=== PATIENT | male | born 1955 | race Caucasian/White ===

== ENCOUNTER 2017-04-26 16:59 | Inpatient (IN) | payer OTHER ==
--- NOTE | 2017-04-26 17:11 | PD ---
HPI Chief Complaint: BA Time Seen by Provider: 17:39 Travel History International Travel<30 days: No Contact w/Intl Traveler<30days: No Traveled to known affect area: No History of Present Illness HPI 61-year-old male presents under Dwyer act initially by the Police Department. 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 He told the [facility] hotel that he wants to and therefore police were called and he was brought here. The patient reports that he wants to . He otherwise refuses to answer any questions. 1943: The police have now reported that the patient will not be Dwyer acted and instead he is being placed under arrest because he has a warrant out for his arrest. [facility] Past Medical History Anxiety: Yes Depression: Yes Chest Pain: Yes COPD: Yes Cerebrovascular Accident: Yes (2007) Diminished Hearing: No Gastrointestinal Disorders: Yes Headaches: Yes Musculoskeletal: Yes (STATES HX BROKEN BACK AND NECK AND RIGHT HIP) Neurologic: Yes Immunizations Current: Yes Migraines: Yes Myocardial Infarction: Yes Pneumonia: Yes Seizures: Yes (HAS NOT TAKEN MEDS FOR > 1 YEAR) Past Surgical History Neurologic Surgery: No Other Surgery: No Social History Alcohol Use: Yes Tobacco Use: Yes Substance Use: No Allergies-Medications (Allergen,Severity, Reaction): Coded Allergies: codeine (Unverified Allergy, Severe, N/V, 04/26/17) propoxyphene (Unverified Allergy, Severe, HIVES, 04/26/17) Reported Meds & Prescriptions Reported Meds & Active Scripts Active Review of Systems ROS Limitations: Refused Except as stated in HPI: all other systems reviewed are Neg Physical Exam Exam Limitations: Refused Narrative GENERAL: This is a disheveled male who appears older than his stated age. He is verbally aggressive. SKIN: Warm and dry. Poor skin turgor, jaundiced. HEAD: Atraumatic. Normocephalic. EYES: Pupils equal and round. Mild scleral icterus. No injection or drainage. ENT: No nasal bleeding or discharge. Mucous membranes pink and moist. NECK: Trachea midline. No JVD. CARDIOVASCULAR: Regular rate and rhythm. No murmur appreciated. RESPIRATORY: No accessory muscle use. Some expiratory wheezing noted bilaterally. GASTROINTESTINAL: Abdomen soft, distended, ascites noted, generalized tenderness to palpation. MUSCULOSKELETAL: No obvious deformities. No clubbing. No cyanosis. No edema. NEUROLOGICAL: Awake and alert. No obvious cranial nerve deficits. Motor grossly within normal limits. Normal speech. Data Data Last Documented VS Vital Signs Date Time Temp Pulse Resp B/P (MAP) Pulse Ox O2 Delivery O2 Flow Rate FiO2 04/26/17 21:27 57 18 115/78 (90) 95 Room Air 04/26/17 17:28 98.1 Orders Orders Complete Blood Count With Diff (04/26/17 17:24) Comprehensive Metabolic Panel (04/26/17:24) Lipase (04/26/17:24) Urinalysis - C+S If Indicated (04/26/17 17:24) Iv Access Insert/Monitor (04/26/17:24) Ecg Monitoring (04/26/17:24) Oximetry (04/26/17:24) Sodium Chlor 0.9% 1000 Ml Inj (Ns 1000 M (04/26/17 17:24) Sodium Chloride 0.9% Flush (Ns Flush) (04/26/17 17:30) Electrocardiogram (04/26/17:24) Ammonia (04/26/17 17:24) Lactic Acid Sepsis Protocol (04/26/17 17:24) Blood Culture (04/26/17 17:24) Chest, Single Ap (04/26/17 17:24) Lorazepam Inj (Ativan Inj) (04/26/17 18:00) Vascular Access Team Consult/P PRN (04/26/17 17:50) Vascular Poc Ultrasound (04/26/17 ) Alcohol (Ethanol) (04/26/17 19:59) Ceftriaxone Inj (Rocephin Inj) (04/26/17 20:45) Azithromycin Inj (Zithromax Inj) (04/26/17 20:45) Urine Culture (04/26/17 20:10) Sodium Chlor 0.9% 1000 Ml Inj (Ns 1000 M (04/26/17 20:44) Ct Abd/Pel W/O Iv Contrast (04/26/17 17:24) Act Partial Throm Time (Ptt) (04/26/17 22:14) Prothrombin Time / Inr (Pt) (04/26/17 22:14) Admit Order (Ed Use Only) (04/26/17 22:15) Labs Laboratory Tests Test 04/26/17 19:50 04/26/17 20:10 White Blood Count 21.6 TH/MM3 Red Blood Count 3.58 MIL/MM3 Hemoglobin 10.1 GM/DL Hematocrit 32.0 % Mean Corpuscular Volume 89.4 FL Mean Corpuscular Hemoglobin 28.2 PG Mean Corpuscular Hemoglobin Concent 31.6 % Red Cell Distribution Width 13.5 % Platelet Count 208 TH/MM3 Mean Platelet Volume 9.5 FL Neutrophils (%) (Auto) 80.3 % Lymphocytes (%) (Auto) 11.0 % Monocytes (%) (Auto) 7.0 % Eosinophils (%) (Auto) 1.0 % Basophils (%) (Auto) 0.7 % Neutrophils # (Auto) 17.4 TH/MM3 Lymphocytes # (Auto) 2.4 TH/MM3 Monocytes # (Auto) 1.5 TH/MM3 Eosinophils # (Auto) 0.2 TH/MM3 Basophils # (Auto) 0.2 TH/MM3 CBC Comment DIFF FINAL Differential Comment Blood Urea Nitrogen 38 MG/DL Creatinine 2.51 MG/DL Random Glucose 106 MG/DL Total Protein 7.2 GM/DL Albumin 0.9 GM/DL Calcium Level 7.0 MG/DL Alkaline Phosphatase 188 U/L Aspartate Amino Transf (AST/SGOT) 121 U/L Alanine Aminotransferase (ALT/SGPT) 31 U/L Total Bilirubin 2.9 MG/DL Sodium Level 135 MEQ/L Potassium Level 3.6 MEQ/L Chloride Level 102 MEQ/L Carbon Dioxide Level 19.2 MEQ/L Anion Gap 14 MEQ/L Estimat Glomerular Filtration Rate 26 ML/MIN Lactic Acid Level 2.4 mmol/L Protein Corrected Calcium 7.0 MG/DL Ammonia 54 MCMOL/L Lipase 22 U/L Urine Color DARK-BROWN Urine Turbidity CLOUDY Urine pH 5.0 Urine Specific [place] 1.019 Urine Protein 30 mg/dL Urine Glucose (UA) NEG mg/dL Urine Ketones NEG mg/dL Urine Occult Blood SMALL Urine Nitrite NEG Urine Bilirubin MOD Urine Urobilinogen GREATER THAN 12.0 MG/DL Urine Leukocyte Esterase LARGE Urine RBC 2 /hpf Urine WBC 18 /hpf Urine Squamous Epithelial Cells 6 /hpf Urine Amorphous Sediment RARE Urine Bacteria MANY /hpf Urine Hyaline Casts 54 /lpf Microscopic Urinalysis Comment CULTURE INDICATED MDM Medical Decision Making Medical Screen Exam Complete: Yes Emergency Medical Condition: Yes Medical Record Reviewed: Yes Differential Diagnosis Failure to thrive, alcohol intoxication, alcoholic cirrhosis, SBP, pneumonia, COPD, colitis, dehydration, urinary tract infection Narrative Course 61-year-old male is brought in by EMS with the initial report that the patient was under Dwyer act for suicidal statements made at his hotel. The police arrived and reported that in fact he will not be placed under Dwyer act and instead he will be placed under arrest because he is under a warrant. On initial examination the patient appears chronically ill, jaundiced, ascites noted on examination, concerning for alcoholic cirrhosis. He has generalized mild tenderness to palpation of the abdomen without guarding. He has wheezing on auscultation of the lungs. He appears dehydrated. He is verbally aggressive. Plan is for lab work, chest x-ray, CT abdomen and pelvis. Blood cultures obtained. The patient was given IV fluids. CONCLUSION: Mild interstitial opacities in the upper left lung. No evidence of pneumothorax. Multiple left rib fractures stable from prior. Broad spectrum antibiotics initiated. CBC WBC 21.6, his calcium is 7.0, his lactic acid is 2.4 , ammonia is 54, total bilirubin is 2.9, GFR is 26, urinalysis reveals large leukocytes. CT of the abdomen and pelvis reveals severe abdominal pelvic ascites with steatosis of the liver. Discussed with the admitting hospitalist Dr. Norman who is agreeable with admission. Sepsis Criteria SIRS Criteria (2 or more): Heart rate over 90, WBC > 84931, < 4000 or > 10% bands Sepsis Criteria (SIRS+source): Infect source susp/known Severe Sepsis (+one): Lactate >2 Criteria Outcome: Meets severe sepsis criteria Diagnosis Primary Impression: Pneumonia Qualified Codes: J18.1 - Lobar pneumonia, unspecified organism Additional Impressions: Severe sepsis Acute kidney injury Hepatic encephalopathy Admitting Information Admitting Physician Requests: Admit Jace Vivas Apr 26, 2017 17:11
[2017-04-26 17:15] VITALS: BP 160/79; PULSE 102; RESP 18; TEMP 98.1; O2SAT 98
[2017-04-26 17:24] VITALS: BP 160/79; PULSE 102; RESP 18; TEMP 98.1; O2SAT 95
[2017-04-26] MEDS ORDERED: SODIUM CHLOR 0.9% 1000 ML INJ 1,000 ML IV SCH ×3 (17:24→22:17)
[2017-04-26 17:28] VITALS: BP 160/79; PULSE 102; RESP 20; TEMP 98.1; O2SAT 96
[2017-04-26] MEDS ORDERED: SODIUM CHLORIDE 0.9% FLUSH 10 ML FLUSH IV FLUSH PRN (17:30)
[2017-04-26] MEDS ORDERED: LORazepam 2 MG/ML VIAL IV PUSH ONE (18:00)
--- NOTE | 2017-04-26 18:56 | RADRPT ---
EXAM DATE/TIME: 04/26/2017 18:03 [facility] COMPARISON: CHEST SINGLE AP, April 05, 2015, 19:35. INDICATIONS : Short of breath. MEDICAL HISTORY : Chronic obstructive pulmonary disease. SURGICAL HISTORY : None. ENCOUNTER: Initial ACUITY: 1 day PAIN SCORE: Non-responsive. LOCATION: Bilateral chest FINDINGS: There is asymmetric interstitial opacity in the left upper lung. No focal areas of consolidation. T he right lung is clear. The heart is normal size. No evidence of pneumothorax. Both hemidiaphragms well delineated. Fractures of the left ribs and left clavicle. CONCLUSION: Mild interstitial opacities in the upper left lung. No evidence of pneumothorax. Multiple left rib fractures stable from prior. Cliff Lugo MD on April 26, 2017 at 18:53 Board Certified Radiologist. This report was verified electronically.
[2017-04-26 20:25] LABS: AUTOMATED NEUTROPHIL # 17.4 TH/MM3 (1.8-7.7); BASOPHIL # 0.2 TH/MM3 (0-0.2); BASOPHIL % 0.7 % (0.0-2.0); EOSINOPHIL # 0.2 TH/MM3 (0-0.4); HEMO FLAGS DIFF FINAL; LYMPHOCYTE # 2.4 TH/MM3 (1.0-4.8); MEAN CELL VOLUME 89.4 FL (80.0-100.0); MEAN CORPUSCULAR HEMOGLOBIN 28.2 PG (27.0-34.0); MEAN CORPUSCULAR HGB CONC 31.6 % (32.0-36.0); NEUT % 80.3 % (16.0-70.0); PLATELET COUNT 208 TH/MM3 (150-450); RED BLOOD COUNT 3.58 MIL/MM3 (4.50-5.90); RED CELL DISTRIBUTION WIDTH 13.5 % (11.6-17.2); WHITE BLOOD COUNT 21.6 TH/MM3 (4.0-11.0)
[2017-04-26 20:32] VITALS: BP 115/78; PULSE 75; RESP 18; O2SAT 95
[2017-04-26 20:32] LABS: BACTERIA, URINE MANY /hpf; BLOOD, URINE SMALL (NEG); COMMENT (UR) CULTURE INDICATED; CULTURE IF INDICATED CULTURE INDICATED; GLUCOSE,URINE NEG (NEG); HYALINE CAST, URINE 54 /lpf (RARE); KETONE, URINE NEG (NEG); NITRITE,URINE NEG (NEG); SQUAMOUS EPITHELIAL CELL URINE 6 /hpf (0-5); URINE COLOR DARK-BROWN (YELLW/STRAW)
[2017-04-26 20:37] LABS: BICARBONATE 19.2 MEQ/L (21.0-32.0); TOTAL BILIRUBIN ADULT 2.9 MG/DL (0.2-1.0)
[2017-04-26 20:39] LABS: POTASSIUM 3.6 MEQ/L (3.5-5.1)
[2017-04-26] MEDS ORDERED: AZITHROMYCIN INJ 500 MG in SODIUM CHLOR 0.9% 250 ML INJ 250 ML IV ONE (20:45)
[2017-04-26] MEDS ORDERED: cefTRIAXone INJ 1,000 MG in SODIUM CHLORIDE 0.9% INJ 100 ML IV ONE (20:45)
[2017-04-26 21:27] VITALS: BP 115/78; PULSE 57; RESP 18; O2SAT 95
--- NOTE | 2017-04-26 21:56 | RADRPT ---
EXAM DATE/TIME: 04/26/2017 21:23 [facility] COMPARISON: No previous studies available for comparison. INDICATIONS : Abdominal pain, failure to thrive. ORAL CONTRAST: No oral contrast ingested. RADIATION DOSE: 14.60 CTDIvol (mGy) MEDICAL HISTORY : Cardiovascular disease. Seizures. Cerebrovascular disease.renal disease SURGICAL HISTORY : ENCOUNTER: Initial ACUITY: 1 day PAIN SCALE: 5/10 LOCATION: abdomen TECHNIQUE: Volumetric scanning of the abdomen and pelvis was performed. Using automated exposure control and ad justment of the mA and/or kV according to patient size, radiation dose was kept as low as reasonably achievable to obtain optimal diagnostic quality images. DICOM format image data is available electro nically for review and comparison. FINDINGS: LOWER LUNGS: The visualized lower lungs are clear. LIVER: Severe and diffuse fatty change. No focal lesions for noncontrast technique. No calcified gallstone s. SPLEEN: Normal size without lesion. PANCREAS: Within normal limits. KIDNEYS: Normal in size and shape. There is no mass, stone, or hydronephrosis. ADRENAL GLANDS: Within normal limits. VASCULAR: There is no aortic aneurysm. BOWEL/MESENTERY: No dilated loops of small or large bowel. There is a severe amount of ascites throughout the abdomen and pelvis. ABDOMINAL WALL: Within normal limits. RETROPERITONEUM: There is no lymphadenopathy. BLADDER: No wall thickening or mass. REPRODUCTIVE: Within normal limits. INGUINAL: Fat-containing right inguinal hernia with oval opacity seen within the inguinal canal, probably repre senting testicle. MUSCULOSKELETAL: Diffuse osteopenia. CONCLUSION: 1. Severe abdomino-pelvic ascites. 2. Steatosis of the liver. 3. Right inguinal hernia. Cliff Lugo MD on April 26, 2017 at 21:52 Board Certified Radiologist. This report was verified electronically.
--- NOTE | 2017-04-26 22:04 | PD ---
Data Data Last Documented VS Vital Signs Date Time Temp Pulse Resp B/P (MAP) Pulse Ox O2 Delivery O2 Flow Rate FiO2 04/26/17 21:27 57 18 115/78 (90) 95 Room Air 04/26/17 17:28 98.1 Orders Orders Complete Blood Count With Diff (04/26/17 17:24) Comprehensive Metabolic Panel (04/26/17 17:24) Lipase (04/26/17:24) Urinalysis - C+S If Indicated (04/26/17 17:24) Iv Access Insert/Monitor (04/26/17 17:24) Ecg Monitoring (04/26/17:24) Oximetry (04/26/17:24) Sodium Chlor 0.9% 1000 Ml Inj (Ns 1000 M (04/26/17 17:24) Sodium Chloride 0.9% Flush (Ns Flush) (04/26/17 17:30) Electrocardiogram (04/26/17:24) Ammonia (04/26/17:24) Lactic Acid Sepsis Protocol (04/26/17 17:24) Blood Culture (04/26/17 17:24) Chest, Single Ap (04/26/17 17:24) Lorazepam Inj (Ativan Inj) (04/26/17 18:00) Vascular Access Team Consult/P PRN (04/26/17 17:50) Vascular Poc Ultrasound (04/26/17 ) Alcohol (Ethanol) (04/26/17 19:59) Ceftriaxone Inj (Rocephin Inj) (04/26/17 20:45) Azithromycin Inj (Zithromax Inj) (04/26/17 20:45) Urine Culture (04/26/17 20:10) Sodium Chlor 0.9% 1000 Ml Inj (Ns 1000 M (04/26/17 20:44) Ct Abd/Pel W/O Iv Contrast (04/26/17 17:24) Act Partial Throm Time (Ptt) (04/26/17 22:14) Prothrombin Time / Inr (Pt) (04/26/17 22:14) Admit Order (Ed Use Only) (04/26/17 22:15) Labs Laboratory Tests Test 04/26/17 19:50 04/26/17 20:10 White Blood Count 21.6 TH/MM3 Red Blood Count 3.58 MIL/MM3 Hemoglobin 10.1 GM/DL Hematocrit 32.0 % Mean Corpuscular Volume 89.4 FL Mean Corpuscular Hemoglobin 28.2 PG Mean Corpuscular Hemoglobin Concent 31.6 % Red Cell Distribution Width 13.5 % Platelet Count 208 TH/MM3 Mean Platelet Volume 9.5 FL Neutrophils (%) (Auto) 80.3 % Lymphocytes (%) (Auto) 11.0 % Monocytes (%) (Auto) 7.0 % Eosinophils (%) (Auto) 1.0 % Basophils (%) (Auto) 0.7 % Neutrophils # (Auto) 17.4 TH/MM3 Lymphocytes # (Auto) 2.4 TH/MM3 Monocytes # (Auto) 1.5 TH/MM3 Eosinophils # (Auto) 0.2 TH/MM3 Basophils # (Auto) 0.2 TH/MM3 CBC Comment DIFF FINAL Differential Comment Blood Urea Nitrogen 38 MG/DL Creatinine 2.51 MG/DL Random Glucose 106 MG/DL Total Protein 7.2 GM/DL Albumin 0.9 GM/DL Calcium Level 7.0 MG/DL Alkaline Phosphatase 188 U/L Aspartate Amino Transf (AST/SGOT) 121 U/L Alanine Aminotransferase (ALT/SGPT) 31 U/L Total Bilirubin 2.9 MG/DL Sodium Level 135 MEQ/L Potassium Level 3.6 MEQ/L Chloride Level 102 MEQ/L Carbon Dioxide Level 19.2 MEQ/L Anion Gap 14 MEQ/L Estimat Glomerular Filtration Rate 26 ML/MIN Lactic Acid Level 2.4 mmol/L Protein Corrected Calcium 7.0 MG/DL Ammonia 54 MCMOL/L Lipase 22 U/L Urine Color DARK-BROWN Urine Turbidity CLOUDY Urine pH 5.0 Urine Specific [place] 1.019 Urine Protein 30 mg/dL Urine Glucose (UA) NEG mg/dL Urine Ketones NEG mg/dL Urine Occult Blood SMALL Urine Nitrite NEG Urine Bilirubin MOD Urine Urobilinogen GREATER THAN 12.0 MG/DL Urine Leukocyte Esterase LARGE Urine RBC 2 /hpf Urine WBC 18 /hpf Urine Squamous Epithelial Cells 6 /hpf Urine Amorphous Sediment RARE Urine Bacteria MANY /hpf Urine Hyaline Casts 54 /lpf Microscopic Urinalysis Comment CULTURE INDICATED MDM Medical Record Reviewed: Yes Supervised Visit with OLLIE: Yes Narrative Course Please refer the mid-level note. The patient has sepsis UTI and pneumonia. Altered mental status is also noted of indeterminate chronicity. The patient does not have decisional capacity to leave AGAINST MEDICAL ADVICE or refuse care. Rocephin and azithromycin started. Prerenal azotemia with renal insufficiency of indeterminate chronicity noted. 2 L IV saline started. Diagnosis Primary Impression: Pneumonia Qualified Codes: J18.1 - Lobar pneumonia, unspecified organism Additional Impressions: Acute kidney injury Severe sepsis Hepatic encephalopathy Admitting Information Admitting Physician Requests: Admit Andrzej Hill MD Apr 26, 2017 22:04
[2017-04-26 22:13] LABS: LACTIC ACID GHOST NOT REPORTABLE
[2017-04-26] MEDS ORDERED: NALOXONE HCL 0.4 MG/ML AMP IV PUSH PRN (22:30)
[2017-04-26] MEDS ORDERED: LORazepam 2 MG TAB PO PRN (22:30)
[2017-04-26] MEDS ORDERED: SENNOSIDES 8.6 MG TAB PO PRN (22:30)
[2017-04-26] MEDS ORDERED: MAGNESIUM HYDROXIDE SUSP 30 ML CUP PO PRN (22:30)
[2017-04-26] MEDS ORDERED: LACTULOSE SYRUP 20 GM/30 ML CUP PO PRN (22:30)
[2017-04-26] MEDS ORDERED: BISACODYL 10 MG SUPP RECTAL PRN (22:30)
[2017-04-26] MEDS ORDERED: ONDANSETRON HCL 4 MG/2 ML VIAL IVP PRN (22:30)
[2017-04-26] MEDS ORDERED: LORazepam 2 MG/ML VIAL IV PUSH PRN ×4 (22:30)
[2017-04-26] MEDS ORDERED: FLUMAZENIL 0.5 MG/5 ML VIAL IV PUSH PRN (22:30)
[2017-04-26 22:53] LABS: APTT (PATIENT) 41.4 SEC (24.3-30.1); INTERNATIONAL NORMALIZED RATIO 1.5 RATIO; PROTHROMBIN TIME - PATIENT 16.4 SEC (9.8-11.6)
[2017-04-26 23:19] VITALS: BP 107/61; PULSE 94; RESP 18; TEMP 97.6; O2SAT 95
[2017-04-27] VITALS (40 sets, daily range): BP systolic 74–147; BP diastolic 50–72; PULSE 87–241; RESP 14–36; TEMP 97.6; O2SAT 95–100
[2017-04-27] MEDS ORDERED: PERMETHRIN 1% LOTION 60 ML BTL TOPICAL ONE (00:30)
[2017-04-27] MEDS: RESP: ALBUTEROL 2.5 MG/IPRATROPIUM 0.5 MG NEB (SCH) NEB ×6 (01:09→19:25)
--- NOTE | 2017-04-27 01:29 | HHI.HP ---
HPI Service [facility] ([place], [place])ists Primary Care Physician Unknown Admission Diagnosis severe sepsis, pneumonia, hepatic encephalopathy, acute kidney injur Diagnoses: Travel History International Travel<30 Days: No Contact w/Intl Traveler <30 Da: No Traveled to Known Affected Are: No History of Present Illness 61-year-old male with a past medical history significant for COPD, tobacco and alcohol abuse, seizure disorder and CVA was brought to the emergency department via EMS under supposedly Dwyer act. The patient allegedly told the route salesperson of the hotel where he is staying that he wants to . The police were called and the patient was brought to [facility]. Police reported that the patient will not be Dwyer acted but is being placed under arrest because he has an outstanding warrant. The patient was found to be wheezing severely in the emergency department, has a leukocytosis to 21.6 with a left shift and a left upper lobe pneumonia. He also has abdominal pain and severe ascites. CT of the abdomen and pelvis significant for severe abdominopelvic ascites and steatosis of the liver. Patient's lactic acid is elevated to 2.4. Ammonia 54. UA consistent with urinary tract infection. The patient refused to answer most of my questions during our interview. Review of Systems Unable to obtain as patient refused to answer Past Family Social History Past Medical History (Obtained from medical records) COPD Tobacco and alcohol abuse Cervical fracture Seizure disorder Noncompliance CVA Anxiety and depression History of subdural hematoma Past Surgical History None Reported Medications Reported Meds & Active Scripts Active Allergies: Coded Allergies: codeine (Unverified Allergy, Severe, N/V, 04/26/17) propoxyphene (Unverified Allergy, Severe, HIVES, 04/26/17) Family History Patient refuses to answer Social History Patient refuses to answer. From previous medical records smokes about 6 cigarettes per day since he was 3 years old, drinks about 2-3 beers daily. Physical Exam Vital Signs Vital Signs Date Time Temp Pulse Resp B/P (MAP) Pulse Ox O2 Delivery O2 Flow Rate FiO2 04/27/17 00:00 95 Nasal Cannula 2.00 04/26/17 23:19 97.6 94 18 107/61 (76) 95 04/26/17 23:16 04/26/17 21:27 57 18 115/78 (90) 95 Room Air 04/26/17 20:32 75 18 115/78 (90) 95 Room Air 04/26/17 17:28 98.1 102 20 160/79 (106) 96 Room Air 04/26/17 17:24 102 22 04/26/17 17:24 98.1 102 18 160/79 (106) 95 Room Air 04/26/17 17:15 98.1 102 18 160/79 (106) 98 Physical Exam GENERAL: Chronically ill appearing, disheveled male lying in bed SKIN: No rashes, ecchymoses or lesions. Cool and dry. HEAD: Atraumatic. Normocephalic. No temporal or scalp tenderness. Head lice noted. EYES: Pupils equal round and reactive. Extraocular motions intact. No scleral icterus. No injection or drainage. ENT: Nose without bleeding, purulent drainage or septal hematoma. Airway patent. NECK: Trachea midline. No JVD or lymphadenopathy. Supple, nontender, no meningeal signs. CARDIOVASCULAR: Regular rate and rhythm without murmurs, gallops, or rubs. RESPIRATORY: Bilateral expiratory wheezes. No rales or rhonchi. GASTROINTESTINAL: Abdomen protuberant, diffusely tender to palpation, tense. MUSCULOSKELETAL: Extremities without clubbing, cyanosis, or edema. No joint tenderness, effusion, or edema noted. No calf tenderness. Negative Homans sign bilaterally. NEUROLOGICAL: Awake and alert. Cranial nerves II through XII intact. Motor and sensory grossly within normal limits. Garbled speech that is difficult to understand. Laboratory Laboratory Tests Test 04/26/17 19:50 04/26/17 20:10 04/26/17 22:25 04/26/17 22:52 White Blood Count 21.6 Red Blood Count 3.58 Hemoglobin 10.1 Hematocrit 32.0 Mean Corpuscular Volume 89.4 Mean Corpuscular Hemoglobin 28.2 Mean Corpuscular Hemoglobin Concent 31.6 Red Cell Distribution Width 13.5 Platelet Count 208 Mean Platelet Volume 9.5 Neutrophils (%) (Auto) 80.3 Lymphocytes (%) (Auto) 11.0 Monocytes (%) (Auto) 7.0 Eosinophils (%) (Auto) 1.0 Basophils (%) (Auto) 0.7 Neutrophils # (Auto) 17.4 Lymphocytes # (Auto) 2.4 Monocytes # (Auto) 1.5 Eosinophils # (Auto) 0.2 Basophils # (Auto) 0.2 CBC Comment DIFF FINAL Differential Comment Blood Urea Nitrogen 38 Creatinine 2.51 Random Glucose 106 Total Protein 7.2 Albumin 0.9 Calcium Level 7.0 Alkaline Phosphatase 188 Aspartate Amino Transf (AST/SGOT) 121 Alanine Aminotransferase (ALT/SGPT) 31 Total Bilirubin 2.9 Sodium Level 135 Potassium Level 3.6 Chloride Level 102 Carbon Dioxide Level 19.2 Anion Gap 14 Estimat Glomerular Filtration Rate 26 Lactic Acid Level 2.4 2.5 Protein Corrected Calcium 7.0 Ammonia 54 Lipase 22 Ethyl Alcohol Level LESS THAN 3 Urine Color DARK-BROWN Urine Turbidity CLOUDY Urine pH 5.0 Urine Specific [place] 1.019 Urine Protein 30 Urine Glucose (UA) NEG Urine Ketones NEG Urine Occult Blood SMALL Urine Nitrite NEG Urine Bilirubin MOD Urine Urobilinogen GREATER THAN 12.0 Urine Leukocyte Esterase LARGE Urine RBC 2 Urine WBC 18 Urine Squamous Epithelial Cells 6 Urine Amorphous Sediment RARE Urine Bacteria MANY Urine Hyaline Casts 54 Microscopic Urinalysis Comment CULTURE INDICATED Prothrombin Time 16.4 Prothromb Time International Ratio 1.5 Activated Partial Thromboplast Time 41.4 Date/Time Source Procedure Growth Status 04/26/17 19:50 Blood Peripheral Aerobic Blood Culture Pending Received 04/26/17 19:50 Blood Peripheral Anaerobic Blood Culture Pending Received 04/26/17 20:10 Urine Random Urine Urine Culture Pending Received Result Diagram: 04/26/17194904/26/171949 Caprini VTE Risk Assessment Caprini VTE Risk Assessment: Mod/High Risk (score >= 2) Caprini Risk Assessment Model Point Value = 1 Point Value = 2 Point Value = 3 Point Value = 5 Age 41-60 Minor surgery BMI > 25 kg/m2 Swollen legs Varicose veins or History of unexplained or recurrent spontaneous Oral contraceptives or hormone replacement Sepsis (< 1 month) Serious lung disease, including pneumonia (< 1 month) Abnormal pulmonary function Acute myocardial infarction Congestive heart failure (< 1 month) History of inflammatory bowel disease Medical patient at bed rest Age 61-74 Arthroscopic surgery Major open surgery (> 45 min) Laparoscopic surgery (> 45 min) Malignancy Confined to bed (> 72 hours) Immobilizing plaster cast Central venous access Age >= 75 History of VTE Family history of VTE Factor V Leiden Prothrombin [id number] Lupus anticoagulant Anticardiolipin antibodies Elevated serum homocysteine Heparin-induced thrombocytopenia Other congenital or acquired thrombophilia Stroke (< 1 month) Elective arthroplasty Hip, pelvis, or leg fracture Acute spinal cord injury (< 1 month) Prophylaxis Regimen Total Risk Factor Score Risk Level Prophylaxis Regimen 0-1 Low Early ambulation 2 Moderate Order ONE of the following: *Sequential Compression Device (SCD) *Heparin 5000 units SQ BID 3-4 Higher Order ONE of the following medications: *Heparin 5000 units SQ TID *Enoxaparin/Lovenox 40 mg SQ daily (WT < 150 kg, CrCl > 30 mL/min) *Enoxaparin/Lovenox 30 mg SQ daily (WT < 150 kg, CrCl > 10-29 mL/min) *Enoxaparin/Lovenox 30 mg SQ BID (WT < 150 kg, CrCl > 30 mL/min) AND/OR *Sequential Compression Device (SCD) 5 or more Highest Order ONE of the following medications: *Heparin 5000 units SQ TID (Preferred with Epidurals) *Enoxaparin/Lovenox 40 mg SQ daily (WT < 150 kg, CrCl > 30 mL/min) *Enoxaparin/Lovenox 30 mg SQ daily (WT < 150 kg, CrCl > 10-29 mL/min) *Enoxaparin/Lovenox 30 mg SQ BID (WT < 150 kg, CrCl > 30 mL/min) AND *Sequential Compression Device (SCD) Assessment and Plan Assessment and Plan 61-year-old male with a past medical history significant for COPD, alcohol abuse , noncompliance, CVA and seizure disorder presents to the emergency department under arrest warrant. He is found to have a left upper lobe pneumonia and severe abdominopelvic ascites with accompanying abdominal pain. Urine also significant for UTI. 1. Sepsis With pneumonia and UTI Concern for SBP given abdominal pain and severe ascites Azithromycin/Rocephin IV Fluids Blood cultures pending 2. Pneumonia CXR significant for left upper lobe pneumonia, images reviewed by me Treatment as above 3. UTI Treatment as above Urine culture pending 4. Severe ascites/abdominal pain IR consulted for paracentesis Fluid studies ordered 5. Seizure disorder Patient reports he does not take any medications Unclear if previous seizures were alcohol withdrawal related Seizure precautions [place] protocol 6. COPD Duo nebs 7. Hypocalcemia Calcium carbonate 8. Rib fractures Patient with fractures of the left ribs and clavicle which are stable from previous imaging done on 04/05/15 History of falls Patient denies any rib pain 9. Alcohol abuse CIWA protocol FEN NPO NS at 70 cc/hr Electrolytes: Monitor and replete Holding pharmacologic anticoagulation in anticipation of paracentesis Physician Certification 2 Midnight Certification Type: Admission for Inpatient Services Order for Inpatient Services The services are ordered in accordance with Medicare regulations or non- Medicare payer requirements, as applicable. In the case of services not specified as inpatient-only, they are appropriately provided as inpatient services in accordance with the 2-midnight benchmark. Estimated LOS (days): 2 2 days is the estimated time the patient will need to remain in the hospital, assuming treatment plan goals are met and no additional complications. Post-Hospital Plan: Not yet determined Larisa Norman MD Apr 27, 2017 01:29
[2017-04-27] MEDS ORDERED: MULTIVITAMIN INJ 10 ML, FOLIC ACID INJ 1 MG in SODIUM CHLORID 0.9% 500 ML INJ 500 ML IV SCH (02:00)
[2017-04-27] MEDS ORDERED: THIAMINE INJ 100 MG in SODIUM CHLORIDE 0.9% INJ 100 ML IV SCH (02:00)
[2017-04-27 05:55] LABS: APTT (PATIENT) 38.9 SEC (24.3-30.1); INTERNATIONAL NORMALIZED RATIO 1.4 RATIO; PROTHROMBIN TIME - PATIENT 16.2 SEC (9.8-11.6)
[2017-04-27 06:05] LABS: AUTOMATED NEUTROPHIL # 21.3 TH/MM3 (1.8-7.7); BASOPHIL # 0.2 TH/MM3 (0-0.2); BASOPHIL % 0.6 % (0.0-2.0); EOSINOPHIL # 0.1 TH/MM3 (0-0.4); EOSINOPHIL % 0.5 % (0.0-4.0); HEMATOCRIT 35.7 % (39.0-51.0); HEMO FLAGS DIFF FINAL; LYMPH % 8.4 % (9.0-44.0); LYMPHOCYTE # 2.1 TH/MM3 (1.0-4.8); MEAN CELL VOLUME 91.5 FL (80.0-100.0); MEAN CORPUSCULAR HEMOGLOBIN 29.8 PG (27.0-34.0); MEAN CORPUSCULAR HGB CONC 32.6 % (32.0-36.0); MONO % 6.6 % (0.0-8.0); NEUT % 83.9 % (16.0-70.0); PLATELET COUNT 184 TH/MM3 (150-450); RED CELL DISTRIBUTION WIDTH 13.8 % (11.6-17.2); WHITE BLOOD COUNT 25.4 TH/MM3 (4.0-11.0)
[2017-04-27 06:19] LABS: BICARBONATE 17.5 MEQ/L (21.0-32.0); TOTAL BILIRUBIN ADULT 2.8 MG/DL (0.2-1.0)
[2017-04-27 06:26] LABS: CALCIUM-PROTEIN CORRECTED 6.8 MG/DL (8.5-10.1); POTASSIUM 2.9 MEQ/L (3.5-5.1)
[2017-04-27 07:29] LABS: BLOOD GAS BASE EXCESS -8.1 mmol/L (-2-2); BLOOD GAS CARBOXYHEMOGLOBIN 1.2 % (0-4); BLOOD GAS HCO3 16 mmol/L (22-26); BLOOD GAS METHEMOGLOBIN 0.8 % (0-2); BLOOD GAS O2 HGB SATURATION 96 % (90-100); BLOOD GAS OXYGEN CONTENT 14.2 Vol % (12.0-20.0); BLOOD GAS PCO2 29 mmHg (38-42); BLOOD GAS PO2 126 mmHg (61-120); BLOOD GAS TOTAL HGB 10.3 G/DL (12.0-16.0); CRITICAL VALUE YES; DRAW SITE RT RADIAL; LITER FLOW 4 L/M; NUMBER OF ARTERIAL PUNCTURES 1; OXYGEN DEVICE NASAL CANNULA; STAT YES; TEMP CORR TO 98.6; ULNAR PULSE PRESENT
[2017-04-27 07:32] LABS: LACTIC ACID GHOST NOT REPORTABLE
[2017-04-27] MEDS ORDERED: SODIUM CHLORID 0.9% 500 ML INJ 500 ML IV ONE (08:15)
[2017-04-27] MEDS: CALCIUM CARBONATE 1.25 GM (CA 500 MG) TAB PO SCH ×2 (09:00→22:15)
[2017-04-27] MEDS: DOCUSATE SODIUM 50 MG/SENNA 8.6 MG TAB PO SCH ×2 (09:00→22:15)
[2017-04-27] MEDS: AZITHROMYCIN 250 MG TAB PO SCH (09:00)
[2017-04-27] MEDS: SODIUM CHLORIDE 0.9% FLUSH 10 ML FLUSH IV FLUSH SCH ×2 (09:29→22:16)
[2017-04-27] MEDS: POTASSIUM CHLOR 20 MEQ PREMIX 100 ML IV SCH ×2 (09:29→11:31)
[2017-04-27 09:31] LABS: BLOOD GAS BASE EXCESS -9.8 mmol/L (-2-2); BLOOD GAS CARBOXYHEMOGLOBIN 0.8 % (0-4); BLOOD GAS HCO3 15 mmol/L (22-26); BLOOD GAS METHEMOGLOBIN 1.1 % (0-2); BLOOD GAS O2 HGB SATURATION 96 % (90-100); BLOOD GAS OXYGEN CONTENT 14.2 Vol % (12.0-20.0); BLOOD GAS PCO2 28 mmHg (38-42); BLOOD GAS PO2 135 mmHg (61-120); BLOOD GAS TOTAL HGB 10.3 G/DL (12.0-16.0); TEMP CORR TO 98.6
[2017-04-27 09:32] LABS: CRITICAL VALUE YES; DRAW SITE RT RADIAL; LITER FLOW 4 L/M; NUMBER OF ARTERIAL PUNCTURES 1; OXYGEN DEVICE NASAL CANNULA; STAT YES; ULNAR PULSE PRESENT
[2017-04-27] MEDS ORDERED: ETOMIDATE 40 MG/20 ML VIAL ONE (09:51)
[2017-04-27] MEDS ORDERED: CALCIUM CHLORIDE INJ 1 GM in SODIUM CHLORIDE 0.9% INJ 100 ML IV ONE (10:00)
[2017-04-27] MEDS ORDERED: PROPOFOL 1000 MG/100 ML INJ 100 ML IV PRN (10:00)
[2017-04-27] MEDS ORDERED: VANCOMYCIN INJ 1,000 MG in SODIUM CHLOR 0.9% 250 ML INJ 250 ML IV ONE (10:00)
[2017-04-27] MEDS ORDERED: SODIUM CHLOR 0.9% 1000 ML INJ 1,000 ML IV ONE ×2 (10:00→12:30)
[2017-04-27] MEDS ORDERED: SODIUM BICARBONATE 8.4% INJ 50 MEQ/50 ML SYR IV PUSH ONE (10:00)
[2017-04-27] MEDS ORDERED: TERBUTALINE INJ 1 MG/ML AMP SQ PRN (10:00)
[2017-04-27] MEDS ORDERED: ETOMIDATE 20 MG/10 ML VIAL IV PUSH ONE (10:02)
[2017-04-27] MEDS: fentaNYL DRIP 250 ML IV PRN (10:30)
--- NOTE | 2017-04-27 11:12 | RADRPT ---
EXAM DATE/TIME: 04/27/2017 10:38 [facility] COMPARISON: CHEST SINGLE AP, April 26, 2017, 18:03. INDICATIONS : Post central line placement and ET tube. MEDICAL HISTORY : Cardiovascular disease. Seizures. Cerebrovascular disease.renal disease SURGICAL HISTORY : None. ENCOUNTER: Initial ACUITY: 1 day PAIN SCORE: Non-responsive. LOCATION: Bilateral chest FINDINGS: ET tube at the level of the clavicles. Right IJ central line with tip in the central SVC. Mild diffus e interstitial prominence with mild airspace disease at the left lung base. Cardio mediastinal contou rs are within normal limits. Bilateral rib fractures similar to prior. Remainder of the exam is uncha nged. CONCLUSION: 1. ETT and right IJ central line in good position. No pneumothorax. 2. Mild left lung base airspace disease, likely atelectasis. 3. Remainder the exam is unchanged. Wallace Cordoba MD on April 27, 2017 at 11:08 Board Certified Radiologist. This report was verified electronically.
[2017-04-27] MEDS: DEXT 5%-NACL 0.9% 1000 ML INJ 1,000 ML IV SCH (11:30)
[2017-04-27] MEDS: PIPERACIL-TAZO 3.375 GM PREMIX 50 ML IV SCH ×2 (11:30→17:19)
--- NOTE | 2017-04-27 11:50 | PD.PSY.CON ---
Provisional Diagnosis Admission Date Apr 26, 2017 at 22:16 History of Present Illness Service Psychiatry Consult Requested By Critical care team Reason for Consult Suicidal ideation Primary Care Physician Unknown Past Family Social History Coded Allergies: codeine (Unverified Allergy, Severe, N/V, 04/26/17) propoxyphene (Unverified Allergy, Severe, HIVES, 04/26/17) Current Medications Medications (Trade) Dose Ordered Sig/Shanelle Route Start Time Stop Time Status Last Admin (NS Flush) 2 ml UNSCH PRN IV FLUSH 04/26/17 22:30 (NS Flush) 2 ml BID IV FLUSH 04/27/17 09:00 04/27/17 09:29 (Zofran Inj) 4 mg Q6H PRN IVP 04/26/17 22:30 (Narcan Inj) 0.4 mg UNSCH PRN IV PUSH 04/26/17 22:30 (Yue-Colace) 1 tab BID PO 04/27/17 09:00 (Milk Of Magnesia Liq) 30 ml Q12H PRN PO 04/26/17 22:30 (Senokot) 17.2 mg Q12H PRN PO 04/26/17 22:30 (Dulcolax Supp) 10 mg DAILY PRN RECTAL 04/26/17 22:30 (Lactulose Liq) 30 ml DAILY PRN PO 04/26/17 22:30 (Romazicon Inj) 0.2 mg Q1M PRN IV PUSH 04/26/17 22:30 (Ativan) 1 mg Q4H PRN PO 04/26/17 22:30 (Ativan Inj) 1 mg Q4H PRN IV PUSH 04/26/17 22:30 04/27/17 01:08 (Ativan) 2 mg Q2H PRN PO 04/26/17 22:30 (Ativan Inj) 2 mg Q2H PRN IV PUSH 04/26/17 22:30 (Ativan Inj) 2 mg Q1H PRN IV PUSH 04/26/17 22:30 (Ativan Inj) 2 mg Q15M PRN IV PUSH 04/26/17 22:30 (Zithromax) 250 mg DAILY PO 04/27/17 09:00 (Duoneb Neb) 1 ampule Q4HR NEB NEB 04/27/17 00:45 04/27/17 07:35 Multivitamins 10 ml/Folic Acid 1 mg/Sodium Chloride 510.2 ml @ 125 mls/hr Q24H IV 04/27/17 02:00 05/02/17 01:59 04/27/17 02:16 Thiamine HCl 100 mg/Sodium Chloride 101 ml @ 100 mls/hr Q24H IV 04/27/17 02:00 04/30/17 01:59 04/27/17 02:16 (Vitamin B1) 100 mg DAILY PO 04/30/17 09:00 (Oscal) 500 mg Q12HR PO 04/27/17 09:00 Potassium Chloride 100 ml @ 50 mls/hr Q2H IV 04/27/17 09:00 04/27/17 12:59 04/27/17 11:31 Fentanyl Citrate 250 ml @ 5 mls/hr TITRATE PRN IV 04/27/17 10:00 Propofol 100 ml @ 2.106 mls/ hr TITRATE PRN IV 04/27/17 10:00 (Brethine Inj) 1 mg UNSCH PRN SQ 04/27/17 10:00 Piperacillin Sod/ Tazobactam Sod 50 ml @ 100 mls/hr Q8H IV 04/27/17 10:00 04/27/17 11:30 Dextrose/Sodium Chloride 1,000 ml @ 84 mls/hr [id number] IV 04/27/17 10:00 04/27/17 11:30 Physical Exam Vital Signs Vital Signs Date Time Temp Pulse Resp B/P (MAP) Pulse Ox O2 Delivery O2 Flow Rate FiO2 04/27/17 10:17 100 100 04/27/17 07:36 Nasal Cannula 4.00 04/27/17 04:00 97.6 101 20 101/67 (78) I/O 04/27/17 04/27/17 04/28/17 08:00 16:00 00:00 Intake Total 100 ml 500 ml Balance 100 ml 500 ml Lab Results Test 04/26/17 19:50 04/26/17 20:10 04/26/17 22:25 04/26/17 22:52 White Blood Count 21.6 TH/MM3 Red Blood Count 3.58 MIL/MM3 Hemoglobin 10.1 GM/DL Hematocrit 32.0 % Mean Corpuscular Volume 89.4 FL Mean Corpuscular Hemoglobin 28.2 PG Mean Corpuscular Hemoglobin Concent 31.6 % Red Cell Distribution Width 13.5 % Platelet Count 208 TH/MM3 Mean Platelet Volume 9.5 FL Neutrophils (%) (Auto) 80.3 % Lymphocytes (%) (Auto) 11.0 % Monocytes (%) (Auto) 7.0 % Eosinophils (%) (Auto) 1.0 % Basophils (%) (Auto) 0.7 % Neutrophils # (Auto) 17.4 TH/MM3 Lymphocytes # (Auto) 2.4 TH/MM3 Monocytes # (Auto) 1.5 TH/MM3 Eosinophils # (Auto) 0.2 TH/MM3 Basophils # (Auto) 0.2 TH/MM3 CBC Comment DIFF FINAL Differential Comment Blood Urea Nitrogen 38 MG/DL Creatinine 2.51 MG/DL Random Glucose 106 MG/DL Total Protein 7.2 GM/DL Albumin 0.9 GM/DL Calcium Level 7.0 MG/DL Alkaline Phosphatase 188 U/L Aspartate Amino Transf (AST/SGOT) 121 U/L Alanine Aminotransferase (ALT/SGPT) 31 U/L Total Bilirubin 2.9 MG/DL Sodium Level 135 MEQ/L Potassium Level 3.6 MEQ/L Chloride Level 102 MEQ/L Carbon Dioxide Level 19.2 MEQ/L Anion Gap 14 MEQ/L Estimat Glomerular Filtration Rate 26 ML/MIN Lactic Acid Level 2.4 mmol/L 2.5 mmol/L Protein Corrected Calcium 7.0 MG/DL Ammonia 54 MCMOL/L Lipase 22 U/L Ethyl Alcohol Level LESS THAN 3 MG/DL Urine Color DARK-BROWN Urine Turbidity CLOUDY Urine pH 5.0 Urine Specific [place] 1.019 Urine Protein 30 mg/dL Urine Glucose (UA) NEG mg/dL Urine Ketones NEG mg/dL Urine Occult Blood SMALL Urine Nitrite NEG Urine Bilirubin MOD Urine Urobilinogen GREATER THAN 12.0 MG/DL Urine Leukocyte Esterase LARGE Urine RBC 2 /hpf Urine WBC 18 /hpf Urine Squamous Epithelial Cells 6 /hpf Urine Amorphous Sediment RARE Urine Bacteria MANY /hpf Urine Hyaline Casts 54 /lpf Microscopic Urinalysis Comment CULTURE INDICATED Prothrombin Time 16.4 SEC Prothromb Time International Ratio 1.5 RATIO Activated Partial Thromboplast Time 41.4 SEC Test 04/27/17 05:20 04/27/17 07:21 04/27/17 08:37 04/27/17 09:22 White Blood Count 25.4 TH/MM3 Red Blood Count 3.90 MIL/MM3 Hemoglobin 11.6 GM/DL Hematocrit 35.7 % Mean Corpuscular Volume 91.5 FL Mean Corpuscular Hemoglobin 29.8 PG Mean Corpuscular Hemoglobin Concent 32.6 % Red Cell Distribution Width 13.8 % Platelet Count 184 TH/MM3 Mean Platelet Volume 9.7 FL Neutrophils (%) (Auto) 83.9 % Lymphocytes (%) (Auto) 8.4 % Monocytes (%) (Auto) 6.6 % Eosinophils (%) (Auto) 0.5 % Basophils (%) (Auto) 0.6 % Neutrophils # (Auto) 21.3 TH/MM3 Lymphocytes # (Auto) 2.1 TH/MM3 Monocytes # (Auto) 1.7 TH/MM3 Eosinophils # (Auto) 0.1 TH/MM3 Basophils # (Auto) 0.2 TH/MM3 CBC Comment DIFF FINAL Differential Comment Prothrombin Time 16.2 SEC Prothromb Time International Ratio 1.4 RATIO Activated Partial Thromboplast Time 38.9 SEC Blood Urea Nitrogen 36 MG/DL Creatinine 2.32 MG/DL Random Glucose 98 MG/DL Total Protein 7.1 GM/DL Albumin 1.0 GM/DL Calcium Level 6.8 MG/DL Alkaline Phosphatase 196 U/L Aspartate Amino Transf (AST/SGOT) 127 U/L Alanine Aminotransferase (ALT/SGPT) 38 U/L Total Bilirubin 2.8 MG/DL Sodium Level 138 MEQ/L Potassium Level 2.9 MEQ/L Chloride Level 107 MEQ/L Carbon Dioxide Level 17.5 MEQ/L Anion Gap 14 MEQ/L Estimat Glomerular Filtration Rate 29 ML/MIN Lactic Acid Level 3.0 mmol/L 3.6 mmol/L Protein Corrected Calcium 6.8 MG/DL Blood Gas Puncture Site RT RADIAL RT RADIAL Blood Gas Patient Temperature 98.6 98.6 Blood Gas HCO3 16 mmol/L 15 mmol/L Blood Gas Base Excess -8.1 mmol/L -9.8 mmol/L Blood Gas Oxygen Saturation 96 % 96 % Arterial Blood pH 7.37 7.34 Arterial Blood Partial Pressure CO2 29 mmHg 28 mmHg Arterial Blood Partial Pressure O2 126 mmHg 135 mmHg Arterial Blood Oxygen Content 14.2 Vol % 14.2 Vol % Arterial Blood Carboxyhemoglobin 1.2 % 0.8 % Arterial Blood Methemoglobin 0.8 % 1.1 % Blood Gas Hemoglobin 10.3 G/DL 10.3 G/DL Oxygen Delivery Device NASAL CANNULA NASAL CANNULA Blood Gas Liter Flow 4 L/M 4 L/M Test 04/27/17 10:55 Ammonia 57 MCMOL/L Date/Time Source Procedure Growth Status 04/26/17 19:50 Blood Peripheral Aerobic Blood Culture - Preliminary NO GROWTH IN 1 DAY Resulted 04/26/17 19:50 Blood Peripheral Anaerobic Blood Culture - Preliminary NO GROWTH IN 1 DAY Resulted 04/26/17 20:10 Urine Random Urine Urine Culture Pending Received Assessment & Plan Problem List: (1) Acute kidney injury ICD Codes: N17.9 - Acute kidney failure, unspecified Status: Acute (2) Severe sepsis ICD Codes: A41.9 - Sepsis, unspecified organism; R65.20 - Severe sepsis without septic shock Status: Acute Assessment & Plan: The patient is intubated, sedated, unable to participate in a psychiatric evaluation at this moment. Please contact me once the patient is awake and able to participate. Assessment & Plan Estimated LOS: Ramón Hanna MD Apr 27, 2017 11:50
[2017-04-27] MEDS: NOREPINEPHRINE 4 MG/D5W 250 ML IV PRN (12:00)
[2017-04-27 14:37] LABS: AUTOMATED NEUTROPHIL # 19.8 TH/MM3 (1.8-7.7); BASOPHIL # 0.1 TH/MM3 (0-0.2); BASOPHIL % 0.3 % (0.0-2.0); EOSINOPHIL # 0.1 TH/MM3 (0-0.4); EOSINOPHIL % 0.4 % (0.0-4.0); HEMATOCRIT 28.8 % (39.0-51.0); HEMO FLAGS DIFF FINAL; LYMPH % 8.3 % (9.0-44.0); LYMPHOCYTE # 1.9 TH/MM3 (1.0-4.8); MEAN CELL VOLUME 90.3 FL (80.0-100.0); MEAN CORPUSCULAR HEMOGLOBIN 29.3 PG (27.0-34.0); MEAN CORPUSCULAR HGB CONC 32.5 % (32.0-36.0); MONO % 6.2 % (0.0-8.0); NEUT % 84.8 % (16.0-70.0); PLATELET COUNT 166 TH/MM3 (150-450); RED BLOOD COUNT 3.19 MIL/MM3 (4.50-5.90); RED CELL DISTRIBUTION WIDTH 13.6 % (11.6-17.2); WHITE BLOOD COUNT 23.4 TH/MM3 (4.0-11.0)
--- NOTE | 2017-04-27 14:46 | PD.PROCEDR ---
Central Line Procedure REASON FOR PROCEDURE Central venous access PROCEDURE PERFORMED Central line placement: Right IJ CVP CONSENT Procedure was done emergently for hemodynamic monitoring ANESTHESIA Local injection of 1% Lidocaine DESCRIPTION OF THE PROCEDURE The patient was placed in supine, mild Trendelenburg position. The area was exposed and cleansed with ChloraPrep, times two. Large sterile drape was used to cover the patient, with the site exposed, under sterile conditions including cap, face mask, sterile gown, and sterile gloves. On single attempt, the introducer needle was inserted with negative pressure in syringe and venous flash was obtained. The guide wire was then advanced without any restriction and the needle was removed. The dilator was used without any complications. Using Seldinger technique the catheter was advanced over the guide wire to a depth of 20centimeters. The guide wire was removed. All ports were aspirated with dark venous blood return and flushed easily with sterile saline. All ports were capped. Antibiotic disc was placed around central line at puncture site. The central line was secured to the skin with two interrupted 2.0 silk sutures. The area was bandaged with sterile see-through central line bandage. RADIOLOGICAL DATA Ultrasound guidance was used to locate right IJ vein. CXR ordered to verify line placement. COMPLICATIONS: No apparent complications ESTIMATED BLOOD LOSS: Less than 1 cc. Sonny Khan MD Apr 27, 2017 14:46
[2017-04-27 14:59] LABS: BLOOD GAS BASE EXCESS -8.1 mmol/L (-2-2); BLOOD GAS CARBOXYHEMOGLOBIN 0.8 % (0-4); BLOOD GAS HCO3 16 mmol/L (22-26); BLOOD GAS METHEMOGLOBIN 0.9 % (0-2); BLOOD GAS O2 HGB SATURATION 97 % (90-100); BLOOD GAS OXYGEN CONTENT 15.4 Vol % (12.0-20.0); BLOOD GAS PCO2 30 mmHg (38-42); BLOOD GAS PO2 144 mmHg (61-120); BLOOD GAS TOTAL HGB 11.1 G/DL (12.0-16.0); CRITICAL VALUE YES; TEMP CORR TO 98.6
[2017-04-27 15:00] LABS: DRAW SITE RT RADIAL; FIO2 40 %; NUMBER OF ARTERIAL PUNCTURES 1; OXYGEN DEVICE VENTILATOR; STAT NO; ULNAR PULSE PRESENT; VENT SETTINGS AC 14/500/PEEP5
[2017-04-27 15:14] LABS: POTASSIUM 3.1 MEQ/L (3.5-5.1)
--- NOTE | 2017-04-27 15:24 | MB ---
cc: ASHLEY CASILLAS M.D. DATE OF CONSULTATION: 04/27/2017 DATE OF : 1955 REASON FOR CONSULTATION: The patient is a 61-year-old male with past medical history of EtOH abuse, chronic obstructive pulmonary disease, seizure disorder, cerebrovascular accident, who presented to [facility] emergency department earlier this morning via EMS, under supposedly a [place] acted. The patient told the owner/operator of the Hotel where he is staying that he wants to commit suicide. The police were called and the patient was brought in to the hospital. On arrival to the emergency department he was found to have leukocytosis with a WBC of 21.6 and was in renal failure with creatinine of 2.51. The patient also had mild lactic acidemia with elevated lactic acid level 2.4 and elevated AST 121 with total bilirubin 2.9. He had an ABG done this morning on 4 liters oxygen was which showed a pH of 7.34, CO2 28 and pAO2 135, bicarb 15, saturation 90, 6%. Chest x-ray In the ER showed mild interstitial past is in the upper left lung. He also had CT abdomen and pelvis done which showed severe ascites along with steatosis of the liver and right inguinal hernia. HELICAT was called and the patient was transferred to ICU. Critical care medicine was consulted for critical care management. When seen in ICU the patient was lethargic, unresponsive. He was subsequently intubated and placed on mechanical ventilation for airway protection. In the ICU the patient was hypotensive with systolic blood pressure in the 90s, A right IJ emergent central line was placed. He was scheduled to undergo ultrasound-guided paracentesis by the primary team. PAST MEDICAL HISTORY: 1. The past medical history significant for Chronic obstructive pulmonary disease. 2. Seizure disorder. 3. Cerebrovascular accident. 4. Anxiet/depression. 5. History of subdural hematoma. PAST SURGICAL HISTORY None ALLERGIES CODEINE and palpable toxic seen he is reported also a MEDICATIONS current medications include 1. Thiamine 2. lactulose. 3. Zosyn 4. and nine on the ED. FAMILY HISTORY Unknown SOCIAL HISTORY Previous records showed tobacco and EtOH abuse. REVIEW OF SYSTEMS As per HPI. Rest of the system unobtainable. PHYSICAL EXAMINATION IN GENERAL: A 61-year-old male intubated for airway protection and sedated with fentanyl. VITAL SIGNS: A front afebrile. Pulse of 94-101, respiratory rate of 80-20 a blood pressure 101/67, saturation 100% vent setting assist control rate of 14, tidal volume 400, PEEP of five and 50% FIO2. HEAD, EYES, EARS, NOSE, AND THROAT: Atraumatic, normocephalic pupil equal and reactive to accommodation X on muscles intact. Conjunctivae pink. Nonicteric sclerae. Oral mucosa dry mucous membranes. NECK: Supple. No JVD, adenopathy or thyromegaly. Trachea midline. Orally intubated. CARDIOVASCULAR SYSTEM: Tachycardiac normal S1-S2. No murmurs, rubs or gallops noted. PULMONARY: Pulmonary exam bilateral equal entry. No rales or wheezing. ABDOMEN: Soft, distended, ascites noted. Positive bowel sounds. EXTREMITIES: No cyanosis, clubbing, edema. NEUROLOGIC: Intubated and sedated. LABORATORY DATA Sodium of 38,002.9, chloride 107, CO2 17, BUN 36, creatinine 2.32, glucose of 98, lactic acid 3.6, corrected calcium 6.8, total bilirubin 2.8, AST 127, ALT 38 on phos 196, ammonia 57, albumin 1.0, WBC 25.4, hemoglobin 11.6, hematocrit 35, platelet count of 184, INR 1.4, PT 16 point, PEEP 60.2, PTT 38.9. RADIOGRAPHY Chest x-ray Showed mild left lung base airspace disease likely atelectasis. CT abdomen, pelvis showed ascites, steatosis of liver. IMPRESSION 1. Vent dependent respiratory failure. 2. Encephalopathy. 3. Leukocytosis 4. Ascites rule out SBP 5. Acute kidney injury. 6. Urinary tract infection. 7. Hypokalemia. 8. Lactic acidemia 9. Elevated AST. 10. ETOH abuse. 11. History of cerebrovascular accident and seizure disorder. 12. History of chronic obstructive pulmonary disease. RECOMMENDATIONS 1. Will place on fentanyl infusion for sedation and daily sedation vacation when appropriate. 2. Monitor neuro status closely. Will proceed with a CT scan of the brain to rule out acute intracranial process. 3. Placed on lactulose at 40 ml t.i.d. for elevated ammonia level measured at 57 this morning. 4. We will also check EEG given underlying history of seizure disorder. 5. Continue with vent support and maintain sats above 92%. 6. Bronchodilators in form of DuoNeb q. six and will initiate ICU vent bundle. 7. Check ABG post intubation. 8. Monitor heart rate and blood pressure closely and maintain MAP greater 65 mmHg. Serial lactic acid monitoring. 9. 10. 11. The patient received 1 liter of normal saline earlier we will give an additional 1 liter of crystalloids and placed on maintenance fluids D5 NS at 84 an hour. 12. Knee and monitor renal function Is and Os and avoid nephrotoxins. IV FLUIDS 1. As stated above. A CT scan of the abdomen and pelvis showed no evidence of hydronephrosis, masses or stones. Keep n.p.o. for now and will place on Pepcid 20 mg IV q. 12 for GI prophylaxis and pain. 2. Next monitor liver function tests and we will proceed with CT-guided paracentesis process. 3. Place on thiamine, multivitamins and folic acid. 4. To start broad-spectrum antibiotics in the form of Zosyn and monitor for signs of infections which include fever and WBC. Will consult infectious disease service. 5. Follow up on blood culture and urine culture. 6. In addition will check a sputum culture with gram stain. 7. On a monitor CBC next GI prophylaxis with Pepcid 20 mg IV q. 12 and DVT prophylaxis with SCDs. 8. Will hold off on chemical anticoagulation prophylaxis for now as The patient will need paracentesis. 9. Lines: Right IJ central line was placed today. Patient is critically ill with respiratory failure, encephalopathy, ascites and possible SBP, Sepsis and renal failure. Critical care time 40 minutes excluding procedures. MD SHERRI Jefferson/violet /1:14 PM /2:22 PM KATIUSKA
[2017-04-27 15:54] LABS: CALCIUM-PROTEIN CORRECTED 6.3 MG/DL (8.5-10.1)
--- NOTE | 2017-04-27 15:59 | RADRPT ---
EXAM DATE/TIME: 04/27/2017 15:44 [facility] COMPARISON: CT BRAIN W/O CONTRAST, April 05, 2015, 20:13. INDICATIONS : Altered mental status. RADIATION DOSE: 48.22 CTDIvol (mGy) MEDICAL HISTORY : Stroke. Seizures. Chronic obstructive pulmonary disease. SURGICAL HISTORY : None. ENCOUNTER: Initial ACUITY: 1 day PAIN SCALE: Non-responsive LOCATION: cranial TECHNIQUE: Multiple contiguous axial images were obtained of the head. Using automated exposure control and adj ustment of the mA and/or kV according to patient size, radiation dose was kept as low as reasonably a chievable to obtain optimal diagnostic quality images. DICOM format image data is available electro nically for review and comparison. FINDINGS: CEREBRUM: There some areas of encephalomalacia in the right temporal tip, unchanged . There is diffuse atrophy present, unchanged . Questionable encephalomalacia in the left orbital frontal cortices. The ventri cles are normal for age. No evidence of midline shift, mass lesion, hemorrhage or acute infarction. No extra-axial fluid collections are seen. POSTERIOR FOSSA: The cerebellum and brainstem are intact. The 4th ventricle is midline. The cerebellopontine angle i s unremarkable. EXTRACRANIAL: The visualized portion of the orbits is intact. SKULL: The calvaria is intact. No evidence of skull fracture. CONCLUSION: Diffuse atrophy is present. Areas of encephalomalacia involving the right temporal tip and the left o rbitofrontal cortices. No evidence of acute hemorrhage or edema Jesus Duncan MD on April 27, 2017 at 15:56 Board Certified Radiologist. This report was verified electronically.
[2017-04-27] MEDS: FAMOTIDINE 20 MG/2 ML VIAL IV PUSH SCH (17:19)
[2017-04-27] MEDS: ALBUMIN 5% INJ 250 ML IV SCH (17:19)
[2017-04-27] MEDS: FOLIC ACID 1 MG TAB PO SCH (17:19)
[2017-04-27] MEDS: LACTULOSE SYRUP 20 GM/30 ML CUP PO SCH (17:20)
[2017-04-27] MEDS: MULTIVITAMIN TAB PO SCH (17:20)
[2017-04-27] MEDS ORDERED: POTASSIUM CHLOR 20 MEQ PREMIX 100 ML IV ONE (17:30)
[2017-04-27] MEDS ORDERED: CALCIUM GLUCONATE INJ 1 GM in SODIUM CHLORIDE 0.9% INJ 100 ML IV ONE (17:30)
--- NOTE | 2017-04-27 17:55 | PD.ID.CON ---
History of Present Illness Service ID Consult Requested By Dr Villegas Reason for Consult sepsis, UTI Primary Care Physician Unknown Diagnoses: History of Present Illness 61 yo male with h/o ETOHism presented under Dwyer act initially by the [employer]. He is unable to provide history Apparently initially was admitted to the floor, but deteriorated and this morning developped MS change and resp distress, was resusitated, intubated and placed on mech ventilation He presented with leukocytosis > 20K and worsening lactic acisosis His urinalysis was abnormal, urine clx growing GNB He is currently critically ill, unstable in renal failure and acute vent dependent resp failure He makes no urine He is on low dose pressors W/u showed CT head without evidence of acute hemorrhage or edema Chest X-Ray with mild left lung base airspace disease, likely atelectasis His Abdomen/Pelvis CT showed severe abdomino-pelvic ascites and steatosis of the liver RN reports no respiratory secretions Review of Systems ROS Limitations: Clinical Condition, Intubated, Altered Mental Status, Unresponsive Past Family Social History Allergies: Coded Allergies: codeine (Unverified Allergy, Severe, N/V, 04/26/17) propoxyphene (Unverified Allergy, Severe, HIVES, 04/26/17) Past Medical History 1. Chronic obstructive pulmonary disease. 2. Seizure disorder. 3. Cerebrovascular accident. 4. Anxiet/depression. 5. History of subdural hematoma. Past Surgical History None per records Active Ordered Medications Medications where reviewed in EMR Antibiotics Include: vanco radha elizabeth Family History Unknown Social History records showed tobacco and EtOH abuse. Physical Exam Vital Signs Vital Signs Date Time Temp Pulse Resp B/P (MAP) Pulse Ox O2 Delivery O2 Flow Rate FiO2 04/27/17 16:00 50 04/27/17 14:44 100 40 04/27/17 12:37 100 40 04/27/17 12:00 50 04/27/17 10:45 50 04/27/17 10:17 100 100 04/27/17 10:00 100 04/27/17 07:36 100 Nasal Cannula 4.00 04/27/17 04:00 97.6 101 20 101/67 (78) 95 04/27/17 00:00 95 Nasal Cannula 2.00 04/26/17 23:19 97.6 94 18 107/61 (76) 95 04/26/17 23:16 04/26/17 21:27 57 18 115/78 (90) 95 Room Air 04/26/17 20:32 75 18 115/78 (90) 95 Room Air 04/26/17 17:28 98.1 102 20 160/79 (106) 96 Room Air 04/26/17 17:24 102 22 04/26/17 17:24 98.1 102 18 160/79 (106) 95 Room Air Physical Exam CONSTITUTIONAL/GENERAL: This is an adequately nourished patient, in no apparent distress. TUBES/LINES/DRAINS: SKIN: No jaundice, rashes, or lesions. Skin temperature appropriate. Not diaphoretic. HEAD: Atraumatic. Normocephalic. EYES: Pupils equal and round and reactive. Extraocular motions intact. No scleral icterus. No injection or drainage. Fundi not examined. ENT: Hearing grossly normal. Nose without bleeding or purulent drainage. Oral mucosae dry without visible erythema, exudates, masses, or lesions. Edentulous Orallly intubated NECK: Trachea midline. Supple, nontender. CARDIOVASCULAR: Regular rate and rhythm without murmurs, gallops, or rubs. No JVD. Peripheral pulses symmetric. RESPIRATORY/CHEST: Symmetric, unlabored respirations. Clear to auscultation. Breath sounds equal bilaterally. No wheezes, rales, or rhonchi. GASTROINTESTINAL: Abdomen soft, no reaction to palpation, distended. No hepato- splenomegaly, or palpable masses. No guarding. Bowel sounds present. GENITOURINARY: Without palpable bladder distension. Castellano catheter in place with scant amount of tea coloured urine MUSCULOSKELETAL: Extremities without clubbing, cyanosis, or edema. No joint tenderness or effusion noted. No calf tenderness. No mottling or clubbing. LYMPHATICS: No palpable cervical or supraclavicular adenopathy. NEUROLOGICAL: Unresponsive PSYCHIATRIC: unable to assess Laboratory Laboratory Tests Test 04/26/17 19:50 04/26/17 20:10 04/26/17 22:25 04/26/17 22:52 White Blood Count 21.6 Red Blood Count 3.58 Hemoglobin 10.1 Hematocrit 32.0 Mean Corpuscular Volume 89.4 Mean Corpuscular Hemoglobin 28.2 Mean Corpuscular Hemoglobin Concent 31.6 Red Cell Distribution Width 13.5 Platelet Count 208 Mean Platelet Volume 9.5 Neutrophils (%) (Auto) 80.3 Lymphocytes (%) (Auto) 11.0 Monocytes (%) (Auto) 7.0 Eosinophils (%) (Auto) 1.0 Basophils (%) (Auto) 0.7 Neutrophils # (Auto) 17.4 Lymphocytes # (Auto) 2.4 Monocytes # (Auto) 1.5 Eosinophils # (Auto) 0.2 Basophils # (Auto) 0.2 CBC Comment DIFF FINAL Differential Comment Blood Urea Nitrogen 38 Creatinine 2.51 Random Glucose 106 Total Protein 7.2 Albumin 0.9 Calcium Level 7.0 Alkaline Phosphatase 188 Aspartate Amino Transf (AST/SGOT) 121 Alanine Aminotransferase (ALT/SGPT) 31 Total Bilirubin 2.9 Sodium Level 135 Potassium Level 3.6 Chloride Level 102 Carbon Dioxide Level 19.2 Anion Gap 14 Estimat Glomerular Filtration Rate 26 Lactic Acid Level 2.4 2.5 Protein Corrected Calcium 7.0 Ammonia 54 Lipase 22 Ethyl Alcohol Level LESS THAN 3 Urine Color DARK-BROWN Urine Turbidity CLOUDY Urine pH 5.0 Urine Specific [place] 1.019 Urine Protein 30 Urine Glucose (UA) NEG Urine Ketones NEG Urine Occult Blood SMALL Urine Nitrite NEG Urine Bilirubin MOD Urine Urobilinogen GREATER THAN 12.0 Urine Leukocyte Esterase LARGE Urine RBC 2 Urine WBC 18 Urine Squamous Epithelial Cells 6 Urine Amorphous Sediment RARE Urine Bacteria MANY Urine Hyaline Casts 54 Microscopic Urinalysis Comment CULTURE INDICATED Prothrombin Time 16.4 Prothromb Time International Ratio 1.5 Activated Partial Thromboplast Time 41.4 Test 04/27/17 05:20 04/27/17 07:21 04/27/17 08:37 04/27/17 09:22 White Blood Count 25.4 Red Blood Count 3.90 Hemoglobin 11.6 Hematocrit 35.7 Mean Corpuscular Volume 91.5 Mean Corpuscular Hemoglobin 29.8 Mean Corpuscular Hemoglobin Concent 32.6 Red Cell Distribution Width 13.8 Platelet Count 184 Mean Platelet Volume 9.7 Neutrophils (%) (Auto) 83.9 Lymphocytes (%) (Auto) 8.4 Monocytes (%) (Auto) 6.6 Eosinophils (%) (Auto) 0.5 Basophils (%) (Auto) 0.6 Neutrophils # (Auto) 21.3 Lymphocytes # (Auto) 2.1 Monocytes # (Auto) 1.7 Eosinophils # (Auto) 0.1 Basophils # (Auto) 0.2 CBC Comment DIFF FINAL Differential Comment Prothrombin Time 16.2 Prothromb Time International Ratio 1.4 Activated Partial Thromboplast Time 38.9 Blood Urea Nitrogen 36 Creatinine 2.32 Random Glucose 98 Total Protein 7.1 Albumin 1.0 Calcium Level 6.8 Alkaline Phosphatase 196 Aspartate Amino Transf (AST/SGOT) 127 Alanine Aminotransferase (ALT/SGPT) 38 Total Bilirubin 2.8 Sodium Level 138 Potassium Level 2.9 Chloride Level 107 Carbon Dioxide Level 17.5 Anion Gap 14 Estimat Glomerular Filtration Rate 29 Lactic Acid Level 3.0 3.6 Protein Corrected Calcium 6.8 Blood Gas Puncture Site RT RADIAL RT RADIAL Blood Gas Patient Temperature 98.6 98.6 Blood Gas HCO3 16 15 Blood Gas Base Excess -8.1 -9.8 Blood Gas Oxygen Saturation 96 96 Arterial Blood pH 7.37 7.34 Arterial Blood Partial Pressure CO2 29 28 Arterial Blood Partial Pressure O2 126 135 Arterial Blood Oxygen Content 14.2 14.2 Arterial Blood Carboxyhemoglobin 1.2 0.8 Arterial Blood Methemoglobin 0.8 1.1 Blood Gas Hemoglobin 10.3 10.3 Oxygen Delivery Device NASAL CANNULA NASAL CANNULA Blood Gas Liter Flow 4 4 Test 04/27/17 10:55 04/27/17 13:00 04/27/17 14:25 04/27/17 14:50 Ammonia 57 Urine Opiates Screen NEG Urine Barbiturates Screen NEG Urine Amphetamines Screen NEG Urine Benzodiazepines Screen NEG Urine Cocaine Screen NEG Urine Cannabinoids Screen NEG White Blood Count 23.4 Red Blood Count 3.19 Hemoglobin 9.4 Hematocrit 28.8 Mean Corpuscular Volume 90.3 Mean Corpuscular Hemoglobin 29.3 Mean Corpuscular Hemoglobin Concent 32.5 Red Cell Distribution Width 13.6 Platelet Count 166 Mean Platelet Volume 9.3 Neutrophils (%) (Auto) 84.8 Lymphocytes (%) (Auto) 8.3 Monocytes (%) (Auto) 6.2 Eosinophils (%) (Auto) 0.4 Basophils (%) (Auto) 0.3 Neutrophils # (Auto) 19.8 Lymphocytes # (Auto) 1.9 Monocytes # (Auto) 1.5 Eosinophils # (Auto) 0.1 Basophils # (Auto) 0.1 CBC Comment DIFF FINAL Differential Comment Blood Urea Nitrogen 35 Creatinine 2.32 Random Glucose 154 Total Protein 6.1 Calcium Level 5.9 Sodium Level 144 Potassium Level 3.1 Chloride Level 113 Carbon Dioxide Level 19.0 Anion Gap 12 Estimat Glomerular Filtration Rate 29 Lactic Acid Level 3.6 Protein Corrected Calcium 6.3 Blood Gas Puncture Site RT RADIAL Blood Gas Patient Temperature 98.6 Blood Gas HCO3 16 Blood Gas Base Excess -8.1 Blood Gas Oxygen Saturation 97 Arterial Blood pH 7.36 Arterial Blood Partial Pressure CO2 30 Arterial Blood Partial Pressure O2 144 Arterial Blood Oxygen Content 15.4 Arterial Blood Carboxyhemoglobin 0.8 Arterial Blood Methemoglobin 0.9 Blood Gas Hemoglobin 11.1 Oxygen Delivery Device VENTILATOR Blood Gas Ventilator Setting AC 14/500/PEEP5 Blood Gas Inspired Oxygen 40 Test 04/27/17 16:00 Date/Time Source Procedure Growth Status 04/26/17 19:50 Blood Peripheral Aerobic Blood Culture - Preliminary NO GROWTH IN 1 DAY Resulted 04/26/17 19:50 Blood Peripheral Anaerobic Blood Culture - Preliminary NO GROWTH IN 1 DAY Resulted 04/27/17 16:00 Fluid Peritoneal Fluid Gram Stain Pending Received 04/27/17 16:00 Fluid Peritoneal Fluid Body Fluid Culture Pending Received 04/26/17 20:10 Urine Random Urine Urine Culture - Preliminary Gram Negative Anuj Resulted Result Diagram: 04/27/17 1425 04/27/17 1425 Imaging Last Impressions Head CT 04/27/17 0000 Signed Impressions: Service Date/Time: Thursday, April 27, 2017 15:44 - CONCLUSION: Diffuse atrophy is present. Areas of encephalomalacia involving the right temporal tip and the left orbitofrontal cortices. No evidence of acute hemorrhage or edema Jesus Duncan MD Chest X-Ray 04/27/17 0000 Signed Impressions: Service Date/Time: Thursday, April 27, 2017 10:38 - CONCLUSION: 1. ETT and right IJ central line in good position. No pneumothorax. 2. Mild left lung base airspace disease, likely atelectasis. 3. Remainder the exam is unchanged. Wallace Cordoba MD Abdomen/Pelvis CT 04/26/17 0834 Signed Impressions: Service Date/Time: Wednesday, April 26, 2017 21:23 - CONCLUSION: 1. Severe abdomino-pelvic ascites. 2. Steatosis of the liver. 3. Right inguinal hernia. Cliff Lugo MD Assessment and Plan Assessment and Plan Sepsis, shock critically ill, hemodynamically better On pressors, dosing going down ARF UTI, E.coli ziegler S Ascitis, r/o SBP Acute VDRF, PNA vs ARDS (more likely) - unstable, on 100% - cont broad spectrum abx - fu P urine and peritoneal fluid culture fu blood clx and cell count of peritonial fluid vanco level random dw Dr Villegas Discussed Condition With Eda Phillips MD Apr 27, 2017 17:55
--- NOTE | 2017-04-27 18:11 | EKG ---
Date Performed: 04/26/2017 Time Performed: 17:17:44 PTAGE: 61 years EKG: SINUS TACHYCARDIA LOW QRS VOLTAGE IN PRECORDIAL LEADS NONSPECIFIC T-WAVE ABNORMALITY ABNORM AL RHYTHM ECG PREVIOUS TRACING 04/05/[address] abnormality new from the old tracing. DOCTOR: Donald Cortez Interpretating Date/Time 04/27/2017 18:10:44
[2017-04-27 18:54] LABS: PERITONEAL LYMPHS 1 %; PERITONEAL MONOS 1 %; PERITONEAL POLYS(SEGS) 98 %; PERITONEAL WBC 2200 /MM3 (0-10)
--- NOTE | 2017-04-27 19:12 | MG ---
cc: WILBER BOLAND MD Lab No: Date: 04/27/17 Age: 61 Sex: M Race: REFERRING PHYSICIAN Dr. Khan An EEG was obtained on this 61-year-old patient intubated on fentanyl which is off for the EEG. This EEG is showing beta activity diffusely and there are some theta and even delta rhythms. There is also some intermixed alpha activity. There is a lot of artifact intermittently. Photic stimulation disclosed no significant change. INTERPRETATION Abnormal EEG because of [id number] slowing suggesting a [id number] diffuse disturbance of cerebral function. No epileptiform features present. MD SAMMIE Erickson/ /6:52 PM /7:13 PM
[2017-04-27] MEDS ORDERED: cefTRIAXone INJ 1,000 MG in SODIUM CHLORIDE 0.9% INJ 100 ML IV SCH (20:00)
[2017-04-27] MEDS: MICAFUNGIN INJ 150 MG in SODIUM CHLORIDE 0.9% INJ 100 ML IV SCH (22:15)
[2017-04-28] VITALS (18 sets, daily range): BP systolic 82–113; BP diastolic 53–65; PULSE 84–94; RESP 14–20; TEMP 98.1; O2SAT 96–100
[2017-04-28] MEDS: NOREPINEPHRINE 4 MG/D5W 250 ML IV PRN ×4 (00:09→16:00)
[2017-04-28] MEDS: RESP: ALBUTEROL 2.5 MG/IPRATROPIUM 0.5 MG NEB (SCH) NEB ×7 (00:10→23:39)
[2017-04-28] MEDS ORDERED: CHLORHEXIDINE GLUCONATE 2 % 1 PACK (2 CLOTHS)(extra cloths) TOPICAL PRN (00:30)
[2017-04-28] MEDS: PIPERACIL-TAZO 3.375 GM PREMIX 50 ML IV SCH ×3 (01:14→17:43)
[2017-04-28] MEDS: DEXT 5%-NACL 0.9% 1000 ML INJ 1,000 ML IV SCH ×2 (01:15→11:12)
[2017-04-28] MEDS: FAMOTIDINE 20 MG/2 ML VIAL IV PUSH SCH ×2 (01:15→13:21)
[2017-04-28] MEDS: CHLORHEXIDINE GLUCONATE 2 % 1 PACK (2 CLOTHS)(taper/protocol) TOPICAL SCH (04:00)
[2017-04-28] MEDS: ALBUMIN 5% INJ 250 ML IV SCH ×2 (04:16→16:00)
[2017-04-28 05:52] LABS: AUTOMATED NEUTROPHIL # 16.8 TH/MM3 (1.8-7.7); BASOPHIL # 0.2 TH/MM3 (0-0.2); EOSINOPHIL # 0.4 TH/MM3 (0-0.4); EOSINOPHIL % 1.9 % (0.0-4.0); HEMATOCRIT 30.6 % (39.0-51.0); HEMO FLAGS DIFF FINAL; LYMPH % 11.1 % (9.0-44.0); LYMPHOCYTE # 2.3 TH/MM3 (1.0-4.8); MEAN CELL VOLUME 90.2 FL (80.0-100.0); MEAN CORPUSCULAR HEMOGLOBIN 28.6 PG (27.0-34.0); MEAN CORPUSCULAR HGB CONC 31.7 % (32.0-36.0); MONO % 6.2 % (0.0-8.0); NEUT % 79.8 % (16.0-70.0); PLATELET COUNT 146 TH/MM3 (150-450); RED BLOOD COUNT 3.39 MIL/MM3 (4.50-5.90); RED CELL DISTRIBUTION WIDTH 13.8 % (11.6-17.2); WHITE BLOOD COUNT 21.1 TH/MM3 (4.0-11.0)
[2017-04-28 06:17] LABS: TOTAL BILIRUBIN ADULT 2.4 MG/DL (0.2-1.0)
[2017-04-28 06:23] LABS: CALCIUM-PROTEIN CORRECTED 7.3 MG/DL (8.5-10.1); POTASSIUM 2.2 MEQ/L (3.5-5.1)
[2017-04-28] MEDS ORDERED: DEXTROSE 50% IN WATER 50 ML VIAL(D50) IV PUSH PRN (07:00)
[2017-04-28] MEDS ORDERED: GLUCAGON 1 MG/ML VIAL OTHER PRN (07:00)
[2017-04-28] MEDS ORDERED: SODIUM CHLOR 0.9% 1000 ML INJ 1,000 ML IV ONE (07:00)
[2017-04-28] MEDS ORDERED: POTASSIUM CHLOR 20 MEQ PREMIX 100 ML IV SCH (07:00)
--- NOTE | 2017-04-28 07:01 | HHI.CCPN ---
Subjective Remarks/Hospital Course Patient is a 61-year-old male with past medical history of EtOH abuse, chronic obstructive pulmonary disease, seizure disorder, cerebrovascular accident, who presented to [facility] emergency department earlier this morning via EMS, under supposedly a Dwyer acted. The patient told the edge drummer of the [facility] where he is staying that he wants to commit suicide. The police were called and the patient was brought in to the hospital. On arrival to the emergency department he was found to have leukocytosis with a WBC of 21.6 and was in renal failure with creatinine of 2.51. The patient also had mild lactic acidemia with elevated lactic acid level 2.4 and elevated AST: 121 with total bilirubin 2.9. He had an ABG done this morning on 4 liters oxygen was which showed a pH of 7.34, CO2 28 and pAO2 135, bicarb 15, saturation 96%. Chest x-ray In the ER showed mild interstitial past is in the upper left lung. He also had CT abdomen and pelvis done which showed severe ascites along with steatosis of the liver and right inguinal hernia. [facility] Critical care medicine was consulted for critical care management. When seen in ICU the patient was lethargic, unresponsive. He was subsequently intubated and placed on mechanical ventilation for airway protection. In the ICU the patient was hypotensive with systolic blood pressure in the 90s, A right IJ emergent central line was placed. 04/28 Patient is intubated off sedation started on Levophed yesterday 12 mics. s /p CT guided paracentesis with removal 4L. Objective Vital Signs Date Time Temp Pulse Resp B/P (MAP) Pulse Ox O2 Delivery O2 Flow Rate FiO2 04/28/17 06:12 92 82/51 04/28/17 04:13 100 40 04/28/17 04:00 98.1 14 04/27/17 07:36 Nasal Cannula 4.00 Intake and Output 04/28/17 04/28/17 04/29/17 08:00 16:00 00:00 Intake Total 1832 ml Output Total 100 ml Balance 1732 ml Result Diagram: 04/28/17 0414 04/28/17 0414 Other Results Laboratory Tests Test 04/27/17 07:21 04/27/17 07:50 04/27/17 08:37 04/27/17 09:22 Blood Gas Puncture Site RT RADIAL RT RADIAL Blood Gas Patient Temperature 98.6 98.6 Blood Gas HCO3 16 mmol/L 15 mmol/L Blood Gas Base Excess -8.1 mmol/L -9.8 mmol/L Blood Gas Oxygen Saturation 96 % 96 % Arterial Blood pH 7.37 7.34 Arterial Blood Partial Pressure CO2 29 mmHg 28 mmHg Arterial Blood Partial Pressure O2 126 mmHg 135 mmHg Arterial Blood Oxygen Content 14.2 Vol % 14.2 Vol % Arterial Blood Carboxyhemoglobin 1.2 % 0.8 % Arterial Blood Methemoglobin 0.8 % 1.1 % Blood Gas Hemoglobin 10.3 G/DL 10.3 G/DL Oxygen Delivery Device NASAL CANNULA NASAL CANNULA Blood Gas Liter Flow 4 L/M 4 L/M Nasal Screen MRSA (PCR) MRSA NOT DETECTED Lactic Acid Level 3.6 mmol/L Test 04/27/17 10:55 04/27/17 13:00 04/27/17 14:25 04/27/17 14:50 Ammonia 57 MCMOL/L Urine Opiates Screen NEG Urine Barbiturates Screen NEG Urine Amphetamines Screen NEG Urine Benzodiazepines Screen NEG Urine Cocaine Screen NEG Urine Cannabinoids Screen NEG White Blood Count 23.4 TH/MM3 Red Blood Count 3.19 MIL/MM3 Hemoglobin 9.4 GM/DL Hematocrit 28.8 % Mean Corpuscular Volume 90.3 FL Mean Corpuscular Hemoglobin 29.3 PG Mean Corpuscular Hemoglobin Concent 32.5 % Red Cell Distribution Width 13.6 % Platelet Count 166 TH/MM3 Mean Platelet Volume 9.3 FL Neutrophils (%) (Auto) 84.8 % Lymphocytes (%) (Auto) 8.3 % Monocytes (%) (Auto) 6.2 % Eosinophils (%) (Auto) 0.4 % Basophils (%) (Auto) 0.3 % Neutrophils # (Auto) 19.8 TH/MM3 Lymphocytes # (Auto) 1.9 TH/MM3 Monocytes # (Auto) 1.5 TH/MM3 Eosinophils # (Auto) 0.1 TH/MM3 Basophils # (Auto) 0.1 TH/MM3 CBC Comment DIFF FINAL Differential Comment Blood Urea Nitrogen 35 MG/DL Creatinine 2.32 MG/DL Random Glucose 154 MG/DL Total Protein 6.1 GM/DL Calcium Level 5.9 MG/DL Sodium Level 144 MEQ/L Potassium Level 3.1 MEQ/L Chloride Level 113 MEQ/L Carbon Dioxide Level 19.0 MEQ/L Anion Gap 12 MEQ/L Estimat Glomerular Filtration Rate 29 ML/MIN Lactic Acid Level 3.6 mmol/L Protein Corrected Calcium 6.3 MG/DL Blood Gas Puncture Site RT RADIAL Blood Gas Patient Temperature 98.6 Blood Gas HCO3 16 mmol/L Blood Gas Base Excess -8.1 mmol/L Blood Gas Oxygen Saturation 97 % Arterial Blood pH 7.36 Arterial Blood Partial Pressure CO2 30 mmHg Arterial Blood Partial Pressure O2 144 mmHg Arterial Blood Oxygen Content 15.4 Vol % Arterial Blood Carboxyhemoglobin 0.8 % Arterial Blood Methemoglobin 0.9 % Blood Gas Hemoglobin 11.1 G/DL Oxygen Delivery Device VENTILATOR Blood Gas Ventilator Setting AC 14/500/PEEP5 Blood Gas Inspired Oxygen 40 % Test 04/27/17 16:00 04/28/17 04:14 Peritoneal Fluid WBC 2200 /MM3 Peritoneal Fluid RBC 211 /MM3 Peritoneal Fluid Neutrophils 98 % Peritoneal Fluid Lymphocytes 1 % Peritoneal Fluid Monocytes 1 % Peritoneal Fluid Total Protein 0.9 GM/DL Peritoneal Fluid Albumin 0.1 G/DL Peritoneal Fluid LDH 82 U/L Peritoneal Fluid Glucose 140 MG/DL White Blood Count 21.1 TH/MM3 Red Blood Count 3.39 MIL/MM3 Hemoglobin 9.7 GM/DL Hematocrit 30.6 % Mean Corpuscular Volume 90.2 FL Mean Corpuscular Hemoglobin 28.6 PG Mean Corpuscular Hemoglobin Concent 31.7 % Red Cell Distribution Width 13.8 % Platelet Count 146 TH/MM3 Mean Platelet Volume 9.4 FL Neutrophils (%) (Auto) 79.8 % Lymphocytes (%) (Auto) 11.1 % Monocytes (%) (Auto) 6.2 % Eosinophils (%) (Auto) 1.9 % Basophils (%) (Auto) 1.0 % Neutrophils # (Auto) 16.8 TH/MM3 Lymphocytes # (Auto) 2.3 TH/MM3 Monocytes # (Auto) 1.3 TH/MM3 Eosinophils # (Auto) 0.4 TH/MM3 Basophils # (Auto) 0.2 TH/MM3 CBC Comment DIFF FINAL Differential Comment Blood Urea Nitrogen 36 MG/DL Creatinine 2.34 MG/DL Random Glucose 152 MG/DL Total Protein 6.4 GM/DL Albumin 1.1 GM/DL Calcium Level 6.9 MG/DL Alkaline Phosphatase 158 U/L Aspartate Amino Transf (AST/SGOT) 126 U/L Alanine Aminotransferase (ALT/SGPT) 33 U/L Total Bilirubin 2.4 MG/DL Sodium Level 143 MEQ/L Potassium Level 2.2 MEQ/L Chloride Level 113 MEQ/L Carbon Dioxide Level 17.0 MEQ/L Anion Gap 13 MEQ/L Estimat Glomerular Filtration Rate 28 ML/MIN Protein Corrected Calcium 7.3 MG/DL Random Vancomycin Level 10.9 COMMENT Imaging Last Impressions Head CT 04/27/17 0000 Signed Impressions: Service Date/Time: Thursday, April 27, 2017 15:44 - CONCLUSION: Diffuse atrophy is present. Areas of encephalomalacia involving the right temporal tip and the left orbitofrontal cortices. No evidence of acute hemorrhage or edema Jesus Duncan MD Chest X-Ray 04/27/17 0000 Signed Impressions: Service Date/Time: Thursday, April 27, 2017 10:38 - CONCLUSION: 1. ETT and right IJ central line in good position. No pneumothorax. 2. Mild left lung base airspace disease, likely atelectasis. 3. Remainder the exam is unchanged. Wallace Cordoba MD Abdomen/Pelvis CT 04/26/17 1724 Signed Impressions: Service Date/Time: Wednesday, April 26, 2017 21:23 - CONCLUSION: 1. Severe abdomino-pelvic ascites. 2. Steatosis of the liver. 3. Right inguinal hernia. Cliff Lugo MD Objective Remarks GENERAL: Patient is 61 yo critically ill intubated and on Levophed SKIN: Warm and dry. HEAD: Normocephalic. EYES: No scleral icterus. No injection or drainage. NECK: Supple, trachea midline. No JVD or lymphadenopathy. CARDIOVASCULAR: Regular rate and rhythm without murmurs, gallops, or rubs. RESPIRATORY: Breath sounds equal bilaterally. No accessory muscle use. GASTROINTESTINAL: non-tender, distended. MUSCULOSKELETAL: No cyanosis, or edema. Neuro: Intubated A/P Assessment and Plan 1. VDRF 2. Encephalopathy. 3. Leukocytosis 4. Ascites rule out SBP 5. Acute kidney injury. 6. Urinary tract infection. 7. Hypokalemia. 8. Lactic acidemia 9. Elevated AST. 10. ETOH abuse. 11. History of cerebrovascular accident and seizure disorder. 12. History of chronic obstructive pulmonary disease. Plan Neuro: fentanyl infusion for sedation if needed. Monitor neuro status. 04/27: Mild- mod slowing. No epileptiform features. 04/27: CT brain: No acute findings Increase Lactulose 30ml QID, add Rifaximin 550mg BID, monitor Ammonia level. On Thiamine, MVI, folic acid Pulm: Continue with vent support and maintain sats above 92%. Bronchodilators, ICU vent bundle. CV: Continue with Levophed Monitor HR and BP and maintain MAP > 65 mmHg. Serial lactic acid monitoring. Check Lactic acid level and 2D echo On D5 NS at 84 an hour. Will give 1L bolus NS Start stress dose steroids- HC 50mg IV Q6 : Monitor renal function Is and Os and avoid nephrotoxins. Cr: 2.34, renal eval. Continue IVF CT scan of the abdomen and pelvis showed no evidence of hydronephrosis, masses or stones. GI: Start tube feeds- Nepro with goal rate 40 ml/hr, on Pepcid 10 mg IV q. 12 for GI prophylaxis Monitor LFT's, s/p CT guided paracentesis with removal 4L. On Albumin Follow up on fluid cx ID: Continue with abx per ID ( On Zosyn, Micafungin, Vanco) monitor for signs of infections Follow up on blood cultures Urine culture: GNR Heme: Monitor CBC GI prophylaxis with Pepcid 10 mg IV q. 12 and DVT prophylaxis with SCDs. Endo: SSI for glucemic control Lines: Right IJ central line placed 04/27 Patient is critically ill with sepsis, resp failure , renal failure, encephalopathy and UTI. CCT 30 mins Sonny Khan MD Apr 28, 2017 07:01
[2017-04-28] MEDS ORDERED: POTASSIUM CHLOR 40 MEQ PREMIX 100 ML IV ONE ×2 (07:15→15:15)
--- NOTE | 2017-04-28 07:51 | RADRPT ---
EXAM DATE/TIME: 04/27/2017 15:51 [place] COMPARISON: No previous studies available for comparison. INDICATIONS : Ascites DEVICE(S): 1.) 6 Fr [id number] Total volume of 4000 cc of cloudy, green fluid was removed. Fluid was sent for laboratory ordered studies. MEDICAL HISTORY : Cerebrovascular disease. Cardiovascular disease. Seizures. Renal dis SURGICAL HISTORY : None. ENCOUNTER: Initial ACUITY: 1 day PAIN SCORE: Non-responsive LOCATION: Right Abdomen PROCEDURE : 1. CT-guidance for abdominal paracentesis. 2. Paracentesis. The risks, benefits and alternatives to CT-guided paracentesis were explained to the patient in detai l, lay terms including the risk of bleeding and infection. Oral and written informed consent was obt ained. Using automated exposure control and adjustment of the mA and/or kV according to patient size, radiation dose was kept as low as reasonably achievable to obtain optimal diagnostic quality images. DICOM format image data is available electronically for review and comparison. The patient was scanned to select approach for paracentesis. The skin was prepped in sterile fashion . The skin and subcutaneous tissues were infiltrated with Lidocaine solution. A 6 Portuguese catheter w as introduced to the peritoneal cavity and ascites was collected. Post procedure scanning reveals no evidence of hematoma or other complication. The patient tolerated the procedure well and left the CT suite in good condition. CONCLUSION: 1. One complicated CT-guided paracentesis. 2. Profound hepatic steatosis. Wallace Cordoba MD on April 28, 2017 at 7:49 Board Certified Radiologist. This report was verified electronically.
[2017-04-28] MEDS: CALCIUM CARBONATE 1.25 GM (CA 500 MG) TAB PO SCH ×2 (08:00→21:45)
[2017-04-28] MEDS: FOLIC ACID 1 MG TAB PO SCH (08:00)
[2017-04-28] MEDS: INSULIN NovoLIN REGULAR SUPPLEMENTAL SCALE SQ SCH ×4 (08:00→20:00)
[2017-04-28] MEDS: MULTIVITAMIN TAB PO SCH (08:00)
[2017-04-28] MEDS: AZITHROMYCIN 250 MG TAB PO SCH (08:00)
[2017-04-28] MEDS: LACTULOSE SYRUP 20 GM/30 ML CUP PO SCH ×4 (08:00→21:45)
[2017-04-28] MEDS: DOCUSATE SODIUM 50 MG/SENNA 8.6 MG TAB PO SCH ×2 (08:00→21:45)
[2017-04-28] MEDS: SODIUM CHLORIDE 0.9% FLUSH 10 ML FLUSH IV FLUSH SCH ×2 (08:01→21:45)
[2017-04-28 08:08] LABS: MAGNESIUM 1.5 MG/DL (1.5-2.5)
[2017-04-28] MEDS ORDERED: VASOPRESSIN 20 UNITS/ML VIAL (IVTITR) ONE (09:25)
[2017-04-28] MEDS ORDERED: VASOPRESSIN INJ 40 UNITS in DEXTROSE 5% IN WATER 100ML INJ 98 ML IV SCH ×2 (09:27)
[2017-04-28] MEDS: HYDROCORTISONE SOD SUCCINATE 100 MG VIAL IV PUSH SCH ×3 (09:39→17:43)
--- NOTE | 2017-04-28 14:18 | PD.CONS ---
HPI Service Nephrology Consult Requested By Reason for Consult Acute Renal Failure Primary Care Physician Unknown History of Present Illness This is a 61 y/o brought in under [employer] [employer] for reported suicidal ideation. On arrival, he was found to be wheezing severely in the emergency department, had a leukocytosis to 21.6 with a left shift and a left upper lobe pneumonia. He also has abdominal pain and severe ascites. CT of the abdomen and pelvis significant for severe abdominopelvic ascites and steatosis of the liver. Patient's lactic acid is elevated to 2.4. Ammonia 54. UA consistent with urinary tract infection. His renal function was normal in November. On admission his creatinine was 2.5 that has improved and stabilized at 2.3. He is not making much urine. He is intubated, on pressors and IVF, has prominent ascites s /p 4 liters removed in paracentesis yesterday. We were consulted to assist with management. (Jayla Robins) Review of Systems ROS Limitations: Intubated, Unresponsive (Jayla Robins) Past Family Social History Allergies: Coded Allergies: codeine (Unverified Allergy, Severe, N/V, 04/26/17) propoxyphene (Unverified Allergy, Severe, HIVES, 04/26/17) Past Medical History From records: COPD Tobacco and alcohol abuse Cervical fracture Seizure disorder Noncompliance CVA Anxiety and depression History of subdural hematoma Past Surgical History Unable to obtain none per medical record Reported Medications None Active Ordered Medications Current Medications Medications (Trade) Dose Ordered Sig/Shanelle Route Start Time Stop Time Status Last Admin (NS Flush) 2 ml UNSCH PRN IV FLUSH 04/26/17 22:30 (NS Flush) 2 ml BID IV FLUSH 04/27/17 09:00 04/28/17 08:01 (Zofran Inj) 4 mg Q6H PRN IVP 04/26/17 22:30 (Narcan Inj) 0.4 mg UNSCH PRN IV PUSH 04/26/17 22:30 (Yue-Colace) 1 tab BID PO 04/27/17 09:00 04/28/17 08:00 (Milk Of Magnesia Liq) 30 ml Q12H PRN PO 04/26/17 22:30 (Senokot) 17.2 mg Q12H PRN PO 04/26/17 22:30 (Dulcolax Supp) 10 mg DAILY PRN RECTAL 04/26/17 22:30 (Lactulose Liq) 30 ml DAILY PRN PO 04/26/17 22:30 (Romazicon Inj) 0.2 mg Q1M PRN IV PUSH 04/26/17 22:30 (Ativan) 1 mg Q4H PRN PO 04/26/17 22:30 (Ativan Inj) 1 mg Q4H PRN IV PUSH 04/26/17 22:30 04/27/17 01:08 (Ativan) 2 mg Q2H PRN PO 04/26/17 22:30 (Ativan Inj) 2 mg Q2H PRN IV PUSH 04/26/17 22:30 (Ativan Inj) 2 mg Q1H PRN IV PUSH 04/26/17 22:30 (Ativan Inj) 2 mg Q15M PRN IV PUSH 04/26/17 22:30 (Zithromax) 250 mg DAILY PO 04/27/17 09:00 04/28/17 08:00 (Duoneb Neb) 1 ampule Q4HR NEB NEB 04/27/17 00:45 04/28/17 11:18 (Vitamin B1) 100 mg DAILY PO 04/30/17 09:00 (Oscal) 500 mg Q12HR PO 04/27/17 09:00 04/28/17 08:00 Fentanyl Citrate 250 ml @ 5 mls/hr TITRATE PRN IV 04/27/17 10:00 04/27/17 10:30 Propofol 100 ml @ 2.106 mls/ hr TITRATE PRN IV 04/27/17 10:00 (Brethine Inj) 1 mg UNSCH PRN SQ 04/27/17 10:00 Piperacillin Sod/ Tazobactam Sod 50 ml @ 100 mls/hr Q8H IV 04/27/17 10:00 04/28/17 09:39 Dextrose/Sodium Chloride 1,000 ml @ 84 mls/hr [id number] IV 04/27/17 10:00 04/28/17 11:12 (Lactulose Liq) 30 ml TID PO 04/27/17 13:00 04/28/17 11:58 (Pepcid Inj) 10 mg Q12H IV PUSH 04/27/17 14:00 04/28/17 13:21 (Folate) 1 mg DAILY PO 04/27/17 13:30 04/28/17 08:00 (Theragran) 1 tab DAILY PO 04/27/17 13:30 04/28/17 08:00 Norepinephrine Bitartrate 250 ml @ 7.5 mls/hr TITRATE PRN IV 04/27/17 15:15 04/28/17 11:12 Albumin Human 250 ml @ 250 mls/hr Q12H IV 04/27/17 17:00 04/28/17 04:16 Micafungin Sodium 150 mg/Sodium Chloride 100 ml @ 100 mls/hr Q24H IV 04/27/17 22:00 04/27/17 22:15 Miscellaneous Information Patient in critical care unit? Ass... [id number] .XX 04/28/17 00:30 (Chlorhexidine 2% Cloth) 3 pack DAILY@04 TOPICAL 04/28/17 04:00 05/02/17 04:01 04/28/17 04:00 (Chlorhexidine 2% Cloth) 3 pack UNSCH PRN TOPICAL 04/28/17 00:30 05/03/17 00:19 (D50w (Vial) Inj) 50 ml UNSCH PRN IV PUSH 04/28/17 07:00 (Glucagon Inj) 1 mg UNSCH PRN OTHER 04/28/17 07:00 (NovoLIN R SUPPLEMENTAL SCALE) 1 Q4HR SQ 04/28/17 08:00 (SoluCORTEF INJ) 50 mg Q6HR IV PUSH 04/28/17 07:00 04/28/17 11:59 Vasopressin 40 units/Dextrose 100 ml @ 6 mls/hr [id number] IV 04/28/17 09:45 Family History Unable to obtain Social History Reportedly smokes daily and uses ETOH regularly Employment unknown (Jayla Robins) Physical Exam Vital Signs Vital Signs Date Time Temp Pulse Resp B/P (MAP) Pulse Ox O2 Delivery O2 Flow Rate FiO2 04/28/17 14:00 87 04/28/17 12:00 98.2 92 15 95/65 (75) 99 04/28/17 12:00 35 04/28/17 12:00 93 04/28/17 11:12 91 103/55 04/28/17 10:00 92 04/28/17 09:22 100 35 04/28/17 08:00 97.7 90 15 82/53 (63) 100 04/28/17 08:00 40 04/28/17 08:00 90 04/28/17 07:49 100 40 04/28/17 06:12 92 82/51 04/28/17 06:00 91 04/28/17 04:13 100 40 04/28/17 04:00 91 04/28/17 04:00 98.1 91 14 90/57 (68) 100 04/28/17 04:00 40 04/28/17 03:00 90 89/58 04/28/17 02:00 91 04/28/17 02:00 90 87/50 04/28/17 01:21 91 83/55 04/28/17 01:05 100 40 04/28/17 00:09 90 87/55 04/28/17 00:00 97.0 90 16 87/55 (66) 100 04/28/17 00:00 90 04/28/17 00:00 40 04/27/17 23:00 90 89/59 04/27/17 22:10 89 93/54 04/27/17 22:00 87 04/27/17 22:00 87 77/51 04/27/17 20:00 94.5 89 15 90/63 (72) 100 04/27/17 20:00 40 04/27/17 20:00 89 04/27/17 19:25 100 40 04/27/17 19:10 89 94/58 04/27/17 19:00 232 89/54 04/27/17 18:00 87 04/27/17 18:00 94 94/58 04/27/17 17:50 93.4 241 15 84/51 (62) 100 04/27/17 17:40 93.4 229 17 86/50 (62) 100 04/27/17 17:30 93.6 90 18 96/57 (70) 100 04/27/17 17:30 93.6 90 18 96/57 (70) 100 04/27/17 17:30 90 96/57 04/27/17 17:20 93.6 124 15 87/52 (64) 100 04/27/17 17:19 93.6 219 16 84/53 (63) 100 04/27/17 17:01 93.4 99 21 147/72 (97) 100 04/27/17 17:01 93.4 163 21 147/72 (97) 100 04/27/17 17:00 93.4 115 33 100 04/27/17 17:00 93.4 89 33 100 04/27/17 17:00 115 147/72 04/27/17 16:50 90 79/51 04/27/17 16:40 90 81/51 04/27/17 16:37 95 16 108/58 (75) 100 04/27/17 16:32 89 19 95/59 (71) 100 04/27/17 16:00 50 04/27/17 16:00 91 14 100 04/27/17 16:00 91 04/27/17 15:00 97 17 91/61 (71) 100 04/27/17 14:44 100 40 04/27/17 14:30 93 17 94/60 (71) 100 Physical Exam GENERAL: Chronically ill appearing, disheveled male, intubated, unresponsive SKIN: No rashes, ecchymoses or lesions. Cool and dry. HEAD: Atraumatic. Normocephalic. No temporal or scalp tenderness. Head lice noted. EYES: Pupils equal round and reactive. Extraocular motions intact. No scleral icterus. No injection or drainage. ENT: Nose without bleeding, purulent drainage or septal hematoma. Airway patent. NECK: Trachea midline. No JVD or lymphadenopathy. Supple, nontender, no meningeal signs. CARDIOVASCULAR: Regular rate and rhythm without murmurs, gallops, or rubs. RESPIRATORY: Bilateral expiratory wheezes. No rales or rhonchi. Vented. GASTROINTESTINAL: Abdomen protuberant, firm. MUSCULOSKELETAL: Extremities without clubbing, cyanosis, or edema. No joint tenderness, effusion, or edema noted. No calf tenderness. NEUROLOGICAL: Sedated, unresponsive on vent. Laboratory Laboratory Tests Test 04/27/17 14:25 04/27/17 14:50 04/27/17 16:00 04/28/17 04:14 White Blood Count 23.4 21.1 Red Blood Count 3.19 3.39 Hemoglobin 9.4 9.7 Hematocrit 28.8 30.6 Mean Corpuscular Volume 90.3 90.2 Mean Corpuscular Hemoglobin 29.3 28.6 Mean Corpuscular Hemoglobin Concent 32.5 31.7 Red Cell Distribution Width 13.6 13.8 Platelet Count 166 146 Mean Platelet Volume 9.3 9.4 Neutrophils (%) (Auto) 84.8 79.8 Lymphocytes (%) (Auto) 8.3 11.1 Monocytes (%) (Auto) 6.2 6.2 Eosinophils (%) (Auto) 0.4 1.9 Basophils (%) (Auto) 0.3 1.0 Neutrophils # (Auto) 19.8 16.8 Lymphocytes # (Auto) 1.9 2.3 Monocytes # (Auto) 1.5 1.3 Eosinophils # (Auto) 0.1 0.4 Basophils # (Auto) 0.1 0.2 CBC Comment DIFF FINAL DIFF FINAL Differential Comment Blood Urea Nitrogen 35 36 Creatinine 2.32 2.34 Random Glucose 154 152 Total Protein 6.1 6.4 Calcium Level 5.9 6.9 Sodium Level 144 143 Potassium Level 3.1 2.2 Chloride Level 113 113 Carbon Dioxide Level 19.0 17.0 Anion Gap 12 13 Estimat Glomerular Filtration Rate 29 28 Lactic Acid Level 3.6 Protein Corrected Calcium 6.3 7.3 Blood Gas Puncture Site RT RADIAL Blood Gas Patient Temperature 98.6 Blood Gas HCO3 16 Blood Gas Base Excess -8.1 Blood Gas Oxygen Saturation 97 Arterial Blood pH 7.36 Arterial Blood Partial Pressure CO2 30 Arterial Blood Partial Pressure O2 144 Arterial Blood Oxygen Content 15.4 Arterial Blood Carboxyhemoglobin 0.8 Arterial Blood Methemoglobin 0.9 Blood Gas Hemoglobin 11.1 Oxygen Delivery Device VENTILATOR Blood Gas Ventilator Setting AC 14/500/PEEP5 Blood Gas Inspired Oxygen 40 Peritoneal Fluid WBC 2200 Peritoneal Fluid RBC 211 Peritoneal Fluid Neutrophils 98 Peritoneal Fluid Lymphocytes 1 Peritoneal Fluid Monocytes 1 Peritoneal Fluid Total Protein 0.9 Peritoneal Fluid Albumin 0.1 Peritoneal Fluid LDH 82 Peritoneal Fluid Glucose 140 Albumin 1.1 Alkaline Phosphatase 158 Aspartate Amino Transf (AST/SGOT) 126 Alanine Aminotransferase (ALT/SGPT) 33 Total Bilirubin 2.4 Random Vancomycin Level 10.9 Test 04/28/17 07:30 04/28/17 13:45 Lactic Acid Level 2.8 Phosphorus Level 3.0 Magnesium Level 1.5 Ammonia 77 Date/Time Source Procedure Growth Status 04/26/17 19:50 Blood Peripheral Aerobic Blood Culture - Preliminary NO GROWTH IN 2 DAYS Resulted 04/26/17 19:50 Blood Peripheral Anaerobic Blood Culture - Preliminary NO GROWTH IN 2 DAYS Resulted 04/27/17 16:00 Fluid Peritoneal Fluid Gram Stain - Final Resulted 04/27/17 16:00 Fluid Peritoneal Fluid Body Fluid Culture - Preliminary NO GROWTH IN 24 HOURS. Resulted 04/26/17 20:10 Urine Random Urine Urine Culture - Final Escherichia Coli Complete (Jayla Robins) Result Diagram: 04/28/17 0414 04/28/17 0414 Imaging Last Impressions Paracentesis 04/27/17 1452 Signed Impressions: Service Date/Time: Thursday, April 27, 2017 15:51 - CONCLUSION: 1. One complicated CT-guided paracentesis. 2. Profound hepatic steatosis. Wallace Cordoba MD Head CT 04/27/17 0000 Signed Impressions: Service Date/Time: Thursday, April 27, 2017 15:44 - CONCLUSION: Diffuse atrophy is present. Areas of encephalomalacia involving the right temporal tip and the left orbitofrontal cortices. No evidence of acute hemorrhage or edema Jesus Duncan MD Chest X-Ray 04/27/17 0000 Signed Impressions: Service Date/Time: Thursday, April 27, 2017 10:38 - CONCLUSION: 1. ETT and right IJ central line in good position. No pneumothorax. 2. Mild left lung base airspace disease, likely atelectasis. 3. Remainder the exam is unchanged. Wallace Cordoba MD Abdomen/Pelvis CT 04/26/17 1724 Signed Impressions: Service Date/Time: Wednesday, April 26, 2017 21:23 - CONCLUSION: 1. Severe abdomino-pelvic ascites. 2. Steatosis of the liver. 3. Right inguinal hernia. Cliff Lugo MD (Jayla Robins) Assessment and Plan Problem List: (1) Acute kidney injury ICD Codes: N17.9 - Acute kidney failure, unspecified Status: Acute Plan: He has normal renal function at baseline BOBBI likely due to sepsis syndrome and decreased renal perfusion with hypotension His renal function has stabilized, although he is not making much urine Change IVF to contain bicarbonate Replace potassium and other electrolytes as needed Imaging negative for obstruction He has firm abdomen, s/p 4 liter removal during paracentesis, may have suffered renal injury due to increased pressure Repeat labs in AM. May need dialysis if urine output does not improve He may also have hepatorenal syndrome, although that is a diagnosis of exclusion Avoid nephrotoxic agents prognosis is guarded. (2) Severe sepsis ICD Codes: A41.9 - Sepsis, unspecified organism; R65.20 - Severe sepsis without septic shock Status: Acute Plan: Blood culutres negative Being treated for pneumonia and UTI Currently on Zosyn, micafungin, Zithromax; he was given Rocephin. Monitor clinically, continue supportive care, vent management per protocol. (3) Alcohol abuse ICD Codes: F10.10 - Alcohol abuse Status: Chronic Plan: Withdrawal protocol as ordered (4) Hypokalemia ICD Codes: E87.6 - Hypokalemia Plan: Continue to replace Follow labs (5) Metabolic acidosis ICD Codes: E87.2 - Acidosis Plan: Due to reduction in GFR He reportedly does not have diarrhea Continue bicarb gtt (Jayla Robins) Assessment and Plan patient was seen and examined. BOBBI could be due to sepsis, ATN. Also possible is increased renal vein pressure due to tense ascites. He was subjected to paracentesis, but ascites may have reaccumulated. Recommend albumin infusion and paracentesis if he has significant ascites. On Vancomycin, Zosyn, micafungin and Zosyn. ID following. Carefully monitor Vancomycin dosing. Prognosis is guarded. (Robert Lane MD) Jayla Robins Apr 28, 2017 14:[address] MD Apr 29, 2017 07:42
[2017-04-28] MEDS: VASOPRESSIN INJ 40 UNITS in DEXTROSE 5% IN WATER 100ML INJ 98 ML IV SCH ×2 (14:57)
[2017-04-28] MEDS ORDERED: SODIUM CHLORIDE IV SCH (16:00)
[2017-04-28] MEDS ORDERED: [UNRECOGNIZED DRUG - OTHER] IV SCH (16:00)
[2017-04-28] MEDS ORDERED: SODIUM BICARB IV SCH (16:00)
[2017-04-28] MEDS: SODIUM CHLORIDE 23.4% INJ 38.5 MEQ, SODIUM BICARBONATE 8.4% INJ 100 MEQ in WATER STERIL... IV SCH (17:03)
--- NOTE | 2017-04-28 17:28 | HHI.IDPN ---
Subjective Subjective Remarks pt is on more pressors, now up11 mcgs of levaphed and vasopressine added remains on vent hypothermic on warming blanket T min 93 Antibiotics zosyn azithro Allergies: Coded Allergies: codeine (Unverified Allergy, Severe, N/V, 04/26/17) propoxyphene (Unverified Allergy, Severe, HIVES, 04/26/17) Objective . Vital Signs Date Time Temp Pulse Resp B/P (MAP) Pulse Ox O2 Delivery O2 Flow Rate FiO2 04/28/17 16:17 100 35 04/28/17 16:00 35 04/28/17 16:00 98.6 84 16 92/58 (69) 99 04/28/17 16:00 84 04/28/17 16:00 84 92/58 04/28/17 15:26 85 109/66 04/28/17 14:57 86 111/64 04/28/17 14:00 87 04/28/17 12:00 98.2 92 15 95/65 (75) 99 04/28/17 12:00 35 04/28/17 12:00 93 04/28/17 11:12 91 103/55 04/28/17 10:00 92 04/28/17 09:27 93 78/55 04/28/17 09:22 100 35 04/28/17 08:00 97.7 90 15 82/53 (63) 100 04/28/17 08:00 40 04/28/17 08:00 90 04/28/17 07:49 100 40 04/28/17 06:12 92 82/51 04/28/17 06:00 91 04/28/17 04:13 100 40 04/28/17 04:00 91 04/28/17 04:00 98.1 91 14 90/57 (68) 100 04/28/17 04:00 40 04/28/17 03:00 90 89/58 04/28/17 02:00 91 04/28/17 02:00 90 87/50 04/28/17 01:21 91 83/55 04/28/17 01:05 100 40 04/28/17 00:09 90 87/55 04/28/17 00:00 97.0 90 16 87/55 (66) 100 04/28/17 00:00 90 04/28/17 00:00 40 04/27/17 23:00 90 89/59 04/27/17 22:10 89 93/54 04/27/17 22:00 87 04/27/17 22:00 87 77/51 04/27/17 20:00 94.5 89 15 90/63 (72) 100 04/27/17 20:00 40 04/27/17 20:00 89 04/27/17 19:25 100 40 04/27/17 19:10 89 94/58 04/27/17 19:00 232 89/54 04/27/17 18:00 87 04/27/17 18:00 94 94/58 04/27/17 17:50 93.4 241 15 84/51 (62) 100 04/27/17 17:40 93.4 229 17 86/50 (62) 100 04/27/17 17:30 93.6 90 18 96/57 (70) 100 04/27/17 17:30 93.6 90 18 96/57 (70) 100 04/27/17 17:30 90 96/57 04/27/17 17:20 93.6 124 15 87/52 (64) 100 04/27/17 17:19 93.6 219 16 84/53 (63) 100 04/28/17 04/28/17 04/29/17 15:00 23:00 07:00 Intake Total 1700 ml 495 ml Balance 1700 ml 495 ml Intake IV Total 1700 ml 495 ml . Laboratory Tests Test 04/26/17 19:50 04/27/17 05:20 04/27/17 14:25 04/28/17 04:14 White Blood Count 21.6 TH/MM3 25.4 TH/MM3 23.4 TH/MM3 21.1 TH/MM3 Red Blood Count 3.58 MIL/MM3 3.90 MIL/MM3 3.19 MIL/MM3 3.39 MIL/MM3 Hemoglobin 10.1 GM/DL 11.6 GM/DL 9.4 GM/DL 9.7 GM/DL Hematocrit 32.0 % 35.7 % 28.8 % 30.6 % Mean Corpuscular Volume 89.4 FL 91.5 FL 90.3 FL 90.2 FL Mean Corpuscular Hemoglobin 28.2 PG 29.8 PG 29.3 PG 28.6 PG Mean Corpuscular Hemoglobin Concent 31.6 % 32.6 % 32.5 % 31.7 % Red Cell Distribution Width 13.5 % 13.8 % 13.6 % 13.8 % Platelet Count 208 TH/MM3 184 TH/MM3 166 TH/MM3 146 TH/MM3 Mean Platelet Volume 9.5 FL 9.7 FL 9.3 FL 9.4 FL Neutrophils (%) (Auto) 80.3 % 83.9 % 84.8 % 79.8 % Lymphocytes (%) (Auto) 11.0 % 8.4 % 8.3 % 11.1 % Monocytes (%) (Auto) 7.0 % 6.6 % 6.2 % 6.2 % Eosinophils (%) (Auto) 1.0 % 0.5 % 0.4 % 1.9 % Basophils (%) (Auto) 0.7 % 0.6 % 0.3 % 1.0 % Neutrophils # (Auto) 17.4 TH/MM3 21.3 TH/MM3 19.8 TH/MM3 16.8 TH/MM3 Lymphocytes # (Auto) 2.4 TH/MM3 2.1 TH/MM3 1.9 TH/MM3 2.3 TH/MM3 Monocytes # (Auto) 1.5 TH/MM3 1.7 TH/MM3 1.5 TH/MM3 1.3 TH/MM3 Eosinophils # (Auto) 0.2 TH/MM3 0.1 TH/MM3 0.1 TH/MM3 0.4 TH/MM3 Basophils # (Auto) 0.2 TH/MM3 0.2 TH/MM3 0.1 TH/MM3 0.2 TH/MM3 CBC Comment DIFF FINAL DIFF FINAL DIFF FINAL DIFF FINAL Differential Comment Laboratory Tests Test 04/26/17 19:50 04/26/17 22:52 04/27/17 05:20 04/27/17 08:37 Blood Urea Nitrogen 38 MG/DL 36 MG/DL Creatinine 2.51 MG/DL 2.32 MG/DL Random Glucose 106 MG/DL 98 MG/DL Total Protein 7.2 GM/DL 7.1 GM/DL Albumin 0.9 GM/DL 1.0 GM/DL Calcium Level 7.0 MG/DL 6.8 MG/DL Alkaline Phosphatase 188 U/L 196 U/L Aspartate Amino Transf (AST/SGOT) 121 U/L 127 U/L Alanine Aminotransferase (ALT/SGPT) 31 U/L 38 U/L Total Bilirubin 2.9 MG/DL 2.8 MG/DL Sodium Level 135 MEQ/L 138 MEQ/L Potassium Level 3.6 MEQ/L 2.9 MEQ/L Chloride Level 102 MEQ/L 107 MEQ/L Carbon Dioxide Level 19.2 MEQ/L 17.5 MEQ/L Anion Gap 14 MEQ/L 14 MEQ/L Estimat Glomerular Filtration Rate 26 ML/MIN 29 ML/MIN Lactic Acid Level 2.4 mmol/L 2.5 mmol/L 3.0 mmol/L 3.6 mmol/L Protein Corrected Calcium 7.0 MG/DL 6.8 MG/DL Ammonia 54 MCMOL/L Lipase 22 U/L Test 04/27/17 10:55 04/27/17 14:25 04/28/17 04:14 04/28/17 07:30 Ammonia 57 MCMOL/L 77 MCMOL/L Blood Urea Nitrogen 35 MG/DL 36 MG/DL Creatinine 2.32 MG/DL 2.34 MG/DL Random Glucose 154 MG/DL 152 MG/DL Total Protein 6.1 GM/DL 6.4 GM/DL Calcium Level 5.9 MG/DL 6.9 MG/DL Sodium Level 144 MEQ/L 143 MEQ/L Potassium Level 3.1 MEQ/L 2.2 MEQ/L Chloride Level 113 MEQ/L 113 MEQ/L Carbon Dioxide Level 19.0 MEQ/L 17.0 MEQ/L Anion Gap 12 MEQ/L 13 MEQ/L Estimat Glomerular Filtration Rate 29 ML/MIN 28 ML/MIN Lactic Acid Level 3.6 mmol/L 2.8 mmol/L Protein Corrected Calcium 6.3 MG/DL 7.3 MG/DL Albumin 1.1 GM/DL Alkaline Phosphatase 158 U/L Aspartate Amino Transf (AST/SGOT) 126 U/L Alanine Aminotransferase (ALT/SGPT) 33 U/L Total Bilirubin 2.4 MG/DL Phosphorus Level 3.0 MG/DL Magnesium Level 1.5 MG/DL Test 04/28/17 13:45 Potassium Level 3.0 MEQ/L Microbiology Date/Time Source Procedure Growth Status 04/26/17 19:50 Blood Peripheral Aerobic Blood Culture - Preliminary NO GROWTH IN 2 DAYS Resulted 04/26/17 19:50 Blood Peripheral Anaerobic Blood Culture - Preliminary NO GROWTH IN 2 DAYS Resulted 04/26/17 19:45 Blood Peripheral Aerobic Blood Culture - Preliminary NO GROWTH IN 2 DAYS Resulted 04/26/17 19:45 Blood Peripheral Anaerobic Blood Culture - Preliminary NO GROWTH IN 2 DAYS Resulted 04/27/17 16:00 Fluid Peritoneal Fluid Gram Stain - Final Resulted 04/27/17 16:00 Fluid Peritoneal Fluid Body Fluid Culture - Preliminary NO GROWTH IN 24 HOURS. Resulted 04/26/17 20:10 Urine Random Urine Urine Culture - Final Escherichia Coli Complete Imaging Last Impressions Paracentesis 04/27/17 1452 Signed Impressions: Service Date/Time: Thursday, April 27, 2017 15:51 - CONCLUSION: 1. One complicated CT-guided paracentesis. 2. Profound hepatic steatosis. Wallace Cordoba MD Head CT 04/27/17 0000 Signed Impressions: Service Date/Time: Thursday, April 27, 2017 15:44 - CONCLUSION: Diffuse atrophy is present. Areas of encephalomalacia involving the right temporal tip and the left orbitofrontal cortices. No evidence of acute hemorrhage or edema Jesus Duncan MD Chest X-Ray 04/27/17 0000 Signed Impressions: Service Date/Time: Thursday, April 27, 2017 10:38 - CONCLUSION: 1. ETT and right IJ central line in good position. No pneumothorax. 2. Mild left lung base airspace disease, likely atelectasis. 3. Remainder the exam is unchanged. Wallace Cordoba MD Abdomen/Pelvis CT 04/26/17 1724 Signed Impressions: Service Date/Time: Wednesday, April 26, 2017 21:23 - CONCLUSION: 1. Severe abdomino-pelvic ascites. 2. Steatosis of the liver. 3. Right inguinal hernia. Cliff Lugo MD Physical Exam CONSTITUTIONAL/GENERAL: This is an adequately nourished patient, in no apparent distress. TUBES/LINES/DRAINS: SKIN: No jaundice, rashes, or lesions. Skin temperature appropriate. Not diaphoretic. EYES: Pupils equal and round and reactive. Extraocular motions intact. No scleral icterus. No injection or drainage. Fundi not examined. CARDIOVASCULAR: Regular rate and rhythm without murmurs, gallops, or rubs. No JVD. Peripheral pulses symmetric. RESPIRATORY/CHEST: Symmetric, unlabored respirations. Clear to auscultation. Breath sounds equal bilaterally. GASTROINTESTINAL: Abdomen soft, no reaction to palpation, distended. No hepato- splenomegaly, or palpable masses. No guarding. Bowel sounds present. GENITOURINARY: Without palpable bladder distension. Castellano catheter in place with small amount of tea coloured urine MUSCULOSKELETAL: Extremities without clubbing, cyanosis, or edema. NEUROLOGICAL: Unresponsive PSYCHIATRIC: unable to assess Assessment & Plan Remarks Sepsis, shock critically ill, still unstable On pressors ARF UTI, Gram negative umu Ascitis, r/o SBP Acute VDRF, PNA vs ARDS (more likely) - cont zosyn cont muicafungin - cont azithro for now - fu P urine and peritoneal fluid culture fu blood clx and cell count of peritoenel fluid will redose vanco vanco level random with am labs Eda Hodge MD Apr 28, 2017 17:28
[2017-04-28] MEDS ORDERED: VANCOMYCIN INJ 1,000 MG in SODIUM CHLOR 0.9% 250 ML INJ 250 ML IV ONE (18:00)
[2017-04-28] MEDS: fentaNYL DRIP 250 ML IV PRN (18:40)
[2017-04-28] MEDS: MICAFUNGIN INJ 150 MG in SODIUM CHLORIDE 0.9% INJ 100 ML IV SCH (21:45)
[2017-04-28] MEDS: RIFAXIMIN 550 MG TAB PO SCH (21:45)
[2017-04-29] VITALS (19 sets, daily range): BP systolic 80–126; BP diastolic 53–79; PULSE 79–96; RESP 14–20; TEMP 97.5–98.8; O2SAT 90–100
[2017-04-29] MEDS: FAMOTIDINE 20 MG/2 ML VIAL IV PUSH SCH ×2 (00:28→13:15)
[2017-04-29] MEDS: PIPERACIL-TAZO 3.375 GM PREMIX 50 ML IV SCH ×3 (00:29→17:06)
[2017-04-29] MEDS: HYDROCORTISONE SOD SUCCINATE 100 MG VIAL IV PUSH SCH ×3 (00:29→20:26)
[2017-04-29] MEDS: NOREPINEPHRINE 4 MG/D5W 250 ML IV PRN ×2 (03:14→17:24)
[2017-04-29] MEDS: RESP: ALBUTEROL 2.5 MG/IPRATROPIUM 0.5 MG NEB (SCH) NEB ×5 (03:58→19:51)
[2017-04-29] MEDS: INSULIN NovoLIN REGULAR SUPPLEMENTAL SCALE SQ SCH ×6 (04:00→20:00)
[2017-04-29] MEDS: CHLORHEXIDINE GLUCONATE 2 % 1 PACK (2 CLOTHS)(taper/protocol) TOPICAL SCH (04:00)
[2017-04-29 04:39] LABS: AUTOMATED NEUTROPHIL # 21.9 TH/MM3 (1.8-7.7); BASOPHIL # 0.1 TH/MM3 (0-0.2); BASOPHIL % 0.3 % (0.0-2.0); HEMATOCRIT 29.2 % (39.0-51.0); HEMO FLAGS DIFF FINAL; LYMPH % 6.6 % (9.0-44.0); LYMPHOCYTE # 1.6 TH/MM3 (1.0-4.8); MEAN CELL VOLUME 89.9 FL (80.0-100.0); MEAN CORPUSCULAR HGB CONC 32.2 % (32.0-36.0); NEUT % 89.1 % (16.0-70.0); PLATELET COUNT 107 TH/MM3 (150-450); RED BLOOD COUNT 3.25 MIL/MM3 (4.50-5.90); RED CELL DISTRIBUTION WIDTH 13.8 % (11.6-17.2); WHITE BLOOD COUNT 24.6 TH/MM3 (4.0-11.0)
[2017-04-29] MEDS: ALBUMIN 5% INJ 250 ML IV SCH (04:46)
[2017-04-29 05:07] LABS: BICARBONATE 18.9 MEQ/L (21.0-32.0); POTASSIUM 3.3 MEQ/L (3.5-5.1); TOTAL BILIRUBIN ADULT 3.1 MG/DL (0.2-1.0)
[2017-04-29 05:10] LABS: CALCIUM-PROTEIN CORRECTED 7.1 MG/DL (8.5-10.1)
[2017-04-29] MEDS: POTASSIUM CHLOR 40 MEQ PREMIX 100 ML IV SCH ×2 (05:55→10:00)
[2017-04-29] MEDS: SODIUM CHLORIDE 23.4% INJ 38.5 MEQ, SODIUM BICARBONATE 8.4% INJ 100 MEQ in WATER STERIL... IV SCH (05:56)
[2017-04-29] MEDS ORDERED: CALCIUM GLUCONATE INJ 2 GM in SODIUM CHLORIDE 0.9% INJ 100 ML IV SCH (06:00)
[2017-04-29] MEDS: VASOPRESSIN INJ 40 UNITS in DEXTROSE 5% IN WATER 100ML INJ 98 ML IV SCH ×4 (06:06→19:05)
--- NOTE | 2017-04-29 07:06 | HHI.CCPN ---
Subjective Remarks/Hospital Course Patient is a 61-year-old male with past medical history of EtOH abuse, chronic obstructive pulmonary disease, seizure disorder, cerebrovascular accident, who presented to [facility] emergency department earlier this morning via EMS, under supposedly a Dwyer acted. The patient told the staffing associate of the Hotel where he is staying that he wants to commit suicide. The police were called and the patient was brought in to the hospital. On arrival to the emergency department he was found to have leukocytosis with a WBC of 21.6 and was in renal failure with creatinine of 2.51. The patient also had mild lactic acidemia with elevated lactic acid level 2.4 and elevated AST: 121 with total bilirubin 2.9. He had an ABG done this morning on 4 liters oxygen was which showed a pH of 7.34, CO2 28 and pAO2 135, bicarb 15, saturation 96%. Chest x-ray In the ER showed mild interstitial past is in the upper left lung. He also had CT abdomen and pelvis done which showed severe ascites along with steatosis of the liver and right inguinal hernia. [facility] was [facility]. Critical care medicine was consulted for critical care management. When seen in ICU the patient was lethargic, unresponsive. He was subsequently intubated and placed on mechanical ventilation for airway protection. In the ICU the patient was hypotensive with systolic blood pressure in the 90s, A right IJ emergent central line was placed. 04/28 Patient is intubated off sedation started on Levophed yesterday 12 mics. s /p CT guided paracentesis with removal 4L. 04/29 Patient emains intubated and sedated with Fentanyl drip. Levophed down 7 mics, vasopressin added yesterday. Afebrile. On Bicarb drip. Objective Vital Signs Date Time Temp Pulse Resp B/P (MAP) Pulse Ox O2 Delivery O2 Flow Rate FiO2 04/29/17 06:30 87 98/61 04/29/17 04:00 35 04/29/17 04:00 98.3 14 96 04/27/17 07:36 Nasal Cannula 4.00 Intake and Output 04/29/17 04/29/17 04/30/17 08:00 16:00 00:00 Intake Total 2088 ml Output Total 600 ml Balance 1488 ml Result Diagram: 04/29/17 0415 04/29/17 0415 Other Results Laboratory Tests Test 04/28/17 07:30 04/28/17 13:45 04/28/17 21:20 04/29/17 04:15 Lactic Acid Level 2.8 mmol/L Phosphorus Level 3.0 MG/DL Magnesium Level 1.5 MG/DL Ammonia 77 MCMOL/L 38 MCMOL/L Potassium Level 3.0 MEQ/L 3.5 MEQ/L 3.3 MEQ/L White Blood Count 24.6 TH/MM3 Red Blood Count 3.25 MIL/MM3 Hemoglobin 9.4 GM/DL Hematocrit 29.2 % Mean Corpuscular Volume 89.9 FL Mean Corpuscular Hemoglobin 29.0 PG Mean Corpuscular Hemoglobin Concent 32.2 % Red Cell Distribution Width 13.8 % Platelet Count 107 TH/MM3 Mean Platelet Volume 9.4 FL Neutrophils (%) (Auto) 89.1 % Lymphocytes (%) (Auto) 6.6 % Monocytes (%) (Auto) 4.0 % Eosinophils (%) (Auto) 0.0 % Basophils (%) (Auto) 0.3 % Neutrophils # (Auto) 21.9 TH/MM3 Lymphocytes # (Auto) 1.6 TH/MM3 Monocytes # (Auto) 1.0 TH/MM3 Eosinophils # (Auto) 0.0 TH/MM3 Basophils # (Auto) 0.1 TH/MM3 CBC Comment DIFF FINAL Differential Comment Blood Urea Nitrogen 31 MG/DL Creatinine 1.74 MG/DL Random Glucose 207 MG/DL Total Protein 6.1 GM/DL Albumin 1.4 GM/DL Calcium Level 6.6 MG/DL Alkaline Phosphatase 148 U/L Aspartate Amino Transf (AST/SGOT) 119 U/L Alanine Aminotransferase (ALT/SGPT) 38 U/L Total Bilirubin 3.1 MG/DL Sodium Level 144 MEQ/L Chloride Level 115 MEQ/L Carbon Dioxide Level 18.9 MEQ/L Anion Gap 10 MEQ/L Estimat Glomerular Filtration Rate 40 ML/MIN Protein Corrected Calcium 7.1 MG/DL Imaging Last Impressions Paracentesis 04/27/17 1452 Signed Impressions: Service Date/Time: Thursday, April 27, 2017 15:51 - CONCLUSION: 1. One complicated CT-guided paracentesis. 2. Profound hepatic steatosis. Wallace Cordoba MD Head CT 04/27/17 0000 Signed Impressions: Service Date/Time: Thursday, April 27, 2017 15:44 - CONCLUSION: Diffuse atrophy is present. Areas of encephalomalacia involving the right temporal tip and the left orbitofrontal cortices. No evidence of acute hemorrhage or edema Jesus Duncan MD Chest X-Ray 04/27/17 0000 Signed Impressions: Service Date/Time: Thursday, April 27, 2017 10:38 - CONCLUSION: 1. ETT and right IJ central line in good position. No pneumothorax. 2. Mild left lung base airspace disease, likely atelectasis. 3. Remainder the exam is unchanged. Wallace Cordoba MD Abdomen/Pelvis CT 04/26/17 1724 Signed Impressions: Service Date/Time: Wednesday, April 26, 2017 21:23 - CONCLUSION: 1. Severe abdomino-pelvic ascites. 2. Steatosis of the liver. 3. Right inguinal hernia. Cliff Lugo MD Objective Remarks GENERAL: Patient is 61 yo critically ill intubated and on Levophed SKIN: Warm and dry. HEAD: Normocephalic. EYES: No scleral icterus. No injection or drainage. NECK: Supple, trachea midline. No JVD or lymphadenopathy. CARDIOVASCULAR: Regular rate and rhythm without murmurs, gallops, or rubs. RESPIRATORY: Breath sounds equal bilaterally. No accessory muscle use. GASTROINTESTINAL: non-tender, distended. MUSCULOSKELETAL: No cyanosis, or edema. Neuro: Intubated A/P Assessment and Plan 1. VDRF 2. Encephalopathy. 3. Leukocytosis 4. Ascites rule out SBP 5. Acute kidney injury. 6. Urinary tract infection. 7. Hypokalemia. 8. Lactic acidemia 9. Elevated AST. 10. ETOH abuse. 11. History of cerebrovascular accident and seizure disorder. 12. History of chronic obstructive pulmonary disease. Plan Neuro: fentanyl infusion for sedation. Monitor neuro status. Daily sedation vacation. 04/27: Mild- mod slowing. No epileptiform features. 04/27: CT brain: No acute findings On Lactulose 30ml QID, Rifaximin 550mg BID, monitor Ammonia level ( trending down) On Thiamine, MVI, folic acid Pulm: Continue with vent support and maintain sats above 92%. Bronchodilators, ICU vent bundle. CV: On Levophed /Vasopressin to maintain MAP > 65 mmHg. Serial lactic acid monitoring. Lactic acid 2.8. For 2D echo Decrease Hydrocortisone- HC 50mg IV Q12 : Monitor renal function Is and Os and avoid nephrotoxins. Cr: 1.74 today from: 2.34. d/c bicarb drip. Diurese with Bumex 1mg x1 and place on Bumex drip 0.5mg/hr ( fluid overload) discussed with Dr. Lane. CT scan of the abdomen and pelvis showed no evidence of hydronephrosis, masses or stones. GI: On tube feeds- Nepro advance to goal rate 40 ml/hr, on Pepcid 10 mg IV q. 12 for GI prophylaxis Monitor LFT's, s/p CT guided paracentesis with removal 4L. Follow up on fluid cx- NGTD ID: Continue with abx per ID ( On Zosyn, Micafungin, Vanco, Azithromycin) monitor for signs of infections Follow up on blood cultures Urine culture: E.coli Heme: Monitor CBC GI prophylaxis with Pepcid 10 mg IV q. 12 and DVT prophylaxis with SCDs. Endo: SSI for glucemic control Lines: Right IJ central line placed 04/27 Patient is critically ill with sepsis, resp failure , renal failure, encephalopathy and UTI. Palliative care consult to asses with goals of care. CCT 30 mins Sonny Khan MD Apr 29, 2017 07:06
[2017-04-29] MEDS: SODIUM CHLORIDE 0.9% FLUSH 10 ML FLUSH IV FLUSH SCH ×2 (09:59→20:27)
[2017-04-29] MEDS: RIFAXIMIN 550 MG TAB PO SCH ×2 (10:00→20:27)
[2017-04-29] MEDS: MULTIVITAMIN TAB PO SCH (10:00)
[2017-04-29] MEDS: AZITHROMYCIN 250 MG TAB PO SCH (10:00)
[2017-04-29] MEDS: FOLIC ACID 1 MG TAB PO SCH (10:00)
[2017-04-29] MEDS: DOCUSATE SODIUM 50 MG/SENNA 8.6 MG TAB PO SCH ×2 (10:00→20:27)
[2017-04-29] MEDS: LACTULOSE SYRUP 20 GM/30 ML CUP PO SCH ×4 (10:01→20:27)
[2017-04-29] MEDS: CALCIUM CARBONATE 1.25 GM (CA 500 MG) TAB PO SCH ×2 (10:01→20:27)
--- NOTE | 2017-04-29 12:45 | RADRPT ---
EXAM DATE/TIME: 04/29/2017 12:26 [facility] COMPARISON: CHEST SINGLE AP, April 27, 2017, 10:38. INDICATIONS : Ventilator dependent respiratory failure. MEDICAL HISTORY : Cardiovascular disease. Cerebrovascular disease. renal disease. Seizures. SURGICAL HISTORY : None. ENCOUNTER: Subsequent ACUITY: 3 days PAIN SCORE: Non-responsive. LOCATION: Bilateral chest FINDINGS: Mild image degradation due to patient motion. Endotracheal tube tip 2 cm above the michael. Right in ternal jugular catheter projects over the proximal superior vena cava. There is a changed appearance the lungs with diffuse acinar densities in the mid and upper lungs bilaterally. The heart is normal size. Both hemidiaphragms are well delineated. There is questionable angulation of the cortex of t he lateral left 5th and 6th ribs. Stable deformity of both clavicles. CONCLUSION: Interval development of bilateral mid and upper lung acinar infiltrates, moderate in severity. Possi ble acute fractures of the lateral left 5th and 6th ribs. Cliff Lugo MD on April 29, 2017 at 12:41 Board Certified Radiologist. This report was verified electronically.
[2017-04-29] MEDS ORDERED: BUMETANIDE INJ 1 MG/4 ML VIAL IV PUSH ONE ×2 (13:00→20:00)
--- NOTE | 2017-04-29 13:02 | HHI.IDPN ---
Subjective Subjective Remarks pressors off remains on vent normothermic no ETT secretions on 100% FiO2 Antibiotics zosyn azithro Allergies: Coded Allergies: codeine (Unverified Allergy, Severe, N/V, 04/26/17) propoxyphene (Unverified Allergy, Severe, HIVES, 04/26/17) Objective . Vital Signs Date Time Temp Pulse Resp B/P (MAP) Pulse Ox O2 Delivery O2 Flow Rate FiO2 04/29/17 12:01 97 70 04/29/17 10:15 91 129/75 04/29/17 10:00 87 04/29/17 08:01 94 70 04/29/17 08:01 90 Ventilator 70 04/29/17 08:00 84 04/29/17 08:00 70 04/29/17 08:00 98.8 80 116/72 (87) 93 04/29/17 06:30 87 98/61 04/29/17 06:06 92 103/69 04/29/17 06:00 88 04/29/17 05:40 102 127/73 04/29/17 05:30 97 127/73 04/29/17 04:00 35 04/29/17 04:00 88 04/29/17 04:00 98.3 88 14 124/79 (94) 96 04/29/17 03:59 96 35 04/29/17 03:14 80 125/75 04/29/17 02:00 79 04/29/17 01:04 97 35 04/29/17 00:00 35 04/29/17 00:00 82 04/29/17 00:00 98.8 82 20 126/76 (93) 100 04/28/17 23:15 82 81/51 04/28/17 23:00 82 66/49 04/28/17 22:00 87 04/28/17 22:00 87 90/53 04/28/17 20:00 98.1 94 20 113/59 (77) 96 04/28/17 20:00 35 04/28/17 20:00 94 04/28/17 19:36 96 35 04/28/17 19:00 86 113/59 04/28/17 19:00 94 113/59 04/28/17 18:52 90 119/64 04/28/17 18:25 90 103/56 04/28/17 18:00 86 04/28/17 17:42 93 111/62 04/28/17 16:17 100 35 04/28/17 16:00 35 04/28/17 16:00 98.6 84 16 92/58 (69) 99 04/28/17 16:00 84 04/28/17 16:00 84 92/58 04/28/17 15:26 85 109/66 04/28/17 14:57 86 111/64 04/28/17 14:00 87 04/29/17 04/29/17 04/30/17 15:00 23:00 07:00 Intake Total 220 ml Balance 220 ml Intake IV Total 220 ml . Laboratory Tests Test 04/27/17 14:25 04/28/17 04:14 04/29/17 04:15 White Blood Count 23.4 TH/MM3 21.1 TH/MM3 24.6 TH/MM3 Red Blood Count 3.19 MIL/MM3 3.39 MIL/MM3 3.25 MIL/MM3 Hemoglobin 9.4 GM/DL 9.7 GM/DL 9.4 GM/DL Hematocrit 28.8 % 30.6 % 29.2 % Mean Corpuscular Volume 90.3 FL 90.2 FL 89.9 FL Mean Corpuscular Hemoglobin 29.3 PG 28.6 PG 29.0 PG Mean Corpuscular Hemoglobin Concent 32.5 % 31.7 % 32.2 % Red Cell Distribution Width 13.6 % 13.8 % 13.8 % Platelet Count 166 TH/MM3 146 TH/MM3 107 TH/MM3 Mean Platelet Volume 9.3 FL 9.4 FL 9.4 FL Neutrophils (%) (Auto) 84.8 % 79.8 % 89.1 % Lymphocytes (%) (Auto) 8.3 % 11.1 % 6.6 % Monocytes (%) (Auto) 6.2 % 6.2 % 4.0 % Eosinophils (%) (Auto) 0.4 % 1.9 % 0.0 % Basophils (%) (Auto) 0.3 % 1.0 % 0.3 % Neutrophils # (Auto) 19.8 TH/MM3 16.8 TH/MM3 21.9 TH/MM3 Lymphocytes # (Auto) 1.9 TH/MM3 2.3 TH/MM3 1.6 TH/MM3 Monocytes # (Auto) 1.5 TH/MM3 1.3 TH/MM3 1.0 TH/MM3 Eosinophils # (Auto) 0.1 TH/MM3 0.4 TH/MM3 0.0 TH/MM3 Basophils # (Auto) 0.1 TH/MM3 0.2 TH/MM3 0.1 TH/MM3 CBC Comment DIFF FINAL DIFF FINAL DIFF FINAL Differential Comment Laboratory Tests Test 04/27/17 14:25 04/28/17 04:14 04/28/17 07:30 04/28/17 13:45 Blood Urea Nitrogen 35 MG/DL 36 MG/DL Creatinine 2.32 MG/DL 2.34 MG/DL Random Glucose 154 MG/DL 152 MG/DL Total Protein 6.1 GM/DL 6.4 GM/DL Calcium Level 5.9 MG/DL 6.9 MG/DL Sodium Level 144 MEQ/L 143 MEQ/L Potassium Level 3.1 MEQ/L 2.2 MEQ/L 3.0 MEQ/L Chloride Level 113 MEQ/L 113 MEQ/L Carbon Dioxide Level 19.0 MEQ/L 17.0 MEQ/L Anion Gap 12 MEQ/L 13 MEQ/L Estimat Glomerular Filtration Rate 29 ML/MIN 28 ML/MIN Lactic Acid Level 3.6 mmol/L 2.8 mmol/L Protein Corrected Calcium 6.3 MG/DL 7.3 MG/DL Albumin 1.1 GM/DL Alkaline Phosphatase 158 U/L Aspartate Amino Transf (AST/SGOT) 126 U/L Alanine Aminotransferase (ALT/SGPT) 33 U/L Total Bilirubin 2.4 MG/DL Phosphorus Level 3.0 MG/DL Magnesium Level 1.5 MG/DL Ammonia 77 MCMOL/L Test 04/28/17 21:20 04/29/17 04:15 Potassium Level 3.5 MEQ/L 3.3 MEQ/L Blood Urea Nitrogen 31 MG/DL Creatinine 1.74 MG/DL Random Glucose 207 MG/DL Total Protein 6.1 GM/DL Albumin 1.4 GM/DL Calcium Level 6.6 MG/DL Alkaline Phosphatase 148 U/L Aspartate Amino Transf (AST/SGOT) 119 U/L Alanine Aminotransferase (ALT/SGPT) 38 U/L Total Bilirubin 3.1 MG/DL Sodium Level 144 MEQ/L Chloride Level 115 MEQ/L Carbon Dioxide Level 18.9 MEQ/L Anion Gap 10 MEQ/L Estimat Glomerular Filtration Rate 40 ML/MIN Protein Corrected Calcium 7.1 MG/DL Ammonia 38 MCMOL/L Microbiology Date/Time Source Procedure Growth Status 04/26/17 19:50 Blood Peripheral Aerobic Blood Culture - Preliminary NO GROWTH IN 3 DAYS Resulted 04/26/17 19:50 Blood Peripheral Anaerobic Blood Culture - Preliminary NO GROWTH IN 3 DAYS Resulted 04/26/17 19:45 Blood Peripheral Aerobic Blood Culture - Preliminary NO GROWTH IN 3 DAYS Resulted 04/26/17 19:45 Blood Peripheral Anaerobic Blood Culture - Preliminary NO GROWTH IN 3 DAYS Resulted 04/27/17 16:00 Fluid Peritoneal Fluid Gram Stain - Final Resulted 04/27/17 16:00 Fluid Peritoneal Fluid Body Fluid Culture - Preliminary NO GROWTH IN 48 HOURS. Resulted 04/26/17 20:10 Urine Random Urine Urine Culture - Final Escherichia Coli Complete Imaging Last Impressions Paracentesis 04/27/17 1452 Signed Impressions: Service Date/Time: Thursday, April 27, 2017 15:51 - CONCLUSION: 1. One complicated CT-guided paracentesis. 2. Profound hepatic steatosis. Wallace Cordoba MD Head CT 04/27/17 0000 Signed Impressions: Service Date/Time: Thursday, April 27, 2017 15:44 - CONCLUSION: Diffuse atrophy is present. Areas of encephalomalacia involving the right temporal tip and the left orbitofrontal cortices. No evidence of acute hemorrhage or edema Jesus Duncan MD Chest X-Ray 04/27/17 0000 Signed Impressions: Service Date/Time: Thursday, April 27, 2017 10:38 - CONCLUSION: 1. ETT and right IJ central line in good position. No pneumothorax. 2. Mild left lung base airspace disease, likely atelectasis. 3. Remainder the exam is unchanged. Wallace Cordoba MD Abdomen/Pelvis CT 04/26/17 1724 Signed Impressions: Service Date/Time: Wednesday, April 26, 2017 21:23 - CONCLUSION: 1. Severe abdomino-pelvic ascites. 2. Steatosis of the liver. 3. Right inguinal hernia. Cliff Lugo MD Physical Exam CONSTITUTIONAL/GENERAL: This is an adequately nourished patient, in no apparent distress. TUBES/LINES/DRAINS: SKIN: No jaundice, rashes, or lesions. Skin temperature appropriate. Not diaphoretic. EYES: Pupils equal and round and reactive. Extraocular motions intact. No scleral icterus. No injection or drainage. Fundi not examined. CARDIOVASCULAR: Regular rate and rhythm without murmurs, gallops, or rubs. No JVD. Peripheral pulses symmetric. RESPIRATORY/CHEST: Symmetric, unlabored respirations. Clear to auscultation. Breath sounds equal bilaterally. GASTROINTESTINAL: Abdomen soft, no reaction to palpation, distended. No hepato- splenomegaly, or palpable masses. No guarding. Bowel sounds present. GENITOURINARY: Without palpable bladder distension. Castellano catheter in place with small amount of tea coloured urine MUSCULOSKELETAL: Extremities without clubbing, cyanosis, or edema. NEUROLOGICAL: Unresponsive PSYCHIATRIC: unable to assess Assessment & Plan Remarks Sepsis, shock critically ill, still unstable On pressors ARF UTI, Gram negative umu Ascitis, r/o SBP Acute VDRF, PNA vs ARDS (more likely) SBP clx negative so far, but cell count cw SBP - cont zosyn cont muicafungin - cont azithro for now - fu P urine and peritoneal fluid culture fu blood clx and cell count of peritonial fluid will redose vanco k vanco level random Eda Hodge MD Apr 29, 2017 13:02
--- NOTE | 2017-04-29 13:33 | HHI.NPPN ---
Subjective Interval History remains intubated. Unresponsive. Urine output is marginal, some improvement in creatinine. Requiring 100 % oxygen. Objective Data Data 04/29/17 04/30/17 19:00 07:00 Intake Total 968 ml Balance 968 ml Intake IV Total 968 ml Vital Signs Date Time Temp Pulse Resp B/P (MAP) Pulse Ox O2 Delivery O2 Flow Rate FiO2 04/29/17 13:00 89 125/71 04/29/17 12:01 97 70 04/29/17 10:15 91 129/75 04/29/17 10:00 87 04/29/17 08:01 94 70 04/29/17 08:01 90 Ventilator 70 04/29/17 08:00 84 04/29/17 08:00 70 04/29/17 08:00 98.8 80 116/72 (87) 93 04/29/17 06:30 87 98/61 04/29/17 06:06 92 103/69 04/29/17 06:00 88 04/29/17 05:40 102 127/73 04/29/17 05:30 97 127/73 04/29/17 04:00 35 04/29/17 04:00 88 04/29/17 04:00 98.3 88 14 124/79 (94) 96 04/29/17 03:59 96 35 04/29/17 03:14 80 125/75 04/29/17 02:00 79 04/29/17 01:04 97 35 04/29/17 00:00 35 04/29/17 00:00 82 04/29/17 00:00 98.8 82 20 126/76 (93) 100 04/28/17 23:15 82 81/51 04/28/17 23:00 82 66/49 04/28/17 22:00 87 04/28/17 22:00 87 90/53 04/28/17 20:00 98.1 94 20 113/59 (77) 96 04/28/17 20:00 35 04/28/17 20:00 94 04/28/17 19:36 96 35 04/28/17 19:00 86 113/59 04/28/17 19:00 94 113/59 04/28/17 18:52 90 119/64 04/28/17 18:25 90 103/56 04/28/17 18:00 86 04/28/17 17:42 93 111/62 04/28/17 16:17 100 35 04/28/17 16:00 35 04/28/17 16:00 98.6 84 16 92/58 (69) 99 04/28/17 16:00 84 04/28/17 16:00 84 92/58 04/28/17 15:26 85 109/66 04/28/17 14:57 86 111/64 04/28/17 14:00 87 -: 04/29/17 0415 04/29/17 0415 Physical Exam General Appearance: Malnourished Appearance Remarks unresponsive, on the ventilator. Neck Neck Exam: Neck Supple Pulmonary Resp Exam: Rhonchi Resp Remarks bilateral wheezing and rhonchi Cardiology CV Exam: Regular Gastrointestinal/Abdomen GI Remarks abdomen is distended, appears to have tense ascites. Extremeties Extremities Exam: Dependent Edema Assessment/Plan Problem List: (1) Acute kidney injury ICD Codes: N17.9 - Acute kidney failure, unspecified Status: Acute Plan: BOBBI could be due to sepsis, and ATN. HRS is less likely as he is non oliguric. Increased renal vein pressure due to tense ascites also will have to be considered. Agree with Bumex drip. Prognosis is guarded at this time. Discontinue IVF. Avoid nephrotoxins. (2) Severe sepsis ICD Codes: A41.9 - Sepsis, unspecified organism; R65.20 - Severe sepsis without septic shock Status: Acute Plan: Blood culutres negative Being treated for pneumonia and UTI Currently on Zosyn, micafungin, Zithromax; he was given Rocephin. Monitor clinically, continue supportive care, vent management per protocol. ID following. (3) Alcohol abuse ICD Codes: F10.10 - Alcohol abuse Status: Chronic Plan: Withdrawal protocol as ordered (4) Hypokalemia ICD Codes: E87.6 - Hypokalemia Plan: Continue to replace Follow labs (5) Metabolic acidosis ICD Codes: E87.2 - Acidosis Plan: monitor. He is being given lactulose, resulting in bicarbonate loss. Renal failure also contributing. Robert Lane MD Apr 29, 2017 13:33
[2017-04-29] MEDS ORDERED: BUMETANIDE INJ 100 ML IV SCH (15:00)
[2017-04-29 16:14] LABS: POTASSIUM 4.4 MEQ/L (3.5-5.1)
[2017-04-29] MEDS ORDERED: VANCOMYCIN INJ 1,000 MG in SODIUM CHLOR 0.9% 250 ML INJ 250 ML IV ONE (17:45)
[2017-04-29 19:14] LABS: BLOOD GAS BASE EXCESS -7.3 mmol/L (-2-2); BLOOD GAS CARBOXYHEMOGLOBIN 0.8 % (0-4); BLOOD GAS HCO3 19 mmol/L (22-26); BLOOD GAS METHEMOGLOBIN 1.1 % (0-2); BLOOD GAS O2 HGB SATURATION 84 % (90-100); BLOOD GAS OXYGEN CONTENT 11.8 Vol % (12.0-20.0); BLOOD GAS PCO2 50 mmHg (38-42); BLOOD GAS PO2 67 mmHg (61-120); BLOOD GAS TOTAL HGB 9.9 G/DL (12.0-16.0); CRITICAL VALUE YES; OXYGEN DEVICE VENTILATOR; TEMP CORR TO 98.6
[2017-04-29 19:15] LABS: DRAW SITE RT RADIAL; FIO2 100 %; NUMBER OF ARTERIAL PUNCTURES 2; STAT YES; ULNAR PULSE PRESENT; VENT SETTINGS 400/14/+10
[2017-04-29] MEDS: BUMETANIDE INJ 1 MG/4 ML VIAL IV PUSH SCH (20:26)
[2017-04-29] MEDS: MICAFUNGIN INJ 150 MG in SODIUM CHLORIDE 0.9% INJ 100 ML IV SCH (20:27)
--- NOTE | 2017-04-29 21:13 | RADRPT ---
EXAM DATE/TIME: 04/29/2017 20:30 [facility] COMPARISON: CHEST SINGLE AP, April 29, 2017, 12:26. INDICATIONS : Respiratory Distress MEDICAL HISTORY : Chronic obstructive pulmonary disease. Myocardial infarction. seizures, liver SURGICAL HISTORY : Right ORIF hip ENCOUNTER: Subsequent ACUITY: 3 days PAIN SCORE: Non-responsive. LOCATION: Bilateral chest FINDINGS: A single view of the chest demonstrates endotracheal tube in satisfactory position. Right IJ line in superior vena cava. NG enters stomach. Diffuse bilateral airspace disease similar to April 29 exam from earlier today. Small effusions. No pneumothorax. CONCLUSION: 1. Support apparatus in satisfactory position. Diffuse bilateral airspace disease similar to exam fro m earlier today. Galileo Mead MD on April 29, 2017 at 21:09 Board Certified Radiologist. This report was verified electronically.
[2017-04-30] VITALS (18 sets, daily range): BP systolic 82–94; BP diastolic 52–63; PULSE 92–106; RESP 14; TEMP 96.6–98.4; O2SAT 95–100
[2017-04-30] MEDS: RESP: ALBUTEROL 2.5 MG/IPRATROPIUM 0.5 MG NEB (SCH) NEB ×7 (00:17→23:12)
[2017-04-30] MEDS: FAMOTIDINE 20 MG/2 ML VIAL IV PUSH SCH ×2 (01:12→13:52)
[2017-04-30] MEDS: PIPERACIL-TAZO 3.375 GM PREMIX 50 ML IV SCH ×3 (01:12→17:54)
[2017-04-30] MEDS: INSULIN NovoLIN REGULAR SUPPLEMENTAL SCALE SQ SCH ×6 (04:00→20:00)
[2017-04-30] MEDS: CHLORHEXIDINE GLUCONATE 2 % 1 PACK (2 CLOTHS)(taper/protocol) TOPICAL SCH (04:00)
[2017-04-30] MEDS: BUMETANIDE INJ 1 MG/4 ML VIAL IV PUSH SCH ×3 (04:00→20:58)
[2017-04-30 05:25] LABS: AUTOMATED NEUTROPHIL # 22.3 TH/MM3 (1.8-7.7); BASOPHIL # 0.1 TH/MM3 (0-0.2); BASOPHIL % 0.2 % (0.0-2.0); EOSINOPHIL % 0.1 % (0.0-4.0); HEMATOCRIT 33.6 % (39.0-51.0); LYMPH % 6.6 % (9.0-44.0); LYMPHOCYTE # 1.7 TH/MM3 (1.0-4.8); MEAN CELL VOLUME 91.6 FL (80.0-100.0); MEAN CORPUSCULAR HEMOGLOBIN 28.7 PG (27.0-34.0); MEAN CORPUSCULAR HGB CONC 31.4 % (32.0-36.0); MONO % 4.5 % (0.0-8.0); NEUT % 88.6 % (16.0-70.0); PLATELET COUNT 79 TH/MM3 (150-450); RED BLOOD COUNT 3.67 MIL/MM3 (4.50-5.90); RED CELL DISTRIBUTION WIDTH 14.2 % (11.6-17.2); WHITE BLOOD COUNT 25.1 TH/MM3 (4.0-11.0)
[2017-04-30 05:29] LABS: HEMO FLAGS AUTO DIFF
[2017-04-30 06:00] LABS: BICARBONATE 19.5 MEQ/L (21.0-32.0); CALCIUM-PROTEIN CORRECTED 7.8 MG/DL (8.5-10.1); MAGNESIUM 1.3 MG/DL (1.5-2.5); POTASSIUM 4.1 MEQ/L (3.5-5.1)
[2017-04-30 06:33] LABS: BANDS 5 % (0-6); CORRECTED NUCLEATED RBC 1 /100 WBC (0-0); METAMYELOCYTES 1 % (0-1); NEUTROPHIL # MANUAL DIFF 24.3 TH/MM3 (1.8-7.7); POLYS (SEG NEUTROPHILS) 91 % (16-70); SCAN/DIFF FINAL DIFF MANUAL; WBC DIFF SAMPLE 100
[2017-04-30 06:34] LABS: PLATELET ESTIMATE SMEAR LOW (NORMAL)
[2017-04-30 06:37] LABS: PLATELET MORPHOLOGY NORMAL (NORMAL); POLYCHROMASIA 2.3 % (0.0-1.9)
--- NOTE | 2017-04-30 06:49 | HHI.CCPN ---
Subjective Remarks/Hospital Course Patient is a 61-year-old male with past medical history of EtOH abuse, chronic obstructive pulmonary disease, seizure disorder, cerebrovascular accident, who presented to [facility] emergency department earlier this morning via EMS, under supposedly a [place] acted. The patient told the collar starcher of the [facility] where he is staying that he wants to commit suicide. The police were called and the patient was brought in to the hospital. On arrival to the emergency department he was found to have leukocytosis with a WBC of 21.6 and was in renal failure with creatinine of 2.51. The patient also had mild lactic acidemia with elevated lactic acid level 2.4 and elevated AST: 121 with total bilirubin 2.9. He had an ABG done this morning on 4 liters oxygen was which showed a pH of 7.34, CO2 28 and pAO2 135, bicarb 15, saturation 96%. Chest x-ray In the ER showed mild interstitial past is in the upper left lung. He also had CT abdomen and pelvis done which showed severe ascites along with steatosis of the liver and right inguinal hernia. [facility] and [facility] was transferred to ICU. Critical care medicine was consulted for critical care management. When seen in ICU the patient was lethargic, unresponsive. He was subsequently intubated and placed on mechanical ventilation for airway protection. In the ICU the patient was hypotensive with systolic blood pressure in the 90s, A right IJ emergent central line was placed. 04/28 Patient is intubated off sedation started on Levophed yesterday 12 mics. s /p CT guided paracentesis with removal 4L. 04/29 Patient remains intubated and sedated with Fentanyl drip. Levophed down 7 mics, vasopressin added yesterday. Afebrile. On Bicarb drip. 04/30 Patient remains sedated with Fentanyl and intubated. Required increase FIO2/PEEP overnight given additional Bumex 2mg IV x1. CXR yesterday showed diffuse b/l pulm infiltrates. Levophed down to 5 mics, off Vasopressin. Objective Vital Signs Date Time Temp Pulse Resp B/P (MAP) Pulse Ox O2 Delivery O2 Flow Rate FiO2 04/30/17 06:29 70 04/30/17 06:02 90/61 04/30/17 06:00 95 04/30/17 04:00 100 04/30/17 04:00 97.6 14 04/29/17 08:01 Ventilator 04/27/17 07:36 4.00 Intake and Output 04/30/17 04/30/17 04/30/17 07:59 15:59 23:59 Intake Total 540 ml Output Total 150 ml Balance 390 ml Result Diagram: 04/30/17 0415 04/30/17 0415 Other Results Laboratory Tests Test 04/29/17 15:15 04/29/17 18:53 04/30/17 01:20 04/30/17 04:15 Potassium Level 4.4 MEQ/L 4.3 MEQ/L 4.1 MEQ/L Random Vancomycin Level 10.3 COMMENT Blood Gas Puncture Site RT RADIAL Blood Gas Patient Temperature 98.6 Blood Gas HCO3 19 mmol/L Blood Gas Base Excess -7.3 mmol/L Blood Gas Oxygen Saturation 84 % Arterial Blood pH 7.21 Arterial Blood Partial Pressure CO2 50 mmHg Arterial Blood Partial Pressure O2 67 mmHg Arterial Blood Oxygen Content 11.8 Vol % Arterial Blood Carboxyhemoglobin 0.8 % Arterial Blood Methemoglobin 1.1 % Blood Gas Hemoglobin 9.9 G/DL Oxygen Delivery Device VENTILATOR Blood Gas Ventilator Setting 400/14/+10 Blood Gas Inspired Oxygen 100 % White Blood Count 25.1 TH/MM3 Red Blood Count 3.67 MIL/MM3 Hemoglobin 10.5 GM/DL Hematocrit 33.6 % Mean Corpuscular Volume 91.6 FL Mean Corpuscular Hemoglobin 28.7 PG Mean Corpuscular Hemoglobin Concent 31.4 % Red Cell Distribution Width 14.2 % Platelet Count 79 TH/MM3 Mean Platelet Volume 9.5 FL Neutrophils (%) (Auto) 88.6 % Lymphocytes (%) (Auto) 6.6 % Monocytes (%) (Auto) 4.5 % Eosinophils (%) (Auto) 0.1 % Basophils (%) (Auto) 0.2 % Neutrophils # (Auto) 22.3 TH/MM3 Lymphocytes # (Auto) 1.7 TH/MM3 Monocytes # (Auto) 1.1 TH/MM3 Eosinophils # (Auto) 0.0 TH/MM3 Basophils # (Auto) 0.1 TH/MM3 CBC Comment AUTO DIFF Differential Total Cells Counted 100 Neutrophils % (Manual) 91 % Band Neutrophils % 5 % Lymphocytes % 2 % Monocytes % 1 % Neutrophils # (Manual) 24.3 TH/MM3 Metamyelocytes 1 % Nucleated Red Blood Cells 1 /100 WBC Differential Comment FINAL DIFF MANUAL Platelet Estimate LOW Platelet Morphology Comment NORMAL Polychromasia 2.3 % Basophilic Stippling FAINT Blood Urea Nitrogen 33 MG/DL Creatinine 1.72 MG/DL Random Glucose 133 MG/DL Total Protein 6.0 GM/DL Albumin 1.5 GM/DL Calcium Level 7.2 MG/DL Magnesium Level 1.3 MG/DL Alkaline Phosphatase 137 U/L Aspartate Amino Transf (AST/SGOT) 104 U/L Alanine Aminotransferase (ALT/SGPT) 35 U/L Total Bilirubin 3.0 MG/DL Sodium Level 143 MEQ/L Chloride Level 115 MEQ/L Carbon Dioxide Level 19.5 MEQ/L Anion Gap 9 MEQ/L Estimat Glomerular Filtration Rate 40 ML/MIN Protein Corrected Calcium 7.8 MG/DL Imaging Last Impressions Chest X-Ray 04/29/17 0000 Signed Impressions: Service Date/Time: April 20:30 - CONCLUSION: 1. Support apparatus in satisfactory position. Diffuse bilateral airspace disease similar to exam from earlier today. Galileo Mead MD Paracentesis 04/27/17 1452 Signed Impressions: Service Date/Time: Thursday, April 27, 2017 15:51 - CONCLUSION: 1. One complicated CT-guided paracentesis. 2. Profound hepatic steatosis. Wallace Cordoba MD Head CT 04/27/17 0000 Signed Impressions: Service Date/Time: Thursday, April 27, 2017 15:44 - CONCLUSION: Diffuse atrophy is present. Areas of encephalomalacia involving the right temporal tip and the left orbitofrontal cortices. No evidence of acute hemorrhage or edema Jesus Duncan MD Abdomen/Pelvis CT 04/26/17 1724 Signed Impressions: Service Date/Time: Wednesday, April 26, 2017 21:23 - CONCLUSION: 1. Severe abdomino-pelvic ascites. 2. Steatosis of the liver. 3. Right inguinal hernia. Cliff Lugo MD Objective Remarks GENERAL: Patient is 61 yo critically ill intubated and on Levophed SKIN: Warm and dry. HEAD: Normocephalic. EYES: No scleral icterus. No injection or drainage. NECK: Supple, trachea midline. No JVD or lymphadenopathy. CARDIOVASCULAR: Regular rate and rhythm without murmurs, gallops, or rubs. RESPIRATORY: Breath sounds equal bilaterally. No accessory muscle use. GASTROINTESTINAL: non-tender, distended. MUSCULOSKELETAL: No cyanosis, or edema. Neuro: Intubated A/P Assessment and Plan 1. VDRF 2. Encephalopathy. 3. Leukocytosis 4. Ascites rule out SBP 5. Acute kidney injury. 6. Urinary tract infection. 7. Hypokalemia. 8. Lactic acidemia 9. Elevated AST. 10. ETOH abuse. 11. History of cerebrovascular accident and seizure disorder. 12. History of chronic obstructive pulmonary disease. Plan Neuro: fentanyl infusion for sedation. Monitor neuro status. Daily sedation vacation. 04/27: Mild- mod slowing. No epileptiform features. 04/27: CT brain: No acute findings On Lactulose 30ml QID, Rifaximin 550mg BID, monitor Ammonia level ( trending down) On Thiamine, MVI, folic acid Pulm: On ACV RR 14, TV 400, PEEP:14, FIO2 100%. Decrease FIO2 as cheryl. Continue with vent support and maintain sats above 92%. Bronchodilators, ICU vent bundle. Check CXR CV: Wean off Levophed maintain MAP > 65 mmHg. Serial lactic acid monitoring. Lactic acid 2.8. For 2D echo Hydrocortisone- HC 50mg IV Q12 : Monitor renal function Is and Os and avoid nephrotoxins. Cr: 1.72 today , on Bumex 1mg IV Q8 Renal- Dr. Lane. CT scan of the abdomen and pelvis showed no evidence of hydronephrosis, masses or stones. GI: On tube feeds- Nepro advance to goal rate 40 ml/hr, on Pepcid 10 mg IV q. 12 for GI prophylaxis Monitor LFT's, s/p CT guided paracentesis with removal 4L. Follow up on fluid cx- NGTD ID: Continue with abx per ID ( On Zosyn, Micafungin, Vanco, Azithromycin) monitor for signs of infections Follow up on blood cultures Urine culture: E.coli Heme: Monitor CBC GI prophylaxis with Pepcid 10 mg IV q. 12 and DVT prophylaxis with SCDs. Endo: SSI for glucemic control Lines: Right IJ central line placed 04/27 Patient is critically ill with sepsis, resp failure , renal failure, encephalopathy and UTI. Palliative care consult to asses with goals of care. CCT 30 mins Sonny Khan MD Apr 30, 2017 06:49
--- NOTE | 2017-04-30 07:43 | RADRPT ---
EXAM DATE/TIME: 04/30/2017 07:04 [place] COMPARISON: CHEST SINGLE AP, April 29, 2017, 20:30. INDICATIONS : Ventilator dependent respiratory failure. MEDICAL HISTORY : Chronic obstructive pulmonary disease. Myocardial infarction. Seizures. SURGICAL HISTORY : Right ORIF hip ENCOUNTER: Subsequent ACUITY: 4 - 6 days PAIN SCORE: Non-responsive. LOCATION: Bilateral chest FINDINGS: There is a stable ETT, right IJ central line and NGT coursing of the GE junction with delay from the image. Continued diffuse interstitial and alveolar opacities bilaterally with slight increased consol idation in the right lower lung zone. Cardiomediastinal contours are stable. No significant pneumotho rax. Remainder of exam is unchanged. CONCLUSION: 1. Stable tubes and lines, as above. 2. Continued diffuse bilateral interstitial and alveolar opacities with slight increase consolidation in the right lower lung zone. Wallace Cordoba MD on April 30, 2017 at 7:39 Board Certified Radiologist. This report was verified electronically.
[2017-04-30] MEDS: FOLIC ACID 1 MG TAB PO SCH (08:55)
[2017-04-30] MEDS: THIAMINE HCL 100 MG TAB PO SCH (08:55)
[2017-04-30] MEDS: AZITHROMYCIN 250 MG TAB PO SCH (08:55)
[2017-04-30] MEDS: CALCIUM CARBONATE 1.25 GM (CA 500 MG) TAB PO SCH ×2 (08:55→20:57)
[2017-04-30] MEDS: RIFAXIMIN 550 MG TAB PO SCH ×2 (08:55→20:57)
[2017-04-30] MEDS: MULTIVITAMIN TAB PO SCH (08:55)
[2017-04-30] MEDS: HYDROCORTISONE SOD SUCCINATE 100 MG VIAL IV PUSH SCH ×2 (08:55→20:57)
[2017-04-30] MEDS: SODIUM CHLORIDE 0.9% FLUSH 10 ML FLUSH IV FLUSH SCH ×2 (08:56→20:58)
[2017-04-30] MEDS: DOCUSATE SODIUM 50 MG/SENNA 8.6 MG TAB PO SCH ×2 (09:00→20:59)
[2017-04-30] MEDS: LACTULOSE SYRUP 20 GM/30 ML CUP PO SCH ×4 (09:00→20:57)
[2017-04-30] MEDS: VASOPRESSIN INJ 40 UNITS in DEXTROSE 5% IN WATER 100ML INJ 98 ML IV SCH ×2 (11:01)
[2017-04-30] MEDS: NOREPINEPHRINE 4 MG/D5W 250 ML IV PRN (11:14)
--- NOTE | 2017-04-30 11:20 | PD.CONS ---
Consult Service Palliative Care Consult Requested By Dr Khan . Primary Care Physician Unknown Reason for Consultation a. To assist with evaluation and management of symptoms including: encephalopathy, dyspnea b. To assist medical decision maker(s) with: better understanding of current medical conditions; weighing benefits/burdens of medical treatment options; making medical treatment decisions. HPI History of Present Illness This 61-year-old male presented to the ED on 04/26/17 as a Dwyer act with the police department, and EMS. Per EMS patient is currently residing at a hotel he told someone there that he wanted to therefore police was called in he was brought to the ED. ED presentation patient reporting he wants to but otherwise refusing to answer questions. Police later informed ED staff that patient will not be Dwyer acted however he will be under arrest because he is under a warrant. * ED course: Patient appears chronically ill, jaundiced. Significant ascites. Abdominal tenderness. Blood cultures obtained. CXR notes mild interstitial opacities left upper no pneumothorax, multiple stable left rib fractures. Go cytosis 21.6, calcium 7.0 lactic acid 2.4, ammonia 54, total bilirubin 2.9. GFR 26. UA positive, culture sent. CT abdomen pelvis= of your abdominal pelvic ascites with steatosis of liver. Patient was admitted for further evaluation and management of UTI, pneumonia. ED physician notes patient does not have decisional capacity to make decisions including leaving AGAINST MEDICAL ADVICE or refusing care. * Patient started on azithromycin, Rocephin, IR consulted for paracentesis * 04/27 [facility] called for change in condition patient noted to be unresponsive. He was intubated, transferred to ICU. Some hypotension, central line placed by critical care. Requiring pressors. * Psychiatry consulted: At time of psychiatry consultation patient was intubated and unable to participate in psychiatric evaluation. * ID consulted: Urine positive GNB, recommends continue broad-spectrum antibiotics for pneumonia versus ARDS (more likely) ; following cultures [Vanco , Zosyn, micafungin] * EEG: Abnormal mild to moderate slowing suggesting mild/moderate diffuse disturbance of cerebral function. No epileptiform features * Nephrology consulted 04/28 for worsening renal function, decreased urine output. Acute kidney injury likely secondary to sepsis, decreased renal perfusion and hypotension. Renal function stable though low urine output. Follow renal function may require dialysis if urine output does not improve. Also consider hepatorenal syndrome, avoid nephrotoxic agents. CT-guided Paracentesis , 4 L removed. Urine positive Escherichia coli. * 04/29 intubated, sedated on fentanyl. Still on pressors. Requiring bicarbonate drip. On 100% FiO2 on vent. Palliative care consulted to assist with clarification of goals of treatment. Bumex drip added, renal continues to follow. * 04/30 remains on fentanyl, on mechanical vent. Increased PEEP overnight. Required additional Bumex. CXR= diffuse bilateral pulmonary infiltrates. Requiring Levophed, vasopressin off. Patient seen in room as bench lay out technician completing exam. He is sedated on fentanyl, minimally responsive on mechanical vent. Does withdraw feet slightly to pain does not withdraw hands. No eye opening to stimuli. Renal function stable though still minimal urine output, RN has attempted to place Castellano catheter however unable to advance. Discuss with primary nurse, critical care. Later pt Friend/landlord arrived, Opal. Met w her briefly at bedside. She has known pt around 18 years. She informs that pt goes in and out of her hotel in [place]. She tells me he is ambulatory short distances with a walker though may actually need a wheelchair. She tells me he generally is reluctant to seek any care and she in the past felt she should call 911 for him bc he seemed ill/ weak but he has refused. She tells me that he avoids doctors and the hospital. She also reports that he has told her he was a having served in the in [place]. He is originally from [place] and has lived in [place] for many years. No other family that she is aware of though he may have an adult daughter she does not know her name or location, she may be in [place]. She states the patient is very stubborn and at times can be "cranky and ornery " She has been assisting the patient for several years now on and off--she indicates the patient gets a check which he "gives to her "and she then applies it towards his rent, also buys him whatever groceries he needs, (1) 4 pack of beer per day, and assists to care for him as needed with this payment. Per review of available records in EMR: Patient with history of numerous ED and hospital visit secondary to injuries, EtOH intoxication, needing refill of seizure medications etc, over the past many years. He is noted on several occasions to be homeless since at least 2007 and is noted to have had several attempts by case management setting up with outpatient clinic etc. He has not been amenable to discharged to [facility] or other assistance. During one prior admission he did list a brother (Edin Goode )is a contact however case management notes during that visit note that the patient reported his brother is . Function/Cognitive Trajectory hx injuries/falls, hx homelessness/ ?AMS at admission, most recent baseline not known. [facility] short distances with a walker though might be better served by a wheelchair. . Review of Systems ROS Limitations: Clinical Condition, Intubated, Altered Mental Status Past Family Social History Coded Allergies: codeine (Unverified Allergy, Severe, N/V, 04/26/17) propoxyphene (Unverified Allergy, Severe, HIVES, 04/26/17) Past Medical History COPD Tobacco and alcohol abuse Cervical fracture Seizure disorder hx Noncompliance CVA Anxiety and depression History of subdural hematoma . Past Surgical History None Reported Medications ? None though appears patient is supposed to be on seizure medication . Current Medications Medications (Trade) Dose Ordered Sig/Shanelle Route Start Time Stop Time Status Last Admin (NS Flush) 2 ml UNSCH PRN IV FLUSH 04/26/17 22:30 (NS Flush) 2 ml BID IV FLUSH 04/27/17 09:00 04/30/17 08:56 (Zofran Inj) 4 mg Q6H PRN IVP 04/26/17 22:30 (Narcan Inj) 0.4 mg UNSCH PRN IV PUSH 04/26/17 22:30 (Yue-Colace) 1 tab BID PO 04/27/17 09:00 04/29/17 10:00 (Milk Of Magnesia Liq) 30 ml Q12H PRN PO 04/26/17 22:30 (Senokot) 17.2 mg Q12H PRN PO 04/26/17 22:30 (Dulcolax Supp) 10 mg DAILY PRN RECTAL 04/26/17 22:30 (Lactulose Liq) 30 ml DAILY PRN PO 04/26/17 22:30 (Romazicon Inj) 0.2 mg Q1M PRN IV PUSH 04/26/17 22:30 (Ativan) 1 mg Q4H PRN PO 04/26/17 22:30 (Ativan Inj) 1 mg Q4H PRN IV PUSH 04/26/17 22:30 04/27/17 01:08 (Ativan) 2 mg Q2H PRN PO 04/26/17 22:30 (Ativan Inj) 2 mg Q2H PRN IV PUSH 04/26/17 22:30 (Ativan Inj) 2 mg Q1H PRN IV PUSH 04/26/17 22:30 (Ativan Inj) 2 mg Q15M PRN IV PUSH 04/26/17 22:30 (Zithromax) 250 mg DAILY PO 04/27/17 09:00 04/30/17 08:55 (Duoneb Neb) 1 ampule Q4HR NEB NEB 04/27/17 00:45 04/30/17 08:17 (Vitamin B1) 100 mg DAILY PO 04/30/17 09:00 04/30/17 08:55 (Oscal) 500 mg Q12HR PO 04/27/17 09:00 04/30/17 08:55 Fentanyl Citrate 250 ml @ 5 mls/hr TITRATE PRN IV 04/27/17 10:00 04/28/17 18:40 Propofol 100 ml @ 2.106 mls/ hr TITRATE PRN IV 04/27/17 10:00 (Brethine Inj) 1 mg UNSCH PRN SQ 04/27/17 10:00 Piperacillin Sod/ Tazobactam Sod 50 ml @ 100 mls/hr Q8H IV 04/27/17 10:00 04/30/17 08:55 (Pepcid Inj) 10 mg Q12H IV PUSH 04/27/17 14:00 04/30/17 01:12 (Folate) 1 mg DAILY PO 04/27/17 13:30 04/30/17 08:55 (Theragran) 1 tab DAILY PO 04/27/17 13:30 04/30/17 08:55 Norepinephrine Bitartrate 250 ml @ 7.5 mls/hr TITRATE PRN IV 04/27/17 15:15 04/29/17 17:24 Micafungin Sodium 150 mg/Sodium Chloride 100 ml @ 100 mls/hr Q24H IV 04/27/17 22:00 04/29/17 20:27 Miscellaneous Information Patient in critical care unit? Ass... [id number] .XX 04/28/17 00:30 (Chlorhexidine 2% Cloth) 3 pack DAILY@04 TOPICAL 04/28/17 04:00 05/02/17 04:01 04/30/17 04:00 (Chlorhexidine 2% Cloth) 3 pack UNSCH PRN TOPICAL 04/28/17 00:30 05/03/17 00:19 (D50w (Vial) Inj) 50 ml UNSCH PRN IV PUSH 04/28/17 07:00 (Glucagon Inj) 1 mg UNSCH PRN OTHER 04/28/17 07:00 (NovoLIN R SUPPLEMENTAL SCALE) 1 Q4HR SQ 04/28/17 08:00 04/29/17 09:59 Vasopressin 40 units/Dextrose 100 ml @ 6 mls/hr [id number] IV 04/28/17 09:45 04/29/17 06:06 (Lactulose Liq) 30 ml QID PO 04/28/17 18:00 04/29/17 10:01 (Xifaxan) 550 mg BID PO 04/28/17 21:00 04/30/17 08:55 (SoluCORTEF INJ) 50 mg Q12HR IV PUSH 04/29/17 21:00 04/30/17 08:55 (Bumex Inj) 1 mg Q8H IV PUSH 04/29/17 20:00 04/30/17 04:00 Family History Patient refused to answer this admission, no available family history per review of EMR, patient now ventilated, sedated and unable to provide Substance Use Tobacco: Per EMR smokes about 6 cigarettes per day since very young Alcohol: Per EMR drinks 2-3 beers daily; per landlord 4 beers a day, per EMR at one point patient had reported 24 beers a day in the past Prescription med abuse: None reported Illicits: None reported . Psychosocial History Per EMR patient reported to be homeless though at times resides in a hotel room. (Intermittently rinse room per friend/landlord) Per case management record- patient reports no Social Security number or contact persons. Per prior visit ID in EMR, note a scanned ID card documenting SSN #[id number]. During a prior visit in EMR 2014, contacts documented a brother Edin Goode @ [address] [place] [address] --> case management notes that the patient reports brother however he was living in that mobile home with his sister in law. . Spiritual/Cultural Factors Not known Living Will: Never completed Health Care Surrogate: Never completed Durable Power of Mangle Catcher: Never completed Ethical and Legal Issues Patient currently intubated and sedated and unable to participate in decision- making. Prior to intubation and sedation ED physician notes that patient did not have the capacity to make his own decisions. Patient previously listed a brother as a contact during past hospitalizations, however per later records/ admissions he later indicated this brother . No other family contact has been listed. need to obtain ACCURINT report to locate next of kin; if no next of kin can be identified may need appointed /temporary legal decision- maker such as social work advantage. SSN# per prior ID card scanned in EMR: [id number]. Physical Exam Vital Signs Date Time Temp Pulse Resp B/P (MAP) Pulse Ox O2 Delivery O2 Flow Rate FiO2 04/30/17 08:18 95 60 04/30/17 08:00 70 04/30/17 08:00 98.4 93 14 94/59 (71) 98 04/30/17 06:29 70 04/30/17 06:02 90/61 04/30/17 06:00 95 04/30/17 04:00 100 04/30/17 04:00 99 04/30/17 04:00 100 100 04/30/17 04:00 97.6 99 14 84/59 (67) 100 04/30/17 02:00 92 04/30/17 01:15 85/58 04/30/17 01:00 100 100 04/30/17 00:00 93 04/30/17 00:00 93 04/30/17 00:00 100 04/30/17 00:00 97.7 93 14 91/59 (70) 100 04/29/17 23:07 93 95/62 04/29/17 22:00 94 04/29/17 21:42 97 100 04/29/17 20:02 87/54 04/29/17 20:00 96 04/29/17 20:00 97.5 96 14 87/53 (64) 94 04/29/17 20:00 100 04/29/17 19:50 91 100 04/29/17 18:00 96 04/29/17 17:24 100 77/47 04/29/17 16:25 97 100 04/29/17 16:00 98.6 96 80/53 (62) 94 04/29/17 16:00 100 04/29/17 16:00 96 04/29/17 14:00 93 04/29/17 13:00 89 125/71 04/29/17 12:01 97 70 04/29/17 12:00 87 04/29/17 12:00 80 04/29/17 12:00 98.1 87 108/66 (80) 97 Exam CONSTITUTIONAL/GENERAL: Chronically ill-appearing patient, minimally responsive on mechanical vent TUBES/LINES/DRAINS: Right IJ central line, ET tube, OG tube SKIN: No wounds seen anteriorly. Skin temperature appropriate warm. Chronic scaling, thickening noted to skin bilateral lower extremities especially to feet. HEAD: Atraumatic. Normocephalic. EYES: Pupils 2 mm, questionable reaction to light. No scleral icterus. No injection or drainage. Fundi not examined. ENT: Nose without bleeding or purulent drainage. Unable to examine oropharynx secondary to ET tube, OG tube. NECK: Trachea midline. Supple, nontender. No palpable thyroid enlargement or nodularity. CARDIOVASCULAR: Regular rate and rhythm without murmur. No JVD. Unable to palpate pedal pulses. Radial pulses palpable.+ Edema bilateral upper extremities RESPIRATORY/CHEST: Symmetric respirations via ETT to mech vent, some abdominal muscle use. decreased breath sounds, course air movement. GASTROINTESTINAL: Abdomen slightly firm, +distended. limited palpation secondary to distention, no readily palpable masses. OG clamped. BS intermittent GENITOURINARY: Without palpable bladder distension. MUSCULOSKELETAL: Extremities without clubbing, cyanosis. Edema BUE. No joint effusion noted. No mottling or clubbing. LYMPHATICS: No palpable cervical or supraclavicular adenopathy. NEUROLOGICAL: Sedated on mechanical vent. Minimally responsive to exam. Withdraws lower extremity slightly to pain stimuli does not withdrawal upper extremities. PSYCHIATRIC: Limited assessment due to clinical conditionNo obvious anxiety/ depression. Diagnostic Tests Laboratory Laboratory Tests Test 04/27/17 10:55 04/27/17 13:00 04/27/17 14:25 04/27/17 14:50 Ammonia 57 MCMOL/L (11-32) Urine Opiates Screen NEG (NEG) Urine Barbiturates Screen NEG (NEG) Urine Amphetamines Screen NEG (NEG) Urine Benzodiazepines Screen NEG (NEG) Urine Cocaine Screen NEG (NEG) Urine Cannabinoids Screen NEG (NEG) White Blood Count 23.4 TH/MM3 (4.0-11.0) Red Blood Count 3.19 MIL/MM3 (4.50-5.90) Hemoglobin 9.4 GM/DL (13.0-17.0) Hematocrit 28.8 % (39.0-51.0) Mean Corpuscular Volume 90.3 FL (80.0-100.0) Mean Corpuscular Hemoglobin 29.3 PG (27.0-34.0) Mean Corpuscular Hemoglobin Concent 32.5 % (32.0-36.0) Red Cell Distribution Width 13.6 % (11.6-17.2) Platelet Count 166 TH/MM3 (150-450) Mean Platelet Volume 9.3 FL (7.0-11.0) Neutrophils (%) (Auto) 84.8 % (16.0-70.0) Lymphocytes (%) (Auto) 8.3 % (9.0-44.0) Monocytes (%) (Auto) 6.2 % (0.0-8.0) Eosinophils (%) (Auto) 0.4 % (0.0-4.0) Basophils (%) (Auto) 0.3 % (0.0-2.0) Neutrophils # (Auto) 19.8 TH/MM3 (1.8-7.7) Lymphocytes # (Auto) 1.9 TH/MM3 (1.0-4.8) Monocytes # (Auto) 1.5 TH/MM3 (0-0.9) Eosinophils # (Auto) 0.1 TH/MM3 (0-0.4) Basophils # (Auto) 0.1 TH/MM3 (0-0.2) CBC Comment DIFF FINAL Differential Comment Blood Urea Nitrogen 35 MG/DL (7-18) Creatinine 2.32 MG/DL (0.60-1.30) Random Glucose 154 MG/DL (74-106) Total Protein 6.1 GM/DL (6.4-8.2) Calcium Level 5.9 MG/DL (8.5-10.1) Sodium Level 144 MEQ/L (136-145) Potassium Level 3.1 MEQ/L (3.5-5.1) Chloride Level 113 MEQ/L (98-107) Carbon Dioxide Level 19.0 MEQ/L (21.0-32.0) Anion Gap 12 MEQ/L (5-15) Estimat Glomerular Filtration Rate 29 ML/MIN (>89) Lactic Acid Level 3.6 mmol/L (0.4-2.0) Protein Corrected Calcium 6.3 MG/DL (8.5-10.1) Blood Gas Puncture Site RT RADIAL Blood Gas Patient Temperature 98.6 Blood Gas HCO3 16 mmol/L (22-26) Blood Gas Base Excess -8.1 mmol/L (-2-2) Blood Gas Oxygen Saturation 97 % (90-100) Arterial Blood pH 7.36 (7.380-7.420) Arterial Blood Partial Pressure CO2 30 mmHg (38-42) Arterial Blood Partial Pressure O2 144 mmHg (61-120) Arterial Blood Oxygen Content 15.4 Vol % (12.0-20.0) Arterial Blood Carboxyhemoglobin 0.8 % (0-4) Arterial Blood Methemoglobin 0.9 % (0-2) Blood Gas Hemoglobin 11.1 G/DL (12.0-16.0) Oxygen Delivery Device VENTILATOR Blood Gas Ventilator Setting AC 14/500/PEEP5 Blood Gas Inspired Oxygen 40 % Test 04/27/17 16:00 04/28/17 04:14 04/28/17 07:30 04/28/17 13:45 Peritoneal Fluid WBC 2200 /MM3 (0-10) Peritoneal Fluid RBC 211 /MM3 (0-0) Peritoneal Fluid Neutrophils 98 % Peritoneal Fluid Lymphocytes 1 % Peritoneal Fluid Monocytes 1 % Peritoneal Fluid Total Protein 0.9 GM/DL Peritoneal Fluid Albumin 0.1 G/DL Peritoneal Fluid LDH 82 U/L Peritoneal Fluid Glucose 140 MG/DL White Blood Count 21.1 TH/MM3 (4.0-11.0) Red Blood Count 3.39 MIL/MM3 (4.50-5.90) Hemoglobin 9.7 GM/DL (13.0-17.0) Hematocrit 30.6 % (39.0-51.0) Mean Corpuscular Volume 90.2 FL (80.0-100.0) Mean Corpuscular Hemoglobin 28.6 PG (27.0-34.0) Mean Corpuscular Hemoglobin Concent 31.7 % (32.0-36.0) Red Cell Distribution Width 13.8 % (11.6-17.2) Platelet Count 146 TH/MM3 (150-450) Mean Platelet Volume 9.4 FL (7.0-11.0) Neutrophils (%) (Auto) 79.8 % (16.0-70.0) Lymphocytes (%) (Auto) 11.1 % (9.0-44.0) Monocytes (%) (Auto) 6.2 % (0.0-8.0) Eosinophils (%) (Auto) 1.9 % (0.0-4.0) Basophils (%) (Auto) 1.0 % (0.0-2.0) Neutrophils # (Auto) 16.8 TH/MM3 (1.8-7.7) Lymphocytes # (Auto) 2.3 TH/MM3 (1.0-4.8) Monocytes # (Auto) 1.3 TH/MM3 (0-0.9) Eosinophils # (Auto) 0.4 TH/MM3 (0-0.4) Basophils # (Auto) 0.2 TH/MM3 (0-0.2) CBC Comment DIFF FINAL Differential Comment Blood Urea Nitrogen 36 MG/DL (7-18) Creatinine 2.34 MG/DL (0.60-1.30) Random Glucose 152 MG/DL (74-106) Total Protein 6.4 GM/DL (6.4-8.2) Albumin 1.1 GM/DL (3.4-5.0) Calcium Level 6.9 MG/DL (8.5-10.1) Alkaline Phosphatase 158 U/L (45-117) Aspartate Amino Transf (AST/SGOT) 126 U/L (15-37) Alanine Aminotransferase (ALT/SGPT) 33 U/L (12-78) Total Bilirubin 2.4 MG/DL (0.2-1.0) Sodium Level 143 MEQ/L (136-145) Potassium Level 2.2 MEQ/L (3.5-5.1) 3.0 MEQ/L (3.5-5.1) Chloride Level 113 MEQ/L (98-107) Carbon Dioxide Level 17.0 MEQ/L (21.0-32.0) Anion Gap 13 MEQ/L (5-15) Estimat Glomerular Filtration Rate 28 ML/MIN (>89) Protein Corrected Calcium 7.3 MG/DL (8.5-10.1) Random Vancomycin Level 10.9 COMMENT Lactic Acid Level 2.8 mmol/L (0.4-2.0) Phosphorus Level 3.0 MG/DL (2.5-4.9) Magnesium Level 1.5 MG/DL (1.5-2.5) Ammonia 77 MCMOL/L (11-32) Test 04/28/17 21:20 04/29/17 04:15 04/29/17 15:15 04/29/17 18:53 Potassium Level 3.5 MEQ/L (3.5-5.1) 3.3 MEQ/L (3.5-5.1) 4.4 MEQ/L (3.5-5.1) White Blood Count 24.6 TH/MM3 (4.0-11.0) Red Blood Count 3.25 MIL/MM3 (4.50-5.90) Hemoglobin 9.4 GM/DL (13.0-17.0) Hematocrit 29.2 % (39.0-51.0) Mean Corpuscular Volume 89.9 FL (80.0-100.0) Mean Corpuscular Hemoglobin 29.0 PG (27.0-34.0) Mean Corpuscular Hemoglobin Concent 32.2 % (32.0-36.0) Red Cell Distribution Width 13.8 % (11.6-17.2) Platelet Count 107 TH/MM3 (150-450) Mean Platelet Volume 9.4 FL (7.0-11.0) Neutrophils (%) (Auto) 89.1 % (16.0-70.0) Lymphocytes (%) (Auto) 6.6 % (9.0-44.0) Monocytes (%) (Auto) 4.0 % (0.0-8.0) Eosinophils (%) (Auto) 0.0 % (0.0-4.0) Basophils (%) (Auto) 0.3 % (0.0-2.0) Neutrophils # (Auto) 21.9 TH/MM3 (1.8-7.7) Lymphocytes # (Auto) 1.6 TH/MM3 (1.0-4.8) Monocytes # (Auto) 1.0 TH/MM3 (0-0.9) Eosinophils # (Auto) 0.0 TH/MM3 (0-0.4) Basophils # (Auto) 0.1 TH/MM3 (0-0.2) CBC Comment DIFF FINAL Differential Comment Blood Urea Nitrogen 31 MG/DL (7-18) Creatinine 1.74 MG/DL (0.60-1.30) Random Glucose 207 MG/DL (74-106) Total Protein 6.1 GM/DL (6.4-8.2) Albumin 1.4 GM/DL (3.4-5.0) Calcium Level 6.6 MG/DL (8.5-10.1) Alkaline Phosphatase 148 U/L (45-117) Aspartate Amino Transf (AST/SGOT) 119 U/L (15-37) Alanine Aminotransferase (ALT/SGPT) 38 U/L (12-78) Total Bilirubin 3.1 MG/DL (0.2-1.0) Sodium Level 144 MEQ/L (136-145) Chloride Level 115 MEQ/L (98-107) Carbon Dioxide Level 18.9 MEQ/L (21.0-32.0) Anion Gap 10 MEQ/L (5-15) Estimat Glomerular Filtration Rate 40 ML/MIN (>89) Protein Corrected Calcium 7.1 MG/DL (8.5-10.1) Ammonia 38 MCMOL/L (11-32) Random Vancomycin Level 10.3 COMMENT Blood Gas Puncture Site RT RADIAL Blood Gas Patient Temperature 98.6 Blood Gas HCO3 19 mmol/L (22-26) Blood Gas Base Excess -7.3 mmol/L (-2-2) Blood Gas Oxygen Saturation 84 % (90-100) Arterial Blood pH 7.21 (7.380-7.420) Arterial Blood Partial Pressure CO2 50 mmHg (38-42) Arterial Blood Partial Pressure O2 67 mmHg (61-120) Arterial Blood Oxygen Content 11.8 Vol % (12.0-20.0) Arterial Blood Carboxyhemoglobin 0.8 % (0-4) Arterial Blood Methemoglobin 1.1 % (0-2) Blood Gas Hemoglobin 9.9 G/DL (12.0-16.0) Oxygen Delivery Device VENTILATOR Blood Gas Ventilator Setting 400/14/+10 Blood Gas Inspired Oxygen 100 % Test 04/30/17 01:20 04/30/17 04:15 Potassium Level 4.3 MEQ/L (3.5-5.1) 4.1 MEQ/L (3.5-5.1) White Blood Count 25.1 TH/MM3 (4.0-11.0) Red Blood Count 3.67 MIL/MM3 (4.50-5.90) Hemoglobin 10.5 GM/DL (13.0-17.0) Hematocrit 33.6 % (39.0-51.0) Mean Corpuscular Volume 91.6 FL (80.0-100.0) Mean Corpuscular Hemoglobin 28.7 PG (27.0-34.0) Mean Corpuscular Hemoglobin Concent 31.4 % (32.0-36.0) Red Cell Distribution Width 14.2 % (11.6-17.2) Platelet Count 79 TH/MM3 (150-450) Mean Platelet Volume 9.5 FL (7.0-11.0) Neutrophils (%) (Auto) 88.6 % (16.0-70.0) Lymphocytes (%) (Auto) 6.6 % (9.0-44.0) Monocytes (%) (Auto) 4.5 % (0.0-8.0) Eosinophils (%) (Auto) 0.1 % (0.0-4.0) Basophils (%) (Auto) 0.2 % (0.0-2.0) Neutrophils # (Auto) 22.3 TH/MM3 (1.8-7.7) Lymphocytes # (Auto) 1.7 TH/MM3 (1.0-4.8) Monocytes # (Auto) 1.1 TH/MM3 (0-0.9) Eosinophils # (Auto) 0.0 TH/MM3 (0-0.4) Basophils # (Auto) 0.1 TH/MM3 (0-0.2) CBC Comment AUTO DIFF Differential Total Cells Counted 100 Neutrophils % (Manual) 91 % (16-70) Band Neutrophils % 5 % (0-6) Lymphocytes % 2 % (9-44) Monocytes % 1 % (0-8) Neutrophils # (Manual) 24.3 TH/MM3 (1.8-7.7) Metamyelocytes 1 % (0-1) Nucleated Red Blood Cells 1 /100 WBC (0-0) Differential Comment FINAL DIFF MANUAL Platelet Estimate LOW (NORMAL) Platelet Morphology Comment NORMAL (NORMAL) Polychromasia 2.3 % (0.0-1.9) Basophilic Stippling FAINT (NORMAL) Blood Urea Nitrogen 33 MG/DL (7-18) Creatinine 1.72 MG/DL (0.60-1.30) Random Glucose 133 MG/DL (74-106) Total Protein 6.0 GM/DL (6.4-8.2) Albumin 1.5 GM/DL (3.4-5.0) Calcium Level 7.2 MG/DL (8.5-10.1) Magnesium Level 1.3 MG/DL (1.5-2.5) Alkaline Phosphatase 137 U/L (45-117) Aspartate Amino Transf (AST/SGOT) 104 U/L (15-37) Alanine Aminotransferase (ALT/SGPT) 35 U/L (12-78) Total Bilirubin 3.0 MG/DL (0.2-1.0) Sodium Level 143 MEQ/L (136-145) Chloride Level 115 MEQ/L (98-107) Carbon Dioxide Level 19.5 MEQ/L (21.0-32.0) Anion Gap 9 MEQ/L (5-15) Estimat Glomerular Filtration Rate 40 ML/MIN (>89) Protein Corrected Calcium 7.8 MG/DL (8.5-10.1) Result Diagram: 04/30/17 0415 04/30/17 0415 Microbiology Microbiology Date/Time Source Procedure Growth Status 04/27/17 16:00 Fluid Peritoneal Fluid Gram Stain - Final Complete 04/27/17 16:00 Fluid Peritoneal Fluid Body Fluid Culture - Final NO GROWTH IN 72 HRS.--AEROBICALLY OR ... Complete Imaging Last Impressions Chest X-Ray 04/30/17 0000 Signed Impressions: Service Date/Time: Sunday, April 30, 2017 07:04 - CONCLUSION: 1. Stable tubes and lines, as above. 2. Continued diffuse bilateral interstitial and alveolar opacities with slight increase consolidation in the right lower lung zone. Wallace Cordoba MD Paracentesis 04/27/17 1452 Signed Impressions: Service Date/Time: Thursday, April 27, 2017 15:51 - CONCLUSION: 1. One complicated CT-guided paracentesis. 2. Profound hepatic steatosis. Wallace Cordoba MD Head CT 04/27/17 0000 Signed Impressions: Service Date/Time: Thursday, April 27, 2017 15:44 - CONCLUSION: Diffuse atrophy is present. Areas of encephalomalacia involving the right temporal tip and the left orbitofrontal cortices. No evidence of acute hemorrhage or edema Jesus Duncan MD Abdomen/Pelvis CT 04/26/17 0980 Signed Impressions: Service Date/Time: Wednesday, April 26, 2017 21:23 - CONCLUSION: 1. Severe abdomino-pelvic ascites. 2. Steatosis of the liver. 3. Right inguinal hernia. Cliff Lugo MD Procedures 04/27 intubation, right IJ central line 04/28 CT-guided Paracentesis, 4 L . Patient/Family Conference Issues Discussed: Goals TBD, palliative will plan to discuss conditions, goals etc. once appropriate legal decision maker has been identified. . Assessment and Plan Disease Oriented Problem List: (1) Respiratory failure, acute (2) COPD (chronic obstructive pulmonary disease) (3) Tobacco abuse (4) Hepatic encephalopathy (5) Pneumonia (6) Severe sepsis (7) Acute kidney injury (8) Hypokalemia (9) Alcohol abuse (10) Metabolic acidosis Symptom Scale: (1) Dyspnea (2) Encephalopathy Pertinent Non-Medical Issues Psychosocial:Per EMR patient reported to be homeless though at times resides in a hotel room. Per case management record- patient reports no Social Security number or contact persons. Per prior visit ID in EMR, note a scanned ID card documenting SSN #[id number]. During a prior visit in EMR 2014, contacts documented a brother Edin Goode @ [address] [place] [address] --> case management notes that the patient reports brother however he was living in that mobile home with his sister in law. Multiple hospitalizations note patient homeless and no other family reported. Spiritual: Not known Legal:Patient currently intubated and sedated and unable to participate in decision-making. Prior to intubation and sedation ED physician notes that patient did not have the capacity to make his own decisions. Patient previously listed a brother [Edin Goode] as a contact during past hospitalizations, however per later records/admissions he later indicated this brother . No other family contact has been listed. need to obtain ACCURINT report to locate next of kin; if no next of kin can be identified may need appointed /temporary legal decision-maker such as social work advantage. SSN# per prior ID card scanned in EMR: [id number]. Ethical issues impacting care:no ethical issues identified at this time Important Contacts None listed; Patient previously reported a brother Edin Goode in [place] as a contact however this person during later visits was reported to be . No other family is known at this time. Landlord/friend Opal Leonardo; [facility]. [phone] ritesh // [phone] office . Prognosis Condition is critical, Prognosis at this time guarded in terms of survival and recovery. Patient with long history of EtOH and various complications secondary to. Now with multiorgan failure requiring mechanical vent. He remains at risk for ongoing, medications and setbacks. If he does survive current acute hospitalization, he will likely have ongoing risk for further decline in complications. . Code Status: Full Code Plan * Legal decision maker:Patient currently intubated and sedated and unable to participate in decision-making. Prior to intubation and sedation ED physician notes that patient did not have the capacity to make his own decisions. Patient previously listed a brother as a contact during past hospitalizations, however per later records/admissions he later indicated this brother . No other family contact has been listed. need to obtain ACCURINT report to locate next of kin; if no next of kin can be identified may need appointed / temporary legal decision-maker such as social work advantage. SSN# per prior ID card scanned in EMR: [id number]. Jackie informs patient may have a daughter though did not know her name or location. She is going to continue to look through patient's paperwork in his rented room to see if she can find more contact information. * Goals: TBD, pending identification of appropriate legal decision maker. Palliative will discuss conditions, goals once appropriate legal decision maker is identified. * CODE STATUS: Full code by default * SYMPTOMS: --Encephalopathy/AMS-now intubated and sedated. Long history of EtOH abuse, seizures and secondary injuries. Likely multifactorial: Hepatic, renal dysfunction, sepsis, respiratory failure. EEG indicative mild to moderate slowing. --Dyspnea-admitted with pneumonia, worsening respiratory status now intubated ,? ARDS, requiring high levels of ventilator support. * Palliative care will continue to follow during hospital course as condition evolves, to assist patient/decision-maker with understanding of medical conditions, weighing benefits/burdens of treatment options, for clarification of goals of treatment. Additionally will assist with any symptoms of palliative concern Time Spent Total Floor Time (mins): 50 (Chart review, PE, discussion with nursing critical care, discussion with remaining) Thank you for the opportunity to participate in the care of Mr. Goode. Attestation To help prompt me to consider important information that might be impacting today's encounter and assessment, information from prior notes written by myself or my colleagues may have been "brought forward" into today's note. My signature on this note, however, is an attestation that I personally performed the exam, history, and/or decision-making noted today, and, unless otherwise indicated, the interactions with patient, family, and staff as well as the review of records all occurred today. I also attest that the listed assessment and stated plan reflect my best clinical judgment today based on the combination of historical information, prior notes, and today's exam/ interactions. When time spent is documented, it refers only to time spent today by the signer, or if indicated, combined time spent today by collaborating physician/nurse practitioner. Liliam Shell Apr 30, 2017 11:20
--- NOTE | 2017-04-30 12:01 | RADRPT ---
EXAM DATE/TIME: 04/30/2017 11:40 [facility] COMPARISON: No previous studies available for comparison. INDICATIONS : Ascites. MEDICAL HISTORY : Chronic obstructive pulmonary disease. Myocardial infarction. Cerebrovascular accident. Seizures. M igraines. Renal disease. Liver disease. Pneumonia. ETOH abuse. Depression. Anxiety. SURGICAL HISTORY : Right hip surgery. ENCOUNTER: Initial ACUITY: 4-6 days PAIN SCORE: Nonresponsive. LOCATION: Abdomen. AREA EVALUATED: Abdominal quadrants. FINDINGS: Imaging of the abdomen and pelvis was performed to evaluate for ascites for possible paracentesis. Mo derate ascites is present CONCLUSION: Moderate ascites is still present. Jesus Duncan MD on April 30, 2017 at 11:59 Board Certified Radiologist. This report was verified electronically.
--- NOTE | 2017-04-30 13:19 | HHI.NPPN ---
Subjective Interval History patient was seen and examined. He is doing poorly. On 80 % FiO2. Oliguric. Abdomen is distended, and tense. Objective Data Data Vital Signs Date Time Temp Pulse Resp B/P (MAP) Pulse Ox O2 Delivery O2 Flow Rate FiO2 04/30/17 12:00 96.7 99 14 84/63 (70) 96 04/30/17 12:00 99 04/30/17 11:56 96 80 04/30/17 11:14 100 81/53 04/30/17 10:00 106 04/30/17 08:18 95 60 04/30/17 08:00 70 04/30/17 08:00 98.4 93 14 94/59 (71) 98 04/30/17 06:29 70 04/30/17 06:02 90/61 04/30/17 06:00 95 04/30/17 04:00 100 04/30/17 04:00 99 04/30/17 04:00 100 100 04/30/17 04:00 97.6 99 14 84/59 (67) 100 04/30/17 02:00 92 04/30/17 01:15 85/58 04/30/17 01:00 100 100 04/30/17 00:00 93 04/30/17 00:00 93 04/30/17 00:00 100 04/30/17 00:00 97.7 93 14 91/59 (70) 100 04/29/17 23:07 93 95/62 04/29/17 22:00 94 04/29/17 21:42 97 100 04/29/17 20:02 87/54 04/29/17 20:00 96 04/29/17 20:00 97.5 96 14 87/53 (64) 94 04/29/17 20:00 100 04/29/17 19:50 91 100 04/29/17 18:00 96 04/29/17 17:24 100 77/47 04/29/17 16:25 97 100 04/29/17 16:00 98.6 96 80/53 (62) 94 04/29/17 16:00 100 04/29/17 16:00 96 04/29/17 14:00 93 -: 04/30/17 0415 04/30/17 0415 Physical Exam General Appearance: Malnourished Appearance Remarks unresponsive, on the ventilator. Neck Neck Exam: Neck Supple Pulmonary Resp Exam: Rhonchi Resp Remarks bilateral wheezing and rhonchi Cardiology CV Exam: Regular Gastrointestinal/Abdomen GI Remarks abdomen is distended, appears to have tense ascites. Extremeties Extremities Exam: Dependent Edema Assessment/Plan Problem List: (1) Acute kidney injury ICD Codes: N17.9 - Acute kidney failure, unspecified Status: Acute Plan: BOBBI could be due to sepsis, and ATN. Increased renal vein pressure due to tense ascites also will have to be considered. Has not responded to Bumex drip. Prognosis is poor at this time. Avoid nephrotoxins. Unstable for renal replacement therapy. Dialysis will not change outcome. Recommend palliative care and hospice. (2) Severe sepsis ICD Codes: A41.9 - Sepsis, unspecified organism; R65.20 - Severe sepsis without septic shock Status: Acute Plan: Blood culutres negative Being treated for pneumonia and UTI, also may have SBP. Currently on Zosyn, micafungin, Zithromax; he was given Rocephin. Monitor clinically, continue supportive care, vent management per protocol. ID following. (3) Alcohol abuse ICD Codes: F10.10 - Alcohol abuse Status: Chronic Plan: Withdrawal protocol as ordered (4) Hypokalemia ICD Codes: E87.6 - Hypokalemia Plan: Continue to replace Follow labs (5) Metabolic acidosis ICD Codes: E87.2 - Acidosis Plan: monitor. He is being given lactulose, resulting in bicarbonate loss. Renal failure also contributing. Robert Lane MD Apr 30, 2017 13:18
[2017-04-30] MEDS ORDERED: MIDAZOLAM HCL 2 MG/2 ML VIAL IV PUSH ONE (13:30)
[2017-04-30] MEDS ORDERED: MIDAZOLAM 100 MG/100 ML INJ 100 ML IV PRN (13:30)
[2017-04-30 15:35] LABS: POTASSIUM 4.6 MEQ/L (3.5-5.1)
[2017-04-30] MEDS: ALBUMIN 25% INJ 50 ML IV SCH (17:54)
[2017-04-30] MEDS: fentaNYL DRIP 250 ML IV PRN (17:55)
[2017-04-30 20:42] LABS: PERITONEAL HISTIOCYTES 14 %; PERITONEAL LYMPHS 50 %; PERITONEAL MONOS 3 %; PERITONEAL POLYS(SEGS) 33 %; PERITONEAL WBC 168 /MM3 (0-10)
[2017-04-30] MEDS: MICAFUNGIN INJ 150 MG in SODIUM CHLORIDE 0.9% INJ 100 ML IV SCH (22:00)
[2017-05-01] VITALS (28 sets, daily range): BP systolic 80–126; BP diastolic 50–70; PULSE 83–97; RESP 8–23; TEMP 97.3–98.6; O2SAT 93–100
[2017-05-01] MEDS: PIPERACIL-TAZO 3.375 GM PREMIX 50 ML IV SCH ×3 (02:19→18:35)
[2017-05-01] MEDS: FAMOTIDINE 20 MG/2 ML VIAL IV PUSH SCH ×2 (02:20→14:32)
[2017-05-01] MEDS: INSULIN NovoLIN REGULAR SUPPLEMENTAL SCALE SQ SCH ×6 (04:00→19:59)
[2017-05-01] MEDS: CHLORHEXIDINE GLUCONATE 2 % 1 PACK (2 CLOTHS)(taper/protocol) TOPICAL SCH (04:00)
[2017-05-01] MEDS: BUMETANIDE INJ 1 MG/4 ML VIAL IV PUSH SCH ×3 (04:18→19:58)
[2017-05-01] MEDS: VASOPRESSIN INJ 40 UNITS in DEXTROSE 5% IN WATER 100ML INJ 98 ML IV SCH ×4 (04:25→20:00)
[2017-05-01 04:51] LABS: AUTOMATED NEUTROPHIL # 20.4 TH/MM3 (1.8-7.7); BASOPHIL # 0.1 TH/MM3 (0-0.2); BASOPHIL % 0.2 % (0.0-2.0); HEMATOCRIT 33.2 % (39.0-51.0); LYMPH % 6.7 % (9.0-44.0); LYMPHOCYTE # 1.6 TH/MM3 (1.0-4.8); MEAN CELL VOLUME 91.4 FL (80.0-100.0); MEAN CORPUSCULAR HEMOGLOBIN 28.1 PG (27.0-34.0); MEAN CORPUSCULAR HGB CONC 30.7 % (32.0-36.0); MONO % 5.5 % (0.0-8.0); NEUT % 87.6 % (16.0-70.0); PLATELET COUNT 73 TH/MM3 (150-450); RED BLOOD COUNT 3.63 MIL/MM3 (4.50-5.90); RED CELL DISTRIBUTION WIDTH 14.2 % (11.6-17.2); WHITE BLOOD COUNT 23.3 TH/MM3 (4.0-11.0)
[2017-05-01 05:21] LABS: BICARBONATE 20.4 MEQ/L (21.0-32.0); CALCIUM-PROTEIN CORRECTED 7.5 MG/DL (8.5-10.1); POTASSIUM 4.6 MEQ/L (3.5-5.1); TOTAL BILIRUBIN ADULT 4.1 MG/DL (0.2-1.0)
[2017-05-01 06:07] LABS: BANDS 7 % (0-6); POLYS (SEG NEUTROPHILS) 86 % (16-70); WBC DIFF SAMPLE 100
[2017-05-01 06:08] LABS: PLATELET ESTIMATE SMEAR LOW (NORMAL); PLATELET MORPHOLOGY ENLARGED (NORMAL); SCAN/DIFF FINAL DIFF MANUAL
[2017-05-01 06:15] LABS: HEMO FLAGS AUTO DIFF; NEUTROPHIL # MANUAL DIFF 21.7 TH/MM3 (1.8-7.7)
[2017-05-01] MEDS: ALBUMIN 25% INJ 50 ML IV SCH ×2 (06:43→18:35)
[2017-05-01] MEDS: CALCIUM CARBONATE 1.25 GM (CA 500 MG) TAB PO SCH ×2 (09:11→19:58)
[2017-05-01] MEDS: SODIUM CHLORIDE 0.9% FLUSH 10 ML FLUSH IV FLUSH SCH ×2 (09:11→19:59)
[2017-05-01] MEDS: FOLIC ACID 1 MG TAB PO SCH (09:11)
[2017-05-01] MEDS: THIAMINE HCL 100 MG TAB PO SCH (09:11)
[2017-05-01] MEDS: DOCUSATE SODIUM 50 MG/SENNA 8.6 MG TAB PO SCH ×2 (09:11→19:58)
[2017-05-01] MEDS: AZITHROMYCIN 250 MG TAB PO SCH (09:11)
[2017-05-01] MEDS: LACTULOSE SYRUP 20 GM/30 ML CUP PO SCH ×4 (09:11→19:58)
[2017-05-01] MEDS: RIFAXIMIN 550 MG TAB PO SCH ×2 (09:11→19:58)
[2017-05-01] MEDS: MULTIVITAMIN TAB PO SCH (09:12)
[2017-05-01] MEDS: HYDROCORTISONE SOD SUCCINATE 100 MG VIAL IV PUSH SCH ×2 (09:12→19:58)
[2017-05-01] MEDS: NOREPINEPHRINE 4 MG/D5W 250 ML IV PRN (09:13)
--- NOTE | 2017-05-01 11:17 | HHI.NPPN ---
Subjective History of Present Illness Cnlbbyt-imof-ygs male acute renal failure, cirrhosis of the liver, alcohol abuse with hypotension on vasopressin had paracenteses 4 L removed on 04/27 Objective Data Data 05/01/17 05/02/17 19:00 07:00 Intake Total 395 ml Balance 395 ml Intake IV Total 395 ml Vital Signs Date Time Temp Pulse Resp B/P (MAP) Pulse Ox O2 Delivery O2 Flow Rate FiO2 05/01/17 10:00 90 05/01/17 09:17 40 05/01/17 09:13 92 103/64 05/01/17 08:27 100 40 05/01/17 08:00 98.6 92 8 96/63 (74) 100 05/01/17 08:00 40 05/01/17 08:00 92 05/01/17 06:00 94 05/01/17 04:00 91 05/01/17 04:00 40 05/01/17 04:00 97.3 91 103/57 (72) 100 05/01/17 03:51 99 40 05/01/17 02:00 95 05/01/17 01:51 100 50 05/01/17 00:00 97 05/01/17 00:00 97.3 97 86/53 (64) 100 05/01/17 00:00 50 04/30/17 23:12 100 60 04/30/17 22:00 100 04/30/17 20:00 105 04/30/17 20:00 97.5 105 82/54 (63) 100 04/30/17 20:00 70 04/30/17 19:55 100 70 04/30/17 18:00 99 04/30/17 16:00 100 04/30/17 16:00 96.6 100 14 91/52 (65) 95 04/30/17 16:00 100 04/30/17 15:54 96 100 04/30/17 14:00 101 78/53 04/30/17 14:00 101 04/30/17 12:00 96.7 99 14 84/63 (70) 96 04/30/17 12:00 99 04/30/17 12:00 80 04/30/17 11:56 96 80 04/30/17 11:14 100 81/53 -: 05/01/17 0415 05/01/17 0415 Microbiology 04/30/17 Gram Stain - Final, Resulted 04/30/17 Body Fluid Culture - Preliminary, Resulted NO GROWTH IN 24 HOURS. Physical Exam General Appearance: Malnourished Neck Neck Exam: Neck Supple Pulmonary Resp Exam: Rhonchi Cardiology CV Exam: Regular Extremeties Extremities Exam: Dependent Edema Assessment/Plan Problem List: (1) Acute kidney injury ICD Codes: N17.9 - Acute kidney failure, unspecified Status: Acute Plan: BOBBI could be due to sepsis, and ATN. Patient is an hepatorenal syndrome for urine output start Sandostatin 50 mcg every 8 hours Has not responded to Bumex drip. Prognosis is poor at this time. Avoid nephrotoxins. Unstable for renal replacement therapy. Dialysis will not change outcome. Recommend palliative care and hospice. Dr. Lane to follow (2) Severe sepsis ICD Codes: A41.9 - Sepsis, unspecified organism; R65.20 - Severe sepsis without septic shock Status: Acute Plan: Blood culutres negative Being treated for pneumonia and UTI, also may have SBP. Currently on Zosyn, micafungin, Zithromax; he was given Rocephin. Monitor clinically, continue supportive care, vent management per protocol. ID following. (3) Alcohol abuse ICD Codes: F10.10 - Alcohol abuse Status: Chronic Plan: Withdrawal protocol as ordered (4) Hypokalemia ICD Codes: E87.6 - Hypokalemia Plan: Continue to replace Follow labs (5) Metabolic acidosis ICD Codes: E87.2 - Acidosis Plan: monitor. He is being given lactulose, resulting in bicarbonate loss. Renal failure also contributing. Clifton Rodgers MD May 01, 2017 11:16
[2017-05-01] MEDS: SODIUM CHLORIDE 0.9% FLUSH 10 ML FLUSH IV FLUSH PRN (11:45)
--- NOTE | 2017-05-01 13:29 | HHI.CCPN ---
Subjective Remarks/Hospital Course Patient is a 61-year-old male with past medical history of EtOH abuse, chronic obstructive pulmonary disease, seizure disorder, cerebrovascular accident, who presented to [facility] emergency department earlier this morning via EMS, under supposedly a [place] acted. The patient told the academic records specialist of the [facility] where he is staying that he wants to commit suicide. The police were called and the patient was brought in to the hospital. On arrival to the emergency department he was found to have leukocytosis with a WBC of 21.6 and was in renal failure with creatinine of 2.51. The patient also had mild lactic acidemia with elevated lactic acid level 2.4 and elevated AST: 121 with total bilirubin 2.9. He had an ABG done this morning on 4 liters oxygen was which showed a pH of 7.34, CO2 28 and pAO2 135, bicarb 15, saturation 96%. Chest x-ray In the ER showed mild interstitial past is in the upper left lung. He also had CT abdomen and pelvis done which showed severe ascites along with steatosis of the liver and right inguinal hernia. [facility]. Critical care medicine was consulted for critical care management. When seen in ICU the patient was lethargic, unresponsive. He was subsequently intubated and placed on mechanical ventilation for airway protection. In the ICU the patient was hypotensive with systolic blood pressure in the 90s, A right IJ emergent central line was placed. 04/28 Patient is intubated off sedation started on Levophed yesterday 12 mics. s /p CT guided paracentesis with removal 4L. 04/29 Patient remains intubated and sedated with Fentanyl drip. Levophed down 7 mics, vasopressin added yesterday. Afebrile. On Bicarb drip. 04/30 Patient remains sedated with Fentanyl and intubated. Required increase FIO2/PEEP overnight given additional Bumex 2mg IV x1. CXR yesterday showed diffuse b/l pulm infiltrates. Levophed down to 5 mics, off Vasopressin. 05/01 Patient remains intubated off sedation Levophed down 3 mics. s/p paracentesis at bedside yesterday with removal 4L. Afebrile. Renal function worse today with Cr: 2.40 from 2.09. Objective Vital Signs Date Time Temp Pulse Resp B/P (MAP) Pulse Ox O2 Delivery O2 Flow Rate FiO2 05/01/17 12:57 99 40 05/01/17 11:45 90 107/65 05/01/17 08:00 98.6 8 04/29/17 08:01 Ventilator 04/27/17 07:36 4.00 Intake and Output 05/01/17 05/01/17 05/02/17 08:00 16:00 00:00 Intake Total 50 ml 395 ml Output Total 180 ml Balance -130 ml 395 ml Result Diagram: 05/01/17 0415 05/01/17 0415 Other Results Laboratory Tests Test 04/30/17 13:50 04/30/17 17:25 05/01/17 04:15 Blood Urea Nitrogen 35 MG/DL 38 MG/DL Creatinine 2.09 MG/DL 2.40 MG/DL Random Glucose 128 MG/DL 157 MG/DL Calcium Level 7.6 MG/DL 6.9 MG/DL Sodium Level 143 MEQ/L 143 MEQ/L Potassium Level 4.6 MEQ/L 4.6 MEQ/L Chloride Level 114 MEQ/L 112 MEQ/L Carbon Dioxide Level 17.0 MEQ/L 20.4 MEQ/L Anion Gap 12 MEQ/L 11 MEQ/L Estimat Glomerular Filtration Rate 32 ML/MIN 27 ML/MIN Peritoneal Fluid WBC 168 /MM3 Peritoneal Fluid RBC 128 /MM3 Peritoneal Fluid Neutrophils 33 % Peritoneal Fluid Lymphocytes 50 % Peritoneal Fluid Monocytes 3 % Peritoneal Fluid Histiocytes 14 % Peritoneal Fluid Total Protein 0.6 GM/DL Peritoneal Fluid LDH 61 U/L Peritoneal Fluid Glucose 142 MG/DL White Blood Count 23.3 TH/MM3 Red Blood Count 3.63 MIL/MM3 Hemoglobin 10.2 GM/DL Hematocrit 33.2 % Mean Corpuscular Volume 91.4 FL Mean Corpuscular Hemoglobin 28.1 PG Mean Corpuscular Hemoglobin Concent 30.7 % Red Cell Distribution Width 14.2 % Platelet Count 73 TH/MM3 Mean Platelet Volume 10.3 FL Neutrophils (%) (Auto) 87.6 % Lymphocytes (%) (Auto) 6.7 % Monocytes (%) (Auto) 5.5 % Eosinophils (%) (Auto) 0.0 % Basophils (%) (Auto) 0.2 % Neutrophils # (Auto) 20.4 TH/MM3 Lymphocytes # (Auto) 1.6 TH/MM3 Monocytes # (Auto) 1.3 TH/MM3 Eosinophils # (Auto) 0.0 TH/MM3 Basophils # (Auto) 0.1 TH/MM3 CBC Comment AUTO DIFF Differential Total Cells Counted 100 Neutrophils % (Manual) 86 % Band Neutrophils % 7 % Lymphocytes % 3 % Monocytes % 4 % Neutrophils # (Manual) 21.7 TH/MM3 Differential Comment FINAL DIFF MANUAL Platelet Estimate LOW Platelet Morphology Comment ENLARGED Polychromasia 2.0 % Basophilic Stippling FAINT Total Protein 5.9 GM/DL Albumin 1.5 GM/DL Alkaline Phosphatase 112 U/L Aspartate Amino Transf (AST/SGOT) 167 U/L Alanine Aminotransferase (ALT/SGPT) 45 U/L Total Bilirubin 4.1 MG/DL Protein Corrected Calcium 7.5 MG/DL Imaging Last Impressions Chest X-Ray 04/30/17 0000 Signed Impressions: Service Date/Time: Sunday, April 30, 2017 07:04 - CONCLUSION: 1. Stable tubes and lines, as above. 2. Continued diffuse bilateral interstitial and alveolar opacities with slight increase consolidation in the right lower lung zone. Wallace Cordoba MD Abdomen Ultrasound 04/30/17 0000 Signed Impressions: Service Date/Time: Sunday, April 30, 2017 11:40 - CONCLUSION: Moderate ascites is still present. Jesus Duncan MD Paracentesis 04/27/17 1452 Signed Impressions: Service Date/Time: Thursday, April 27, 2017 15:51 - CONCLUSION: 1. One complicated CT-guided paracentesis. 2. Profound hepatic steatosis. Wallace Cordoba MD Head CT 04/27/17 0000 Signed Impressions: Service Date/Time: Thursday, April 27, 2017 15:44 - CONCLUSION: Diffuse atrophy is present. Areas of encephalomalacia involving the right temporal tip and the left orbitofrontal cortices. No evidence of acute hemorrhage or edema Jesus Duncan MD Abdomen/Pelvis CT 04/26/17 7524 Signed Impressions: Service Date/Time: Wednesday, April 26, 2017 21:23 - CONCLUSION: 1. Severe abdomino-pelvic ascites. 2. Steatosis of the liver. 3. Right inguinal hernia. Cliff Lugo MD Objective Remarks GENERAL: Patient is 61 yo critically ill intubated and on Levophed SKIN: Warm and dry. HEAD: Normocephalic. EYES: No scleral icterus. No injection or drainage. NECK: Supple, trachea midline. No JVD or lymphadenopathy. CARDIOVASCULAR: Regular rate and rhythm without murmurs, gallops, or rubs. RESPIRATORY: Breath sounds equal bilaterally. No accessory muscle use. GASTROINTESTINAL: non-tender, distended. MUSCULOSKELETAL: No cyanosis, or edema. Neuro: Intubated A/P Assessment and Plan 1. VDRF 2. Encephalopathy. 3. Leukocytosis 4. Ascites rule out SBP 5. Acute kidney injury. 6. Urinary tract infection. 7. Hypokalemia. 8. Lactic acidemia 9. Elevated AST. 10. ETOH abuse. 11. History of cerebrovascular accident and seizure disorder. 12. History of chronic obstructive pulmonary disease. Plan Neuro: fentanyl infusion if needed for sedation. Monitor neuro status. Daily sedation vacation. 04/27: EEG Mild- mod slowing. No epileptiform features. 04/27: CT brain: No acute findings On Lactulose 30ml QID, Rifaximin 550mg BID, check Ammonia level ( trending down) On Thiamine, MVI, folic acid Pulm: On ACV RR 14, TV 400, PEEP:14, FIO2 100%. Decrease FIO2 as cheryl. Continue with vent support and maintain sats above 92%. Bronchodilators, ICU vent bundle. SBT trials as cheryl check CXR Improvements in his O2 requirements post paracentesis yesterday. CV: Continue to wean off Levophed maintain MAP > 65 mmHg. Serial lactic acid monitoring. Lactic acid 2.8. For 2D echo Hydrocortisone- HC 50mg IV Q12 : Monitor renal function Is and Os and avoid nephrotoxins. Renal function worse today with Cr: 2.40 from 2.03, UOP: 550ml in 24 hrs Renal- Dr. Lane. Decrease Bumex 1mg Q12 CT scan of the abdomen and pelvis showed no evidence of hydronephrosis, masses or stones. GI: On tube feeds- Nepro advance to goal rate 40 ml/hr, on Pepcid 10 mg IV q. 12 for GI prophylaxis Monitor LFT's, s/p CT guided paracentesis with removal 4 on 04/27 and repeat Paracentesis at bedside on 04/30 with 4L removal. Continue with albumin.. Follow up on fluid cx- NGTD ID: Continue with abx per ID ( On Zosyn, Micafungin, Vanco, Azithromycin) monitor for signs of infections Follow up on blood cultures Urine culture: E.coli Heme: Monitor CBC GI prophylaxis with Pepcid 10 mg IV q. 12 and DVT prophylaxis with SCDs. Endo: SSI for glucemic control Lines: Right IJ central line placed 04/27 Patient is critically ill with sepsis, resp failure , renal failure, encephalopathy and UTI. Palliative care consult to asses with goals of care. Level 3 Sonny Khan MD May 01, 2017 13:29
[2017-05-01] MEDS: OCTREOTIDE INJ 50 MCG/ML AMP IV PUSH SCH ×2 (14:00→22:00)
--- NOTE | 2017-05-01 14:22 | RADRPT ---
EXAM DATE/TIME: 05/01/2017 13:45 [facility] COMPARISON: CHEST SINGLE AP, April 30, 2017, 7:04. INDICATIONS : Ventilator dependent respiratory failure. MEDICAL HISTORY : Chronic obstructive pulmonary disease. Myocardial infarction. Seizures. SURGICAL HISTORY : right ORIF hip. ENCOUNTER: Subsequent ACUITY: 1 week PAIN SCORE: Non-responsive. LOCATION: Bilateral chest FINDINGS: Endotracheal tube in good position. Nasogastric tube enters stomach. Right central line in superior v mel cava. Bilateral airspace disease in the lungs. No significant effusion. No pneumothorax. CONCLUSION: 1. Support apparatus unchanged. Bilateral airspace disease in the lungs not significantly changed. Galileo Mead MD on May 01, 2017 at 14:18 Board Certified Radiologist. This report was verified electronically.
[2017-05-01 15:08] LABS: C. DIFF EPI 027 PRESUMPTIVE NEGATIVE (NEGATIVE)
[2017-05-01] MEDS: MICAFUNGIN INJ 150 MG in SODIUM CHLORIDE 0.9% INJ 100 ML IV SCH (20:00)
[2017-05-02] VITALS (18 sets, daily range): BP systolic 107–121; BP diastolic 65–73; PULSE 82–96; RESP 8–12; TEMP 97.6–98.9; O2SAT 94–100
[2017-05-02] MEDS: PIPERACIL-TAZO 3.375 GM PREMIX 50 ML IV SCH ×3 (00:37→17:30)
[2017-05-02] MEDS: FAMOTIDINE 20 MG/2 ML VIAL IV PUSH SCH ×2 (00:37→13:57)
[2017-05-02] MEDS: CHLORHEXIDINE GLUCONATE 2 % 1 PACK (2 CLOTHS)(taper/protocol) TOPICAL SCH (04:00)
[2017-05-02] MEDS: INSULIN NovoLIN REGULAR SUPPLEMENTAL SCALE SQ SCH ×6 (04:00→20:00)
[2017-05-02] MEDS: BUMETANIDE INJ 1 MG/4 ML VIAL IV PUSH SCH (04:54)
[2017-05-02] MEDS: OCTREOTIDE INJ 50 MCG/ML AMP IV PUSH SCH ×3 (04:55→20:36)
[2017-05-02] MEDS: ALBUMIN 25% INJ 50 ML IV SCH ×2 (04:55→17:30)
[2017-05-02] MEDS: NOREPINEPHRINE 4 MG/D5W 250 ML IV PRN (05:03)
[2017-05-02 05:57] LABS: AUTOMATED NEUTROPHIL # 21.9 TH/MM3 (1.8-7.7); BASOPHIL # 0.1 TH/MM3 (0-0.2); BASOPHIL % 0.2 % (0.0-2.0); HEMATOCRIT 30.1 % (39.0-51.0); LYMPH % 4.9 % (9.0-44.0); LYMPHOCYTE # 1.2 TH/MM3 (1.0-4.8); MEAN CELL VOLUME 91.1 FL (80.0-100.0); MEAN CORPUSCULAR HEMOGLOBIN 29.1 PG (27.0-34.0); MEAN CORPUSCULAR HGB CONC 31.9 % (32.0-36.0); MONO % 5.5 % (0.0-8.0); NEUT % 89.4 % (16.0-70.0); PLATELET COUNT 60 TH/MM3 (150-450); RED CELL DISTRIBUTION WIDTH 13.7 % (11.6-17.2); WHITE BLOOD COUNT 24.6 TH/MM3 (4.0-11.0)
[2017-05-02 06:00] LABS: HEMO FLAGS DIFF FINAL
[2017-05-02 06:28] LABS: BICARBONATE 22.1 MEQ/L (21.0-32.0); CALCIUM-PROTEIN CORRECTED 8.1 MG/DL (8.5-10.1); POTASSIUM 3.6 MEQ/L (3.5-5.1); TOTAL BILIRUBIN ADULT 4.3 MG/DL (0.2-1.0)
[2017-05-02] MEDS ORDERED: BUMETANIDE INJ 100 ML IV SCH (07:52)
[2017-05-02] MEDS ORDERED: BUMETANIDE INJ 1 MG/4 ML VIAL IV PUSH ONE (08:00)
[2017-05-02] MEDS: FREE WATER G-TUBE SCH ×3 (08:00→20:36)
--- NOTE | 2017-05-02 08:08 | HHI.CCPN ---
Subjective Remarks/Hospital Course Patient is a 61-year-old male with past medical history of EtOH abuse, chronic obstructive pulmonary disease, seizure disorder, cerebrovascular accident, who presented to [facility] emergency department earlier this morning via EMS, under supposedly a Dwyer acted. The patient told the owner e commerce company of the Hotel where he is staying that he wants to commit suicide. The police were called and the patient was brought in to the hospital. On arrival to the emergency department he was found to have leukocytosis with a WBC of 21.6 and was in renal failure with creatinine of 2.51. The patient also had mild lactic acidemia with elevated lactic acid level 2.4 and elevated AST: 121 with total bilirubin 2.9. He had an ABG done this morning on 4 liters oxygen was which showed a pH of 7.34, CO2 28 and pAO2 135, bicarb 15, saturation 96%. Chest x-ray In the ER showed mild interstitial past is in the upper left lung. He also had CT abdomen and pelvis done which showed severe ascites along with steatosis of the liver and right inguinal hernia. [facility] was transferred to ICU. Critical care medicine was consulted for critical care management. When seen in ICU the patient was lethargic, unresponsive. He was subsequently intubated and placed on mechanical ventilation for airway protection. In the ICU the patient was hypotensive with systolic blood pressure in the 90s, A right IJ emergent central line was placed. 04/28 Patient is intubated off sedation started on Levophed yesterday 12 mics. s /p CT guided paracentesis with removal 4L. 04/29 Patient remains intubated and sedated with Fentanyl drip. Levophed down 7 mics, vasopressin added yesterday. Afebrile. On Bicarb drip. 04/30 Patient remains sedated with Fentanyl and intubated. Required increase FIO2/PEEP overnight given additional Bumex 2mg IV x1. CXR yesterday showed diffuse b/l pulm infiltrates. Levophed down to 5 mics, off Vasopressin. 05/01 Patient remains intubated off sedation Levophed down 3 mics. s/p paracentesis at bedside yesterday with removal 4L. Afebrile. Renal function worse today with Cr: 2.40 from 2.09. 05/02 No events overnight. Sedated with fentanyl and intubated, On Levophed 2mics. Tolerated CPAP for several hrs.. Cr: 2.28 from 2.4 Objective Vital Signs Date Time Temp Pulse Resp B/P (MAP) Pulse Ox O2 Delivery O2 Flow Rate FiO2 05/02/17 06:00 86 05/02/17 05:03 108/66 05/02/17 04:15 97 40 05/02/17 04:00 98.2 05/01/17 20:00 14 04/29/17 08:01 Ventilator Intake and Output 05/02/17 05/02/17 05/03/17 08:00 16:00 00:00 Intake Total 1210 ml Output Total 1520 ml Balance -310 ml Result Diagram: 05/02/1730 05/02/17529 Other Results Laboratory Tests Test 05/01/17 14:25 05/02/17 05:30 Ammonia 29 MCMOL/L White Blood Count 24.6 TH/MM3 Red Blood Count 3.30 MIL/MM3 Hemoglobin 9.6 GM/DL Hematocrit 30.1 % Mean Corpuscular Volume 91.1 FL Mean Corpuscular Hemoglobin 29.1 PG Mean Corpuscular Hemoglobin Concent 31.9 % Red Cell Distribution Width 13.7 % Platelet Count 60 TH/MM3 Mean Platelet Volume 11.6 FL Neutrophils (%) (Auto) 89.4 % Lymphocytes (%) (Auto) 4.9 % Monocytes (%) (Auto) 5.5 % Eosinophils (%) (Auto) 0.0 % Basophils (%) (Auto) 0.2 % Neutrophils # (Auto) 21.9 TH/MM3 Lymphocytes # (Auto) 1.2 TH/MM3 Monocytes # (Auto) 1.4 TH/MM3 Eosinophils # (Auto) 0.0 TH/MM3 Basophils # (Auto) 0.1 TH/MM3 CBC Comment DIFF FINAL Differential Comment Blood Urea Nitrogen 45 MG/DL Creatinine 2.28 MG/DL Random Glucose 131 MG/DL Total Protein 5.9 GM/DL Albumin 1.7 GM/DL Calcium Level 7.4 MG/DL Alkaline Phosphatase 101 U/L Aspartate Amino Transf (AST/SGOT) 129 U/L Alanine Aminotransferase (ALT/SGPT) 47 U/L Total Bilirubin 4.3 MG/DL Sodium Level 146 MEQ/L Potassium Level 3.6 MEQ/L Chloride Level 114 MEQ/L Carbon Dioxide Level 22.1 MEQ/L Anion Gap 10 MEQ/L Estimat Glomerular Filtration Rate 29 ML/MIN Protein Corrected Calcium 8.1 MG/DL Imaging Last Impressions Chest X-Ray 05/01/17 0000 Signed Impressions: Service Date/Time: Monday, May 01, 2017 13:45 - CONCLUSION: 1. Support apparatus unchanged. Bilateral airspace disease in the lungs not significantly changed. Galileo Mead MD Abdomen Ultrasound 04/30/17 0000 Signed Impressions: Service Date/Time: Sunday, April 30, 2017 11:40 - CONCLUSION: Moderate ascites is still present. Jesus Duncan MD Paracentesis 04/27/17 1452 Signed Impressions: Service Date/Time: Thursday, April 27, 2017 15:51 - CONCLUSION: 1. One complicated CT-guided paracentesis. 2. Profound hepatic steatosis. Wallace Cordoba MD Head CT 04/27/17 0000 Signed Impressions: Service Date/Time: Thursday, April 27, 2017 15:44 - CONCLUSION: Diffuse atrophy is present. Areas of encephalomalacia involving the right temporal tip and the left orbitofrontal cortices. No evidence of acute hemorrhage or edema Jesus Duncan MD Abdomen/Pelvis CT 04/26/17 1724 Signed Impressions: Service Date/Time: Wednesday, April 26, 2017 21:23 - CONCLUSION: 1. Severe abdomino-pelvic ascites. 2. Steatosis of the liver. 3. Right inguinal hernia. Cliff Lugo MD Objective Remarks GENERAL: Patient is 61 yo critically ill intubated and on Levophed SKIN: Warm and dry. HEAD: Normocephalic. EYES: No scleral icterus. No injection or drainage. NECK: Supple, trachea midline. No JVD or lymphadenopathy. CARDIOVASCULAR: Regular rate and rhythm without murmurs, gallops, or rubs. RESPIRATORY: Breath sounds equal bilaterally. No accessory muscle use. GASTROINTESTINAL: non-tender, distended. MUSCULOSKELETAL: No cyanosis, or edema. Neuro: Intubated A/P Assessment and Plan 1. VDRF 2. Encephalopathy. 3. Leukocytosis 4. Ascites rule out SBP 5. Acute kidney injury. 6. Urinary tract infection. 7. Hypokalemia. 8. Lactic acidemia 9. Elevated AST. 10. ETOH abuse. 11. History of cerebrovascular accident and seizure disorder. 12. History of chronic obstructive pulmonary disease. Plan Neuro: fentanyl infusion if needed for sedation. Monitor neuro status. Daily sedation vacation. 04/27: EEG Mild- mod slowing. No epileptiform features. 04/27: CT brain: No acute findings On Lactulose 30ml QID, Rifaximin 550mg BID, Ammonia level trending down On Thiamine, MVI, folic acid Check MRI brain, Neuro eval. Pulm: On ACV RR 14, TV 400, PEEP:14, FIO2 100%. Decrease FIO2 as cheryl. Continue with vent support and maintain sats above 92%. Bronchodilators, ICU vent bundle. SBT trials as cheryl Check ABG Improvements in his O2 requirements post paracentesis 04/30 CV: Continue to wean off Levophed maintain MAP > 65 mmHg. Serial lactic acid monitoring. Lactic acid 2.8. For 2D echo Hydrocortisone- HC 50mg IV Q12 : Monitor renal function Is and Os and avoid nephrotoxins. Renal function worse today with Cr: 2.40 from 2.03, UOP: 550ml in 24 hrs Renal- Dr. Lane.On Bumex 1mg Q12. Place on Free water 250ml Q12 CT scan of the abdomen and pelvis showed no evidence of hydronephrosis, masses or stones. GI: On tube feeds- Nepro @40 ml/hr, on Pepcid 10 mg IV q. 12 for GI prophylaxis Monitor LFT's, s/p CT guided paracentesis with removal 4 on 04/27 and repeat Paracentesis at bedside on 04/30 with 4L removal. Continue with albumin.. Follow up on fluid cx- NGTD. Check sputum cx ID: Continue with abx per ID ( On Zosyn, Micafungin, Vanco, Azithromycin) monitor for signs of infections Follow up on blood cultures Urine culture: E.coli Heme: Monitor CBC GI prophylaxis with Pepcid 10 mg IV q. 12 and DVT prophylaxis with SCDs. Endo: SSI for glucemic control Lines: Right IJ central line placed 04/27 Patient is critically ill with sepsis, resp failure , renal failure, encephalopathy and UTI. Palliative care consult to asses with goals of care. Level 3 Sonny Khan MD May 02, 2017 08:08
[2017-05-02 08:28] LABS: BLOOD GAS BASE EXCESS -4.4 mmol/L (-2-2); BLOOD GAS CARBOXYHEMOGLOBIN 1.2 % (0-4); BLOOD GAS HCO3 20 mmol/L (22-26); BLOOD GAS METHEMOGLOBIN 1.2 % (0-2); BLOOD GAS O2 HGB SATURATION 92 % (90-100); BLOOD GAS OXYGEN CONTENT 12.8 Vol % (12.0-20.0); BLOOD GAS PCO2 34 mmHg (38-42); BLOOD GAS PO2 79 mmHg (61-120); BLOOD GAS TOTAL HGB 9.8 G/DL (12.0-16.0); TEMP CORR TO 98.6
[2017-05-02 08:29] LABS: CRITICAL VALUE NO; DRAW SITE LT RADIAL; FIO2 40 %; NUMBER OF ARTERIAL PUNCTURES 1; OXYGEN DEVICE VENTILATOR; STAT NO; ULNAR PULSE PRESENT; VENT SETTINGS CPAP 5/10PS
[2017-05-02] MEDS: FOLIC ACID 1 MG TAB PO SCH (08:32)
[2017-05-02] MEDS: RIFAXIMIN 550 MG TAB PO SCH ×2 (08:32→20:35)
[2017-05-02] MEDS: SODIUM CHLORIDE 0.9% FLUSH 10 ML FLUSH IV FLUSH SCH ×2 (08:32→20:35)
[2017-05-02] MEDS: DOCUSATE SODIUM 50 MG/SENNA 8.6 MG TAB PO SCH ×2 (08:32→20:35)
[2017-05-02] MEDS: AZITHROMYCIN 250 MG TAB PO SCH (08:32)
[2017-05-02] MEDS: LACTULOSE SYRUP 20 GM/30 ML CUP PO SCH ×4 (08:32→20:35)
[2017-05-02] MEDS: CALCIUM CARBONATE 1.25 GM (CA 500 MG) TAB PO SCH ×2 (08:33→20:35)
[2017-05-02] MEDS: THIAMINE HCL 100 MG TAB PO SCH (08:33)
[2017-05-02] MEDS: MULTIVITAMIN TAB PO SCH (08:33)
[2017-05-02] MEDS: HYDROCORTISONE SOD SUCCINATE 100 MG VIAL IV PUSH SCH ×2 (08:33→20:35)
[2017-05-02] MEDS: SODIUM CHLORIDE 0.9% FLUSH 10 ML FLUSH IV FLUSH PRN (08:34)
--- NOTE | 2017-05-02 11:59 | MB ---
cc: ZANDER WARE M.D. DATE OF CONSULTATION: 05/02/2017. REASON FOR CONSULTATION: Mental status change. HISTORY OF PRESENT ILLNESS: Mr. Goode is a 61-year-old man who was admitted by Reymundo Barrientos to the emergency room with symptoms of alcohol withdrawal who suddenly became unresponsive. He has been intubated since. It is thought that he has been septic with acute renal failure. He did have a CT of the brain done on 04/27, which revealed no acute change. There is encephalomalacia identified in the right temporal tip and left orbital frontal region. His EEG has revealed mild slowing. In spite of holding sedation however he has not been waking up. He has not been responsive. He is not having any tonic clonic activity. No focal deficits. CURRENT MEDICATIONS: His current medications are: 1. Bumex 1 milligram twice a day. 2. Octreotide 15 micrograms IV q. 8 hours. 3. Thiamine 100 milligrams daily. 4. Hydrocortisone 50 milligrams IV q. 12 hours. 5. Rifaximine ____ milligrams twice a day. 6. Lactulose 30 cc four times a day. 7. Insulin sliding scale as needed. 8. Pepcid 10 milligrams IV twice a day. 9. Folate 1 milligram daily. 10. Piperacillin. 11. Zithromax. 12. Narcan PRN. NEUROLOGICAL EXAMINATION: VITAL SIGNS: Temperature is 97.7 degrees, blood pressure 116/68, pulse is 87, respiratory rate 10. HIGHER CORTICAL FUNCTIONS: The patient is off sedation but not responsive. He does not respond to sternal rub or to voice. CRANIAL NERVES: The pupils are 2 mm symmetric and reactive. Extraocular movements intact to doll's eyes. NECK: His neck is supple. There is no meningismus. MOTOR EXAM: He has no spontaneous limb movement, although he does withdraw both legs to tactile stimulation. REFLEXES: 1+ symmetric. He does have bilateral Babinski present. IMAGING STUDIES: CT of the brain is as noted above with encephalomalacia in the right temporal tip and left orbital frontal cortex but no acute change. LABS: The urinalysis pH is 5, specific gravity 1.019, protein is 30, small amount of occult blood present. There are 18 WBCs, 2 RBCs. CBC: White count is 25,600, hemoglobin is 9.6, hematocrit 30%, platelet count is 60,000. PT is 16.2, INR 1.4, APTT 38.9. Sodium is 146, potassium 3.6, chloride 114, carbon dioxide 22, BUN is 45, creatinine 2.28, GFR 29, calcium is 7.4. AST 129, ALT 47. Ammonia 29. Blood culture has no growth so far in five days. Urine culture is growing E coli. IMPRESSION: Probable metabolic encephalopathy from renal failure sepsis. At this time, he is not running any fevers. He has no sign of nuchal rigidity to suggest YARDER infection. He does have a coagulopathy, probably from his renal failure, which would pose a risk for a lumbar puncture. Therefore, would not recommend lumbar puncture presently. I agree with obtaining MRI of the brain to rule out any other etiology such as stroke. Will also repeat the EEG to be sure he is not having any ictal activity. MD SIMRAN Wilson/RAFAEL /11:19 AM /11:50 AM
--- NOTE | 2017-05-02 12:05 | HHI.NPPN ---
Subjective History of Present Illness [id number] male acute renal failure, cirrhosis of the liver, alcohol abuse with hypotension on vasopressin had paracenteses 4 L removed on 04/27 Objective Data Data Vital Signs Date Time Temp Pulse Resp B/P (MAP) Pulse Ox O2 Delivery O2 Flow Rate FiO2 05/02/17 10:00 82 05/02/17 08:00 97.7 87 10 121/66 (84) 98 05/02/17 08:00 40 05/02/17 08:00 87 05/02/17 08:00 90 115/68 05/02/17 07:56 40 05/02/17 07:56 94 40 05/02/17 06:00 86 05/02/17 05:03 88 108/66 05/02/17 04:15 97 40 05/02/17 04:00 40 05/02/17 04:00 86 05/02/17 04:00 98.2 83 113/67 (82) 97 05/02/17 02:00 82 05/02/17 00:00 83 05/02/17 00:00 98.9 83 115/69 (84) 97 05/02/17 00:00 40 05/01/17 23:05 99 40 05/01/17 22:00 84 05/01/17 20:38 99 40 05/01/17 20:00 97.8 86 14 108/70 (83) 98 05/01/17 20:00 83 05/01/17 20:00 40 05/01/17 19:00 94 113/71 05/01/17 18:00 86 05/01/17 16:00 40 05/01/17 16:00 86 05/01/17 16:00 97.7 86 23 103/60 (74) 98 05/01/17 15:53 98 40 05/01/17 14:31 94 119/68 (85) 93 05/01/17 14:15 90 82/51 (61) 97 05/01/17 14:00 91 86/52 (63) 96 05/01/17 14:00 91 05/01/17 13:45 88 80/51 (61) 97 05/01/17 13:30 91 81/50 (60) 97 05/01/17 13:24 90 126/66 (86) 96 05/01/17 13:00 90 102/62 (75) 96 05/01/17 12:57 99 40 05/01/17 12:45 86 90/55 (67) 98 05/01/17 12:30 88 98/59 (72) 96 05/01/17 12:15 88 95/58 (70) 96 -: 05/02/17 0530 05/02/17 0530 Microbiology 05/02/17 Gram Stain, Received Pending 05/02/17 Sputum Culture, Received Pending Physical Exam General Appearance: Malnourished Neck Neck Exam: Neck Supple Pulmonary Resp Exam: Rhonchi Cardiology CV Exam: Regular Extremeties Extremities Exam: Dependent Edema Assessment/Plan Problem List: (1) Acute kidney injury ICD Codes: N17.9 - Acute kidney failure, unspecified Status: Acute Plan: BOBBI could be due to sepsis, and ATN. Patient is an hepatorenal syndrome for urine output started Sandostatin 50 mcg every 8 hours UOP improved with diuresis Cr declined 2.28. Dr. Lane to follow (2) Severe sepsis ICD Codes: A41.9 - Sepsis, unspecified organism; R65.20 - Severe sepsis without septic shock Status: Acute Plan: Blood culutres negative Being treated for pneumonia and UTI, also may have SBP. Currently on Zosyn, micafungin, Zithromax; he was given Rocephin. Monitor clinically, continue supportive care, vent management per protocol. ID following. (3) Alcohol abuse ICD Codes: F10.10 - Alcohol abuse Status: Chronic Plan: Withdrawal protocol as ordered (4) Hypokalemia ICD Codes: E87.6 - Hypokalemia Plan: Continue to replace Follow labs (5) Metabolic acidosis ICD Codes: E87.2 - Acidosis Plan: monitor. He is being given lactulose, resulting in bicarbonate loss. Renal failure also contributing. Clifton Rodgers MD May 02, 2017 12:05
--- NOTE | 2017-05-02 14:28 | RADRPT ---
EXAM DATE/TIME: 05/02/2017 13:22 [place] COMPARISON: CT BRAIN W/O CONTRAST, April 05, 2015, 20:13. CT BRAIN W/O CONTRAST, April 27, 2017, 15:44. INDICATIONS : Encephalopathy. MEDICAL HISTORY : Seizures. Chronic obstructive pulmonary disease. Renal failure, acute. CVA. SURGICAL HISTORY : Right hip ORIF. ENCOUNTER: Initial ACUITY: 1 day PAIN SCORE: 0/10 LOCATION: cranial TECHNIQUE: Multiplanar, multisequence MRI of the brain was performed without contrast. FINDINGS: CEREBRUM: Moderate atrophy with prominence of sulci and basal cisterns. The ventricles are dilated with asymme tric appearance to the frontal horns, small on the right than on the left; asymmetry of frontal ventr icles is unchanged from prior CT scans dating back to 2013. Encephalomalacia involving the right tem poral tip is also stable.. No evidence of midline shift, mass lesion, hemorrhage or acute infarction . No extraaxial fluid collections are seen. The pituitary gland and suprasellar cistern are normal in configuration. WHITE MATTER: There are diffuse and confluent areas of T2 prolongation throughout the supratentorial white matter w ithout significant asymmetry between left and right sides. The appearance is non-specific with regar d to diffuse ischemic change versus other disseminated white matter abnormalities. POSTERIOR FOSSA: The cerebellum and brainstem are intact. The 4th ventricle is midline. The cerebellopontine angle is unremarkable. The cerebellar tonsils are normal in position. DIFFUSION IMAGING: No focal areas of restricted diffusion are seen. No evidence of acute infarction. EXTRACRANIAL: The visualized portions of the orbits and paranasal sinuses are unremarkable. CONCLUSION: 1. No evidence of acute infarction or acute hemorrhage. 2. Diffuse confluent disseminated white matter signal abnormalities in the supratentorial brain is no nspecific in appearance and could be due to diffuse white matter disease or ischemic process. Cliff Lugo MD on May 02, 2017 at 14:22 Board Certified Radiologist. This report was verified electronically.
--- NOTE | 2017-05-02 15:13 | MG ---
cc: ZANDER WARE M.D. Lab No: [id number] Date: 05/02/2017 Age: Sex: M Race: TECHNIQUE 17-channel EEG. DESCRIPTION: Background rhythm reveals slowing in the delta frequency at 3-4 Hz. Amplitude is about 5-10 microvolts. There is some muscle artifact present. No lateralizing features identified. There are no epileptiform features seen. Photic results in a poor driving response. INTERPRETATION Abnormal study consistent with a significant encephalopathy which does appear to be severe on today's tracing. MD SIMRAN Wilson/RAYSHAWN /2:51 PM /3:15 PM
[2017-05-02] MEDS ORDERED: BUMETANIDE INJ 1 MG/4 ML VIAL IV PUSH SCH (18:00)
[2017-05-02] MEDS: MICAFUNGIN INJ 150 MG in SODIUM CHLORIDE 0.9% INJ 100 ML IV SCH (20:36)
[2017-05-03] VITALS (27 sets, daily range): BP systolic 118–147; BP diastolic 72–92; PULSE 86–101; RESP 19; TEMP 97.9–100; O2SAT 97–100
[2017-05-03] MEDS: PIPERACIL-TAZO 3.375 GM PREMIX 50 ML IV SCH ×3 (00:30→17:57)
[2017-05-03] MEDS: FAMOTIDINE 20 MG/2 ML VIAL IV PUSH SCH ×2 (00:30→14:45)
[2017-05-03] MEDS: INSULIN NovoLIN REGULAR SUPPLEMENTAL SCALE SQ SCH ×6 (04:00→20:40)
[2017-05-03] MEDS: ALBUMIN 25% INJ 50 ML IV SCH ×2 (05:14→17:57)
[2017-05-03] MEDS: FREE WATER G-TUBE SCH ×4 (05:14→20:40)
[2017-05-03] MEDS: OCTREOTIDE INJ 50 MCG/ML AMP IV PUSH SCH ×3 (05:15→20:48)
[2017-05-03 07:15] LABS: AUTOMATED NEUTROPHIL # 29.2 TH/MM3 (1.8-7.7); BASOPHIL # 0.1 TH/MM3 (0-0.2); BASOPHIL % 0.2 % (0.0-2.0); HEMATOCRIT 30.2 % (39.0-51.0); LYMPH % 4.3 % (9.0-44.0); LYMPHOCYTE # 1.4 TH/MM3 (1.0-4.8); MEAN CELL VOLUME 90.2 FL (80.0-100.0); MEAN CORPUSCULAR HEMOGLOBIN 29.2 PG (27.0-34.0); MEAN CORPUSCULAR HGB CONC 32.4 % (32.0-36.0); MONO % 5.5 % (0.0-8.0); PLATELET COUNT 54 TH/MM3 (150-450); RED BLOOD COUNT 3.35 MIL/MM3 (4.50-5.90); RED CELL DISTRIBUTION WIDTH 14.1 % (11.6-17.2); WHITE BLOOD COUNT 32.4 TH/MM3 (4.0-11.0)
[2017-05-03 07:26] LABS: HEMO FLAGS AUTO DIFF
[2017-05-03 07:30] LABS: ANION GAP 10 MEQ/L (5-15); BICARBONATE 25.8 MEQ/L (21.0-32.0); BLOOD UREA NITROGEN 46 MG/DL (7-18); CHLORIDE 111 MEQ/L (98-107); GLOMERULAR FILTRATION RATE 35 ML/MIN (>89); SODIUM (NA) 147 MEQ/L (136-145)
[2017-05-03 07:31] LABS: AST (GOT) 184 U/L (15-37)
[2017-05-03 07:37] LABS: ALKALINE PHOSPHATASE 271 U/L (45-117); ALT (GPT) 66 U/L (12-78); TOTAL BILIRUBIN ADULT 6.3 MG/DL (0.2-1.0)
[2017-05-03 07:47] LABS: POTASSIUM 2.3 MEQ/L (3.5-5.1)
--- NOTE | 2017-05-03 07:50 | HHI.CCPN ---
Subjective Remarks/Hospital Course Patient is a 61-year-old male with past medical history of EtOH abuse, chronic obstructive pulmonary disease, seizure disorder, cerebrovascular accident, who presented to [facility] emergency department earlier this morning via EMS, under supposedly a Dwyer acted. The patient told the regional owner operator truck driver of the Hotel where he is staying that he wants to commit suicide. The police were called and the patient was brought in to the hospital. On arrival to the emergency department he was found to have leukocytosis with a WBC of 21.6 and was in renal failure with creatinine of 2.51. The patient also had mild lactic acidemia with elevated lactic acid level 2.4 and elevated AST: 121 with total bilirubin 2.9. He had an ABG done this morning on 4 liters oxygen was which showed a pH of 7.34, CO2 28 and pAO2 135, bicarb 15, saturation 96%. Chest x-ray In the ER showed mild interstitial past is in the upper left lung. He also had CT abdomen and pelvis done which showed severe ascites along with steatosis of the liver and right inguinal hernia. [facility] and the patient was transferred to ICU. Critical care medicine was consulted for critical care management. When seen in ICU the patient was lethargic, unresponsive. He was subsequently intubated and placed on mechanical ventilation for airway protection. In the ICU the patient was hypotensive with systolic blood pressure in the 90s, A right IJ emergent central line was placed. 04/28 Patient is intubated off sedation started on Levophed yesterday 12 mics. s /p CT guided paracentesis with removal 4L. 04/29 Patient remains intubated and sedated with Fentanyl drip. Levophed down 7 mics, vasopressin added yesterday. Afebrile. On Bicarb drip. 04/30 Patient remains sedated with Fentanyl and intubated. Required increase FIO2/PEEP overnight given additional Bumex 2mg IV x1. CXR yesterday showed diffuse b/l pulm infiltrates. Levophed down to 5 mics, off Vasopressin. 05/01 Patient remains intubated off sedation Levophed down 3 mics. s/p paracentesis at bedside yesterday with removal 4L. Afebrile. Renal function worse today with Cr: 2.40 from 2.09. 05/02 No events overnight. Sedated with fentanyl and intubated, On Levophed 2mics. Tolerated CPAP for several hrs.. Cr: 2.28 from 2.4 05/03 Patient remains intubated, on no sedation unresponsive. MRI brain yesterday showed no evidence of hemorrhage/infarction. Objective Vital Signs Date Time Temp Pulse Resp B/P (MAP) Pulse Ox O2 Delivery O2 Flow Rate FiO2 05/03/17 06:00 101 05/03/17 04:38 98 40 05/03/17 04:00 97.9 133/78 (96) 05/02/17 16:00 12 04/29/17 08:01 Ventilator Intake and Output 05/03/17 05/03/17 05/04/17 08:00 16:00 00:00 Intake Total 1033 ml Output Total 2025 ml Balance -992 ml Result Diagram: 05/03/17 0620 05/02/17 0530 Other Results Laboratory Tests Test 05/02/17 08:20 05/03/17 06:20 Blood Gas Puncture Site LT RADIAL Blood Gas Patient Temperature 98.6 Blood Gas HCO3 20 mmol/L Blood Gas Base Excess -4.4 mmol/L Blood Gas Oxygen Saturation 92 % Arterial Blood pH 7.38 Arterial Blood Partial Pressure CO2 34 mmHg Arterial Blood Partial Pressure O2 79 mmHg Arterial Blood Oxygen Content 12.8 Vol % Arterial Blood Carboxyhemoglobin 1.2 % Arterial Blood Methemoglobin 1.2 % Blood Gas Hemoglobin 9.8 G/DL Oxygen Delivery Device VENTILATOR Blood Gas Ventilator Setting CPAP 5/10PS Blood Gas Inspired Oxygen 40 % White Blood Count 32.4 TH/MM3 Red Blood Count 3.35 MIL/MM3 Hemoglobin 9.8 GM/DL Hematocrit 30.2 % Mean Corpuscular Volume 90.2 FL Mean Corpuscular Hemoglobin 29.2 PG Mean Corpuscular Hemoglobin Concent 32.4 % Red Cell Distribution Width 14.1 % Platelet Count 54 TH/MM3 Mean Platelet Volume 12.0 FL Neutrophils (%) (Auto) 90.0 % Lymphocytes (%) (Auto) 4.3 % Monocytes (%) (Auto) 5.5 % Eosinophils (%) (Auto) 0.0 % Basophils (%) (Auto) 0.2 % Neutrophils # (Auto) 29.2 TH/MM3 Lymphocytes # (Auto) 1.4 TH/MM3 Monocytes # (Auto) 1.8 TH/MM3 Eosinophils # (Auto) 0.0 TH/MM3 Basophils # (Auto) 0.1 TH/MM3 CBC Comment AUTO DIFF Imaging Last Impressions Chest X-Ray 05/01/17 0000 Signed Impressions: Service Date/Time: Monday, May 01, 2017 13:45 - CONCLUSION: 1. Support apparatus unchanged. Bilateral airspace disease in the lungs not significantly changed. Galileo Mead MD Abdomen Ultrasound 04/30/17 0000 Signed Impressions: Service Date/Time: Sunday, April 30, 2017 11:40 - CONCLUSION: Moderate ascites is still present. Jesus Duncan MD Paracentesis 04/27/17 1452 Signed Impressions: Service Date/Time: Thursday, April 27, 2017 15:51 - CONCLUSION: 1. One complicated CT-guided paracentesis. 2. Profound hepatic steatosis. Wallace Cordoba MD Head CT 04/27/17 0000 Signed Impressions: Service Date/Time: Thursday, April 27, 2017 15:44 - CONCLUSION: Diffuse atrophy is present. Areas of encephalomalacia involving the right temporal tip and the left orbitofrontal cortices. No evidence of acute hemorrhage or edema Jesus Duncan MD Abdomen/Pelvis CT 04/26/17 1724 Signed Impressions: Service Date/Time: Wednesday, April 26, 2017 21:23 - CONCLUSION: 1. Severe abdomino-pelvic ascites. 2. Steatosis of the liver. 3. Right inguinal hernia. Cliff Lugo MD Objective Remarks GENERAL: Patient is 61 yo critically ill intubated and on Levophed SKIN: Warm and dry. HEAD: Normocephalic. EYES: No scleral icterus. No injection or drainage. NECK: Supple, trachea midline. No JVD or lymphadenopathy. CARDIOVASCULAR: Regular rate and rhythm without murmurs, gallops, or rubs. RESPIRATORY: Breath sounds equal bilaterally. No accessory muscle use. GASTROINTESTINAL: non-tender, distended. MUSCULOSKELETAL: No cyanosis, or edema. Neuro: Intubated A/P Assessment and Plan 1. VDRF 2. Encephalopathy. 3. Leukocytosis 4. Ascites rule out SBP 5. Acute kidney injury. 6. Urinary tract infection. 7. Hypokalemia. 8. Lactic acidemia 9. Elevated AST. 10. ETOH abuse. 11. History of cerebrovascular accident and seizure disorder. 12. History of chronic obstructive pulmonary disease. Plan Neuro: Off sedation. Monitor neuro status. Neuro is following- Dr. Decker MRI brain 05/02: No evidence of infarction or hemorrhage Repeat EEG 05/02: Severe encephalopathy 04/27: EEG Mild- mod slowing. No epileptiform features. 04/27: CT brain: No acute findings On Lactulose 30ml QID, Rifaximin 550mg BID, Ammonia level: 29 On Thiamine, MVI, folic acid Pulm: On ACV RR 14, TV 400, PEEP5, FIO2 40%. Continue with vent support and maintain sats above 92%. Bronchodilators, ICU vent bundle. SBT trials as cheryl Check CXR CV: Off Levophed maintain MAP > 65 mmHg. Serial lactic acid monitoring. Lactic acid 2.8. For 2D echo Hydrocortisone- HC 50mg IV Q12 : Monitor renal function Is and Os and avoid nephrotoxins. Follow up on BMP, UOP: 3250 ml in 24 hrs Renal- Dr. Lane. Free water 250ml Q12, d/c Bumex CT scan of the abdomen and pelvis showed no evidence of hydronephrosis, masses or stones. GI: On tube feeds- Nepro @40 ml/hr, on Pepcid 10 mg IV q. 12 for GI prophylaxis Monitor LFT's, s/p CT guided paracentesis with removal 4 on 04/27 and repeat Paracentesis at bedside on 04/30 with 4L removal. Continue with albumin.. Follow up on fluid cx- NGTD. ID: Continue with abx per ID ( On Zosyn, Micafungin, Azithromycin) monitor for signs of infections Follow up on sputum cx, check BC x 2 sets Urine culture: E.coli. C-diff 05/01 negative Heme: Monitor CBC GI prophylaxis with Pepcid 10 mg IV q. 12 and DVT prophylaxis with SCDs. Endo: SSI for glucemic control Lines: Right IJ central line placed 04/27 Patient is critically ill with sepsis, resp failure , renal failure, encephalopathy and UTI. Palliative care consult to asses with goals of care. Level 3 Sonny Khan MD May 03, 2017 07:50
[2017-05-03] MEDS ORDERED: SODIUM PHOSPHATE INJ 30 MMOL in SODIUM CHLOR 0.9% 250 ML INJ 240 ML IV PRN (08:00)
[2017-05-03] MEDS ORDERED: POTASSIUM PHOSPHATE INJ 30 MMOL in SODIUM CHLOR 0.9% 250 ML INJ 250 ML IV PRN (08:00)
[2017-05-03] MEDS ORDERED: MAGNESIUM SULFATE INJ 4 GM in SODIUM CHLORIDE 0.9% INJ 92 ML IV PRN (08:00)
[2017-05-03] MEDS ORDERED: POTASSIUM CHLOR 40 MEQ PREMIX 100 ML IV PRN (08:00)
[2017-05-03] MEDS ORDERED: MAGNESIUM OXIDE 400 MG TAB PO PRN (08:00)
[2017-05-03] MEDS ORDERED: MAGNESIUM SULFATE INJ 2 GM in SODIUM CHLORIDE 0.9% INJ 96 ML IV PRN (08:00)
[2017-05-03] MEDS ORDERED: POTASSIUM PHOSPHATE MONOBASIC 500 MG TAB PO/TUBE PRN (08:00)
[2017-05-03] MEDS ORDERED: POTASSIUM CHLORIDE 25 MEQ EFFERVESCENT TAB PO PRN (08:00)
[2017-05-03] MEDS ORDERED: POTASSIUM CHLOR 20 MEQ PREMIX 100 ML IV PRN ×2 (08:00)
[2017-05-03 08:27] LABS: METAMYELOCYTES 1 % (0-1); NEUTROPHIL # MANUAL DIFF 29.8 TH/MM3 (1.8-7.7); PLATELET ESTIMATE SMEAR LOW (NORMAL); POLYS (SEG NEUTROPHILS) 91 % (16-70); WBC DIFF SAMPLE 100
[2017-05-03 08:28] LABS: PLATELET MORPHOLOGY ENLARGED (NORMAL); SCAN/DIFF FINAL DIFF MANUAL
--- NOTE | 2017-05-03 08:35 | RADRPT ---
EXAM DATE/TIME: 05/03/2017 07:53 [place] COMPARISON: CHEST SINGLE AP, May 01, 2017, 13:45. INDICATIONS : Ventilator-dependant respiratory failure. MEDICAL HISTORY : Chronic obstructive pulmonary disease. Renal failure, acute. Seizures. CVA. SURGICAL HISTORY : Right hip ORIF. ENCOUNTER: Subsequent ACUITY: 1 week PAIN SCORE: Non-responsive. LOCATION: Bilateral chest FINDINGS: A single portable frontal view of the chest shows the tip of the endotracheal tube 4 cm cephalad of t he michael. Right-sided central line in good position. Nasogastric tube courses off the inferior lizz n of the film. Bilateral pulmonary infiltrates have shown significant improvement from the prior stud y. Infiltrates do remain involving both lungs anomaly upper lobes. No effusions. Heart is normal in s ize. The degenerative spine. Suspected old clavicular fractures. CONCLUSION: Improving bilateral pulmonary infiltrates. Cliff Mcnair Jr., MD on May 03, 2017 at 8:32 Board Certified Radiologist. This report was verified electronically.
[2017-05-03] MEDS: HYDROCORTISONE SOD SUCCINATE 100 MG VIAL IV PUSH SCH ×2 (08:43→20:39)
[2017-05-03] MEDS: SODIUM CHLORIDE 0.9% FLUSH 10 ML FLUSH IV FLUSH SCH ×2 (08:43→20:40)
[2017-05-03] MEDS: MULTIVITAMIN TAB PO SCH (08:44)
[2017-05-03] MEDS: CALCIUM CARBONATE 1.25 GM (CA 500 MG) TAB PO SCH ×2 (08:44→20:39)
[2017-05-03] MEDS: LACTULOSE SYRUP 20 GM/30 ML CUP PO SCH ×3 (08:44→17:57)
[2017-05-03] MEDS: THIAMINE HCL 100 MG TAB PO SCH (08:44)
[2017-05-03] MEDS: DOCUSATE SODIUM 50 MG/SENNA 8.6 MG TAB PO SCH ×2 (08:44→20:39)
[2017-05-03] MEDS: AZITHROMYCIN 250 MG TAB PO SCH (08:44)
[2017-05-03] MEDS: RIFAXIMIN 550 MG TAB PO SCH (08:44)
[2017-05-03] MEDS: FOLIC ACID 1 MG TAB PO SCH (08:44)
[2017-05-03] MEDS: POTASSIUM CHLOR 40 MEQ PREMIX 100 ML IV PRN ×4 (10:08→23:01)
--- NOTE | 2017-05-03 10:11 | HHI.NPPN ---
Subjective Renal Failure: Acute Interval History He is off sedation but not waking up. On CPAP trial. Excellent urine output, renal function improving. (Jayla Robins) Review of Systems General General Remarks unable to obtain (Jayla Robins) Objective Data Data Vital Signs Date Time Temp Pulse Resp B/P (MAP) Pulse Ox O2 Delivery O2 Flow Rate FiO2 05/03/17 07:47 40 05/03/17 07:46 100 40 05/03/17 07:43 99 40 05/03/17 06:00 101 05/03/17 04:38 98 40 05/03/17 04:00 40 05/03/17 04:00 97 05/03/17 04:00 97.9 93 133/78 (96) 98 05/03/17 02:00 86 05/03/17 00:13 98 40 05/03/17 00:00 40 05/03/17 00:00 86 05/03/17 00:00 98.8 89 118/72 (87) 98 05/02/17 22:00 40 05/02/17 22:00 96 05/02/17 20:26 98 40 05/02/17 20:00 86 05/02/17 20:00 97.9 91 107/65 (79) 98 05/02/17 18:00 86 05/02/17 16:00 89 05/02/17 16:00 98.1 91 12 116/73 (87) 97 05/02/17 16:00 40 05/02/17 15:40 98 40 05/02/17 14:00 91 05/02/17 13:00 100 60 05/02/17 12:48 95 40 05/02/17 12:00 86 05/02/17 12:00 40 05/02/17 12:00 97.6 86 8 107/65 (79) 96 (Jayla Robins) -: 05/03/17 0620 05/03/17 0620 Microbiology 05/03/17 Aerobic Blood Culture, Received Pending 05/03/17 Anaerobic Blood Culture, Received Pending Imaging Last Impressions Brain MRI 05/02/17 0000 Signed Impressions: Service Date/Time: Tuesday, May 02, 2017 13:22 - CONCLUSION: 1. No evidence of acute infarction or acute hemorrhage. 2. Diffuse confluent disseminated white matter signal abnormalities in the supratentorial brain is nonspecific in appearance and could be due to diffuse white matter disease or ischemic process. Cliff Lugo MD Chest X-Ray 05/01/17 0000 Signed Impressions: Service Date/Time: Monday, May 01, 2017 13:45 - CONCLUSION: 1. Support apparatus unchanged. Bilateral airspace disease in the lungs not significantly changed. Galileo Mead MD Abdomen Ultrasound 04/30/17 0000 Signed Impressions: Service Date/Time: Sunday, April 30, 2017 11:40 - CONCLUSION: Moderate ascites is still present. Jesus Duncan MD Paracentesis 04/27/17 1452 Signed Impressions: Service Date/Time: Thursday, April 27, 2017 15:51 - CONCLUSION: 1. One complicated CT-guided paracentesis. 2. Profound hepatic steatosis. Wallace Cordoba MD Head CT 04/27/17 0000 Signed Impressions: Service Date/Time: Thursday, April 27, 2017 15:44 - CONCLUSION: Diffuse atrophy is present. Areas of encephalomalacia involving the right temporal tip and the left orbitofrontal cortices. No evidence of acute hemorrhage or edema Jesus Duncan MD Abdomen/Pelvis CT 04/26/17 1724 Signed Impressions: Service Date/Time: Wednesday, April 26, 2017 21:23 - CONCLUSION: 1. Severe abdomino-pelvic ascites. 2. Steatosis of the liver. 3. Right inguinal hernia. Cliff Lugo MD Tubes & Lines: [place] Tubes & Lines Comment TLC right IJ (Jayla Robins B. AERONAUTICAL DESIGN ENGINEER) Physical Exam General Appearance: No Acute Distress, Comfortable, Malnourished Appearance Remarks unresponsive on vent, moves to noxious stimuli (Jayla Robins B. AERONAUTICAL DESIGN ENGINEER) Throat Throat Exam: Oral Mucosa [place] & Moist (John Robinson B. AERONAUTICAL DESIGN ENGINEER) Neck Neck Exam: Neck Supple (ShimonJayla B. AERONAUTICAL DESIGN ENGINEER) Pulmonary Resp Exam: Breath Sounds Equal, Crackles Resp Remarks vented lung sounds (Jayla Robins B. AERONAUTICAL DESIGN ENGINEER) Cardiology CV Exam: Regular (Jayla Robins B. AERONAUTICAL DESIGN ENGINEER) Gastrointestinal/Abdomen GI Exam: Soft, Non-Tender, Positive Bowel Movement GI Remarks ascites (Jayla Robins) Musculoskeletal MS Exam: Joints Intact, Normal Tone, Unable to Ambulate (Jayla Robins) Integumentary Skin Exam: Warm, Dry (Jayla Robins) Extremeties Extremities Exam: Pedal Pulses Palpable, Moderate Edema Extremeties Remarks moderate upper extremity edema (Jayla Robins) Neurologic Neuro Exam: Moving All Extremities, Obtunded, Unresponsive (Jayla Robins) VTE Prophylaxis Device: SCDs (Jayla Robins) Assessment/Plan Assessment Summary: Hypertension Electrolyte Assessment: Hypernatremia, Hypokalemia Problem List: (1) Acute kidney injury ICD Codes: N17.9 - Acute kidney failure, unspecified Status: Acute Plan: BOBBI could be due to sepsis, and ATN. Renal function is slightly better, excellent urine output Bumex has been stopped. He is not on IVF Free water through OG tube increased. Continue to monitor electrolytes, replace as needed. Prognosis is poor at this time Recommend palliative care and hospice. (2) Severe sepsis ICD Codes: A41.9 - Sepsis, unspecified organism; R65.20 - Severe sepsis without septic shock Status: Acute Plan: Blood culutres negative Urine culture positive; on Zosyn and micafungin, Monitor clinically, continue supportive care, vent management per protocol. ID following. (3) Hypokalemia ICD Codes: E87.6 - Hypokalemia Plan: Replacement ordered, repeat labs tomorrow (4) Alcohol abuse ICD Codes: F10.10 - Alcohol abuse Status: Chronic Plan: Withdrawal protocol as ordered (5) Metabolic acidosis ICD Codes: E87.2 - Acidosis Plan: Continue to monitor. Lactulose causes bicarbonate loss though GI. Renal failure was also contributing. (Jayla Robins) Plan patient was seen and examined. Renal function is stable. Agree with above assessment and plan. (Robert Lane MD) Jayla Robins May 03, 2017 10:[address] MD May 04, 2017 10:37
[2017-05-03 10:12] LABS: MAGNESIUM 1.3 MG/DL (1.5-2.5)
[2017-05-03] MEDS: POTASSIUM PHOSPHATE MONOBASIC 500 MG TAB PO PRN ×2 (11:05→20:39)
--- NOTE | 2017-05-03 13:52 | HHI.HCPN ---
Reason for visit a. To assist with evaluation and management of symptoms including: encephalopathy, dyspnea b. To assist medical decision maker(s) with: better understanding of current medical conditions; weighing benefits/burdens of medical treatment options; making medical treatment decisions. Subjective/Interval History Pt seen to follow up on identification of possible decision maker/ conditions/ goals. Stable over weekend, renal functions improving, and output adequate. Nephrology continues to follow overall prognosis poor recommends palliative care and hospice. Patient remains on mechanical ventilatory tolerating a few hours of CPAP at a time over the weekend. Patient with no improvement in neurological status. Status post MRI brain which showed no evidence of hemorrhage or infarction--does note diffuse confluent disseminated white matter signal abnormalities in the supratentorial brain nonspecific in appearance could be due to diffuse white matter disease or ischemic process. Repeat EEG per neuro 05/02: + severe encephalopathy. Fentanyl has been off since yesterday. Still with leukocytosis 32.4. Sputum 05/02 pending, blood culture pending. Fluid from paracentesis 04/27, 04/30 with no growth. Pt seen in room no visitors present. Tolerating TF. Minimally responsive at time of my exam. + breathing comfortably on CPAP vent. + withdraw of BLE to pain. D/w primary RN, RANDELL. CM has d/w financial svcs, ACCURINT report pending, she will advise me later once any results obtained. If no family identified may d/w friend/landlord if she would be willing/able to serve as proxy as has known pt many years. Call to [place] [employer] dept to discuss decision maker, AJ left. . Advance Directives Living Will: Never completed Health Care Surrogate: Never completed Durable Power of Computer Systems Consultant: Never completed Objective Vital Signs Date Time Temp Pulse Resp B/P (MAP) Pulse Ox O2 Delivery O2 Flow Rate FiO2 05/03/17 12:00 100 05/03/17 12:00 99.0 100 122/76 (91) 99 05/03/17 12:00 40 05/03/17 11:22 99 40 05/03/17 10:00 97 147/83 (104) 99 05/03/17 10:00 97 05/03/17 09:00 93 137/84 (101) 99 05/03/17 08:00 98 05/03/17 08:00 40 05/03/17 08:00 98.2 98 142/82 (102) 99 05/03/17 07:47 40 05/03/17 07:46 100 40 05/03/17 07:43 99 40 05/03/17 07:00 94 136/82 (100) 99 05/03/17 06:00 93 141/83 (102) 98 05/03/17 06:00 101 05/03/17 05:00 95 132/72 (92) 97 05/03/17 04:38 98 40 05/03/17 04:00 40 05/03/17 04:00 97 05/03/17 04:00 97.9 93 133/78 (96) 98 05/03/17 02:00 86 05/03/17 00:13 98 40 05/03/17 00:00 40 05/03/17 00:00 86 05/03/17 00:00 98.8 89 118/72 (87) 98 05/02/17 22:00 40 05/02/17 22:00 96 05/02/17 20:26 98 40 05/02/17 20:00 86 05/02/17 20:00 97.9 91 107/65 (79) 98 05/02/17 18:00 86 05/02/17 16:00 89 05/02/17 16:00 98.1 91 12 116/73 (87) 97 05/02/17 16:00 40 05/02/17 15:40 98 40 05/02/17 14:00 91 Intake & Output 05/03/17 05/03/17 07:00 19:00 Intake Total 1133 ml Output Total 2025 ml Balance -892 ml Intake IV Total 150 ml Tube Feeding 483 ml Other 500 ml Output Urine Total 2000 ml Drainage Total 25 ml # Bowel Movements 2 Physical Exam CONSTITUTIONAL/GENERAL: Chronically ill-appearing patient, minimally responsive on mechanical vent TUBES/LINES/DRAINS: Right IJ central line, ET tube, OG tube, augustin catheter, wound drainage bag LLQ SKIN: Skin temperature appropriate warm. wound drainage bag LLQ- reported paracentesis site. Chronic scaling, thickening noted to skin bilateral lower extremities especially to feet. HEAD: Atraumatic. Normocephalic. EYES: Pupils 2 mm, questionable reaction to light. No scleral icterus. No injection or drainage. Fundi not examined. CARDIOVASCULAR: Regular rate and rhythm without murmur. No JVD. Unable to palpate pedal pulses. Radial pulses palpable.+ Edema bilateral upper extremities RESPIRATORY/CHEST: Symmetric unlabored respirations via ETT to mech vent on CPAP , clear, equal bilaterally GASTROINTESTINAL: Abdomen soft, nondistended. no readily palpable masses. OG w TF infusing. BS normoactive GENITOURINARY: Without palpable bladder distension. dark yellow urine present in catheter NEUROLOGICAL: no sedation, mechanical vent. Minimally responsive to exam. Withdraws bilateral lower extremities slightly to pain stimuli does not withdrawal upper extremities. PSYCHIATRIC: Limited assessment due to clinical condition. Diagnostic Tests Laboratory Laboratory Tests Test 04/30/17 13:50 04/30/17 17:25 05/01/17 04:15 05/01/17 06:45 Blood Urea Nitrogen 35 MG/DL (7-18) 38 MG/DL (7-18) Creatinine 2.09 MG/DL (0.60-1.30) 2.40 MG/DL (0.60-1.30) Random Glucose 128 MG/DL (74-106) 157 MG/DL (74-106) Calcium Level 7.6 MG/DL (8.5-10.1) 6.9 MG/DL (8.5-10.1) Sodium Level 143 MEQ/L (136-145) 143 MEQ/L (136-145) Potassium Level 4.6 MEQ/L (3.5-5.1) 4.6 MEQ/L (3.5-5.1) Chloride Level 114 MEQ/L (98-107) 112 MEQ/L (98-107) Carbon Dioxide Level 17.0 MEQ/L (21.0-32.0) 20.4 MEQ/L (21.0-32.0) Anion Gap 12 MEQ/L (5-15) 11 MEQ/L (5-15) Estimat Glomerular Filtration Rate 32 ML/MIN (>89) 27 ML/MIN (>89) Peritoneal Fluid WBC 168 /MM3 (0-10) Peritoneal Fluid RBC 128 /MM3 (0-0) Peritoneal Fluid Neutrophils 33 % Peritoneal Fluid Lymphocytes 50 % Peritoneal Fluid Monocytes 3 % Peritoneal Fluid Histiocytes 14 % Peritoneal Fluid Total Protein 0.6 GM/DL Peritoneal Fluid LDH 61 U/L Peritoneal Fluid Glucose 142 MG/DL White Blood Count 23.3 TH/MM3 (4.0-11.0) Red Blood Count 3.63 MIL/MM3 (4.50-5.90) Hemoglobin 10.2 GM/DL (13.0-17.0) Hematocrit 33.2 % (39.0-51.0) Mean Corpuscular Volume 91.4 FL (80.0-100.0) Mean Corpuscular Hemoglobin 28.1 PG (27.0-34.0) Mean Corpuscular Hemoglobin Concent 30.7 % (32.0-36.0) Red Cell Distribution Width 14.2 % (11.6-17.2) Platelet Count 73 TH/MM3 (150-450) Mean Platelet Volume 10.3 FL (7.0-11.0) Neutrophils (%) (Auto) 87.6 % (16.0-70.0) Lymphocytes (%) (Auto) 6.7 % (9.0-44.0) Monocytes (%) (Auto) 5.5 % (0.0-8.0) Eosinophils (%) (Auto) 0.0 % (0.0-4.0) Basophils (%) (Auto) 0.2 % (0.0-2.0) Neutrophils # (Auto) 20.4 TH/MM3 (1.8-7.7) Lymphocytes # (Auto) 1.6 TH/MM3 (1.0-4.8) Monocytes # (Auto) 1.3 TH/MM3 (0-0.9) Eosinophils # (Auto) 0.0 TH/MM3 (0-0.4) Basophils # (Auto) 0.1 TH/MM3 (0-0.2) CBC Comment AUTO DIFF Differential Total Cells Counted 100 Neutrophils % (Manual) 86 % (16-70) Band Neutrophils % 7 % (0-6) Lymphocytes % 3 % (9-44) Monocytes % 4 % (0-8) Neutrophils # (Manual) 21.7 TH/MM3 (1.8-7.7) Differential Comment FINAL DIFF MANUAL Platelet Estimate LOW (NORMAL) Platelet Morphology Comment ENLARGED (NORMAL) Polychromasia 2.0 % (0.0-1.9) Basophilic Stippling FAINT (NORMAL) Total Protein 5.9 GM/DL (6.4-8.2) Albumin 1.5 GM/DL (3.4-5.0) Alkaline Phosphatase 112 U/L (45-117) Aspartate Amino Transf (AST/SGOT) 167 U/L (15-37) Alanine Aminotransferase (ALT/SGPT) 45 U/L (12-78) Total Bilirubin 4.1 MG/DL (0.2-1.0) Protein Corrected Calcium 7.5 MG/DL (8.5-10.1) Stool C. difficile Toxin (PCR) NEGATIVE (NEGATIVE) Stl C. difficile Toxin Epiderm 027 PRESUMPTIVE NEGATIVE Test 05/01/17 14:25 05/02/17 05:30 05/02/17 08:20 05/03/17 06:20 Ammonia 29 MCMOL/L (11-32) White Blood Count 24.6 TH/MM3 (4.0-11.0) 32.4 TH/MM3 (4.0-11.0) Red Blood Count 3.30 MIL/MM3 (4.50-5.90) 3.35 MIL/MM3 (4.50-5.90) Hemoglobin 9.6 GM/DL (13.0-17.0) 9.8 GM/DL (13.0-17.0) Hematocrit 30.1 % (39.0-51.0) 30.2 % (39.0-51.0) Mean Corpuscular Volume 91.1 FL (80.0-100.0) 90.2 FL (80.0-100.0) Mean Corpuscular Hemoglobin 29.1 PG (27.0-34.0) 29.2 PG (27.0-34.0) Mean Corpuscular Hemoglobin Concent 31.9 % (32.0-36.0) 32.4 % (32.0-36.0) Red Cell Distribution Width 13.7 % (11.6-17.2) 14.1 % (11.6-17.2) Platelet Count 60 TH/MM3 (150-450) 54 TH/MM3 (150-450) Mean Platelet Volume 11.6 FL (7.0-11.0) 12.0 FL (7.0-11.0) Neutrophils (%) (Auto) 89.4 % (16.0-70.0) 90.0 % (16.0-70.0) Lymphocytes (%) (Auto) 4.9 % (9.0-44.0) 4.3 % (9.0-44.0) Monocytes (%) (Auto) 5.5 % (0.0-8.0) 5.5 % (0.0-8.0) Eosinophils (%) (Auto) 0.0 % (0.0-4.0) 0.0 % (0.0-4.0) Basophils (%) (Auto) 0.2 % (0.0-2.0) 0.2 % (0.0-2.0) Neutrophils # (Auto) 21.9 TH/MM3 (1.8-7.7) 29.2 TH/MM3 (1.8-7.7) Lymphocytes # (Auto) 1.2 TH/MM3 (1.0-4.8) 1.4 TH/MM3 (1.0-4.8) Monocytes # (Auto) 1.4 TH/MM3 (0-0.9) 1.8 TH/MM3 (0-0.9) Eosinophils # (Auto) 0.0 TH/MM3 (0-0.4) 0.0 TH/MM3 (0-0.4) Basophils # (Auto) 0.1 TH/MM3 (0-0.2) 0.1 TH/MM3 (0-0.2) CBC Comment DIFF FINAL AUTO DIFF Differential Comment FINAL DIFF MANUAL Blood Urea Nitrogen 45 MG/DL (7-18) 46 MG/DL (7-18) Creatinine 2.28 MG/DL (0.60-1.30) 1.94 MG/DL (0.60-1.30) Random Glucose 131 MG/DL (74-106) 155 MG/DL (74-106) Total Protein 5.9 GM/DL (6.4-8.2) 6.6 GM/DL (6.4-8.2) Albumin 1.7 GM/DL (3.4-5.0) 2.2 GM/DL (3.4-5.0) Calcium Level 7.4 MG/DL (8.5-10.1) 7.6 MG/DL (8.5-10.1) Alkaline Phosphatase 101 U/L (45-117) 271 U/L (45-117) Aspartate Amino Transf (AST/SGOT) 129 U/L (15-37) 184 U/L (15-37) Alanine Aminotransferase (ALT/SGPT) 47 U/L (12-78) 66 U/L (12-78) Total Bilirubin 4.3 MG/DL (0.2-1.0) 6.3 MG/DL (0.2-1.0) Sodium Level 146 MEQ/L (136-145) 147 MEQ/L (136-145) Potassium Level 3.6 MEQ/L (3.5-5.1) 2.3 MEQ/L (3.5-5.1) Chloride Level 114 MEQ/L (98-107) 111 MEQ/L (98-107) Carbon Dioxide Level 22.1 MEQ/L (21.0-32.0) 25.8 MEQ/L (21.0-32.0) Anion Gap 10 MEQ/L (5-15) 10 MEQ/L (5-15) Estimat Glomerular Filtration Rate 29 ML/MIN (>89) 35 ML/MIN (>89) Protein Corrected Calcium 8.1 MG/DL (8.5-10.1) Blood Gas Puncture Site LT RADIAL Blood Gas Patient Temperature 98.6 Blood Gas HCO3 20 mmol/L (22-26) Blood Gas Base Excess -4.4 mmol/L (-2-2) Blood Gas Oxygen Saturation 92 % (90-100) Arterial Blood pH 7.38 (7.380-7.420) Arterial Blood Partial Pressure CO2 34 mmHg (38-42) Arterial Blood Partial Pressure O2 79 mmHg (61-120) Arterial Blood Oxygen Content 12.8 Vol % (12.0-20.0) Arterial Blood Carboxyhemoglobin 1.2 % (0-4) Arterial Blood Methemoglobin 1.2 % (0-2) Blood Gas Hemoglobin 9.8 G/DL (12.0-16.0) Oxygen Delivery Device VENTILATOR Blood Gas Ventilator Setting CPAP 5/10PS Blood Gas Inspired Oxygen 40 % Differential Total Cells Counted 100 Neutrophils % (Manual) 91 % (16-70) Lymphocytes % 3 % (9-44) Monocytes % 5 % (0-8) Neutrophils # (Manual) 29.8 TH/MM3 (1.8-7.7) Metamyelocytes 1 % (0-1) Platelet Estimate LOW (NORMAL) Platelet Morphology Comment ENLARGED (NORMAL) Phosphorus Level 2.0 MG/DL (2.5-4.9) Magnesium Level 1.3 MG/DL (1.5-2.5) Result Diagram: 05/03/17 0620 05/03/17 0620 Microbiology Microbiology Date/Time Source Procedure Growth Status 05/03/17 10:10 Blood Peripheral Aerobic Blood Culture Pending Received 05/03/17 10:10 Blood Peripheral Anaerobic Blood Culture Pending Received 05/03/17 08:35 Blood Peripheral Aerobic Blood Culture Pending Received 05/03/17 08:35 Blood Peripheral Anaerobic Blood Culture Pending Received 04/30/17 17:25 Fluid Peritoneal Fluid Gram Stain - Final Complete 04/30/17 17:25 Fluid Peritoneal Fluid Body Fluid Culture - Final NO GROWTH IN 72 HRS.--AEROBICALLY OR ... Complete 05/02/17 08:10 Sputum Endotracheal Gram Stain - Final Resulted 05/02/17 08:10 Sputum Endotracheal Sputum Culture Pending Resulted Imaging Last Impressions Brain MRI 05/02/17 0000 Signed Impressions: Service Date/Time: Tuesday, May 02, 2017 13:22 - CONCLUSION: 1. No evidence of acute infarction or acute hemorrhage. 2. Diffuse confluent disseminated white matter signal abnormalities in the supratentorial brain is nonspecific in appearance and could be due to diffuse white matter disease or ischemic process. Cliff Lugo MD Chest X-Ray 05/01/17 0000 Signed Impressions: Service Date/Time: Monday, May 01, 2017 13:45 - CONCLUSION: 1. Support apparatus unchanged. Bilateral airspace disease in the lungs not significantly changed. Galileo Mead MD Abdomen Ultrasound 04/30/17 0000 Signed Impressions: Service Date/Time: Sunday, April 30, 2017 11:40 - CONCLUSION: Moderate ascites is still present. Jesus Duncan MD Paracentesis 04/27/17 1452 Signed Impressions: Service Date/Time: Thursday, April 27, 2017 15:51 - CONCLUSION: 1. One complicated CT-guided paracentesis. 2. Profound hepatic steatosis. Wallace Cordoba MD Head CT 04/27/17 0000 Signed Impressions: Service Date/Time: Thursday, April 27, 2017 15:44 - CONCLUSION: Diffuse atrophy is present. Areas of encephalomalacia involving the right temporal tip and the left orbitofrontal cortices. No evidence of acute hemorrhage or edema Jesus Duncan MD Abdomen/Pelvis CT 04/26/17 1724 Signed Impressions: Service Date/Time: Wednesday, April 26, 2017 21:23 - CONCLUSION: 1. Severe abdomino-pelvic ascites. 2. Steatosis of the liver. 3. Right inguinal hernia. Cliff Lugo MD Procedures 04/27 intubation, right IJ central line 04/28 CT-guided Paracentesis, 4 L . Assessment and Plan Disease Oriented Problem List: (1) Respiratory failure, acute (2) COPD (chronic obstructive pulmonary disease) (3) Tobacco abuse (4) Hepatic encephalopathy (5) Pneumonia (6) Severe sepsis (7) Acute kidney injury (8) Hypokalemia (9) Alcohol abuse (10) Metabolic acidosis Symptom Scale: (1) Dyspnea (2) Encephalopathy Pertinent Non-Medical Issues Psychosocial:Per EMR patient reported to be homeless though at times resides in a hotel room. Per case management record- patient reports no Social Security number or contact persons. Per prior visit ID in EMR, note a scanned ID card documenting SSN #[id number]. During a prior visit in EMR 2014, contacts documented a brother Edin Goode @ [address] [place] [address] [phone]--> case management notes that the patient reports brother however he was living in that mobile home with his sister in law. Multiple hospitalizations note patient homeless and no other family reported. Spiritual: Not known Legal:Patient currently intubated and sedated and unable to participate in decision-making. Prior to intubation and sedation ED physician notes that patient did not have the capacity to make his own decisions. Patient previously listed a brother [Edin Goode] as a contact during past hospitalizations, however per later records/admissions he later indicated this brother . No other family contact has been listed. need to obtain ACCURINT report to locate next of kin; if no next of kin can be identified may need appointed /temporary legal decision-maker such as social work advantage. SSN# per prior ID card scanned in EMR: [id number]. Ethical issues impacting care:no ethical issues identified at this time Important Contacts None listed; Patient previously reported a brother Edni Goode in [place] as a contact however this person during later visits was reported to be . No other family is known at this time. Landlord/friend Opal Leonardo; [facility]. [phone] ritesh // office . Prognosis Condition is critical, Prognosis at this time guarded in terms of survival and recovery. Patient with long history of EtOH and various complications secondary to. Now with multiorgan failure requiring mechanical vent. He remains at risk for ongoing, medications and setbacks. If he does survive current acute hospitalization, he will likely have ongoing risk for further decline in complications. . Code Status: Full Code Plan * Legal decision maker:Patient currently intubated and sedated and unable to participate in decision-making. Prior to intubation and sedation ED physician notes that patient did not have the capacity to make his own decisions. Patient previously listed a brother as a contact during past hospitalizations, however per later records/admissions he later indicated this brother . No other family contact has been listed. need to obtain ACCURINT report to locate next of kin; if no next of kin can be identified may need appointed / temporary legal decision-maker such as social work advantage. SSN# per prior ID card scanned in EMR: [id number]. Jackie informs patient may have a daughter though did not know her name or location. She is going to continue to look through patient's paperwork in his rented room to see if she can find more contact information. 05/03/17 Accurints pending. CM has d/w financial svcs, ACCURINT report pending, she will advise me later once any results obtained. If no family identified may d/w friend/landlord if she would be willing/able to serve as proxy as has known pt many years. * Goals: TBD, pending identification of appropriate legal decision maker. Palliative will discuss conditions, goals once appropriate legal decision maker is identified. * CODE STATUS: Full code by default * SYMPTOMS: --Encephalopathy/AMS-now intubated and sedated. Long history of EtOH abuse, seizures and secondary injuries. Likely multifactorial: Hepatic, renal dysfunction, sepsis, respiratory failure. repeat EEG severe encephalopathy. No sedation since yesterday. still minimally responsive. MRI neg for acute process. --Dyspnea-admitted with pneumonia, worsening respiratory status now intubated , tolerating CPAP a few hrs at a time. Still encephalopathic which may limit ventilator weaning/ability to maintain airway. * Palliative care will continue to follow during hospital course as condition evolves, to assist patient/decision-maker with understanding of medical conditions, weighing benefits/burdens of treatment options, for clarification of goals of treatment. Additionally will assist with any symptoms of palliative concern Time Spent Total Floor Time (mins): 25 (chart review, PE, d/w nursing, d/w CM) Attestation To help prompt me to consider important information that might be impacting today's encounter and assessment, information from prior notes written by myself or my colleagues may have been "brought forward" into today's note. My signature on this note, however, is an attestation that I personally performed the exam, history, and/or decision-making noted today, and, unless otherwise indicated, the interactions with patient, family, and staff as well as the review of records all occurred today. I also attest that the listed assessment and stated plan reflect my best clinical judgment today based on the combination of historical information, prior notes, and today's exam/ interactions. When time spent is documented, it refers only to time spent today by the signer, or if indicated, combined time spent today by collaborating physician/nurse practitioner. Liliam Shell May 03, 2017 13:52
--- NOTE | 2017-05-03 14:58 | HHI.HCPN ---
Accurints results received, SCUBA INSTRUCTOR reports no SS# for patient: JHOAN GOODE~ (AGE 58) ,[place] [phone] ~AND MONAE GOODE (AGE 57) [phone] Spoke with Monae Goode. Reports Mr. Jhoan Goode has been for 2 years. She reports no relation to this patient. Provided SCUBA INSTRUCTOR with SS# listed in previous EMR record. Requested another accurints with SS#. Awaiting results. Elizabeth Mcnair SALES LEAD, GOLF [employer]ADDY May 03, 2017 14:58
--- NOTE | 2017-05-03 15:39 | HHI.PR ---
Eda Hodge MD May 03, 2017 15:39
--- NOTE | 2017-05-03 16:21 | HHI.PR ---
Review/Management Diagnosis metabolic encephalopathy Diagnosis/Plan: Subjective Subjective Comments No acute events reported Active Medications Current Medications Medications (Trade) Dose Ordered Sig/Shanelle Route Start Time Stop Time Status Last Admin (NS Flush) 2 ml UNSCH PRN IV FLUSH 04/26/17 22:30 05/02/17 08:34 (NS Flush) 2 ml BID IV FLUSH 04/27/17 09:00 05/03/17 08:43 (Zofran Inj) 4 mg Q6H PRN IVP 04/26/17 22:30 (Narcan Inj) 0.4 mg UNSCH PRN IV PUSH 04/26/17 22:30 (Yue-Colace) 1 tab BID PO 04/27/17 09:00 05/02/17 20:35 (Milk Of Magnesia Liq) 30 ml Q12H PRN PO 04/26/17 22:30 (Senokot) 17.2 mg Q12H PRN PO 04/26/17 22:30 (Dulcolax Supp) 10 mg DAILY PRN RECTAL 04/26/17 22:30 (Lactulose Liq) 30 ml DAILY PRN PO 04/26/17 22:30 (Romazicon Inj) 0.2 mg Q1M PRN IV PUSH 04/26/17 22:30 (Ativan) 1 mg Q4H PRN PO 04/26/17 22:30 (Ativan Inj) 1 mg Q4H PRN IV PUSH 04/26/17 22:30 04/27/17 01:08 (Ativan) 2 mg Q2H PRN PO 04/26/17 22:30 (Ativan Inj) 2 mg Q2H PRN IV PUSH 04/26/17 22:30 (Ativan Inj) 2 mg Q1H PRN IV PUSH 04/26/17 22:30 (Ativan Inj) 2 mg Q15M PRN IV PUSH 04/26/17 22:30 (Zithromax) 250 mg DAILY PO 04/27/17 09:00 05/03/17 08:44 (Vitamin B1) 100 mg DAILY PO 04/30/17 09:00 05/03/17 08:44 (Oscal) 500 mg Q12HR PO 04/27/17 09:00 05/03/17 08:44 (Brethine Inj) 1 mg UNSCH PRN SQ 04/27/17 10:00 Piperacillin Sod/ Tazobactam Sod 50 ml @ 100 mls/hr Q8H IV 04/27/17 10:00 05/03/17 08:44 (Pepcid Inj) 10 mg Q12H IV PUSH 04/27/17 14:00 05/03/17 14:45 (Folate) 1 mg DAILY PO 04/27/17 13:30 05/03/17 08:44 (Theragran) 1 tab DAILY PO 04/27/17 13:30 05/03/17 08:44 Norepinephrine Bitartrate 250 ml @ 7.5 mls/hr TITRATE PRN IV 04/27/17 15:15 05/02/17 05:03 Micafungin Sodium 150 mg/Sodium Chloride 100 ml @ 100 mls/hr Q24H IV 04/27/17 22:00 05/02/17 20:36 Miscellaneous Information Patient in critical care unit? Ass... Q361D .XX 04/28/17 00:30 (D50w (Vial) Inj) 50 ml UNSCH PRN IV PUSH 04/28/17 07:00 (Glucagon Inj) 1 mg UNSCH PRN OTHER 04/28/17 07:00 (NovoLIN R SUPPLEMENTAL SCALE) 1 Q4HR SQ 04/28/17 08:00 05/03/17 16:06 (Lactulose Liq) 30 ml QID PO 04/28/17 18:00 05/02/17 20:35 (Xifaxan) 550 mg BID PO 04/28/17 21:00 05/03/17 08:44 (SoluCORTEF INJ) 50 mg Q12HR IV PUSH 04/29/17 21:00 05/03/17 08:43 Albumin Human 50 ml @ 60 mls/hr Q12H IV 04/30/17 18:00 05/03/17 05:14 (SandoSTATIN INJ) 50 mcg Q8HR IV PUSH 05/01/17 14:00 05/03/17 14:46 Potassium Chloride 100 ml @ 50 mls/hr Q2H PRN IV 05/03/17 08:00 05/03/17 12:08 Potassium Chloride 100 ml @ 50 mls/hr Q2H PRN IV 05/03/17 08:00 (K-Lyte Cl Eff) 50 meq UNSCH PRN PO 05/03/17 08:00 Potassium Chloride 100 ml @ 25 mls/hr UNSCH PRN IV 05/03/17 08:00 Potassium Chloride 100 ml @ 50 mls/hr Q2H PRN IV 05/03/17 08:00 Magnesium Sulfate 4 gm/Sodium Chloride 100 ml @ 50 mls/hr UNSCH PRN IV 05/03/17 08:00 (Mag-Ox) 800 mg UNSCH PRN PO 05/03/17 08:00 05/03/17 11:05 Magnesium Sulfate 2 gm/Sodium Chloride 100 ml @ 50 mls/hr UNSCH PRN IV 05/03/17 08:00 (K-Phos) 2,000 mg Q4H PRN PO 05/03/17 08:00 05/03/17 11:05 Sodium Phosphate 30 mmol/Sodium Chloride 250 ml @ 42 mls/hr UNSCH PRN IV 05/03/17 08:00 (K-Phos) 2,000 mg UNSCH PRN PO/TUBE 05/03/17 08:00 Potassium Phosphate 30 mmol/ Sodium Chloride 260 ml @ 42 mls/hr UNSCH PRN IV 05/03/17 08:00 (Free Water) 300 ml Q6HR G-TUBE 05/03/17 12:00 05/03/17 11:58 Allergies Allergies Coded Allergies codeine (Unverified Allergy, Severe, N/V, 04/26/17) propoxyphene (Unverified Allergy, Severe, HIVES, 04/26/17) Exam I&O / VS Vital Signs Date Time Temp Pulse Resp B/P (MAP) Pulse Ox O2 Delivery O2 Flow Rate FiO2 05/03/17 14:00 98 05/03/17 12:00 100 05/03/17 12:00 99.0 100 122/76 (91) 99 05/03/17 12:00 40 05/03/17 11:22 99 40 05/03/17 10:00 97 147/83 (104) 99 05/03/17 10:00 97 05/03/17 09:00 93 137/84 (101) 99 05/03/17 08:00 98 05/03/17 08:00 40 05/03/17 08:00 98.2 98 142/82 (102) 99 05/03/17 07:47 40 05/03/17 07:46 100 40 05/03/17 07:43 99 40 05/03/17 07:00 94 136/82 (100) 99 05/03/17 06:00 93 141/83 (102) 98 05/03/17 06:00 101 05/03/17 05:00 95 132/72 (92) 97 05/03/17 04:38 98 40 05/03/17 04:00 40 05/03/17 04:00 97 05/03/17 04:00 97.9 93 133/78 (96) 98 05/03/17 02:00 86 05/03/17 00:13 98 40 05/03/17 00:00 40 05/03/17 00:00 86 05/03/17 00:00 98.8 89 118/72 (87) 98 05/02/17 22:00 40 05/02/17 22:00 96 05/02/17 20:26 98 40 05/02/17 20:00 86 05/02/17 20:00 97.9 91 107/65 (79) 98 05/02/17 18:00 86 Exam Comments very lethargic CN intact MOTOR--minimal movement Objective Radiology Results MRI brain--chronic ischemic changes with no acute CVA Micro and Labs Laboratory Tests Test 05/03/17 06:20 White Blood Count 32.4 Red Blood Count 3.35 Hemoglobin 9.8 Hematocrit 30.2 Mean Corpuscular Volume 90.2 Mean Corpuscular Hemoglobin 29.2 Mean Corpuscular Hemoglobin Concent 32.4 Red Cell Distribution Width 14.1 Platelet Count 54 Mean Platelet Volume 12.0 Neutrophils (%) (Auto) 90.0 Lymphocytes (%) (Auto) 4.3 Monocytes (%) (Auto) 5.5 Eosinophils (%) (Auto) 0.0 Basophils (%) (Auto) 0.2 Neutrophils # (Auto) 29.2 Lymphocytes # (Auto) 1.4 Monocytes # (Auto) 1.8 Eosinophils # (Auto) 0.0 Basophils # (Auto) 0.1 CBC Comment AUTO DIFF Differential Total Cells Counted 100 Neutrophils % (Manual) 91 Lymphocytes % 3 Monocytes % 5 Neutrophils # (Manual) 29.8 Metamyelocytes 1 Differential Comment FINAL DIFF MANUAL Platelet Estimate LOW Platelet Morphology Comment ENLARGED Blood Urea Nitrogen 46 Creatinine 1.94 Random Glucose 155 Total Protein 6.6 Albumin 2.2 Calcium Level 7.6 Phosphorus Level 2.0 Magnesium Level 1.3 Alkaline Phosphatase 271 Aspartate Amino Transf (AST/SGOT) 184 Alanine Aminotransferase (ALT/SGPT) 66 Total Bilirubin 6.3 Sodium Level 147 Potassium Level 2.3 Chloride Level 111 Carbon Dioxide Level 25.8 Anion Gap 10 Estimat Glomerular Filtration Rate 35 Date/Time Source Procedure Growth Status 05/03/17 10:10 Blood Peripheral Aerobic Blood Culture Pending Received 05/03/17 10:10 Blood Peripheral Anaerobic Blood Culture Pending Received 04/30/17 17:25 Fluid Peritoneal Fluid Gram Stain - Final Complete 04/30/17 17:25 Fluid Peritoneal Fluid Body Fluid Culture - Final NO GROWTH IN 72 HRS.--AEROBICALLY OR ... Complete 05/02/17 08:10 Sputum Endotracheal Gram Stain - Final Resulted 05/02/17 08:10 Sputum Endotracheal Sputum Culture - Preliminary HEAVY GROWTH NORMAL RESPIRATORY SHERYL... Resulted 04/26/17 20:10 Urine Random Urine Urine Culture - Final Escherichia Coli Complete Tunde Decker PhD May 03, 2017 16:21
[2017-05-03] MEDS: MICAFUNGIN INJ 150 MG in SODIUM CHLORIDE 0.9% INJ 100 ML IV SCH (20:38)
--- NOTE | 2017-05-03 22:51 | HHI.IDPN ---
Subjective Subjective Remarks delayed entry - pt was seen earlier today pressors off remains on vent normothermic no ETT secretions down to 40 % repeat ascitic fluid with total WBC 168 worseinng leukocytosis - now 32 K Antibiotics zosyn azithro Allergies: Coded Allergies: codeine (Unverified Allergy, Severe, N/V, 04/26/17) propoxyphene (Unverified Allergy, Severe, HIVES, 04/26/17) Objective . Vital Signs Date Time Temp Pulse Resp B/P (MAP) Pulse Ox O2 Delivery O2 Flow Rate FiO2 05/03/17 20:00 40 05/03/17 20:00 95 05/03/17 20:00 98.7 96 19 139/79 (99) 99 05/03/17 19:34 100 40 05/03/17 18:00 97 05/03/17 18:00 97 135/89 (104) 100 05/03/17 17:00 97 146/92 (110) 99 05/03/17 16:40 99 40 05/03/17 16:38 99 40 05/03/17 16:00 96 05/03/17 16:00 40 05/03/17 16:00 100.0 96 123/81 (95) 99 05/03/17 15:00 95 125/76 (92) 99 05/03/17 14:00 98 05/03/17 14:00 98 123/75 (91) 99 05/03/17 13:00 101 137/78 (97) 99 05/03/17 12:00 100 05/03/17 12:00 99.0 100 122/76 (91) 99 05/03/17 12:00 40 05/03/17 11:22 99 40 05/03/17 10:00 97 147/83 (104) 99 05/03/17 10:00 97 05/03/17 09:00 93 137/84 (101) 99 05/03/17 08:00 98 05/03/17 08:00 40 05/03/17 08:00 98.2 98 142/82 (102) 99 05/03/17 07:47 40 05/03/17 07:46 100 40 05/03/17 07:43 99 40 05/03/17 07:00 94 136/82 (100) 99 05/03/17 06:00 93 141/83 (102) 98 05/03/17 06:00 101 05/03/17 05:00 95 132/72 (92) 97 05/03/17 04:38 98 40 05/03/17 04:00 40 05/03/17 04:00 97 05/03/17 04:00 97.9 93 133/78 (96) 98 05/03/17 02:00 86 05/03/17 00:13 98 40 05/03/17 00:00 40 05/03/17 00:00 86 05/03/17 00:00 98.8 89 118/72 (87) 98 05/03/17 05/03/17 05/04/17 15:00 23:00 07:00 Intake Total 968 ml Output Total 1475 ml Balance -507 ml Intake Oral 0 ml Tube Feeding 368 ml Other 600 ml Output Urine Total 1450 ml Drainage Total 25 ml # Bowel Movements 2 . Laboratory Tests Test 05/02/17 05:30 05/03/17 06:20 White Blood Count 24.6 TH/MM3 32.4 TH/MM3 Red Blood Count 3.30 MIL/MM3 3.35 MIL/MM3 Hemoglobin 9.6 GM/DL 9.8 GM/DL Hematocrit 30.1 % 30.2 % Mean Corpuscular Volume 91.1 FL 90.2 FL Mean Corpuscular Hemoglobin 29.1 PG 29.2 PG Mean Corpuscular Hemoglobin Concent 31.9 % 32.4 % Red Cell Distribution Width 13.7 % 14.1 % Platelet Count 60 TH/MM3 54 TH/MM3 Mean Platelet Volume 11.6 FL 12.0 FL Neutrophils (%) (Auto) 89.4 % 90.0 % Lymphocytes (%) (Auto) 4.9 % 4.3 % Monocytes (%) (Auto) 5.5 % 5.5 % Eosinophils (%) (Auto) 0.0 % 0.0 % Basophils (%) (Auto) 0.2 % 0.2 % Neutrophils # (Auto) 21.9 TH/MM3 29.2 TH/MM3 Lymphocytes # (Auto) 1.2 TH/MM3 1.4 TH/MM3 Monocytes # (Auto) 1.4 TH/MM3 1.8 TH/MM3 Eosinophils # (Auto) 0.0 TH/MM3 0.0 TH/MM3 Basophils # (Auto) 0.1 TH/MM3 0.1 TH/MM3 CBC Comment DIFF FINAL AUTO DIFF Differential Comment FINAL DIFF MANUAL Differential Total Cells Counted 100 Neutrophils % (Manual) 91 % Lymphocytes % 3 % Monocytes % 5 % Neutrophils # (Manual) 29.8 TH/MM3 Metamyelocytes 1 % Platelet Estimate LOW Platelet Morphology Comment ENLARGED Laboratory Tests Test 05/02/17 05:30 05/03/17 06:20 05/03/17 18:00 Blood Urea Nitrogen 45 MG/DL 46 MG/DL Creatinine 2.28 MG/DL 1.94 MG/DL Random Glucose 131 MG/DL 155 MG/DL Total Protein 5.9 GM/DL 6.6 GM/DL Albumin 1.7 GM/DL 2.2 GM/DL Calcium Level 7.4 MG/DL 7.6 MG/DL Alkaline Phosphatase 101 U/L 271 U/L Aspartate Amino Transf (AST/SGOT) 129 U/L 184 U/L Alanine Aminotransferase (ALT/SGPT) 47 U/L 66 U/L Total Bilirubin 4.3 MG/DL 6.3 MG/DL Sodium Level 146 MEQ/L 147 MEQ/L Potassium Level 3.6 MEQ/L 2.3 MEQ/L 2.3 MEQ/L Chloride Level 114 MEQ/L 111 MEQ/L Carbon Dioxide Level 22.1 MEQ/L 25.8 MEQ/L Anion Gap 10 MEQ/L 10 MEQ/L Estimat Glomerular Filtration Rate 29 ML/MIN 35 ML/MIN Protein Corrected Calcium 8.1 MG/DL Phosphorus Level 2.0 MG/DL Magnesium Level 1.3 MG/DL Microbiology Date/Time Source Procedure Growth Status 05/03/17 10:10 Blood Peripheral Aerobic Blood Culture Pending Received 05/03/17 10:10 Blood Peripheral Anaerobic Blood Culture Pending Received 05/03/17 08:35 Blood Peripheral Aerobic Blood Culture Pending Received 05/03/17 08:35 Blood Peripheral Anaerobic Blood Culture Pending Received 05/02/17 08:10 Sputum Endotracheal Gram Stain - Final Resulted 05/02/17 08:10 Sputum Endotracheal Sputum Culture - Preliminary HEAVY GROWTH NORMAL RESPIRATORY SHERYL... Resulted Imaging Last Impressions Chest X-Ray 05/03/17 0000 Signed Impressions: Service Date/Time: Wednesday, May 03, 2017 07:53 - CONCLUSION: Improving bilateral pulmonary infiltrates. Cliff Mcnair Jr., MD Brain MRI 05/02/17 0000 Signed Impressions: Service Date/Time: Tuesday, May 02, 2017 13:22 - CONCLUSION: 1. No evidence of acute infarction or acute hemorrhage. 2. Diffuse confluent disseminated white matter signal abnormalities in the supratentorial brain is nonspecific in appearance and could be due to diffuse white matter disease or ischemic process. Cliff Lugo MD Abdomen Ultrasound 04/30/17 0000 Signed Impressions: Service Date/Time: Sunday, April 30, 2017 11:40 - CONCLUSION: Moderate ascites is still present. Jesus Duncan MD Paracentesis 04/27/17 1452 Signed Impressions: Service Date/Time: Thursday, April 27, 2017 15:51 - CONCLUSION: 1. One complicated CT-guided paracentesis. 2. Profound hepatic steatosis. Wallace Cordoba MD Head CT 04/27/17 0000 Signed Impressions: Service Date/Time: Thursday, April 27, 2017 15:44 - CONCLUSION: Diffuse atrophy is present. Areas of encephalomalacia involving the right temporal tip and the left orbitofrontal cortices. No evidence of acute hemorrhage or edema Jesus Duncan MD Abdomen/Pelvis CT 04/26/17 1724 Signed Impressions: Service Date/Time: Wednesday, April 26, 2017 21:23 - CONCLUSION: 1. Severe abdomino-pelvic ascites. 2. Steatosis of the liver. 3. Right inguinal hernia. Cliff Lugo MD Physical Exam CONSTITUTIONAL/GENERAL: This is an adequately nourished patient, in no apparent distress. TUBES/LINES/DRAINS: SKIN: No jaundice, rashes, or lesions. Skin temperature appropriate. Not diaphoretic. EYES: Pupils equal and round and reactive. Extraocular motions intact. No scleral icterus. No injection or drainage. Fundi not examined. CARDIOVASCULAR: Regular rate and rhythm without murmurs, gallops, or rubs. No JVD. Peripheral pulses symmetric. RESPIRATORY/CHEST: Symmetric, unlabored respirations. Clear to auscultation. Breath sounds equal bilaterally. GASTROINTESTINAL: Abdomen soft, no reaction to palpation, distended. No hepato- splenomegaly, or palpable masses. No guarding. Bowel sounds present. GENITOURINARY: Without palpable bladder distension. Castellano catheter in place with small amount of tea coloured urine MUSCULOSKELETAL: Extremities without clubbing, cyanosis, or edema. NEUROLOGICAL: minimally responsive PSYCHIATRIC: unable to assess Assessment & Plan Remarks Sepsis, shock critically ill, stable ARF: resolving UTI, E.coli - ziegler S Ascitis, r/o SBP ? clx negative SBP - improving WBC counts Acute VDRF, PNA vs ARDS (more likely) - improving infiltrates SBP clx negative so far, but cell count cw SBP Leukocytosis , leukemoid reaction Diarrhea, c.diff negative - cont zosyn - cont micafungin - cont azithro for now dc Eda López MD May 03, 2017 22:51
[2017-05-04] VITALS (19 sets, daily range): BP systolic 125–161; BP diastolic 65–85; PULSE 85–99; RESP 17–18; TEMP 97.4–98.5; O2SAT 100
[2017-05-04] MEDS: FAMOTIDINE 20 MG/2 ML VIAL IV PUSH SCH ×2 (01:13→13:53)
[2017-05-04] MEDS: PIPERACIL-TAZO 3.375 GM PREMIX 50 ML IV SCH ×2 (01:14→09:50)
[2017-05-04] MEDS: INSULIN NovoLIN REGULAR SUPPLEMENTAL SCALE SQ SCH ×7 (01:14→23:25)
[2017-05-04 02:03] LABS: POTASSIUM 3.1 MEQ/L (3.5-5.1)
[2017-05-04] MEDS: FREE WATER G-TUBE SCH ×4 (05:12→23:19)
[2017-05-04] MEDS: OCTREOTIDE INJ 50 MCG/ML AMP IV PUSH SCH ×3 (05:12→23:17)
[2017-05-04] MEDS: ALBUMIN 25% INJ 50 ML IV SCH ×2 (05:12→17:15)
[2017-05-04 05:19] LABS: AUTOMATED NEUTROPHIL # 34.1 TH/MM3 (1.8-7.7); BASOPHIL # 0.1 TH/MM3 (0-0.2); BASOPHIL % 0.3 % (0.0-2.0); HEMATOCRIT 30.8 % (39.0-51.0); LYMPH % 3.1 % (9.0-44.0); LYMPHOCYTE # 1.2 TH/MM3 (1.0-4.8); MEAN CELL VOLUME 90.2 FL (80.0-100.0); MEAN CORPUSCULAR HEMOGLOBIN 28.6 PG (27.0-34.0); MEAN CORPUSCULAR HGB CONC 31.7 % (32.0-36.0); MONO % 6.8 % (0.0-8.0); NEUT % 89.8 % (16.0-70.0); PLATELET COUNT 54 TH/MM3 (150-450); RED BLOOD COUNT 3.42 MIL/MM3 (4.50-5.90); WHITE BLOOD COUNT 37.9 TH/MM3 (4.0-11.0)
[2017-05-04 05:21] LABS: HEMO FLAGS AUTO DIFF
[2017-05-04 05:50] LABS: BICARBONATE 29.2 MEQ/L (21.0-32.0); CALCIUM-PROTEIN CORRECTED 7.8 MG/DL (8.5-10.1)
[2017-05-04 06:04] LABS: POTASSIUM 2.6 MEQ/L (3.5-5.1)
[2017-05-04 06:53] LABS: BANDS 1 % (0-6); NEUTROPHIL # MANUAL DIFF 35.6 TH/MM3 (1.8-7.7); POLYS (SEG NEUTROPHILS) 93 % (16-70); WBC DIFF SAMPLE 100
[2017-05-04 06:54] LABS: PLATELET ESTIMATE SMEAR LOW (NORMAL)
[2017-05-04 06:55] LABS: PLATELET MORPHOLOGY ENLARGED (NORMAL); SCAN/DIFF FINAL DIFF MANUAL
--- NOTE | 2017-05-04 07:40 | HHI.CCPN ---
Subjective Remarks/Hospital Course Patient is a 61-year-old male with past medical history of EtOH abuse, chronic obstructive pulmonary disease, seizure disorder, cerebrovascular accident, who presented to [facility] emergency department earlier this morning via EMS, under supposedly a Dw[place] acted. The patient told the mini lab operator of the Hotel where he is staying that he wants to commit suicide. The police were called and the patient was brought in to the hospital. On arrival to the emergency department he was found to have leukocytosis with a WBC of 21.6 and was in renal failure with creatinine of 2.51. The patient also had mild lactic acidemia with elevated lactic acid level 2.4 and elevated AST: 121 with total bilirubin 2.9. He had an ABG done this morning on 4 liters oxygen was which showed a pH of 7.34, CO2 28 and pAO2 135, bicarb 15, saturation 96%. Chest x-ray In the ER showed mild interstitial past is in the upper left lung. He also had CT abdomen and pelvis done which showed severe ascites along with steatosis of the liver and right inguinal hernia. [facility]. Critical care medicine was consulted for critical care management. When seen in ICU the patient was lethargic, unresponsive. He was subsequently intubated and placed on mechanical ventilation for airway protection. In the ICU the patient was hypotensive with systolic blood pressure in the 90s, A right IJ emergent central line was placed. 04/28 Patient is intubated off sedation started on Levophed yesterday 12 mics. s /p CT guided paracentesis with removal 4L. 04/29 Patient remains intubated and sedated with Fentanyl drip. Levophed down 7 mics, vasopressin added yesterday. Afebrile. On Bicarb drip. 04/30 Patient remains sedated with Fentanyl and intubated. Required increase FIO2/PEEP overnight given additional Bumex 2mg IV x1. CXR yesterday showed diffuse b/l pulm infiltrates. Levophed down to 5 mics, off Vasopressin. 05/01 Patient remains intubated off sedation Levophed down 3 mics. s/p paracentesis at bedside yesterday with removal 4L. Afebrile. Renal function worse today with Cr: 2.40 from 2.09. 05/02 No events overnight. Sedated with fentanyl and intubated, On Levophed 2mics. Tolerated CPAP for several hrs.. Cr: 2.28 from 2.4 05/03 Patient remains intubated, on no sedation unresponsive. MRI brain yesterday showed no evidence of hemorrhage/infarction. 05/04 No events overnight. Remains obtunded/unresponsive. Tmax 100.0 Objective Vital Signs Date Time Temp Pulse Resp B/P (MAP) Pulse Ox O2 Delivery O2 Flow Rate FiO2 05/04/17 06:00 92 05/04/17 04:09 100 40 05/04/17 04:00 98.2 146/85 (105) 05/03/17 20:00 19 Intake and Output 05/04/17 05/04/17 05/05/17 08:00 16:00 00:00 Intake Total 1237 ml Output Total 1505 ml Balance -268 ml Result Diagram: 05/04/17 0500 05/04/17 0500 Other Results Laboratory Tests Test 05/03/17 18:00 05/04/17 01:10 05/04/17 05:00 Potassium Level 2.3 MEQ/L 3.1 MEQ/L 2.6 MEQ/L Phosphorus Level 1.4 MG/DL Magnesium Level 1.0 MG/DL White Blood Count 37.9 TH/MM3 Red Blood Count 3.42 MIL/MM3 Hemoglobin 9.8 GM/DL Hematocrit 30.8 % Mean Corpuscular Volume 90.2 FL Mean Corpuscular Hemoglobin 28.6 PG Mean Corpuscular Hemoglobin Concent 31.7 % Red Cell Distribution Width 14.0 % Platelet Count 54 TH/MM3 Mean Platelet Volume 11.2 FL Neutrophils (%) (Auto) 89.8 % Lymphocytes (%) (Auto) 3.1 % Monocytes (%) (Auto) 6.8 % Eosinophils (%) (Auto) 0.0 % Basophils (%) (Auto) 0.3 % Neutrophils # (Auto) 34.1 TH/MM3 Lymphocytes # (Auto) 1.2 TH/MM3 Monocytes # (Auto) 2.6 TH/MM3 Eosinophils # (Auto) 0.0 TH/MM3 Basophils # (Auto) 0.1 TH/MM3 CBC Comment AUTO DIFF Differential Total Cells Counted 100 Neutrophils % (Manual) 93 % Band Neutrophils % 1 % Lymphocytes % 1 % Monocytes % 5 % Neutrophils # (Manual) 35.6 TH/MM3 Differential Comment FINAL DIFF MANUAL Platelet Estimate LOW Platelet Morphology Comment ENLARGED Polychromasia % Blood Urea Nitrogen 45 MG/DL Creatinine 1.58 MG/DL Random Glucose 177 MG/DL Total Protein 6.1 GM/DL Albumin 2.1 GM/DL Calcium Level 7.3 MG/DL Alkaline Phosphatase 260 U/L Aspartate Amino Transf (AST/SGOT) 135 U/L Alanine Aminotransferase (ALT/SGPT) 67 U/L Total Bilirubin 7.0 MG/DL Sodium Level 152 MEQ/L Chloride Level 114 MEQ/L Carbon Dioxide Level 29.2 MEQ/L Anion Gap 9 MEQ/L Estimat Glomerular Filtration Rate 45 ML/MIN Protein Corrected Calcium 7.8 MG/DL Imaging Last Impressions Chest X-Ray 05/03/17 0000 Signed Impressions: Service Date/Time: Wednesday, May 03, 2017 07:53 - CONCLUSION: Improving bilateral pulmonary infiltrates. Cliff Mcnair Jr., MD Brain MRI 05/02/17 0000 Signed Impressions: Service Date/Time: Tuesday, May 02, 2017 13:22 - CONCLUSION: 1. No evidence of acute infarction or acute hemorrhage. 2. Diffuse confluent disseminated white matter signal abnormalities in the supratentorial brain is nonspecific in appearance and could be due to diffuse white matter disease or ischemic process. Cliff Lugo MD Abdomen Ultrasound 04/30/17 0000 Signed Impressions: Service Date/Time: Sunday, April 30, 2017 11:40 - CONCLUSION: Moderate ascites is still present. Jesus Duncan MD Paracentesis 04/27/17 1452 Signed Impressions: Service Date/Time: Thursday, April 27, 2017 15:51 - CONCLUSION: 1. One complicated CT-guided paracentesis. 2. Profound hepatic steatosis. Wallace Cordoba MD Head CT 04/27/17 0000 Signed Impressions: Service Date/Time: Thursday, April 27, 2017 15:44 - CONCLUSION: Diffuse atrophy is present. Areas of encephalomalacia involving the right temporal tip and the left orbitofrontal cortices. No evidence of acute hemorrhage or edema Jesus Duncan MD Abdomen/Pelvis CT 04/26/17 3924 Signed Impressions: Service Date/Time: Wednesday, April 26, 2017 21:23 - CONCLUSION: 1. Severe abdomino-pelvic ascites. 2. Steatosis of the liver. 3. Right inguinal hernia. Cliff Lugo MD Objective Remarks GENERAL: Patient is 61 yo critically ill intubated and on Levophed SKIN: Warm and dry. HEAD: Normocephalic. EYES: No scleral icterus. No injection or drainage. NECK: Supple, trachea midline. No JVD or lymphadenopathy. Orally intubated CARDIOVASCULAR: Regular rate and rhythm without murmurs, gallops, or rubs. RESPIRATORY: Breath sounds equal bilaterally. No accessory muscle use. GASTROINTESTINAL: non-tender, distended. MUSCULOSKELETAL: No cyanosis, or edema. Neuro: Unresponsive/obtunded A/P Assessment and Plan 1. VDRF 2. Encephalopathy. 3. Leukocytosis 4. Ascites rule out SBP 5. Acute kidney injury...improving 6. Urinary tract infection. 7. Hypokalemia. 8. Lactic acidemia.. resolved 9. Elevated AST. 10. ETOH abuse. 11. History of cerebrovascular accident and seizure disorder. 12. History of chronic obstructive pulmonary disease. 13. Electrolytes abnormalities Plan Neuro: Off sedation. Monitor neuro status. Neuro is following- Dr. Decker MRI brain 05/02: No evidence of infarction or hemorrhage Repeat EEG 05/02: Severe encephalopathy 04/27: EEG Mild- mod slowing. No epileptiform features. 04/27: CT brain: No acute findings On Lactulose 30ml QID, Rifaximin 550mg BID, Ammonia level: 29 On Thiamine, MVI, folic acid Pulm: On PRVC RR 14, TV 400, PEEP5, FIO2 40%. Continue with vent support and maintain sats above 92%. Bronchodilators, ICU vent bundle. SBT trials as cheryl CXR yesterday improvements in b/l pulm infiltrates CV: Off Levophed maintain MAP > 65 mmHg. Serial lactic acid monitoring. Lactic acid 2.8. Decrease Hydrocortisone- HC 25mg IV Q12 : Monitor renal function Is and Os, electrolytes replacement per protocol. Renal function is improving with Cr: 1.58 from 1.94 UOP: 2950 ml in 24 hrs Renal- Dr. Lane. Place on D5W@75ml/hr x 1liter, change Free water 300ml Q6. Monitor sodium level. CT scan of the abdomen and pelvis showed no evidence of hydronephrosis, masses or stones. GI: On tube feeds- Nepro @40 ml/hr, on Pepcid 10 mg IV q. 12 for GI prophylaxis Monitor LFT's, s/p CT guided paracentesis with removal 4 on 04/27 and repeat Paracentesis at bedside on 04/30 with 4L removal. Continue with albumin.. Follow up on fluid cx- NGTD. ID: Leukocytosis? Leukemoid reaction Continue with abx per ID ( On Zosyn, Micafungin, Azithromycin) monitor for signs of infections BC 05/03: NGTD, 05/02 sputum: normal resp james Urine culture: E.coli. C-diff 05/[address] abd/pelvis 04/26: Ascites , steatosis of live. Heme: Monitor CBC GI prophylaxis with Pepcid 10 mg IV q. 12 and DVT prophylaxis with SCDs. Endo: SSI for glucemic control Lines: Right IJ central line placed 04/27 Patient is critically ill with sepsis, resp failure , renal failure, encephalopathy and UTI. Palliative care is following Level 3 Sonny Khan MD May 04, 2017 07:40
[2017-05-04] MEDS ORDERED: DEXTROSE 5% IN WATE 1000ML INJ 1,000 ML IV SCH (07:45)
[2017-05-04] MEDS: THIAMINE HCL 100 MG TAB PO SCH (08:06)
[2017-05-04] MEDS: CALCIUM CARBONATE 1.25 GM (CA 500 MG) TAB PO SCH ×2 (08:06→21:00)
[2017-05-04] MEDS: MULTIVITAMIN TAB PO SCH (08:06)
[2017-05-04] MEDS: DOCUSATE SODIUM 50 MG/SENNA 8.6 MG TAB PO SCH ×2 (08:06→21:00)
[2017-05-04] MEDS: HYDROCORTISONE SOD SUCCINATE 100 MG VIAL IV PUSH SCH ×2 (08:06→21:00)
[2017-05-04] MEDS: FOLIC ACID 1 MG TAB PO SCH (08:06)
[2017-05-04] MEDS: AZITHROMYCIN 250 MG TAB PO SCH (08:06)
[2017-05-04] MEDS: SODIUM CHLORIDE 0.9% FLUSH 10 ML FLUSH IV FLUSH SCH ×2 (08:07→23:18)
--- NOTE | 2017-05-04 09:56 | HHI.NPPN ---
Subjective Renal Failure: Acute Interval History Off sedation, moving head but not waking up or following commands. Renal function improving. (Jayla Robins) Review of Systems General General Remarks unable to obtain (Jayla Robins) Objective Data Data 05/04/17 05/05/17 19:00 07:00 Intake Total 100 ml Balance 100 ml IV Total 100 ml Vital Signs Date Time Temp Pulse Resp B/P (MAP) Pulse Ox O2 Delivery O2 Flow Rate FiO2 05/04/17 09:41 100 40 05/04/17 09:41 40 05/04/17 08:00 91 05/04/17 08:00 97.4 91 17 137/82 (100) 100 05/04/17 06:00 92 05/04/17 04:09 100 40 05/04/17 04:00 40 05/04/17 04:00 94 05/04/17 04:00 98.2 94 146/85 (105) 100 05/04/17 02:00 97 05/04/17 00:00 98.5 99 141/82 (101) 100 05/04/17 00:00 99 05/04/17 00:00 40 05/03/17 23:16 100 40 05/03/17 22:00 97 05/03/17 20:00 40 05/03/17 20:00 95 05/03/17 20:00 98.7 96 19 139/79 (99) 99 05/03/17 19:34 100 40 05/03/17 18:00 97 05/03/17 18:00 97 135/89 (104) 100 05/03/17 17:00 97 146/92 (110) 99 05/03/17 16:40 99 40 05/03/17 16:38 99 40 05/03/17 16:00 96 05/03/17 16:00 40 05/03/17 16:00 100.0 96 123/81 (95) 99 05/03/17 15:00 95 125/76 (92) 99 05/03/17 14:00 98 05/03/17 14:00 98 123/75 (91) 99 05/03/17 13:00 101 137/78 (97) 99 05/03/17 12:00 100 05/03/17 12:00 99.0 100 122/76 (91) 99 05/03/17 12:00 40 05/03/17 11:22 99 40 05/03/17 10:00 97 147/83 (104) 99 05/03/17 10:00 97 (Jayla Robins) -: 05/04/17 0500 05/04/17 0500 Microbiology 05/03/17 Aerobic Blood Culture, Received Pending 05/03/17 Anaerobic Blood Culture, Received Pending Imaging Last 72 hours Impressions Chest X-Ray 05/03/17 0000 Signed Impressions: Service Date/Time: Wednesday, May 03, 2017 07:53 - CONCLUSION: Improving bilateral pulmonary infiltrates. Cliff Mcnair Jr., MD Brain MRI 05/02/17 0000 Signed Impressions: Service Date/Time: Tuesday, May 02, 2017 13:22 - CONCLUSION: 1. No evidence of acute infarction or acute hemorrhage. 2. Diffuse confluent disseminated white matter signal abnormalities in the supratentorial brain is nonspecific in appearance and could be due to diffuse white matter disease or ischemic process. Cliff Lugo MD Tubes & Lines: Castellano Tubes & Lines Comment TLC right IJ (Jayla Robins) Physical Exam General Appearance: No Acute Distress, Comfortable, Malnourished Appearance Remarks unresponsive on vent, moves to noxious stimuli (Jayla Robins) Throat Throat Exam: Oral Mucosa [place] & Moist (Jayla Robins) Neck Neck Exam: Neck Supple (Jayla Robins) Pulmonary Resp Exam: Breath Sounds Equal, Crackles Resp Remarks vented lung sounds (Jayla Robins) Cardiology CV Exam: Regular (Jayla Robins) Gastrointestinal/Abdomen GI Exam: Soft, Non-Tender, Bowel Sounds Present, Positive Bowel Movement GI Remarks LLQ leaking at site of paracentesis ascites (Jayla Robins) Genitourinary Exam: Clear Urine (Jayla Robins) Musculoskeletal MS Exam: Joints Intact, Normal Tone, Unable to Ambulate (Jayla Robins) Integumentary Skin Exam: Warm, Dry (Jayla Robins) Extremeties Extremities Exam: Pedal Pulses Palpable, Moderate Edema Extremeties Remarks moderate upper extremity edema (Jayla Robins) Neurologic Neuro Exam: Moving All Extremities, Obtunded, Unresponsive (Jayla Robins) VTE Prophylaxis Device: SCDs (Jayla Robins) Assessment/Plan Assessment Summary: Hypertension Electrolyte Assessment: Hypernatremia, Hypokalemia, Hypomagnesemia Problem List: (1) Acute kidney injury ICD Codes: N17.9 - Acute kidney failure, unspecified Status: Acute Plan: BOBBI could be due to sepsis, and ATN. Renal function is improving He is non oliguric Off diuretics, has some upper extremity edema On D5W Free water through OG tube increased. Obtain daily labs, replace electrolytes as needed Prognosis is poor at this time Palliative care and/or hospice. Attempting to locate POA. (2) Electrolyte abnormality ICD Codes: E87.8 - Other disorders of electrolyte and fluid balance, not elsewhere classified Plan: Hypokalemia, Hypophosphatemia, and Hypomagnesemia Replacement protocol is ongoing. (3) Hypernatremia ICD Codes: E87.0 - Hyperosmolality and hypernatremia Plan: D5W started at 75 cc/hr Free water through OG tube (4) Severe sepsis ICD Codes: A41.9 - Sepsis, unspecified organism; R65.20 - Severe sepsis without septic shock Status: Acute Plan: Significant leukocytosis, leukemoid reaction Blood cultures negative Urine culture positive; on Zosyn, micafungin and Zithromax Monitor clinically, continue supportive care, vent management per protocol. ID following. (5) Alcohol abuse ICD Codes: F10.10 - Alcohol abuse Status: Chronic Plan: Withdrawal protocol as ordered (6) Metabolic acidosis ICD Codes: E87.2 - Acidosis Plan: Continue to monitor. Lactulose causes bicarbonate loss though GI. Renal failure was also contributing. (Jayla Robins) Plan patient was seen and examined. Renal function has improved. Continue free water administration through feeding tube, and D5W. Continue to replace potassium. (Robert Lane MD) Jayla Robins May 04, 2017 09:[address] MD May 04, 2017 10:53
--- NOTE | 2017-05-04 13:06 | HHI.IDPN ---
Subjective Subjective Remarks doing poorly WBC up to 37 K low grade fever high volume mucosy stools Antibiotics zosyn azithro Allergies: Coded Allergies: codeine (Unverified Allergy, Severe, N/V, 04/26/17) propoxyphene (Unverified Allergy, Severe, HIVES, 04/26/17) Objective . Vital Signs Date Time Temp Pulse Resp B/P (MAP) Pulse Ox O2 Delivery O2 Flow Rate FiO2 05/04/17 10:00 93 05/04/17 09:41 100 40 05/04/17 09:41 40 05/04/17 08:00 40 05/04/17 08:00 91 05/04/17 08:00 97.4 91 17 137/82 (100) 100 05/04/17 06:00 92 05/04/17 04:09 100 40 05/04/17 04:00 40 05/04/17 04:00 94 05/04/17 04:00 98.2 94 146/85 (105) 100 05/04/17 02:00 97 05/04/17 00:00 98.5 99 141/82 (101) 100 05/04/17 00:00 99 05/04/17 00:00 40 05/03/17 23:16 100 40 05/03/17 22:00 97 05/03/17 20:00 40 05/03/17 20:00 95 05/03/17 20:00 98.7 96 19 139/79 (99) 99 05/03/17 19:34 100 40 05/03/17 18:00 97 05/03/17 18:00 97 135/89 (104) 100 05/03/17 17:00 97 146/92 (110) 99 05/03/17 16:40 99 40 05/03/17 16:38 99 40 05/03/17 16:00 96 05/03/17 16:00 40 05/03/17 16:00 100.0 96 123/81 (95) 99 05/03/17 15:00 95 125/76 (92) 99 05/03/17 14:00 98 05/03/17 14:00 98 123/75 (91) 99 05/04/17 05/04/17 05/05/17 15:00 23:00 07:00 Intake Total 150 ml Balance 150 ml IV Total 150 ml . Laboratory Tests Test 05/03/17 06:20 05/04/17 05:00 White Blood Count 32.4 TH/MM3 37.9 TH/MM3 Red Blood Count 3.35 MIL/MM3 3.42 MIL/MM3 Hemoglobin 9.8 GM/DL 9.8 GM/DL Hematocrit 30.2 % 30.8 % Mean Corpuscular Volume 90.2 FL 90.2 FL Mean Corpuscular Hemoglobin 29.2 PG 28.6 PG Mean Corpuscular Hemoglobin Concent 32.4 % 31.7 % Red Cell Distribution Width 14.1 % 14.0 % Platelet Count 54 TH/MM3 54 TH/MM3 Mean Platelet Volume 12.0 FL 11.2 FL Neutrophils (%) (Auto) 90.0 % 89.8 % Lymphocytes (%) (Auto) 4.3 % 3.1 % Monocytes (%) (Auto) 5.5 % 6.8 % Eosinophils (%) (Auto) 0.0 % 0.0 % Basophils (%) (Auto) 0.2 % 0.3 % Neutrophils # (Auto) 29.2 TH/MM3 34.1 TH/MM3 Lymphocytes # (Auto) 1.4 TH/MM3 1.2 TH/MM3 Monocytes # (Auto) 1.8 TH/MM3 2.6 TH/MM3 Eosinophils # (Auto) 0.0 TH/MM3 0.0 TH/MM3 Basophils # (Auto) 0.1 TH/MM3 0.1 TH/MM3 CBC Comment AUTO DIFF AUTO DIFF Differential Total Cells Counted 100 100 Neutrophils % (Manual) 91 % 93 % Lymphocytes % 3 % 1 % Monocytes % 5 % 5 % Neutrophils # (Manual) 29.8 TH/MM3 35.6 TH/MM3 Metamyelocytes 1 % Differential Comment FINAL DIFF MANUAL FINAL DIFF MANUAL Platelet Estimate LOW LOW Platelet Morphology Comment ENLARGED ENLARGED Band Neutrophils % 1 % Polychromasia % Laboratory Tests Test 05/03/17 06:20 05/03/17 18:00 05/04/17 01:10 05/04/17 05:00 Blood Urea Nitrogen 46 MG/DL 45 MG/DL Creatinine 1.94 MG/DL 1.58 MG/DL Random Glucose 155 MG/DL 177 MG/DL Total Protein 6.6 GM/DL 6.1 GM/DL Albumin 2.2 GM/DL 2.1 GM/DL Calcium Level 7.6 MG/DL 7.3 MG/DL Phosphorus Level 2.0 MG/DL 1.4 MG/DL Magnesium Level 1.3 MG/DL 1.0 MG/DL Alkaline Phosphatase 271 U/L 260 U/L Aspartate Amino Transf (AST/SGOT) 184 U/L 135 U/L Alanine Aminotransferase (ALT/SGPT) 66 U/L 67 U/L Total Bilirubin 6.3 MG/DL 7.0 MG/DL Sodium Level 147 MEQ/L 152 MEQ/L Potassium Level 2.3 MEQ/L 2.3 MEQ/L 3.1 MEQ/L 2.6 MEQ/L Chloride Level 111 MEQ/L 114 MEQ/L Carbon Dioxide Level 25.8 MEQ/L 29.2 MEQ/L Anion Gap 10 MEQ/L 9 MEQ/L Estimat Glomerular Filtration Rate 35 ML/MIN 45 ML/MIN Protein Corrected Calcium 7.8 MG/DL Microbiology Date/Time Source Procedure Growth Status 05/03/17 10:10 Blood Peripheral Aerobic Blood Culture - Preliminary NO GROWTH IN 1 DAY Resulted 05/03/17 10:10 Blood Peripheral Anaerobic Blood Culture - Preliminary NO GROWTH IN 1 DAY Resulted 05/03/17 08:35 Blood Peripheral Aerobic Blood Culture - Preliminary NO GROWTH IN 1 DAY Resulted 05/03/17 08:35 Blood Peripheral Anaerobic Blood Culture - Preliminary NO GROWTH IN 1 DAY Resulted 05/02/17 08:10 Sputum Endotracheal Gram Stain - Final Complete 05/02/17 08:10 Sputum Endotracheal Sputum Culture - Final HEAVY GROWTH NORMAL RESPIRATORY SHERYL Complete Imaging Last Impressions Chest X-Ray 05/03/17 0000 Signed Impressions: Service Date/Time: Wednesday, May 03, 2017 07:53 - CONCLUSION: Improving bilateral pulmonary infiltrates. Cliff Mcnair Jr., MD Brain MRI 05/02/17 0000 Signed Impressions: Service Date/Time: Tuesday, May 02, 2017 13:22 - CONCLUSION: 1. No evidence of acute infarction or acute hemorrhage. 2. Diffuse confluent disseminated white matter signal abnormalities in the supratentorial brain is nonspecific in appearance and could be due to diffuse white matter disease or ischemic process. Cliff Lugo MD Abdomen Ultrasound 04/30/17 0000 Signed Impressions: Service Date/Time: Sunday, April 30, 2017 11:40 - CONCLUSION: Moderate ascites is still present. Jesus Duncan MD Paracentesis 04/27/17 1452 Signed Impressions: Service Date/Time: Thursday, April 27, 2017 15:51 - CONCLUSION: 1. One complicated CT-guided paracentesis. 2. Profound hepatic steatosis. Wallace Cordoba MD Head CT 04/27/17 0000 Signed Impressions: Service Date/Time: Thursday, April 27, 2017 15:44 - CONCLUSION: Diffuse atrophy is present. Areas of encephalomalacia involving the right temporal tip and the left orbitofrontal cortices. No evidence of acute hemorrhage or edema Jesus Duncan MD Abdomen/Pelvis CT 04/26/17 1724 Signed Impressions: Service Date/Time: Wednesday, April 26, 2017 21:23 - CONCLUSION: 1. Severe abdomino-pelvic ascites. 2. Steatosis of the liver. 3. Right inguinal hernia. Cliff Lugo MD Physical Exam CONSTITUTIONAL/GENERAL: This is an adequately nourished patient, in no apparent distress. TUBES/LINES/DRAINS: SKIN: No jaundice, rashes, or lesions. Skin temperature appropriate. Not diaphoretic. EYES: Pupils equal and round and reactive. Extraocular motions intact. No scleral icterus. No injection or drainage. Fundi not examined. CARDIOVASCULAR: Regular rate and rhythm without murmurs, gallops, or rubs. No JVD. Peripheral pulses symmetric. RESPIRATORY/CHEST: Symmetric, unlabored respirations. Clear to auscultation. Breath sounds equal bilaterally. GASTROINTESTINAL: Abdomen soft, grimacing to palpation, quite distended. No hepato-splenomegaly, or palpable masses. No guarding. Bowel sounds present. GENITOURINARY: Without palpable bladder distension. Castellano catheter in place with small amount of tea coloured urine MUSCULOSKELETAL: Extremities without clubbing, cyanosis, or edema. NEUROLOGICAL: minimally responsive PSYCHIATRIC: unable to assess Assessment & Plan Remarks Sepsis, shock critically ill, stable ARF: resolving UTI, E.coli - ziegler S Ascitis, r/o SBP ? clx negative SBP - improving WBC counts Acute VDRF, PNA vs ARDS (more likely) - improving infiltrates SBP clx negative so far, but cell count cw SBP Leukocytosis , leukemoid reaction Diarrhea, c.diff negative, bu clinically very suspicious for C.diff - dc zosyn -start cefepime - cont micafungin - cont azithro for now oral vanco, IV flagyl repeat C.diff repeat CT Eda Hodge MD May 04, 2017 13:06
[2017-05-04 13:42] LABS: MAGNESIUM 1.8 MG/DL (1.5-2.5)
[2017-05-04] MEDS ORDERED: DIATRIZOATE MEGLUM/DIATRIZOATE SOD 9 ML CUP PO ONE (14:00)
--- NOTE | 2017-05-04 14:44 | HHI.HCPN ---
Reason for visit a. To assist with evaluation and management of symptoms including: encephalopathy, dyspnea b. To assist medical decision maker(s) with: better understanding of current medical conditions; weighing benefits/burdens of medical treatment options; making medical treatment decisions. Subjective/Interval History Pt seen to follow up on identification of possible decision maker/ conditions/ goals. D/w CM yesterday afternoon, palliative SW also d/w financial who ran [employer]- - numbers returned were not persons who have any knowledge or relation to pt. D /w legal dept. Sharon Mohan yesterday afternoon-- review of attempts made thus far based on available information, appropriate to proceed w friend/landlord as proxy if she wishes to serve as such. Will need to d/w friend Opal to determine if she wishes to serve as proxy. Stable, tolerating CPAP for a few hrs. Pt not able to medically extubate at this time given mental status not expected to protect airway. Renal functions improved. ID continues to follow- WBC still elevated 37, though cultures negative. + cont to have diarrhea, neg for cdiff. ID d/c zosyn, started cefepime cont micafungin, cont azithromycin, oral vanco, IV flagyl. ID ordered repeat CT abdomen/pelvis. To my exam: lethargic/minimally responsive. Moves head side to side at times. withdraws feet to pain stimuli, does not withdraw hands. No eye opening. breathing comfortably on CPAP. Does not follow any commands. . Family/friend interactions Following exam, call to friend/landlord Opal- both phone # ring until voicemail, but VM box is full. Notified nursing to provide her palliative contact information if she calls/visits. . Advance Directives Living Will: Never completed Health Care Surrogate: Never completed Durable Power of Naphthalene Still Operator: Never completed Objective Vital Signs Date Time Temp Pulse Resp B/P (MAP) Pulse Ox O2 Delivery O2 Flow Rate FiO2 05/04/17 12:00 90 05/04/17 12:00 40 05/04/17 10:00 93 05/04/17 09:41 100 40 05/04/17 09:41 40 05/04/17 08:00 40 05/04/17 08:00 91 05/04/17 08:00 97.4 91 17 137/82 (100) 100 05/04/17 06:00 92 05/04/17 04:09 100 40 05/04/17 04:00 40 05/04/17 04:00 94 05/04/17 04:00 98.2 94 146/85 (105) 100 05/04/17 02:00 97 05/04/17 00:00 98.5 99 141/82 (101) 100 05/04/17 00:00 99 05/04/17 00:00 40 05/03/17 23:16 100 40 05/03/17 22:00 97 05/03/17 20:00 40 05/03/17 20:00 95 05/03/17 20:00 98.7 96 19 139/79 (99) 99 05/03/17 19:34 100 40 05/03/17 18:00 97 05/03/17 18:00 97 135/89 (104) 100 05/03/17 17:00 97 146/92 (110) 99 05/03/17 16:40 99 40 05/03/17 16:38 99 40 05/03/17 16:00 96 05/03/17 16:00 40 05/03/17 16:00 100.0 96 123/81 (95) 99 05/03/17 15:00 95 125/76 (92) 99 Intake & Output 05/04/17 05/04/17 06:59 18:59 Intake Total 1787 ml 150 ml Output Total 1505 ml Balance 282 ml 150 ml IV Total 750 ml 150 ml Tube Feeding 437 ml Other 600 ml Output Urine Total 1500 ml Drainage Total 5 ml # Bowel Movements 4 Physical Exam CONSTITUTIONAL/GENERAL: Chronically ill-appearing patient, minimally responsive on mechanical vent TUBES/LINES/DRAINS: Right IJ central line, ET tube, OG tube, augustin catheter, wound drainage bag LLQ SKIN: Skin temperature appropriate warm. wound drainage bag LLQ- reported paracentesis site. Chronic scaling, thickening noted to skin bilateral lower extremities especially to feet. HEAD: Atraumatic. Normocephalic. EYES: Pupils 2 mm, questionable reaction to light. No scleral icterus. No injection or drainage. Fundi not examined. CARDIOVASCULAR: Regular rate and rhythm without murmur. No JVD. Unable to palpate pedal pulses. Radial pulses palpable.+ Edema bilateral upper extremities RESPIRATORY/CHEST: Symmetric unlabored respirations via ETT to mech vent on CPAP , clear, equal bilaterally GASTROINTESTINAL: Abdomen soft, nondistended. no readily palpable masses. OG w TF infusing. BS normoactive GENITOURINARY: Without palpable bladder distension. dark yellow urine present in catheter NEUROLOGICAL: no sedation, mechanical vent. Minimally responsive to exam. Withdraws bilateral lower extremities slightly to pain stimuli does not withdrawal upper extremities. PSYCHIATRIC: Limited assessment due to clinical condition. Diagnostic Tests Laboratory Laboratory Tests Test 05/02/17 05:30 05/02/17 08:20 05/03/17 06:20 05/03/17 18:00 White Blood Count 24.6 TH/MM3 (4.0-11.0) 32.4 TH/MM3 (4.0-11.0) Red Blood Count 3.30 MIL/MM3 (4.50-5.90) 3.35 MIL/MM3 (4.50-5.90) Hemoglobin 9.6 GM/DL (13.0-17.0) 9.8 GM/DL (13.0-17.0) Hematocrit 30.1 % (39.0-51.0) 30.2 % (39.0-51.0) Mean Corpuscular Volume 91.1 FL (80.0-100.0) 90.2 FL (80.0-100.0) Mean Corpuscular Hemoglobin 29.1 PG (27.0-34.0) 29.2 PG (27.0-34.0) Mean Corpuscular Hemoglobin Concent 31.9 % (32.0-36.0) 32.4 % (32.0-36.0) Red Cell Distribution Width 13.7 % (11.6-17.2) 14.1 % (11.6-17.2) Platelet Count 60 TH/MM3 (150-450) 54 TH/MM3 (150-450) Mean Platelet Volume 11.6 FL (7.0-11.0) 12.0 FL (7.0-11.0) Neutrophils (%) (Auto) 89.4 % (16.0-70.0) 90.0 % (16.0-70.0) Lymphocytes (%) (Auto) 4.9 % (9.0-44.0) 4.3 % (9.0-44.0) Monocytes (%) (Auto) 5.5 % (0.0-8.0) 5.5 % (0.0-8.0) Eosinophils (%) (Auto) 0.0 % (0.0-4.0) 0.0 % (0.0-4.0) Basophils (%) (Auto) 0.2 % (0.0-2.0) 0.2 % (0.0-2.0) Neutrophils # (Auto) 21.9 TH/MM3 (1.8-7.7) 29.2 TH/MM3 (1.8-7.7) Lymphocytes # (Auto) 1.2 TH/MM3 (1.0-4.8) 1.4 TH/MM3 (1.0-4.8) Monocytes # (Auto) 1.4 TH/MM3 (0-0.9) 1.8 TH/MM3 (0-0.9) Eosinophils # (Auto) 0.0 TH/MM3 (0-0.4) 0.0 TH/MM3 (0-0.4) Basophils # (Auto) 0.1 TH/MM3 (0-0.2) 0.1 TH/MM3 (0-0.2) CBC Comment DIFF FINAL AUTO DIFF Differential Comment FINAL DIFF MANUAL Blood Urea Nitrogen 45 MG/DL (7-18) 46 MG/DL (7-18) Creatinine 2.28 MG/DL (0.60-1.30) 1.94 MG/DL (0.60-1.30) Random Glucose 131 MG/DL (74-106) 155 MG/DL (74-106) Total Protein 5.9 GM/DL (6.4-8.2) 6.6 GM/DL (6.4-8.2) Albumin 1.7 GM/DL (3.4-5.0) 2.2 GM/DL (3.4-5.0) Calcium Level 7.4 MG/DL (8.5-10.1) 7.6 MG/DL (8.5-10.1) Alkaline Phosphatase 101 U/L (45-117) 271 U/L (45-117) Aspartate Amino Transf (AST/SGOT) 129 U/L (15-37) 184 U/L (15-37) Alanine Aminotransferase (ALT/SGPT) 47 U/L (12-78) 66 U/L (12-78) Total Bilirubin 4.3 MG/DL (0.2-1.0) 6.3 MG/DL (0.2-1.0) Sodium Level 146 MEQ/L (136-145) 147 MEQ/L (136-145) Potassium Level 3.6 MEQ/L (3.5-5.1) 2.3 MEQ/L (3.5-5.1) 2.3 MEQ/L (3.5-5.1) Chloride Level 114 MEQ/L (98-107) 111 MEQ/L (98-107) Carbon Dioxide Level 22.1 MEQ/L (21.0-32.0) 25.8 MEQ/L (21.0-32.0) Anion Gap 10 MEQ/L (5-15) 10 MEQ/L (5-15) Estimat Glomerular Filtration Rate 29 ML/MIN (>89) 35 ML/MIN (>89) Protein Corrected Calcium 8.1 MG/DL (8.5-10.1) Blood Gas Puncture Site LT RADIAL Blood Gas Patient Temperature 98.6 Blood Gas HCO3 20 mmol/L (22-26) Blood Gas Base Excess -4.4 mmol/L (-2-2) Blood Gas Oxygen Saturation 92 % (90-100) Arterial Blood pH 7.38 (7.380-7.420) Arterial Blood Partial Pressure CO2 34 mmHg (38-42) Arterial Blood Partial Pressure O2 79 mmHg (61-120) Arterial Blood Oxygen Content 12.8 Vol % (12.0-20.0) Arterial Blood Carboxyhemoglobin 1.2 % (0-4) Arterial Blood Methemoglobin 1.2 % (0-2) Blood Gas Hemoglobin 9.8 G/DL (12.0-16.0) Oxygen Delivery Device VENTILATOR Blood Gas Ventilator Setting CPAP 5/10PS Blood Gas Inspired Oxygen 40 % Differential Total Cells Counted 100 Neutrophils % (Manual) 91 % (16-70) Lymphocytes % 3 % (9-44) Monocytes % 5 % (0-8) Neutrophils # (Manual) 29.8 TH/MM3 (1.8-7.7) Metamyelocytes 1 % (0-1) Platelet Estimate LOW (NORMAL) Platelet Morphology Comment ENLARGED (NORMAL) Phosphorus Level 2.0 MG/DL (2.5-4.9) Magnesium Level 1.3 MG/DL (1.5-2.5) Test 11/28/17 01:10 05/04/17 05:00 05/04/17 12:50 Potassium Level 3.1 MEQ/L (3.5-5.1) 2.6 MEQ/L (3.5-5.1) Phosphorus Level 1.4 MG/DL (2.5-4.9) 3.2 MG/DL (2.5-4.9) Magnesium Level 1.0 MG/DL (1.5-2.5) 1.8 MG/DL (1.5-2.5) White Blood Count 37.9 TH/MM3 (4.0-11.0) Red Blood Count 3.42 MIL/MM3 (4.50-5.90) Hemoglobin 9.8 GM/DL (13.0-17.0) Hematocrit 30.8 % (39.0-51.0) Mean Corpuscular Volume 90.2 FL (80.0-100.0) Mean Corpuscular Hemoglobin 28.6 PG (27.0-34.0) Mean Corpuscular Hemoglobin Concent 31.7 % (32.0-36.0) Red Cell Distribution Width 14.0 % (11.6-17.2) Platelet Count 54 TH/MM3 (150-450) Mean Platelet Volume 11.2 FL (7.0-11.0) Neutrophils (%) (Auto) 89.8 % (16.0-70.0) Lymphocytes (%) (Auto) 3.1 % (9.0-44.0) Monocytes (%) (Auto) 6.8 % (0.0-8.0) Eosinophils (%) (Auto) 0.0 % (0.0-4.0) Basophils (%) (Auto) 0.3 % (0.0-2.0) Neutrophils # (Auto) 34.1 TH/MM3 (1.8-7.7) Lymphocytes # (Auto) 1.2 TH/MM3 (1.0-4.8) Monocytes # (Auto) 2.6 TH/MM3 (0-0.9) Eosinophils # (Auto) 0.0 TH/MM3 (0-0.4) Basophils # (Auto) 0.1 TH/MM3 (0-0.2) CBC Comment AUTO DIFF Differential Total Cells Counted 100 Neutrophils % (Manual) 93 % (16-70) Band Neutrophils % 1 % (0-6) Lymphocytes % 1 % (9-44) Monocytes % 5 % (0-8) Neutrophils # (Manual) 35.6 TH/MM3 (1.8-7.7) Differential Comment FINAL DIFF MANUAL Platelet Estimate LOW (NORMAL) Platelet Morphology Comment ENLARGED (NORMAL) Polychromasia % (0.0-1.9) Blood Urea Nitrogen 45 MG/DL (7-18) Creatinine 1.58 MG/DL (0.60-1.30) Random Glucose 177 MG/DL (74-106) Total Protein 6.1 GM/DL (6.4-8.2) Albumin 2.1 GM/DL (3.4-5.0) Calcium Level 7.3 MG/DL (8.5-10.1) Alkaline Phosphatase 260 U/L (45-117) Aspartate Amino Transf (AST/SGOT) 135 U/L (15-37) Alanine Aminotransferase (ALT/SGPT) 67 U/L (12-78) Total Bilirubin 7.0 MG/DL (0.2-1.0) Sodium Level 152 MEQ/L (136-145) Chloride Level 114 MEQ/L (98-107) Carbon Dioxide Level 29.2 MEQ/L (21.0-32.0) Anion Gap 9 MEQ/L (5-15) Estimat Glomerular Filtration Rate 45 ML/MIN (>89) Protein Corrected Calcium 7.8 MG/DL (8.5-10.1) Result Diagram: 05/04/17 0500 05/04/17 0500 Microbiology Microbiology Date/Time Source Procedure Growth Status 05/03/17 10:10 Blood Peripheral Aerobic Blood Culture - Preliminary NO GROWTH IN 1 DAY Resulted 05/03/17 10:10 Blood Peripheral Anaerobic Blood Culture - Preliminary NO GROWTH IN 1 DAY Resulted 05/03/17 08:35 Blood Peripheral Aerobic Blood Culture - Preliminary NO GROWTH IN 1 DAY Resulted 05/03/17 08:35 Blood Peripheral Anaerobic Blood Culture - Preliminary NO GROWTH IN 1 DAY Resulted 05/02/17 08:10 Sputum Endotracheal Gram Stain - Final Complete 05/02/17 08:10 Sputum Endotracheal Sputum Culture - Final HEAVY GROWTH NORMAL RESPIRATORY SHERYL Complete Procedures 04/27 intubation, right IJ central line 04/28 CT-guided Paracentesis, 4 L . Assessment and Plan Disease Oriented Problem List: (1) Respiratory failure, acute (2) COPD (chronic obstructive pulmonary disease) (3) Tobacco abuse (4) Hepatic encephalopathy (5) Pneumonia (6) Severe sepsis (7) Acute kidney injury (8) Hypokalemia (9) Alcohol abuse (10) Metabolic acidosis Symptom Scale: (1) Dyspnea (2) Encephalopathy Pertinent Non-Medical Issues Psychosocial:Per EMR patient reported to be homeless though at times resides in a hotel room. Per case management record- patient reports no Social Security number or contact persons. Per prior visit ID in EMR, note a scanned ID card documenting SSN #[id number]. During a prior visit in EMR 2014, contacts documented a brother Edin Goode @ [address] [place] [address] [phone]--> case management notes that the patient reports brother however he was living in that mobile home with his sister in law. Multiple hospitalizations note patient homeless and no other family reported. Spiritual: Not known Legal:Patient currently intubated and sedated and unable to participate in decision-making. Prior to intubation and sedation ED physician notes that patient did not have the capacity to make his own decisions. Patient previously listed a brother [Edin Goode] as a contact during past hospitalizations, however per later records/admissions he later indicated this brother . No other family contact has been listed. need to obtain [employer] report to locate next of kin; if no next of kin can be identified may need appointed /temporary legal decision-maker such as social work advantage. SSN# per prior ID card scanned in EMR: [id number]. Ethical issues impacting care:no ethical issues identified at this time Important Contacts None listed; Patient previously reported a brother Edin Goode in [employer] as a contact however this person during later visits was reported to be . No other family is known at this time. Landlord/friend Opal Leon[facility]; [facility]. [phone] ritesh // office . Prognosis Condition is critical, Prognosis at this time guarded in terms of survival and recovery. Patient with long history of EtOH and various complications secondary to. Now with multiorgan failure requiring mechanical vent. He remains at risk for ongoing, medications and setbacks. If he does survive current acute hospitalization, he will likely have ongoing risk for further decline in complications. . Code Status: Full Code Plan * Legal decision maker:Patient currently intubated and sedated and unable to participate in decision-making. Prior to intubation and sedation ED physician notes that patient did not have the capacity to make his own decisions. Patient previously listed a brother as a contact during past hospitalizations, however per later records/admissions he later indicated this brother . No other family contact has been listed. need to obtain [employer] report to locate next of kin; if no next of kin can be identified may need appointed / temporary legal decision-maker such as social work advantage. SSN# per prior ID card scanned in EMR: [id number]. Jackie informs patient may have a daughter though did not know her name or location. She is going to continue to look through patient's paperwork in his rented room to see if she can find more contact information. 05/03/17 [employer] pending. CM has d/w financial svcs, [employer] report pending, she will advise me later once any results obtained. If no family identified may d/w friend/landlord if she would be willing/able to serve as proxy as has known pt many years. 05/04/17 d/w legal dept, no return of family from [employer], may proceed w friend serving as proxy if she is willing/able * Goals: TBD, pending d/w possibly proxy (friend/landlord). Palliative will discuss conditions, goals once able to meet w friend Opal, if she wishes to serve as proxy. * CODE STATUS: Full code by default * SYMPTOMS: --Encephalopathy/AMS-now intubated and sedated. Long history of EtOH abuse, seizures and secondary injuries. Likely multifactorial: Hepatic, renal dysfunction, sepsis, respiratory failure. repeat EEG severe encephalopathy. No sedation since yesterday. still minimally responsive. MRI neg for acute process. --Dyspnea-admitted with pneumonia, worsening respiratory status now intubated , tolerating CPAP a few hrs at a time. Still encephalopathic which may limit ventilator weaning/ability to maintain airway. * Palliative care will continue to follow during hospital course as condition evolves, to assist patient/decision-maker with understanding of medical conditions, weighing benefits/burdens of treatment options, for clarification of goals of treatment. Additionally will assist with any symptoms of palliative concern Time Spent Total Floor Time (mins): 30 (chart review, PE, d/w nursing, attempts to reach friend for proxy) Attestation To help prompt me to consider important information that might be impacting today's encounter and assessment, information from prior notes written by myself or my colleagues may have been "brought forward" into today's note. My signature on this note, however, is an attestation that I personally performed the exam, history, and/or decision-making noted today, and, unless otherwise indicated, the interactions with patient, family, and staff as well as the review of records all occurred today. I also attest that the listed assessment and stated plan reflect my best clinical judgment today based on the combination of historical information, prior notes, and today's exam/ interactions. When time spent is documented, it refers only to time spent today by the signer, or if indicated, combined time spent today by collaborating physician/nurse practitioner. Liliam Shell May 04, 2017 14:44
--- NOTE | 2017-05-04 16:35 | RADRPT ---
EXAM DATE/TIME: 05/04/2017 16:12 [facility] COMPARISON: CT GUIDED ABD PARACENTESIS, April 27, 2017, 15:51. INDICATIONS : Abdominal distention. ORAL CONTRAST: Prescribed oral contrast ingested. RADIATION DOSE: 16.49 CTDIvol (mGy) MEDICAL HISTORY : Cerebrovascular disease. Cardiovascular disease Chronic obstructive pulmonary disease. SURGICAL HISTORY : None. ENCOUNTER: Initial ACUITY: 1 day PAIN SCALE: Non-responsive LOCATION: abdomen TECHNIQUE: Volumetric scanning of the abdomen and pelvis was performed. Using automated exposure control and ad justment of the mA and/or kV according to patient size, radiation dose was kept as low as reasonably achievable to obtain optimal diagnostic quality images. DICOM format image data is available electro nically for review and comparison. FINDINGS: The lung bases demonstrate moderate COPD changes with small bibasilar effusions. Imaging through the abdomen demonstrates fairly diffuse, moderately high density abdominal ascites. T his is similar in appearance to the previous study dated 04/27/17. The liver appears small with diffu se fatty infiltration. The spleen, pancreas, adrenal glands and kidneys are intact. There is no retroperitoneal adenopathy. No free air is seen. The abdominal aorta is normal in caliber . The visualized loops of small and large bowel demonstrate some fairly diffuse thickening of the jej unum which is likely secondary to the ascites. There is ascites within the pelvis. No iliac or inguinal adenopathy is seen. There degenerative changes throughout the spine. CONCLUSION: 1. COPD changes with minimal bilateral effusions. 2. Small cirrhotic appearing liver with diffuse fatty infiltration. 3. Diffuse high density ascites throughout the abdomen similar in appearance to previous of 04/27/17. 4. Mild diffuse small bowel thickening with no evidence of obstruction. Andrzej Loaiza MD on May 04, 2017 at 16:30 Board Certified Radiologist. This report was verified electronically.
[2017-05-04] MEDS: VANCOMYCIN 500 MG VIAL (FOR ORAL USE ONLY) PO SCH ×2 (17:14→23:24)
[2017-05-04] MEDS: metroNIDAZOLE 500 MG INJ 100 ML IV SCH ×2 (17:15→23:25)
[2017-05-04] MEDS: CEFEPIME INJ 2,000 MG in SODIUM CHLORIDE 0.9% INJ 100 ML IV SCH (17:15)
[2017-05-04 20:09] LABS: C. DIFF EPI 027 PRESUMPTIVE NEGATIVE (NEGATIVE)
[2017-05-04] MEDS: MICAFUNGIN INJ 150 MG in SODIUM CHLORIDE 0.9% INJ 100 ML IV SCH (23:19)
[2017-05-05] VITALS (17 sets, daily range): BP systolic 123–151; BP diastolic 69–86; PULSE 79–89; RESP 14–17; TEMP 97.4–98; O2SAT 95–100
[2017-05-05] MEDS: CEFEPIME INJ 2,000 MG in SODIUM CHLORIDE 0.9% INJ 100 ML IV SCH ×2 (03:54→16:15)
[2017-05-05] MEDS: FAMOTIDINE 20 MG/2 ML VIAL IV PUSH SCH ×2 (03:54→14:36)
[2017-05-05] MEDS: INSULIN NovoLIN REGULAR SUPPLEMENTAL SCALE SQ SCH ×5 (04:00→22:35)
[2017-05-05 04:47] LABS: AUTOMATED NEUTROPHIL # 31.7 TH/MM3 (1.8-7.7); BASOPHIL # 0.2 TH/MM3 (0-0.2); BASOPHIL % 0.6 % (0.0-2.0); EOSINOPHIL # 0.1 TH/MM3 (0-0.4); EOSINOPHIL % 0.1 % (0.0-4.0); HEMATOCRIT 28.5 % (39.0-51.0); LYMPH % 3.4 % (9.0-44.0); LYMPHOCYTE # 1.2 TH/MM3 (1.0-4.8); MEAN CELL VOLUME 93.1 FL (80.0-100.0); MEAN CORPUSCULAR HEMOGLOBIN 28.7 PG (27.0-34.0); MEAN CORPUSCULAR HGB CONC 30.8 % (32.0-36.0); MONO % 8.1 % (0.0-8.0); NEUT % 87.8 % (16.0-70.0); PLATELET COUNT 61 TH/MM3 (150-450); RED BLOOD COUNT 3.06 MIL/MM3 (4.50-5.90); RED CELL DISTRIBUTION WIDTH 14.5 % (11.6-17.2); WHITE BLOOD COUNT 36.1 TH/MM3 (4.0-11.0)
[2017-05-05 04:54] LABS: HEMO FLAGS AUTO DIFF
[2017-05-05 05:17] LABS: BICARBONATE 28.6 MEQ/L (21.0-32.0); MAGNESIUM 1.5 MG/DL (1.5-2.5)
[2017-05-05 05:22] LABS: CALCIUM-PROTEIN CORRECTED 7.4 MG/DL (8.5-10.1); POTASSIUM 2.2 MEQ/L (3.5-5.1); TOTAL BILIRUBIN ADULT 6.1 MG/DL (0.2-1.0)
[2017-05-05] MEDS: FREE WATER G-TUBE SCH ×4 (06:00→23:54)
[2017-05-05] MEDS: ALBUMIN 25% INJ 50 ML IV SCH ×2 (06:11→18:05)
[2017-05-05] MEDS: VANCOMYCIN 500 MG VIAL (FOR ORAL USE ONLY) PO SCH ×4 (06:14→22:34)
[2017-05-05] MEDS: OCTREOTIDE INJ 50 MCG/ML AMP IV PUSH SCH ×3 (06:14→22:00)
[2017-05-05 06:38] LABS: BANDS 3 % (0-6); METAMYELOCYTES 3 % (0-1); NEUTROPHIL # MANUAL DIFF 33.2 TH/MM3 (1.8-7.7); PLATELET ESTIMATE SMEAR LOW (NORMAL); POLYS (SEG NEUTROPHILS) 86 % (16-70); SCAN/DIFF FINAL DIFF MANUAL; WBC DIFF SAMPLE 100
[2017-05-05 06:39] LABS: TOXIC VACUOLATION PRESENT (NONE SEEN)
[2017-05-05 06:40] LABS: PLATELET MORPHOLOGY ENLARGED (NORMAL); POLYCHROMASIA 2.4 % (0.0-1.9)
--- NOTE | 2017-05-05 08:19 | HHI.CCPN ---
Subjective Remarks/Hospital Course Patient is a 61-year-old male with past medical history of EtOH abuse, chronic obstructive pulmonary disease, seizure disorder, cerebrovascular accident, who presented to [facility] emergency department earlier this morning via EMS, under supposedly a Dwyer acted. The patient told the academic vice president of the [facility] where he is staying that he wants to commit suicide. The police were called and the patient was brought in to the hospital. On arrival to the emergency department he was found to have leukocytosis with a WBC of 21.6 and was in renal failure with creatinine of 2.51. The patient also had mild lactic acidemia with elevated lactic acid level 2.4 and elevated AST: 121 with total bilirubin 2.9. He had an ABG done this morning on 4 liters oxygen was which showed a pH of 7.34, CO2 28 and pAO2 135, bicarb 15, saturation 96%. Chest x-ray In the ER showed mild interstitial past is in the upper left lung. He also had CT abdomen and pelvis done which showed severe ascites along with steatosis of the liver and right inguinal hernia. [facility]. Critical care medicine was consulted for critical care management. When seen in ICU the patient was lethargic, unresponsive. He was subsequently intubated and placed on mechanical ventilation for airway protection. In the ICU the patient was hypotensive with systolic blood pressure in the 90s, A right IJ emergent central line was placed. 04/28 Patient is intubated off sedation started on Levophed yesterday 12 mics. s /p CT guided paracentesis with removal 4L. 04/29 Patient remains intubated and sedated with Fentanyl drip. Levophed down 7 mics, vasopressin added yesterday. Afebrile. On Bicarb drip. 04/30 Patient remains sedated with Fentanyl and intubated. Required increase FIO2/PEEP overnight given additional Bumex 2mg IV x1. CXR yesterday showed diffuse b/l pulm infiltrates. Levophed down to 5 mics, off Vasopressin. 05/01 Patient remains intubated off sedation Levophed down 3 mics. s/p paracentesis at bedside yesterday with removal 4L. Afebrile. Renal function worse today with Cr: 2.40 from 2.09. 05/02 No events overnight. Sedated with fentanyl and intubated, On Levophed 2mics. Tolerated CPAP for several hrs.. Cr: 2.28 from 2.4 05/03 Patient remains intubated, on no sedation unresponsive. MRI brain yesterday showed no evidence of hemorrhage/infarction. 05/04 No events overnight. Remains obtunded/unresponsive. Tmax 100.0 05/05: No acute events overnight, remains critically ill. WBC count 36.1. Ct abd shows ascites, C diff negative x2. Opens eyes, not following Objective Vital Signs Date Time Temp Pulse Resp B/P (MAP) Pulse Ox O2 Delivery O2 Flow Rate FiO2 05/05/17 07:58 100 40 05/05/17 06:00 85 05/05/17 04:00 97.8 127/74 (91) 05/04/17 16:32 18 Intake and Output 05/05/17 05/05/17 05/05/17 07:59 15:59 23:59 Intake Total 757 ml Output Total 550 ml Balance 207 ml Result Diagram: 05/05/17 0350 05/05/17 0350 Imaging Last Impressions Chest X-Ray 05/03/17 0000 Signed Impressions: Service Date/Time: Wednesday, May 03, 2017 07:53 - CONCLUSION: Improving bilateral pulmonary infiltrates. Cliff Mcanir Jr., MD Brain MRI 05/02/17 0000 Signed Impressions: Service Date/Time: Tuesday, May 02, 2017 13:22 - CONCLUSION: 1. No evidence of acute infarction or acute hemorrhage. 2. Diffuse confluent disseminated white matter signal abnormalities in the supratentorial brain is nonspecific in appearance and could be due to diffuse white matter disease or ischemic process. Cliff Lugo MD Abdomen Ultrasound 04/30/17 0000 Signed Impressions: Service Date/Time: Sunday, April 30, 2017 11:40 - CONCLUSION: Moderate ascites is still present. Jesus Duncan MD Paracentesis 04/27/17 [id number] Signed Impressions: Service Date/Time: Thursday, April 27, 2017 15:51 - CONCLUSION: 1. One complicated CT-guided paracentesis. 2. Profound hepatic steatosis. Wallace Cordoba MD Head CT 04/27/17 0000 Signed Impressions: Service Date/Time: Thursday, April 27, 2017 15:44 - CONCLUSION: Diffuse atrophy is present. Areas of encephalomalacia involving the right temporal tip and the left orbitofrontal cortices. No evidence of acute hemorrhage or edema Jesus Duncan MD Abdomen/Pelvis CT 04/26/17 1724 Signed Impressions: Service Date/Time: Wednesday, April 26, 2017 21:23 - CONCLUSION: 1. Severe abdomino-pelvic ascites. 2. Steatosis of the liver. 3. Right inguinal hernia. Cliff Lugo MD Objective Remarks GENERAL: Patient is 61 yo critically ill intubated SKIN: Warm and dry. HEAD: Normocephalic. EYES: No scleral icterus. No injection or drainage. NECK: Supple, trachea midline. No JVD or lymphadenopathy. Orally intubated CARDIOVASCULAR: Regular rate and rhythm without murmurs, gallops, or rubs. RESPIRATORY: Breath sounds equal bilaterally. No accessory muscle use. GASTROINTESTINAL: non-tender, distended. Positive fluid thrill MUSCULOSKELETAL: No cyanosis, or edema. Neuro: Intubated, off sedation opens eyes. Do not follow commands A/P Assessment and Plan 1. Acute respiratory failure 2. Encephalopathy. 3. Leukocytosis 4. Ascites 5. Acute kidney injury...improving 6. Urinary tract infection. 7. Hypokalemia. 8. Lactic acidemia.. resolved 9. Elevated AST. 10. ETOH abuse. 11. History of cerebrovascular accident and seizure disorder. 12. History of chronic obstructive pulmonary disease. 13. Electrolytes abnormalities (hypokalemia, Hypo Mag) Plan Neuro: Off sedation. Monitor neuro status. Neuro is following- Dr. Decker MRI brain 05/02: No evidence of infarction or hemorrhage Repeat EEG 05/02: Severe encephalopathy 04/27: EEG Mild- mod slowing. No epileptiform features. 04/27: CT brain: No acute findings On Lactulose 30ml QID, Rifaximin 550mg BID, Ammonia level: 29 On Thiamine, MVI, folic acid Pulm: On PRVC RR 14, TV 400, PEEP5, FIO2 40%. Continue with vent support and maintain sats above 92%. Bronchodilators, ICU vent bundle. SBT trials as cheryl, but mental status will not permit extubation CXR improvements in b/l pulm infiltrates CV: Off Levophed Hydrocortisone- HC 25mg IV Q12 : Monitor renal function Is and Os, electrolytes replacement per protocol. Renal function is improving with Cr: 1.38 from 1.58 UOP: 1150 ml in 24 hrs Renal- Dr. Lane. Aggressive K and Mag replacement Free water 300ml Q6. Monitor sodium level. CT scan of the abdomen and pelvis showed no evidence of hydronephrosis, masses or stones. GI: On tube feeds- Nepro @40 ml/hr, on Pepcid 10 mg IV q. 12 for GI prophylaxis Monitor LFT's, s/p CT guided paracentesis with removal 4 on 04/27 and repeat Paracentesis at bedside on 04/30 with 4L removal. Continue with albumin.. Follow up on fluid cx- NGTD. ID: Leukocytosis Continue with abx per ID ( Cefepime, micafungin, azithro, also oral vanco, IV flagyl) BC 05/03: NGTD, 05/02 sputum: normal resp james Urine culture: E.coli. C-diff 05/01, 05/[address] abd/pelvis 04/26: Ascites , steatosis of live. Heme: Monitor CBC GI prophylaxis with Pepcid 10 mg IV q. 12 and DVT prophylaxis with SCDs. Endo: SSI for glucemic control Lines: Right IJ central line placed 04/27 Patient is critically ill with sepsis, resp failure , renal failure, encephalopathy and UTI. No signs of significant clinical improvement Palliative care is following Level 3 Lynda Lou MD May 05, 2017 08:19
[2017-05-05] MEDS ORDERED: POTASSIUM CHLOR 20 MEQ PREMIX 100 ML IV SCH (09:00)
[2017-05-05] MEDS: HYDROCORTISONE SOD SUCCINATE 100 MG VIAL IV PUSH SCH ×2 (09:04→22:35)
[2017-05-05] MEDS: AZITHROMYCIN 250 MG TAB PO SCH (09:04)
[2017-05-05] MEDS: THIAMINE HCL 100 MG TAB PO SCH (09:04)
[2017-05-05] MEDS: MULTIVITAMIN TAB PO SCH (09:05)
[2017-05-05] MEDS: FOLIC ACID 1 MG TAB PO SCH (09:05)
[2017-05-05] MEDS: DOCUSATE SODIUM 50 MG/SENNA 8.6 MG TAB PO SCH ×2 (09:05→21:00)
[2017-05-05] MEDS: SODIUM CHLORIDE 0.9% FLUSH 10 ML FLUSH IV FLUSH SCH ×2 (09:05→21:00)
[2017-05-05] MEDS: CALCIUM CARBONATE 1.25 GM (CA 500 MG) TAB PO SCH ×2 (09:05→22:35)
[2017-05-05] MEDS: metroNIDAZOLE 500 MG INJ 100 ML IV SCH ×2 (09:28→16:16)
[2017-05-05] MEDS ORDERED: MAGNESIUM SULFATE 1 GM PREMIX 100 ML IV ONE (09:30)
--- NOTE | 2017-05-05 10:16 | HHI.NPPN ---
Subjective Renal Failure: Acute Interval History Remains unresponsive, on CPAP trial. Hypokalemic, although renal function is better. (Jayla Robins) Review of Systems General General Remarks unable to obtain (Jayla Robins) Objective Data Data Vital Signs Date Time Temp Pulse Resp B/P (MAP) Pulse Ox O2 Delivery O2 Flow Rate FiO2 05/05/17 07:58 100 40 05/05/17 07:58 40 05/05/17 06:00 85 05/05/17 04:00 40 05/05/17 04:00 97.8 84 127/74 (91) 100 05/05/17 04:00 84 05/05/17 03:49 100 40 05/05/17 02:00 86 05/05/17 00:00 98.0 83 123/69 (87) 100 05/05/17 00:00 83 05/05/17 00:00 40 05/04/17 23:28 100 40 05/04/17 22:00 87 05/04/17 20:05 100 40 05/04/17 20:00 40 05/04/17 20:00 85 05/04/17 20:00 98.5 85 125/65 (85) 100 05/04/17 18:00 87 05/04/17 16:52 100 05/04/17 16:32 97.7 90 18 161/83 (109) 100 05/04/17 16:27 100 100 05/04/17 16:00 86 05/04/17 15:08 100 40 05/04/17 14:00 87 05/04/17 12:00 90 05/04/17 12:00 40 (Jayla Robins) -: 05/05/17 0350 05/05/17 0350 Imaging Last 72 hours Impressions Abdomen/Pelvis CT 05/04/17 0000 Signed Impressions: Service Date/Time: Thursday, May 04, 2017 16:12 - CONCLUSION: 1. COPD changes with minimal bilateral effusions. 2. Small cirrhotic appearing liver with diffuse fatty infiltration. 3. Diffuse high density ascites throughout the abdomen similar in appearance to previous of 04/27/17. 4. Mild diffuse small bowel thickening with no evidence of obstruction. Andrzej Loaiza MD Chest X-Ray 05/03/17 0000 Signed Impressions: Service Date/Time: Wednesday, May 03, 2017 07:53 - CONCLUSION: Improving bilateral pulmonary infiltrates. Cliff Mcnair Jr., MD Tubes & Lines: Castellano Tubes & Lines Comment TLC right IJ (Jayla Robins) Physical Exam General Appearance: No Acute Distress, Comfortable, Malnourished Appearance Remarks unresponsive on vent, moves to noxious stimuli (Jayla Robins [employer]) Throat Throat Exam: Oral Mucosa [place] & Moist (Jayla Robins [employer]) Neck Neck Exam: Neck Supple (Jayla Robins [employer]) Pulmonary Resp Exam: Breath Sounds Equal, Crackles Resp Remarks vented lung sounds (Jayla Robins [employer]) Cardiology CV Exam: Regular (Jayla Robins) Gastrointestinal/Abdomen GI Exam: Soft, Non-Tender, Bowel Sounds Present, Positive Bowel Movement GI Remarks LLQ leaking at site of paracentesis ascites (Jayla RobinsP) Genitourinary Exam: Clear Urine (Jayla Robins [employer]) Musculoskeletal MS Exam: Joints Intact, Normal Tone, Unable to Ambulate (Jayla Robins [employer]) Integumentary Skin Exam: Warm, Dry (Jayla RobinsP) Extremeties Extremities Exam: Pedal Pulses Palpable, Moderate Edema Extremeties Remarks moderate upper extremity edema (Jayla Robins [employer]) Neurologic Neuro Exam: Moving All Extremities, Obtunded, Unresponsive (Jayla Robins [employer]) VTE Prophylaxis Device: SCDs (Jayla Robins) Assessment/Plan Discussed Condition Comment Nurse Assessment Summary: Hypertension Electrolyte Assessment: Hypernatremia, Hypokalemia, Hypomagnesemia Problem List: (1) Acute kidney injury ICD Codes: N17.9 - Acute kidney failure, unspecified Status: Acute Plan: BOBBI could be due to sepsis, and ATN. Renal function improving, he remains non oliguric Off IVF Continue Free water through OG tube Obtain daily labs, replace electrolytes as needed Prognosis is poor at this time Palliative care and/or hospice. Attempting to locate POA. (2) Electrolyte abnormality ICD Codes: E87.8 - Other disorders of electrolyte and fluid balance, not elsewhere classified Plan: Hypokalemia, replacement in process Hypophosphatemia, corrected Hypomagnesemia, corrected Replacement protocol is ongoing. (3) Hypernatremia ICD Codes: E87.0 - Hyperosmolality and hypernatremia Plan: Off D5W Free water through OG tube continues (4) Severe sepsis ICD Codes: A41.9 - Sepsis, unspecified organism; R65.20 - Severe sepsis without septic shock Status: Acute Plan: Significant leukocytosis, leukemoid reaction Blood cultures negative, ID following Urine culture positive; on Zosyn, micafungin and Zithromax; cefepime added. Monitor clinically, continue supportive care, vent management per protocol. C diff negative but clinically appears to be active. On PO vancomycin. Contact precautions. (5) Alcohol abuse ICD Codes: F10.10 - Alcohol abuse Status: Chronic Plan: Withdrawal protocol as ordered (6) Metabolic acidosis ICD Codes: E87.2 - Acidosis Plan: Continue to monitor. Lactulose causes bicarbonate loss though GI. Renal failure was also contributing. Plan We will sign off at this time. Please call us if needed. (Jayla Robins) Plan patient was seen and examined. Agree with above assessment and plan. We will sign off. (Robert Lane MD) Jayla Robins May 05, 2017 10:[address] MD May 05, 2017 10:57
[2017-05-05] MEDS ORDERED: POTASSIUM CHLORIDE INJ 40 MEQ in SODIUM CHLORID 0.9% 500 ML INJ 500 ML IV-CENTRAL ONE (10:30)
--- NOTE | 2017-05-05 11:03 | HHI.IDPN ---
Subjective Subjective Remarks CT with new bowel thickening WBC up to 37 K no fever high volume mucosy stools repeat C.diff negative Antibiotics zosyn azithro Allergies: Coded Allergies: codeine (Unverified Allergy, Severe, N/V, 04/26/17) propoxyphene (Unverified Allergy, Severe, HIVES, 04/26/17) Objective . Vital Signs Date Time Temp Pulse Resp B/P (MAP) Pulse Ox O2 Delivery O2 Flow Rate FiO2 05/05/17 07:58 100 40 05/05/17 07:58 40 05/05/17 06:00 85 05/05/17 04:00 40 05/05/17 04:00 97.8 84 127/74 (91) 100 05/05/17 04:00 84 05/05/17 03:49 100 40 05/05/17 02:00 86 05/05/17 00:00 98.0 83 123/69 (87) 100 05/05/17 00:00 83 05/05/17 00:00 40 05/04/17 23:28 100 40 05/04/17 22:00 87 05/04/17 20:05 100 40 05/04/17 20:00 40 05/04/17 20:00 85 05/04/17 20:00 98.5 85 125/65 (85) 100 05/04/17 18:00 87 05/04/17 16:52 100 05/04/17 16:32 97.7 90 18 161/83 (109) 100 05/04/17 16:27 100 100 05/04/17 16:00 86 05/04/17 15:08 100 40 05/04/17 14:00 87 05/04/17 12:00 90 05/04/17 12:00 40 . Laboratory Tests Test 05/04/17 05:00 05/05/17 03:50 White Blood Count 37.9 TH/MM3 36.1 TH/MM3 Red Blood Count 3.42 MIL/MM3 3.06 MIL/MM3 Hemoglobin 9.8 GM/DL 8.8 GM/DL Hematocrit 30.8 % 28.5 % Mean Corpuscular Volume 90.2 FL 93.1 FL Mean Corpuscular Hemoglobin 28.6 PG 28.7 PG Mean Corpuscular Hemoglobin Concent 31.7 % 30.8 % Red Cell Distribution Width 14.0 % 14.5 % Platelet Count 54 TH/MM3 61 TH/MM3 Mean Platelet Volume 11.2 FL 11.7 FL Neutrophils (%) (Auto) 89.8 % 87.8 % Lymphocytes (%) (Auto) 3.1 % 3.4 % Monocytes (%) (Auto) 6.8 % 8.1 % Eosinophils (%) (Auto) 0.0 % 0.1 % Basophils (%) (Auto) 0.3 % 0.6 % Neutrophils # (Auto) 34.1 TH/MM3 31.7 TH/MM3 Lymphocytes # (Auto) 1.2 TH/MM3 1.2 TH/MM3 Monocytes # (Auto) 2.6 TH/MM3 2.9 TH/MM3 Eosinophils # (Auto) 0.0 TH/MM3 0.1 TH/MM3 Basophils # (Auto) 0.1 TH/MM3 0.2 TH/MM3 CBC Comment AUTO DIFF AUTO DIFF Differential Total Cells Counted 100 100 Neutrophils % (Manual) 93 % 86 % Band Neutrophils % 1 % 3 % Lymphocytes % 1 % 2 % Monocytes % 5 % 6 % Neutrophils # (Manual) 35.6 TH/MM3 33.2 TH/MM3 Differential Comment FINAL DIFF MANUAL FINAL DIFF MANUAL Platelet Estimate LOW LOW Platelet Morphology Comment ENLARGED ENLARGED Polychromasia % 2.4 % Metamyelocytes 3 % Toxic Vacuolation PRESENT Laboratory Tests Test 05/03/17 18:00 05/04/17 01:10 05/04/17 05:00 05/04/17 12:50 Potassium Level 2.3 MEQ/L 3.1 MEQ/L 2.6 MEQ/L Phosphorus Level 1.4 MG/DL 3.2 MG/DL Magnesium Level 1.0 MG/DL 1.8 MG/DL Blood Urea Nitrogen 45 MG/DL Creatinine 1.58 MG/DL Random Glucose 177 MG/DL Total Protein 6.1 GM/DL Albumin 2.1 GM/DL Calcium Level 7.3 MG/DL Alkaline Phosphatase 260 U/L Aspartate Amino Transf (AST/SGOT) 135 U/L Alanine Aminotransferase (ALT/SGPT) 67 U/L Total Bilirubin 7.0 MG/DL Sodium Level 152 MEQ/L Chloride Level 114 MEQ/L Carbon Dioxide Level 29.2 MEQ/L Anion Gap 9 MEQ/L Estimat Glomerular Filtration Rate 45 ML/MIN Protein Corrected Calcium 7.8 MG/DL Test 05/05/17 03:50 Blood Urea Nitrogen 45 MG/DL Creatinine 1.38 MG/DL Random Glucose 145 MG/DL Total Protein 6.2 GM/DL Albumin 2.0 GM/DL Calcium Level 6.9 MG/DL Phosphorus Level 2.8 MG/DL Magnesium Level 1.5 MG/DL Alkaline Phosphatase 239 U/L Aspartate Amino Transf (AST/SGOT) 137 U/L Alanine Aminotransferase (ALT/SGPT) 70 U/L Total Bilirubin 6.1 MG/DL Sodium Level 146 MEQ/L Potassium Level 2.2 MEQ/L Chloride Level 109 MEQ/L Carbon Dioxide Level 28.6 MEQ/L Anion Gap 8 MEQ/L Estimat Glomerular Filtration Rate 52 ML/MIN Protein Corrected Calcium 7.4 MG/DL Microbiology Date/Time Source Procedure Growth Status 05/03/17 10:10 Blood Peripheral Aerobic Blood Culture - Preliminary NO GROWTH IN 1 DAY Resulted 05/03/17 10:10 Blood Peripheral Anaerobic Blood Culture - Preliminary NO GROWTH IN 1 DAY Resulted 05/03/17 08:35 Blood Peripheral Aerobic Blood Culture - Preliminary NO GROWTH IN 1 DAY Resulted 05/03/17 08:35 Blood Peripheral Anaerobic Blood Culture - Preliminary NO GROWTH IN 1 DAY Resulted Imaging Last Impressions Abdomen/Pelvis CT 05/04/17 0000 Signed Impressions: Service Date/Time: Thursday, May 04, 2017 16:12 - CONCLUSION: 1. COPD changes with minimal bilateral effusions. 2. Small cirrhotic appearing liver with diffuse fatty infiltration. 3. Diffuse high density ascites throughout the abdomen similar in appearance to previous of 04/27/17. 4. Mild diffuse small bowel thickening with no evidence of obstruction. Andrzej Loaiza MD Chest X-Ray 05/03/17 0000 Signed Impressions: Service Date/Time: Wednesday, May 03, 2017 07:53 - CONCLUSION: Improving bilateral pulmonary infiltrates. Cliff Mcnair Jr., MD Brain MRI 05/02/17 0000 Signed Impressions: Service Date/Time: Tuesday, May 02, 2017 13:22 - CONCLUSION: 1. No evidence of acute infarction or acute hemorrhage. 2. Diffuse confluent disseminated white matter signal abnormalities in the supratentorial brain is nonspecific in appearance and could be due to diffuse white matter disease or ischemic process. Cliff Lugo MD Abdomen Ultrasound 04/30/17 0000 Signed Impressions: Service Date/Time: Sunday, April 30, 2017 11:40 - CONCLUSION: Moderate ascites is still present. Jesus Duncan MD Paracentesis 04/27/17 1452 Signed Impressions: Service Date/Time: Thursday, April 27, 2017 15:51 - CONCLUSION: 1. One complicated CT-guided paracentesis. 2. Profound hepatic steatosis. Wallace Cordoba MD Head CT 04/27/17 0000 Signed Impressions: Service Date/Time: Thursday, April 27, 2017 15:44 - CONCLUSION: Diffuse atrophy is present. Areas of encephalomalacia involving the right temporal tip and the left orbitofrontal cortices. No evidence of acute hemorrhage or edema Jesus Duncan MD Physical Exam CONSTITUTIONAL/GENERAL: This is an adequately nourished patient, in no apparent distress. TUBES/LINES/DRAINS: SKIN: No jaundice, rashes, or lesions. Skin temperature appropriate. Not diaphoretic. EYES: Pupils equal and round and reactive. Extraocular motions intact. No scleral icterus. No injection or drainage. Fundi not examined. CARDIOVASCULAR: Regular rate and rhythm without murmurs, gallops, or rubs. No JVD. Peripheral pulses symmetric. RESPIRATORY/CHEST: Symmetric, unlabored respirations. Clear to auscultation. Breath sounds equal bilaterally. GASTROINTESTINAL: Abdomen soft, grimacing to palpation, markedly distended. No hepato-splenomegaly, or palpable masses. No guarding. Bowel sounds present. GENITOURINARY: Without palpable bladder distension. Castellano catheter in place with small amount of tea coloured urine MUSCULOSKELETAL: Extremities without clubbing, cyanosis, or edema. NEUROLOGICAL: letahrgic, arousable responsive PSYCHIATRIC: unable to assess Assessment & Plan Remarks Sepsis, shock critically ill, stable ARF: resolving UTI, E.coli - ziegler S Ascitis, r/o SBP ? clx negative SBP - improving WBC counts Acute VDRF, PNA vs ARDS (more likely) - improving infiltrates SBP clx negative so far, but cell count cw SBP Leukocytosis , leukemoid reaction Diarrhea, c.diff negative, bu clinically very suspicious for C.diff - now with documented bowel thickening on CT - cont cefepime - dc micafungin - dc azithro for now cont oral vanco, IV Eda Anton MD May 05, 2017 11:03
--- NOTE | 2017-05-05 13:11 | HHI.HCPN ---
Reason for visit a. To assist with evaluation and management of symptoms including: encephalopathy, dyspnea b. To assist medical decision maker(s) with: better understanding of current medical conditions; weighing benefits/burdens of medical treatment options; making medical treatment decisions. Subjective/Interval History Late entry- seen earlier today 1100 Palliative notified by nursing this am that friend/landlord Opal present at beside. Pt seen to follow up on identification of possible decision maker/ conditions/goals. Stable, continues to tolerate CPAP for a few hrs. though concerns regarding airway protection limit potential for medical extubation at this time. Continues to have loose stool, repeat sample for C. difficile negative for antigen. ID continues to follow and treat as if active C. difficile infection.CT abdomen pelvis yesterday = Mild diffuse small bowel thickening. On cefepime, micafungin, azithromycin, oral vanco, IV flagyl. Patient on no sedation. No improvement in neurological status. Dual visit, seen in room with Dr. Melodie Bruno. Patient minimally responsive to exam. Does not follow any commands. Does not open eyes for me. Friend Opal indicates that when she greeted him today and said his name, (they call him "Melissa") that he opened his eyes and appeared to look at and recognize her. Met with Opal at length, upon review of search/ hierarchy for decision-maker, she agrees to serve as healthcare proxy. . Family/friend interactions Met with Opal at length at bedside,discussion included: * Review of medical/social history; some of which was discussed on initial conversation with pOal. She endorses the patient is a though [facility] and he apparently did not have his local card or whatever was required for him to seek services there. She endorses that he was stubborn, she has known him for 18 years. She is assisted him with his housing and some basic care needs. He generally does not like going to the doctor or seeking medical attention. * Patient cognitive and functional status in the months to weeks prior to this admission-he was living in one of her rented rooms generally stayed in his room. * Proxy understanding of current medical conditions, prognosis, treatment options , likely trajectory. This included discussions regarding possibility of patient needing tracheostomy, feeding tube, long-term care placement etc. * Overall condition, prognosis * CODE STATUS[] patient is full code by default, she will think about CODE STATUS and advise if any changes or DNR desired. * Palliative care contact information provided Met with Opal at length at bedside. She has known the patient for many years. She tells me they refer to him as "Melissa ". She is just learning about the extent of his medical conditions. She appears to have a very simple understanding of things. No decisions are made today regarding CODE STATUS or any other interventions and treatments. She wishes to take more time to think about conditions and options before any further decisions are made. I have provided her with palliative contact information, will continue to follow-up with her in the coming days. . Advance Directives Living Will: Never completed Health Care Surrogate: Never completed Durable Power of Combination Machine Tender: Never completed Objective Vital Signs Date Time Temp Pulse Resp B/P (MAP) Pulse Ox O2 Delivery O2 Flow Rate FiO2 05/05/17 11:19 100 40 05/05/17 08:00 40 05/05/17 07:58 100 40 05/05/17 07:58 40 05/05/17 06:00 85 05/05/17 04:00 40 05/05/17 04:00 97.8 84 127/74 (91) 100 05/05/17 04:00 84 05/05/17 03:49 100 40 05/05/17 02:00 86 05/05/17 00:00 98.0 83 123/69 (87) 100 05/05/17 00:00 83 05/05/17 00:00 40 05/04/17 23:28 100 40 05/04/17 22:00 87 05/04/17 20:05 100 40 05/04/17 20:00 40 05/04/17 20:00 85 05/04/17 20:00 98.5 85 125/65 (85) 100 05/04/17 18:00 87 05/04/17 16:52 100 05/04/17 16:32 97.7 90 18 161/83 (109) 100 05/04/17 16:27 100 100 05/04/17 16:00 86 05/04/17 15:08 100 40 05/04/17 14:00 87 Intake & Output 05/05/17 05/05/17 07:00 19:00 Intake Total 757 ml Output Total 550 ml Balance 207 ml Tube Feeding 457 ml Other 300 ml Output Urine Total 550 ml # Bowel Movements 5 Physical Exam CONSTITUTIONAL/GENERAL: Chronically ill-appearing patient, minimally responsive on mechanical vent TUBES/LINES/DRAINS: Right IJ central line, ET tube, OG tube, external catheter, wound drainage bag LLQ SKIN: Skin temperature appropriate warm. wound drainage bag LLQ- reported paracentesis site. Chronic scaling, thickening noted to skin bilateral lower extremities especially to feet. HEAD: Atraumatic. Normocephalic. EYES: Pupils 3 mm, brisk reaction to light. No injection or drainage. Fundi not examined. CARDIOVASCULAR: Regular rate and rhythm without murmur. No JVD. faint pedal pulses. Radial pulses palpable.+ Edema bilateral upper extremities RESPIRATORY/CHEST: Symmetric unlabored respirations via ETT to mech vent on CPAP , clear, equal bilaterally GASTROINTESTINAL: Abdomen soft, nondistended. no readily palpable masses. OG w TF infusing. BS normoactive GENITOURINARY: Without palpable bladder distension. dark yellow urine present in catheter NEUROLOGICAL: no sedation, mechanical vent. Minimally responsive to exam. Withdraws bilateral lower extremities slightly to pain stimuli does not withdrawal upper extremities. PSYCHIATRIC: Limited assessment due to clinical condition. Diagnostic Tests Laboratory Laboratory Tests Test 05/03/17 06:20 05/03/17 18:00 05/04/17 01:10 05/04/17 05:00 White Blood Count 32.4 TH/MM3 (4.0-11.0) 37.9 TH/MM3 (4.0-11.0) Red Blood Count 3.35 MIL/MM3 (4.50-5.90) 3.42 MIL/MM3 (4.50-5.90) Hemoglobin 9.8 GM/DL (13.0-17.0) 9.8 GM/DL (13.0-17.0) Hematocrit 30.2 % (39.0-51.0) 30.8 % (39.0-51.0) Mean Corpuscular Volume 90.2 FL (80.0-100.0) 90.2 FL (80.0-100.0) Mean Corpuscular Hemoglobin 29.2 PG (27.0-34.0) 28.6 PG (27.0-34.0) Mean Corpuscular Hemoglobin Concent 32.4 % (32.0-36.0) 31.7 % (32.0-36.0) Red Cell Distribution Width 14.1 % (11.6-17.2) 14.0 % (11.6-17.2) Platelet Count 54 TH/MM3 (150-450) 54 TH/MM3 (150-450) Mean Platelet Volume 12.0 FL (7.0-11.0) 11.2 FL (7.0-11.0) Neutrophils (%) (Auto) 90.0 % (16.0-70.0) 89.8 % (16.0-70.0) Lymphocytes (%) (Auto) 4.3 % (9.0-44.0) 3.1 % (9.0-44.0) Monocytes (%) (Auto) 5.5 % (0.0-8.0) 6.8 % (0.0-8.0) Eosinophils (%) (Auto) 0.0 % (0.0-4.0) 0.0 % (0.0-4.0) Basophils (%) (Auto) 0.2 % (0.0-2.0) 0.3 % (0.0-2.0) Neutrophils # (Auto) 29.2 TH/MM3 (1.8-7.7) 34.1 TH/MM3 (1.8-7.7) Lymphocytes # (Auto) 1.4 TH/MM3 (1.0-4.8) 1.2 TH/MM3 (1.0-4.8) Monocytes # (Auto) 1.8 TH/MM3 (0-0.9) 2.6 TH/MM3 (0-0.9) Eosinophils # (Auto) 0.0 TH/MM3 (0-0.4) 0.0 TH/MM3 (0-0.4) Basophils # (Auto) 0.1 TH/MM3 (0-0.2) 0.1 TH/MM3 (0-0.2) CBC Comment AUTO DIFF AUTO DIFF Differential Total Cells Counted 100 100 Neutrophils % (Manual) 91 % (16-70) 93 % (16-70) Lymphocytes % 3 % (9-44) 1 % (9-44) Monocytes % 5 % (0-8) 5 % (0-8) Neutrophils # (Manual) 29.8 TH/MM3 (1.8-7.7) 35.6 TH/MM3 (1.8-7.7) Metamyelocytes 1 % (0-1) Differential Comment FINAL DIFF MANUAL FINAL DIFF MANUAL Platelet Estimate LOW (NORMAL) LOW (NORMAL) Platelet Morphology Comment ENLARGED (NORMAL) ENLARGED (NORMAL) Blood Urea Nitrogen 46 MG/DL (7-18) 45 MG/DL (7-18) Creatinine 1.94 MG/DL (0.60-1.30) 1.58 MG/DL (0.60-1.30) Random Glucose 155 MG/DL (74-106) 177 MG/DL (74-106) Total Protein 6.6 GM/DL (6.4-8.2) 6.1 GM/DL (6.4-8.2) Albumin 2.2 GM/DL (3.4-5.0) 2.1 GM/DL (3.4-5.0) Calcium Level 7.6 MG/DL (8.5-10.1) 7.3 MG/DL (8.5-10.1) Phosphorus Level 2.0 MG/DL (2.5-4.9) 1.4 MG/DL (2.5-4.9) Magnesium Level 1.3 MG/DL (1.5-2.5) 1.0 MG/DL (1.5-2.5) Alkaline Phosphatase 271 U/L (45-117) 260 U/L (45-117) Aspartate Amino Transf (AST/SGOT) 184 U/L (15-37) 135 U/L (15-37) Alanine Aminotransferase (ALT/SGPT) 66 U/L (12-78) 67 U/L (12-78) Total Bilirubin 6.3 MG/DL (0.2-1.0) 7.0 MG/DL (0.2-1.0) Sodium Level 147 MEQ/L (136-145) 152 MEQ/L (136-145) Potassium Level 2.3 MEQ/L (3.5-5.1) 2.3 MEQ/L (3.5-5.1) 3.1 MEQ/L (3.5-5.1) 2.6 MEQ/L (3.5-5.1) Chloride Level 111 MEQ/L (98-107) 114 MEQ/L (98-107) Carbon Dioxide Level 25.8 MEQ/L (21.0-32.0) 29.2 MEQ/L (21.0-32.0) Anion Gap 10 MEQ/L (5-15) 9 MEQ/L (5-15) Estimat Glomerular Filtration Rate 35 ML/MIN (>89) 45 ML/MIN (>89) Band Neutrophils % 1 % (0-6) Polychromasia % (0.0-1.9) Protein Corrected Calcium 7.8 MG/DL (8.5-10.1) Test 05/04/17 12:50 05/04/17 13:45 05/05/17 03:50 Phosphorus Level 3.2 MG/DL (2.5-4.9) 2.8 MG/DL (2.5-4.9) Magnesium Level 1.8 MG/DL (1.5-2.5) 1.5 MG/DL (1.5-2.5) Stool C. difficile Toxin (PCR) NEGATIVE (NEGATIVE) Stl C. difficile Toxin Epiderm 027 PRESUMPTIVE NEGATIVE White Blood Count 36.1 TH/MM3 (4.0-11.0) Red Blood Count 3.06 MIL/MM3 (4.50-5.90) Hemoglobin 8.8 GM/DL (13.0-17.0) Hematocrit 28.5 % (39.0-51.0) Mean Corpuscular Volume 93.1 FL (80.0-100.0) Mean Corpuscular Hemoglobin 28.7 PG (27.0-34.0) Mean Corpuscular Hemoglobin Concent 30.8 % (32.0-36.0) Red Cell Distribution Width 14.5 % (11.6-17.2) Platelet Count 61 TH/MM3 (150-450) Mean Platelet Volume 11.7 FL (7.0-11.0) Neutrophils (%) (Auto) 87.8 % (16.0-70.0) Lymphocytes (%) (Auto) 3.4 % (9.0-44.0) Monocytes (%) (Auto) 8.1 % (0.0-8.0) Eosinophils (%) (Auto) 0.1 % (0.0-4.0) Basophils (%) (Auto) 0.6 % (0.0-2.0) Neutrophils # (Auto) 31.7 TH/MM3 (1.8-7.7) Lymphocytes # (Auto) 1.2 TH/MM3 (1.0-4.8) Monocytes # (Auto) 2.9 TH/MM3 (0-0.9) Eosinophils # (Auto) 0.1 TH/MM3 (0-0.4) Basophils # (Auto) 0.2 TH/MM3 (0-0.2) CBC Comment AUTO DIFF Differential Total Cells Counted 100 Neutrophils % (Manual) 86 % (16-70) Band Neutrophils % 3 % (0-6) Lymphocytes % 2 % (9-44) Monocytes % 6 % (0-8) Neutrophils # (Manual) 33.2 TH/MM3 (1.8-7.7) Metamyelocytes 3 % (0-1) Differential Comment FINAL DIFF MANUAL Toxic Vacuolation PRESENT (NONE SEEN) Platelet Estimate LOW (NORMAL) Platelet Morphology Comment ENLARGED (NORMAL) Polychromasia 2.4 % (0.0-1.9) Blood Urea Nitrogen 45 MG/DL (7-18) Creatinine 1.38 MG/DL (0.60-1.30) Random Glucose 145 MG/DL (74-106) Total Protein 6.2 GM/DL (6.4-8.2) Albumin 2.0 GM/DL (3.4-5.0) Calcium Level 6.9 MG/DL (8.5-10.1) Alkaline Phosphatase 239 U/L (45-117) Aspartate Amino Transf (AST/SGOT) 137 U/L (15-37) Alanine Aminotransferase (ALT/SGPT) 70 U/L (12-78) Total Bilirubin 6.1 MG/DL (0.2-1.0) Sodium Level 146 MEQ/L (136-145) Potassium Level 2.2 MEQ/L (3.5-5.1) Chloride Level 109 MEQ/L (98-107) Carbon Dioxide Level 28.6 MEQ/L (21.0-32.0) Anion Gap 8 MEQ/L (5-15) Estimat Glomerular Filtration Rate 52 ML/MIN (>89) Protein Corrected Calcium 7.4 MG/DL (8.5-10.1) Result Diagram: 05/05/17 0350 05/05/17 0350 Microbiology Microbiology Date/Time Source Procedure Growth Status 05/03/17 10:10 Blood Peripheral Aerobic Blood Culture - Preliminary NO GROWTH IN 2 DAYS Resulted 05/03/17 10:10 Blood Peripheral Anaerobic Blood Culture - Preliminary NO GROWTH IN 2 DAYS Resulted 05/03/17 08:35 Blood Peripheral Aerobic Blood Culture - Preliminary NO GROWTH IN 2 DAYS Resulted 05/03/17 08:35 Blood Peripheral Anaerobic Blood Culture - Preliminary NO GROWTH IN 2 DAYS Resulted Imaging Last Impressions Abdomen/Pelvis CT 05/04/17 0000 Signed Impressions: Service Date/Time: Thursday, May 04, 2017 16:12 - CONCLUSION: 1. COPD changes with minimal bilateral effusions. 2. Small cirrhotic appearing liver with diffuse fatty infiltration. 3. Diffuse high density ascites throughout the abdomen similar in appearance to previous of 04/27/17. 4. Mild diffuse small bowel thickening with no evidence of obstruction. Andrzej Loaiza MD Chest X-Ray 05/03/17 0000 Signed Impressions: Service Date/Time: Wednesday, May 03, 2017 07:53 - CONCLUSION: Improving bilateral pulmonary infiltrates. Cliff Mcnair Jr., MD Brain MRI 05/02/17 0000 Signed Impressions: Service Date/Time: Tuesday, May 02, 2017 13:22 - CONCLUSION: 1. No evidence of acute infarction or acute hemorrhage. 2. Diffuse confluent disseminated white matter signal abnormalities in the supratentorial brain is nonspecific in appearance and could be due to diffuse white matter disease or ischemic process. Cliff Lugo MD Abdomen Ultrasound 04/30/17 0000 Signed Impressions: Service Date/Time: Sunday, April 30, 2017 11:40 - CONCLUSION: Moderate ascites is still present. Jesus Duncan MD Paracentesis 04/27/17 1452 Signed Impressions: Service Date/Time: Thursday, April 27, 2017 15:51 - CONCLUSION: 1. One complicated CT-guided paracentesis. 2. Profound hepatic steatosis. Wallace Cordoba MD Head CT 04/27/17 0000 Signed Impressions: Service Date/Time: Thursday, April 27, 2017 15:44 - CONCLUSION: Diffuse atrophy is present. Areas of encephalomalacia involving the right temporal tip and the left orbitofrontal cortices. No evidence of acute hemorrhage or edema Jesus Duncan MD Procedures 04/27 intubation, right IJ central line 04/28 CT-guided Paracentesis, 4 L . Assessment and Plan Disease Oriented Problem List: (1) Respiratory failure, acute (2) COPD (chronic obstructive pulmonary disease) (3) Tobacco abuse (4) Hepatic encephalopathy (5) Pneumonia (6) Severe sepsis (7) Acute kidney injury (8) Hypokalemia (9) Alcohol abuse (10) Metabolic acidosis Symptom Scale: (1) Dyspnea (2) Encephalopathy Pertinent Non-Medical Issues Psychosocial:Per EMR patient reported to be homeless though at times resides in a hotel room. Per case management record- patient reports no Social Security number or contact persons. Per prior visit ID in EMR, note a scanned ID card documenting SSN #[id number]. During a prior visit in EMR 2014, contacts documented a brother Edin Goode @ [address] [place] [address] --> case management notes that the patient reports brother however he was living in that mobile home with his sister in law. Multiple hospitalizations note patient homeless and no other family reported. Searches through available resources via case management this admission with no additional family to contact. Discussed with legal 05/03/17 a proceed with friend as proxy. Spiritual: Not known Legal:Patient currently intubated and sedated and unable to participate in decision-making. Not clear at this time if he will recover enough to participate in decision-making. Prior to intubation and sedation ED physician notes that patient did not have the capacity to make his own decisions. Patient previously listed a brother [Edin Goode] as a contact during past hospitalizations, however per later records/admissions he later indicated this brother . No other family contact has been listed. need to obtain [employer] report to locate next of kin; if no next of kin can be identified may need appointed /temporary legal decision-maker such as social work advantage. SSN# per prior ID card scanned in EMR: [id number].Searches through available resources via case management/financial [employer] this admission with no additional family to contact. Discussed with legal 05/03/17 , may proceed with friend as proxy. 05/05/17 friend and rom Joseph agrees to serve as healthcare proxy for this patient. Ethical issues impacting care:no ethical issues identified at this time Important Contacts None listed; Patient previously reported a brother Edin Goode in [place] as a contact however this person during later visits was reported to be . No other family is known at this time. Landlord/friend Opal Leonardo; [facility]. [phone] ritesh // [phone] office . Prognosis Condition is critical, Prognosis at this time guarded in terms of survival and recovery. Patient with long history of EtOH and various complications secondary to. Now with multiorgan failure requiring mechanical vent. He remains at risk for ongoing, medications and setbacks. If he does survive current acute hospitalization, he will likely have ongoing risk for further decline in complications. . Code Status: Full Code Plan * Legal decision maker:Patient currently intubated and sedated and unable to participate in decision-making. Prior to intubation and sedation ED physician notes that patient did not have the capacity to make his own decisions. Patient previously listed a brother as a contact during past hospitalizations, however per later records/admissions he later indicated this brother . No other family contact has been listed. need to obtain ACC[employer]INT report to locate next of kin; if no next of kin can be identified may need appointed / temporary legal decision-maker such as social work advantage. Rom informs patient may have a daughter though did not know her name or location. She is going to continue to look through patient's paperwork in his rented room to see if she can find more contact information. 05/03/17 [employer] pending. CM has d/ w financial svcs, ACCURINT report pending, she will advise me later once any results obtained. If no family identified may d/w friend/jourdand if she would be willing/able to serve as proxy as has known pt many years. 05/04/17 d/w legal dept, no return of family from [employer], may proceed w friend serving as proxy if she is willing/able . 05/05/17 -- able to meet with jonnathan Joseph at bedside, she is willing to serve as healthcare proxy for this patient. * Goals: Met with Opal at length at bedside. She has known the patient for many years. She tells me they refer to him as "Melissa ". She is just learning about the extent of his medical conditions. She appears to have a very simple understanding of things. No decisions are made today regarding CODE STATUS or any other interventions and treatments. She wishes to take more time to think about conditions and options before any further decisions are made. I have provided her with palliative contact information, will continue to follow-up with her in the coming days. * CODE STATUS: Full code by default * SYMPTOMS: --Encephalopathy/AMS-now intubated and sedated. Long history of EtOH abuse, seizures and secondary injuries. Likely multifactorial: Hepatic, renal dysfunction, sepsis, respiratory failure. repeat EEG severe encephalopathy. No sedation for several days. still minimally responsive. MRI neg for acute process. --Dyspnea-admitted with pneumonia, worsening respiratory status now intubated , tolerating CPAP a few hrs at a time. Still encephalopathic which may limit ventilator weaning/ability to maintain airway. * Palliative care will continue to follow during hospital course as condition evolves, to assist patient/decision-maker with understanding of medical conditions, weighing benefits/burdens of treatment options, for clarification of goals of treatment. Additionally will assist with any symptoms of palliative concern Time Spent Total Floor Time (mins): 40 (Chart review, discussion with nursing, PE, discussion with proxy at bedside) Attestation To help prompt me to consider important information that might be impacting today's encounter and assessment, information from prior notes written by myself or my colleagues may have been "brought forward" into today's note. My signature on this note, however, is an attestation that I personally performed the exam, history, and/or decision-making noted today, and, unless otherwise indicated, the interactions with patient, family, and staff as well as the review of records all occurred today. I also attest that the listed assessment and stated plan reflect my best clinical judgment today based on the combination of historical information, prior notes, and today's exam/ interactions. When time spent is documented, it refers only to time spent today by the signer, or if indicated, combined time spent today by collaborating physician/nurse practitioner. Liliam Shell May 05, 2017 13:11
[2017-05-05 17:55] LABS: MAGNESIUM 1.8 MG/DL (1.5-2.5)
[2017-05-05] MEDS: MICAFUNGIN INJ 150 MG in SODIUM CHLORIDE 0.9% INJ 100 ML IV SCH (22:00)
[2017-05-06] VITALS (23 sets, daily range): BP systolic 106–138; BP diastolic 55–83; PULSE 80–93; TEMP 97.6–98.3; O2SAT 93–100
[2017-05-06] MEDS: FAMOTIDINE 20 MG/2 ML VIAL IV PUSH SCH ×2 (01:49→13:38)
[2017-05-06] MEDS: metroNIDAZOLE 500 MG INJ 100 ML IV SCH ×3 (01:52→16:24)
--- NOTE | 2017-05-06 05:25 | RADRPT ---
EXAM DATE/TIME: 05/06/2017 03:33 [facility] COMPARISON: CHEST SINGLE AP, May 03, 2017, 7:53. INDICATIONS : Shortness of breath, possible pulmonary disease. MEDICAL HISTORY : Chronic obstructive pulmonary disease. Renal failure, acute. Seizures CVA SURGICAL HISTORY : ORIF Rt Hip ENCOUNTER: Subsequent ACUITY: 1 week PAIN SCORE: Non-responsive. LOCATION: Bilateral chest FINDINGS: ET tube, NG tube, and right internal jugular central line are all well placed. The heart size is norm al. There is increased interstitial markings seen throughout the left lung and in the right upper melisa g. These appear to be improved from the prior exam. No effusion is seen. CONCLUSION: Persistent but improving increased interstitial markings likely related to improving edema. Carmine Saucedo MD on May 06, 2017 at 5:22 Board Certified Radiologist. This report was verified electronically.
[2017-05-06] MEDS: INSULIN NovoLIN REGULAR SUPPLEMENTAL SCALE SQ SCH ×6 (05:27→20:00)
[2017-05-06] MEDS: OCTREOTIDE INJ 50 MCG/ML AMP IV PUSH SCH ×3 (05:28→22:00)
[2017-05-06] MEDS: ALBUMIN 25% INJ 50 ML IV SCH ×2 (05:28→17:51)
[2017-05-06] MEDS: CEFEPIME INJ 2,000 MG in SODIUM CHLORIDE 0.9% INJ 100 ML IV SCH ×2 (05:28→16:23)
[2017-05-06] MEDS: VANCOMYCIN 500 MG VIAL (FOR ORAL USE ONLY) PO SCH ×4 (05:28→22:13)
[2017-05-06] MEDS: FREE WATER G-TUBE SCH ×4 (05:28→22:14)
[2017-05-06 06:54] LABS: AUTOMATED NEUTROPHIL # 32.8 TH/MM3 (1.8-7.7); BASOPHIL # 0.1 TH/MM3 (0-0.2); BASOPHIL % 0.2 % (0.0-2.0); EOSINOPHIL # 0.1 TH/MM3 (0-0.4); EOSINOPHIL % 0.2 % (0.0-4.0); HEMATOCRIT 29.3 % (39.0-51.0); LYMPH % 3.3 % (9.0-44.0); LYMPHOCYTE # 1.3 TH/MM3 (1.0-4.8); MEAN CELL VOLUME 90.7 FL (80.0-100.0); MEAN CORPUSCULAR HEMOGLOBIN 28.6 PG (27.0-34.0); MEAN CORPUSCULAR HGB CONC 31.5 % (32.0-36.0); MONO % 9.4 % (0.0-8.0); NEUT % 86.9 % (16.0-70.0); PLATELET COUNT 88 TH/MM3 (150-450); RED BLOOD COUNT 3.23 MIL/MM3 (4.50-5.90); RED CELL DISTRIBUTION WIDTH 14.9 % (11.6-17.2); WHITE BLOOD COUNT 37.8 TH/MM3 (4.0-11.0)
[2017-05-06 07:15] LABS: HEMO FLAGS AUTO DIFF
[2017-05-06 07:16] LABS: BICARBONATE 26.3 MEQ/L (21.0-32.0); CALCIUM-PROTEIN CORRECTED 8.1 MG/DL (8.5-10.1); MAGNESIUM 1.8 MG/DL (1.5-2.5); TOTAL BILIRUBIN ADULT 5.3 MG/DL (0.2-1.0)
[2017-05-06 07:31] LABS: POTASSIUM 2.5 MEQ/L (3.5-5.1)
[2017-05-06] MEDS: SODIUM CHLORIDE 0.9% FLUSH 10 ML FLUSH IV FLUSH SCH ×2 (07:48→21:00)
[2017-05-06] MEDS: CALCIUM CARBONATE 1.25 GM (CA 500 MG) TAB PO SCH ×2 (07:49→21:00)
[2017-05-06] MEDS: MULTIVITAMIN TAB PO SCH (07:49)
[2017-05-06] MEDS: HYDROCORTISONE SOD SUCCINATE 100 MG VIAL IV PUSH SCH ×2 (07:49→22:12)
[2017-05-06] MEDS: AZITHROMYCIN 250 MG TAB PO SCH (07:49)
[2017-05-06] MEDS: THIAMINE HCL 100 MG TAB PO SCH (07:49)
[2017-05-06] MEDS: FOLIC ACID 1 MG TAB PO SCH (07:49)
[2017-05-06] MEDS: POTASSIUM CHLOR 40 MEQ PREMIX 100 ML IV PRN ×2 (07:50→10:24)
[2017-05-06 08:39] LABS: BANDS 3 % (0-6); CORRECTED NUCLEATED RBC 2 /100 WBC (0-0); WBC DIFF SAMPLE 100
[2017-05-06 08:40] LABS: HYPERSEGMENTED POLYS 1+ (NORMAL); POLYS (SEG NEUTROPHILS) 87 % (16-70)
[2017-05-06 08:41] LABS: PLATELET ESTIMATE SMEAR LOW (NORMAL); PLATELET MORPHOLOGY ENLARGED (NORMAL); SCAN/DIFF FINAL DIFF MANUAL
[2017-05-06] MEDS: DOCUSATE SODIUM 50 MG/SENNA 8.6 MG TAB PO SCH ×2 (09:00→21:00)
--- NOTE | 2017-05-06 11:35 | HHI.HCPN ---
Reason for visit a. To assist with evaluation and management of symptoms including: encephalopathy, dyspnea b. To assist medical decision maker(s) with: better understanding of current medical conditions; weighing benefits/burdens of medical treatment options; making medical treatment decisions. Subjective/Interval History Pt seen to follow up on neurological status, goals with newly established HC proxy. (friend Opal yesterday agreed to serve as HC proxy) Stable in ICU. On CPAP a few hrs per day. + loose stool, treating as Cdiff per ID due to +bowel thickening on CT abdomen. On cefepime, micafungin, azithromycin, oral vanco, IV flagyl. Has not received sedation for days- nsg reports this morning patient more alert and following some commands. Patient seen in room nurse at bedside. He is on CPAP. He is awake eyes open tracking examiner. He intermittently inconsistently nods to some questions when I mention Opal has a friend he seems to nod yes. He is restless with his hands appears to be trying to get out of the restraints. Explain hospitalization and acute illness to him. He does follow simple commands when repeated to do so, enrollment nurse weakly bilaterally, moves both feet to command. Difficult to fully assess his orientation however he is much more alert than during prior interactions. He is currently breathing comfortably on CPAP now with mental status has improved it may be possible to work towards medical extubation. If he is able to medically extubate possible he may be able to participate in goals and decision making. Opal has not been in yet today, I will plan to update her further pending patient neurological and extubation status. . Advance Directives Living Will: Never completed Health Care Surrogate: Never completed Durable Power of Planning Rn: Never completed Objective Vital Signs Date Time Temp Pulse Resp B/P (MAP) Pulse Ox O2 Delivery O2 Flow Rate FiO2 05/06/17 11:00 83 121/72 (88) 100 05/06/17 10:00 84 118/66 (83) 100 05/06/17 10:00 82 05/06/17 09:00 87 136/83 (100) 100 05/06/17 08:00 80 05/06/17 08:00 40 05/06/17 08:00 35 05/06/17 08:00 97.6 87 127/73 (91) 100 05/06/17 07:56 35 05/06/17 07:56 100 35 05/06/17 07:00 93 127/80 (96) 100 05/06/17 06:00 82 05/06/17 04:00 40 05/06/17 04:00 93 05/06/17 04:00 97.8 93 138/77 (97) 100 05/06/17 03:56 100 40 05/06/17 02:00 85 05/06/17 00:00 97.6 85 129/73 (91) 97 05/06/17 00:00 85 05/06/17 00:00 40 05/05/17 23:48 95 40 05/05/17 22:00 84 05/05/17 22:00 99 40 05/05/17 20:00 100 40 05/05/17 20:00 40 05/05/17 20:00 97.7 87 130/86 (101) 100 05/05/17 20:00 87 05/05/17 18:00 88 05/05/17 16:44 100 40 05/05/17 16:00 40 05/05/17 16:00 79 05/05/17 16:00 97.5 79 14 124/70 (88) 100 05/05/17 14:00 89 05/05/17 12:00 79 05/05/17 12:00 97.8 79 14 130/77 (94) 100 05/05/17 12:00 40 Intake & Output 05/06/17 05/06/17 07:00 19:00 Intake Total 1462 ml Output Total 550 ml 0 ml Balance 912 ml 0 ml IV Total 350 ml Tube Feeding 412 ml Other 700 ml Output Urine Total 400 ml Tube Feeding Residual Discard 0 ml 0 ml Drainage Total 150 ml # Bowel Movements 2 Physical Exam CONSTITUTIONAL/GENERAL: Chronically ill-appearing patient, awake on mechanical vent TUBES/LINES/DRAINS: Right IJ central line, ET tube, OG tube, external catheter, wound drainage bag LLQ SKIN: Skin temperature appropriate warm. wound drainage bag LLQ- reported paracentesis site. Chronic scaling, thickening noted to skin bilateral lower extremities especially to feet. HEAD: Atraumatic. Normocephalic. EYES: Pupils 3 mm, brisk reaction to light. No injection or drainage. Fundi not examined. CARDIOVASCULAR: Regular rate and rhythm without murmur. No JVD. faint pedal pulses. Radial pulses palpable.+ Edema bilateral upper extremities RESPIRATORY/CHEST: Symmetric unlabored respirations via ETT to mech vent on CPAP , coarse scattered rhonchi. Breath sounds equal bilaterally. GASTROINTESTINAL: Abdomen soft, slightly distended. no readily palpable masses. OG w TF infusing. BS normoactive GENITOURINARY: Without palpable bladder distension. dark yellow urine present in catheter NEUROLOGICAL: no sedation, mechanical vent. Awake, eyes open. Tracks examiner. Nods inconsistently to yes and no questions. Unable to assess orientation. Does follow simple commands to move hands, station tender, and move feet though does require repetition. PSYCHIATRIC: Limited assessment due to clinical condition-no apparent anxiety. Diagnostic Tests Laboratory Laboratory Tests Test 05/03/17 18:00 05/04/17 01:10 05/04/17 05:00 05/04/17 12:50 Potassium Level 2.3 MEQ/L (3.5-5.1) 3.1 MEQ/L (3.5-5.1) 2.6 MEQ/L (3.5-5.1) Phosphorus Level 1.4 MG/DL (2.5-4.9) 3.2 MG/DL (2.5-4.9) Magnesium Level 1.0 MG/DL (1.5-2.5) 1.8 MG/DL (1.5-2.5) White Blood Count 37.9 TH/MM3 (4.0-11.0) Red Blood Count 3.42 MIL/MM3 (4.50-5.90) Hemoglobin 9.8 GM/DL (13.0-17.0) Hematocrit 30.8 % (39.0-51.0) Mean Corpuscular Volume 90.2 FL (80.0-100.0) Mean Corpuscular Hemoglobin 28.6 PG (27.0-34.0) Mean Corpuscular Hemoglobin Concent 31.7 % (32.0-36.0) Red Cell Distribution Width 14.0 % (11.6-17.2) Platelet Count 54 TH/MM3 (150-450) Mean Platelet Volume 11.2 FL (7.0-11.0) Neutrophils (%) (Auto) 89.8 % (16.0-70.0) Lymphocytes (%) (Auto) 3.1 % (9.0-44.0) Monocytes (%) (Auto) 6.8 % (0.0-8.0) Eosinophils (%) (Auto) 0.0 % (0.0-4.0) Basophils (%) (Auto) 0.3 % (0.0-2.0) Neutrophils # (Auto) 34.1 TH/MM3 (1.8-7.7) Lymphocytes # (Auto) 1.2 TH/MM3 (1.0-4.8) Monocytes # (Auto) 2.6 TH/MM3 (0-0.9) Eosinophils # (Auto) 0.0 TH/MM3 (0-0.4) Basophils # (Auto) 0.1 TH/MM3 (0-0.2) CBC Comment AUTO DIFF Differential Total Cells Counted 100 Neutrophils % (Manual) 93 % (16-70) Band Neutrophils % 1 % (0-6) Lymphocytes % 1 % (9-44) Monocytes % 5 % (0-8) Neutrophils # (Manual) 35.6 TH/MM3 (1.8-7.7) Differential Comment FINAL DIFF MANUAL Platelet Estimate LOW (NORMAL) Platelet Morphology Comment ENLARGED (NORMAL) Polychromasia % (0.0-1.9) Blood Urea Nitrogen 45 MG/DL (7-18) Creatinine 1.58 MG/DL (0.60-1.30) Random Glucose 177 MG/DL (74-106) Total Protein 6.1 GM/DL (6.4-8.2) Albumin 2.1 GM/DL (3.4-5.0) Calcium Level 7.3 MG/DL (8.5-10.1) Alkaline Phosphatase 260 U/L (45-117) Aspartate Amino Transf (AST/SGOT) 135 U/L (15-37) Alanine Aminotransferase (ALT/SGPT) 67 U/L (12-78) Total Bilirubin 7.0 MG/DL (0.2-1.0) Sodium Level 152 MEQ/L (136-145) Chloride Level 114 MEQ/L (98-107) Carbon Dioxide Level 29.2 MEQ/L (21.0-32.0) Anion Gap 9 MEQ/L (5-15) Estimat Glomerular Filtration Rate 45 ML/MIN (>89) Protein Corrected Calcium 7.8 MG/DL (8.5-10.1) Test 05/04/17 13:45 05/05/17 03:50 05/05/17 16:00 05/06/17 06:05 Stool C. difficile Toxin (PCR) NEGATIVE (NEGATIVE) Stl C. difficile Toxin Epiderm 027 PRESUMPTIVE NEGATIVE White Blood Count 36.1 TH/MM3 (4.0-11.0) 37.8 TH/MM3 (4.0-11.0) Red Blood Count 3.06 MIL/MM3 (4.50-5.90) 3.23 MIL/MM3 (4.50-5.90) Hemoglobin 8.8 GM/DL (13.0-17.0) 9.2 GM/DL (13.0-17.0) Hematocrit 28.5 % (39.0-51.0) 29.3 % (39.0-51.0) Mean Corpuscular Volume 93.1 FL (80.0-100.0) 90.7 FL (80.0-100.0) Mean Corpuscular Hemoglobin 28.7 PG (27.0-34.0) 28.6 PG (27.0-34.0) Mean Corpuscular Hemoglobin Concent 30.8 % (32.0-36.0) 31.5 % (32.0-36.0) Red Cell Distribution Width 14.5 % (11.6-17.2) 14.9 % (11.6-17.2) Platelet Count 61 TH/MM3 (150-450) 88 TH/MM3 (150-450) Mean Platelet Volume 11.7 FL (7.0-11.0) 11.1 FL (7.0-11.0) Neutrophils (%) (Auto) 87.8 % (16.0-70.0) 86.9 % (16.0-70.0) Lymphocytes (%) (Auto) 3.4 % (9.0-44.0) 3.3 % (9.0-44.0) Monocytes (%) (Auto) 8.1 % (0.0-8.0) 9.4 % (0.0-8.0) Eosinophils (%) (Auto) 0.1 % (0.0-4.0) 0.2 % (0.0-4.0) Basophils (%) (Auto) 0.6 % (0.0-2.0) 0.2 % (0.0-2.0) Neutrophils # (Auto) 31.7 TH/MM3 (1.8-7.7) 32.8 TH/MM3 (1.8-7.7) Lymphocytes # (Auto) 1.2 TH/MM3 (1.0-4.8) 1.3 TH/MM3 (1.0-4.8) Monocytes # (Auto) 2.9 TH/MM3 (0-0.9) 3.6 TH/MM3 (0-0.9) Eosinophils # (Auto) 0.1 TH/MM3 (0-0.4) 0.1 TH/MM3 (0-0.4) Basophils # (Auto) 0.2 TH/MM3 (0-0.2) 0.1 TH/MM3 (0-0.2) CBC Comment AUTO DIFF AUTO DIFF Differential Total Cells Counted 100 100 Neutrophils % (Manual) 86 % (16-70) 87 % (16-70) Band Neutrophils % 3 % (0-6) 3 % (0-6) Lymphocytes % 2 % (9-44) 1 % (9-44) Monocytes % 6 % (0-8) 9 % (0-8) Neutrophils # (Manual) 33.2 TH/MM3 (1.8-7.7) 34.0 TH/MM3 (1.8-7.7) Metamyelocytes 3 % (0-1) Differential Comment FINAL DIFF MANUAL FINAL DIFF MANUAL Toxic Vacuolation PRESENT (NONE SEEN) Platelet Estimate LOW (NORMAL) LOW (NORMAL) Platelet Morphology Comment ENLARGED (NORMAL) ENLARGED (NORMAL) Polychromasia 2.4 % (0.0-1.9) Blood Urea Nitrogen 45 MG/DL (7-18) 47 MG/DL (7-18) Creatinine 1.38 MG/DL (0.60-1.30) 1.18 MG/DL (0.60-1.30) Random Glucose 145 MG/DL (74-106) 146 MG/DL (74-106) Total Protein 6.2 GM/DL (6.4-8.2) 5.9 GM/DL (6.4-8.2) Albumin 2.0 GM/DL (3.4-5.0) 2.1 GM/DL (3.4-5.0) Calcium Level 6.9 MG/DL (8.5-10.1) 7.4 MG/DL (8.5-10.1) Phosphorus Level 2.8 MG/DL (2.5-4.9) Magnesium Level 1.5 MG/DL (1.5-2.5) 1.8 MG/DL (1.5-2.5) 1.8 MG/DL (1.5-2.5) Alkaline Phosphatase 239 U/L (45-117) 220 U/L (45-117) Aspartate Amino Transf (AST/SGOT) 137 U/L (15-37) 118 U/L (15-37) Alanine Aminotransferase (ALT/SGPT) 70 U/L (12-78) 82 U/L (12-78) Total Bilirubin 6.1 MG/DL (0.2-1.0) 5.3 MG/DL (0.2-1.0) Sodium Level 146 MEQ/L (136-145) 146 MEQ/L (136-145) Potassium Level 2.2 MEQ/L (3.5-5.1) 3.0 MEQ/L (3.5-5.1) 2.5 MEQ/L (3.5-5.1) Chloride Level 109 MEQ/L (98-107) 110 MEQ/L (98-107) Carbon Dioxide Level 28.6 MEQ/L (21.0-32.0) 26.3 MEQ/L (21.0-32.0) Anion Gap 8 MEQ/L (5-15) 10 MEQ/L (5-15) Estimat Glomerular Filtration Rate 52 ML/MIN (>89) 62 ML/MIN (>89) Protein Corrected Calcium 7.4 MG/DL (8.5-10.1) 8.1 MG/DL (8.5-10.1) Nucleated Red Blood Cells 2 /100 WBC (0-0) Hypersegmented Polys 1+ (NORMAL) Result Diagram: 05/06/1760405/06/1705 Microbiology Microbiology Date/Time Source Procedure Growth Status 05/03/17 10:10 Blood Peripheral Aerobic Blood Culture - Preliminary NO GROWTH IN 3 DAYS Resulted 05/03/17 10:10 Blood Peripheral Anaerobic Blood Culture - Preliminary NO GROWTH IN 3 DAYS Resulted 04/30/17 17:25 Fluid Peritoneal Fluid Gram Stain - Final Complete 04/30/17 17:25 Fluid Peritoneal Fluid Body Fluid Culture - Final NO GROWTH IN 72 HRS.--AEROBICALLY OR ... Complete 05/02/17 08:10 Sputum Endotracheal Gram Stain - Final Complete 05/02/17 08:10 Sputum Endotracheal Sputum Culture - Final HEAVY GROWTH NORMAL RESPIRATORY SHERYL Complete 04/26/17 20:10 Urine Random Urine Urine Culture - Final Escherichia Coli Complete Imaging Last Impressions Chest X-Ray 05/06/17 0600 Signed Impressions: Service Date/Time: April 03:33 - CONCLUSION: Persistent but improving increased interstitial markings likely related to improving edema. Carmine Saucedo MD Abdomen/Pelvis CT 05/04/17 0000 Signed Impressions: Service Date/Time: Thursday, May 04, 2017 16:12 - CONCLUSION: 1. COPD changes with minimal bilateral effusions. 2. Small cirrhotic appearing liver with diffuse fatty infiltration. 3. Diffuse high density ascites throughout the abdomen similar in appearance to previous of 04/27/17. 4. Mild diffuse small bowel thickening with no evidence of obstruction. Andrzej Loaiza MD Brain MRI 05/02/17 0000 Signed Impressions: Service Date/Time: Tuesday, May 02, 2017 13:22 - CONCLUSION: 1. No evidence of acute infarction or acute hemorrhage. 2. Diffuse confluent disseminated white matter signal abnormalities in the supratentorial brain is nonspecific in appearance and could be due to diffuse white matter disease or ischemic process. Cliff Lugo MD Abdomen Ultrasound 04/30/17 0000 Signed Impressions: Service Date/Time: Sunday, April 30, 2017 11:40 - CONCLUSION: Moderate ascites is still present. Jesus Duncan MD Paracentesis 04/27/17 1452 Signed Impressions: Service Date/Time: Thursday, April 27, 2017 15:51 - CONCLUSION: 1. One complicated CT-guided paracentesis. 2. Profound hepatic steatosis. Wallace Cordoba MD Head CT 04/27/17 0000 Signed Impressions: Service Date/Time: Thursday, April 27, 2017 15:44 - CONCLUSION: Diffuse atrophy is present. Areas of encephalomalacia involving the right temporal tip and the left orbitofrontal cortices. No evidence of acute hemorrhage or edema Jesus Duncan MD Procedures 04/27 intubation, right IJ central line 04/28 CT-guided Paracentesis, 4 L . Assessment and Plan Disease Oriented Problem List: (1) Respiratory failure, acute (2) COPD (chronic obstructive pulmonary disease) (3) Tobacco abuse (4) Hepatic encephalopathy (5) Pneumonia (6) Severe sepsis (7) Acute kidney injury (8) Hypokalemia (9) Alcohol abuse (10) Metabolic acidosis Symptom Scale: (1) Dyspnea (2) Encephalopathy Pertinent Non-Medical Issues Psychosocial:Per EMR patient reported to be homeless though at times resides in a hotel room. Per case management record- patient reports no Social Security number or contact persons. Per prior visit ID in EMR, note a scanned ID card documenting SSN #[id number]. During a prior visit in EMR 2014, contacts documented a brother Edin Goode @ [address] [place] [address] --> case management notes that the patient reports brother however he was living in that mobile home with his sister in law. Multiple hospitalizations note patient homeless and no other family reported. Searches through available resources via case management this admission with no additional family to contact. Discussed with legal 05/03/17 a proceed with friend as proxy. Spiritual: Not known Legal:Patient currently intubated and sedated and unable to participate in decision-making. Not clear at this time if he will recover enough to participate in decision-making. Prior to intubation and sedation ED physician notes that patient did not have the capacity to make his own decisions. Patient previously listed a brother [Edin Goode] as a contact during past hospitalizations, however per later records/admissions he later indicated this brother . No other family contact has been listed. need to obtain [employer] report to locate next of kin; if no next of kin can be identified may need appointed /temporary legal decision-maker such as social work advantage. SSN# per prior ID card scanned in EMR: [id number].Searches through available resources via case management/financial svs this admission with no additional family to contact. Discussed with legal 05/03/17 , may proceed with friend as proxy. 05/05/17 friend and rom Joseph agrees to serve as healthcare proxy for this patient. Ethical issues impacting care:no ethical issues identified at this time Important Contacts None listed; Patient previously reported a brother Edin Goode in [place] as a contact however this person during later visits was reported to be . No other family is known at this time. Landlord/friend Opal Leonardo; [facility]. [phone] ritesh // [phone] office . Prognosis Condition is critical, Prognosis at this time guarded in terms of survival and recovery. Patient with long history of EtOH and various complications secondary to. Now with multiorgan failure requiring mechanical vent. He remains at risk for ongoing, medications and setbacks. If he does survive current acute hospitalization, he will likely have ongoing risk for further decline in complications. . Code Status: Full Code Plan * Legal decision maker:Patient currently intubated and sedated and unable to participate in decision-making. Prior to intubation and sedation ED physician notes that patient did not have the capacity to make his own decisions. Patient previously listed a brother as a contact during past hospitalizations, however per later records/admissions he later indicated this brother . 05/04/17 d/w legal dept, no return of family from [employer], may proceed w friend serving as proxy if she is willing/able . 05/05/17 -- met with friend and rom Joseph at bedside, she is willing to serve as healthcare proxy for this patient. 05/06/17-patient more alert and interactive possible he may be able to participate in decision-making in the coming days. * Goals: Met with Opal, patient friend and now healthcare proxy at length yesterday. She wishes to take more time to think about conditions and options before any further decisions are made. I have provided her with palliative contact information, will continue to follow-up with her in the coming days. Patient today (05/06/17) more awake and interactive, possible he may be able to participate in goals /decision-making in the coming days. * CODE STATUS: Full code by default * SYMPTOMS: --Encephalopathy/AMS-now intubated and sedated. Long history of EtOH abuse, seizures and secondary injuries. Likely multifactorial: Hepatic, renal dysfunction, sepsis, respiratory failure. repeat EEG severe encephalopathy. No sedation for several days--been minimally responsive. MRI neg for acute process. Today patient more wakeful and interactive following commands. --Dyspnea-admitted with pneumonia, worsening respiratory status now intubated , tolerating CPAP a few hrs at a time. Still encephalopathic which may limit ventilator weaning/ability to maintain airway. Today patient more wakeful and tolerating CPAP and maintaining alertness possible he may be able to progress towards medical extubation * Palliative care will continue to follow during hospital course as condition evolves, to assist patient/decision-maker with understanding of medical conditions, weighing benefits/burdens of treatment options, for clarification of goals of treatment. Additionally will assist with any symptoms of palliative concern Time Spent Total Floor Time (mins): 20 Attestation To help prompt me to consider important information that might be impacting today's encounter and assessment, information from prior notes written by myself or my colleagues may have been "brought forward" into today's note. My signature on this note, however, is an attestation that I personally performed the exam, history, and/or decision-making noted today, and, unless otherwise indicated, the interactions with patient, family, and staff as well as the review of records all occurred today. I also attest that the listed assessment and stated plan reflect my best clinical judgment today based on the combination of historical information, prior notes, and today's exam/ interactions. When time spent is documented, it refers only to time spent today by the signer, or if indicated, combined time spent today by collaborating physician/nurse practitioner. Liliam Shell May 06, 2017 11:35
[2017-05-06] MEDS ORDERED: MAGNESIUM SULFATE 1 GM PREMIX 100 ML IV ONE (13:15)
--- NOTE | 2017-05-06 14:10 | HHI.CCPN ---
Subjective Remarks/Hospital Course Patient is a 61-year-old male with past medical history of EtOH abuse, chronic obstructive pulmonary disease, seizure disorder, cerebrovascular accident, who presented to [facility] emergency department earlier this morning via EMS, under supposedly a Dwyer acted. The patient told the artist's representative of the Hotel where he is staying that he wants to commit suicide. The police were called and the patient was brought in to the hospital. On arrival to the emergency department he was found to have leukocytosis with a WBC of 21.6 and was in renal failure with creatinine of 2.51. The patient also had mild lactic acidemia with elevated lactic acid level 2.4 and elevated AST: 121 with total bilirubin 2.9. He had an ABG done this morning on 4 liters oxygen was which showed a pH of 7.34, CO2 28 and pAO2 135, bicarb 15, saturation 96%. Chest x-ray In the ER showed mild interstitial past is in the upper left lung. He also had CT abdomen and pelvis done which showed severe ascites along with steatosis of the liver and right inguinal hernia. [facility]. Critical care medicine was consulted for critical care management. When seen in ICU the patient was lethargic, unresponsive. He was subsequently intubated and placed on mechanical ventilation for airway protection. In the ICU the patient was hypotensive with systolic blood pressure in the 90s, A right IJ emergent central line was placed. 04/28 Patient is intubated off sedation started on Levophed yesterday 12 mics. s /p CT guided paracentesis with removal 4L. 04/29 Patient remains intubated and sedated with Fentanyl drip. Levophed down 7 mics, vasopressin added yesterday. Afebrile. On Bicarb drip. 04/30 Patient remains sedated with Fentanyl and intubated. Required increase FIO2/PEEP overnight given additional Bumex 2mg IV x1. CXR yesterday showed diffuse b/l pulm infiltrates. Levophed down to 5 mics, off Vasopressin. 05/01 Patient remains intubated off sedation Levophed down 3 mics. s/p paracentesis at bedside yesterday with removal 4L. Afebrile. Renal function worse today with Cr: 2.40 from 2.09. 05/02 No events overnight. Sedated with fentanyl and intubated, On Levophed 2mics. Tolerated CPAP for several hrs.. Cr: 2.28 from 2.4 05/03 Patient remains intubated, on no sedation unresponsive. MRI brain yesterday showed no evidence of hemorrhage/infarction. 05/04 No events overnight. Remains obtunded/unresponsive. Tmax 100.0 05/05: No acute events overnight, remains critically ill. WBC count 36.1. Ct abd shows ascites, C diff negative x2. Opens eyes, not following 05/06: Significant improvement in mentation today, WBC is elevated at 37.8 but patient is following commands. Drained tense ascites -appears cloud indicating bacterial peritonitis. K remains low at 2.5, getting IV and PO replacement Objective Vital Signs Date Time Temp Pulse Resp B/P (MAP) Pulse Ox O2 Delivery O2 Flow Rate FiO2 05/06/17 13:00 35 05/06/17 12:00 91 05/06/17 12:00 97.8 133/76 (95) 100 05/05/17 16:00 14 Intake and Output 05/06/17 05/06/17 05/07/17 08:00 16:00 00:00 Intake Total 1462 ml 200 ml Output Total 550.0 ml Balance 912.0 ml 200 ml Result Diagram: 05/06/17 0605 05/06/17 0605 Imaging Last Impressions Chest X-Ray 05/03/17 0000 Signed Impressions: Service Date/Time: Wednesday, May 03, 2017 07:53 - CONCLUSION: Improving bilateral pulmonary infiltrates. Cliff Mcnair Jr., MD Brain MRI 05/02/17 0000 Signed Impressions: Service Date/Time: Tuesday, May 02, 2017 13:22 - CONCLUSION: 1. No evidence of acute infarction or acute hemorrhage. 2. Diffuse confluent disseminated white matter signal abnormalities in the supratentorial brain is nonspecific in appearance and could be due to diffuse white matter disease or ischemic process. Cliff Lugo MD Abdomen Ultrasound 04/30/17 0000 Signed Impressions: Service Date/Time: Sunday, April 30, 2017 11:40 - CONCLUSION: Moderate ascites is still present. Jesus Duncan MD Paracentesis 04/27/17 1452 Signed Impressions: Service Date/Time: Thursday, April 27, 2017 15:51 - CONCLUSION: 1. One complicated CT-guided paracentesis. 2. Profound hepatic steatosis. Wallace Cordoba MD Head CT 04/27/17 0000 Signed Impressions: Service Date/Time: Thursday, April 27, 2017 15:44 - CONCLUSION: Diffuse atrophy is present. Areas of encephalomalacia involving the right temporal tip and the left orbitofrontal cortices. No evidence of acute hemorrhage or edema Jesus Duncan MD Abdomen/Pelvis CT 04/26/17 1724 Signed Impressions: Service Date/Time: Wednesday, April 26, 2017 21:23 - CONCLUSION: 1. Severe abdomino-pelvic ascites. 2. Steatosis of the liver. 3. Right inguinal hernia. Cliff Lugo MD Objective Remarks GENERAL: Patient is 61 yo critically ill intubated, but awake alert SKIN: Warm and dry. HEAD: Normocephalic. EYES: No scleral icterus. No injection or drainage. NECK: Supple, trachea midline. No JVD or lymphadenopathy. Orally intubated CARDIOVASCULAR: Regular rate and rhythm without murmurs, gallops, or rubs. RESPIRATORY: Breath sounds equal bilaterally. No accessory muscle use. GASTROINTESTINAL: non-tender, distended. Positive fluid thrill. US shows large volume ascites, paracentesis cloudy fluid MUSCULOSKELETAL: No cyanosis, or edema. Neuro: Intubated, off sedation opens eyes. following commands today A/P Assessment and Plan ASSESMENT Acute respiratory failure Encephalopathy. Severe sepsis, Leukocytosis SBP (spontaneous bacterial peritonitis) Ascites, Recurrent Acute kidney injury...improving Urinary tract infection. Hypokalemia. Lactic acidemia.. resolved Elevated AST. ETOH abuse. History of cerebrovascular accident and seizure disorder. History of chronic obstructive pulmonary disease. Electrolytes abnormalities (hypokalemia, Hypo Mag) Plan Neuro: Off sedation. Monitor neuro status. Neuro is following- Dr. Decker MRI brain 05/02: No evidence of infarction or hemorrhage Repeat EEG 05/02: Severe encephalopathy 04/27: EEG Mild- mod slowing. No epileptiform features. 04/27: CT brain: No acute findings On Lactulose 30ml QID, Rifaximin 550mg BID, Ammonia level: 29 On Thiamine, MVI, folic acid Pulm: On PRVC RR 14, TV 400, PEEP5, FIO2 40%. Tolerating CPAP today, possible extubation Bronchodilators, ICU vent bundle CXR improvements in b/l pulm infiltrates CV: Off Levophed Hydrocortisone- HC 25mg IV Q12 : Monitor renal function Is and Os, electrolytes replacement per protocol. Renal function is improving with Cr: normalizing UOP adequate Renal- Dr. Lane. Aggressive K replacement Free water 300ml Q6. Monitor sodium level. CT scan of the abdomen and pelvis showed no evidence of hydronephrosis, masses or stones. GI: On tube feeds- Nepro @40 ml/hr, on Pepcid 10 mg IV q. 12 for GI prophylaxis Monitor LFT's, s/p CT guided paracentesis with removal 4 on 04/27 and repeat Paracentesis at bedside on 04/30 with 4L removal. Repeat large vol paracentesis 05/05 shows cloudy ascites fluid indicating SBP Continue with albumin. Follow up on fluid cx- NGTD. ID: Leukocytosis, severe sepsis, SBP Continue with abx per ID ( Cefepime, micafungin, azithro, also oral vanco, IV flagyl) Added Vancomyin for possible SBP and enterococcus coverage BC 05/03: NGTD, 05/02 sputum: normal resp james Urine culture: E.coli. C-diff 05/01, 05/[address] abd/pelvis 04/26: Ascites , steatosis of live. Heme: Monitor CBC GI prophylaxis with Pepcid 10 mg IV q. 12 and DVT prophylaxis with SCDs. Endo: SSI for glucemic control Lines: Right IJ central line placed 04/27 Patient is critically ill with sepsis, resp failure , renal failure, encephalopathy and UTI. No signs of significant clinical improvement. Now with probable SBP. Vancomycin added Palliative care is following Level 3 Lynda Lou MD May 06, 2017 14:10
--- NOTE | 2017-05-06 14:31 | HHI.IDPN ---
Subjective Subjective Remarks cont to have heavy diarrhea Antibiotics deyanirasyn glenn Allergies: Coded Allergies: codeine (Unverified Allergy, Severe, N/V, 04/26/17) propoxyphene (Unverified Allergy, Severe, HIVES, 04/26/17) Objective . Vital Signs Date Time Temp Pulse Resp B/P (MAP) Pulse Ox O2 Delivery O2 Flow Rate FiO2 05/06/17 14:00 87 05/06/17 13:00 35 05/06/17 12:00 91 05/06/17 12:00 97.8 91 133/76 (95) 100 05/06/17 12:00 35 05/06/17 11:38 100 35 05/06/17 11:00 83 05/06/17 11:00 83 121/72 (88) 100 05/06/17 10:00 84 118/66 (83) 100 05/06/17 10:00 82 05/06/17 09:00 87 136/83 (100) 100 05/06/17 08:00 80 05/06/17 08:00 40 05/06/17 08:00 35 05/06/17 08:00 97.6 87 127/73 (91) 100 05/06/17 07:56 35 05/06/17 07:56 100 35 05/06/17 07:00 93 127/80 (96) 100 05/06/17 06:00 82 05/06/17 04:00 40 05/06/17 04:00 93 05/06/17 04:00 97.8 93 138/77 (97) 100 05/06/17 03:56 100 40 05/06/17 02:00 85 05/06/17 00:00 97.6 85 129/73 (91) 97 05/06/17 00:00 85 05/06/17 00:00 40 05/05/17 23:48 95 40 05/05/17 22:00 84 05/05/17 22:00 99 40 05/05/17 20:00 100 40 05/05/17 20:00 40 05/05/17 20:00 97.7 87 130/86 (101) 100 05/05/17 20:00 87 05/05/17 18:00 88 05/05/17 16:44 100 40 05/05/17 16:00 40 05/05/17 16:00 79 05/05/17 16:00 97.5 79 14 124/70 (88) 100 05/06/17 05/06/17 05/07/17 15:00 23:00 07:00 Intake Total 300 ml Output Total 0 ml Balance 300 ml IV Total 300 ml Tube Feeding Residual Discard 0 ml . Laboratory Tests Test 05/05/17 03:50 05/06/17 06:05 White Blood Count 36.1 TH/MM3 37.8 TH/MM3 Red Blood Count 3.06 MIL/MM3 3.23 MIL/MM3 Hemoglobin 8.8 GM/DL 9.2 GM/DL Hematocrit 28.5 % 29.3 % Mean Corpuscular Volume 93.1 FL 90.7 FL Mean Corpuscular Hemoglobin 28.7 PG 28.6 PG Mean Corpuscular Hemoglobin Concent 30.8 % 31.5 % Red Cell Distribution Width 14.5 % 14.9 % Platelet Count 61 TH/MM3 88 TH/MM3 Mean Platelet Volume 11.7 FL 11.1 FL Neutrophils (%) (Auto) 87.8 % 86.9 % Lymphocytes (%) (Auto) 3.4 % 3.3 % Monocytes (%) (Auto) 8.1 % 9.4 % Eosinophils (%) (Auto) 0.1 % 0.2 % Basophils (%) (Auto) 0.6 % 0.2 % Neutrophils # (Auto) 31.7 TH/MM3 32.8 TH/MM3 Lymphocytes # (Auto) 1.2 TH/MM3 1.3 TH/MM3 Monocytes # (Auto) 2.9 TH/MM3 3.6 TH/MM3 Eosinophils # (Auto) 0.1 TH/MM3 0.1 TH/MM3 Basophils # (Auto) 0.2 TH/MM3 0.1 TH/MM3 CBC Comment AUTO DIFF AUTO DIFF Differential Total Cells Counted 100 100 Neutrophils % (Manual) 86 % 87 % Band Neutrophils % 3 % 3 % Lymphocytes % 2 % 1 % Monocytes % 6 % 9 % Neutrophils # (Manual) 33.2 TH/MM3 34.0 TH/MM3 Metamyelocytes 3 % Differential Comment FINAL DIFF MANUAL FINAL DIFF MANUAL Toxic Vacuolation PRESENT Platelet Estimate LOW LOW Platelet Morphology Comment ENLARGED ENLARGED Polychromasia 2.4 % Nucleated Red Blood Cells 2 /100 WBC Hypersegmented Polys 1+ Laboratory Tests Test 05/05/17 03:50 05/05/17 16:00 05/06/17 06:05 Blood Urea Nitrogen 45 MG/DL 47 MG/DL Creatinine 1.38 MG/DL 1.18 MG/DL Random Glucose 145 MG/DL 146 MG/DL Total Protein 6.2 GM/DL 5.9 GM/DL Albumin 2.0 GM/DL 2.1 GM/DL Calcium Level 6.9 MG/DL 7.4 MG/DL Phosphorus Level 2.8 MG/DL Magnesium Level 1.5 MG/DL 1.8 MG/DL 1.8 MG/DL Alkaline Phosphatase 239 U/L 220 U/L Aspartate Amino Transf (AST/SGOT) 137 U/L 118 U/L Alanine Aminotransferase (ALT/SGPT) 70 U/L 82 U/L Total Bilirubin 6.1 MG/DL 5.3 MG/DL Sodium Level 146 MEQ/L 146 MEQ/L Potassium Level 2.2 MEQ/L 3.0 MEQ/L 2.5 MEQ/L Chloride Level 109 MEQ/L 110 MEQ/L Carbon Dioxide Level 28.6 MEQ/L 26.3 MEQ/L Anion Gap 8 MEQ/L 10 MEQ/L Estimat Glomerular Filtration Rate 52 ML/MIN 62 ML/MIN Protein Corrected Calcium 7.4 MG/DL 8.1 MG/DL Imaging Last Impressions Chest X-Ray 05/06/17 0600 Signed Impressions: Service Date/Time: April 03:33 - CONCLUSION: Persistent but improving increased interstitial markings likely related to improving edema. Carmine Saucedo MD Abdomen/Pelvis CT 05/04/17 0000 Signed Impressions: Service Date/Time: Thursday, May 04, 2017 16:12 - CONCLUSION: 1. COPD changes with minimal bilateral effusions. 2. Small cirrhotic appearing liver with diffuse fatty infiltration. 3. Diffuse high density ascites throughout the abdomen similar in appearance to previous of 04/27/17. 4. Mild diffuse small bowel thickening with no evidence of obstruction. Andrzej Loaiza MD Brain MRI 05/02/17 0000 Signed Impressions: Service Date/Time: Tuesday, May 02, 2017 13:22 - CONCLUSION: 1. No evidence of acute infarction or acute hemorrhage. 2. Diffuse confluent disseminated white matter signal abnormalities in the supratentorial brain is nonspecific in appearance and could be due to diffuse white matter disease or ischemic process. Cliff Lugo MD Abdomen Ultrasound 04/30/17 0000 Signed Impressions: Service Date/Time: Sunday, April 30, 2017 11:40 - CONCLUSION: Moderate ascites is still present. Jesus Duncna MD Paracentesis 04/27/17 1452 Signed Impressions: Service Date/Time: Thursday, April 27, 2017 15:51 - CONCLUSION: 1. One complicated CT-guided paracentesis. 2. Profound hepatic steatosis. Wallace Cordoba MD Head CT 04/27/17 0000 Signed Impressions: Service Date/Time: Thursday, April 27, 2017 15:44 - CONCLUSION: Diffuse atrophy is present. Areas of encephalomalacia involving the right temporal tip and the left orbitofrontal cortices. No evidence of acute hemorrhage or edema Jesus Duncan MD Physical Exam CONSTITUTIONAL/GENERAL: This is an adequately nourished patient, in no apparent distress. TUBES/LINES/DRAINS: SKIN: No jaundice, rashes, or lesions. Skin temperature appropriate. Not diaphoretic. EYES: Pupils equal and round and reactive. Extraocular motions intact. No scleral icterus. No injection or drainage. Fundi not examined. CARDIOVASCULAR: Regular rate and rhythm without murmurs, gallops, or rubs. No JVD. Peripheral pulses symmetric. RESPIRATORY/CHEST: Symmetric, unlabored respirations. Clear to auscultation. Breath sounds equal bilaterally. GASTROINTESTINAL: Abdomen soft, grimacing to palpation, markedly distended. No hepato-splenomegaly, or palpable masses. No guarding. Bowel sounds present. draining light yellow fluid from previous paracenthesis site GENITOURINARY: Without palpable bladder distension. Castellano catheter in place with allison urine MUSCULOSKELETAL: Extremities without clubbing, cyanosis, or edema. NEUROLOGICAL: more awake, responsive PSYCHIATRIC: unable to assess Assessment & Plan Remarks Sepsis, shock critically ill, stable ARF: resolving UTI, E.coli - ziegler S Ascitis, r/o SBP ? clx negative SBP - improving WBC counts Acute VDRF, PNA vs ARDS (more likely) - improving infiltrates SBP clx negative so far, but cell count cw SBP Leukocytosis , leukemoid reaction: Diarrhea, c.diff negative, bu clinically very suspicious for C.diff - now with documented bowel thickening on CT Pt clinically an d radiologically has c.diff colitis: new bowel wall thickening after abx exposure and sever diarrhea with leukemoid reaction - cont cefepime - dc micafungin - dc azithro cont oral vanco, IV flagyl Eda Hodge MD May 06, 2017 14:30
[2017-05-06] MEDS ORDERED: Vancomycin Consult Pharmacy 1 EA OTHER SCH (15:15)
[2017-05-06] MEDS ORDERED: VANCOMYCIN INJ 1,000 MG in SODIUM CHLOR 0.9% 250 ML INJ 250 ML IV ONE (15:15)
--- NOTE | 2017-05-06 15:33 | PD.PROCEDR ---
Procedure Note Procedure US guided right paracentesis Date: 05/06/17 Indication: Large ascites, sepsis, rule out SBP Informed consent was obtained, a time-out was completed verifying correct patient, procedure, site, positioning, and equipment. The patients RLQ was prepped and draped in a sterile manner after the appropriate infiltration level was confirmed by ultrasound. 1% lidocaine was used anesthetize the surrounding skin. A 10-blade scalpel used to make small incision. The paracentesis Angiocath was then threaded without difficulty. Cloudy yellow ascitic fluid was aspirated and needle was removed. Total 4.5 L cloudy yellow ascitic fluid was removed. The fluid will be sent for several studies. Estimated Blood Loss: negligible The patient tolerated the procedure well and there were no complications. Lynda Lou MD May 06, 2017 15:33
[2017-05-06] MEDS ORDERED: MICAFUNGIN INJ 100 MG in SODIUM CHLORIDE 0.9% INJ 100 ML IV SCH (16:00)
[2017-05-06 17:12] LABS: PERITONEAL HISTIOCYTES 7 %; PERITONEAL LYMPHS 29 %; PERITONEAL MONOS 29 %; PERITONEAL POLYS(SEGS) 36 %
[2017-05-06 17:13] LABS: PERITONEAL WBC 10 /MM3 (0-10)
[2017-05-06] MEDS: VANCOMYCIN INJ 1,250 MG in SODIUM CHLOR 0.9% 250 ML INJ 250 ML IV SCH (18:12)
[2017-05-06 18:13] LABS: HEMATOCRIT 29.4 % (39.0-51.0); MEAN CELL VOLUME 92.6 FL (80.0-100.0); MEAN CORPUSCULAR HGB CONC 31.3 % (32.0-36.0); PLATELET COUNT 102 TH/MM3 (150-450); RED BLOOD COUNT 3.18 MIL/MM3 (4.50-5.90); RED CELL DISTRIBUTION WIDTH 15.1 % (11.6-17.2); WHITE BLOOD COUNT 38.6 TH/MM3 (4.0-11.0)
[2017-05-06 18:19] LABS: REVIEW FLAG FINAL
[2017-05-06 18:26] LABS: INTERNATIONAL NORMALIZED RATIO 1.4 RATIO; PROTHROMBIN TIME - PATIENT 14.1 SEC (9.8-11.6)
[2017-05-07] VITALS (18 sets, daily range): BP systolic 93–120; BP diastolic 53–64; PULSE 86–94; RESP 18; TEMP 97.9–98.6; O2SAT 92–99
[2017-05-07] MEDS: FAMOTIDINE 20 MG/2 ML VIAL IV PUSH SCH ×2 (02:21→13:31)
[2017-05-07] MEDS: metroNIDAZOLE 500 MG INJ 100 ML IV SCH ×3 (02:22→16:18)
[2017-05-07] MEDS: CEFEPIME INJ 2,000 MG in SODIUM CHLORIDE 0.9% INJ 100 ML IV SCH ×2 (02:23→15:23)
[2017-05-07] MEDS: FREE WATER G-TUBE SCH ×3 (02:23→15:17)
[2017-05-07] MEDS: INSULIN NovoLIN REGULAR SUPPLEMENTAL SCALE SQ SCH ×6 (04:00→22:00)
[2017-05-07] MEDS: OCTREOTIDE INJ 50 MCG/ML AMP IV PUSH SCH ×3 (06:00→22:00)
[2017-05-07] MEDS: VANCOMYCIN 500 MG VIAL (FOR ORAL USE ONLY) PO SCH ×4 (06:00→18:13)
[2017-05-07 06:06] LABS: HEMATOCRIT 32.9 % (39.0-51.0); MEAN CELL VOLUME 93.5 FL (80.0-100.0); MEAN CORPUSCULAR HEMOGLOBIN 28.8 PG (27.0-34.0); MEAN CORPUSCULAR HGB CONC 30.9 % (32.0-36.0); PLATELET COUNT 121 TH/MM3 (150-450); RED BLOOD COUNT 3.51 MIL/MM3 (4.50-5.90); WHITE BLOOD COUNT 39.2 TH/MM3 (4.0-11.0)
[2017-05-07 06:08] LABS: HEMO FLAGS AUTO DIFF
[2017-05-07] MEDS: ALBUMIN 25% INJ 50 ML IV SCH ×2 (06:20→18:14)
[2017-05-07 06:22] LABS: ALKALINE PHOSPHATASE 197 U/L (45-117); ALT (GPT) 75 U/L (12-78); ANION GAP 9 MEQ/L (5-15); AST (GOT) 117 U/L (15-37); BICARBONATE 23.2 MEQ/L (21.0-32.0); BLOOD UREA NITROGEN 46 MG/DL (7-18); CHLORIDE 115 MEQ/L (98-107); GLOMERULAR FILTRATION RATE 65 ML/MIN (>89); MAGNESIUM 1.9 MG/DL (1.5-2.5); POTASSIUM 4.1 MEQ/L (3.5-5.1); SODIUM (NA) 147 MEQ/L (136-145); TOTAL BILIRUBIN ADULT 5.4 MG/DL (0.2-1.0)
[2017-05-07 08:00] LABS: NEUTROPHIL # MANUAL DIFF 36.1 TH/MM3 (1.8-7.7); POLYS (SEG NEUTROPHILS) 92 % (16-70); WBC DIFF SAMPLE 100
[2017-05-07 08:01] LABS: PLATELET ESTIMATE SMEAR LOW (NORMAL); PLATELET MORPHOLOGY ENLARGED (NORMAL)
[2017-05-07 08:02] LABS: HOWELL-JOLLY BODIES PRESENT (NONE SEEN); POLYCHROMASIA 2.6 % (0.0-1.9)
[2017-05-07 08:03] LABS: SCAN/DIFF FINAL DIFF MANUAL
[2017-05-07] MEDS: HYDROCORTISONE SOD SUCCINATE 100 MG VIAL IV PUSH SCH ×2 (08:18→20:30)
[2017-05-07] MEDS: SODIUM CHLORIDE 0.9% FLUSH 10 ML FLUSH IV FLUSH SCH ×2 (08:19→20:29)
[2017-05-07] MEDS: FOLIC ACID 1 MG TAB PO SCH (08:19)
[2017-05-07] MEDS: CALCIUM CARBONATE 1.25 GM (CA 500 MG) TAB PO SCH ×2 (08:20→20:30)
[2017-05-07] MEDS: MULTIVITAMIN TAB PO SCH (08:20)
[2017-05-07] MEDS: DOCUSATE SODIUM 50 MG/SENNA 8.6 MG TAB PO SCH ×2 (08:20→20:30)
[2017-05-07] MEDS: THIAMINE HCL 100 MG TAB PO SCH (08:21)
[2017-05-07] MEDS: VANCOMYCIN INJ 1,250 MG in SODIUM CHLOR 0.9% 250 ML INJ 250 ML IV SCH (11:59)
[2017-05-07] MEDS ORDERED: FAMOTIDINE 20 MG/2 ML VIAL IV PUSH SCH (14:00)
--- NOTE | 2017-05-07 14:27 | HHI.IDPN ---
Subjective Subjective Remarks BMx 2 m very mucosy Pt was started on broad spectrum abx, antifungals over concerns for SBP - he had quite cloudy fluid yday Though fluid cell count and diff were unremarkable for ifx, Gstain neg and clx is NG @ 1 day Pt is extubated and overall doing OK, but his WBC went up to 39K Antibiotics cefepime vancomycin Allergies: Coded Allergies: codeine (Unverified Allergy, Severe, N/V, 04/26/17) propoxyphene (Unverified Allergy, Severe, HIVES, 04/26/17) Objective . Vital Signs Date Time Temp Pulse Resp B/P (MAP) Pulse Ox O2 Delivery O2 Flow Rate FiO2 05/07/17 14:00 92 05/07/17 12:00 91 05/07/17 12:00 98.6 91 106/59 (75) 99 05/07/17 11:00 86 100/56 (71) 97 05/07/17 10:00 88 96/53 (67) 95 05/07/17 10:00 88 05/07/17 09:00 89 98/54 (69) 96 05/07/17 08:00 89 05/07/17 08:00 97.9 89 93/55 (68) 92 05/07/17 07:00 93 Nasal Cannula 3.00 05/07/17 06:00 91 05/07/17 04:00 98.0 92 104/55 (71) 94 05/07/17 04:00 92 05/07/17 02:00 89 05/07/17 00:00 98.1 90 102/64 (77) 94 05/07/17 00:00 90 05/06/17 22:00 89 05/06/17 20:00 97.7 90 111/55 (73) 93 05/06/17 20:00 90 05/06/17 19:56 93 21 05/06/17 19:00 94 Nasal Cannula 3.00 05/06/17 18:00 90 05/06/17 17:00 87 106/69 (81) 99 05/06/17 16:00 86 05/06/17 16:00 98 Nasal Cannula 3.00 05/06/17 16:00 98.3 86 109/62 (78) 98 05/06/17 15:35 100 Nasal Cannula 3 05/06/17 15:35 100 Nasal Cannula 3.00 05/06/17 15:00 87 115/66 (82) 100 05/07/17 05/07/17 05/08/17 15:00 23:00 07:00 Intake Total 100 ml Balance 100 ml IV Total 100 ml . Laboratory Tests Test 05/06/17 06:05 05/06/17 16:00 05/07/17 05:14 White Blood Count 37.8 TH/MM3 38.6 TH/MM3 39.2 TH/MM3 Red Blood Count 3.23 MIL/MM3 3.18 MIL/MM3 3.51 MIL/MM3 Hemoglobin 9.2 GM/DL 9.2 GM/DL 10.1 GM/DL Hematocrit 29.3 % 29.4 % 32.9 % Mean Corpuscular Volume 90.7 FL 92.6 FL 93.5 FL Mean Corpuscular Hemoglobin 28.6 PG 29.0 PG 28.8 PG Mean Corpuscular Hemoglobin Concent 31.5 % 31.3 % 30.9 % Red Cell Distribution Width 14.9 % 15.1 % 16.0 % Platelet Count 88 TH/MM3 102 TH/MM3 121 TH/MM3 Mean Platelet Volume 11.1 FL 11.1 FL 10.1 FL Neutrophils (%) (Auto) 86.9 % Lymphocytes (%) (Auto) 3.3 % Monocytes (%) (Auto) 9.4 % Eosinophils (%) (Auto) 0.2 % Basophils (%) (Auto) 0.2 % Neutrophils # (Auto) 32.8 TH/MM3 Lymphocytes # (Auto) 1.3 TH/MM3 Monocytes # (Auto) 3.6 TH/MM3 Eosinophils # (Auto) 0.1 TH/MM3 Basophils # (Auto) 0.1 TH/MM3 CBC Comment AUTO DIFF AUTO DIFF Differential Total Cells Counted 100 100 Neutrophils % (Manual) 87 % 92 % Band Neutrophils % 3 % Lymphocytes % 1 % 2 % Monocytes % 9 % 6 % Neutrophils # (Manual) 34.0 TH/MM3 36.1 TH/MM3 Nucleated Red Blood Cells 2 /100 WBC Differential Comment FINAL DIFF MANUAL FINAL DIFF MANUAL Hypersegmented Polys 1+ Platelet Estimate LOW LOW Platelet Morphology Comment ENLARGED ENLARGED Polychromasia 2.6 % Thomson-Brushton Bodies PRESENT Laboratory Tests Test 05/05/17 16:00 05/06/17 06:05 05/06/17 13:50 05/06/17 19:15 Potassium Level 3.0 MEQ/L 2.5 MEQ/L 4.8 MEQ/L Magnesium Level 1.8 MG/DL 1.8 MG/DL Blood Urea Nitrogen 47 MG/DL Creatinine 1.18 MG/DL Random Glucose 146 MG/DL Total Protein 5.9 GM/DL 5.8 GM/DL Albumin 2.1 GM/DL Calcium Level 7.4 MG/DL Alkaline Phosphatase 220 U/L Aspartate Amino Transf (AST/SGOT) 118 U/L Alanine Aminotransferase (ALT/SGPT) 82 U/L Total Bilirubin 5.3 MG/DL Sodium Level 146 MEQ/L Chloride Level 110 MEQ/L Carbon Dioxide Level 26.3 MEQ/L Anion Gap 10 MEQ/L Estimat Glomerular Filtration Rate 62 ML/MIN Protein Corrected Calcium 8.1 MG/DL Lactate Dehydrogenase 275 U/L Test 05/07/17 05:14 Blood Urea Nitrogen 46 MG/DL Creatinine 1.14 MG/DL Random Glucose 116 MG/DL Total Protein 6.1 GM/DL Albumin 2.0 GM/DL Calcium Level 7.8 MG/DL Magnesium Level 1.9 MG/DL Alkaline Phosphatase 197 U/L Aspartate Amino Transf (AST/SGOT) 117 U/L Alanine Aminotransferase (ALT/SGPT) 75 U/L Total Bilirubin 5.4 MG/DL Sodium Level 147 MEQ/L Potassium Level 4.1 MEQ/L Chloride Level 115 MEQ/L Carbon Dioxide Level 23.2 MEQ/L Anion Gap 9 MEQ/L Estimat Glomerular Filtration Rate 65 ML/MIN Microbiology Date/Time Source Procedure Growth Status 05/06/17 14:55 Fluid Peritoneal Fluid Gram Stain - Final Resulted 05/06/17 14:55 Fluid Peritoneal Fluid Body Fluid Culture - Preliminary NO GROWTH IN 24 HOURS. Resulted Imaging Last Impressions Chest X-Ray 05/06/17 0600 Signed Impressions: Service Date/Time: April 03:33 - CONCLUSION: Persistent but improving increased interstitial markings likely related to improving edema. Carmine Saucedo MD Abdomen/Pelvis CT 05/04/17 0000 Signed Impressions: Service Date/Time: Thursday, May 04, 2017 16:12 - CONCLUSION: 1. COPD changes with minimal bilateral effusions. 2. Small cirrhotic appearing liver with diffuse fatty infiltration. 3. Diffuse high density ascites throughout the abdomen similar in appearance to previous of 04/27/17. 4. Mild diffuse small bowel thickening with no evidence of obstruction. Andrzej Loaiza MD Brain MRI 05/02/17 0000 Signed Impressions: Service Date/Time: Tuesday, May 02, 2017 13:22 - CONCLUSION: 1. No evidence of acute infarction or acute hemorrhage. 2. Diffuse confluent disseminated white matter signal abnormalities in the supratentorial brain is nonspecific in appearance and could be due to diffuse white matter disease or ischemic process. Cliff Lugo MD Abdomen Ultrasound 04/30/17 0000 Signed Impressions: Service Date/Time: Sunday, April 30, 2017 11:40 - CONCLUSION: Moderate ascites is still present. Jesus Duncan MD Paracentesis 04/27/17 1452 Signed Impressions: Service Date/Time: Thursday, April 27, 2017 15:51 - CONCLUSION: 1. One complicated CT-guided paracentesis. 2. Profound hepatic steatosis. Wallace Cordoba MD Head CT 04/27/17 0000 Signed Impressions: Service Date/Time: Thursday, April 27, 2017 15:44 - CONCLUSION: Diffuse atrophy is present. Areas of encephalomalacia involving the right temporal tip and the left orbitofrontal cortices. No evidence of acute hemorrhage or edema Jesus Duncan MD Physical Exam CONSTITUTIONAL/GENERAL: This is an adequately nourished patient, in no apparent distress. TUBES/LINES/DRAINS: SKIN: No jaundice, rashes, or lesions. Skin temperature appropriate. Not diaphoretic. EYES: Pupils equal and round and reactive. Extraocular motions intact. No scleral icterus. No injection or drainage. Fundi not examined. CARDIOVASCULAR: Regular rate and rhythm without murmurs, gallops, or rubs. No JVD. Peripheral pulses symmetric. RESPIRATORY/CHEST: Symmetric, unlabored respirations. Clear to auscultation. Breath sounds equal bilaterally. GASTROINTESTINAL: Abdomen soft, grimacing to palpation, markedly distended. No hepato-splenomegaly, or palpable masses. No guarding. Bowel sounds present. draining fairly clear light yellow fluid from previous paracenthesis site now GENITOURINARY: Without palpable bladder distension. Castellano catheter in place with allison urine MUSCULOSKELETAL: Extremities without clubbing, cyanosis, or edema. NEUROLOGICAL: more awake, responsive PSYCHIATRIC: unable to assess Assessment & Plan Remarks Sepsis, shock: clinically resolved critically ill, stable ARF: resolving UTI, E.coli - ziegler S Ascitis, r/o SBP ? clx negative SBP - improving WBC counts Acute VDRF, PNA vs ARDS (more likely) - improving infiltrates SBP clx negative so far, but cell count cw SBP Leukocytosis , leukemoid reaction: Diarrhea, c.diff negative, bu clinically very suspicious for C.diff - now with documented bowel thickening on CT Pt clinically an d radiologically has c.diff colitis: new bowel wall thickening after abx exposure and sever diarrhea with leukemoid reaction - cont cefepime - dc micafungin - dc iv vancomycin cont oral vanco, IV flagyl Eda Hodge MD May 07, 2017 14:27
--- NOTE | 2017-05-07 18:53 | HHI.CCPN ---
Subjective Remarks/Hospital Course Patient is a 61-year-old male with past medical history of EtOH abuse, chronic obstructive pulmonary disease, seizure disorder, cerebrovascular accident, who presented to [facility] emergency department earlier this morning via EMS, under supposedly a Dwyer acted. The patient told the power sweeper operator of the Hotel where he is staying that he wants to commit suicide. The police were called and the patient was brought in to the hospital. On arrival to the emergency department he was found to have leukocytosis with a WBC of 21.6 and was in renal failure with creatinine of 2.51. The patient also had mild lactic acidemia with elevated lactic acid level 2.4 and elevated AST: 121 with total bilirubin 2.9. He had an ABG done this morning on 4 liters oxygen was which showed a pH of 7.34, CO2 28 and pAO2 135, bicarb 15, saturation 96%. Chest x-ray In the ER showed mild interstitial past is in the upper left lung. He also had CT abdomen and pelvis done which showed severe ascites along with steatosis of the liver and right inguinal hernia. [facility] was [facility] to [facility]. Critical care medicine was consulted for critical care management. When seen in ICU the patient was lethargic, unresponsive. He was subsequently intubated and placed on mechanical ventilation for airway protection. In the ICU the patient was hypotensive with systolic blood pressure in the 90s, A right IJ emergent central line was placed. 04/28 Patient is intubated off sedation started on Levophed yesterday 12 mics. s /p CT guided paracentesis with removal 4L. 04/29 Patient remains intubated and sedated with Fentanyl drip. Levophed down 7 mics, vasopressin added yesterday. Afebrile. On Bicarb drip. 04/30 Patient remains sedated with Fentanyl and intubated. Required increase FIO2/PEEP overnight given additional Bumex 2mg IV x1. CXR yesterday showed diffuse b/l pulm infiltrates. Levophed down to 5 mics, off Vasopressin. 05/01 Patient remains intubated off sedation Levophed down 3 mics. s/p paracentesis at bedside yesterday with removal 4L. Afebrile. Renal function worse today with Cr: 2.40 from 2.09. 05/02 No events overnight. Sedated with fentanyl and intubated, On Levophed 2mics. Tolerated CPAP for several hrs.. Cr: 2.28 from 2.4 05/03 Patient remains intubated, on no sedation unresponsive. MRI brain yesterday showed no evidence of hemorrhage/infarction. 05/04 No events overnight. Remains obtunded/unresponsive. Tmax 100.0 05/05: No acute events overnight, remains critically ill. WBC count 36.1. Ct abd shows ascites, C diff negative x2. Opens eyes, not following 05/06: Significant improvement in mentation today, WBC is elevated at 37.8 but patient is following commands. Drained tense ascites -appears cloud indicating bacterial peritonitis. K remains low at 2.5, getting IV and PO replacement Subjective 05/07: Seen and examined. Some draining from prior paracentesis site noted in collection bag. Resting comfortably in bed on nasal cannula. Tolerating pur ed honey thickened liquid diet. Positive BM. Objective Vital Signs Date Time Temp Pulse Resp B/P (MAP) Pulse Ox O2 Delivery O2 Flow Rate FiO2 05/07/17 18:00 92 05/07/17 17:00 108/63 (78) 94 05/07/17 16:00 98.4 05/07/17 07:00 Nasal Cannula 3.00 05/06/17 19:56 21 05/05/17 16:00 14 Intake and Output 05/07/17 05/07/17 05/08/17 08:00 16:00 00:00 Intake Total 250 ml 360 ml 290 ml Output Total 805 ml 475 ml Balance -555 ml 360 ml -185 ml Result Diagram: 05/07/17 0514 05/07/17 0514 Other Results Microbiology Date/Time Source Procedure Growth Status 05/03/17 10:10 Blood Peripheral Aerobic Blood Culture - Preliminary NO GROWTH IN 4 DAYS Resulted 05/03/17 10:10 Blood Peripheral Anaerobic Blood Culture - Preliminary NO GROWTH IN 4 DAYS Resulted 05/06/17 14:55 Fluid Peritoneal Fluid Gram Stain - Final Resulted 05/06/17 14:55 Fluid Peritoneal Fluid Body Fluid Culture - Preliminary NO GROWTH IN 24 HOURS. Resulted 05/02/17 08:10 Sputum Endotracheal Gram Stain - Final Complete 05/02/17 08:10 Sputum Endotracheal Sputum Culture - Final HEAVY GROWTH NORMAL RESPIRATORY JAMES Complete 04/26/17 20:10 Urine Random Urine Urine Culture - Final Escherichia Coli Complete Imaging Last Impressions Chest X-Ray 05/06/17 0600 Signed Impressions: Service Date/Time: April 03:33 - CONCLUSION: Persistent but improving increased interstitial markings likely related to improving edema. Carmine Saucedo MD Abdomen/Pelvis CT 05/04/17 0000 Signed Impressions: Service Date/Time: Thursday, May 04, 2017 16:12 - CONCLUSION: 1. COPD changes with minimal bilateral effusions. 2. Small cirrhotic appearing liver with diffuse fatty infiltration. 3. Diffuse high density ascites throughout the abdomen similar in appearance to previous of 04/27/17. 4. Mild diffuse small bowel thickening with no evidence of obstruction. Andrzej Loaiza MD Brain MRI 05/02/17 0000 Signed Impressions: Service Date/Time: Tuesday, May 02, 2017 13:22 - CONCLUSION: 1. No evidence of acute infarction or acute hemorrhage. 2. Diffuse confluent disseminated white matter signal abnormalities in the supratentorial brain is nonspecific in appearance and could be due to diffuse white matter disease or ischemic process. Cliff Lugo MD Abdomen Ultrasound 04/30/17 0000 Signed Impressions: Service Date/Time: Sunday, April 30, 2017 11:40 - CONCLUSION: Moderate ascites is still present. Jesus Duncan MD Paracentesis 04/27/17 1452 Signed Impressions: Service Date/Time: Thursday, April 27, 2017 15:51 - CONCLUSION: 1. One complicated CT-guided paracentesis. 2. Profound hepatic steatosis. Wallace Cordoba MD Head CT 04/27/17 0000 Signed Impressions: Service Date/Time: Thursday, April 27, 2017 15:44 - CONCLUSION: Diffuse atrophy is present. Areas of encephalomalacia involving the right temporal tip and the left orbitofrontal cortices. No evidence of acute hemorrhage or edema Jesus Duncan MD Objective Remarks GENERAL: 61-year-old male, resting in bed in no acute distress SKIN: Warm and dry. Tattoos left upper extremity HEAD: Normocephalic. EYES: No scleral icterus. No injection or drainage. NECK: Supple, trachea midline. No JVD or lymphadenopathy. Very poor dentition CARDIOVASCULAR: Regular rate and rhythm S1, S2. No S4 without murmur. RESPIRATORY: Breath sounds equal bilaterally. No accessory muscle use. GASTROINTESTINAL: Slightly distended. Reducible. Hypoactive bowel sounds are appreciated. MUSCULOSKELETAL: No significant peripheral edema. Neuro: Cranial nerves II through XII grossly intact. Strength is equal symmetric. Normal sensation. 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 Decker MRI brain 05/02: No evidence of infarction or hemorrhage Repeat EEG 05/02: Severe encephalopathy 04/27: EEG Mild- mod slowing. No epileptiform features. 04/27: CT brain: No acute findings Currently on lactulose and Xifaxan On Thiamine, MVI, folic acid Pulm: COPD Nasal cannula to maintain saturations greater than equal to 92% Incentive spirometry while awake As needed bronchodilator therapy CV: Will receive one quarter normal saline bolus overnight. Not requiring vasopressors and/or anti-hypertensives Weaning stress dose steroids Hydrocortisone- HC 25mg IV Q12 /renal/FEN: Hypernatremia Monitor renal function Is and Os, electrolytes replacement per protocol Renal function is improving with Cr: normalizing UOP adequate Renal- Dr. Lane. Aggressive K replacement CT scan of the abdomen and pelvis 05/04 showed no evidence of hydronephrosis, masses or stones. GI: History of hepatitis C Hepatic steatosis Currently on regular diet./Honey thickened liquids Pantoprazole for GI prophylaxis Currently on Sandostatin 50 mcg every 8 hours Monitor LFT's, s/p CT guided paracentesis with removal 4 on 04/27 and repeat Paracentesis at bedside on 04/30 with 4L removal. Repeat large vol paracentesis 05/05 shows cloudy ascites fluid indicating SBP CT abd/pelvis 05/04: Ascites , steatosis of liver. ID: SBP (spontaneous bacterial peritonitis) Escherichia coli UTI Severe sepsis Continue with abx per ID ( Cefepime, oral vanco, IV flagyl) BC 05/03: NGTD, 05/02 sputum: normal resp james Urine culture: E.coli. C-diff 05/01, 05/04 negative Heme: Leukocytosis Normocytic anemia Monitor CBC Endo: SSI if needed for glucemic control Lines: Right IJ central line placed 04/27. Discontinue 05/06. PIV GI prophylaxis with Protonix and DVT prophylaxis with SCDs. Level 2 Patient is stable from a critical care medicine standpoint. Assign care to hospitalist in a.m. 05/08. Okay to transfer from ICU Steven Coello MD May 07, 2017 18:53
[2017-05-07] MEDS ORDERED: SODIUM CHLORIDE 23.4% INJ 38.5 MEQ in WATER STERILE FOR INJ 1,000 ML IV SCH (19:00)
[2017-05-08] VITALS (7 sets, daily range): BP systolic 112–147; BP diastolic 65–70; PULSE 89–97; RESP 17–20; TEMP 95.6–98.1; O2SAT 79–96
[2017-05-08] MEDS: VANCOMYCIN 500 MG VIAL (FOR ORAL USE ONLY) PO SCH ×4 (00:42→16:21)
[2017-05-08] MEDS: metroNIDAZOLE 500 MG INJ 100 ML IV SCH ×4 (00:43→22:56)
[2017-05-08 04:25] LABS: AUTOMATED NEUTROPHIL # 33.7 TH/MM3 (1.8-7.7); BASOPHIL # 0.1 TH/MM3 (0-0.2); BASOPHIL % 0.4 % (0.0-2.0); EOSINOPHIL # 0.2 TH/MM3 (0-0.4); EOSINOPHIL % 0.5 % (0.0-4.0); HEMATOCRIT 31.8 % (39.0-51.0); LYMPH % 4.2 % (9.0-44.0); LYMPHOCYTE # 1.6 TH/MM3 (1.0-4.8); MEAN CELL VOLUME 93.5 FL (80.0-100.0); MEAN CORPUSCULAR HEMOGLOBIN 28.9 PG (27.0-34.0); MONO % 6.9 % (0.0-8.0); PLATELET COUNT 119 TH/MM3 (150-450); WHITE BLOOD COUNT 38.3 TH/MM3 (4.0-11.0)
[2017-05-08 04:30] LABS: HEMO FLAGS AUTO DIFF
[2017-05-08 04:54] LABS: ALT (GPT) 74 U/L (12-78)
[2017-05-08 04:56] LABS: ALKALINE PHOSPHATASE 200 U/L (45-117); TOTAL BILIRUBIN ADULT 6.4 MG/DL (0.2-1.0)
[2017-05-08] MEDS: OCTREOTIDE INJ 50 MCG/ML AMP IV PUSH SCH ×2 (04:56→14:22)
[2017-05-08] MEDS: CEFEPIME INJ 2,000 MG in SODIUM CHLORIDE 0.9% INJ 100 ML IV SCH ×2 (04:57→17:27)
[2017-05-08 04:59] LABS: ANION GAP 8 MEQ/L (5-15); AST (GOT) 107 U/L (15-37); BICARBONATE 24.1 MEQ/L (21.0-32.0); BLOOD UREA NITROGEN 42 MG/DL (7-18); CHLORIDE 116 MEQ/L (98-107); GLOMERULAR FILTRATION RATE 53 ML/MIN (>89); MAGNESIUM 1.7 MG/DL (1.5-2.5); POTASSIUM 3.9 MEQ/L (3.5-5.1); SODIUM (NA) 148 MEQ/L (136-145)
[2017-05-08 06:36] LABS: MYELOCYTES 1 % (0-0); NEUTROPHIL # MANUAL DIFF 35.6 TH/MM3 (1.8-7.7); POLYS (SEG NEUTROPHILS) 92 % (16-70); WBC DIFF SAMPLE 100
[2017-05-08 06:37] LABS: PLATELET ESTIMATE SMEAR LOW (NORMAL); PLATELET MORPHOLOGY NORMAL (NORMAL); SCAN/DIFF FINAL DIFF MANUAL
[2017-05-08] MEDS: INSULIN NovoLIN REGULAR SUPPLEMENTAL SCALE SQ SCH ×4 (08:00→21:00)
[2017-05-08] MEDS: THIAMINE HCL 100 MG TAB PO SCH (09:03)
[2017-05-08] MEDS: MULTIVITAMIN TAB PO SCH (09:03)
[2017-05-08] MEDS: PANTOPRAZOLE SOD 40 MG DELAYED RELEASE TAB PO SCH (09:03)
[2017-05-08] MEDS: CALCIUM CARBONATE 1.25 GM (CA 500 MG) TAB PO SCH ×2 (09:03→22:56)
[2017-05-08] MEDS: HYDROCORTISONE SOD SUCCINATE 100 MG VIAL IV PUSH SCH ×2 (09:03→22:56)
[2017-05-08] MEDS: FOLIC ACID 1 MG TAB PO SCH (09:04)
[2017-05-08] MEDS: DOCUSATE SODIUM 50 MG/SENNA 8.6 MG TAB PO SCH (09:04)
[2017-05-08] MEDS: SODIUM CHLORIDE 0.9% FLUSH 10 ML FLUSH IV FLUSH SCH ×2 (09:04→22:56)
--- NOTE | 2017-05-08 13:29 | HHI.IDPN ---
Subjective Subjective Remarks pt is confused and agitated today, non cooperative afebrile on 2 L NC O2 Ascitic fluid clx is negative Antibiotics cefepime vanco po flagyl Allergies: Coded Allergies: codeine (Unverified Allergy, Severe, N/V, 04/26/17) propoxyphene (Unverified Allergy, Severe, HIVES, 04/26/17) Objective . Vital Signs Date Time Temp Pulse Resp B/P (MAP) Pulse Ox O2 Delivery O2 Flow Rate FiO2 05/08/17 12:00 96.0 95 18 112/66 (81) 95 05/08/17 10:03 Nasal Cannula 2.00 05/08/17 06:00 97 05/08/17 04:00 92 05/08/17 04:00 98.0 92 17 147/68 (94) 79 05/08/17 02:00 90 05/08/17 00:00 89 05/08/17 00:00 98.1 89 20 130/67 (88) 95 05/07/17 22:00 92 05/07/17 20:47 95 21 05/07/17 20:00 94 05/07/17 20:00 98.3 94 18 116/56 (76) 94 05/07/17 19:00 93 Nasal Cannula 3.00 05/07/17 18:00 92 05/07/17 17:00 94 108/63 (78) 94 05/07/17 16:00 98.4 93 104/56 (72) 95 05/07/17 16:00 93 05/07/17 15:00 94 120/60 (80) 95 05/07/17 14:00 92 105/64 (78) 92 05/07/17 14:00 92 . Laboratory Tests Test 05/06/17 16:00 05/07/17 05:14 05/08/17 04:10 White Blood Count 38.6 TH/MM3 39.2 TH/MM3 38.3 TH/MM3 Red Blood Count 3.18 MIL/MM3 3.51 MIL/MM3 3.40 MIL/MM3 Hemoglobin 9.2 GM/DL 10.1 GM/DL 9.8 GM/DL Hematocrit 29.4 % 32.9 % 31.8 % Mean Corpuscular Volume 92.6 FL 93.5 FL 93.5 FL Mean Corpuscular Hemoglobin 29.0 PG 28.8 PG 28.9 PG Mean Corpuscular Hemoglobin Concent 31.3 % 30.9 % 31.0 % Red Cell Distribution Width 15.1 % 16.0 % 17.0 % Platelet Count 102 TH/MM3 121 TH/MM3 119 TH/MM3 Mean Platelet Volume 11.1 FL 10.1 FL 11.1 FL CBC Comment AUTO DIFF AUTO DIFF Differential Total Cells Counted 100 100 Neutrophils % (Manual) 92 % 92 % Lymphocytes % 2 % 1 % Monocytes % 6 % 6 % Neutrophils # (Manual) 36.1 TH/MM3 35.6 TH/MM3 Differential Comment FINAL DIFF MANUAL FINAL DIFF MANUAL Platelet Estimate LOW LOW Platelet Morphology Comment ENLARGED NORMAL Polychromasia 2.6 % Thomson-Trinity Bodies PRESENT Neutrophils (%) (Auto) 88.0 % Lymphocytes (%) (Auto) 4.2 % Monocytes (%) (Auto) 6.9 % Eosinophils (%) (Auto) 0.5 % Basophils (%) (Auto) 0.4 % Neutrophils # (Auto) 33.7 TH/MM3 Lymphocytes # (Auto) 1.6 TH/MM3 Monocytes # (Auto) 2.7 TH/MM3 Eosinophils # (Auto) 0.2 TH/MM3 Basophils # (Auto) 0.1 TH/MM3 Myelocytes 1 % Red Cell Morphology Comment NORMAL Laboratory Tests Test 05/06/17 13:50 05/06/17 19:15 05/07/17 05:14 05/08/17 04:10 Potassium Level 4.8 MEQ/L 4.1 MEQ/L 3.9 MEQ/L Lactate Dehydrogenase 275 U/L Total Protein 5.8 GM/DL 6.1 GM/DL 6.4 GM/DL Blood Urea Nitrogen 46 MG/DL 42 MG/DL Creatinine 1.14 MG/DL 1.36 MG/DL Random Glucose 116 MG/DL 126 MG/DL Albumin 2.0 GM/DL 2.3 GM/DL Calcium Level 7.8 MG/DL 7.9 MG/DL Magnesium Level 1.9 MG/DL 1.7 MG/DL Alkaline Phosphatase 197 U/L 200 U/L Aspartate Amino Transf (AST/SGOT) 117 U/L 107 U/L Alanine Aminotransferase (ALT/SGPT) 75 U/L 74 U/L Total Bilirubin 5.4 MG/DL 6.4 MG/DL Sodium Level 147 MEQ/L 148 MEQ/L Chloride Level 115 MEQ/L 116 MEQ/L Carbon Dioxide Level 23.2 MEQ/L 24.1 MEQ/L Anion Gap 9 MEQ/L 8 MEQ/L Estimat Glomerular Filtration Rate 65 ML/MIN 53 ML/MIN Phosphorus Level 2.2 MG/DL Ammonia LESS THAN 10 MCMOL/L Microbiology Date/Time Source Procedure Growth Status 05/06/17 14:55 Fluid Peritoneal Fluid Gram Stain - Final Resulted 05/06/17 14:55 Fluid Peritoneal Fluid Body Fluid Culture - Preliminary NO GROWTH IN 48 HOURS. Resulted Imaging Last Impressions Chest X-Ray 05/06/17 0600 Signed Impressions: Service Date/Time: April 03:33 - CONCLUSION: Persistent but improving increased interstitial markings likely related to improving edema. Carmine Saucedo MD Abdomen/Pelvis CT 05/04/17 0000 Signed Impressions: Service Date/Time: Thursday, May 04, 2017 16:12 - CONCLUSION: 1. COPD changes with minimal bilateral effusions. 2. Small cirrhotic appearing liver with diffuse fatty infiltration. 3. Diffuse high density ascites throughout the abdomen similar in appearance to previous of 04/27/17. 4. Mild diffuse small bowel thickening with no evidence of obstruction. Andrzej Loaiza MD Brain MRI 05/02/17 0000 Signed Impressions: Service Date/Time: Tuesday, May 02, 2017 13:22 - CONCLUSION: 1. No evidence of acute infarction or acute hemorrhage. 2. Diffuse confluent disseminated white matter signal abnormalities in the supratentorial brain is nonspecific in appearance and could be due to diffuse white matter disease or ischemic process. Cliff Lugo MD Abdomen Ultrasound 04/30/17 0000 Signed Impressions: Service Date/Time: Sunday, April 30, 2017 11:40 - CONCLUSION: Moderate ascites is still present. Jesus Duncan MD Paracentesis 04/27/17 1452 Signed Impressions: Service Date/Time: Thursday, April 27, 2017 15:51 - CONCLUSION: 1. One complicated CT-guided paracentesis. 2. Profound hepatic steatosis. Wallace Cordoba MD Head CT 04/27/17 0000 Signed Impressions: Service Date/Time: Thursday, April 27, 2017 15:44 - CONCLUSION: Diffuse atrophy is present. Areas of encephalomalacia involving the right temporal tip and the left orbitofrontal cortices. No evidence of acute hemorrhage or edema Jesus Duncan MD Physical Exam CONSTITUTIONAL/GENERAL: This is an adequately nourished patient, in no apparent distress. TUBES/LINES/DRAINS: SKIN: No jaundice, rashes, or lesions. Skin temperature appropriate. Not diaphoretic. EYES: Pupils equal and round and reactive. Extraocular motions intact. No scleral icterus. No injection or drainage. Fundi not examined. CARDIOVASCULAR: Regular rate and rhythm without murmurs, gallops, or rubs. No JVD. Peripheral pulses symmetric. RESPIRATORY/CHEST: Symmetric, unlabored respirations. Clear to auscultation. Breath sounds equal bilaterally. GASTROINTESTINAL: Abdomen soft, grimacing to palpation, markedly distended. No hepato-splenomegaly, or palpable masses. No guarding. Bowel sounds present. draining fairly clear light yellow fluid from previous paracenthesis site LLQ GENITOURINARY: Without palpable bladder distension. Castellano catheter in place with allison urine MUSCULOSKELETAL: Extremities without clubbing, cyanosis, or edema. NEUROLOGICAL: lethargic and confused PSYCHIATRIC: agitated non cooperative Assessment & Plan Remarks Sepsis, shock: clinically resolved critically ill, stable ARF: resolving UTI, E.coli - ziegler S Ascitis, r/o SBP ? clx negative SBP - improving WBC counts Acute VDRF, PNA vs ARDS (more likely) - improving infiltrates SBP clx negative so far, but cell count cw SBP Leukocytosis , leukemoid reaction: slightly better WBC Diarrhea, c.diff negative, bu clinically very suspicious for C.diff - now with documented bowel thickening on CT Pt clinically an d radiologically has c.diff colitis: new bowel wall thickening after abx exposure and sever diarrhea with leukemoid reaction - will dc cefepime (sp 2wks of abx) - cont oral vanco, IV flagyl consult GI dw RN Eda Hodge MD May 08, 2017 13:29
--- NOTE | 2017-05-08 13:39 | HHI.CCPN ---
Subjective Remarks/Hospital Course Patient is a 61-year-old male with past medical history of EtOH abuse, chronic obstructive pulmonary disease, seizure disorder, cerebrovascular accident, who presented to [facility] emergency department earlier this morning via EMS, under supposedly a Dwyer acted. The patient told the owner spa director of the Hotel where he is staying that he wants to commit suicide. The police were called and the patient was brought in to the hospital. On arrival to the emergency department he was found to have leukocytosis with a WBC of 21.6 and was in renal failure with creatinine of 2.51. The patient also had mild lactic acidemia with elevated lactic acid level 2.4 and elevated AST: 121 with total bilirubin 2.9. He had an ABG done this morning on 4 liters oxygen was which showed a pH of 7.34, CO2 28 and pAO2 135, bicarb 15, saturation 96%. Chest x-ray In the ER showed mild interstitial past is in the upper left lung. He also had CT abdomen and pelvis done which showed severe ascites along with steatosis of the liver and right inguinal hernia. [facility] was [facility] to [facility]. Critical care medicine was consulted for critical care management. When seen in ICU the patient was lethargic, unresponsive. He was subsequently intubated and placed on mechanical ventilation for airway protection. In the ICU the patient was hypotensive with systolic blood pressure in the 90s, A right IJ emergent central line was placed. 04/28 Patient is intubated off sedation started on Levophed yesterday 12 mics. s /p CT guided paracentesis with removal 4L. 04/29 Patient remains intubated and sedated with Fentanyl drip. Levophed down 7 mics, vasopressin added yesterday. Afebrile. On Bicarb drip. 04/30 Patient remains sedated with Fentanyl and intubated. Required increase FIO2/PEEP overnight given additional Bumex 2mg IV x1. CXR yesterday showed diffuse b/l pulm infiltrates. Levophed down to 5 mics, off Vasopressin. 05/01 Patient remains intubated off sedation Levophed down 3 mics. s/p paracentesis at bedside yesterday with removal 4L. Afebrile. Renal function worse today with Cr: 2.40 from 2.09. 05/02 No events overnight. Sedated with fentanyl and intubated, On Levophed 2mics. Tolerated CPAP for several hrs.. Cr: 2.28 from 2.4 05/03 Patient remains intubated, on no sedation unresponsive. MRI brain yesterday showed no evidence of hemorrhage/infarction. 05/04 No events overnight. Remains obtunded/unresponsive. Tmax 100.0 05/05: No acute events overnight, remains critically ill. WBC count 36.1. Ct abd shows ascites, C diff negative x2. Opens eyes, not following 05/06: Significant improvement in mentation today, WBC is elevated at 37.8 but patient is following commands. Drained tense ascites -appears cloud indicating bacterial peritonitis. K remains low at 2.5, getting IV and PO replacement 05/07: Seen and examined. Some draining from prior paracentesis site noted in collection bag. Resting comfortably in bed on nasal cannula. Tolerating pur ed honey thickened liquid diet. Positive BM. Subjective 05/08: Seen and examined. Complaining of condom catheter falling off. Tolerating current diet. Afebrile. On room air. Objective Vital Signs Date Time Temp Pulse Resp B/P (MAP) Pulse Ox O2 Delivery O2 Flow Rate FiO2 05/08/17 12:00 96.0 95 18 112/66 (81) 95 05/08/17 10:03 Nasal Cannula 2.00 05/07/17 20:47 21 Intake and Output 05/08/17 05/08/17 05/09/17 08:00 16:00 00:00 Intake Total 850 ml Output Total 610 ml Balance 240 ml Result Diagram: 05/08/17 0410 05/08/17 0410 Other Results Microbiology Date/Time Source Procedure Growth Status 05/03/17 10:10 Blood Peripheral Aerobic Blood Culture - Final NO GROWTH IN 5 DAYS Complete 05/03/17 10:10 Blood Peripheral Anaerobic Blood Culture - Final NO GROWTH IN 5 DAYS Complete 05/06/17 14:55 Fluid Peritoneal Fluid Gram Stain - Final Resulted 05/06/17 14:55 Fluid Peritoneal Fluid Body Fluid Culture - Preliminary NO GROWTH IN 48 HOURS. Resulted 05/02/17 08:10 Sputum Endotracheal Gram Stain - Final Complete 05/02/17 08:10 Sputum Endotracheal Sputum Culture - Final HEAVY GROWTH NORMAL RESPIRATORY JAMES Complete 04/26/17 20:10 Urine Random Urine Urine Culture - Final Escherichia Coli Complete Imaging Last Impressions Chest X-Ray 05/06/17 0600 Signed Impressions: Service Date/Time: April 03:33 - CONCLUSION: Persistent but improving increased interstitial markings likely related to improving edema. Carmine Saucedo MD Abdomen/Pelvis CT 05/04/17 0000 Signed Impressions: Service Date/Time: Thursday, May 04, 2017 16:12 - CONCLUSION: 1. COPD changes with minimal bilateral effusions. 2. Small cirrhotic appearing liver with diffuse fatty infiltration. 3. Diffuse high density ascites throughout the abdomen similar in appearance to previous of 04/27/17. 4. Mild diffuse small bowel thickening with no evidence of obstruction. Andrzej Loaiza MD Brain MRI 05/02/17 0000 Signed Impressions: Service Date/Time: Tuesday, May 02, 2017 13:22 - CONCLUSION: 1. No evidence of acute infarction or acute hemorrhage. 2. Diffuse confluent disseminated white matter signal abnormalities in the supratentorial brain is nonspecific in appearance and could be due to diffuse white matter disease or ischemic process. Cliff Lugo MD Abdomen Ultrasound 04/30/17 0000 Signed Impressions: Service Date/Time: Sunday, April 30, 2017 11:40 - CONCLUSION: Moderate ascites is still present. Jesus Duncan MD Paracentesis 04/27/17 1452 Signed Impressions: Service Date/Time: Thursday, April 27, 2017 15:51 - CONCLUSION: 1. One complicated CT-guided paracentesis. 2. Profound hepatic steatosis. Wallace Cordoba MD Head CT 04/27/17 0000 Signed Impressions: Service Date/Time: Thursday, April 27, 2017 15:44 - CONCLUSION: Diffuse atrophy is present. Areas of encephalomalacia involving the right temporal tip and the left orbitofrontal cortices. No evidence of acute hemorrhage or edema Jesus Duncan MD Objective Remarks GENERAL: 61-year-old male, resting in bed in no acute distress SKIN: Warm and dry. Tattoos left upper extremity HEAD: Normocephalic. EYES: No scleral icterus. No injection or drainage. NECK: Supple, trachea midline. No JVD or lymphadenopathy. Very poor dentition CARDIOVASCULAR: Regular rate and rhythm S1, S2. No S4 without murmur. RESPIRATORY: Breath sounds equal bilaterally. No accessory muscle use. GASTROINTESTINAL: Slightly distended. Reducible. Hypoactive bowel sounds are appreciated. MUSCULOSKELETAL: No significant peripheral edema. Neuro: Cranial nerves II through XII grossly intact. Strength is equal symmetric. Normal sensation. 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 Decker MRI brain 05/02: No evidence of infarction or hemorrhage Repeat EEG 05/02: Severe encephalopathy 04/27: EEG Mild- mod slowing. No epileptiform features. 04/27: CT brain: No acute findings On Thiamine, MVI, folic acid Seizure precautions Pulm: COPD Nasal cannula to maintain saturations greater than equal to 92%. Currently in room air Incentive spirometry while awake As needed bronchodilator therapy every 2 hours when necessary CV: Off all IV fluids Not requiring vasopressors and/or anti-hypertensives Weaning stress dose steroids Hydrocortisone- HC 25mg IV Q12 /renal/FEN: Hypernatremia Monitor renal function Is and Os, electrolytes replacement per protocol Renal function is improving with Cr: normalizing UOP adequate Renal- Dr. Lane. Has followed CT scan of the abdomen and pelvis 05/04 showed no evidence of hydronephrosis, masses or stones. GI: History of hepatitis C Hepatic steatosis Currently on regular diet./Pured with Honey thickened liquids Pantoprazole for GI prophylaxis Currently on Sandostatin 50 mcg every 8 hours. Likely discontinue soon Monitor LFT's, s/p CT guided paracentesis with removal 4 on 04/27 and repeat Paracentesis at bedside on 04/30 with 4L removal. Repeat large vol paracentesis 05/05 shows cloudy ascites fluid indicating SBP On lactulose 30 cc daily recheck ammonia level in a.m. CT abd/pelvis 05/04: Ascites , steatosis of liver. ID: SBP (spontaneous bacterial peritonitis) Escherichia coli UTI Severe sepsis Continue with abx per ID ( Cefepime, oral vanco, IV flagyl) BC 05/03: NGTD, 05/02 sputum: normal resp james Urine culture: E.coli. C-diff 05/01, 05/04 negative Heme: Leukocytosis Normocytic anemia Monitor CBC. Does not meet transfusion thresholds at this time Endo: SSI if needed for glucemic control Lines: Right IJ central line placed 04/27. Discontinue 05/06. PIV GI prophylaxis with Protonix and DVT prophylaxis with SCDs. Level 1 Patient is stable from a critical care medicine standpoint. Assign care to hospitalist in a.m. 05/09. Okay to transfer from ICU Steven Coello MD May 08, 2017 13:39
[2017-05-08] MEDS ORDERED: LACTULOSE SYRUP 20 GM/30 ML CUP PO ONE (13:45)
--- NOTE | 2017-05-08 15:55 | PD.CONS ---
HPI History of Present Illness This is a 61 year old male who was admitted to the hospital on 04/27/17. Patient initially came in under Dwyer act, and appeared to be suicidal. Patient was found to be severely wheezing and was brought to the emergency room for further evaluation. Patient also had abdominal pain and was noted to have severe ascites his initial CT showed severe abdominal pelvic ascites and steatosis of the liver. Patient was initially managed in the intensive care setting but was moved to a regular room within the last 24 hours. Gastroenterology has been consult for possible colitis. Patient is a poor historian, does not look up or make eye contact with verbal conversation, but will grimace to pain or discomfort. Patient's speech is slurred, which makes it difficult to communicate with him. There is no family present. The record notes one bowel movement on 05-08, large liquid brown yellow stool, incontinence. (Huma Sánchez) PFSH Past Medical History COPD Tobacco and alcohol abuse Cervical fracture Seizure disorder hx Noncompliance CVA Anxiety and depression History of subdural hematoma Alcohol abuse . Past Surgical History None, per the records (Huma Sánchez) Coded Allergies: codeine (Unverified Allergy, Severe, N/V, 04/26/17) propoxyphene (Unverified Allergy, Severe, HIVES, 04/26/17) Medications Administered Medications Medications (Trade) Dose Ordered Sig/Shanelle Route PRN Reason Start Time Stop Time Status Last Admin Dose Admin Sodium Chloride (NS Flush) 2 ml UNSCH PRN IV FLUSH FLUSH AFTER USING IV ACCESS 04/26/17 22:30 05/02/17 08:34 Sodium Chloride (NS Flush) 2 ml BID IV FLUSH 04/27/17 09:00 05/08/17 09:04 Lorazepam (Ativan Inj) 1 mg Q4H PRN IV PUSH CIWA 8 - 10 04/26/17 22:30 04/27/17 01:08 Thiamine HCl (Vitamin B1) 100 mg DAILY PO 04/30/17 09:00 05/08/17 09:03 Calcium Carbonate (Oscal) 500 mg Q12HR PO 04/27/17 09:00 05/08/17 09:03 Folic Acid (Folate) 1 mg DAILY PO 04/27/17 13:30 05/08/17 09:04 Multivitamins (Theragran) 1 tab DAILY PO 04/27/17 13:30 05/08/17 09:03 Octreotide Acetate (SandoSTATIN INJ) 50 mcg Q8HR IV PUSH 05/01/17 14:00 05/08/17 14:22 Potassium Chloride 100 ml @ 50 mls/hr Q2H PRN IV For Potassium 2.8 - 3.2 mEq/L 05/03/17 08:00 05/06/17 10:24 Potassium Chloride 100 ml @ 50 mls/hr Q2H PRN IV For Potassium 2.8 - 3.2 mEq/L 05/03/17 08:00 05/05/17 09:04 Potassium Bicarb/ Potassium Chloride (K-Lyte Cl Eff) 50 meq UNSCH PRN PO For Potassium 3.3 - 3.5 mEq/L 05/03/17 08:00 05/06/17 10:31 Magnesium Sulfate 4 gm/Sodium Chloride 100 ml @ 50 mls/hr UNSCH PRN IV For Magnesium 0.9 - 1.1 mg/dL 05/03/17 08:00 05/04/17 06:42 Magnesium Oxide (Mag-Ox) 800 mg UNSCH PRN PO For Magnesium 1.2 - 1.6 mg/dL 05/03/17 08:00 05/03/17 11:05 Potassium Phosphate (K-Phos) 2,000 mg Q4H PRN PO For Phosphorus < 2.5 mg/dL 05/03/17 08:00 05/03/17 20:39 Hydrocortisone Sodium Succinate (SoluCORTEF INJ) 25 mg Q12HR IV PUSH 05/04/17 09:00 05/08/17 09:03 Metronidazole 100 ml @ 100 mls/hr Q8H IV 05/04/17 16:00 05/08/17 09:03 Cefepime HCl 2000 mg/Sodium Chloride 100 ml @ 200 mls/hr Q12H IV 05/04/17 16:00 05/08/17 04:57 Vancomycin HCl (VANCOMYCIN for oral use only) 500 mg Q6H PO 05/04/17 18:00 05/08/17 11:42 Insulin Human Regular (NovoLIN R SUPPLEMENTAL SCALE) 1 ACHS SQ 05/07/17 21:00 05/07/17 22:00 Pantoprazole Sodium (Protonix) 40 mg DAILY PO 05/08/17 09:00 05/08/17 09:03 Family History Patient refused to answer this admission, no available family history per review of EMR, patient now ventilated, sedated and unable to provide Social History Patient refuses to answer. From previous medical records smokes about 6 cigarettes per day since he was 3 years old, drinks about 2-3 beers daily. (Huma Sánchez) GI Exam Vitals I&O Vital Signs Date Time Temp Pulse Resp B/P (MAP) Pulse Ox O2 Delivery O2 Flow Rate FiO2 05/08/17 12:00 96.0 95 18 112/66 (81) 95 05/08/17 10:03 Nasal Cannula 2.00 05/08/17 06:00 97 05/08/17 04:00 92 05/08/17 04:00 98.0 92 17 147/68 (94) 79 05/08/17 02:00 90 05/08/17 00:00 89 05/08/17 00:00 98.1 89 20 130/67 (88) 95 05/07/17 22:00 92 05/07/17 20:47 95 21 05/07/17 20:00 94 05/07/17 20:00 98.3 94 18 116/56 (76) 94 05/07/17 19:00 93 Nasal Cannula 3.00 05/07/17 18:00 92 05/07/17 17:00 94 108/63 (78) 94 05/07/17 16:00 98.4 93 104/56 (72) 95 05/07/17 16:00 93 I/O 05/07/17 05/07/17 05/07/17 05/08/17 05/08/17 05/08/17 07:00 15:00 23:00 07:00 15:00 23:00 Intake Total 250 ml 360 ml 540 ml 850 ml Output Total 805 ml 475 ml 610 ml Balance -555 ml 360 ml 65 ml 240 ml Intake Oral 240 ml 650 ml IV Total 200 ml 360 ml 250 ml 200 ml Albumin 50 ml 50 ml Output Urine Total 800 ml 350 ml 500 ml Drainage Total 5 ml 125 ml 110 ml # Bowel Movements 3 2 1 Imaging Last Impressions Chest X-Ray 05/06/17 0600 Signed Impressions: Service Date/Time: April 03:33 - CONCLUSION: Persistent but improving increased interstitial markings likely related to improving edema. Carmine Saucedo MD Abdomen/Pelvis CT 05/04/17 0000 Signed Impressions: Service Date/Time: Thursday, May 04, 2017 16:12 - CONCLUSION: 1. COPD changes with minimal bilateral effusions. 2. Small cirrhotic appearing liver with diffuse fatty infiltration. 3. Diffuse high density ascites throughout the abdomen similar in appearance to previous of 04/27/17. 4. Mild diffuse small bowel thickening with no evidence of obstruction. Andrzej Loaiza MD Brain MRI 05/02/17 0000 Signed Impressions: Service Date/Time: Tuesday, May 02, 2017 13:22 - CONCLUSION: 1. No evidence of acute infarction or acute hemorrhage. 2. Diffuse confluent disseminated white matter signal abnormalities in the supratentorial brain is nonspecific in appearance and could be due to diffuse white matter disease or ischemic process. Cliff Lugo MD Abdomen Ultrasound 04/30/17 0000 Signed Impressions: Service Date/Time: Sunday, April 30, 2017 11:40 - CONCLUSION: Moderate ascites is still present. Jesus Duncan MD Paracentesis 04/27/17 1452 Signed Impressions: Service Date/Time: Thursday, April 27, 2017 15:51 - CONCLUSION: 1. One complicated CT-guided paracentesis. 2. Profound hepatic steatosis. Wallace Cordoba MD Head CT 04/27/17 0000 Signed Impressions: Service Date/Time: Thursday, April 27, 2017 15:44 - CONCLUSION: Diffuse atrophy is present. Areas of encephalomalacia involving the right temporal tip and the left orbitofrontal cortices. No evidence of acute hemorrhage or edema Jesus Duncan MD Laboratory Test 05/08/17 04:10 White Blood Count 38.3 TH/MM3 Red Blood Count 3.40 MIL/MM3 Hemoglobin 9.8 GM/DL Hematocrit 31.8 % Mean Corpuscular Volume 93.5 FL Mean Corpuscular Hemoglobin 28.9 PG Mean Corpuscular Hemoglobin Concent 31.0 % Red Cell Distribution Width 17.0 % Platelet Count 119 TH/MM3 Mean Platelet Volume 11.1 FL Neutrophils (%) (Auto) 88.0 % Lymphocytes (%) (Auto) 4.2 % Monocytes (%) (Auto) 6.9 % Eosinophils (%) (Auto) 0.5 % Basophils (%) (Auto) 0.4 % Neutrophils # (Auto) 33.7 TH/MM3 Lymphocytes # (Auto) 1.6 TH/MM3 Monocytes # (Auto) 2.7 TH/MM3 Eosinophils # (Auto) 0.2 TH/MM3 Basophils # (Auto) 0.1 TH/MM3 CBC Comment AUTO DIFF Differential Total Cells Counted 100 Neutrophils % (Manual) 92 % Lymphocytes % 1 % Monocytes % 6 % Neutrophils # (Manual) 35.6 TH/MM3 Myelocytes 1 % Differential Comment FINAL DIFF MANUAL Platelet Estimate LOW Platelet Morphology Comment NORMAL Red Cell Morphology Comment NORMAL Blood Urea Nitrogen 42 MG/DL Creatinine 1.36 MG/DL Random Glucose 126 MG/DL Total Protein 6.4 GM/DL Albumin 2.3 GM/DL Calcium Level 7.9 MG/DL Phosphorus Level 2.2 MG/DL Magnesium Level 1.7 MG/DL Alkaline Phosphatase 200 U/L Aspartate Amino Transf (AST/SGOT) 107 U/L Alanine Aminotransferase (ALT/SGPT) 74 U/L Total Bilirubin 6.4 MG/DL Sodium Level 148 MEQ/L Potassium Level 3.9 MEQ/L Chloride Level 116 MEQ/L Carbon Dioxide Level 24.1 MEQ/L Anion Gap 8 MEQ/L Estimat Glomerular Filtration Rate 53 ML/MIN Ammonia LESS THAN 10 MCMOL/L Date/Time Source Procedure Growth Status 05/03/17 10:10 Blood Peripheral Aerobic Blood Culture - Final NO GROWTH IN 5 DAYS Complete 05/03/17 10:10 Blood Peripheral Anaerobic Blood Culture - Final NO GROWTH IN 5 DAYS Complete 05/06/17 14:55 Fluid Peritoneal Fluid Gram Stain - Final Resulted 05/06/17 14:55 Fluid Peritoneal Fluid Body Fluid Culture - Preliminary NO GROWTH IN 48 HOURS. Resulted 05/02/17 08:10 Sputum Endotracheal Gram Stain - Final Complete 05/02/17 08:10 Sputum Endotracheal Sputum Culture - Final HEAVY GROWTH NORMAL RESPIRATORY SHERYL Complete 04/26/17 20:10 Urine Random Urine Urine Culture - Final Escherichia Coli Complete Physical Examination HEENT: Pupils 3 mm bilateral normocephalic; atraumatic; ready complexion, mild jaundice, edentulous NECK: Neck is supple, no JVD, CHEST: Chest no audible wheezes or rhonchi CARDIAC: Regular rate and rhythm , S1 and S2 ABDOMEN: Mild to moderate abdominal distention, limited exam but tender to tactile stimulation, bowel sounds are present in all four quadrants. EXTREMITIES: Dry scaly lower extremities, feet and heels protected in soft foods SKIN: Dry, ready; no rash; mild jaundice. OUTSOLE CASER: Responds and combative at times to tactile stimulation, occasional groaning, difficult to understand any particular words (Huma Sánchez) Assessment and Plan Assessment: (1) diarrhea (2) Abdominal pain ICD Codes: R10.9 - Unspecified abdominal pain (3) Hepatic encephalopathy ICD Codes: K72.90 - Hepatic failure, unspecified without coma Status: Acute (4) Alcohol abuse ICD Codes: F10.10 - Alcohol abuse Status: Chronic (5) Encephalopathy ICD Codes: G93.40 - Encephalopathy, unspecified Plan Diarrhea, continues in the presence of 2 negative C. difficile toxins in 7 days. AST initially 117 on 05-07, decreased on -down to 107, normal ALT 74, Hyperbilirubinemia, increased today up to 6.4, alkaline phosphate 200 Leukocytosis continues 38.3 essentially unchanged over the past 4 days, patient remains on IV steroids CT done on 05-04, shows fatty liver disease, cirrhosis with diffuse fatty infiltration, diffuse high density ascites throughout the abdomen, mild diffuse small bowel thickening without evidence of obstruction. Previous ultrasound done on 04-30 shows moderate ascites, Note paracentesis done on 04-27. Plan Recheck C. difficile, pending order and from 05-04, requesting nursing to check next stool available. If ok with lab Patient continues to have at least one diarrhea stool a day, abdomen still has tenderness when attempting to examine Patient may need colonoscopy in the future, this will be based on his findings and symptoms, TBA Continue lactulose daily Protonix by mouth daily Vancomycin 500 mg by mouth every 6h Flagyl IV every 8h Sandostatin IV every 8 Bowel regimen as warranted Plan of care based on symptoms and findings of above Patient was seen by myself and Dr. Ferro, documentation on her behalf (Huma Sánchez) Physician Comments seen, examined agree with above nutritional consult speech therapy reevaluated possible flexisigmoidoscopy Wednesday if not better-patient also receiving Lactulose daily (Amarilis Ferro MD) Huma Sánchez May 08, 2017 15:54 Amarilis Ferro MD May 08, 2017 17:51
[2017-05-08 18:38] LABS: C. DIFF EPI 027 PRESUMPTIVE NEGATIVE (NEGATIVE)
[2017-05-08] MEDS ORDERED: PHARMACY ORDERED LAB ONE (23:45)
[2017-05-09] MEDS: VANCOMYCIN 500 MG VIAL (FOR ORAL USE ONLY) PO SCH ×4 (00:41→16:50)
[2017-05-09] MEDS: OCTREOTIDE INJ 50 MCG/ML AMP IV PUSH SCH ×4 (00:41→20:25)
[2017-05-09 01:49] VITALS: BP 138/72; PULSE 91; RESP 20; TEMP 98.5; O2SAT 94
[2017-05-09] MEDS: CEFEPIME INJ 2,000 MG in SODIUM CHLORIDE 0.9% INJ 100 ML IV SCH ×2 (04:04→16:49)
[2017-05-09 08:00] VITALS: BP 125/66; PULSE 86; RESP 20; TEMP 96.6; O2SAT 95
[2017-05-09] MEDS: INSULIN NovoLIN REGULAR SUPPLEMENTAL SCALE SQ SCH ×4 (08:00→21:24)
[2017-05-09] MEDS: SODIUM CHLORIDE 0.9% FLUSH 10 ML FLUSH IV FLUSH SCH ×2 (09:29→20:24)
[2017-05-09] MEDS: CALCIUM CARBONATE 1.25 GM (CA 500 MG) TAB PO SCH ×2 (09:29→20:25)
[2017-05-09] MEDS: MULTIVITAMIN TAB PO SCH (09:29)
[2017-05-09] MEDS: THIAMINE HCL 100 MG TAB PO SCH (09:29)
[2017-05-09] MEDS: HYDROCORTISONE SOD SUCCINATE 100 MG VIAL IV PUSH SCH (09:29)
[2017-05-09] MEDS: FOLIC ACID 1 MG TAB PO SCH (09:29)
[2017-05-09] MEDS: metroNIDAZOLE 500 MG INJ 100 ML IV SCH ×2 (09:29→15:42)
[2017-05-09] MEDS: LACTULOSE SYRUP 20 GM/30 ML CUP PO SCH (09:29)
[2017-05-09] MEDS: PANTOPRAZOLE SOD 40 MG DELAYED RELEASE TAB PO SCH (09:30)
--- NOTE | 2017-05-09 11:11 | HHI.PR ---
Subjective Remarks Follow-up for infection and altered mental status Patient continued to be confused. When asked him why his abdomen is large he thinks that he is . He also said that he is seeing things. Discussed case with patient's nurse who stated that yesterday he was AAO 3. She does state that today he is confused and is intermittently confused. Besides agitation patient's nurse has no other complaints. He remains afebrile and off of oxygen. Objective Vitals Vital Signs Date Time Temp Pulse Resp B/P (MAP) Pulse Ox O2 Delivery O2 Flow Rate FiO2 05/09/17 08:00 96.6 86 20 125/66 (85) 95 05/09/17 01:49 98.5 91 20 138/72 (94) 94 05/08/17 23:53 97.7 96 18 129/65 (86) 96 05/08/17 22:55 Room Air 05/08/17 16:00 95.6 96 18 113/70 (84) 96 05/08/17 12:00 96.0 95 18 112/66 (81) 95 I/O 05/08/17 05/08/17 05/08/17 05/09/17 05/09/17 05/09/17 07:00 15:00 23:00 07:00 15:00 23:00 Intake Total 850 ml 680 ml 440 ml Output Total 610 ml 350 ml 50 ml Balance 240 ml 330 ml 390 ml Intake Oral 650 ml 480 ml 240 ml IV Total 200 ml 200 ml 200 ml Output Urine Total 500 ml 300 ml Drainage Total 110 ml 50 ml 50 ml # Voids 3 # Bowel Movements 1 3 3 Result Diagram: 05/08/17 04105/08/17409 Objective Remarks GENERAL: 61-year-old male, resting in bed in no acute distress CARDIOVASCULAR: Regular rate and rhythm S1, S2. No S4 without murmur. RESPIRATORY: Breath sounds equal bilaterally. No accessory muscle use. GASTROINTESTINAL:distended but soft. Hypoactive bowel sounds. MUSCULOSKELETAL: No significant peripheral edema. Neuro: Motor grossly intact. AAO 3. Patient remains confused. Medications and IVs Current Medications Sodium Chloride 1,000 ml @ 1,000 mls/hr Q1H IV Last administered on t 20:29; Start 04/26/17 at 17:24; Stop 04/26/17 at 18:23; Status DC Sodium Chloride (NS Flush) 2 ml UNSCH PRN IV FLUSH FLUSH AFTER USING IV ACCESS ; Start 04/26/17 at 17:30; Stop 04/27/17 at 00:54; Status DC Lorazepam (Ativan Inj) 1 mg ONCE ONCE IV PUSH ; Start 04/26/17 at 18:00; Stop 04/26/17 at 18:01; Status DC Ceftriaxone Sodium 1000 mg/ Sodium Chloride 100 ml @ 200 mls/hr ONCE ONCE IV Last administered on 04/26/17 20:34; Start 04/26/17 at 20:45; Stop 04/26/17 at 21:14; Status DC Azithromycin 500 mg/Sodium Chloride 250 ml @ 250 mls/hr ONCE ONCE IV Last administered on 04/26/17 21:15; Start 04/26/17 at 20:45; Stop 04/26/17 at 21 :44; Status DC Sodium Chloride 1,000 ml @ 1,000 mls/hr Q1H IV Last administered on 21:15; Start 04/26/17 at 20:44; Stop 04/26/17 at 21:43; Status DC Sodium Chloride 1,000 ml @ 70 mls/hr [id number] IV Last administered on 22:55; Start 04/26/17 at 22:17; Stop 04/27/17 at 09:52; Status DC Sodium Chloride (NS Flush) 2 ml UNSCH PRN IV FLUSH FLUSH AFTER USING IV ACCESS Last administered on 05/02/17 08:34; Start 04/26/17 at 22:30 Sodium Chloride (NS Flush) 2 ml BID IV FLUSH Last administered on 05/09/17 09: 29; Start 04/27/17 at 09:00 Ondansetron HCl (Zofran Inj) 4 mg Q6H PRN IVP NAUSEA OR VOMITING; Start at 22:30 Naloxone HCl (Narcan Inj) 0.4 mg UNSCH PRN IV PUSH SEE LABEL COMMENTS; Start 04/26/17 at 22:30 Senna/Docusate Sodium (Yue-Colace) 1 tab BID PO Last administered on 09:04; Start 04/27/17 at 09:00; Stop 05/08/17 at 13:43; Status DC Magnesium Hydroxide (Milk Of Magnesia Liq) 30 ml Q12H PRN PO Mild constipation ; Start 04/26/17 at 22:30 Sennosides (Senokot) 17.2 mg Q12H PRN PO Moderate constipation; Start at 22:30 Bisacodyl (Dulcolax Supp) 10 mg DAILY PRN RECTAL SEVERE CONSITIPATION; Start 04/26/17 at 22:30; Stop 05/07/17 at 19:07; Status DC Lactulose (Lactulose Liq) 30 ml DAILY PRN PO SEVERE CONSITIPATION; Start 04/26 at 22:30; Stop 05/03/17 at 19:38; Status DC Flumazenil (Romazicon Inj) 0.2 mg Q1M PRN IV PUSH SEE LABEL COMMENTS; Start at 22:30 Lorazepam (Ativan) 1 mg Q4H PRN PO CIWA 8 - 10; Start 04/26/17 at 22:30 Lorazepam (Ativan Inj) 1 mg Q4H PRN IV PUSH CIWA 8 - 10 Last administered on t 01:08; Start 04/26/17 at 22:30 Lorazepam (Ativan) 2 mg Q2H PRN PO CIWA 11-14; Start 04/26/17 at 22:30 Lorazepam (Ativan Inj) 2 mg Q2H PRN IV PUSH CIWA 11-14; Start 04/26/17 at 22: 30 Lorazepam (Ativan Inj) 2 mg Q1H PRN IV PUSH CIWA 15-20; Start 04/26/17 at 22: 30 Lorazepam (Ativan Inj) 2 mg Q15M PRN IV PUSH CIWA > 20; Start 04/26/17 at 22: 30 Azithromycin (Zithromax) 250 mg DAILY PO Last administered on 05/06/17t 07:49 ; Start 04/27/17 at 09:00; Stop 05/06/17 at 14:33; Status DC Ceftriaxone Sodium 1000 mg/ Sodium Chloride 100 ml @ 200 mls/hr Q24H IV ; Start 04/27/17 at 20:00; Stop 04/27/17 at 20:00; Status DC Permethrin (Nix Creme Rinse 1% Lotion) 1 applic ONCE ONCE TOPICAL Last administered on 04/27/17 04:03; Start 04/27/17 at 00:30; Stop 04/27/17 at 00 :31; Status DC Albuterol/ Ipratropium (Duoneb Neb) 1 ampule Q4HR NEB NEB Last administered on 04/30/17 23:12; Start 04/27/17 at 00:45; Stop 05/01/17 at 00:44; Status DC Multivitamins 10 ml/Folic Acid 1 mg/Sodium Chloride 510.2 ml @ 125 mls/hr Q24H IV Last administered on 04/27/17 02:16; Start 04/27/17 at 02:00; Stop 04/27 at 13:22; Status DC Thiamine HCl 100 mg/Sodium Chloride 101 ml @ 100 mls/hr Q24H IV Last administered on 04/27/17 02:16; Start 04/27/17 at 02:00; Stop 04/27/17 at 13 :22; Status DC Thiamine HCl (Vitamin B1) 100 mg DAILY PO Last administered on 05/09/17 09:29 ; Start 04/30/17 at 09:00 Calcium Carbonate (Oscal) 500 mg Q12HR PO Last administered on 05/09/17 09:29 ; Start 04/27/17 at 09:00 Sodium Chloride 500 ml @ 999 mls/hr Q31M ONCE IV Last administered on 08:15; Start 04/27/17 at 08:15; Stop 04/27/17 at 08:45; Status DC Potassium Chloride 100 ml @ 50 mls/hr Q2H IV Last administered on 04/27/17 11:31; Start 04/27/17 at 09:00; Stop 04/27/17 at 12:59; Status DC Calcium Chloride 1 gm/Sodium Chloride 110 ml @ 100 mls/hr ONCE ONCE IV Last administered on 04/27/17 11:30; Start 04/27/17 at 10:00; Stop 04/27/17 at 11 :05; Status DC Fentanyl Citrate 250 ml @ 5 mls/hr TITRATE PRN IV SEDATION Last administered on 04/30/17 17:55; Start 04/27/17 at 10:00; Stop 05/02/17 at 18:40; Status DC Propofol 100 ml @ 2.106 mls/ hr TITRATE PRN IV SEDATION; Start 04/27/17 at 10 :00; Stop 05/02/17 at 07:56; Status DC Terbutaline Sulfate (Brethine Inj) 1 mg UNSCH PRN SQ For Extravasation; Start 04/27/17 at 10:00 Sodium Chloride 1,000 ml @ 999 mls/hr BOLUS ONCE IV Last administered on 10:58; Start 04/27/17 at 10:00; Stop 04/27/17 at 11:00; Status DC Piperacillin Sod/ Tazobactam Sod 50 ml @ 100 mls/hr Q8H IV Last administered on 05/04/17 09:50; Start 04/27/17 at 10:00; Stop 05/04/17 at 15:28; Status DC Vancomycin HCl 1000 mg/Sodium Chloride 250 ml @ 250 mls/hr ONCE ONCE IV Last administered on 04/27/17 11:29; Start 04/27/17 at 10:00; Stop 04/27/17 at 10 :59; Status DC Dextrose/Sodium Chloride 1,000 ml @ 84 mls/hr [id number] IV Last administered on 04/28/17 11:12; Start 04/27/17 at 10:00; Stop 04/28/17 at 14:20; Status DC Sodium Bicarbonate (Sodium Bicarbonate 8.4% Inj) 100 meq ONCE ONCE IV PUSH Last administered on 04/27/17 11:29; Start 04/27/17 at 10:00; Stop 04/27/17 at 10:01; Status DC Etomidate (Amidate Inj) 40 mg STK-MED ONCE .ROUTE ; Start 04/27/17 at 09:51; Stop 04/27/17 at 09:52; Status DC Etomidate (Amidate Inj) 20 mg STAT ONCE IV PUSH Last administered on 10:02; Start 04/27/17 at 10:02; Stop 04/27/17 at 10:03; Status DC Sodium Chloride 1,000 ml @ 999 mls/hr BOLUS ONCE IV Last administered on 12:57; Start 04/27/17 at 12:30; Stop 04/27/17 at 13:30; Status DC Lactulose (Lactulose Liq) 30 ml TID PO Last administered on 04/28/17 11:58; Start 04/27/17 at 13:00; Stop 04/28/17 at 14:37; Status DC Famotidine (Pepcid Inj) 10 mg Q12H IV PUSH Last administered on 05/07/17 13:31 ; Start 04/27/17 at 14:00; Stop 05/07/17 at 13:48; Status DC Folic Acid (Folate) 1 mg DAILY PO Last administered on 05/09/17 09:29; Start 04/27/17 at 13:30 Multivitamins (Theragran) 1 tab DAILY PO Last administered on 05/09/17 09:29; Start 04/27/17 at 13:30 Norepinephrine Bitartrate 250 ml @ 7.5 mls/hr TITRATE PRN IV Maintain MAP > 65 mmHg Last administered on 05/02/17 05:03; Start 04/27/17 at 15:15; Stop 05/04/17 at 07:41; Status DC Albumin Human 250 ml @ 250 mls/hr Q12H IV Last administered on 04/29/17 04: 46; Start 04/27/17 at 17:00; Stop 04/29/17 at 13:00; Status DC Calcium Gluconate 1 gm/Sodium Chloride 110 ml @ 110 mls/hr ONCE ONCE IV Last administered on 04/27/17 18:37; Start 04/27/17 at 17:30; Stop 04/27/17 at 18 :29; Status DC Potassium Chloride 100 ml @ 50 mls/hr BOLUS ONCE IV Last administered on 18:03; Start 04/27/17 at 17:30; Stop 04/27/17 at 19:29; Status DC Micafungin Sodium 150 mg/Sodium Chloride 100 ml @ 100 mls/hr Q24H IV Last administered on 05/05/17 22:00; Start 04/27/17 at 22:00; Stop 05/06/17 at 14 :23; Status DC Miscellaneous Information Patient in critical care unit? Ass... [id number] .XX ; Start 04/28/17 at 00:30 Chlorhexidine Gluconate (Chlorhexidine 2% Cloth) 3 pack DAILY@04 TOPICAL Last administered on 05/02/17 04:00; Start 04/28/17 at 04:00; Stop 05/02/17 at 04 :01; Status DC Chlorhexidine Gluconate (Chlorhexidine 2% Cloth) 3 pack UNSCH PRN TOPICAL HYGIENIC CARE; Start 04/28/17 at 00:30; Stop 05/03/17 at 00:19; Status DC Sodium Chloride 1,000 ml @ 0 mls/hr Q0M ONCE IV ; Start 04/28/17 at 07:00; Stop 04/28/17 at 07:01; Status DC Potassium Chloride 100 ml @ 50 mls/hr Q2H IV ; Start 04/28/17 at 07:00; Stop 04/28/17 at 10:59; Status Cancel Potassium Chloride 100 ml @ 25 mls/hr ONCE ONCE IV Last administered on 04/28 08:00; Start 04/28/17 at 07:15; Stop 04/28/17 at 11:14; Status DC Dextrose (D50w (Vial) Inj) 50 ml UNSCH PRN IV PUSH HYPOGLYCEMIA-SEE COMMENTS; Start 04/28/17 at 07:00 Glucagon (Glucagon Inj) 1 mg UNSCH PRN OTHER HYPOGLYCEMIA-SEE COMMENTS; Start 04/28/17 at 07:00 Insulin Human Regular (NovoLIN R SUPPLEMENTAL SCALE) 1 Q4HR SQ Last administered on 05/06/17 09:19; Start 04/28/17 at 08:00; Stop 05/07/17 at 18: 52; Status DC Hydrocortisone Sodium Succinate (SoluCORTEF INJ) 50 mg Q6HR IV PUSH Last administered on 04/29/17 04:47; Start 04/28/17 at 07:00; Stop 04/29/17 at 13 :00; Status DC Vasopressin (Pitressin Inj) 20 units STK-MED ONCE .ROUTE ; Start 04/28/17 at 09 :25; Stop 04/28/17 at 09:26; Status DC Vasopressin 40 units/Dextrose 100 ml @ 6 mls/hr [id number] IV ; Start 04/28/17 at 09:27; Stop 04/28/17 at 09:38; Status DC Vasopressin 40 units/Dextrose 100 ml @ 6 mls/hr [id number] IV Last administered on 04/29/17 06:06; Start 04/28/17 at 09:45; Stop 05/02/17 at 07:56; Status DC Sodium Chloride 38.5 meq/Sodium Bicarbonate 100 meq/Sterile Water 1,000 ml @ 75 mls/hr [id number] IV ; Start 04/28/17 at 16:00; Stop 04/28/17 at 16:48; Status DC Lactulose (Lactulose Liq) 30 ml QID PO Last administered on 05/02/17 20:35; Start 04/28/17 at 18:00; Stop 05/03/17 at 19:38; Status DC Potassium Chloride 100 ml @ 25 mls/hr BOLUS ONCE IV Last administered on 15:20; Start 04/28/17 at 15:15; Stop 04/28/17 at 19:14; Status DC Rifaximin (Xifaxan) 550 mg BID PO Last administered on 05/03/17 08:44; Start 04/28/17 at 21:00; Stop 05/03/17 at 19:39; Status DC Sodium Chloride 38.5 meq/Sodium Bicarbonate 100 meq/Sterile Water 1,000 ml @ 75 mls/hr [id number] IV Last administered on 04/29/17 05:56; Start 04/28/17 at 17:00; Stop 04/29/17 at 12:52; Status DC Vancomycin HCl 1000 mg/Sodium Chloride 250 ml @ 250 mls/hr ONCE ONCE IV Last administered on 04/28/17 18:22; Start 04/28/17 at 18:00; Stop 04/28/17 at 18 :59; Status DC Calcium Gluconate 2 gm/Sodium Chloride 120 ml @ 100 mls/hr NOW IV Last administered on 04/29/17 06:06; Start 04/29/17 at 06:00; Stop 04/29/17 at 07 :11; Status DC Potassium Chloride 100 ml @ 25 mls/hr Q4H IV Last administered on 04/29/17 10:00; Start 04/29/17 at 06:00; Stop 04/29/17 at 13:59; Status DC Bumetanide (Bumex Inj) 1 mg ONCE ONCE IV PUSH Last administered on 04/29/17 13:15; Start 04/29/17 at 13:00; Stop 04/29/17 at 13:13; Status DC Hydrocortisone Sodium Succinate (SoluCORTEF INJ) 50 mg Q12HR IV PUSH Last administered on 05/03/17 20:39; Start 04/29/17 at 21:00; Stop 05/04/17 at 07 :41; Status DC Bumetanide 100 ml @ 2 mls/hr Q24H IV ; Start 04/29/17 at 15:00; Stop 04/29/17 at 15:00; Status DC Bumetanide (Bumex Inj) 1 mg Q8H IV PUSH Last administered on 05/02/17 04:54; Start 04/29/17 at 20:00; Stop 05/02/17 at 07:56; Status DC Vancomycin HCl 1000 mg/Sodium Chloride 250 ml @ 250 mls/hr ONCE ONCE IV Last administered on 04/29/17 20:02; Start 04/29/17 at 17:45; Stop 04/29/17 at 18 :44; Status DC Bumetanide (Bumex Inj) 2 mg NOW ONCE IV PUSH Last administered on 04/29/17 20:27; Start 04/29/17 at 20:00; Stop 04/29/17 at 20:01; Status DC Midazolam HCl 100 ml @ 2 mls/hr TITRATE PRN IV SEDATION; Start 04/30/17 at 13: 30; Stop 05/02/17 at 07:56; Status DC Midazolam HCl (Versed Inj) 2 mg ONCE ONCE IV PUSH Last administered on 13:52; Start 04/30/17 at 13:30; Stop 04/30/17 at 13:36; Status DC Albumin Human 50 ml @ 60 mls/hr Q12H IV Last administered on 05/07/17 18:14; Start 04/30/17 at 18:00; Stop 05/07/17 at 18:52; Status DC Octreotide Acetate (SandoSTATIN INJ) 50 mcg Q8HR IV PUSH Last administered on 05/09/17 05:18; Start 05/01/17 at 14:00 Bumetanide (Bumex Inj) 2 mg NOW ONCE IV PUSH Last administered on 05/02/17 08:34; Start 05/02/17 at 08:00; Stop 05/02/17 at 08:01; Status DC Bumetanide 100 ml @ 2 mls/hr Q24H IV ; Start 05/02/17 at 07:52; Stop 05/02/17 at 08:04; Status DC Water (Free Water) 250 ml Q8HR G-TUBE Last administered on 05/03/17 05:14; Start 05/02/17 at 08:00; Stop 05/03/17 at 10:16; Status DC Bumetanide (Bumex Inj) 1 mg BID@0900,1800 IV PUSH Last administered on 17:30; Start 05/02/17 at 18:00; Stop 05/03/17 at 08:02; Status DC Potassium Chloride 100 ml @ 50 mls/hr Q2H PRN IV For Potassium 2.8 - 3.2 mEq/ L Last administered on 05/06/17 10:24; Start 05/03/17 at 08:00; Stop at 07:09; Status DC Potassium Chloride 100 ml @ 50 mls/hr Q2H PRN IV For Potassium 2.8 - 3.2 mEq/ L Last administered on 05/05/17 09:04; Start 05/03/17 at 08:00; Stop at 07:09; Status DC Potassium Bicarb/ Potassium Chloride (K-Lyte Cl Eff) 50 meq UNSCH PRN PO For Potassium 3.3 - 3.5 mEq/L Last administered on 05/06/17 10:31; Start at 08:00; Stop 05/09/17 at 07:09; Status DC Potassium Chloride 100 ml @ 25 mls/hr UNSCH PRN IV For Potassium 3.3 - 3.5 mEq /L; Start 05/03/17 at 08:00; Stop 05/09/17 at 07:09; Status DC Potassium Chloride 100 ml @ 50 mls/hr Q2H PRN IV For Potassium 3.3 - 3.5 mEq/L ; Start 05/03/17 at 08:00; Stop 05/09/17 at 07:09; Status DC Magnesium Sulfate 4 gm/Sodium Chloride 100 ml @ 50 mls/hr UNSCH PRN IV For Magnesium 0.9 - 1.1 mg/dL Last administered on 05/04/17 06:42; Start at 08:00; Stop 05/09/17 at 07:09; Status DC Magnesium Oxide (Mag-Ox) 800 mg UNSCH PRN PO For Magnesium 1.2 - 1.6 mg/dL Last administered on 05/03/17 11:05; Start 05/03/17 at 08:00; Stop 05/09/17 at 07:09; Status DC Magnesium Sulfate 2 gm/Sodium Chloride 100 ml @ 50 mls/hr UNSCH PRN IV For Magnesium 1.2 - 1.6 mg/dL; Start 05/03/17 at 08:00; Stop 05/09/17 at 07:09; Status DC Potassium Phosphate (K-Phos) 2,000 mg Q4H PRN PO For Phosphorus < 2.5 mg/dL Last administered on 05/03/17 20:39; Start 05/03/17 at 08:00; Stop 05/09/17 at 07:09; Status DC Sodium Phosphate 30 mmol/Sodium Chloride 250 ml @ 42 mls/hr UNSCH PRN IV For Phosphorus < 2.5 mg/dL; Start 05/03/17 at 08:00; Stop 05/09/17 at 07:09; Status DC Potassium Phosphate (K-Phos) 2,000 mg UNSCH PRN PO/TUBE SEE LABEL COMMENTS; Start 05/03/17 at 08:00; Stop 05/09/17 at 07:09; Status DC Potassium Phosphate 30 mmol/ Sodium Chloride 260 ml @ 42 mls/hr UNSCH PRN IV SEE LABEL COMMENTS; Start 05/03/17 at 08:00; Stop 05/09/17 at 07:09; Status DC Water (Free Water) 300 ml Q6HR G-TUBE Last administered on 05/06/17 12:00; Start 05/03/17 at 12:00; Stop 05/07/17 at 18:52; Status DC Hydrocortisone Sodium Succinate (SoluCORTEF INJ) 25 mg Q12HR IV PUSH Last administered on 05/09/17 09:29; Start 05/04/17 at 09:00; Stop 05/09/17 at 10: 44; Status DC Dextrose 1,000 ml @ 75 mls/hr [id number] IV Last administered on 05/04/17 08:32 ; Start 05/04/17 at 07:45; Stop 05/04/17 at 21:04; Status DC Diatrizoate Meglum/ Diatrizoate Sod ( Gastromikayla Liq) 18 ml ONCE ONCE PO Last administered on 05/04/17 14:52; Start 05/04/17 at 14:00; Stop 05/04/17 at 14:01; Status DC Metronidazole 100 ml @ 100 mls/hr Q8H IV Last administered on 05/09/17 09:29 ; Start 05/04/17 at 16:00 Cefepime HCl 2000 mg/Sodium Chloride 100 ml @ 200 mls/hr Q12H IV Last administered on 05/09/17 04:04; Start 05/04/17 at 16:00 Vancomycin HCl (VANCOMYCIN for oral use only) 500 mg Q6H PO Last administered on 05/09/17 05:18; Start 05/04/17 at 18:00 Potassium Chloride 100 ml @ 50 mls/hr Q2H IV ; Start 05/05/17 at 09:00; Stop 05/05/17 at 12:59; Status UNV Potassium Chloride 40 meq/ Sodium Chloride 520 ml @ 130 mls/hr ONCE ONCE IV- CENTRAL Last administered on 05/05/17 11:17; Start 05/05/17 at 10:30; Stop 05/05/17 at 14:29; Status DC Magnesium Sulfate/ Dextrose 100 ml @ 100 mls/hr ONCE ONCE IV Last administered on 05/05/17 11:39; Start 05/05/17 at 09:30; Stop 05/05/17 at 10 :29; Status DC Magnesium Sulfate/ Dextrose 100 ml @ 100 mls/hr NOW ONCE IV Last administered on 05/06/17 13:38; Start 05/06/17 at 13:15; Stop 05/06/17 at 14 :14; Status DC Micafungin Sodium 100 mg/Sodium Chloride 100 ml @ 100 mls/hr Q24H IV Last administered on 05/06/17 16:51; Start 05/06/17 at 16:00; Stop 05/07/17 at 14: 27; Status DC Vancomycin HCl 1000 mg/Sodium Chloride 250 ml @ 250 mls/hr ONCE ONCE IV ; Start 05/06/17 at 15:15; Stop 05/06/17 at 16:14; Status UNV Pharmacy Profile Note 0 ml @ 0 mls/hr UNSCH OTHER ; Start 05/06/17 at 15:15; Stop 05/08/17 at 22:47; Status DC Vancomycin HCl 1250 mg/Sodium Chloride 262.5 ml @ 250 mls/hr Q18H IV Last administered on 05/07/17 11:59; Start 05/06/17 at 18:00; Stop 05/07/17 at 14: 27; Status DC Miscellaneous Information SPECIFIC LAB TO BE DRAWN:VANCOMYCIN TROUGH DATE TO... ONCE ONCE .XX ; Start 05/08/17 at 23:45; Stop 05/08/17 at 23:45; Status DC Famotidine (Pepcid Inj) 20 mg Q12H IV PUSH Last administered on 05/07/17 14:24 ; Start 05/07/17 at 14:00; Stop 05/07/17 at 18:52; Status DC Insulin Human Regular (NovoLIN R SUPPLEMENTAL SCALE) 1 ACHS SQ Last administered on 05/08/17 17:00; Start 05/07/17 at 21:00 Sodium Chloride 38.5 meq/Sterile Water 1,009.625 ml @ 84 mls/hr Q12H2M IV Last administered on 05/07/17 20:29; Start 05/07/17 at 19:00; Stop 05/08/17 at 07:01 ; Status DC Pantoprazole Sodium (Protonix) 40 mg DAILY PO Last administered on 05/09/17 09 :30; Start 05/08/17 at 09:00 Albuterol Sulfate (Albuterol Neb) 2.5 mg Q2HR NEB PRN NEB dyspnea; Start at 13:45 Lactulose (Lactulose Liq) 30 ml ONCE ONCE PO Last administered on 05/08/17 14 :22; Start 05/08/17 at 13:45; Stop 05/08/17 at 13:48; Status DC Lactulose (Lactulose Liq) 30 ml DAILY PO Last administered on 05/09/17 09:29; Start 05/09/17 at 09:00 Hydrocortisone Sodium Succinate (SoluCORTEF INJ) 25 mg DAILY IV PUSH ; Start at 09:00 Quetiapine Fumarate (SEROquel) 25 mg BID@09,12 PO ; Start 05/09/17 at 12:00 A/P Assessment and Plan This is a 58-year-old alcoholic who presented with altered mental status, respiratory failure, severe sepsis and multiorgan failure and [place] [facility] 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 Decker MRI brain 05/02: No evidence of infarction or hemorrhage Repeat EEG 05/02: Severe encephalopathy 04/27: EEG Mild- mod slowing. No epileptiform features. 04/27: CT brain: No acute findings On Thiamine, MVI, folic acid Seizure precautions Continues to be confused intermittently most likely metabolic at the moment. Will give Seroquel for his agitation. COPD Nasal cannula to maintain saturations greater than equal to 92%. Currently in room air Incentive spirometry while awake As needed bronchodilator therapy every 2 hours when necessary Continue to wean off hydrocortisone. Hypernatremia, resolved Pending labs from a.m. Monitor renal function Is and Os, electrolytes replacement per protocol Renal function is improving with Cr: normalizing UOP adequate Renal- Dr. Lane. Has followed CT scan of the abdomen and pelvis 05/04 showed no evidence of hydronephrosis, masses or stones. History of hepatitis C Hepatic steatosis Currently on regular diet./Pured with Honey thickened liquids Pantoprazole for GI prophylaxis Currently on Sandostatin 50 mcg every 8 hours. Likely discontinue soon Monitor LFT's, s/p CT guided paracentesis with removal 4 on 04/27 and repeat Paracentesis at bedside on 04/30 with 4L removal. Repeat large vol paracentesis 05/05 shows cloudy ascites fluid indicating SBP On lactulose 30 cc daily recheck ammonia level in a.m. CT abd/pelvis 05/04: Ascites , steatosis of liver. SBP (spontaneous bacterial peritonitis) despite negative cultures Escherichia coli UTI Severe sepsis Continue with abx per ID ( Cefepime, oral vanco, IV flagyl) BC 05/03: NGTD, 05/02 sputum: normal resp james Urine culture: E.coli. C-diff 05/01, 05/04 and 05/08 negative Leukocytosis Normocytic anemia Monitor CBC. Does not meet transfusion thresholds at this time GI prophylaxis with Protonix and DVT prophylaxis with SCDs. Discharge Planning Patient remains intermittently confused and requires IV antibiotics so will require continued hospitalization. Discussed case with patient's nurse. Anusha Santiago MD May 09, 2017 11:11
[2017-05-09 11:36] LABS: BICARBONATE 19.6 MEQ/L (21.0-32.0); INDIRECT BILIRUBIN 2.6 MG/DL (0.0-0.8); TOTAL BILIRUBIN ADULT 4.7 MG/DL (0.2-1.0)
[2017-05-09 11:38] LABS: MAGNESIUM 1.5 MG/DL (1.5-2.5)
[2017-05-09 12:00] VITALS: BP 115/63; PULSE 82; RESP 18; TEMP 97.3; O2SAT 95
[2017-05-09] MEDS: QUEtiapine FUMARATE 25 MG TAB PO SCH (12:54)
--- NOTE | 2017-05-09 12:56 | HHI.GIFU ---
Subjective Remarks Pt is sitting up in bed, eating lunch. He is very confused and speech is slurred. History taken from nurse. She reports pt continued to have diarrhea and fecal incontinence. (Fartun Zhao) Objective Vitals I&O Vital Signs Date Time Temp Pulse Resp B/P (MAP) Pulse Ox O2 Delivery O2 Flow Rate FiO2 05/09/17 12:00 97.3 82 18 115/63 (80) 95 05/09/17 08:00 96.6 86 20 125/66 (85) 95 05/09/17 01:49 98.5 91 20 138/72 (94) 94 05/08/17 23:53 97.7 96 18 129/65 (86) 96 05/08/17 22:55 Room Air 05/08/17 16:00 95.6 96 18 113/70 (84) 96 I/O 05/08/17 05/08/17 05/08/17 05/09/17 05/09/17 05/09/17 06:59 14:59 22:59 06:59 14:59 22:59 Intake Total 850 ml 680 ml 440 ml Output Total 610 ml 350 ml 50 ml Balance 240 ml 330 ml 390 ml Intake Oral 650 ml 480 ml 240 ml IV Total 200 ml 200 ml 200 ml Output Urine Total 500 ml 300 ml Drainage Total 110 ml 50 ml 50 ml # Voids 3 # Bowel Movements 1 3 3 Laboratory Laboratory Tests Test 05/08/17 16:30 05/09/17 10:52 Stool C. difficile Toxin (PCR) NEGATIVE Stl C. difficile Toxin Epiderm 027 PRESUMPTIVE NEGATIVE Blood Urea Nitrogen 37 Creatinine 1.18 Random Glucose 140 Total Protein 6.1 Albumin 1.7 Calcium Level 7.6 Phosphorus Level 2.6 Magnesium Level 1.5 Alkaline Phosphatase 180 Aspartate Amino Transf (AST/SGOT) 130 Alanine Aminotransferase (ALT/SGPT) 64 Total Bilirubin 4.7 Direct Bilirubin 2.1 Sodium Level 139 Potassium Level 5.0 Chloride Level 112 Carbon Dioxide Level 19.6 Anion Gap 7 Estimat Glomerular Filtration Rate 62 Indirect Bilirubin 2.6 Ammonia LESS THAN 20 Date/Time Source Procedure Growth Status 05/03/17 10:10 Blood Peripheral Aerobic Blood Culture - Final NO GROWTH IN 5 DAYS Complete 05/03/17 10:10 Blood Peripheral Anaerobic Blood Culture - Final NO GROWTH IN 5 DAYS Complete 05/06/17 14:55 Fluid Peritoneal Fluid Gram Stain - Final Complete 05/06/17 14:55 Fluid Peritoneal Fluid Body Fluid Culture - Final NO GROWTH IN 72 HRS.--AEROBICALLY OR ... Complete 05/02/17 08:10 Sputum Endotracheal Gram Stain - Final Complete 05/02/17 08:10 Sputum Endotracheal Sputum Culture - Final HEAVY GROWTH NORMAL RESPIRATORY SHERYL Complete 04/26/17 20:10 Urine Random Urine Urine Culture - Final Escherichia Coli Complete Imaging Last Impressions Chest X-Ray 05/06/17 0600 Signed Impressions: Service Date/Time: April 03:33 - CONCLUSION: Persistent but improving increased interstitial markings likely related to improving edema. Carmine Saucedo MD Abdomen/Pelvis CT 05/04/17 0000 Signed Impressions: Service Date/Time: Thursday, May 04, 2017 16:12 - CONCLUSION: 1. COPD changes with minimal bilateral effusions. 2. Small cirrhotic appearing liver with diffuse fatty infiltration. 3. Diffuse high density ascites throughout the abdomen similar in appearance to previous of 04/27/17. 4. Mild diffuse small bowel thickening with no evidence of obstruction. Andrzej Loaiza MD Brain MRI 05/02/17 0000 Signed Impressions: Service Date/Time: Tuesday, May 02, 2017 13:22 - CONCLUSION: 1. No evidence of acute infarction or acute hemorrhage. 2. Diffuse confluent disseminated white matter signal abnormalities in the supratentorial brain is nonspecific in appearance and could be due to diffuse white matter disease or ischemic process. Cliff Lugo MD Abdomen Ultrasound 04/30/17 0000 Signed Impressions: Service Date/Time: Sunday, April 30, 2017 11:40 - CONCLUSION: Moderate ascites is still present. Jesus Duncan MD Paracentesis 04/27/17 1452 Signed Impressions: Service Date/Time: Thursday, April 27, 2017 15:51 - CONCLUSION: 1. One complicated CT-guided paracentesis. 2. Profound hepatic steatosis. Wallace Cordoba MD Head CT 04/27/17 0000 Signed Impressions: Service Date/Time: Thursday, April 27, 2017 15:44 - CONCLUSION: Diffuse atrophy is present. Areas of encephalomalacia involving the right temporal tip and the left orbitofrontal cortices. No evidence of acute hemorrhage or edema Jesus Duncan MD Physical Exam HEENT: Normocephalic; atraumatic; no jaundice. CHEST: CTA CARDIAC: RRR ABDOMEN: Distended, firm, nontender; (+) hepatosplenomegaly; bowel sounds are present in all four quadrants. EXTREMITIES: No edema. SKIN: Normal; no rash; no jaundice. [employer]: Confused, slurred speech (Fartun Zhao) Assessment & Plan Remarks Assessment: Diarrhea- per nurse pt continues to have diarrhea and fecal incontinence. Denies blood in stool. Of note, pt is on Lactulose. C. Diff toxin negative x 2. Octreotide. Plan for flex sigmoidoscopy tomorrow. Liver cirrhosis- Past history of ETOH abuse. CT abdomen/pelvis W/O IV contrast ( 05/04) --> COPD changes with minimal bilateral effusions. Small cirrhotic appearing liver with diffuse fatty infiltration. Diffuse high density ascites throughout the abdomen similar in appearance to previous of 04/27/17. Mild diffuse small bowel thickening with no evidence of obstruction. AST- 130 ALT-64 Alk phos-180 T bili -4.7 Ammonia- less than 20. Will add Xifaxin 550mg PO BID. Ascites- Paracentesis (05/04) 4 L could ascitic fluid removed. Abdomen remains distended. SAAG- 1.9 MELD- 18 Will add Lasix 20mg PO daily. Will continue to monitor renal function. 2gm sodium diet- pureed History of Hepatitis C- current LFTs as mentioned above. Spontaneous bacterial peritonitis, severe sepsis, COPD, hypernatremia (resolved) - per attending Plan - Flex sigmoidoscopy tomorrow - SSE x 2 in AM - NPO after MN - Obtain consents - Lasix 20mg PO daily - BMP in AM - Xifaxan 550mg PO BID - 2 gm sodium diet- pureed - Monitor labs - Further recommendations to follow based on results of above Pt seen and examined by myself and Dr. Ferro and this note is written on her behalf (Fartun Zhao) Fartun Zhao May 09, 2017 12:56 Amarilis Ferro MD May 09, 2017 17:58
[2017-05-09 16:00] VITALS: BP 127/79; PULSE 88; RESP 16; TEMP 97.3; O2SAT 97
--- NOTE | 2017-05-09 17:53 | RADRPT ---
EXAM DATE/TIME: 05/09/2017 17:16 [facility] COMPARISON: CT ABDOMEN & PELVIS W/O CONTRAST, May 04, 2017, 16:12. INDICATIONS : Ascities. MEDICAL HISTORY : Chronic obstructive pulmonary disease. Myocardial infarction. Cerebrovascular accident. Seizures. Adalid paddy. Renal disease. Liver disease. Pneumonia. ETOH abuse. Depression. Anxiety. SURGICAL HISTORY : Right hip surgery. ENCOUNTER: Subsequent ACUITY: 1 day PAIN SCORE: 3/10 LOCATION: Bilateral upper quadrant MEASUREMENTS: LIVER: 17.2 cm length COMMON DUCT: 6 mm RIGHT KIDNEY: 10.3 x 4.9 x 5.0 cm SPLEEN: 9.5 cm length FINDINGS: LIVER: Cirrhotic appearing liver without gross focal mass or intrahepatic ductal dilatation. There is a smal l amount of ascites with fluid primarily surrounding the liver and spleen. COMMON DUCT: No intraluminal mass or stone visualized. GALLBLADDER: There is gallbladder wall thickening with mild pericholecystic fluid. No stones or sonographic [place] sign. PANCREAS: The visualized portions are within normal limits. RIGHT KIDNEY: No hydronephrosis, stone or mass. SPLEEN: No focal lesion. CONCLUSION: 1. Cirrhotic appearing liver with small amount of ascites. Ascites fluid primarily along the margin o f the liver and spleen. 2. Prominent gallbladder wall with pericholecystic fluid. These findings are generally seen in the se tting of liver cirrhosis but limit sensitivity for acute cholecystitis. Wallace Cordoba MD on May 09, 2017 at 17:47 Board Certified Radiologist. This report was verified electronically.
[2017-05-09 19:39] VITALS: O2SAT 97
[2017-05-09] MEDS: RIFAXIMIN 550 MG TAB PO SCH (20:25)
[2017-05-09 20:48] VITALS: BP 130/74; PULSE 91; RESP 18; TEMP 96.6; O2SAT 97
[2017-05-09] MEDS ORDERED: POVIDONE IODINE 5% (ANTISEPSIS KIT) 4 APPLICATIONS EACH NARE PRN (22:00)
[2017-05-09] MEDS ORDERED: SODIUM CHLORID 0.9% 500 ML IV PRN (22:00)
[2017-05-09] MEDS ORDERED: CHLORHEXIDINE GLUCONATE 2 % 1 PACK (2 CLOTHS) TOPICAL PRN (22:00)
[2017-05-09] MEDS ORDERED: LACTATED RINGER'S 1000 ML IV PRN (22:00)
[2017-05-10] MEDS: VANCOMYCIN 500 MG VIAL (FOR ORAL USE ONLY) PO SCH ×4 (00:22→16:27)
[2017-05-10] MEDS: metroNIDAZOLE 500 MG INJ 100 ML IV SCH ×3 (00:22→16:27)
[2017-05-10 01:42] VITALS: BP 128/77; PULSE 95; RESP 18; TEMP 97; O2SAT 97
[2017-05-10] MEDS: CEFEPIME INJ 2,000 MG in SODIUM CHLORIDE 0.9% INJ 100 ML IV SCH (04:48)
[2017-05-10] MEDS: OCTREOTIDE INJ 50 MCG/ML AMP IV PUSH SCH ×3 (05:21→22:43)
[2017-05-10 06:52] LABS: HEMATOCRIT 30.5 % (39.0-51.0); MEAN CELL VOLUME 93.5 FL (80.0-100.0); MEAN CORPUSCULAR HEMOGLOBIN 28.6 PG (27.0-34.0); MEAN CORPUSCULAR HGB CONC 30.6 % (32.0-36.0); PLATELET COUNT 264 TH/MM3 (150-450); RED BLOOD COUNT 3.26 MIL/MM3 (4.50-5.90); RED CELL DISTRIBUTION WIDTH 17.4 % (11.6-17.2); WHITE BLOOD COUNT 38.5 TH/MM3 (4.0-11.0)
[2017-05-10 06:56] LABS: REVIEW FLAG FINAL
[2017-05-10 07:21] LABS: ALKALINE PHOSPHATASE 196 U/L (45-117); ALT (GPT) 58 U/L (12-78); ANION GAP 10 MEQ/L (5-15); AST (GOT) 74 U/L (15-37); BICARBONATE 19.5 MEQ/L (21.0-32.0); BLOOD UREA NITROGEN 36 MG/DL (7-18); CHLORIDE 113 MEQ/L (98-107); GLOMERULAR FILTRATION RATE 67 ML/MIN (>89); POTASSIUM 3.3 MEQ/L (3.5-5.1); SODIUM (NA) 142 MEQ/L (136-145); TOTAL BILIRUBIN ADULT 4.1 MG/DL (0.2-1.0)
[2017-05-10 08:00] VITALS: BP 126/84; PULSE 92; RESP 20; TEMP 96.6; O2SAT 95
[2017-05-10] MEDS: INSULIN NovoLIN REGULAR SUPPLEMENTAL SCALE SQ SCH ×4 (08:00→21:00)
[2017-05-10] MEDS: MULTIVITAMIN TAB PO SCH (08:57)
[2017-05-10] MEDS: QUEtiapine FUMARATE 25 MG TAB PO SCH ×2 (08:57→12:00)
[2017-05-10] MEDS: LACTULOSE SYRUP 20 GM/30 ML CUP PO SCH (08:57)
[2017-05-10] MEDS: FUROSEMIDE 20 MG TAB PO SCH (08:57)
[2017-05-10] MEDS: CALCIUM CARBONATE 1.25 GM (CA 500 MG) TAB PO SCH ×2 (08:57→22:42)
[2017-05-10] MEDS: PANTOPRAZOLE SOD 40 MG DELAYED RELEASE TAB PO SCH (08:57)
[2017-05-10] MEDS: THIAMINE HCL 100 MG TAB PO SCH (08:58)
[2017-05-10] MEDS: RIFAXIMIN 550 MG TAB PO SCH ×2 (08:58→22:42)
[2017-05-10] MEDS: FOLIC ACID 1 MG TAB PO SCH (08:58)
[2017-05-10] MEDS: SODIUM CHLORIDE 0.9% FLUSH 10 ML FLUSH IV FLUSH SCH ×2 (08:58→22:42)
[2017-05-10] MEDS: HYDROCORTISONE SOD SUCCINATE 100 MG VIAL IV PUSH SCH (08:58)
[2017-05-10] MEDS ORDERED: POTASSIUM CHLOR 20 MEQ PREMIX 100 ML IV SCH (09:00)
--- NOTE | 2017-05-10 11:33 | HHI.PR ---
Subjective Remarks Follow for infection and confusion Patient continues to be confused. He does move his extremities. No fever overnight. Objective Vitals Vital Signs Date Time Temp Pulse Resp B/P (MAP) Pulse Ox O2 Delivery O2 Flow Rate FiO2 05/10/17 08:00 96.6 92 20 126/84 (98) 95 05/10/17 01:42 97.0 95 18 128/77 (94) 97 05/09/17 20:48 96.6 91 18 130/74 (92) 97 05/09/17 19:39 97 05/09/17 16:00 97.3 88 16 127/79 (95) 97 05/09/17 12:00 97.3 82 18 115/63 (80) 95 I/O 05/09/17 05/09/17 05/09/17 05/10/17 05/10/17 05/10/17 07:00 15:00 23:00 07:00 15:00 23:00 Intake Total 440 ml 100 ml 800 ml 440 ml Output Total 50 ml 200 ml 50 ml Balance 390 ml 100 ml 600 ml 390 ml Intake Oral 240 ml 600 ml 240 ml IV Total 200 ml 100 ml 200 ml 200 ml Drainage Total 50 ml 200 ml 50 ml # Voids 3 5 3 # Bowel Movements 3 3 3 Result Diagram: 05/10/17 0505 05/10/17 0505 Imaging Last Impressions Liver Ultrasound 05/09/17 1000 Signed Impressions: Service Date/Time: Tuesday, May 09, 2017 17:16 - CONCLUSION: 1. Cirrhotic appearing liver with small amount of ascites. Ascites fluid primarily along the margin of the liver and spleen. 2. Prominent gallbladder wall with pericholecystic fluid. These findings are generally seen in the setting of liver cirrhosis but limit sensitivity for acute cholecystitis. Wallace Cordoba MD Chest X-Ray 05/06/17 0600 Signed Impressions: Service Date/Time: April 03:33 - CONCLUSION: Persistent but improving increased interstitial markings likely related to improving edema. Carmine Saucedo MD Abdomen/Pelvis CT 05/04/17 0000 Signed Impressions: Service Date/Time: Thursday, May 04, 2017 16:12 - CONCLUSION: 1. COPD changes with minimal bilateral effusions. 2. Small cirrhotic appearing liver with diffuse fatty infiltration. 3. Diffuse high density ascites throughout the abdomen similar in appearance to previous of 04/27/17. 4. Mild diffuse small bowel thickening with no evidence of obstruction. Andrzej Loaiza MD Brain MRI 05/02/17 0000 Signed Impressions: Service Date/Time: Tuesday, May 02, 2017 13:22 - CONCLUSION: 1. No evidence of acute infarction or acute hemorrhage. 2. Diffuse confluent disseminated white matter signal abnormalities in the supratentorial brain is nonspecific in appearance and could be due to diffuse white matter disease or ischemic process. Cliff Lugo MD Abdomen Ultrasound 04/30/17 0000 Signed Impressions: Service Date/Time: Sunday, April 30, 2017 11:40 - CONCLUSION: Moderate ascites is still present. Jesus Duncan MD Paracentesis 04/27/17 1452 Signed Impressions: Service Date/Time: Thursday, April 27, 2017 15:51 - CONCLUSION: 1. One complicated CT-guided paracentesis. 2. Profound hepatic steatosis. Wallace Cordoba MD Head CT 04/27/17 0000 Signed Impressions: Service Date/Time: Thursday, April 27, 2017 15:44 - CONCLUSION: Diffuse atrophy is present. Areas of encephalomalacia involving the right temporal tip and the left orbitofrontal cortices. No evidence of acute hemorrhage or edema Jesus Duncan MD Objective Remarks GENERAL: 61-year-old male, resting in bed in no acute distress CARDIOVASCULAR: Regular rate and rhythm S1, S2. No S4 without murmur. RESPIRATORY: Breath sounds equal bilaterally. No accessory muscle use. GASTROINTESTINAL:distended but soft. Hypoactive bowel sounds. MUSCULOSKELETAL: No significant peripheral edema. Neuro: Motor grossly intact. AAO 3. Patient remains confused. Medications and IVs Current Medications Sodium Chloride 1,000 ml @ 1,000 mls/hr Q1H IV Last administered on t 20:29; Start 04/26/17 at 17:24; Stop 04/26/17 at 18:23; Status DC Sodium Chloride (NS Flush) 2 ml UNSCH PRN IV FLUSH FLUSH AFTER USING IV ACCESS ; Start 04/26/17 at 17:30; Stop 04/27/17 at 00:54; Status DC Lorazepam (Ativan Inj) 1 mg ONCE ONCE IV PUSH ; Start 04/26/17 at 18:00; Stop 04/26/17 at 18:01; Status DC Ceftriaxone Sodium 1000 mg/ Sodium Chloride 100 ml @ 200 mls/hr ONCE ONCE IV Last administered on 04/26/17 20:34; Start 04/26/17 at 20:45; Stop 04/26/17 at 21:14; Status DC Azithromycin 500 mg/Sodium Chloride 250 ml @ 250 mls/hr ONCE ONCE IV Last administered on 04/26/17 21:15; Start 04/26/17 at 20:45; Stop 04/26/17 at 21 :44; Status DC Sodium Chloride 1,000 ml @ 1,000 mls/hr Q1H IV Last administered on 21:15; Start 04/26/17 at 20:44; Stop 04/26/17 at 21:43; Status DC Sodium Chloride 1,000 ml @ 70 mls/hr [id number] IV Last administered on 22:55; Start 04/26/17 at 22:17; Stop 04/27/17 at 09:52; Status DC Sodium Chloride (NS Flush) 2 ml UNSCH PRN IV FLUSH FLUSH AFTER USING IV ACCESS Last administered on 05/02/17 08:34; Start 04/26/17 at 22:30 Sodium Chloride (NS Flush) 2 ml BID IV FLUSH Last administered on 05/10/17 08: 58; Start 04/27/17 at 09:00 Ondansetron HCl (Zofran Inj) 4 mg Q6H PRN IVP NAUSEA OR VOMITING; Start at 22:30 Naloxone HCl (Narcan Inj) 0.4 mg UNSCH PRN IV PUSH SEE LABEL COMMENTS; Start 04/26/17 at 22:30 Senna/Docusate Sodium (Yue-Colace) 1 tab BID PO Last administered on 09:04; Start 04/27/17 at 09:00; Stop 05/08/17 at 13:43; Status DC Magnesium Hydroxide (Milk Of Magnesia Liq) 30 ml Q12H PRN PO Mild constipation ; Start 04/26/17 at 22:30 Sennosides (Senokot) 17.2 mg Q12H PRN PO Moderate constipation; Start at 22:30 Bisacodyl (Dulcolax Supp) 10 mg DAILY PRN RECTAL SEVERE CONSITIPATION; Start 04/26/17 at 22:30; Stop 05/07/17 at 19:07; Status DC Lactulose (Lactulose Liq) 30 ml DAILY PRN PO SEVERE CONSITIPATION; Start 04/26 at 22:30; Stop 05/03/17 at 19:38; Status DC Flumazenil (Romazicon Inj) 0.2 mg Q1M PRN IV PUSH SEE LABEL COMMENTS; Start at 22:30 Lorazepam (Ativan) 1 mg Q4H PRN PO CIWA 8 - 10; Start 04/26/17 at 22:30 Lorazepam (Ativan Inj) 1 mg Q4H PRN IV PUSH CIWA 8 - 10 Last administered on 01:08; Start 04/26/17 at 22:30 Lorazepam (Ativan) 2 mg Q2H PRN PO CIWA 11-14; Start 04/26/17 at 22:30 Lorazepam (Ativan Inj) 2 mg Q2H PRN IV PUSH CIWA 11-14; Start 04/26/17 at 22: 30 Lorazepam (Ativan Inj) 2 mg Q1H PRN IV PUSH CIWA 15-20; Start 04/26/17 at 22: 30 Lorazepam (Ativan Inj) 2 mg Q15M PRN IV PUSH CIWA > 20; Start 04/26/17 at 22: 30 Azithromycin (Zithromax) 250 mg DAILY PO Last administered on 05/06/17 07:49 ; Start 04/27/17 at 09:00; Stop 05/06/17 at 14:33; Status DC Ceftriaxone Sodium 1000 mg/ Sodium Chloride 100 ml @ 200 mls/hr Q24H IV ; Start 04/27/17 at 20:00; Stop 04/27/17 at 20:00; Status DC Permethrin (Nix Creme Rinse 1% Lotion) 1 applic ONCE ONCE TOPICAL Last administered on 04/27/17 04:03; Start 04/27/17 at 00:30; Stop 04/27/17 at 00 :31; Status DC Albuterol/ Ipratropium (Duoneb Neb) 1 ampule Q4HR NEB NEB Last administered on 04/30/17 23:12; Start 04/27/17 at 00:45; Stop 05/01/17 at 00:44; Status DC Multivitamins 10 ml/Folic Acid 1 mg/Sodium Chloride 510.2 ml @ 125 mls/hr Q24H IV Last administered on 04/27/17 02:16; Start 04/27/17 at 02:00; Stop 04/27 at 13:22; Status DC Thiamine HCl 100 mg/Sodium Chloride 101 ml @ 100 mls/hr Q24H IV Last administered on 04/27/17 02:16; Start 04/27/17 at 02:00; Stop 04/27/17 at 13 :22; Status DC Thiamine HCl (Vitamin B1) 100 mg DAILY PO Last administered on 05/10/17 08:58 ; Start 04/30/17 at 09:00 Calcium Carbonate (Oscal) 500 mg Q12HR PO Last administered on 05/10/17 08:57 ; Start 04/27/17 at 09:00 Sodium Chloride 500 ml @ 999 mls/hr Q31M ONCE IV Last administered on 08:15; Start 04/27/17 at 08:15; Stop 04/27/17 at 08:45; Status DC Potassium Chloride 100 ml @ 50 mls/hr Q2H IV Last administered on 04/27/17 11:31; Start 04/27/17 at 09:00; Stop 04/27/17 at 12:59; Status DC Calcium Chloride 1 gm/Sodium Chloride 110 ml @ 100 mls/hr ONCE ONCE IV Last administered on 04/27/17 11:30; Start 04/27/17 at 10:00; Stop 04/27/17 at 11 :05; Status DC Fentanyl Citrate 250 ml @ 5 mls/hr TITRATE PRN IV SEDATION Last administered on 04/30/17 17:55; Start 04/27/17 at 10:00; Stop 05/02/17 at 18:40; Status DC Propofol 100 ml @ 2.106 mls/ hr TITRATE PRN IV SEDATION; Start 04/27/17 at 10 :00; Stop 05/02/17 at 07:56; Status DC Terbutaline Sulfate (Brethine Inj) 1 mg UNSCH PRN SQ For Extravasation; Start 04/27/17 at 10:00 Sodium Chloride 1,000 ml @ 999 mls/hr BOLUS ONCE IV Last administered on 10:58; Start 04/27/17 at 10:00; Stop 04/27/17 at 11:00; Status DC Piperacillin Sod/ Tazobactam Sod 50 ml @ 100 mls/hr Q8H IV Last administered on 05/04/17 09:50; Start 04/27/17 at 10:00; Stop 05/04/17 at 15:28; Status DC Vancomycin HCl 1000 mg/Sodium Chloride 250 ml @ 250 mls/hr ONCE ONCE IV Last administered on 04/27/17 11:29; Start 04/27/17 at 10:00; Stop 04/27/17 at 10 :59; Status DC Dextrose/Sodium Chloride 1,000 ml @ 84 mls/hr [id number] IV Last administered on 04/28/17 11:12; Start 04/27/17 at 10:00; Stop 04/28/17 at 14:20; Status DC Sodium Bicarbonate (Sodium Bicarbonate 8.4% Inj) 100 meq ONCE ONCE IV PUSH Last administered on 04/27/17 11:29; Start 04/27/17 at 10:00; Stop 04/27/17 at 10:01; Status DC Etomidate (Amidate Inj) 40 mg STK-MED ONCE .ROUTE ; Start 04/27/17 at 09:51; Stop 04/27/17 at 09:52; Status DC Etomidate (Amidate Inj) 20 mg STAT ONCE IV PUSH Last administered on 10:02; Start 04/27/17 at 10:02; Stop 04/27/17 at 10:03; Status DC Sodium Chloride 1,000 ml @ 999 mls/hr BOLUS ONCE IV Last administered on 12:57; Start 04/27/17 at 12:30; Stop 04/27/17 at 13:30; Status DC Lactulose (Lactulose Liq) 30 ml TID PO Last administered on 04/28/17 11:58; Start 04/27/17 at 13:00; Stop 04/28/17 at 14:37; Status DC Famotidine (Pepcid Inj) 10 mg Q12H IV PUSH Last administered on 05/07/17 13:31 ; Start 04/27/17 at 14:00; Stop 05/07/17 at 13:48; Status DC Folic Acid (Folate) 1 mg DAILY PO Last administered on 05/10/17 08:58; Start 04/27/17 at 13:30 Multivitamins (Theragran) 1 tab DAILY PO Last administered on 05/10/17 08:57; Start 04/27/17 at 13:30 Norepinephrine Bitartrate 250 ml @ 7.5 mls/hr TITRATE PRN IV Maintain MAP > 65 mmHg Last administered on 05/02/17 05:03; Start 04/27/17 at 15:15; Stop 05/04/17 at 07:41; Status DC Albumin Human 250 ml @ 250 mls/hr Q12H IV Last administered on 04/29/17 04: 46; Start 04/27/17 at 17:00; Stop 04/29/17 at 13:00; Status DC Calcium Gluconate 1 gm/Sodium Chloride 110 ml @ 110 mls/hr ONCE ONCE IV Last administered on 04/27/17 18:37; Start 04/27/17 at 17:30; Stop 04/27/17 at 18 :29; Status DC Potassium Chloride 100 ml @ 50 mls/hr BOLUS ONCE IV Last administered on 18:03; Start 04/27/17 at 17:30; Stop 04/27/17 at 19:29; Status DC Micafungin Sodium 150 mg/Sodium Chloride 100 ml @ 100 mls/hr Q24H IV Last administered on 05/05/17 22:00; Start 04/27/17 at 22:00; Stop 05/06/17 at 14 :23; Status DC Miscellaneous Information Patient in critical care unit? Ass... [id number] .XX ; Start 04/28/17 at 00:30 Chlorhexidine Gluconate (Chlorhexidine 2% Cloth) 3 pack DAILY@04 TOPICAL Last administered on 05/02/17 04:00; Start 04/28/17 at 04:00; Stop 05/02/17 at 04 :01; Status DC Chlorhexidine Gluconate (Chlorhexidine 2% Cloth) 3 pack UNSCH PRN TOPICAL HYGIENIC CARE; Start 04/28/17 at 00:30; Stop 05/03/17 at 00:19; Status DC Sodium Chloride 1,000 ml @ 0 mls/hr Q0M ONCE IV ; Start 04/28/17 at 07:00; Stop 04/28/17 at 07:01; Status DC Potassium Chloride 100 ml @ 50 mls/hr Q2H IV ; Start 04/28/17 at 07:00; Stop 04/28/17 at 10:59; Status Cancel Potassium Chloride 100 ml @ 25 mls/hr ONCE ONCE IV Last administered on 04/28 08:00; Start 04/28/17 at 07:15; Stop 04/28/17 at 11:14; Status DC Dextrose (D50w (Vial) Inj) 50 ml UNSCH PRN IV PUSH HYPOGLYCEMIA-SEE COMMENTS; Start 04/28/17 at 07:00 Glucagon (Glucagon Inj) 1 mg UNSCH PRN OTHER HYPOGLYCEMIA-SEE COMMENTS; Start 04/28/17 at 07:00 Insulin Human Regular (NovoLIN R SUPPLEMENTAL SCALE) 1 Q4HR SQ Last administered on 05/06/17 09:19; Start 04/28/17 at 08:00; Stop 05/07/17 at 18: 52; Status DC Hydrocortisone Sodium Succinate (SoluCORTEF INJ) 50 mg Q6HR IV PUSH Last administered on 04/29/17 04:47; Start 04/28/17 at 07:00; Stop 04/29/17 at 13 :00; Status DC Vasopressin (Pitressin Inj) 20 units STK-MED ONCE .ROUTE ; Start 04/28/17 at 09 :25; Stop 04/28/17 at 09:26; Status DC Vasopressin 40 units/Dextrose 100 ml @ 6 mls/hr [id number] IV ; Start 04/28/17 at 09:27; Stop 04/28/17 at 09:38; Status DC Vasopressin 40 units/Dextrose 100 ml @ 6 mls/hr [id number] IV Last administered on 04/29/17 06:06; Start 04/28/17 at 09:45; Stop 05/02/17 at 07:56; Status DC Sodium Chloride 38.5 meq/Sodium Bicarbonate 100 meq/Sterile Water 1,000 ml @ 75 mls/hr [id number] IV ; Start 04/28/17 at 16:00; Stop 04/28/17 at 16:48; Status DC Lactulose (Lactulose Liq) 30 ml QID PO Last administered on 05/02/17 20:35; Start 04/28/17 at 18:00; Stop 05/03/17 at 19:38; Status DC Potassium Chloride 100 ml @ 25 mls/hr BOLUS ONCE IV Last administered on 15:20; Start 04/28/17 at 15:15; Stop 04/28/17 at 19:14; Status DC Rifaximin (Xifaxan) 550 mg BID PO Last administered on 05/03/17 08:44; Start 04/28/17 at 21:00; Stop 05/03/17 at 19:39; Status DC Sodium Chloride 38.5 meq/Sodium Bicarbonate 100 meq/Sterile Water 1,000 ml @ 75 mls/hr [id number] IV Last administered on 04/29/17 05:56; Start 04/28/17 at 17:00; Stop 04/29/17 at 12:52; Status DC Vancomycin HCl 1000 mg/Sodium Chloride 250 ml @ 250 mls/hr ONCE ONCE IV Last administered on 04/28/17 18:22; Start 04/28/17 at 18:00; Stop 04/28/17 at 18 :59; Status DC Calcium Gluconate 2 gm/Sodium Chloride 120 ml @ 100 mls/hr NOW IV Last administered on 04/29/17 06:06; Start 04/29/17 at 06:00; Stop 04/29/17 at 07 :11; Status DC Potassium Chloride 100 ml @ 25 mls/hr Q4H IV Last administered on 04/29/17 10:00; Start 04/29/17 at 06:00; Stop 04/29/17 at 13:59; Status DC Bumetanide (Bumex Inj) 1 mg ONCE ONCE IV PUSH Last administered on 04/29/17 13:15; Start 04/29/17 at 13:00; Stop 04/29/17 at 13:13; Status DC Hydrocortisone Sodium Succinate (SoluCORTEF INJ) 50 mg Q12HR IV PUSH Last administered on 05/03/17 20:39; Start 04/29/17 at 21:00; Stop 05/04/17 at 07 :41; Status DC Bumetanide 100 ml @ 2 mls/hr Q24H IV ; Start 04/29/17 at 15:00; Stop 04/29/17 at 15:00; Status DC Bumetanide (Bumex Inj) 1 mg Q8H IV PUSH Last administered on 05/02/17 04:54; Start 04/29/17 at 20:00; Stop 05/02/17 at 07:56; Status DC Vancomycin HCl 1000 mg/Sodium Chloride 250 ml @ 250 mls/hr ONCE ONCE IV Last administered on 04/29/17 20:02; Start 04/29/17 at 17:45; Stop 04/29/17 at 18 :44; Status DC Bumetanide (Bumex Inj) 2 mg NOW ONCE IV PUSH Last administered on 04/29/17 20:27; Start 04/29/17 at 20:00; Stop 04/29/17 at 20:01; Status DC Midazolam HCl 100 ml @ 2 mls/hr TITRATE PRN IV SEDATION; Start 04/30/17 at 13: 30; Stop 05/02/17 at 07:56; Status DC Midazolam HCl (Versed Inj) 2 mg ONCE ONCE IV PUSH Last administered on 13:52; Start 04/30/17 at 13:30; Stop 04/30/17 at 13:36; Status DC Albumin Human 50 ml @ 60 mls/hr Q12H IV Last administered on 05/07/17 18:14; Start 04/30/17 at 18:00; Stop 05/07/17 at 18:52; Status DC Octreotide Acetate (SandoSTATIN INJ) 50 mcg Q8HR IV PUSH Last administered on 05/10/17 05:21; Start 05/01/17 at 14:00 Bumetanide (Bumex Inj) 2 mg NOW ONCE IV PUSH Last administered on 05/02/17 08:34; Start 05/02/17 at 08:00; Stop 05/02/17 at 08:01; Status DC Bumetanide 100 ml @ 2 mls/hr Q24H IV ; Start 05/02/17 at 07:52; Stop 05/02/17 at 08:04; Status DC Water (Free Water) 250 ml Q8HR G-TUBE Last administered on 05/03/17 05:14; Start 05/02/17 at 08:00; Stop 05/03/17 at 10:16; Status DC Bumetanide (Bumex Inj) 1 mg BID@0900,1800 IV PUSH Last administered on 17:30; Start 05/02/17 at 18:00; Stop 05/03/17 at 08:02; Status DC Potassium Chloride 100 ml @ 50 mls/hr Q2H PRN IV For Potassium 2.8 - 3.2 mEq/ L Last administered on 05/06/17 10:24; Start 05/03/17 at 08:00; Stop at 07:09; Status DC Potassium Chloride 100 ml @ 50 mls/hr Q2H PRN IV For Potassium 2.8 - 3.2 mEq/ L Last administered on 05/05/17 09:04; Start 05/03/17 at 08:00; Stop at 07:09; Status DC Potassium Bicarb/ Potassium Chloride (K-Lyte Cl Eff) 50 meq UNSCH PRN PO For Potassium 3.3 - 3.5 mEq/L Last administered on 05/06/17 10:31; Start at 08:00; Stop 05/09/17 at 07:09; Status DC Potassium Chloride 100 ml @ 25 mls/hr UNSCH PRN IV For Potassium 3.3 - 3.5 mEq /L; Start 05/03/17 at 08:00; Stop 05/09/17 at 07:09; Status DC Potassium Chloride 100 ml @ 50 mls/hr Q2H PRN IV For Potassium 3.3 - 3.5 mEq/L ; Start 05/03/17 at 08:00; Stop 05/09/17 at 07:09; Status DC Magnesium Sulfate 4 gm/Sodium Chloride 100 ml @ 50 mls/hr UNSCH PRN IV For Magnesium 0.9 - 1.1 mg/dL Last administered on 05/04/17 06:42; Start at 08:00; Stop 05/09/17 at 07:09; Status DC Magnesium Oxide (Mag-Ox) 800 mg UNSCH PRN PO For Magnesium 1.2 - 1.6 mg/dL Last administered on 05/03/17 11:05; Start 05/03/17 at 08:00; Stop 05/09/17 at 07:09; Status DC Magnesium Sulfate 2 gm/Sodium Chloride 100 ml @ 50 mls/hr UNSCH PRN IV For Magnesium 1.2 - 1.6 mg/dL; Start 05/03/17 at 08:00; Stop 05/09/17 at 07:09; Status DC Potassium Phosphate (K-Phos) 2,000 mg Q4H PRN PO For Phosphorus < 2.5 mg/dL Last administered on 05/03/17 20:39; Start 05/03/17 at 08:00; Stop 05/09/17 at 07:09; Status DC Sodium Phosphate 30 mmol/Sodium Chloride 250 ml @ 42 mls/hr UNSCH PRN IV For Phosphorus < 2.5 mg/dL; Start 05/03/17 at 08:00; Stop 05/09/17 at 07:09; Status DC Potassium Phosphate (K-Phos) 2,000 mg UNSCH PRN PO/TUBE SEE LABEL COMMENTS; Start 05/03/17 at 08:00; Stop 05/09/17 at 07:09; Status DC Potassium Phosphate 30 mmol/ Sodium Chloride 260 ml @ 42 mls/hr UNSCH PRN IV SEE LABEL COMMENTS; Start 05/03/17 at 08:00; Stop 05/09/17 at 07:09; Status DC Water (Free Water) 300 ml Q6HR G-TUBE Last administered on 05/06/17 12:00; Start 05/03/17 at 12:00; Stop 05/07/17 at 18:52; Status DC Hydrocortisone Sodium Succinate (SoluCORTEF INJ) 25 mg Q12HR IV PUSH Last administered on 05/09/17 09:29; Start 05/04/17 at 09:00; Stop 05/09/17 at 10: 44; Status DC Dextrose 1,000 ml @ 75 mls/hr [id number] IV Last administered on 05/04/17 08:32 ; Start 05/04/17 at 07:45; Stop 05/04/17 at 21:04; Status DC Diatrizoate Meglum/ Diatrizoate Sod ( Gastromikayla Liq) 18 ml ONCE ONCE PO Last administered on 05/04/17 14:52; Start 05/04/17 at 14:00; Stop 05/04/17 at 14:01; Status DC Metronidazole 100 ml @ 100 mls/hr Q8H IV Last administered on 05/10/17 08:59 ; Start 05/04/17 at 16:00 Cefepime HCl 2000 mg/Sodium Chloride 100 ml @ 200 mls/hr Q12H IV Last administered on 05/10/17 04:48; Start 05/04/17 at 16:00 Vancomycin HCl (VANCOMYCIN for oral use only) 500 mg Q6H PO Last administered on 05/10/17 05:20; Start 05/04/17 at 18:00 Potassium Chloride 100 ml @ 50 mls/hr Q2H IV ; Start 05/05/17 at 09:00; Stop 05/05/17 at 12:59; Status UNV Potassium Chloride 40 meq/ Sodium Chloride 520 ml @ 130 mls/hr ONCE ONCE IV- CENTRAL Last administered on 05/05/17 11:17; Start 05/05/17 at 10:30; Stop 05/05/17 at 14:29; Status DC Magnesium Sulfate/ Dextrose 100 ml @ 100 mls/hr ONCE ONCE IV Last administered on 05/05/17 11:39; Start 05/05/17 at 09:30; Stop 05/05/17 at 10 :29; Status DC Magnesium Sulfate/ Dextrose 100 ml @ 100 mls/hr NOW ONCE IV Last administered on 05/06/17 13:38; Start 05/06/17 at 13:15; Stop 05/06/17 at 14 :14; Status DC Micafungin Sodium 100 mg/Sodium Chloride 100 ml @ 100 mls/hr Q24H IV Last administered on 05/06/17 16:51; Start 05/06/17 at 16:00; Stop 05/07/17 at 14: 27; Status DC Vancomycin HCl 1000 mg/Sodium Chloride 250 ml @ 250 mls/hr ONCE ONCE IV ; Start 05/06/17 at 15:15; Stop 05/06/17 at 16:14; Status UNV Pharmacy Profile Note 0 ml @ 0 mls/hr UNSCH OTHER ; Start 05/06/17 at 15:15; Stop 05/08/17 at 22:47; Status DC Vancomycin HCl 1250 mg/Sodium Chloride 262.5 ml @ 250 mls/hr Q18H IV Last administered on 05/07/17 11:59; Start 05/06/17 at 18:00; Stop 05/07/17 at 14: 27; Status DC Miscellaneous Information SPECIFIC LAB TO BE DRAWN:VANCOMYCIN TROUGH DATE TO... ONCE ONCE .XX ; Start 05/08/17 at 23:45; Stop 05/08/17 at 23:45; Status DC Famotidine (Pepcid Inj) 20 mg Q12H IV PUSH Last administered on 05/07/17 14:24 ; Start 05/07/17 at 14:00; Stop 05/07/17 at 18:52; Status DC Insulin Human Regular (NovoLIN R SUPPLEMENTAL SCALE) 1 ACHS SQ Last administered on 05/09/17 21:24; Start 05/07/17 at 21:00 Sodium Chloride 38.5 meq/Sterile Water 1,009.625 ml @ 84 mls/hr Q12H2M IV Last administered on 05/07/17 20:29; Start 05/07/17 at 19:00; Stop 05/08/17 at 07:01 ; Status DC Pantoprazole Sodium (Protonix) 40 mg DAILY PO Last administered on 05/10/17 08 :57; Start 05/08/17 at 09:00 Albuterol Sulfate (Albuterol Neb) 2.5 mg Q2HR NEB PRN NEB dyspnea; Start at 13:45 Lactulose (Lactulose Liq) 30 ml ONCE ONCE PO Last administered on 05/08/17 14 :22; Start 05/08/17 at 13:45; Stop 05/08/17 at 13:48; Status DC Lactulose (Lactulose Liq) 30 ml DAILY PO Last administered on 05/10/17 08:57; Start 05/09/17 at 09:00 Hydrocortisone Sodium Succinate (SoluCORTEF INJ) 25 mg DAILY IV PUSH Last administered on 05/10/17 08:58; Start 05/10/17 at 09:00 Quetiapine Fumarate (SEROquel) 25 mg BID@09,12 PO Last administered on 08:57; Start 05/09/17 at 12:00 Rifaximin (Xifaxan) 550 mg BID PO Last administered on 05/10/17 08:58; Start 05/09/17 at 21:00 Furosemide (Lasix) 20 mg DAILY PO Last administered on 05/10/17 08:57; Start 05/10/17 at 09:00 Lactated Ringer's 1,000 ml @ 30 mls/hr Q24H PRN IV SEE LABEL COMMENTS; Start 05/09/17 at 22:00; Stop 05/12/17 at 21:59 Sodium Chloride 500 ml @ 30 mls/hr [id number] PRN IV SEE LABEL COMMENTS; Start at 22:00; Stop 05/12/17 at 21:59 Povidone Iodine (Betadine 5% Antisepsis Kit) 1 applic CELERY PACKER PRN EACH NARE SEE LABEL COMMENTS; Start 05/09/17 at 22:00; Stop 05/12/17 at 21:59 Chlorhexidine Gluconate (Chlorhexidine 2% Cloth) 3 pack CELERY PACKER PRN TOPICAL SEE LABEL COMMENTS; Start 05/09/17 at 22:00; Stop 05/12/17 at 21:59; Status Cancel Potassium Chloride 100 ml @ 50 mls/hr Q2H IV Last administered on 05/10/17t 09 :00; Start 05/10/17 at 09:00; Stop 05/10/17 at 12:59 A/P Assessment and Plan This is a 58-year-old alcoholic who presented with altered mental status, respiratory failure, severe sepsis and multiorgan failure and was admitted to the [facility] 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 Decker MRI brain 05/02: No evidence of infarction or hemorrhage Repeat EEG 05/02: Severe encephalopathy 04/27: EEG Mild- mod slowing. No epileptiform features. 04/27: CT brain: No acute findings On Thiamine, MVI, folic acid Seizure precautions Continues to be confused intermittently most likely metabolic at the moment. She was Seroquel. COPD Nasal cannula to maintain saturations greater than equal to 92%. Currently in room air Incentive spirometry while awake As needed bronchodilator therapy every 2 hours when necessary Continue to wean off hydrocortisone. Hypernatremia, resolved Pending labs from a.m. Monitor renal function Is and Os, electrolytes replacement per protocol Renal function is improving with Cr: normalizing UOP adequate Renal- Dr. Lane. Has followed CT scan of the abdomen and pelvis 05/04 showed no evidence of hydronephrosis, masses or stones. History of hepatitis C Hepatic steatosis Currently on regular diet./Pured with Honey thickened liquids Pantoprazole for GI prophylaxis Currently on Sandostatin 50 mcg every 8 hours. Likely discontinue soon Monitor LFT's, s/p CT guided paracentesis with removal 4 on 04/27 and repeat Paracentesis at bedside on 04/30 with 4L removal. Repeat large vol paracentesis 05/05 shows cloudy ascites fluid indicating SBP On lactulose [address] abd/pelvis 05/04: Ascites , steatosis of liver. SBP (spontaneous bacterial peritonitis) despite negative cultures Escherichia coli UTI Severe sepsis Continue with abx per ID ( Cefepime, oral vanco, IV flagyl) BC 05/03: NGTD, 05/02 sputum: normal resp james Urine culture: E.coli. C-diff 05/01, 05/04 and 05/08 negative Leukocytosis Normocytic anemia Monitor CBC. Does not meet transfusion thresholds at this time GI prophylaxis with Protonix and DVT prophylaxis with SCDs. Discharge Planning Patient remains intermittently confused and requires IV antibiotics so will require continued hospitalization. Discussed case with patient's nurse. Anusha Santiago MD May 10, 2017 11:33
[2017-05-10 12:00] VITALS: BP 123/84; PULSE 101; RESP 20; TEMP 96.7; O2SAT 98
[2017-05-10] MEDS ORDERED: PHENYLEPH/NS 1000 MCG/10 ML SYR IV ONE (12:00)
[2017-05-10] MEDS ORDERED: PROPOFOL 200 MG/20 ML AMP IV ONE (12:00)
[2017-05-10] MEDS ORDERED: LIDOCAINE HCL 1% PF 5 ML SYRINGE OTHER ONE (12:00)
--- NOTE | 2017-05-10 13:44 | GIPROC ---
[facility] [address] [facility]. [facility], [id number] FLEXIBLE SIGMOIDOSCOPY PROCEDURE REPORT EXAM DATE: 05/10/2017 PATIENT NAME: Idris Goode MR #: [id number] BIRTHDATE: 1955 ORDER #: [id number] ATTENDING: Shweta Villasenor MD ASSISTANT OPERATOR: Elizabeth Solano and Susan Cordova STATUS: inpatient INDICATIONS: The patient is a 62 yr old male here for a flexible sigmoidoscopy due to iron deficiency anemia and hematochezia PROCEDURE PERFORMED: Flexible Sigmoidoscopy with biopsy MEDICATIONS: None and Per Anesthesia. ESTIMATED BLOOD LOSS: None CONSENT: The patient understands the risks and benefits of the procedure and understands that these risks include, but are not limited to: sedation, allergic reaction, infection, perforation and/or bleeding. Alternative means of evaluation and treatment include, among others: physical exam, x-rays, and/or surgical intervention. The patient elects to proceed with this endoscopic procedure. medical equipment was checked for proper function. Hand hygiene and appropriate measures for infection prevention was taken. After the risks, benefits and alternatives of the procedure were thoroughly explained, Informed consent was verified, confirmed and timeout was successfully executed by the treatment team. A digital rectal exam revealed external hemorrhoids The Pentax [id number] endoscope was introduced through the anus and advanced to the sigmoid colon. The prep was poor. The instrument was then slowly withdrawn as the colon was fully examined. COLON FINDINGS: A large circumferential polypoid shaped mass, measuring 5 X 5cm in size, with friable surfaces was found in the sigmoid colon. Multiple biopsies were performed using cold forceps. Retroflexed views revealed internal hemorrhoid The scope was then completely withdrawn from the patient and the procedure terminated. ADVERSE EVENTS: There were no complications. IMPRESSIONS: 1. Large circumferential mass, measuring 5 X 5cm in size, was found in the sigmoid colon; multiple biopsies were performed using cold forceps 2. Retroflexed views revealed internal hemorrhoid 3. Revealed external hemorrhoids RECOMMENDATIONS: 1. Await biopsy results 2. CRS referral. Oncology referral RECALL: NONE Shweta Villasenor MD eSigned: Shweta Villasenor MD 05/10/2017 1:44 PM cc:
--- NOTE | 2017-05-10 14:10 | HHI.IDPN ---
Subjective Subjective Remarks remains confused and agitated today, non cooperative afebrile on 2 L NC O2 Ascitic fluid clx is negative WBC reamin @ 38K cont to have 6 BMs/day GI to scope tomorrow Antibiotics cefepime vanco po flagyl Allergies: Coded Allergies: codeine (Unverified Allergy, Severe, N/V, 04/26/17) propoxyphene (Unverified Allergy, Severe, HIVES, 04/26/17) Objective . Vital Signs Date Time Temp Pulse Resp B/P (MAP) Pulse Ox O2 Delivery O2 Flow Rate FiO2 05/10/17 12:00 96.7 101 20 123/84 (97) 98 05/10/17 08:00 96.6 92 20 126/84 (98) 95 05/10/17 01:42 97.0 95 18 128/77 (94) 97 05/09/17 20:48 96.6 91 18 130/74 (92) 97 05/09/17 19:39 97 05/09/17 16:00 97.3 88 16 127/79 (95) 97 . Laboratory Tests Test 05/10/17 05:05 White Blood Count 38.5 TH/MM3 Red Blood Count 3.26 MIL/MM3 Hemoglobin 9.3 GM/DL Hematocrit 30.5 % Mean Corpuscular Volume 93.5 FL Mean Corpuscular Hemoglobin 28.6 PG Mean Corpuscular Hemoglobin Concent 30.6 % Red Cell Distribution Width 17.4 % Platelet Count 264 TH/MM3 Mean Platelet Volume 9.5 FL Laboratory Tests Test 05/09/17 10:52 05/10/17 05:05 Blood Urea Nitrogen 37 MG/DL 36 MG/DL Creatinine 1.18 MG/DL 1.11 MG/DL Random Glucose 140 MG/DL 68 MG/DL Total Protein 6.1 GM/DL 6.2 GM/DL Albumin 1.7 GM/DL 1.9 GM/DL Calcium Level 7.6 MG/DL 8.0 MG/DL Phosphorus Level 2.6 MG/DL Magnesium Level 1.5 MG/DL Alkaline Phosphatase 180 U/L 196 U/L Aspartate Amino Transf (AST/SGOT) 130 U/L 74 U/L Alanine Aminotransferase (ALT/SGPT) 64 U/L 58 U/L Total Bilirubin 4.7 MG/DL 4.1 MG/DL Direct Bilirubin 2.1 MG/DL Sodium Level 139 MEQ/L 142 MEQ/L Potassium Level 5.0 MEQ/L 3.3 MEQ/L Chloride Level 112 MEQ/L 113 MEQ/L Carbon Dioxide Level 19.6 MEQ/L 19.5 MEQ/L Anion Gap 7 MEQ/L 10 MEQ/L Estimat Glomerular Filtration Rate 62 ML/MIN 67 ML/MIN Indirect Bilirubin 2.6 MG/DL Ammonia LESS THAN 20 MCMOL/L Imaging Last Impressions Liver Ultrasound 05/09/17 1000 Signed Impressions: Service Date/Time: Tuesday, May 09, 2017 17:16 - CONCLUSION: 1. Cirrhotic appearing liver with small amount of ascites. Ascites fluid primarily along the margin of the liver and spleen. 2. Prominent gallbladder wall with pericholecystic fluid. These findings are generally seen in the setting of liver cirrhosis but limit sensitivity for acute cholecystitis. Wallace Cordoba MD Chest X-Ray 05/06/17 0600 Signed Impressions: Service Date/Time: April 03:33 - CONCLUSION: Persistent but improving increased interstitial markings likely related to improving edema. Carmine Saucedo MD Abdomen/Pelvis CT 05/04/17 0000 Signed Impressions: Service Date/Time: Thursday, May 04, 2017 16:12 - CONCLUSION: 1. COPD changes with minimal bilateral effusions. 2. Small cirrhotic appearing liver with diffuse fatty infiltration. 3. Diffuse high density ascites throughout the abdomen similar in appearance to previous of 04/27/17. 4. Mild diffuse small bowel thickening with no evidence of obstruction. Andrzej Loaiza MD Brain MRI 05/02/17 0000 Signed Impressions: Service Date/Time: Tuesday, May 02, 2017 13:22 - CONCLUSION: 1. No evidence of acute infarction or acute hemorrhage. 2. Diffuse confluent disseminated white matter signal abnormalities in the supratentorial brain is nonspecific in appearance and could be due to diffuse white matter disease or ischemic process. Cliff Lugo MD Abdomen Ultrasound 04/30/17 0000 Signed Impressions: Service Date/Time: Sunday, April 30, 2017 11:40 - CONCLUSION: Moderate ascites is still present. Jesus Duncan MD Paracentesis 04/27/17 1452 Signed Impressions: Service Date/Time: Thursday, April 27, 2017 15:51 - CONCLUSION: 1. One complicated CT-guided paracentesis. 2. Profound hepatic steatosis. Wallace Cordoba MD Head CT 04/27/17 0000 Signed Impressions: Service Date/Time: Thursday, April 27, 2017 15:44 - CONCLUSION: Diffuse atrophy is present. Areas of encephalomalacia involving the right temporal tip and the left orbitofrontal cortices. No evidence of acute hemorrhage or edema Jesus Duncan MD Physical Exam CONSTITUTIONAL/GENERAL: This is an adequately nourished patient, in no apparent distress. TUBES/LINES/DRAINS: SKIN: No jaundice, rashes, or lesions. Skin temperature appropriate. Not diaphoretic. EYES: Pupils equal and round and reactive. Extraocular motions intact. No scleral icterus. No injection or drainage. Fundi not examined. CARDIOVASCULAR: Regular rate and rhythm without murmurs, gallops, or rubs. No JVD. Peripheral pulses symmetric. RESPIRATORY/CHEST: Symmetric, unlabored respirations. Clear to auscultation. Breath sounds equal bilaterally. GASTROINTESTINAL: Abdomen soft, no pain to palpation, moderately distended. No hepato-splenomegaly, or palpable masses. No guarding. Bowel sounds present. draining fairly clear light yellow fluid from previous paracenthesis site LLQ GENITOURINARY: Without palpable bladder distension. Castellano catheter in place with allison urine MUSCULOSKELETAL: Extremities without clubbing, cyanosis, or edema. NEUROLOGICAL:awake, alert, easily get agitated and very confused PSYCHIATRIC: agitated non cooperative Assessment & Plan Remarks Sepsis, shock: clinically resolved critically ill, stable ARF: resolving UTI, E.coli - ziegler S Ascitis, no e/o SBP WBC low in fluid, clx negtative Acute VDRF, PNA vs ARDS (more likely) - improving infiltrates SBP clx negative so far, but cell count cw SBP Leukocytosis , leukemoid reaction: slightly better WBC Diarrhea, c.diff negative, bu clinically very suspicious for C.diff - now with documented bowel thickening on CT Pt clinically an d radiologically has c.diff colitis: new bowel wall thickening after abx exposure and sever diarrhea with leukemoid reaction - dc cefepime (sp 2wks of abx) - cont oral vanco, IV flagyl consult GI dw Eda Pittman MD May 10, 2017 14:10
--- NOTE | 2017-05-10 15:54 | PD.CONS ---
cc: Yasmany Tamez MD [facility] Service General Surgery Consult Requested By Dr. Villasenor Reason for Consult Sigmoid mass Primary Care Physician Unknown History of Present Illness This is a 62 year old male with a known past medical history of COPD, tobacco use, seizures, CVA, and alcohol abuse. The patient was brought to [email or web address] as a [facility] after having suicidal ideation. He was noted to be wheezing and evaluated. The patient was diagnosed with sepsis and LLL pneumonia. He was admitted to the Medical Surgical floor but a Halicat was called due to respiratory decline. The patient was brought to [facility] and intubated. Palliative Care had been involved in attempting to contact next of kin. Opal (patient friend [phone]) has agreed to be the Healthcare Proxy. A GI consulted was obtained for evaluation of colitis and diarrhea. A sigmoidoscopy was completed today with findings of a 5x5 cm sigmoid mass. Biopsies were obtained. A General Surgery consultation has been requested for surgical evaluation of mass. Review of Systems ROS Limitations: Clinical Condition, Altered Mental Status, Uncooperative, Poor Historian Past Family Social History Past Medical History Per records COPD Seizures CVA Past Surgical History Unknown Reported Medications Unknown Allergies: Coded Allergies: codeine (Unverified Allergy, Severe, N/V, 04/26/17) propoxyphene (Unverified Allergy, Severe, HIVES, 04/26/17) Active Ordered Medications Current Medications Medications (Trade) Dose Ordered Sig/Shanelle Route Start Time Stop Time Status Last Admin (NS Flush) 2 ml UNSCH PRN IV FLUSH 04/26/17 22:30 05/02/17 08:34 (NS Flush) 2 ml BID IV FLUSH 04/27/17 09:00 05/10/17 08:58 (Zofran Inj) 4 mg Q6H PRN IVP 04/26/17 22:30 (Narcan Inj) 0.4 mg UNSCH PRN IV PUSH 04/26/17 22:30 (Milk Of Magnesia Liq) 30 ml Q12H PRN PO 04/26/17 22:30 (Senokot) 17.2 mg Q12H PRN PO 04/26/17 22:30 (Romazicon Inj) 0.2 mg Q1M PRN IV PUSH 04/26/17 22:30 (Ativan) 1 mg Q4H PRN PO 04/26/17 22:30 (Ativan Inj) 1 mg Q4H PRN IV PUSH 04/26/17 22:30 04/27/17 01:08 (Ativan) 2 mg Q2H PRN PO 04/26/17 22:30 (Ativan Inj) 2 mg Q2H PRN IV PUSH 04/26/17 22:30 (Ativan Inj) 2 mg Q1H PRN IV PUSH 04/26/17 22:30 (Ativan Inj) 2 mg Q15M PRN IV PUSH 04/26/17 22:30 (Vitamin B1) 100 mg DAILY PO 04/30/17 09:00 05/10/17 08:58 (Oscal) 500 mg Q12HR PO 04/27/17 09:00 05/10/17 08:57 (Brethine Inj) 1 mg UNSCH PRN SQ 04/27/17 10:00 (Folate) 1 mg DAILY PO 04/27/17 13:30 05/10/17 08:58 (Theragran) 1 tab DAILY PO 04/27/17 13:30 05/10/17 08:57 Miscellaneous Information Patient in critical care unit? Ass... Q361D .XX 04/28/17 00:30 (D50w (Vial) Inj) 50 ml UNSCH PRN IV PUSH 04/28/17 07:00 (Glucagon Inj) 1 mg UNSCH PRN OTHER 04/28/17 07:00 (SandoSTATIN INJ) 50 mcg Q8HR IV PUSH 05/01/17 14:00 05/10/17 05:21 Metronidazole 100 ml @ 100 mls/hr Q8H IV 05/04/17 16:00 05/10/17 08:59 (VANCOMYCIN for oral use only) 500 mg Q6H PO 05/04/17 18:00 05/10/17 05:20 (NovoLIN R SUPPLEMENTAL SCALE) 1 ACHS SQ 05/07/17 21:00 05/09/17 21:24 (Protonix) 40 mg DAILY PO 05/08/17 09:00 05/10/17 08:57 (Albuterol Neb) 2.5 mg Q2HR NEB PRN NEB 05/08/17 13:45 (Lactulose Liq) 30 ml DAILY PO 05/09/17 09:00 05/10/17 08:57 (SoluCORTEF INJ) 25 mg DAILY IV PUSH 05/10/17 09:00 05/10/17 08:58 (SEROquel) 25 mg BID@09,12 PO 05/09/17 12:00 05/10/17 08:57 (Xifaxan) 550 mg BID PO 05/09/17 21:00 05/10/17 08:58 (Lasix) 20 mg DAILY PO 05/10/17 09:00 05/10/17 08:57 Lactated Ringer's 1,000 ml @ 30 mls/hr Q24H PRN IV 05/09/17 22:00 05/12/17 21:59 Sodium Chloride 500 ml @ 30 mls/hr [id number] PRN IV 05/09/17 22:00 05/12/17 21:59 (Betadine 5% Antisepsis Kit) 1 applic TIRE FABRIC IMPREGNATING RANGE TENDER PRN EACH NARE 05/09/17 22:00 05/12/17 21:59 Family History Unknown Social History Per records + Tobacco use + ETOH Unknown illicit drug use Patient does not have permanent residency. Physical Exam Vital Signs Vital Signs Date Time Temp Pulse Resp B/P (MAP) Pulse Ox O2 Delivery O2 Flow Rate FiO2 05/10/17 13:50 97.1 80 18 108/52 (70) 100 05/10/17 12:00 96.7 101 20 123/84 (97) 98 05/10/17 08:00 96.6 92 20 126/84 (98) 95 05/10/17 01:42 97.0 95 18 128/77 (94) 97 05/09/17 20:48 96.6 91 18 130/74 (92) 97 05/09/17 19:39 97 05/09/17 16:00 97.3 88 16 127/79 (95) 97 Physical Exam GENERAL: Confused, combative 62 year old male resting in bed. SKIN: Warm and dry. HEAD: Atraumatic. Normocephalic. EYES: Pupils equal and round. No scleral icterus. No injection or drainage. ENT: No nasal bleeding or discharge. Mucous membranes pink and moist. NECK: Trachea midline. CARDIOVASCULAR: Regular rate and rhythm. RESPIRATORY: No accessory muscle use. Clear to auscultation. Breath sounds equal bilaterally. GASTROINTESTINAL: Abdomen minimally tender; distended. Small umbilical hernia. Prior paracentesis sites with leaking clear fluid--one attached to wound management bag. MUSCULOSKELETAL: Extremities without clubbing, cyanosis, or edema. No obvious deformities. NEUROLOGICAL: Awake and alert. Left upper extremity stronger and right upper extremity. Incomprehensible noises. PSYCHIATRIC: Unable to examine at this time. Laboratory Laboratory Tests Test 05/10/17 05:05 White Blood Count 38.5 Red Blood Count 3.26 Hemoglobin 9.3 Hematocrit 30.5 Mean Corpuscular Volume 93.5 Mean Corpuscular Hemoglobin 28.6 Mean Corpuscular Hemoglobin Concent 30.6 Red Cell Distribution Width 17.4 Platelet Count 264 Mean Platelet Volume 9.5 Blood Urea Nitrogen 36 Creatinine 1.11 Random Glucose 68 Total Protein 6.2 Albumin 1.9 Calcium Level 8.0 Alkaline Phosphatase 196 Aspartate Amino Transf (AST/SGOT) 74 Alanine Aminotransferase (ALT/SGPT) 58 Total Bilirubin 4.1 Sodium Level 142 Potassium Level 3.3 Chloride Level 113 Carbon Dioxide Level 19.5 Anion Gap 10 Estimat Glomerular Filtration Rate 67 Date/Time Source Procedure Growth Status 05/03/17 10:10 Blood Peripheral Aerobic Blood Culture - Final NO GROWTH IN 5 DAYS Complete 05/03/17 10:10 Blood Peripheral Anaerobic Blood Culture - Final NO GROWTH IN 5 DAYS Complete 05/06/17 14:55 Fluid Peritoneal Fluid Gram Stain - Final Complete 05/06/17 14:55 Fluid Peritoneal Fluid Body Fluid Culture - Final NO GROWTH IN 72 HRS.--AEROBICALLY OR ... Complete 05/02/17 08:10 Sputum Endotracheal Gram Stain - Final Complete 05/02/17 08:10 Sputum Endotracheal Sputum Culture - Final HEAVY GROWTH NORMAL RESPIRATORY SHERYL Complete 04/26/17 20:10 Urine Random Urine Urine Culture - Final Escherichia Coli Complete Result Diagram: 05/10/17 0505 05/10/17 0505 Imaging Last 48 hours Impressions Liver Ultrasound 05/09/17 1000 Signed Impressions: Service Date/Time: Tuesday, May 09, 2017 17:16 - CONCLUSION: 1. Cirrhotic appearing liver with small amount of ascites. Ascites fluid primarily along the margin of the liver and spleen. 2. Prominent gallbladder wall with pericholecystic fluid. These findings are generally seen in the setting of liver cirrhosis but limit sensitivity for acute cholecystitis. Wallace Cordoba MD Assessment and Plan Assessment and Plan 62 year old male with multiple medical issues; s/p suicidal ideation; LLL pneumonia requiring intubation -S/p sigmoidoscopy--- large 5x5 cm sigmoid mass; await biopsies -Oncology also following -I had long discussed with Opal (Healthcare proxy)---- I recommend waiting for biopsy results although there is a high suspicion for cancer. I also discussed that the patient is a poor surgical candidate for the actual surgical procedure as well as recovery. If biopsy are positive for cancer--- would recommend comfort measures and Hospice Care. -Recommend Palliative Care meeting with Opal -Thank you for this consult; We will continue to follow Attending Note - Dr. Tamez Abdomen soft; no masses appreciated Multiple paracentesis sites leaking; may be ascites from liver failure vs. tumor The exam, history, and the medical decision-making described in the above note were completed with the assistance of the mid-level provider. I reviewed and agree with the findings presented. I attest that I had a [id number] encounter with the patient on the same day, and personally performed and documented my assessment and findings in the medical record. Discussed Condition With Maggy Pang Dr., Dr. May 10, 2017 15:54 Yasmany Tamez MD May 10, 2017 22:18
[2017-05-10 16:00] VITALS: BP 125/64; PULSE 90; RESP 22; TEMP 95.7; O2SAT 98
--- NOTE | 2017-05-10 17:36 | HHI.HCPN ---
Reason for visit a. To assist with evaluation and management of symptoms including: encephalopathy, dyspnea b. To assist medical decision maker(s) with: better understanding of current medical conditions; weighing benefits/burdens of medical treatment options; making medical treatment decisions. Subjective/Interval History Palliative care reconsulted today ; this patient already known to palliative, currently following this patient. Patient status post sigmoidoscopy earlier today with findings of 5 x 5 cm friable mass, concerning for cancerous process. Gen. surgery has been consulted for possible surgical intervention. Biopsies pending. Surgery notes that patient would not be a good candidate for invasive bowel surgery which could include colostomy etc. given underlying illnesses and current prolonged hospital course. Palliative care was reconsulted to assist with clarification of goals of treatment. I discussed with GI Dr Escamilla on unit , he indicates per discussions with general surgery, oncology, all specialists involved, all in agreement that given patient history and current altered status he would be appropriate for hospice and comfort services. Patient was extubated last 05/06/17 to nasal cannula. He had periods of awakeness however was noted to have fluctuating confusion with periods of being more oriented. Throughout the weekend confusion worsened. ST evaluated patient tolerated pured diet with honey thick liquids. GI was consulted for further evaluation by ID for colitis. Patient seen in room , dietary has just delivered dinner tray. He is awake babbling incoherently. Speech is garbled and very little of it is intelligible. He does not follow simple commands for me. I attempt to explore things that might be familiar with him ask him about his friend Opal, ask him if he goes by the nickname of sanjanajeanine to this he repeats "98 ", and then says "well I guess I am ", otherwise speech remains quite garbled and nonsensical he does nod his head no at times and makes many gestures with his hands. Difficult to auscultate lung and heart sounds over his ongoing garbled speech. following exam call to proxy Raf Leonardo voicemail left. Palliative will continue to follow, and attempt to reach her to further discuss conditions , goals of treatment. . Family/friend interactions ----later received call back from proxy Opal, explore with her current conditions. She is concerned that he may have diabetes or hepatitis she tells me this may influence her decision making. Explore with her patient blood glucose ranges, and that diabetes would not necessarily affect the rest of his prognosis going forward. Further review that we have no hepatitis studies, and that he has had some elevated LFTs secondary to EtOH use. She tells me that she cannot make any decisions as she would like to await pathology from biopsy. I did explore CODE STATUS and intubation status with her she further indicates that she cannot make any further decisions about this either until she is able to see him again, and has additional information from the biopsy. She indicates she is struggling to make the right decision for him. Plan to meet with her Wednesday around 2 PM to further discuss conditions, goals. Advance Directives Living Will: Never completed Health Care Surrogate: Never completed Durable Power of Junior Brand Manager: Never completed Objective Vital Signs Date Time Temp Pulse Resp B/P (MAP) Pulse Ox O2 Delivery O2 Flow Rate FiO2 05/10/17 16:00 95.7 90 22 125/64 (84) 98 05/10/17 13:50 97.1 80 18 108/52 (70) 100 05/10/17 12:00 96.7 101 20 123/84 (97) 98 05/10/17 08:00 96.6 92 20 126/84 (98) 95 05/10/17 01:42 97.0 95 18 128/77 (94) 97 05/09/17 20:48 96.6 91 18 130/74 (92) 97 05/09/17 19:39 97 Intake & Output 05/10/17 05/10/17 07:00 19:00 Intake Total 440 ml Output Total 50 ml Balance 390 ml Intake Oral 240 ml IV Total 200 ml Drainage Total 50 ml # Voids 3 # Bowel Movements 3 Physical Exam CONSTITUTIONAL/GENERAL: Chronically ill-appearing patient, awake , disoriented, garbled speech SKIN: Skin warm, dry. Chronic scaling, thickening noted to skin bilateral lower extremities especially to feet. HEAD: Atraumatic. Normocephalic. EYES: Pupils 3 mm, brisk reaction to light. No injection or drainage. Fundi not examined. CARDIOVASCULAR: Regular rate and rhythm , difficult to auscultate over loud verbalizations. faint pedal pulses. Radial pulses palpable.+ Edema bilateral upper extremities RESPIRATORY/CHEST: Symmetric unlabored respirations on room air, lungs appear clear though difficult to hear over verbalizations. Breath sounds equal bilaterally. GASTROINTESTINAL: Abdomen soft, no apparent tenderness, slightly distended. no readily palpable masses. BS normoactive NEUROLOGICAL: n awake moving all 4 extremities some spontaneously. Localizes to touch and pain. Does not follow simple commands. Verbalizing garbled sounds and gibberish words that are of no relation. Only intelligible word he repeats is "98 "and "I guess I am ". PSYCHIATRIC: Limited assessment due to clinical condition- verbalizing garbled speech, no apparent distress Diagnostic Tests Laboratory Laboratory Tests Test 05/08/17 04:10 05/08/17 16:30 05/09/17 10:52 05/10/17 05:05 White Blood Count 38.3 TH/MM3 (4.0-11.0) 38.5 TH/MM3 (4.0-11.0) Red Blood Count 3.40 MIL/MM3 (4.50-5.90) 3.26 MIL/MM3 (4.50-5.90) Hemoglobin 9.8 GM/DL (13.0-17.0) 9.3 GM/DL (13.0-17.0) Hematocrit 31.8 % (39.0-51.0) 30.5 % (39.0-51.0) Mean Corpuscular Volume 93.5 FL (80.0-100.0) 93.5 FL (80.0-100.0) Mean Corpuscular Hemoglobin 28.9 PG (27.0-34.0) 28.6 PG (27.0-34.0) Mean Corpuscular Hemoglobin Concent 31.0 % (32.0-36.0) 30.6 % (32.0-36.0) Red Cell Distribution Width 17.0 % (11.6-17.2) 17.4 % (11.6-17.2) Platelet Count 119 TH/MM3 (150-450) 264 TH/MM3 (150-450) Mean Platelet Volume 11.1 FL (7.0-11.0) 9.5 FL (7.0-11.0) Neutrophils (%) (Auto) 88.0 % (16.0-70.0) Lymphocytes (%) (Auto) 4.2 % (9.0-44.0) Monocytes (%) (Auto) 6.9 % (0.0-8.0) Eosinophils (%) (Auto) 0.5 % (0.0-4.0) Basophils (%) (Auto) 0.4 % (0.0-2.0) Neutrophils # (Auto) 33.7 TH/MM3 (1.8-7.7) Lymphocytes # (Auto) 1.6 TH/MM3 (1.0-4.8) Monocytes # (Auto) 2.7 TH/MM3 (0-0.9) Eosinophils # (Auto) 0.2 TH/MM3 (0-0.4) Basophils # (Auto) 0.1 TH/MM3 (0-0.2) CBC Comment AUTO DIFF Differential Total Cells Counted 100 Neutrophils % (Manual) 92 % (16-70) Lymphocytes % 1 % (9-44) Monocytes % 6 % (0-8) Neutrophils # (Manual) 35.6 TH/MM3 (1.8-7.7) Myelocytes 1 % (0-0) Differential Comment FINAL DIFF MANUAL Platelet Estimate LOW (NORMAL) Platelet Morphology Comment NORMAL (NORMAL) Red Cell Morphology Comment NORMAL (NORMAL) Blood Urea Nitrogen 42 MG/DL (7-18) 37 MG/DL (7-18) 36 MG/DL (7-18) Creatinine 1.36 MG/DL (0.60-1.30) 1.18 MG/DL (0.60-1.30) 1.11 MG/DL (0.60-1.30) Random Glucose 126 MG/DL (74-106) 140 MG/DL (74-106) 68 MG/DL (74-106) Total Protein 6.4 GM/DL (6.4-8.2) 6.1 GM/DL (6.4-8.2) 6.2 GM/DL (6.4-8.2) Albumin 2.3 GM/DL (3.4-5.0) 1.7 GM/DL (3.4-5.0) 1.9 GM/DL (3.4-5.0) Calcium Level 7.9 MG/DL (8.5-10.1) 7.6 MG/DL (8.5-10.1) 8.0 MG/DL (8.5-10.1) Phosphorus Level 2.2 MG/DL (2.5-4.9) 2.6 MG/DL (2.5-4.9) Magnesium Level 1.7 MG/DL (1.5-2.5) 1.5 MG/DL (1.5-2.5) Alkaline Phosphatase 200 U/L (45-117) 180 U/L (45-117) 196 U/L (45-117) Aspartate Amino Transf (AST/SGOT) 107 U/L (15-37) 130 U/L (15-37) 74 U/L (15-37) Alanine Aminotransferase (ALT/SGPT) 74 U/L (12-78) 64 U/L (12-78) 58 U/L (12-78) Total Bilirubin 6.4 MG/DL (0.2-1.0) 4.7 MG/DL (0.2-1.0) 4.1 MG/DL (0.2-1.0) Sodium Level 148 MEQ/L (136-145) 139 MEQ/L (136-145) 142 MEQ/L (136-145) Potassium Level 3.9 MEQ/L (3.5-5.1) 5.0 MEQ/L (3.5-5.1) 3.3 MEQ/L (3.5-5.1) Chloride Level 116 MEQ/L (98-107) 112 MEQ/L (98-107) 113 MEQ/L (98-107) Carbon Dioxide Level 24.1 MEQ/L (21.0-32.0) 19.6 MEQ/L (21.0-32.0) 19.5 MEQ/L (21.0-32.0) Anion Gap 8 MEQ/L (5-15) 7 MEQ/L (5-15) 10 MEQ/L (5-15) Estimat Glomerular Filtration Rate 53 ML/MIN (>89) 62 ML/MIN (>89) 67 ML/MIN (>89) Ammonia LESS THAN 10 MCMOL/L LESS THAN 20 MCMOL/L Stool C. difficile Toxin (PCR) NEGATIVE (NEGATIVE) Stl C. difficile Toxin Epiderm 027 PRESUMPTIVE NEGATIVE Direct Bilirubin 2.1 MG/DL (0.0-0.2) Indirect Bilirubin 2.6 MG/DL (0.0-0.8) Result Diagram: 05/10/17 0506 05/10/17 0501 Microbiology Microbiology Date/Time Source Procedure Growth Status 05/03/17 10:10 Blood Peripheral Aerobic Blood Culture - Final NO GROWTH IN 5 DAYS Complete 05/03/17 10:10 Blood Peripheral Anaerobic Blood Culture - Final NO GROWTH IN 5 DAYS Complete 05/06/17 14:55 Fluid Peritoneal Fluid Gram Stain - Final Complete 05/06/17 14:55 Fluid Peritoneal Fluid Body Fluid Culture - Final NO GROWTH IN 72 HRS.--AEROBICALLY OR ... Complete 05/02/17 08:10 Sputum Endotracheal Gram Stain - Final Complete 05/02/17 08:10 Sputum Endotracheal Sputum Culture - Final HEAVY GROWTH NORMAL RESPIRATORY SHERYL Complete 04/26/17 20:10 Urine Random Urine Urine Culture - Final Escherichia Coli Complete Imaging Last Impressions Liver Ultrasound 05/09/17 1000 Signed Impressions: Service Date/Time: Tuesday, May 09, 2017 17:16 - CONCLUSION: 1. Cirrhotic appearing liver with small amount of ascites. Ascites fluid primarily along the margin of the liver and spleen. 2. Prominent gallbladder wall with pericholecystic fluid. These findings are generally seen in the setting of liver cirrhosis but limit sensitivity for acute cholecystitis. Wallace Cordoba MD Chest X-Ray 05/06/17 0600 Signed Impressions: Service Date/Time: April 03:33 - CONCLUSION: Persistent but improving increased interstitial markings likely related to improving edema. Carmine Saucedo MD Abdomen/Pelvis CT 05/04/17 0000 Signed Impressions: Service Date/Time: Thursday, May 04, 2017 16:12 - CONCLUSION: 1. COPD changes with minimal bilateral effusions. 2. Small cirrhotic appearing liver with diffuse fatty infiltration. 3. Diffuse high density ascites throughout the abdomen similar in appearance to previous of 04/27/17. 4. Mild diffuse small bowel thickening with no evidence of obstruction. Andrzej Loaiza MD Brain MRI 05/02/17 0000 Signed Impressions: Service Date/Time: Tuesday, May 02, 2017 13:22 - CONCLUSION: 1. No evidence of acute infarction or acute hemorrhage. 2. Diffuse confluent disseminated white matter signal abnormalities in the supratentorial brain is nonspecific in appearance and could be due to diffuse white matter disease or ischemic process. Cliff Lugo MD Abdomen Ultrasound 04/30/17 0000 Signed Impressions: Service Date/Time: Sunday, April 30, 2017 11:40 - CONCLUSION: Moderate ascites is still present. Jesus Duncan MD Paracentesis 04/27/17 1452 Signed Impressions: Service Date/Time: Thursday, April 27, 2017 15:51 - CONCLUSION: 1. One complicated CT-guided paracentesis. 2. Profound hepatic steatosis. Wallace Cordoba MD Head CT 04/27/17 0000 Signed Impressions: Service Date/Time: Thursday, April 27, 2017 15:44 - CONCLUSION: Diffuse atrophy is present. Areas of encephalomalacia involving the right temporal tip and the left orbitofrontal cortices. No evidence of acute hemorrhage or edema Jesus Duncan MD Procedures 04/27 intubation, right IJ central line 04/28 CT-guided Paracentesis, 4 L . Assessment and Plan Disease Oriented Problem List: (1) Respiratory failure, acute (2) COPD (chronic obstructive pulmonary disease) (3) Tobacco abuse (4) Hepatic encephalopathy (5) Pneumonia (6) Severe sepsis (7) Acute kidney injury (8) Hypokalemia (9) Alcohol abuse (10) Metabolic acidosis Symptom Scale: (1) Dyspnea (2) Encephalopathy Pertinent Non-Medical Issues Psychosocial:Per EMR patient reported to be homeless though at times resides in a hotel room. Per case management record- patient reports no Social Security number or contact persons. Per prior visit ID in EMR, note a scanned ID card documenting N #[id number]. During a prior visit in EMR 2014, contacts documented a brother Edin Goode @ [address] [place] [address] [phone]--> case management notes that the patient reports brother however he was living in that mobile home with his sister in law. Multiple hospitalizations note patient homeless and no other family reported. Searches through available resources via case management this admission with no additional family to contact. Discussed with legal 05/03/17 a proceed with friend as proxy. Spiritual: Not known Legal:Patient currently intubated and sedated and unable to participate in decision-making. Not clear at this time if he will recover enough to participate in decision-making. Prior to intubation and sedation ED physician notes that patient did not have the capacity to make his own decisions. Patient previously listed a brother [Edin Goode] as a contact during past hospitalizations, however per later records/admissions he later indicated this brother . No other family contact has been listed. need to obtain [employer] report to locate next of kin; if no next of kin can be identified may need appointed /temporary legal decision-maker such as social work advantage. SSN# per prior ID card scanned in EMR: [id number].Searches through available resources via case management/financial svs this admission with no additional family to contact. Discussed with legal 05/03/17 , may proceed with friend as proxy. 05/05/17 friend and rom Joseph agrees to serve as healthcare proxy for this patient. Ethical issues impacting care:no ethical issues identified at this time Important Contacts Landlord/friend Opal Leonardo; [facility]. [phone] ritesh // office -serving as proxy as of 05/05/17 Patient previously reported a brother Edin Goode in [place] as a contact however this person during later visits was reported to be . No other family is known at this time. . Prognosis Condition is critical, Prognosis at this time guarded in terms of survival and recovery. Patient with long history of EtOH and various complications secondary to. Now with multiorgan failure requiring mechanical vent. He remains at risk for ongoing, medications and setbacks. If he does survive current acute hospitalization, he will likely have ongoing risk for further decline in complications. . Code Status: Full Code Plan * Legal decision maker:Patient currently intubated and sedated and unable to participate in decision-making. Prior to intubation and sedation ED physician notes that patient did not have the capacity to make his own decisions. Patient previously listed a brother as a contact during past hospitalizations, however per later records/admissions he later indicated this brother . 05/04/17 d/w legal dept, no return of family from [employer], may proceed w friend serving as proxy if she is willing/able . 05/05/17 -- met with friend and rom Joseph at bedside, she is willing to serve as healthcare proxy for this patient. 05/06/17-patient more alert and interactive possible he may be able to participate in decision-making in the coming days. 05/10/17 patient remains confused unable to make his own decisions. * Goals: Palliative Met with Opal, patient friend and now healthcare proxy at length 05/05 ; she wishes to take more time to think about conditions and options before any further decisions are made. I have provided her with palliative contact information, will continue to follow-up with her in the coming days. 05/10/17-- VM left for proxy Raf Leonardo //call back from her later. She indicates she is unable to make any decisions as of yet, she still needs to think about all the information. Plan to meet with her Wednesday around 2 PM to further discuss conditions, goals. * CODE STATUS: Full code by default * SYMPTOMS: --Encephalopathy/AMS-now intubated and sedated. Long history of EtOH abuse, seizures and secondary injuries. Likely multifactorial: Hepatic, renal dysfunction, sepsis, respiratory failure. repeat EEG severe encephalopathy. No sedation for several days--last week more wakeful and following commands able to medically extubate 05/06. Has continued to have episodes of confusion since that time, today very confused with gibberish speech. --Dyspnea-admitted with pneumonia, worsening respiratory status intubated-- extubated 05/06. Tolerated nasal cannula. Now tolerating room air. * Palliative care will continue to follow during hospital course as condition evolves, to assist patient/decision-maker with understanding of medical conditions, weighing benefits/burdens of treatment options, for clarification of goals of treatment. Additionally will assist with any symptoms of palliative concern Time Spent Total Floor Time (mins): 25 (Chart review, PE, discussion with GI , d/w proxy) Attestation To help prompt me to consider important information that might be impacting today's encounter and assessment, information from prior notes written by myself or my colleagues may have been "brought forward" into today's note. My signature on this note, however, is an attestation that I personally performed the exam, history, and/or decision-making noted today, and, unless otherwise indicated, the interactions with patient, family, and staff as well as the review of records all occurred today. I also attest that the listed assessment and stated plan reflect my best clinical judgment today based on the combination of historical information, prior notes, and today's exam/ interactions. When time spent is documented, it refers only to time spent today by the signer, or if indicated, combined time spent today by collaborating physician/nurse practitioner. Liliam Shell May 10, 2017 17:36
[2017-05-10 20:00] VITALS: BP 103/78; PULSE 96; RESP 20; TEMP 98; O2SAT 99
--- NOTE | 2017-05-10 23:13 | MB ---
cc: CASSIE VILLASENOR MD,BATSHEVA Carter M.D. DATE OF CONSULTATION: 05/10/2017 REASON FOR CONSULTATION: Consult requested by Dr. Villasenor for evaluation of sigmoid colon mass. HISTORY OF PRESENT ILLNESS Idris is a 62-year-old male. He is unable to give any history. He has dysarthria and he is confused. He appears to have encephalopathy. He was admitted to the hospital several weeks ago with suicidal ideation and was Dwyer Acted. The patient subsequently went into respiratory distress and was found to have pneumonia and sepsis. He was intubated. He was successfully extubated. He has developed diarrhea. GI was consulted. The patient underwent sigmoidoscopy today by Dr. Villasenor. He found a 5 x 5 cm fungating mass in the sigmoid colon suspicious for malignancy. Multiple biopsies were obtained. General surgery was consulted and I have been asked to see him for further evaluation. The patient is unable to give any history. REVIEW OF SYSTEMS: Not possible due to patient's change in mental status. PAST MEDICAL HISTORY: COPD, seizure disorder, CVA, anxiety, depression, alcoholism, history of subdural hematoma. PAST SURGICAL HISTORY Nothing listed. ALLERGIES CODEINE PROPOXYPHENE MEDICATIONS Prior to coming to the hospital. None reported. FAMILY HISTORY: Unobtainable. SOCIAL HISTORY: Unobtainable. PHYSICAL EXAMINATION: The patient is a well-developed, dysarthric male. VITAL SIGNS: Temperature 95.7, heart rate 90, blood pressure 125/64. HEENT: PERRLA, EOMI. NECK: No lymphadenopathy noted. LUNGS: No wheezing, rhonchi, rales. HEART: Regular rate and rhythm. ABDOMEN: Soft, somewhat distended. Bowel sounds are equal. EXTREMITIES: No pedal edema. NEUROLOGIC: The patient is awake but disoriented. SKIN: No significant lesions noted. ASSESSMENT 1. 5 x 5 cm fungating sigmoid colon mass highly suspicious for malignancy. Pathology report is pending. 2. Alcoholism 3. COPD. 4. History of seizure disorder. 5. Anxiety disorder. 6. Depression. PLAN: I have reviewed his available records. Unfortunately the patient is very confused and disoriented. Unable to participate in the conversation, he keeps saying "discharge, discharge." General surgery has been consulted. I did discuss with nurse practitioner, Ms. Ellis, stated that Dr. Tamez will see the patient later today and will make the decision. The CAT scan of abdomen and pelvis does not show any metastasis. In my opinion the patient is a very poor candidate for any treatment due to his poor performance status and neurological status. Palliative care team has been involved. They have been reconsulted to find the next of kin. Certainly no chemotherapy is recommended since we do not have the surgical findings. I am not sure whether Dr. Tamez will offer surgery. I have discussed the case with Dr. Villasenor. Further recommendations based on his hospital stay. MD TAE Springer/DAO /5:16 PM /10:59 PM MTDD
[2017-05-11] VITALS: BP 134/68; PULSE 100; RESP 22; TEMP 97.8; O2SAT 99
[2017-05-11] MEDS: LORazepam 1 MG TAB PO PRN (00:30)
[2017-05-11] MEDS: metroNIDAZOLE 500 MG INJ 100 ML IV SCH (00:30)
[2017-05-11] MEDS: VANCOMYCIN 500 MG VIAL (FOR ORAL USE ONLY) PO SCH ×2 (00:30→04:54)
[2017-05-11 04:00] VITALS: BP 120/69; PULSE 91; RESP 20; TEMP 97.6; O2SAT 97
[2017-05-11] MEDS: OCTREOTIDE INJ 50 MCG/ML AMP IV PUSH SCH ×3 (04:53→21:41)
[2017-05-11 08:00] VITALS: BP 132/75; PULSE 101; RESP 17; TEMP 97.2; O2SAT 97
[2017-05-11] MEDS: INSULIN NovoLIN REGULAR SUPPLEMENTAL SCALE SQ SCH ×4 (08:00→20:49)
[2017-05-11] MEDS: PANTOPRAZOLE SOD 40 MG DELAYED RELEASE TAB PO SCH (09:00)
[2017-05-11] MEDS: THIAMINE HCL 100 MG TAB PO SCH (09:00)
[2017-05-11] MEDS: CALCIUM CARBONATE 1.25 GM (CA 500 MG) TAB PO SCH ×2 (09:00→21:41)
[2017-05-11] MEDS: HYDROCORTISONE SOD SUCCINATE 100 MG VIAL IV PUSH SCH (09:00)
[2017-05-11] MEDS: SODIUM CHLORIDE 0.9% FLUSH 10 ML FLUSH IV FLUSH SCH ×2 (09:00→21:41)
[2017-05-11] MEDS: FOLIC ACID 1 MG TAB PO SCH (09:00)
[2017-05-11] MEDS: FUROSEMIDE 20 MG TAB PO SCH (09:00)
[2017-05-11] MEDS: MULTIVITAMIN TAB PO SCH (09:00)
[2017-05-11] MEDS: LACTULOSE SYRUP 20 GM/30 ML CUP PO SCH (09:00)
--- NOTE | 2017-05-11 11:13 | HHI.PR ---
cc: Yasmany Tamez MD Subjective Subjective Notes Mumbled speech RN at bedside Objective Vitals/I&O Vital Signs Date Time Temp Pulse Resp B/P (MAP) Pulse Ox O2 Delivery O2 Flow Rate FiO2 05/11/17 08:00 97.2 101 17 132/75 (94) 97 05/08/17 22:55 Room Air 05/08/17 10:03 2.00 05/07/17 20:47 21 Labs Laboratory Tests Test 05/11/17 07:02 Date/Time Source Procedure Growth Status 05/03/17 10:10 Blood Peripheral Aerobic Blood Culture - Final NO GROWTH IN 5 DAYS Complete 05/03/17 10:10 Blood Peripheral Anaerobic Blood Culture - Final NO GROWTH IN 5 DAYS Complete 05/06/17 14:55 Fluid Peritoneal Fluid Gram Stain - Final Complete 05/06/17 14:55 Fluid Peritoneal Fluid Body Fluid Culture - Final NO GROWTH IN 72 HRS.--AEROBICALLY OR ... Complete 05/02/17 08:10 Sputum Endotracheal Gram Stain - Final Complete 05/02/17 08:10 Sputum Endotracheal Sputum Culture - Final HEAVY GROWTH NORMAL RESPIRATORY SHERYL Complete 04/26/17 20:10 Urine Random Urine Urine Culture - Final Escherichia Coli Complete Radiology Last 48 hours Impressions Liver Ultrasound 05/09/17 1000 Signed Impressions: Service Date/Time: Tuesday, May 09, 2017 17:16 - CONCLUSION: 1. Cirrhotic appearing liver with small amount of ascites. Ascites fluid primarily along the margin of the liver and spleen. 2. Prominent gallbladder wall with pericholecystic fluid. These findings are generally seen in the setting of liver cirrhosis but limit sensitivity for acute cholecystitis. Wallace Cordoba MD Cardiovascular: Regular Lungs: Clear Abdomen: Other (obsee abdomen; prior paracentesis sites with clear drainage leaking ) Extremities: No edema A/P Assessment and Plan 62 year old male with multiple medical and social problems; with 5x5 cm sigmoid mass -Await biopsies -Palliative care meeting tomorrow at 2pm with Opal (healthcare proxy) -Patient remains an extremely poor candidate Attending Note - Dr. Tamez As above Abdomen is soft and nontender The exam, history, and the medical decision-making described in the above note were completed with the assistance of the mid-level provider. I reviewed and agree with the findings presented. I attest that I had a [id number] encounter with the patient on the same day, and personally performed and documented my assessment and findings in the medical record. Maggy Ellis May 11, 2017 11:13 Yasmany Tamez MD May 11, 2017 15:33
[2017-05-11 12:00] VITALS: BP 152/67; PULSE 105; RESP 19; TEMP 96.2; O2SAT 99
--- NOTE | 2017-05-11 12:08 | PD.ONC.PN ---
Subjective Subjective Remarks Afebrile overnight. Patient non-verbal. No reported overnight events. Objective Data Date Time Temp Pulse Resp B/P (MAP) Pulse Ox O2 Delivery O2 Flow Rate FiO2 05/11/17 08:00 97.2 101 17 132/75 (94) 97 05/11/17 04:00 97.6 91 20 120/69 (86) 97 05/11/17 00:00 97.8 100 22 134/68 (90) 99 05/10/17 20:00 98.0 96 20 103/78 (86) 99 05/10/17 16:00 95.7 90 22 125/64 (84) 98 05/10/17 13:50 97.1 80 18 108/52 (70) 100 05/11/17 05/11/17 05/11/17 07:00 15:00 23:00 Output Total 50 ml Balance -50 ml Result Diagram: 05/10/17 0505 05/10/17 0505 Laboratory Results Laboratory Tests Test 05/11/17 07:02 Administered Medications Medications (Trade) Dose Ordered Sig/Shanelle Route PRN Reason Start Time Stop Time Status Last Admin Dose Admin Sodium Chloride (NS Flush) 2 ml UNSCH PRN IV FLUSH FLUSH AFTER USING IV ACCESS 04/26/17 22:30 05/02/17 08:34 Sodium Chloride (NS Flush) 2 ml BID IV FLUSH 04/27/17 09:00 05/10/17 22:42 Lorazepam (Ativan) 1 mg Q4H PRN PO CIWA 8 - 10 04/26/17 22:30 05/11/17 00:30 Lorazepam (Ativan Inj) 1 mg Q4H PRN IV PUSH CIWA 8 - 10 04/26/17 22:30 04/27/17 01:08 Thiamine HCl (Vitamin B1) 100 mg DAILY PO 04/30/17 09:00 05/10/17 08:58 Calcium Carbonate (Oscal) 500 mg Q12HR PO 04/27/17 09:00 05/10/17 22:42 Folic Acid (Folate) 1 mg DAILY PO 04/27/17 13:30 05/10/17 08:58 Multivitamins (Theragran) 1 tab DAILY PO 04/27/17 13:30 05/10/17 08:57 Octreotide Acetate (SandoSTATIN INJ) 50 mcg Q8HR IV PUSH 05/01/17 14:00 05/10/17 22:43 Insulin Human Regular (NovoLIN R SUPPLEMENTAL SCALE) 1 ACHS SQ 05/07/17 21:00 05/09/17 21:24 Pantoprazole Sodium (Protonix) 40 mg DAILY PO 05/08/17 09:00 05/10/17 08:57 Lactulose (Lactulose Liq) 30 ml DAILY PO 05/09/17 09:00 05/10/17 08:57 Hydrocortisone Sodium Succinate (SoluCORTEF INJ) 25 mg DAILY IV PUSH 05/10/17 09:00 05/10/17 08:58 Quetiapine Fumarate (SEROquel) 25 mg BID@,12 PO 05/09/17 12:00 05/10/17 08:57 Rifaximin (Xifaxan) 550 mg BID PO 05/09/17 21:00 05/10/17 22:42 Furosemide (Lasix) 20 mg DAILY PO 05/10/17 09:00 05/10/17 08:57 Objective Remarks GENERAL: Middle aged male lying in bed mumbling incoherently. SKIN: Warm and dry. HEAD: Normocephalic. EYES: No injection or drainage. NECK: Supple, trachea midline. CARDIOVASCULAR: +S1/S2 RESPIRATORY: anterior mcgrath clear. GASTROINTESTINAL: Abdomen soft, non-distended. no grimace to palpation. EXTREMITIES: No cyanosis NEUROLOGICAL: awake. non-verbal. does not follow commands. Assessment/Plan Problem List: (1) sigmoid colon mass Plan: 05/11: patient with very poor performance status and unlikely to tolerate any treatment. will await family meeting with palliative care. --s/p sigmoidoscopy --> 5 x 5 cm fungating mass in the sigmoid colon suspicious for malignancy. Multiple biopsies were obtained. -- General surgery following --patient's power of prosecuting attorney, Opal will meet with palliative care on Wednesday. --CT ab/pelvis: no metastasis. --patient is a very poor candidate for any treatment due to his poor performance status and neurological status. Assessment 62y/o male with newly found sigmoid colon mass. h/o COPD, seizure disorder, CVA, anxiety, depression, alcoholism, history of subdural hematoma. Attending Statement The exam, history, and the medical decision-making described in the above note were completed with the assistance of the mid-level provider. I reviewed and agree with the findings presented. I attest that I had a [id number] encounter with the patient on the same day, and personally performed and documented my assessment and findings in the medical record. No new c/o path is pending. poor candidate for any treatment if colon ca is confirmed. palliative care to meet with family/career advisor to make the decision. Koki Cartwright May 11, 2017 12:08 Rodri Martines MD May 11, 2017 17:52
--- NOTE | 2017-05-11 13:03 | HHI.IDPN ---
Subjective Subjective Remarks afebrile confused and agitated flex sig showed large circumferential sigmoid mass No pseudomembranes WBC stays high, no fever cont to have diarrhea Antibiotics vanco po flagyl Allergies: Coded Allergies: codeine (Unverified Allergy, Severe, N/V, 04/26/17) propoxyphene (Unverified Allergy, Severe, HIVES, 04/26/17) Objective . Vital Signs Date Time Temp Pulse Resp B/P (MAP) Pulse Ox O2 Delivery O2 Flow Rate FiO2 05/11/17 08:00 97.2 101 17 132/75 (94) 97 05/11/17 04:00 97.6 91 20 120/69 (86) 97 05/11/17 00:00 97.8 100 22 134/68 (90) 99 05/10/17 20:00 98.0 96 20 103/78 (86) 99 05/10/17 16:00 95.7 90 22 125/64 (84) 98 05/10/17 13:50 97.1 80 18 108/52 (70) 100 . Laboratory Tests Test 05/10/17 05:05 White Blood Count 38.5 TH/MM3 Red Blood Count 3.26 MIL/MM3 Hemoglobin 9.3 GM/DL Hematocrit 30.5 % Mean Corpuscular Volume 93.5 FL Mean Corpuscular Hemoglobin 28.6 PG Mean Corpuscular Hemoglobin Concent 30.6 % Red Cell Distribution Width 17.4 % Platelet Count 264 TH/MM3 Mean Platelet Volume 9.5 FL Laboratory Tests Test 05/10/17 05:05 Blood Urea Nitrogen 36 MG/DL Creatinine 1.11 MG/DL Random Glucose 68 MG/DL Total Protein 6.2 GM/DL Albumin 1.9 GM/DL Calcium Level 8.0 MG/DL Alkaline Phosphatase 196 U/L Aspartate Amino Transf (AST/SGOT) 74 U/L Alanine Aminotransferase (ALT/SGPT) 58 U/L Total Bilirubin 4.1 MG/DL Sodium Level 142 MEQ/L Potassium Level 3.3 MEQ/L Chloride Level 113 MEQ/L Carbon Dioxide Level 19.5 MEQ/L Anion Gap 10 MEQ/L Estimat Glomerular Filtration Rate 67 ML/MIN Imaging Last Impressions Liver Ultrasound 05/09/17 1000 Signed Impressions: Service Date/Time: Tuesday, May 09, 2017 17:16 - CONCLUSION: 1. Cirrhotic appearing liver with small amount of ascites. Ascites fluid primarily along the margin of the liver and spleen. 2. Prominent gallbladder wall with pericholecystic fluid. These findings are generally seen in the setting of liver cirrhosis but limit sensitivity for acute cholecystitis. Wallace Cordoba MD Chest X-Ray 05/06/17 0600 Signed Impressions: Service Date/Time: April 03:33 - CONCLUSION: Persistent but improving increased interstitial markings likely related to improving edema. Carmine Saucedo MD Abdomen/Pelvis CT 05/04/17 0000 Signed Impressions: Service Date/Time: Thursday, May 04, 2017 16:12 - CONCLUSION: 1. COPD changes with minimal bilateral effusions. 2. Small cirrhotic appearing liver with diffuse fatty infiltration. 3. Diffuse high density ascites throughout the abdomen similar in appearance to previous of 04/27/17. 4. Mild diffuse small bowel thickening with no evidence of obstruction. Andrzej Loaiza MD Brain MRI 05/02/17 0000 Signed Impressions: Service Date/Time: Tuesday, May 02, 2017 13:22 - CONCLUSION: 1. No evidence of acute infarction or acute hemorrhage. 2. Diffuse confluent disseminated white matter signal abnormalities in the supratentorial brain is nonspecific in appearance and could be due to diffuse white matter disease or ischemic process. Cliff Lugo MD Abdomen Ultrasound 04/30/17 0000 Signed Impressions: Service Date/Time: Sunday, April 30, 2017 11:40 - CONCLUSION: Moderate ascites is still present. Jesus Duncan MD Paracentesis 04/27/17 1452 Signed Impressions: Service Date/Time: Thursday, April 27, 2017 15:51 - CONCLUSION: 1. One complicated CT-guided paracentesis. 2. Profound hepatic steatosis. Wallace Cordoba MD Head CT 04/27/17 0000 Signed Impressions: Service Date/Time: Thursday, April 27, 2017 15:44 - CONCLUSION: Diffuse atrophy is present. Areas of encephalomalacia involving the right temporal tip and the left orbitofrontal cortices. No evidence of acute hemorrhage or edema Jesus Duncan MD Physical Exam CONSTITUTIONAL/GENERAL: This is an adequately nourished patient, in no apparent distress. TUBES/LINES/DRAINS: SKIN: No jaundice, rashes, or lesions. Skin temperature appropriate. Not diaphoretic. EYES: Pupils equal and round and reactive. Extraocular motions intact. No scleral icterus. No injection or drainage. Fundi not examined. CARDIOVASCULAR: Regular rate and rhythm without murmurs, gallops, or rubs. No JVD. Peripheral pulses symmetric. RESPIRATORY/CHEST: Symmetric, unlabored respirations. Clear to auscultation. Breath sounds equal bilaterally. GASTROINTESTINAL: Abdomen soft, no pain to palpation, moderately distended. No hepato-splenomegaly, or palpable masses. No guarding. Bowel sounds present. draining fairly clear light yellow fluid from previous paracenthesis site LLQ and another draining site from RLQ with multiple 4x4 s sturated with odorless seorus fluid GENITOURINARY: Without palpable bladder distension. MUSCULOSKELETAL: Extremities without clubbing, cyanosis, + tarce edema. NEUROLOGICAL:awake, alert, easily get agitated and very confused PSYCHIATRIC: calm taod, but non cooperative and confused Assessment & Plan Remarks Sepsis, shock: clinically resolved critically ill, stable ARF: resolving UTI, E.coli - zielger S Ascitis, no e/o SBP WBC low in fluid, clx negtative Acute VDRF, PNA vs ARDS (more likely) - improving infiltrates SBP clx negative so far, but cell count cw SBP Leukocytosis , leukemoid reaction: slightly better WBC Diarrhea, c.diff negative, bu clinically very suspicious for C.diff No spseudomembrannes on flex sig. + Malignant appearing mass if sigmoid Persistent leukocytosis - jacky 2/2 malignancy - dc oral vanco, IV flagyl - monitor WBC Eda Hogde MD May 11, 2017 13:03
--- NOTE | 2017-05-11 13:43 | HHI.PR ---
Subjective Remarks f/u mental status Patient continues to be confused. Otherwise no other events. He remains afebrile. Patient had a sigmoidoscopy yesterday in which patient had a colonic mass. Objective Vitals Vital Signs Date Time Temp Pulse Resp B/P (MAP) Pulse Ox O2 Delivery O2 Flow Rate FiO2 05/11/17 12:00 96.2 105 19 152/67 (95) 99 05/11/17 08:00 97.2 101 17 132/75 (94) 97 05/11/17 04:00 97.6 91 20 120/69 (86) 97 05/11/17 00:00 97.8 100 22 134/68 (90) 99 05/10/17 20:00 98.0 96 20 103/78 (86) 99 05/10/17 16:00 95.7 90 22 125/64 (84) 98 05/10/17 13:50 97.1 80 18 108/52 (70) 100 I/O 05/10/17 05/10/17 05/10/17 05/11/17 05/11/17 05/11/17 07:00 15:00 23:00 07:00 15:00 23:00 Intake Total 440 ml 200 ml 340 ml Output Total 50 ml 50 ml Balance 390 ml 200 ml 340 ml -50 ml Intake Oral 240 ml 240 ml IV Total 200 ml 200 ml 100 ml Output Urine Total 50 ml Drainage Total 50 ml # Voids 3 4 # Bowel Movements 3 3 2 Result Diagram: 05/10/17 0505 05/10/17 0505 Objective Remarks GENERAL: 61-year-old male, resting in bed in no acute distress CARDIOVASCULAR: Regular rate and rhythm S1, S2. No S4 without murmur. RESPIRATORY: Breath sounds equal bilaterally. No accessory muscle use. GASTROINTESTINAL:distended but soft. Hypoactive bowel sounds. MUSCULOSKELETAL: No significant peripheral edema. Neuro: remains confused. grossly moves extremities. Medications and IVs Current Medications Sodium Chloride 1,000 ml @ 1,000 mls/hr Q1H IV Last administered on t 20:29; Start 04/26/17 at 17:24; Stop 04/26/17 at 18:23; Status DC Sodium Chloride (NS Flush) 2 ml UNSCH PRN IV FLUSH FLUSH AFTER USING IV ACCESS ; Start 04/26/17 at 17:30; Stop 04/27/17 at 00:54; Status DC Lorazepam (Ativan Inj) 1 mg ONCE ONCE IV PUSH ; Start 04/26/17 at 18:00; Stop 04/26/17 at 18:01; Status DC Ceftriaxone Sodium 1000 mg/ Sodium Chloride 100 ml @ 200 mls/hr ONCE ONCE IV Last administered on 04/26/17 20:34; Start 04/26/17 at 20:45; Stop 04/26/17 at 21:14; Status DC Azithromycin 500 mg/Sodium Chloride 250 ml @ 250 mls/hr ONCE ONCE IV Last administered on 04/26/17 21:15; Start 04/26/17 at 20:45; Stop 04/26/17 at 21 :44; Status DC Sodium Chloride 1,000 ml @ 1,000 mls/hr Q1H IV Last administered on 21:15; Start 04/26/17 at 20:44; Stop 04/26/17 at 21:43; Status DC Sodium Chloride 1,000 ml @ 70 mls/hr [id number] IV Last administered on 22:55; Start 04/26/17 at 22:17; Stop 04/27/17 at 09:52; Status DC Sodium Chloride (NS Flush) 2 ml UNSCH PRN IV FLUSH FLUSH AFTER USING IV ACCESS Last administered on 05/02/17 08:34; Start 04/26/17 at 22:30 Sodium Chloride (NS Flush) 2 ml BID IV FLUSH Last administered on 05/10/17 22: 42; Start 04/27/17 at 09:00 Ondansetron HCl (Zofran Inj) 4 mg Q6H PRN IVP NAUSEA OR VOMITING; Start at 22:30 Naloxone HCl (Narcan Inj) 0.4 mg UNSCH PRN IV PUSH SEE LABEL COMMENTS; Start 04/26/17 at 22:30 Senna/Docusate Sodium (Yue-Colace) 1 tab BID PO Last administered on 09:04; Start 04/27/17 at 09:00; Stop 05/08/17 at 13:43; Status DC Magnesium Hydroxide (Milk Of Magnesia Liq) 30 ml Q12H PRN PO Mild constipation ; Start 04/26/17 at 22:30 Sennosides (Senokot) 17.2 mg Q12H PRN PO Moderate constipation; Start at 22:30 Bisacodyl (Dulcolax Supp) 10 mg DAILY PRN RECTAL SEVERE CONSITIPATION; Start 04/26/17 at 22:30; Stop 05/07/17 at 19:07; Status DC Lactulose (Lactulose Liq) 30 ml DAILY PRN PO SEVERE CONSITIPATION; Start 04/26 at 22:30; Stop 05/03/17 at 19:38; Status DC Flumazenil (Romazicon Inj) 0.2 mg Q1M PRN IV PUSH SEE LABEL COMMENTS; Start at 22:30 Lorazepam (Ativan) 1 mg Q4H PRN PO CIWA 8 - 10 Last administered on 05/11/17 00:30; Start 04/26/17 at 22:30 Lorazepam (Ativan Inj) 1 mg Q4H PRN IV PUSH CIWA 8 - 10 Last administered on 01:08; Start 04/26/17 at 22:30 Lorazepam (Ativan) 2 mg Q2H PRN PO CIWA 11-14; Start 04/26/17 at 22:30 Lorazepam (Ativan Inj) 2 mg Q2H PRN IV PUSH CIWA 11-14; Start 04/26/17 at 22: 30 Lorazepam (Ativan Inj) 2 mg Q1H PRN IV PUSH CIWA 15-20; Start 04/26/17 at 22: 30 Lorazepam (Ativan Inj) 2 mg Q15M PRN IV PUSH CIWA > 20; Start 04/26/17 at 22: 30 Azithromycin (Zithromax) 250 mg DAILY PO Last administered on 05/06/17 07:49 ; Start 04/27/17 at 09:00; Stop 05/06/17 at 14:33; Status DC Ceftriaxone Sodium 1000 mg/ Sodium Chloride 100 ml @ 200 mls/hr Q24H IV ; Start 04/27/17 at 20:00; Stop 04/27/17 at 20:00; Status DC Permethrin (Nix Creme Rinse 1% Lotion) 1 applic ONCE ONCE TOPICAL Last administered on 04/27/17 04:03; Start 04/27/17 at 00:30; Stop 04/27/17 at 00 :31; Status DC Albuterol/ Ipratropium (Duoneb Neb) 1 ampule Q4HR NEB NEB Last administered on 04/30/17 23:12; Start 04/27/17 at 00:45; Stop 05/01/17 at 00:44; Status DC Multivitamins 10 ml/Folic Acid 1 mg/Sodium Chloride 510.2 ml @ 125 mls/hr Q24H IV Last administered on 04/27/17 02:16; Start 04/27/17 at 02:00; Stop 04/27 at 13:22; Status DC Thiamine HCl 100 mg/Sodium Chloride 101 ml @ 100 mls/hr Q24H IV Last administered on 04/27/17 02:16; Start 04/27/17 at 02:00; Stop 04/27/17 at 13 :22; Status DC Thiamine HCl (Vitamin B1) 100 mg DAILY PO Last administered on 05/10/17 08:58 ; Start 04/30/17 at 09:00 Calcium Carbonate (Oscal) 500 mg Q12HR PO Last administered on 05/10/17 22:42 ; Start 04/27/17 at 09:00 Sodium Chloride 500 ml @ 999 mls/hr Q31M ONCE IV Last administered on 08:15; Start 04/27/17 at 08:15; Stop 04/27/17 at 08:45; Status DC Potassium Chloride 100 ml @ 50 mls/hr Q2H IV Last administered on 04/27/17 11:31; Start 04/27/17 at 09:00; Stop 04/27/17 at 12:59; Status DC Calcium Chloride 1 gm/Sodium Chloride 110 ml @ 100 mls/hr ONCE ONCE IV Last administered on 04/27/17 11:30; Start 04/27/17 at 10:00; Stop 04/27/17 at 11 :05; Status DC Fentanyl Citrate 250 ml @ 5 mls/hr TITRATE PRN IV SEDATION Last administered on 04/30/17 17:55; Start 04/27/17 at 10:00; Stop 05/02/17 at 18:40; Status DC Propofol 100 ml @ 2.106 mls/ hr TITRATE PRN IV SEDATION; Start 04/27/17 at 10 :00; Stop 05/02/17 at 07:56; Status DC Terbutaline Sulfate (Brethine Inj) 1 mg UNSCH PRN SQ For Extravasation; Start 04/27/17 at 10:00 Sodium Chloride 1,000 ml @ 999 mls/hr BOLUS ONCE IV Last administered on 10:58; Start 04/27/17 at 10:00; Stop 04/27/17 at 11:00; Status DC Piperacillin Sod/ Tazobactam Sod 50 ml @ 100 mls/hr Q8H IV Last administered on 05/04/17 09:50; Start 04/27/17 at 10:00; Stop 05/04/17 at 15:28; Status DC Vancomycin HCl 1000 mg/Sodium Chloride 250 ml @ 250 mls/hr ONCE ONCE IV Last administered on 04/27/17 11:29; Start 04/27/17 at 10:00; Stop 04/27/17 at 10 :59; Status DC Dextrose/Sodium Chloride 1,000 ml @ 84 mls/hr [id number] IV Last administered on 04/28/17 11:12; Start 04/27/17 at 10:00; Stop 04/28/17 at 14:20; Status DC Sodium Bicarbonate (Sodium Bicarbonate 8.4% Inj) 100 meq ONCE ONCE IV PUSH Last administered on 04/27/17 11:29; Start 04/27/17 at 10:00; Stop 04/27/17 at 10:01; Status DC Etomidate (Amidate Inj) 40 mg STK-MED ONCE .ROUTE ; Start 04/27/17 at 09:51; Stop 04/27/17 at 09:52; Status DC Etomidate (Amidate Inj) 20 mg STAT ONCE IV PUSH Last administered on 10:02; Start 04/27/17 at 10:02; Stop 04/27/17 at 10:03; Status DC Sodium Chloride 1,000 ml @ 999 mls/hr BOLUS ONCE IV Last administered on 12:57; Start 04/27/17 at 12:30; Stop 04/27/17 at 13:30; Status DC Lactulose (Lactulose Liq) 30 ml TID PO Last administered on 04/28/17 11:58; Start 04/27/17 at 13:00; Stop 04/28/17 at 14:37; Status DC Famotidine (Pepcid Inj) 10 mg Q12H IV PUSH Last administered on 05/07/17 13:31 ; Start 04/27/17 at 14:00; Stop 05/07/17 at 13:48; Status DC Folic Acid (Folate) 1 mg DAILY PO Last administered on 05/10/17 08:58; Start 04/27/17 at 13:30 Multivitamins (Theragran) 1 tab DAILY PO Last administered on 05/10/17 08:57; Start 04/27/17 at 13:30 Norepinephrine Bitartrate 250 ml @ 7.5 mls/hr TITRATE PRN IV Maintain MAP > 65 mmHg Last administered on 05/02/17 05:03; Start 04/27/17 at 15:15; Stop 05/04/17 at 07:41; Status DC Albumin Human 250 ml @ 250 mls/hr Q12H IV Last administered on 04/29/17 04: 46; Start 04/27/17 at 17:00; Stop 04/29/17 at 13:00; Status DC Calcium Gluconate 1 gm/Sodium Chloride 110 ml @ 110 mls/hr ONCE ONCE IV Last administered on 04/27/17 18:37; Start 04/27/17 at 17:30; Stop 04/27/17 at 18 :29; Status DC Potassium Chloride 100 ml @ 50 mls/hr BOLUS ONCE IV Last administered on 18:03; Start 04/27/17 at 17:30; Stop 04/27/17 at 19:29; Status DC Micafungin Sodium 150 mg/Sodium Chloride 100 ml @ 100 mls/hr Q24H IV Last administered on 05/05/17 22:00; Start 04/27/17 at 22:00; Stop 05/06/17 at 14 :23; Status DC Miscellaneous Information Patient in critical care unit? Ass... [id number] .XX ; Start 04/28/17 at 00:30 Chlorhexidine Gluconate (Chlorhexidine 2% Cloth) 3 pack DAILY@04 TOPICAL Last administered on 05/02/17 04:00; Start 04/28/17 at 04:00; Stop 05/02/17 at 04 :01; Status DC Chlorhexidine Gluconate (Chlorhexidine 2% Cloth) 3 pack UNSCH PRN TOPICAL HYGIENIC CARE; Start 04/28/17 at 00:30; Stop 05/03/17 at 00:19; Status DC Sodium Chloride 1,000 ml @ 0 mls/hr Q0M ONCE IV ; Start 04/28/17 at 07:00; Stop 04/28/17 at 07:01; Status DC Potassium Chloride 100 ml @ 50 mls/hr Q2H IV ; Start 04/28/17 at 07:00; Stop 04/28/17 at 10:59; Status Cancel Potassium Chloride 100 ml @ 25 mls/hr ONCE ONCE IV Last administered on 04/28 08:00; Start 04/28/17 at 07:15; Stop 04/28/17 at 11:14; Status DC Dextrose (D50w (Vial) Inj) 50 ml UNSCH PRN IV PUSH HYPOGLYCEMIA-SEE COMMENTS; Start 04/28/17 at 07:00 Glucagon (Glucagon Inj) 1 mg UNSCH PRN OTHER HYPOGLYCEMIA-SEE COMMENTS; Start 04/28/17 at 07:00 Insulin Human Regular (NovoLIN R SUPPLEMENTAL SCALE) 1 Q4HR SQ Last administered on 05/06/17 09:19; Start 04/28/17 at 08:00; Stop 05/07/17 at 18: 52; Status DC Hydrocortisone Sodium Succinate (SoluCORTEF INJ) 50 mg Q6HR IV PUSH Last administered on 04/29/17 04:47; Start 04/28/17 at 07:00; Stop 04/29/17 at 13 :00; Status DC Vasopressin (Pitressin Inj) 20 units STK-MED ONCE .ROUTE ; Start 04/28/17 at 09 :25; Stop 04/28/17 at 09:26; Status DC Vasopressin 40 units/Dextrose 100 ml @ 6 mls/hr [id number] IV ; Start 04/28/17 at 09:27; Stop 04/28/17 at 09:38; Status DC Vasopressin 40 units/Dextrose 100 ml @ 6 mls/hr [id number] IV Last administered on 04/29/17 06:06; Start 04/28/17 at 09:45; Stop 05/02/17 at 07:56; Status DC Sodium Chloride 38.5 meq/Sodium Bicarbonate 100 meq/Sterile Water 1,000 ml @ 75 mls/hr [id number] IV ; Start 04/28/17 at 16:00; Stop 04/28/17 at 16:48; Status DC Lactulose (Lactulose Liq) 30 ml QID PO Last administered on 05/02/17 20:35; Start 04/28/17 at 18:00; Stop 05/03/17 at 19:38; Status DC Potassium Chloride 100 ml @ 25 mls/hr BOLUS ONCE IV Last administered on 15:20; Start 04/28/17 at 15:15; Stop 04/28/17 at 19:14; Status DC Rifaximin (Xifaxan) 550 mg BID PO Last administered on 05/03/17 08:44; Start 04/28/17 at 21:00; Stop 05/03/17 at 19:39; Status DC Sodium Chloride 38.5 meq/Sodium Bicarbonate 100 meq/Sterile Water 1,000 ml @ 75 mls/hr [id number] IV Last administered on 04/29/17 05:56; Start 04/28/17 at 17:00; Stop 04/29/17 at 12:52; Status DC Vancomycin HCl 1000 mg/Sodium Chloride 250 ml @ 250 mls/hr ONCE ONCE IV Last administered on 04/28/17 18:22; Start 04/28/17 at 18:00; Stop 04/28/17 at 18 :59; Status DC Calcium Gluconate 2 gm/Sodium Chloride 120 ml @ 100 mls/hr NOW IV Last administered on 04/29/17 06:06; Start 04/29/17 at 06:00; Stop 04/29/17 at 07 :11; Status DC Potassium Chloride 100 ml @ 25 mls/hr Q4H IV Last administered on 04/29/17 10:00; Start 04/29/17 at 06:00; Stop 04/29/17 at 13:59; Status DC Bumetanide (Bumex Inj) 1 mg ONCE ONCE IV PUSH Last administered on 04/29/17 13:15; Start 04/29/17 at 13:00; Stop 04/29/17 at 13:13; Status DC Hydrocortisone Sodium Succinate (SoluCORTEF INJ) 50 mg Q12HR IV PUSH Last administered on 05/03/17 20:39; Start 04/29/17 at 21:00; Stop 05/04/17 at 07 :41; Status DC Bumetanide 100 ml @ 2 mls/hr Q24H IV ; Start 04/29/17 at 15:00; Stop 04/29/17 at 15:00; Status DC Bumetanide (Bumex Inj) 1 mg Q8H IV PUSH Last administered on 05/02/17 04:54; Start 04/29/17 at 20:00; Stop 05/02/17 at 07:56; Status DC Vancomycin HCl 1000 mg/Sodium Chloride 250 ml @ 250 mls/hr ONCE ONCE IV Last administered on 04/29/17 20:02; Start 04/29/17 at 17:45; Stop 04/29/17 at 18 :44; Status DC Bumetanide (Bumex Inj) 2 mg NOW ONCE IV PUSH Last administered on 04/29/17 20:27; Start 04/29/17 at 20:00; Stop 04/29/17 at 20:01; Status DC Midazolam HCl 100 ml @ 2 mls/hr TITRATE PRN IV SEDATION; Start 04/30/17 at 13: 30; Stop 05/02/17 at 07:56; Status DC Midazolam HCl (Versed Inj) 2 mg ONCE ONCE IV PUSH Last administered on 13:52; Start 04/30/17 at 13:30; Stop 04/30/17 at 13:36; Status DC Albumin Human 50 ml @ 60 mls/hr Q12H IV Last administered on 05/07/17 18:14; Start 04/30/17 at 18:00; Stop 05/07/17 at 18:52; Status DC Octreotide Acetate (SandoSTATIN INJ) 50 mcg Q8HR IV PUSH Last administered on 05/10/17 22:43; Start 05/01/17 at 14:00 Bumetanide (Bumex Inj) 2 mg NOW ONCE IV PUSH Last administered on 05/02/17 08:34; Start 05/02/17 at 08:00; Stop 05/02/17 at 08:01; Status DC Bumetanide 100 ml @ 2 mls/hr Q24H IV ; Start 05/02/17 at 07:52; Stop 05/02/17 at 08:04; Status DC Water (Free Water) 250 ml Q8HR G-TUBE Last administered on 05/03/17 05:14; Start 05/02/17 at 08:00; Stop 05/03/17 at 10:16; Status DC Bumetanide (Bumex Inj) 1 mg BID@0900,1800 IV PUSH Last administered on 17:30; Start 05/02/17 at 18:00; Stop 05/03/17 at 08:02; Status DC Potassium Chloride 100 ml @ 50 mls/hr Q2H PRN IV For Potassium 2.8 - 3.2 mEq/ L Last administered on 05/06/17 10:24; Start 05/03/17 at 08:00; Stop at 07:09; Status DC Potassium Chloride 100 ml @ 50 mls/hr Q2H PRN IV For Potassium 2.8 - 3.2 mEq/ L Last administered on 05/05/17 09:04; Start 05/03/17 at 08:00; Stop at 07:09; Status DC Potassium Bicarb/ Potassium Chloride (K-Lyte Cl Eff) 50 meq UNSCH PRN PO For Potassium 3.3 - 3.5 mEq/L Last administered on 05/06/17 10:31; Start at 08:00; Stop 05/09/17 at 07:09; Status DC Potassium Chloride 100 ml @ 25 mls/hr UNSCH PRN IV For Potassium 3.3 - 3.5 mEq /L; Start 05/03/17 at 08:00; Stop 05/09/17 at 07:09; Status DC Potassium Chloride 100 ml @ 50 mls/hr Q2H PRN IV For Potassium 3.3 - 3.5 mEq/L ; Start 05/03/17 at 08:00; Stop 05/09/17 at 07:09; Status DC Magnesium Sulfate 4 gm/Sodium Chloride 100 ml @ 50 mls/hr UNSCH PRN IV For Magnesium 0.9 - 1.1 mg/dL Last administered on 05/04/17 06:42; Start at 08:00; Stop 05/09/17 at 07:09; Status DC Magnesium Oxide (Mag-Ox) 800 mg UNSCH PRN PO For Magnesium 1.2 - 1.6 mg/dL Last administered on 05/03/17 11:05; Start 05/03/17 at 08:00; Stop 05/09/17 at 07:09; Status DC Magnesium Sulfate 2 gm/Sodium Chloride 100 ml @ 50 mls/hr UNSCH PRN IV For Magnesium 1.2 - 1.6 mg/dL; Start 05/03/17 at 08:00; Stop 05/09/17 at 07:09; Status DC Potassium Phosphate (K-Phos) 2,000 mg Q4H PRN PO For Phosphorus < 2.5 mg/dL Last administered on 05/03/17 20:39; Start 05/03/17 at 08:00; Stop 05/09/17 at 07:09; Status DC Sodium Phosphate 30 mmol/Sodium Chloride 250 ml @ 42 mls/hr UNSCH PRN IV For Phosphorus < 2.5 mg/dL; Start 05/03/17 at 08:00; Stop 05/09/17 at 07:09; Status DC Potassium Phosphate (K-Phos) 2,000 mg UNSCH PRN PO/TUBE SEE LABEL COMMENTS; Start 05/03/17 at 08:00; Stop 05/09/17 at 07:09; Status DC Potassium Phosphate 30 mmol/ Sodium Chloride 260 ml @ 42 mls/hr UNSCH PRN IV SEE LABEL COMMENTS; Start 05/03/17 at 08:00; Stop 05/09/17 at 07:09; Status DC Water (Free Water) 300 ml Q6HR G-TUBE Last administered on 05/06/17 12:00; Start 05/03/17 at 12:00; Stop 05/07/17 at 18:52; Status DC Hydrocortisone Sodium Succinate (SoluCORTEF INJ) 25 mg Q12HR IV PUSH Last administered on 05/09/17 09:29; Start 05/04/17 at 09:00; Stop 05/09/17 at 10: 44; Status DC Dextrose 1,000 ml @ 75 mls/hr [id number] IV Last administered on 05/04/17 08:32 ; Start 05/04/17 at 07:45; Stop 05/04/17 at 21:04; Status DC Diatrizoate Meglum/ Diatrizoate Sod ( Gastroview Liq) 18 ml ONCE ONCE PO Last administered on 05/04/17 14:52; Start 05/04/17 at 14:00; Stop 05/04/17 at 14:01; Status DC Metronidazole 100 ml @ 100 mls/hr Q8H IV Last administered on 05/11/17 00:30 ; Start 05/04/17 at 16:00; Stop 05/11/17 at 11:29; Status DC Cefepime HCl 2000 mg/Sodium Chloride 100 ml @ 200 mls/hr Q12H IV Last administered on 05/10/17 04:48; Start 05/04/17 at 16:00; Stop 05/10/17 at 14: 10; Status DC Vancomycin HCl (VANCOMYCIN for oral use only) 500 mg Q6H PO Last administered on 05/11/17 00:30; Start 05/04/17 at 18:00; Stop 05/11/17 at 11:29; Status DC Potassium Chloride 100 ml @ 50 mls/hr Q2H IV ; Start 05/05/17 at 09:00; Stop 05/05/17 at 12:59; Status UNV Potassium Chloride 40 meq/ Sodium Chloride 520 ml @ 130 mls/hr ONCE ONCE IV- CENTRAL Last administered on 05/05/17 11:17; Start 05/05/17 at 10:30; Stop 05/05/17 at 14:29; Status DC Magnesium Sulfate/ Dextrose 100 ml @ 100 mls/hr ONCE ONCE IV Last administered on 05/05/17 11:39; Start 05/05/17 at 09:30; Stop 05/05/17 at 10 :29; Status DC Magnesium Sulfate/ Dextrose 100 ml @ 100 mls/hr NOW ONCE IV Last administered on 05/06/17 13:38; Start 05/06/17 at 13:15; Stop 05/06/17 at 14 :14; Status DC Micafungin Sodium 100 mg/Sodium Chloride 100 ml @ 100 mls/hr Q24H IV Last administered on 05/06/17 16:51; Start 05/06/17 at 16:00; Stop 05/07/17 at 14: 27; Status DC Vancomycin HCl 1000 mg/Sodium Chloride 250 ml @ 250 mls/hr ONCE ONCE IV ; Start 05/06/17 at 15:15; Stop 05/06/17 at 16:14; Status UNV Pharmacy Profile Note 0 ml @ 0 mls/hr UNSCH OTHER ; Start 05/06/17 at 15:15; Stop 05/08/17 at 22:47; Status DC Vancomycin HCl 1250 mg/Sodium Chloride 262.5 ml @ 250 mls/hr Q18H IV Last administered on 05/07/17 11:59; Start 05/06/17 at 18:00; Stop 05/07/17 at 14: 27; Status DC Miscellaneous Information SPECIFIC LAB TO BE DRAWN:VANCOMYCIN TROUGH DATE TO... ONCE ONCE .XX ; Start 05/08/17 at 23:45; Stop 05/08/17 at 23:45; Status DC Famotidine (Pepcid Inj) 20 mg Q12H IV PUSH Last administered on 05/07/17 14:24 ; Start 05/07/17 at 14:00; Stop 05/07/17 at 18:52; Status DC Insulin Human Regular (NovoLIN R SUPPLEMENTAL SCALE) 1 ACHS SQ Last administered on 05/09/17 21:24; Start 05/07/17 at 21:00 Sodium Chloride 38.5 meq/Sterile Water 1,009.625 ml @ 84 mls/hr Q12H2M IV Last administered on 05/07/17 20:29; Start 05/07/17 at 19:00; Stop 05/08/17 at 07:01 ; Status DC Pantoprazole Sodium (Protonix) 40 mg DAILY PO Last administered on 05/10/17 08 :57; Start 05/08/17 at 09:00 Albuterol Sulfate (Albuterol Neb) 2.5 mg Q2HR NEB PRN NEB dyspnea; Start at 13:45 Lactulose (Lactulose Liq) 30 ml ONCE ONCE PO Last administered on 05/08/17 14 :22; Start 05/08/17 at 13:45; Stop 05/08/17 at 13:48; Status DC Lactulose (Lactulose Liq) 30 ml DAILY PO Last administered on 05/10/17 08:57; Start 05/09/17 at 09:00 Hydrocortisone Sodium Succinate (SoluCORTEF INJ) 25 mg DAILY IV PUSH Last administered on 05/10/17 08:58; Start 05/10/17 at 09:00 Quetiapine Fumarate (SEROquel) 25 mg BID@09,12 PO Last administered on 08:57; Start 05/09/17 at 12:00 Rifaximin (Xifaxan) 550 mg BID PO Last administered on 05/10/17 22:42; Start 05/09/17 at 21:00 Furosemide (Lasix) 20 mg DAILY PO Last administered on 05/10/17 08:57; Start 05/10/17 at 09:00 Lactated Ringer's 1,000 ml @ 30 mls/hr Q24H PRN IV SEE LABEL COMMENTS; Start 05/09/17 at 22:00; Stop 05/12/17 at 21:59 Sodium Chloride 500 ml @ 30 mls/hr [id number] PRN IV SEE LABEL COMMENTS; Start at 22:00; Stop 05/12/17 at 21:59 Povidone Iodine (Betadine 5% Antisepsis Kit) 1 applic EDITOR BOOK PRN EACH NARE SEE LABEL COMMENTS; Start 05/09/17 at 22:00; Stop 05/12/17 at 21:59 Chlorhexidine Gluconate (Chlorhexidine 2% Cloth) 3 pack EDITOR BOOK PRN TOPICAL SEE LABEL COMMENTS; Start 05/09/17 at 22:00; Stop 05/12/17 at 21:59; Status Cancel Potassium Chloride 100 ml @ 50 mls/hr Q2H IV Last administered on 05/10/17 09 :00; Start 05/10/17 at 09:00; Stop 05/10/17 at 12:59; Status DC A/P Assessment and Plan This is a 58-year-old alcoholic who presented with altered mental status, respiratory failure, severe sepsis and multiorgan failure and was admitted to the [facility] 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 Decker MRI brain 05/02: No evidence of infarction or hemorrhage Repeat EEG 05/02: Severe encephalopathy 04/27: EEG Mild- mod slowing. No epileptiform features. 04/27: CT brain: No acute findings On Thiamine, MVI, folic acid Seizure precautions Continues to be confused intermittently most likely metabolic at the moment. on was Seroquel. Colonic mass -s/p sigmoidoscopy on 05/10 -Pending biopsy report. -Patient not a surgical candidate. -Family has a palliative care meeting tomorrow. -Poor prognosis. COPD Nasal cannula to maintain saturations greater than equal to 92%. Currently in room air Incentive spirometry while awake As needed bronchodilator therapy every 2 hours when necessary Continue to wean off hydrocortisone. Hypernatremia, resolved Pending labs from a.m. Monitor renal function Is and Os, electrolytes replacement per protocol Renal function is improving with Cr: normalizing UOP adequate Renal- Dr. Lane. Has followed CT scan of the abdomen and pelvis 05/04 showed no evidence of hydronephrosis, masses or stones. History of hepatitis C Hepatic steatosis Currently on regular diet./Pured with Honey thickened liquids Pantoprazole for GI prophylaxis Currently on Sandostatin 50 mcg every 8 hours. Likely discontinue soon Monitor LFT's, s/p CT guided paracentesis with removal 4 on 04/27 and repeat Paracentesis at bedside on 04/30 with 4L removal. Repeat large vol paracentesis 05/05 shows cloudy ascites fluid indicating SBP On lactulose [address] abd/pelvis 05/04: Ascites , steatosis of liver. SBP (spontaneous bacterial peritonitis) despite negative cultures Escherichia coli UTI Severe sepsis Continue with abx per ID ( Cefepime, oral vanco, IV flagyl) BC 05/03: NGTD, 05/02 sputum: normal resp james Urine culture: E.coli. C-diff 05/01, 05/04 and 05/08 negative Leukocytosis Normocytic anemia Monitor CBC. Does not meet transfusion thresholds at this time GI prophylaxis with Protonix and DVT prophylaxis with SCDs. Discharge Planning Patient remains confused and requires IV antibiotics so will require continued hospitalization. POOR prognosis. palliative care meeting tomorrow due to new finding of colonic mass. not a surgical candidate. Anusha Santiago MD May 11, 2017 13:43
[2017-05-11] MEDS: QUEtiapine FUMARATE 25 MG TAB PO SCH ×2 (13:44→13:47)
--- NOTE | 2017-05-11 14:13 | HHI.GIFU ---
Subjective Remarks Pt resting in bed in NAD. "I haven't been in the club." otherwise incoherent speech. (Jennifer Guerrero) Objective Vitals I&O Vital Signs Date Time Temp Pulse Resp B/P (MAP) Pulse Ox O2 Delivery O2 Flow Rate FiO2 05/11/17 12:00 96.2 105 19 152/67 (95) 99 05/11/17 08:00 97.2 101 17 132/75 (94) 97 05/11/17 04:00 97.6 91 20 120/69 (86) 97 05/11/17 00:00 97.8 100 22 134/68 (90) 99 05/10/17 20:00 98.0 96 20 103/78 (86) 99 05/10/17 16:00 95.7 90 22 125/64 (84) 98 I/O 05/10/17 05/10/17 05/10/17 05/11/17 05/11/17 05/11/17 07:00 15:00 23:00 07:00 15:00 23:00 Intake Total 440 ml 200 ml 340 ml Output Total 50 ml 50 ml Balance 390 ml 200 ml 340 ml -50 ml Intake Oral 240 ml 240 ml IV Total 200 ml 200 ml 100 ml Output Urine Total 50 ml Drainage Total 50 ml # Voids 3 4 # Bowel Movements 3 3 2 Laboratory Laboratory Tests Test 05/11/17 07:02 Hepatitis A IgM Antibody NEGATIVE Hepatitis B Surface Antigen NEGATIVE Hepatitis B Core IgM Antibody NEGATIVE Hepatitis C Antibody REACTIVE Date/Time Source Procedure Growth Status 05/03/17 10:10 Blood Peripheral Aerobic Blood Culture - Final NO GROWTH IN 5 DAYS Complete 05/03/17 10:10 Blood Peripheral Anaerobic Blood Culture - Final NO GROWTH IN 5 DAYS Complete 05/06/17 14:55 Fluid Peritoneal Fluid Gram Stain - Final Complete 05/06/17 14:55 Fluid Peritoneal Fluid Body Fluid Culture - Final NO GROWTH IN 72 HRS.--AEROBICALLY OR ... Complete 05/02/17 08:10 Sputum Endotracheal Gram Stain - Final Complete 05/02/17 08:10 Sputum Endotracheal Sputum Culture - Final HEAVY GROWTH NORMAL RESPIRATORY SHERYL Complete 04/26/17 20:10 Urine Random Urine Urine Culture - Final Escherichia Coli Complete Physical Exam HEENT: Normocephalic; atraumatic; CHEST: CTA CARDIAC: RRR ABDOMEN: Distended, firm, diffuse TTP, large dressing RLQ with clear drainage; ( +) hepatosplenomegaly; bowel sounds are present in all four quadrants. ostomy bag LLQ with scant clear drainage EXTREMITIES: No edema. SKIN: Normal; no rash; + jaundice. 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 Denies blood in stool. Of note, pt is on Lactulose. C. Diff toxin negative x 2. Octreotide. S/P flex sig found large circumferential mass 5x5 cm sigmoid. GS and oncology consulted. Per GS poor surgical candidate, per oncology poor candidate for tx given neuro status. Palliative care now following and meeting with healthcare proxy is planned. Liver cirrhosis- Past history of ETOH abuse. CT abdomen/pelvis W/O IV contrast ( 05/04) --> COPD changes with minimal bilateral effusions. Small cirrhotic appearing liver with diffuse fatty infiltration. Diffuse high density ascites throughout the abdomen similar in appearance to previous of 04/27/17. Mild diffuse small bowel thickening with no evidence of obstruction. lethargic and confused. on xifaxan, lactulose Ascites- Paracentesis (05/04) 4 L could ascitic fluid removed. Abdomen remains distended. SAAG- 1.9 MELD- 18 lasix. Will continue to monitor renal function. 2gm sodium diet- pureed History of Hepatitis C - hep c ab reactive, will check viral load and genotype Spontaneous bacterial peritonitis, severe sepsis, COPD, hypernatremia (resolved) - per attending Plan - HCV quant & genotype - await path sigmoid mass - await palliative care f/u/discussion with proxy - cont lasix - continue xifaxan - 2 gm sodium diet- pureed - Monitor labs - supportive care This pt seen by myself and Dr Villasenor and this note is written on his behalf (Jennifer Guerrero) Physician Comments Seen and examined with SILVANA, confused , no meaningful history. Probable colon cancer. Meeting with POA today to decide regarding possible hospice and comfort care. (Shweta Villasenor MD) Jennifer Guerrero May 11, 2017 14:13 Shweta Villasenor MD May 11, 2017 14:57
[2017-05-11 16:00] VITALS: BP 128/63; PULSE 94; RESP 17; TEMP 96.5; O2SAT 93
[2017-05-11] MEDS: RIFAXIMIN 550 MG TAB PO SCH ×2 (18:44→20:49)
[2017-05-11 20:00] VITALS: BP 112/81; PULSE 104; RESP 20; TEMP 96.8; O2SAT 97
[2017-05-12] VITALS: BP 142/81; PULSE 108; RESP 20; TEMP 97; O2SAT 99
[2017-05-12] MEDS: OCTREOTIDE INJ 50 MCG/ML AMP IV PUSH SCH ×3 (05:17→21:19)
[2017-05-12 08:00] VITALS: BP 122/76; PULSE 101; RESP 17; TEMP 96.6; O2SAT 98
[2017-05-12] MEDS: INSULIN NovoLIN REGULAR SUPPLEMENTAL SCALE SQ SCH ×4 (08:00→21:00)
[2017-05-12] MEDS: FUROSEMIDE 20 MG TAB PO SCH (08:45)
[2017-05-12] MEDS: THIAMINE HCL 100 MG TAB PO SCH (08:45)
[2017-05-12] MEDS: CALCIUM CARBONATE 1.25 GM (CA 500 MG) TAB PO SCH ×2 (08:45→21:18)
[2017-05-12] MEDS: QUEtiapine FUMARATE 25 MG TAB PO SCH ×2 (08:45→12:44)
[2017-05-12] MEDS: FOLIC ACID 1 MG TAB PO SCH (08:45)
[2017-05-12] MEDS: PANTOPRAZOLE SOD 40 MG DELAYED RELEASE TAB PO SCH (08:45)
[2017-05-12] MEDS: MULTIVITAMIN TAB PO SCH (08:45)
[2017-05-12] MEDS: LACTULOSE SYRUP 20 GM/30 ML CUP PO SCH (09:00)
[2017-05-12] MEDS: SODIUM CHLORIDE 0.9% FLUSH 10 ML FLUSH IV FLUSH SCH ×2 (09:00→21:36)
[2017-05-12] MEDS: RIFAXIMIN 550 MG TAB PO SCH ×2 (09:07→21:18)
--- NOTE | 2017-05-12 10:01 | PD.ONC.PN ---
Subjective Subjective Remarks Afebrile Pt confused but asking for water Denies abdominal pain Objective Data Date Time Temp Pulse Resp B/P (MAP) Pulse Ox O2 Delivery O2 Flow Rate FiO2 05/12/17 08:00 96.6 101 17 122/76 (91) 98 05/12/17 00:00 97.0 108 20 142/81 (101) 99 05/11/17 20:00 96.8 104 20 112/81 (91) 97 05/11/17 16:00 96.5 94 17 128/63 (84) 93 05/11/17 12:00 96.2 105 19 152/67 (95) 99 05/12/17 05/12/17 05/12/17 07:00 15:00 23:00 Intake Total 1200 ml Balance 1200 ml Result Diagram: 05/10/17 0505 05/10/17 0505 Laboratory Results Laboratory Tests Test 05/12/17 09:07 Administered Medications Medications (Trade) Dose Ordered Sig/Shanelle Route PRN Reason Start Time Stop Time Status Last Admin Dose Admin Sodium Chloride (NS Flush) 2 ml UNSCH PRN IV FLUSH FLUSH AFTER USING IV ACCESS 04/26/17 22:30 05/02/17 08:34 Sodium Chloride (NS Flush) 2 ml BID IV FLUSH 04/27/17 09:00 05/11/17 21:41 Lorazepam (Ativan) 1 mg Q4H PRN PO CIWA 8 - 10 04/26/17 22:30 05/11/17 00:30 Lorazepam (Ativan Inj) 1 mg Q4H PRN IV PUSH CIWA 8 - 10 04/26/17 22:30 04/27/17 01:08 Thiamine HCl (Vitamin B1) 100 mg DAILY PO 04/30/17 09:00 05/12/17 08:45 Calcium Carbonate (Oscal) 500 mg Q12HR PO 04/27/17 09:00 05/12/17 08:45 Folic Acid (Folate) 1 mg DAILY PO 04/27/17 13:30 05/12/17 08:45 Multivitamins (Theragran) 1 tab DAILY PO 04/27/17 13:30 05/12/17 08:45 Octreotide Acetate (SandoSTATIN INJ) 50 mcg Q8HR IV PUSH 05/01/17 14:00 05/11/17 21:41 Insulin Human Regular (NovoLIN R SUPPLEMENTAL SCALE) 1 ACHS SQ 05/07/17 21:00 05/09/17 21:24 Pantoprazole Sodium (Protonix) 40 mg DAILY PO 05/08/17 09:00 05/12/17 08:45 Lactulose (Lactulose Liq) 30 ml DAILY PO 05/09/17 09:00 05/11/17 09:00 Hydrocortisone Sodium Succinate (SoluCORTEF INJ) 25 mg DAILY IV PUSH 05/10/17 09:00 05/11/17 09:00 Quetiapine Fumarate (SEROquel) 25 mg BID@,12 PO 05/09/17 12:00 05/12/17 08:45 Rifaximin (Xifaxan) 550 mg BID PO 05/09/17 21:00 05/12/17 09:07 Furosemide (Lasix) 20 mg DAILY PO 05/10/17 09:00 05/12/17 08:45 Objective Remarks GENERAL: Middle aged male lying in bed in soft wrist restraints asking for water. SKIN: Warm and dry. HEAD: Normocephalic. EYES: No injection or drainage. NECK: Supple, trachea midline. CARDIOVASCULAR: +S1/S2 RESPIRATORY: Clear anteriorly. Breathing appears unlabored at rest. GASTROINTESTINAL: Abdomen soft, non-distended. no grimace to palpation. EXTREMITIES: No cyanosis NEUROLOGICAL: Speech somewhat slow. Not following commands. Assessment/Plan Problem List: (1) sigmoid colon mass Plan: 05/12: Colon pathology pending. Meeting today with palliative care and POA. --s/p sigmoidoscopy --> 5 x 5 cm fungating mass in the sigmoid colon suspicious for malignancy. Multiple biopsies were obtained. -- General surgery following --patient's power of divorce attorney, Opal will meet with palliative care on Wednesday. --CT ab/pelvis: no metastasis. --patient is a very poor candidate for any treatment due to his poor performance status and neurological status. Assessment 62y/o male with newly found sigmoid colon mass. h/o COPD, seizure disorder, CVA, anxiety, depression, alcoholism, history of subdural hematoma. Attending Statement The exam, history, and the medical decision-making described in the above note were completed with the assistance of the mid-level provider. I reviewed and agree with the findings presented. I attest that I had a [id number] encounter with the patient on the same day, and personally performed and documented my assessment and findings in the medical record. pt is restraint and confused. COLON, RECTOSIGMOID MASS, BIOPSY: - TUBULOVILLOUS ADENOMA WITH SEVERE GLANDULAR DYSPLASIA. No evidence of cancer on path. Nothing else to offer, sign off available prn. call if back if dx of cancer is confirmed. Radha Henao May 12, 2017 10:01 Rodri Martines MD May 12, 2017 17:16
[2017-05-12] MEDS: HYDROCORTISONE SOD SUCCINATE 100 MG VIAL IV PUSH SCH (10:26)
[2017-05-12 12:00] VITALS: BP 118/71; PULSE 95; RESP 18; TEMP 96.7; O2SAT 99
--- NOTE | 2017-05-12 13:58 | HHI.HCPN ---
Reason for visit a. To assist with evaluation and management of symptoms including: encephalopathy, dyspnea b. To assist medical decision maker(s) with: better understanding of current medical conditions; weighing benefits/burdens of medical treatment options; making medical treatment decisions. Subjective/Interval History Patient status post sigmoidoscopy 05/10 with findings of 5 x 5 cm friable mass, concerning for cancerous process, path pending. Gen. surgery, oncology- pt not a good candidate for surgical or chemotherapy interventions due to poor performance status, debilitated state and significant encephalopathy. Patient was extubated 05/06, has tolerated nasal cannula since. Remains confused at times verbalizing them generally not able to make his needs known or clearly communicate. Planned for meeting today at 2 PM with healthcare proxy Opal Leonardo, she called me earlier today to confirm this meeting. ----- Pt seen in room friend/ HCP Opal at bedside. He is awake, verbalizing somewhat clearer today. Confused-- oriented to self and seems to interact w Opal; when asked who Opal is he replies "a lady". He is otherwise oriented to self only. His speech is repetitive, he repeats "98" while looking at the TV , and note that the large numbers on front of TV read channel 98 for information.He reads other things from the TV at times. He does follow some simple commands. He asks to have restraints removed. He talks to Opal about going places, doing things, though generally thoughts are not related. He is thirsty, drinking honey thick water well, occasional cough. Further explore vijay Joseph her role as proxy, decisions RE code status, comfort measures vs ongoing aggressive tx. She expresses she is having difficulty making decision for pt and wants more time to talk to him and think about things. Gently explore that if she did not feel comfortable making his decisions or found it too difficult then she did not have to continue to serve as proxy, we could proceed with alternative such as a 7th grade social studies teacher via social advantage. She indicates she thinks she is Ok to make decisions she just needs more time. Request she notify us in the next 24 hrs if she decides to no longer mechanics handyman as decision maker. Explore w her pt conditions/options/ review of hospice services, path still pending. Explore that pt remains high risk for ongoing medical issues regardless of pathology. Advise that if path indicated cancer process, pt not a candidate for aggressive/invasive tx. Strongly encouraged her to make decisions in the next couple of days, palliative available to answer questions as needed. . . Advance Directives Living Will: Never completed Health Care Surrogate: Never completed Durable Power of Pet Trainer: Never completed Objective Vital Signs Date Time Temp Pulse Resp B/P (MAP) Pulse Ox O2 Delivery O2 Flow Rate FiO2 05/12/17 12:00 96.7 95 18 118/71 (87) 99 05/12/17 08:00 96.6 101 17 122/76 (91) 98 05/12/17 00:00 97.0 108 20 142/81 (101) 99 05/11/17 20:00 96.8 104 20 112/81 (91) 97 05/11/17 16:00 96.5 94 17 128/63 (84) 93 Intake & Output 05/12/17 05/12/17 07:00 19:00 Intake Total 1200 ml Balance 1200 ml Intake Oral 1200 ml # Voids 0 # Bowel Movements 1 Physical Exam CONSTITUTIONAL/GENERAL: Chronically ill-appearing patient, awake , confused, pleasant SKIN: Skin warm, dry. Chronic scaling, thickening noted to skin bilateral lower extremities especially to feet. HEAD: Atraumatic. Normocephalic. EYES: Pupils 3 mm, brisk reaction to light. No injection or drainage. Fundi not examined. CARDIOVASCULAR: Regular rate and rhythm , difficult to auscultate over loud verbalizations. faint pedal pulses. Radial pulses palpable.+ Edema bilateral upper extremities RESPIRATORY/CHEST: Symmetric unlabored respirations on room air, lungs appear clear though difficult to hear over verbalizations. Breath sounds equal bilaterally. GASTROINTESTINAL: Abdomen soft, no apparent tenderness, slightly distended. no readily palpable masses. BS normoactive NEUROLOGICAL: awake , oriented to self only. Confused, no insight to illness or hospitalization. moving all 4 extremities some spontaneously. Follows simple commands. Verbalizing more clearly today than yesterday. PSYCHIATRIC: Limited assessment due to clinical condition-no apparent anxiety/ distress Diagnostic Tests Laboratory Laboratory Tests Test 05/10/17 05:05 05/11/17 07:02 05/12/17 09:07 White Blood Count 38.5 TH/MM3 (4.0-11.0) Red Blood Count 3.26 MIL/MM3 (4.50-5.90) Hemoglobin 9.3 GM/DL (13.0-17.0) Hematocrit 30.5 % (39.0-51.0) Mean Corpuscular Volume 93.5 FL (80.0-100.0) Mean Corpuscular Hemoglobin 28.6 PG (27.0-34.0) Mean Corpuscular Hemoglobin Concent 30.6 % (32.0-36.0) Red Cell Distribution Width 17.4 % (11.6-17.2) Platelet Count 264 TH/MM3 (150-450) Mean Platelet Volume 9.5 FL (7.0-11.0) Blood Urea Nitrogen 36 MG/DL (7-18) Creatinine 1.11 MG/DL (0.60-1.30) Random Glucose 68 MG/DL (74-106) Total Protein 6.2 GM/DL (6.4-8.2) Albumin 1.9 GM/DL (3.4-5.0) Calcium Level 8.0 MG/DL (8.5-10.1) Alkaline Phosphatase 196 U/L (45-117) Aspartate Amino Transf (AST/SGOT) 74 U/L (15-37) Alanine Aminotransferase (ALT/SGPT) 58 U/L (12-78) Total Bilirubin 4.1 MG/DL (0.2-1.0) Sodium Level 142 MEQ/L (136-145) Potassium Level 3.3 MEQ/L (3.5-5.1) Chloride Level 113 MEQ/L (98-107) Carbon Dioxide Level 19.5 MEQ/L (21.0-32.0) Anion Gap 10 MEQ/L (5-15) Estimat Glomerular Filtration Rate 67 ML/MIN (>89) Hepatitis A IgM Antibody NEGATIVE (NEGATIVE) Hepatitis B Surface Antigen NEGATIVE (NEGATIVE) Hepatitis B Core IgM Antibody NEGATIVE (NEGATIVE) Hepatitis C Antibody REACTIVE (NEGATIVE) Result Diagram: 05/10/17 0505 05/10/17 0505 Imaging Last Impressions Liver Ultrasound 05/09/17 1000 Signed Impressions: Service Date/Time: Tuesday, May 09, 2017 17:16 - CONCLUSION: 1. Cirrhotic appearing liver with small amount of ascites. Ascites fluid primarily along the margin of the liver and spleen. 2. Prominent gallbladder wall with pericholecystic fluid. These findings are generally seen in the setting of liver cirrhosis but limit sensitivity for acute cholecystitis. Wallace Cordoba MD Chest X-Ray 05/06/17 0600 Signed Impressions: Service Date/Time: April 03:33 - CONCLUSION: Persistent but improving increased interstitial markings likely related to improving edema. Carmine Saucedo MD Abdomen/Pelvis CT 05/04/17 0000 Signed Impressions: Service Date/Time: Thursday, May 04, 2017 16:12 - CONCLUSION: 1. COPD changes with minimal bilateral effusions. 2. Small cirrhotic appearing liver with diffuse fatty infiltration. 3. Diffuse high density ascites throughout the abdomen similar in appearance to previous of 04/27/17. 4. Mild diffuse small bowel thickening with no evidence of obstruction. Andrzej Loaiza MD Brain MRI 05/02/17 0000 Signed Impressions: Service Date/Time: Tuesday, May 02, 2017 13:22 - CONCLUSION: 1. No evidence of acute infarction or acute hemorrhage. 2. Diffuse confluent disseminated white matter signal abnormalities in the supratentorial brain is nonspecific in appearance and could be due to diffuse white matter disease or ischemic process. Cliff Lugo MD Abdomen Ultrasound 04/30/17 0000 Signed Impressions: Service Date/Time: Sunday, April 30, 2017 11:40 - CONCLUSION: Moderate ascites is still present. Jesus Duncan MD Paracentesis 04/27/17 1452 Signed Impressions: Service Date/Time: Thursday, April 27, 2017 15:51 - CONCLUSION: 1. One complicated CT-guided paracentesis. 2. Profound hepatic steatosis. Wallace Cordoba MD Head CT 04/27/17 0000 Signed Impressions: Service Date/Time: Thursday, April 27, 2017 15:44 - CONCLUSION: Diffuse atrophy is present. Areas of encephalomalacia involving the right temporal tip and the left orbitofrontal cortices. No evidence of acute hemorrhage or edema Jesus Duncan MD Procedures 04/27 intubation, right IJ central line 04/28 CT-guided Paracentesis, 4 L . Assessment and Plan Disease Oriented Problem List: (1) Respiratory failure, acute (2) COPD (chronic obstructive pulmonary disease) (3) Tobacco abuse (4) Hepatic encephalopathy (5) Pneumonia (6) Severe sepsis (7) Acute kidney injury (8) Hypokalemia (9) Alcohol abuse (10) Metabolic acidosis Symptom Scale: (1) Dyspnea (2) Encephalopathy Pertinent Non-Medical Issues Psychosocial:Per EMR patient reported to be homeless though at times resides in a hotel room. Per case management record- patient reports no Social Security number or contact persons. Per prior visit ID in EMR, note a scanned ID card documenting SSN #[id number]. During a prior visit in EMR 2014, contacts documented a brother Edin Goode @ [address] [facility] [phone]--> case management notes that the patient reports brother however he was living in that mobile home with his sister in law. Multiple hospitalizations note patient homeless and no other family reported. Searches through available resources via case management this admission with no additional family to contact. Discussed with legal 05/03/17 a proceed with friend as proxy. Spiritual: Not known Legal:Patient currently intubated and sedated and unable to participate in decision-making. Not clear at this time if he will recover enough to participate in decision-making. Prior to intubation and sedation ED physician notes that patient did not have the capacity to make his own decisions. Patient previously listed a brother [Edin Goode] as a contact during past hospitalizations, however per later records/admissions he later indicated this brother . No other family contact has been listed. need to obtain [employer] report to locate next of kin; if no next of kin can be identified may need appointed /temporary legal decision-maker such as social work advantage. SSN# per prior ID card scanned in EMR: [id number].Searches through available resources via case management/financial svs this admission with no additional family to contact. Discussed with legal 05/03/17 , may proceed with friend as proxy. 05/05/17 friend and rom Joseph agrees to serve as healthcare proxy for this patient. Ethical issues impacting care:no ethical issues identified at this time Important Contacts Rom/shahida Regalado [facility]. [phone] [facility] // office -serving as proxy as of 05/05/17 Patient previously reported a brother Edin Goode in [place] as a contact however this person during later visits was reported to be . No other family is known at this time. . Prognosis Condition is critical, Prognosis at this time guarded in terms of survival and recovery. Patient with long history of EtOH and various complications secondary to. Now with multiorgan failure requiring mechanical vent. He remains at risk for ongoing, medications and setbacks. If he does survive current acute hospitalization, he will likely have ongoing risk for further decline in complications. . Code Status: Full Code Plan * Legal decision maker:Patient currently intubated and sedated and unable to participate in decision-making. Prior to intubation and sedation ED physician notes that patient did not have the capacity to make his own decisions. Patient previously listed a brother as a contact during past hospitalizations, however per later records/admissions he later indicated this brother . 05/04/17 d/w legal dept, no return of family from [employer], may proceed w friend serving as proxy if she is willing/able . 05/05/17 -- met with friend and rom Joseph at bedside, she is willing to serve as healthcare proxy for this patient. 05/06/17-patient more alert and interactive possible he may be able to participate in decision-making in the coming days. 05/10/17 patient remains confused unable to make his own decisions. * Goals: 05/12/17 met again w HCP Opal. Review of her serving as HCP as she is having difficulty making decisions, she will decide/notify if she decides NOT to cont serving as HC proxy. She is otherwise still weighing conditions/options , and no decisions made. Review conditions, limited tx options, hospice option - - strongly encouraged her to make decisions in the next couple of days to further guide tx course. IF she elects NOT to continue as HC proxy then would need to involve [employer] via case management. * CODE STATUS: Full code by default * SYMPTOMS: --Encephalopathy/AMS-now intubated and sedated. Long history of EtOH abuse, seizures and secondary injuries. Likely multifactorial: Hepatic, renal dysfunction, sepsis, respiratory failure. repeat EEG severe encephalopathy. No sedation for several days--last week more wakeful and following commands able to medically extubate 05/06. Has continued to have episodes of confusion since that time, today remains very confused/unable to make decisions --Dyspnea-admitted with pneumonia, worsening respiratory status intubated-- extubated 05/06. Tolerated nasal cannula. Now tolerating room air. on honey thick liquids, risk for aspiration and respiratory decompensation. * Palliative care will continue to follow during hospital course as condition evolves, to assist patient/decision-maker with understanding of medical conditions, weighing benefits/burdens of treatment options, for clarification of goals of treatment. Additionally will assist with any symptoms of palliative concern Time Spent Total Floor Time (mins): 25 (chart review, PE, meeting w HCP, d/w case management) Attestation To help prompt me to consider important information that might be impacting today's encounter and assessment, information from prior notes written by myself or my colleagues may have been "brought forward" into today's note. My signature on this note, however, is an attestation that I personally performed the exam, history, and/or decision-making noted today, and, unless otherwise indicated, the interactions with patient, family, and staff as well as the review of records all occurred today. I also attest that the listed assessment and stated plan reflect my best clinical judgment today based on the combination of historical information, prior notes, and today's exam/ interactions. When time spent is documented, it refers only to time spent today by the signer, or if indicated, combined time spent today by collaborating physician/nurse practitioner. Liliam Shell May 12, 2017 13:58
--- NOTE | 2017-05-12 14:53 | HHI.PR ---
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 Patient seen and examined today lying in bed. [employer]OC[employer] SHOPPER at the bedside. Patient states open "my name is Don Zacarias. I have been drinking a lot." Patient has been rambling with sentences and words occasional response to commands and questions. States that the year is 1916, he is at his house right now. Denies pain and discomfort. Denies chest pain. Denies fevers. As per nursing no acute issues overnight. Objective Vitals Vital Signs Date Time Temp Pulse Resp B/P (MAP) Pulse Ox O2 Delivery O2 Flow Rate FiO2 05/12/17 12:00 96.7 95 18 118/71 (87) 99 05/12/17 08:00 96.6 101 17 122/76 (91) 98 05/12/17 00:00 97.0 108 20 142/81 (101) 99 05/11/17 20:00 96.8 104 20 112/81 (91) 97 05/11/17 16:00 96.5 94 17 128/63 (84) 93 I/O 05/11/17 05/11/17 05/11/17 05/12/17 05/12/17 05/12/17 07:00 15:00 23:00 07:00 15:00 23:00 Intake Total 225 ml 1200 ml Output Total 50 ml Balance -50 ml 225 ml 1200 ml Intake Oral 225 ml 1200 ml Output Urine Total 50 ml # Voids 0 # Bowel Movements 2 1 1 Result Diagram: 05/10/17 0505 05/10/17 0505 Imaging Last Impressions Liver Ultrasound 05/09/17 1000 Signed Impressions: Service Date/Time: Tuesday, May 09, 2017 17:16 - CONCLUSION: 1. Cirrhotic appearing liver with small amount of ascites. Ascites fluid primarily along the margin of the liver and spleen. 2. Prominent gallbladder wall with pericholecystic fluid. These findings are generally seen in the setting of liver cirrhosis but limit sensitivity for acute cholecystitis. Wallace Cordoba MD Chest X-Ray 05/06/17 0600 Signed Impressions: Service Date/Time: April 03:33 - CONCLUSION: Persistent but improving increased interstitial markings likely related to improving edema. Carmine Saucedo MD Abdomen/Pelvis CT 05/04/17 0000 Signed Impressions: Service Date/Time: Thursday, May 04, 2017 16:12 - CONCLUSION: 1. COPD changes with minimal bilateral effusions. 2. Small cirrhotic appearing liver with diffuse fatty infiltration. 3. Diffuse high density ascites throughout the abdomen similar in appearance to previous of 04/27/17. 4. Mild diffuse small bowel thickening with no evidence of obstruction. Andrzej Loaiza MD Brain MRI 05/02/17 0000 Signed Impressions: Service Date/Time: Tuesday, May 02, 2017 13:22 - CONCLUSION: 1. No evidence of acute infarction or acute hemorrhage. 2. Diffuse confluent disseminated white matter signal abnormalities in the supratentorial brain is nonspecific in appearance and could be due to diffuse white matter disease or ischemic process. Cliff Lugo MD Abdomen Ultrasound 04/30/17 0000 Signed Impressions: Service Date/Time: Sunday, April 30, 2017 11:40 - CONCLUSION: Moderate ascites is still present. Jesus Duncan MD Paracentesis 04/27/17 1452 Signed Impressions: Service Date/Time: Thursday, April 27, 2017 15:51 - CONCLUSION: 1. One complicated CT-guided paracentesis. 2. Profound hepatic steatosis. Wallace Cordoba MD Head CT 04/27/17 0000 Signed Impressions: Service Date/Time: Thursday, April 27, 2017 15:44 - CONCLUSION: Diffuse atrophy is present. Areas of encephalomalacia involving the right temporal tip and the left orbitofrontal cortices. No evidence of acute hemorrhage or edema Jesus Duncan MD Objective Remarks GENERAL: This is a well-nourished, well-developed patient, in no apparent distress. SKIN: Warm and dry. HEENT: Normocephalic. Pupils equal round and reactive. Nose without bleeding. Airway patent. NECK: Trachea midline. No JVD. Supple. CARDIOVASCULAR: Regular rate and rhythm without murmurs, gallops, or rubs. RESPIRATORY: Clear to auscultation. Breath sounds equal bilaterally. No wheezes , rales, or rhonchi. GASTROINTESTINAL: Abdomen soft, non-tender. Bowel Sounds normoactive x4. Protuberant abdomen, appears to have ascites. Draining bilateral sides possibly from where patient has been tapped prior. MUSCULOSKELETAL: Extremities without clubbing, cyanosis, or edema. NEUROLOGICAL: Awake and alert. Confuse. Normal speech. A/P Problem List: (1) sigmoid colon mass (2) Abdominal pain ICD Code: R10.9 - Unspecified abdominal pain (3) Encephalopathy ICD Code: G93.40 - Encephalopathy, unspecified (4) Electrolyte abnormality ICD Code: E87.8 - Other disorders of electrolyte and fluid balance, not elsewhere classified (5) Hypernatremia ICD Code: E87.0 - Hyperosmolality and hypernatremia (6) Tobacco abuse ICD Code: Z72.0 - Tobacco abuse Status: Chronic (7) Respiratory failure, acute ICD Code: J96.00 - Acute respiratory failure, unspecified whether with hypoxia or hypercapnia (8) COPD (chronic obstructive pulmonary disease) ICD Code: J44.9 - COPD (chronic obstructive pulmonary disease) Status: Chronic Assessment and Plan This is a 58-year-old alcoholic who presented with altered mental status, respiratory failure, severe sepsis and multiorgan failure and was admitted to the [facility] [place] 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 Decker - MRI brain 05/02: No evidence of infarction or hemorrhage - Repeat EEG 05/02: Severe encephalopathy - 04/27: EEG Mild- mod slowing. No epileptiform features. - 04/27: CT brain: No acute findings - On Thiamine, MVI, folic acid - Seizure precautions - Continues to be confused most likely metabolic at the moment. On Seroquel. - Consult psychiatry for capacity Colonic mass - s/p sigmoidoscopy on 05/10 - Pending biopsy report. - Patient not a surgical candidate. - "Opal" Friend/ Landlord/ HCP with palliative care meeting - Poor prognosis. COPD - Nasal cannula to maintain saturations greater than equal to 92%. Currently in room air - Incentive spirometry while awake - As needed bronchodilator therapy every 2 hours when necessary - Continue to wean off hydrocortisone. Hypernatremia, resolved - Monitor renal function Is and Os, electrolytes replacement per protocol - Renal function is improving with Cr: normalizing UOP adequate - Renal- Dr. Lane. Has followed - CT scan of the abdomen and pelvis 05/04 showed no evidence of hydronephrosis, masses or stones. History of hepatitis C Hepatic steatosis - Currently on regular diet./Pured with Honey thickened liquids - Pantoprazole for GI prophylaxis - Currently on Sandostatin 50 mcg every 8 hours. Likely discontinue soon - Monitor LFT's, s/p CT guided paracentesis with removal 4 on 04/27 and repeat Paracentesis at bedside on 04/30 with 4L removal. - Repeat large vol paracentesis 05/05 shows cloudy ascites fluid indicating SBP - On lactulose 30 cc daily, Rifaximin - CT abd/pelvis 05/04: Ascites , steatosis of liver. - Pending Hep C serology SBP (spontaneous bacterial peritonitis) despite negative cultures Escherichia coli UTI Severe sepsis - Previously on Cefepime, oral vanco, IV flagyl) - BC 05/03: NGTD, 05/02 sputum: normal resp james - Urine culture: E.coli. C-diff 05/01, 05/04 and 05/08 negative Leukocytosis Normocytic anemia - Monitor CBC. Does not meet transfusion thresholds at this time GI prophylaxis with Protonix and DVT prophylaxis with SCDs. Discuss with patient, nursing, Dr. Milan Planning Poor prognosis. Pending biopsy results. Palliative care following. Nathaly Sullivan May 12, 2017 14:53
[2017-05-12 16:00] VITALS: BP 113/62; PULSE 93; RESP 15; TEMP 96; O2SAT 95
[2017-05-12 20:00] VITALS: BP 142/61; PULSE 89; RESP 18; TEMP 96.1; O2SAT 93
[2017-05-13] VITALS (7 sets, daily range): BP systolic 113–188; BP diastolic 64–78; PULSE 88–98; RESP 16–20; TEMP 96.4–98.8; O2SAT 92–100
[2017-05-13] MEDS: OCTREOTIDE INJ 50 MCG/ML AMP IV PUSH SCH ×3 (05:07→20:57)
[2017-05-13] MEDS: RESP: ALBUTEROL 2.5 MG/3 ML NEB (PRN) NEB (07:45)
[2017-05-13] MEDS: INSULIN NovoLIN REGULAR SUPPLEMENTAL SCALE SQ SCH ×4 (08:00→20:58)
[2017-05-13] MEDS ORDERED: RESP: ALBUTEROL 2.5 MG/IPRATROPIUM 0.5 MG NEB (SCH) NEB (08:00)
--- NOTE | 2017-05-13 08:14 | HHI.PR ---
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 Patient seen and examined today. Reported by nurse to have O2 saturation at room air at about 82%, nasal cannula was placed about 2 L O2 sat picked up at 90%, increased O2 nasal cannula to 3 L nebulizer was given us ordered patient's O2 sat is 93%. Patient continues to be confused and talking. Stating that there is a doughnut in front of him know he needs to get to it. Follows commands but does not respond to questions. (Nathaly Sullivan) Objective Vital Signs Date Time Temp Pulse Resp B/P (MAP) Pulse Ox O2 Delivery O2 Flow Rate FiO2 05/13/17 07:49 95 Nasal Cannula 3.00 05/13/17 00:00 96.6 88 18 140/67 (91) 94 05/12/17 20:00 96.1 89 18 142/61 (88) 93 05/12/17 16:00 96.0 93 15 113/62 (79) 95 05/12/17 12:00 96.7 95 18 118/71 (87) 99 I/O 05/12/17 05/12/17 05/12/17 05/13/17 05/13/17 05/13/17 07:00 15:00 23:00 07:00 15:00 23:00 Intake Total 1200 ml 950 ml 360 ml Output Total 0 ml 0 ml Balance 1200 ml 950 ml 360 ml Intake Oral 1200 ml 950 ml 360 ml Drainage Total 0 ml 0 ml # Voids 0 1 1 # Bowel Movements 1 4 2 (Nathaly Sullivan) Result Diagram: 05/10/17 0505 05/10/17 0505 Imaging Last Impressions Liver Ultrasound 05/09/17 1000 Signed Impressions: Service Date/Time: Tuesday, May 09, 2017 17:16 - CONCLUSION: 1. Cirrhotic appearing liver with small amount of ascites. Ascites fluid primarily along the margin of the liver and spleen. 2. Prominent gallbladder wall with pericholecystic fluid. These findings are generally seen in the setting of liver cirrhosis but limit sensitivity for acute cholecystitis. Wallace Cordoba MD Chest X-Ray 05/06/17 0600 Signed Impressions: Service Date/Time: April 03:33 - CONCLUSION: Persistent but improving increased interstitial markings likely related to improving edema. Carmine Saucedo MD Abdomen/Pelvis CT 05/04/17 0000 Signed Impressions: Service Date/Time: Thursday, May 04, 2017 16:12 - CONCLUSION: 1. COPD changes with minimal bilateral effusions. 2. Small cirrhotic appearing liver with diffuse fatty infiltration. 3. Diffuse high density ascites throughout the abdomen similar in appearance to previous of 04/27/17. 4. Mild diffuse small bowel thickening with no evidence of obstruction. Andrzej Loaiza MD Brain MRI 05/02/17 0000 Signed Impressions: Service Date/Time: Tuesday, May 02, 2017 13:22 - CONCLUSION: 1. No evidence of acute infarction or acute hemorrhage. 2. Diffuse confluent disseminated white matter signal abnormalities in the supratentorial brain is nonspecific in appearance and could be due to diffuse white matter disease or ischemic process. Cliff Lugo MD Abdomen Ultrasound 04/30/17 0000 Signed Impressions: Service Date/Time: Sunday, April 30, 2017 11:40 - CONCLUSION: Moderate ascites is still present. Jesus Duncan MD Paracentesis 04/27/17 1452 Signed Impressions: Service Date/Time: Thursday, April 27, 2017 15:51 - CONCLUSION: 1. One complicated CT-guided paracentesis. 2. Profound hepatic steatosis. Wallace Cordoba MD Head CT 04/27/17 0000 Signed Impressions: Service Date/Time: Thursday, April 27, 2017 15:44 - CONCLUSION: Diffuse atrophy is present. Areas of encephalomalacia involving the right temporal tip and the left orbitofrontal cortices. No evidence of acute hemorrhage or edema Jesus Duncan MD Procedures Paracentesis Objective Remarks GENERAL: This is a well-nourished, well-developed patient, in no apparent distress. SKIN: Warm and dry. HEENT: Normocephalic. Pupils equal round and reactive. Nose without bleeding. Airway patent. NECK: Trachea midline. No JVD. Supple. CARDIOVASCULAR: Regular rate and rhythm without murmurs, gallops, or rubs. RESPIRATORY: Rhonchi upper lobes bilaterally, diminished bases, minimal wheeze. GASTROINTESTINAL: Abdomen soft, non-tender. Bowel Sounds normoactive x4. Protuberant abdomen, appears to have ascites. Draining bilateral sides possibly from where patient has been tapped prior. MUSCULOSKELETAL: Extremities without clubbing, cyanosis, or edema. NEUROLOGICAL: Awake and alert. Confuse. Normal speech. (Nathaly Sullivan) A/P Problem List: (1) sigmoid colon mass (2) Abdominal pain ICD Code: R10.9 - Unspecified abdominal pain (3) Encephalopathy ICD Code: G93.40 - Encephalopathy, unspecified (4) Electrolyte abnormality ICD Code: E87.8 - Other disorders of electrolyte and fluid balance, not elsewhere classified (5) Hypernatremia ICD Code: E87.0 - Hyperosmolality and hypernatremia (6) Respiratory failure, acute ICD Code: J96.00 - Acute respiratory failure, unspecified whether with hypoxia or hypercapnia (7) Tobacco abuse ICD Code: Z72.0 - Tobacco abuse Status: Chronic (8) COPD (chronic obstructive pulmonary disease) ICD Code: J44.9 - COPD (chronic obstructive pulmonary disease) Status: Chronic (9) Dyspnea ICD Code: R06.00 - Dyspnea, unspecified Assessment and Plan This is a 58-year-old alcoholic who presented with altered mental status, respiratory failure, severe sepsis and multiorgan failure and [place] [facility] 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 Decker - MRI brain 05/02: No evidence of infarction or hemorrhage - Repeat EEG 05/02: Severe encephalopathy - 04/27: EEG Mild- mod slowing. No epileptiform features. - 04/27: CT brain: No acute findings - On Thiamine, MVI, folic acid - Seizure precautions - Continues to be confused most likely metabolic at the moment. On Seroquel. - Consult psychiatry for capacity Colonic mass - s/p sigmoidoscopy on 05/10 - Patient not a surgical candidate. - "Opal" Friend/ Landlord/ HCP with palliative care meeting - Poor prognosis. 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 - Hemo/Onc consult signed off - Due to poor prognosis, follow up with HCP by palliative is appreciated. COPD, possible exacerbation versus Aspiration Pneumonia - Nasal cannula to maintain saturations greater than equal to 92%. Currently in room air - Incentive spirometry while awake - As needed bronchodilator therapy every 2 hours when necessary - Continue to wean off hydrocortisone. - Reported to have O2 sat desaturation, 82%. Continue nasal cannula. Duonebs scheduled q4hrs. CXR Stat. LAsix x1 dose 40mg IV. Check BMP jorge. Monitor resp status. Needs pulm toileting. - If chest x-ray is abnormal or showing consolidation, will ask ID for ABX recommendation as patient has been placed on multiple antibiotics. Hypernatremia, resolved - Monitor renal function Is and Os, electrolytes replacement per protocol - Renal function is improving with Cr: normalizing UOP adequate - Renal- Dr. Lane. Has followed - CT scan of the abdomen and pelvis 05/04 showed no evidence of hydronephrosis, masses or stones. History of hepatitis C Hepatic steatosis - Currently on regular diet./Pured with Honey thickened liquids - Pantoprazole for GI prophylaxis - Currently on Sandostatin 50 mcg every 8 hours. Likely discontinue soon - Monitor LFT's, s/p CT guided paracentesis with removal 4 on 04/27 and repeat Paracentesis at bedside on 04/30 with 4L removal. - Repeat large vol paracentesis 05/05 shows cloudy ascites fluid indicating SBP - On lactulose 30 cc daily, Rifaximin - CT abd/pelvis 05/04: Ascites , steatosis of liver. - Pending Hep C serology SBP (spontaneous bacterial peritonitis) despite negative cultures Escherichia coli UTI Severe sepsis - Previously on Cefepime, oral vanco, IV flagyl) - BC 05/03: NGTD, 05/02 sputum: normal resp james - Urine culture: E.coli. C-diff 05/01, 05/04 and 05/08 negative Leukocytosis Normocytic anemia - Monitor CBC. Does not meet transfusion thresholds at this time GI prophylaxis with Protonix and DVT prophylaxis with SCDs. Discuss with patient, nursing, Dr. Santiago Discharge Planning Poor prognosis. Palliative care following. (Nathaly Sullivan) Attending Attestation The exam, history, and the medical decision-making described in the above note were completed with the assistance of the mid-level provider. I reviewed and agree with the findings presented. I attest that I had a [id number] encounter with the patient on the same day, and personally performed and documented my assessment and findings in the medical record. Patient is less confused today but continues to be confused. He was watching TV and was asking about the current events. Patient able to give me his first and middle name. He could not give me his last name. Patient stated that he was at the motel. When I told him he was at the hospital he stated that he did not know that. Denied shortness of breathing. Remains afebrile. This morning patient require more oxygen. Chest x-ray was done which showed a new right-sided consolidation gen NAD resp CTA b/l abd soft NDNT CV RRR A/P Acute hypoxia Colonic mass pathology showing TUBULOVILLOUS ADENOMA WITH SEVERE GLANDULAR DYSPLASIA. Chest x-ray was done which showed right sided consolidation. Dr. Hodge infectious disease notified the results. Clinically patient is not in any respiratory failure and looks very comfortable. Patient is not a surgical candidate. Very poor prognosis. Palliative care is following. (Anusha Santiago MD) Nathaly SullivanP May 13, 2017 08:14 Anusha Santiago MD May 13, 2017 11:52
[2017-05-13] MEDS ORDERED: FUROSEMIDE 40 MG/4 ML VIAL IV PUSH ONE (08:15)
[2017-05-13 08:32] LABS: POTASSIUM 3.3 MEQ/L (3.5-5.1)
[2017-05-13] MEDS: QUEtiapine FUMARATE 25 MG TAB PO SCH ×2 (08:38→12:53)
[2017-05-13] MEDS: FOLIC ACID 1 MG TAB PO SCH (08:40)
[2017-05-13] MEDS: RIFAXIMIN 550 MG TAB PO SCH ×2 (08:41→20:42)
[2017-05-13] MEDS: PANTOPRAZOLE SOD 40 MG DELAYED RELEASE TAB PO SCH (08:49)
[2017-05-13] MEDS: CALCIUM CARBONATE 1.25 GM (CA 500 MG) TAB PO SCH ×2 (08:49→20:42)
[2017-05-13] MEDS: MULTIVITAMIN TAB PO SCH (08:49)
[2017-05-13] MEDS: THIAMINE HCL 100 MG TAB PO SCH (08:50)
[2017-05-13] MEDS: LACTULOSE SYRUP 20 GM/30 ML CUP PO SCH (08:50)
[2017-05-13] MEDS: SODIUM CHLORIDE 0.9% FLUSH 10 ML FLUSH IV FLUSH SCH ×2 (08:50→20:57)
[2017-05-13 08:54] LABS: HEMATOCRIT 30.9 % (39.0-51.0); MEAN CELL VOLUME 92.1 FL (80.0-100.0); MEAN CORPUSCULAR HEMOGLOBIN 29.2 PG (27.0-34.0); MEAN CORPUSCULAR HGB CONC 31.8 % (32.0-36.0); PLATELET COUNT 266 TH/MM3 (150-450); RED BLOOD COUNT 3.35 MIL/MM3 (4.50-5.90); RED CELL DISTRIBUTION WIDTH 19.9 % (11.6-17.2); WHITE BLOOD COUNT 26.3 TH/MM3 (4.0-11.0)
[2017-05-13 08:57] LABS: REVIEW FLAG FINAL
--- NOTE | 2017-05-13 09:04 | RADRPT ---
EXAM DATE/TIME: 05/13/2017 07:28 [place] COMPARISON: CHEST SINGLE AP, May 06, 2017, 3:33. INDICATIONS : Short of breath. MEDICAL HISTORY : Chronic obstructive pulmonary disease. Myocardial infarction. Cerebrovascular accident. Seizures. Adalid paddy. Renal disease. Liver disease. Pneumonia. ETOH abuse. Depression. Anxiety. SURGICAL HISTORY : Right hip surgery. ENCOUNTER: Subsequent ACUITY: 1 day PAIN SCORE: 0/10 LOCATION: Bilateral chest FINDINGS: Portable AP view of the chest demonstrates a normal-sized cardiac silhouette. There is new right uppe r lung zone predominant air space consolidation with mild right lower lung zone airspace consolidatio n. Left lung is clear. No effusion or pneumothorax is identified. CONCLUSION: There is right lung airspace consolidation that is new. This could represent an infectious process in the appropriate clinical setting. Suggest follow-up to confirm resolution. Carmine Strong MD on May 13, 2017 at 9:02 Board Certified Radiologist. This report was verified electronically.
[2017-05-13] MEDS: HYDROCORTISONE SOD SUCCINATE 100 MG VIAL IV PUSH SCH (10:19)
[2017-05-13] MEDS: RESP: ALBUTEROL 2.5 MG/IPRATROPIUM 0.5 MG NEB (SCH) NEB ×3 (11:36→20:09)
--- NOTE | 2017-05-13 12:08 | HHI.GIFU ---
Subjective Remarks Pt is resting in bed, currently receiving a breathing treatment. He remains confused and does not answer questions appropriately. He does complain of pain with abdominal palpation. Per nurse, he continues to have liquid stool. No family or friends at bedside. Per palliative care notes, pts current HCP is Opal. (Fartun Zhao) Objective Vitals I&O Vital Signs Date Time Temp Pulse Resp B/P (MAP) Pulse Ox O2 Delivery O2 Flow Rate FiO2 05/13/17 07:49 95 Nasal Cannula 3.00 05/13/17 00:00 96.6 88 18 140/67 (91) 94 05/12/17 20:00 96.1 89 18 142/61 (88) 93 05/12/17 16:00 96.0 93 15 113/62 (79) 95 05/12/17 12:00 96.7 95 18 118/71 (87) 99 I/O 05/12/17 05/12/17 05/12/17 05/13/17 05/13/17 05/13/17 07:00 15:00 23:00 07:00 15:00 23:00 Intake Total 1200 ml 950 ml 360 ml Output Total 0 ml 0 ml Balance 1200 ml 950 ml 360 ml Intake Oral 1200 ml 950 ml 360 ml Drainage Total 0 ml 0 ml # Voids 0 1 1 # Bowel Movements 1 4 2 Laboratory Laboratory Tests Test 05/13/17 07:49 White Blood Count 26.3 Red Blood Count 3.35 Hemoglobin 9.8 Hematocrit 30.9 Mean Corpuscular Volume 92.1 Mean Corpuscular Hemoglobin 29.2 Mean Corpuscular Hemoglobin Concent 31.8 Red Cell Distribution Width 19.9 Platelet Count 266 Mean Platelet Volume 9.0 Blood Urea Nitrogen 29 Creatinine 1.06 Random Glucose 87 Calcium Level 7.7 Sodium Level 138 Potassium Level 3.3 Chloride Level 110 Carbon Dioxide Level 17.0 Anion Gap 11 Estimat Glomerular Filtration Rate 70 Date/Time Source Procedure Growth Status 05/03/17 10:10 Blood Peripheral Aerobic Blood Culture - Final NO GROWTH IN 5 DAYS Complete 05/03/17 10:10 Blood Peripheral Anaerobic Blood Culture - Final NO GROWTH IN 5 DAYS Complete 05/06/17 14:55 Fluid Peritoneal Fluid Gram Stain - Final Complete 05/06/17 14:55 Fluid Peritoneal Fluid Body Fluid Culture - Final NO GROWTH IN 72 HRS.--AEROBICALLY OR ... Complete 05/02/17 08:10 Sputum Endotracheal Gram Stain - Final Complete 05/02/17 08:10 Sputum Endotracheal Sputum Culture - Final HEAVY GROWTH NORMAL RESPIRATORY SHERYL Complete 04/26/17 20:10 Urine Random Urine Urine Culture - Final Escherichia Coli Complete Imaging Last Impressions Chest X-Ray 05/13/17 0000 Signed Impressions: Service Date/Time: May 07:28 - CONCLUSION: There is right lung airspace consolidation that is new. This could represent an infectious process in the appropriate clinical setting. Suggest follow-up to confirm resolution. Carmine Strong MD Liver Ultrasound 05/09/17 1000 Signed Impressions: Service Date/Time: Tuesday, May 09, 2017 17:16 - CONCLUSION: 1. Cirrhotic appearing liver with small amount of ascites. Ascites fluid primarily along the margin of the liver and spleen. 2. Prominent gallbladder wall with pericholecystic fluid. These findings are generally seen in the setting of liver cirrhosis but limit sensitivity for acute cholecystitis. Wallace Cordoba MD Abdomen/Pelvis CT 05/04/17 0000 Signed Impressions: Service Date/Time: Thursday, May 04, 2017 16:12 - CONCLUSION: 1. COPD changes with minimal bilateral effusions. 2. Small cirrhotic appearing liver with diffuse fatty infiltration. 3. Diffuse high density ascites throughout the abdomen similar in appearance to previous of 04/27/17. 4. Mild diffuse small bowel thickening with no evidence of obstruction. Andrzej Loaiza MD Brain MRI 05/02/17 0000 Signed Impressions: Service Date/Time: Tuesday, May 02, 2017 13:22 - CONCLUSION: 1. No evidence of acute infarction or acute hemorrhage. 2. Diffuse confluent disseminated white matter signal abnormalities in the supratentorial brain is nonspecific in appearance and could be due to diffuse white matter disease or ischemic process. Cliff Lugo MD Abdomen Ultrasound 04/30/17 0000 Signed Impressions: Service Date/Time: Sunday, April 30, 2017 11:40 - CONCLUSION: Moderate ascites is still present. Jesus Duncan MD Paracentesis 04/27/17 1452 Signed Impressions: Service Date/Time: Thursday, April 27, 2017 15:51 - CONCLUSION: 1. One complicated CT-guided paracentesis. 2. Profound hepatic steatosis. Wallace Cordoba MD Head CT 04/27/17 0000 Signed Impressions: Service Date/Time: Thursday, April 27, 2017 15:44 - CONCLUSION: Diffuse atrophy is present. Areas of encephalomalacia involving the right temporal tip and the left orbitofrontal cortices. No evidence of acute hemorrhage or edema Jesus Duncan MD Physical Exam HEENT: Normocephalic; atraumatic; CHEST: CTA CARDIAC: RRR ABDOMEN: Distended, firm, diffuse TTP, large dressing RLQ with clear drainage; ( +) hepatosplenomegaly; bowel sounds are present in all four quadrants. ostomy bag LLQ. EXTREMITIES: No edema. SKIN: Normal; no rash; + jaundice. SEISMIC SURVEY ASSISTANT: confused (Fartun Zhao) Assessment and Plan Plan Diarrhea, sigmoid mass- per nurse pt continues to have diarrhea and fecal incontinence. Denies blood in stool. Of note, pt is on Lactulose. C. Diff toxin negative x 2. Octreotide. S/P flex sig found large circumferential mass 5x5 cm sigmoid. 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 GS and oncology consulted. Per GS poor surgical candidate, per oncology poor candidate for tx given neuro status. Palliative care has met with HCP who has not made a decision regarding treatment plan. Liver cirrhosis/encephalopathy- Past history of ETOH abuse. Liver US (05/09) --> Cirrhotic appearing liver with small amount of ascites. Ascitic fluid primarily along the margin of the liver and spleen. Prominent gallbladder wall with pericholecystic fluid. These findings are generally seen in the setting of liver cirrhosis but limit sensitive for acute cholecystitis. on xifaxan, lactulose Ascites- Paracentesis (05/04) 4 L could ascitic fluid removed. Abdomen remains distended. SAAG- 1.9 MELD- 18 History of Hepatitis C - hep c ab reactive, viral load and genotype pending. Spontaneous bacterial peritonitis, severe sepsis, COPD, hypernatremia (resolved) - per attending Plan - HCV quant & genotype pending - Await decision by HCP - Continue xifaxan - Continue lactulose - Monitor labs - supportive care This pt has been seen and examined by myself and Dr. Villasenor and this note is written on his behalf (Fartun Zhao) Physician Comments Seen and examined with [employer] [facility]. colon biopsies noted. Appearance of malignancy on colonoscopy.Not a surgical candidate. Liver cirrhosis. Palliative on case. (Shweta Villasenor MD) Fartun Zhao May 13, 2017 12:08 Shweta Villasenor MD May 13, 2017 15:36
--- NOTE | 2017-05-13 13:13 | PD.PSY.CON ---
Provisional Diagnosis Admission Date Apr 26, 2017 at 22:16 Nich[place] I. Delirium due to underlying medical conditions vs dementia without behavioral disturbance, alcohol use disorder History of Present Illness Service Psychiatry Consult Requested By Medical team Reason for Consult Decision-making capacity to participate in medical decision Primary Care Physician Unknown HPI The patient is a 58-year-old occasions man, homeless, with a history of alcohol use disorder, medical history of COPD, who presented with altered mental status , respiratory failure, severe sepsis and multiorgan failure and was admitted to the [facility] [place]. 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 History of subdural hematoma. Metabolic encephalopathy secondary to severe sepsis. History of cervical fracture. Dx with Colonic mass, s/p sigmoidoscopy on 05/10. Patient not a surgical candidate. Opal" Friend/ Landlord/ HCP with palliative care meeting. Poor prognosis. Pathology came back as COLON, RECTOSIGMOID MASS , BIOPSY: TUBULOVILLOUS ADENOMA WITH SEVERE GLANDULAR DYSPLASIA. Hemo/Onc consult signed off. Consulted to psychiatry for decision making capacity. Patient seen and examined today. Patient is pleasantly confused and disoriented talking mostly incoherent and nonsensical words. Stating that there is a doughnut in front of him know he needs to get to it. Follows important commands but does not respond to questions appropriately. He is unable to explain the reason of his hospitalization, able to provide any information about his medical illnesses or medical plan. Review of Systems Except as stated in HPI: all other systems reviewed are Neg Past Family Social History Coded Allergies: codeine (Unverified Allergy, Severe, N/V, 04/26/17) propoxyphene (Unverified Allergy, Severe, HIVES, 04/26/17) Current Medications Medications (Trade) Dose Ordered Sig/Shanelle Route Start Time Stop Time Status Last Admin (NS Flush) 2 ml UNSCH PRN IV FLUSH 04/26/17 22:30 05/02/17 08:34 (NS Flush) 2 ml BID IV FLUSH 04/27/17 09:00 05/13/17 08:50 (Zofran Inj) 4 mg Q6H PRN IVP 04/26/17 22:30 (Narcan Inj) 0.4 mg UNSCH PRN IV PUSH 04/26/17 22:30 (Milk Of Magnesia Liq) 30 ml Q12H PRN PO 04/26/17 22:30 (Senokot) 17.2 mg Q12H PRN PO 04/26/17 22:30 (Romazicon Inj) 0.2 mg Q1M PRN IV PUSH 04/26/17 22:30 (Ativan) 1 mg Q4H PRN PO 04/26/17 22:30 05/11/17 00:30 (Ativan Inj) 1 mg Q4H PRN IV PUSH 04/26/17 22:30 04/27/17 01:08 (Ativan) 2 mg Q2H PRN PO 04/26/17 22:30 (Ativan Inj) 2 mg Q2H PRN IV PUSH 04/26/17 22:30 (Ativan Inj) 2 mg Q1H PRN IV PUSH 04/26/17 22:30 (Ativan Inj) 2 mg Q15M PRN IV PUSH 04/26/17 22:30 (Vitamin B1) 100 mg DAILY PO 04/30/17 09:00 05/13/17 08:50 (Oscal) 500 mg Q12HR PO 04/27/17 09:00 05/13/17 08:49 (Brethine Inj) 1 mg UNSCH PRN SQ 04/27/17 10:00 (Folate) 1 mg DAILY PO 04/27/17 13:30 05/13/17 08:40 (Theragran) 1 tab DAILY PO 04/27/17 13:30 05/13/17 08:49 Miscellaneous Information Patient in critical care unit? Ass... Q361D .XX 04/28/17 00:30 (D50w (Vial) Inj) 50 ml UNSCH PRN IV PUSH 04/28/17 07:00 (Glucagon Inj) 1 mg UNSCH PRN OTHER 04/28/17 07:00 (SandoSTATIN INJ) 50 mcg Q8HR IV PUSH 05/01/17 14:00 05/13/17 12:56 (NovoLIN R SUPPLEMENTAL SCALE) 1 ACHS SQ 05/07/17 21:00 05/12/17 16:40 (Protonix) 40 mg DAILY PO 05/08/17 09:00 05/13/17 08:49 (Albuterol Neb) 2.5 mg Q2HR NEB PRN NEB 05/08/17 13:45 05/13/17 07:45 (Lactulose Liq) 30 ml DAILY PO 05/09/17 09:00 05/11/17 09:00 (SoluCORTEF INJ) 25 mg DAILY IV PUSH 05/10/17 09:00 05/13/17 10:19 (SEROquel) 25 mg BID@09,12 PO 05/09/17 12:00 05/13/17 12:53 (Xifaxan) 550 mg BID PO 05/09/17 21:00 05/13/17 08:41 (Lasix) 20 mg DAILY PO 05/10/17 09:00 Future hold 05/12/17 08:45 (Duoneb Neb) 1 ampule Q4HR WHILE AWAKE NEB NEB 05/13/17 12:00 05/13/17 11:36 Physical Exam Vital Signs Vital Signs Date Time Temp Pulse Resp B/P (MAP) Pulse Ox O2 Delivery O2 Flow Rate FiO2 05/13/17 12:00 96.4 92 18 188/76 (113) 100 05/13/17 07:49 Nasal Cannula 3.00 I/O 05/13/17 05/13/17 05/14/17 08:00 16:00 00:00 Intake Total 360 ml Output Total 0 ml Balance 360 ml Lab Results Test 05/13/17 07:49 White Blood Count 26.3 TH/MM3 Red Blood Count 3.35 MIL/MM3 Hemoglobin 9.8 GM/DL Hematocrit 30.9 % Mean Corpuscular Volume 92.1 FL Mean Corpuscular Hemoglobin 29.2 PG Mean Corpuscular Hemoglobin Concent 31.8 % Red Cell Distribution Width 19.9 % Platelet Count 266 TH/MM3 Mean Platelet Volume 9.0 FL Blood Urea Nitrogen 29 MG/DL Creatinine 1.06 MG/DL Random Glucose 87 MG/DL Calcium Level 7.7 MG/DL Sodium Level 138 MEQ/L Potassium Level 3.3 MEQ/L Chloride Level 110 MEQ/L Carbon Dioxide Level 17.0 MEQ/L Anion Gap 11 MEQ/L Estimat Glomerular Filtration Rate 70 ML/MIN Date/Time Source Procedure Growth Status 05/03/17 10:10 Blood Peripheral Aerobic Blood Culture - Final NO GROWTH IN 5 DAYS Complete 05/03/17 10:10 Blood Peripheral Anaerobic Blood Culture - Final NO GROWTH IN 5 DAYS Complete 05/06/17 14:55 Fluid Peritoneal Fluid Gram Stain - Final Complete 05/06/17 14:55 Fluid Peritoneal Fluid Body Fluid Culture - Final NO GROWTH IN 72 HRS.--AEROBICALLY OR ... Complete 05/02/17 08:10 Sputum Endotracheal Gram Stain - Final Complete 05/02/17 08:10 Sputum Endotracheal Sputum Culture - Final HEAVY GROWTH NORMAL RESPIRATORY SHERYL Complete 04/26/17 20:10 Urine Random Urine Urine Culture - Final Escherichia Coli Complete Mental Status Examination Appearance: Appropriate Consciousness: Alert Orientation: Person Motor Activity: Normal gait Speech: Unremarkable, Incoherent Language: Adequate Fund of Knowledge: Inadequate Attention and Concentration: Inadequate Memory: Impaired Mood: Appropriate Affect: Appropriate Thought Process & Associations: Loose associations Thought Content: Bizarre thinking, Thought blocking Hallucination Type: None Delusion Type: None Suicidal Ideation: No Suicidal Plan: No Suicidal Intention: No Homicidal Ideation: No Homicidal Plan: No Homicidal Intention: No Insight: Poor Judgment: Poor Assessment & Plan Problem List: (1) Acute kidney injury ICD Codes: N17.9 - Acute kidney failure, unspecified Status: Acute (2) Severe sepsis ICD Codes: A41.9 - Sepsis, unspecified organism; R65.20 - Severe sepsis without septic shock Status: Acute (3) Delirium ICD Codes: R41.0 - Disorientation, unspecified Assessment & Plan: Since the patient is completely disoriented and confused, unable to provide any meaningful information for the psychiatric assessment, unable to express a logical choice about his medical situation and plan, even unable to verbalize any understanding of current medical condition, is evident that the patient doesn't have decision-making capacity to participate in medical decisions at this moment. Medical decisions should be made by health care by proxy as per palliative care recommendations. No need of psychiatric admission. Can continue Seroquel 25 mg twice a day to avoid behavioral dysregulation Assessment & Plan Estimated LOS: Ramón Hanna MD May 13, 2017 13:13
--- NOTE | 2017-05-13 15:32 | HHI.HCPN ---
Reason for visit a. To assist with evaluation and management of symptoms including: encephalopathy, dyspnea b. To assist medical decision maker(s) with: better understanding of current medical conditions; weighing benefits/burdens of medical treatment options; making medical treatment decisions. Subjective/Interval History Patient status post sigmoidoscopy 05/10 with findings of 5 x 5 cm friable mass. Gen. surgery, oncology- pt not a good candidate for surgical or chemotherapy interventions due to poor performance status, debilitated state and significant encephalopathy. Patient was extubated 05/06, has tolerated nasal cannula since. Remains confused at times verbalizing them generally not able to make his needs known or clearly communicate. Rectosigmoid mass pathology with no evidence of malignancy. Oncology has signed off. Psychiatry consulted today to evaluate for medical decision-making capacity. Patient was seen by Dr. Rossi. Patient remains confused and disoriented with mostly incoherent and nonsensical speech. Patient was found to lack decision-making capacity to participating in goals of care at this time. Patient seen in his room. Will visit with palliative care home health care social worker Elizabeth Mcnair. Patient alert to self, was able to tell me his name and age. He told me that he knew he was at the hospital but it was unclear on why. Confused as to situation. First reported that he has 5 children, he was unable to elaborate on details such as names or gender. He later reported not having any children. Patient endorsing mild chest pain, unable to elaborate on complaint. Denies nausea, vomiting or abdominal discomfort. Patient afebrile, stable hemodynamically. Currently tolerating O2 via nasal cannula at 3 L, oxygen saturation in the low 90s. Daughter workup revealing persistent leukocytosis 26.3, Hgb is stable and 9.8, platelet count 266. Chest x-ray today revealing right lung airspace consolidation which is new, could represent infectious process given clinical setting. Placed several telephone calls to healthcare proxy Opal Leonardo, left message in voicemail. Case discussed with case finishing machine adjuster Paula Marsh, she reports receiving a phone call from patient's healthcare proxy Opal electing to discharge patient with hospice services. Placed several phone calls to proxy again, left voicemail. Hospice referral made given the above. Patient appears hospice appropriate given his progressive decline, multiple comorbidities to include COPD, prior CVA, recent prolonged acute hospitalization with respiratory failure requiring mechanical ventilation, and profound physical deconditioning. Palliative care will continue to follow-up. . Family/friend interactions See interval note. . Advance Directives Living Will: Never completed Health Care Surrogate: Never completed Durable Power of Brick Pointer: Never completed Advance Directive Specifics Health Care Surrogate(s): Patient's close friend Opal Leonardo is serving as healthcare proxy decision maker. No next of kin has been identified. . Significant change in goals: Comfort directed care with hospice. Hospice referral made. . Objective Vital Signs Date Time Temp Pulse Resp B/P (MAP) Pulse Ox O2 Delivery O2 Flow Rate FiO2 05/13/17 12:00 96.4 92 18 188/76 (113) 100 05/13/17 08:00 96.6 90 18 135/64 (87) 92 05/13/17 07:49 95 Nasal Cannula 3.00 05/13/17 00:00 96.6 88 18 140/67 (91) 94 05/12/17 20:00 96.1 89 18 142/61 (88) 93 05/12/17 16:00 96.0 93 15 113/62 (79) 95 Intake & Output 05/13/17 05/13/17 07:00 19:00 Intake Total 360 ml Output Total 0 ml Balance 360 ml Intake Oral 360 ml Drainage Total 0 ml # Voids 1 # Bowel Movements 2 Physical Exam CONSTITUTIONAL/GENERAL: Chronically ill-appearing patient, awake , confused, pleasant SKIN: Skin warm, dry. Chronic scaling, thickening noted to skin bilateral lower extremities especially to feet. HEAD: Atraumatic. Normocephalic. EYES: Pupils 3 mm, brisk reaction to light. No injection or drainage. Fundi not examined. CARDIOVASCULAR: Regular rate and rhythm , difficult to auscultate over loud verbalizations. Radial pulses palpable.+ Edema bilateral upper extremities RESPIRATORY/CHEST: Symmetric unlabored respirations on room air, lungs appear clear though difficult to hear over verbalizations. Breath sounds equal bilaterally. O2 via NC. GASTROINTESTINAL: Abdomen soft, round, no apparent tenderness, slightly distended. BS normoactive NEUROLOGICAL: awake , oriented to self only. Confused, no insight to illness or hospitalization. moving all 4 extremities some spontaneously. Follows simple commands. PSYCHIATRIC: Limited assessment due to clinical condition. No apparent anxiety/ distress noted. . Diagnostic Tests Laboratory Laboratory Tests Test 05/11/17 07:02 05/12/17 09:07 05/13/17 07:49 Hepatitis A IgM Antibody NEGATIVE (NEGATIVE) Hepatitis B Surface Antigen NEGATIVE (NEGATIVE) Hepatitis B Core IgM Antibody NEGATIVE (NEGATIVE) Hepatitis C Antibody REACTIVE (NEGATIVE) White Blood Count 26.3 TH/MM3 (4.0-11.0) Red Blood Count 3.35 MIL/MM3 (4.50-5.90) Hemoglobin 9.8 GM/DL (13.0-17.0) Hematocrit 30.9 % (39.0-51.0) Mean Corpuscular Volume 92.1 FL (80.0-100.0) Mean Corpuscular Hemoglobin 29.2 PG (27.0-34.0) Mean Corpuscular Hemoglobin Concent 31.8 % (32.0-36.0) Red Cell Distribution Width 19.9 % (11.6-17.2) Platelet Count 266 TH/MM3 (150-450) Mean Platelet Volume 9.0 FL (7.0-11.0) Blood Urea Nitrogen 29 MG/DL (7-18) Creatinine 1.06 MG/DL (0.60-1.30) Random Glucose 87 MG/DL (74-106) Calcium Level 7.7 MG/DL (8.5-10.1) Sodium Level 138 MEQ/L (136-145) Potassium Level 3.3 MEQ/L (3.5-5.1) Chloride Level 110 MEQ/L (98-107) Carbon Dioxide Level 17.0 MEQ/L (21.0-32.0) Anion Gap 11 MEQ/L (5-15) Estimat Glomerular Filtration Rate 70 ML/MIN (>89) Result Diagram: 05/13/17 0749 05/13/17 0749 Imaging Last 48 hours Impressions Chest X-Ray 05/13/17 0000 Signed Impressions: Service Date/Time: May 07:28 - CONCLUSION: There is right lung airspace consolidation that is new. This could represent an infectious process in the appropriate clinical setting. Suggest follow-up to confirm resolution. Carmine Strong MD Procedures 04/27/17 -Intubation, right IJ central line 04/28/17 -CT-guided Paracentesis, 4 L 05/06/17 -US guided right paracentesis 05/06/17 -extubation 05/10/17 -Flexible Sigmoidoscopy with biopsy . Assessment and Plan Disease Oriented Problem List: (1) COPD (chronic obstructive pulmonary disease) (2) Respiratory failure, acute (3) Tobacco abuse (4) Hepatic encephalopathy (5) Pneumonia (6) Severe sepsis (7) Acute kidney injury (8) Hypokalemia (9) Alcohol abuse (10) Metabolic acidosis Symptom Scale: (1) Dyspnea 0-10 Scale: Unable to quantify Comment: Currently tolerating O2 via nasal cannula. Extubated on 05/06/17. (2) Encephalopathy 0-10 Scale: Unable to quantify Comment: Persistent metabolic encephalopathy. Pertinent Non-Medical Issues Psychosocial:Per EMR patient reported to be homeless though at times resides in a hotel room. Per case management record- patient reports no Social Security number or contact persons. Per prior visit ID in EMR, note a scanned ID card documenting SSN #[id number]. During a prior visit in EMR 2014, contacts documented a brother Edin Goode @ [address] [place] [address] --> case management notes that the patient reports brother however he was living in that mobile home with his sister in law. Multiple hospitalizations note patient homeless and no other family reported. Searches through available resources via case management this admission with no additional family to contact. Discussed with legal 05/03/17 a proceed with friend as proxy. Spiritual: Not known Legal: Patient with persistent encephalopathy, unable to provide info on next of kin.Searches through available resources via case management/financial svs this admission with no additional family to contact. Discussed with legal 05/03 , may proceed with friend as proxy. 05/05/17 friend and rom Joseph agrees to serve as healthcare proxy for this patient. Ethical issues impacting care: as stated above. . Important Contacts Rom/shahida Regalado [facility]. [phone] ritesh // [phone] office -serving as proxy as of 05/05/17 Patient previously reported a brother Edin Goode in [place] as a contact however this person during later visits was reported to be . No other family is known at this time. . Prognosis Condition is critical, Prognosis at this time guarded in terms of survival and recovery. Patient with long history of EtOH and various complications secondary to. Now with multiorgan failure requiring mechanical vent. He remains at risk for ongoing, medications and setbacks. If he does survive current acute hospitalization, he will likely have ongoing risk for further decline in complications. . Code Status: Full Code Plan * Legal decision maker: Patient unable to participate in medical decision- making given persistent encephalopathy. Evaluated by psych on 05/13/17, deemed not capacitated for medical decision-making. Unclear if he will regain capacity. No information on next of kin. Patient previously listed a brother as a contact during past hospitalizations, however per later records/admissions he later indicated this brother . 05/04/17 d/w legal dept, no return of family from [employer], may proceed w friend serving as proxy if she is willing/able . Friend and landlord Opal Leonardo serving as healthcare proxy as per [place] statute since 05/05/17. * Goals of care: Patient's friend Opal Leonardo acting as healthcare proxy decision maker, verbalized to case finishing machine adjuster her wishes for patient to be discharged with hospice services. Palliative care attempted to communicate with healthcare proxy, several phone calls, left voicemail. Hospice referral made given the above. Patient appears hospice appropriate given his progressive decline, multiple comorbidities to include COPD, prior CVA, recent prolonged acute hospitalization with respiratory failure requiring mechanical ventilation, and profound physical deconditioning. * CODE STATUS: Full code by default. * SYMPTOMS: --Encephalopathy/AMS- persistent. Long history of EtOH abuse, seizures and secondary injuries. Likely multifactorial: Hepatic, renal dysfunction, sepsis, respiratory failure. Patient evaluated by psychiatry on 05/13/17, deemed not capacitated for medical decision-making. --Dyspnea-admitted with pneumonia, worsening respiratory status intubated-- extubated 05/06. Tolerated nasal cannula. On honey thick liquids, risk for aspiration and respiratory decompensation. * Case discussed with case finishing machine adjuster Paula Marsh. * Palliative care will continue to follow during hospital course as condition evolves, to assist patient/decision-maker with understanding of medical conditions, weighing benefits/burdens of treatment options, for clarification of goals of treatment. Additionally will assist with any symptoms of palliative concern . Time Spent Total Floor Time (mins): 38 (Total time to include review medical records, physical exam, case discussion with case finishing machine adjuster and hospice.) >50% Counseling/Coord of Care: Yes Attestation To help prompt me to consider important information that might be impacting today's encounter and assessment, information from prior notes written by myself or my colleagues may have been "brought forward" into today's note. My signature on this note, however, is an attestation that I personally performed the exam, history, and/or decision-making noted today, and, unless otherwise indicated, the interactions with patient, family, and staff as well as the review of records all occurred today. I also attest that the listed assessment and stated plan reflect my best clinical judgment today based on the combination of historical information, prior notes, and today's exam/ interactions. When time spent is documented, it refers only to time spent today by the signer, or if indicated, combined time spent today by collaborating physician/nurse practitioner. Maria Elena Ordoñez May 13, 2017 15:32
--- NOTE | 2017-05-13 15:33 | HHI.IDPN ---
Subjective Subjective Remarks reconsulted Pt apparently desated earlier today CXR with infiltrate in RUL - new no fever no cough Antibiotics vanco po flagyl Allergies: Coded Allergies: codeine (Unverified Allergy, Severe, N/V, 04/26/17) propoxyphene (Unverified Allergy, Severe, HIVES, 04/26/17) Objective . Vital Signs Date Time Temp Pulse Resp B/P (MAP) Pulse Ox O2 Delivery O2 Flow Rate FiO2 05/13/17 12:00 96.4 92 18 188/76 (113) 100 05/13/17 08:00 96.6 90 18 135/64 (87) 92 05/13/17 07:49 95 Nasal Cannula 3.00 05/13/17 00:00 96.6 88 18 140/67 (91) 94 05/12/17 20:00 96.1 89 18 142/61 (88) 93 05/12/17 16:00 96.0 93 15 113/62 (79) 95 . Laboratory Tests Test 05/13/17 07:49 White Blood Count 26.3 TH/MM3 Red Blood Count 3.35 MIL/MM3 Hemoglobin 9.8 GM/DL Hematocrit 30.9 % Mean Corpuscular Volume 92.1 FL Mean Corpuscular Hemoglobin 29.2 PG Mean Corpuscular Hemoglobin Concent 31.8 % Red Cell Distribution Width 19.9 % Platelet Count 266 TH/MM3 Mean Platelet Volume 9.0 FL Laboratory Tests Test 05/13/17 07:49 Blood Urea Nitrogen 29 MG/DL Creatinine 1.06 MG/DL Random Glucose 87 MG/DL Calcium Level 7.7 MG/DL Sodium Level 138 MEQ/L Potassium Level 3.3 MEQ/L Chloride Level 110 MEQ/L Carbon Dioxide Level 17.0 MEQ/L Anion Gap 11 MEQ/L Estimat Glomerular Filtration Rate 70 ML/MIN Imaging Last Impressions Chest X-Ray 05/13/17 0000 Signed Impressions: Service Date/Time: May 07:28 - CONCLUSION: There is right lung airspace consolidation that is new. This could represent an infectious process in the appropriate clinical setting. Suggest follow-up to confirm resolution. Carmine Strong MD Liver Ultrasound 05/09/17 1000 Signed Impressions: Service Date/Time: Tuesday, May 09, 2017 17:16 - CONCLUSION: 1. Cirrhotic appearing liver with small amount of ascites. Ascites fluid primarily along the margin of the liver and spleen. 2. Prominent gallbladder wall with pericholecystic fluid. These findings are generally seen in the setting of liver cirrhosis but limit sensitivity for acute cholecystitis. Wallace Cordoba MD Abdomen/Pelvis CT 05/04/17 0000 Signed Impressions: Service Date/Time: Thursday, May 04, 2017 16:12 - CONCLUSION: 1. COPD changes with minimal bilateral effusions. 2. Small cirrhotic appearing liver with diffuse fatty infiltration. 3. Diffuse high density ascites throughout the abdomen similar in appearance to previous of 04/27/17. 4. Mild diffuse small bowel thickening with no evidence of obstruction. Andrzej Loaiza MD Brain MRI 05/02/17 0000 Signed Impressions: Service Date/Time: Tuesday, May 02, 2017 13:22 - CONCLUSION: 1. No evidence of acute infarction or acute hemorrhage. 2. Diffuse confluent disseminated white matter signal abnormalities in the supratentorial brain is nonspecific in appearance and could be due to diffuse white matter disease or ischemic process. Cliff Lugo MD Abdomen Ultrasound 04/30/17 0000 Signed Impressions: Service Date/Time: Sunday, April 30, 2017 11:40 - CONCLUSION: Moderate ascites is still present. Jesus Duncan MD Paracentesis 04/27/17 1452 Signed Impressions: Service Date/Time: Thursday, April 27, 2017 15:51 - CONCLUSION: 1. One complicated CT-guided paracentesis. 2. Profound hepatic steatosis. Wallace Cordoba MD Head CT 04/27/17 0000 Signed Impressions: Service Date/Time: Thursday, April 27, 2017 15:44 - CONCLUSION: Diffuse atrophy is present. Areas of encephalomalacia involving the right temporal tip and the left orbitofrontal cortices. No evidence of acute hemorrhage or edema Jesus Duncan MD Physical Exam CONSTITUTIONAL/GENERAL: This is an adequately nourished patient, in no apparent distress. TUBES/LINES/DRAINS: SKIN: No jaundice, rashes, or lesions. Skin temperature appropriate. Not diaphoretic. EYES: Pupils equal and round and reactive. Extraocular motions intact. No scleral icterus. No injection or drainage. Fundi not examined. CARDIOVASCULAR: Regular rate and rhythm without murmurs, gallops, or rubs. No JVD. Peripheral pulses symmetric. RESPIRATORY/CHEST: Symmetric, unlabored respirations. No rhochi to auscultation , but pt ws talking the entire exam. Breath sounds equal bilaterally. GASTROINTESTINAL: Abdomen soft, no pain to palpation, moderately distended. No hepato-splenomegaly, or palpable masses. No guarding. Bowel sounds present. draining fairly clear light yellow fluid from previous paracenthesis site LLQ and another draining site from RLQ with multiple 4x4 s sturated with odorless seorus fluid MUSCULOSKELETAL: Extremities without clubbing, cyanosis, + trace edema. NEUROLOGICAL:awake, alert, easily get agitated and very confused PSYCHIATRIC: calm , but non cooperative and confused Assessment & Plan Remarks Sepsis, shock: clinically resolved critically ill, stable ARF: resolving UTI, E.coli - ziegler S Ascitis, no e/o SBP WBC low in fluid, clx negtative Acute VDRF, PNA vs ARDS (more likely) - improving infiltrates SBP clx negative so far, but cell count cw SBP Leukocytosis , leukemoid reaction: slightly better WBC Diarrhea, c.diff negative, bu clinically very suspicious for C.diff No spseudomembrannes on flex sig. sigmoid mass is a high grade adenoma New PNA - start zosyn get sputum clx - monitor WBC monitor clinically Eda Hodge MD May 13, 2017 15:33
[2017-05-13] MEDS: PIPERACIL-TAZO 4.5 GM PREMIX 100 ML IV SCH ×2 (16:32→22:27)
[2017-05-14] VITALS (7 sets, daily range): BP systolic 100–147; BP diastolic 56–81; PULSE 90–103; RESP 17–20; TEMP 95.4–98.9; O2SAT 90–99
[2017-05-14] MEDS: OCTREOTIDE INJ 50 MCG/ML AMP IV PUSH SCH (04:26)
[2017-05-14] MEDS: PIPERACIL-TAZO 4.5 GM PREMIX 100 ML IV SCH ×4 (04:26→21:44)
[2017-05-14] MEDS: INSULIN NovoLIN REGULAR SUPPLEMENTAL SCALE SQ SCH ×4 (08:00→21:00)
[2017-05-14] MEDS: HYDROCORTISONE SOD SUCCINATE 100 MG VIAL IV PUSH SCH (08:13)
[2017-05-14] MEDS: QUEtiapine FUMARATE 25 MG TAB PO SCH ×2 (08:13→12:49)
[2017-05-14] MEDS: RIFAXIMIN 550 MG TAB PO SCH ×2 (08:13→21:44)
[2017-05-14] MEDS: PANTOPRAZOLE SOD 40 MG DELAYED RELEASE TAB PO SCH (08:13)
[2017-05-14] MEDS: FOLIC ACID 1 MG TAB PO SCH (08:13)
[2017-05-14] MEDS: CALCIUM CARBONATE 1.25 GM (CA 500 MG) TAB PO SCH ×2 (08:13→21:44)
[2017-05-14] MEDS: MULTIVITAMIN TAB PO SCH (08:13)
[2017-05-14] MEDS: LACTULOSE SYRUP 20 GM/30 ML CUP PO SCH (08:14)
[2017-05-14] MEDS: THIAMINE HCL 100 MG TAB PO SCH (08:14)
[2017-05-14] MEDS: SODIUM CHLORIDE 0.9% FLUSH 10 ML FLUSH IV FLUSH SCH ×2 (09:00→21:44)
[2017-05-14] MEDS: RESP: ALBUTEROL 2.5 MG/IPRATROPIUM 0.5 MG NEB (SCH) NEB ×4 (09:02→20:00)
[2017-05-14] MEDS: FUROSEMIDE 20 MG TAB PO SCH (09:49)
[2017-05-14 11:52] LABS: HCV RNA PCR IU/ML LESS THAN 15 IU/mL (0-14); HCV RNA PCR LOGIU/ML LESS THAN 1.18 (0-1.18)
--- NOTE | 2017-05-14 12:13 | HHI.HCPN ---
Reason for visit a. To assist with evaluation and management of symptoms including: encephalopathy, dyspnea b. To assist medical decision maker(s) with: better understanding of current medical conditions; weighing benefits/burdens of medical treatment options; making medical treatment decisions. Subjective/Interval History Patient status post sigmoidoscopy 05/10 with findings of 5 x 5 cm friable mass. Gen. surgery, oncology- pt not a good candidate for surgical or chemotherapy interventions due to poor performance status, debilitated state and significant encephalopathy. Patient was extubated 05/06, has tolerated nasal cannula since. Remains confused at times verbalizing them generally not able to make his needs known or clearly communicate. Rectosigmoid mass pathology with no evidence of malignancy. Oncology has signed off. Psychiatry consulted today to evaluate for medical decision-making capacity. Patient was seen by Dr. Rossi, Patient was found to lack decision-making capacity to participating in goals of care at this time. Pt s/p ID reconsult yesterday, for CXR + rt lung airspace disease, could represent infectious process. ID added zosyn. Cont to tolerate NC. Pt with some confusion. Proxy yesterday talking w palliative and CM about discharge w hospice. D/w CM today, and hospice admissions nurse today. Pt seen in room no visitors present. He is alert oriented to self, year though not place or conditions. When asked where he is at he tells me [place]", ask where that is he tells me " on top of the [facility] building. When asked why he is here he tells me "because they keep saving my life". He has no insight to hospitalization otherwise. He is cooperative, pleasant. Tells me he plans on sleeping today. Says feeling "pretty good" , denies dyspnea or any other complaints. Call to proxy Opal- review w her current assessment, recent findings of possible pneumonia, options to cont aggressive tx versus comfort only via hospice. She informs that she would want comfort measures via hospice, however she really wants to try to get patient back to his home where she can care for him. She endorses that she cared for her [id number]-[id number] he was on hospice and very debilitated and that included " changing his diapers, and watching him via a baby monitor", she feels that she would be able to care for Idris at home, and feels that that is what he would want most at end-of-life is to be home if at all possible. She endorses that with hospice help she could care for him, and if he worsens in terms of his symptoms then she could seek transfer to a care center. She requests to proceed with hospice enrollment with the hopes of getting patient to his known home in the coming days. Discuss all the above with case management, hospice admissions. . Advance Directives Living Will: Never completed Health Care Surrogate: Never completed Durable Power of New Business Clerk: Never completed Advance Directive Specifics Health Care Surrogate(s): Patient's close friend Opal Leonardo is serving as healthcare proxy decision maker. No next of kin has been identified. . Objective Vital Signs Date Time Temp Pulse Resp B/P (MAP) Pulse Ox O2 Delivery O2 Flow Rate FiO2 05/14/17 08:00 95.5 90 18 147/81 (103) 96 05/14/17 00:00 98.9 97 20 121/66 (84) 98 05/13/17 20:57 97 Nasal Cannula 3.00 05/13/17 20:15 98.8 90 20 113/67 (82) 97 05/13/17 20:11 97 Nasal Cannula 3.00 05/13/17 16:00 97.0 98 16 129/78 (95) 98 05/13/17 12:00 96.4 92 18 188/76 (113) 100 Intake & Output 05/14/17 05/14/17 07:00 19:00 Intake Total 1120 ml Output Total 300 ml Balance 820 ml Intake Oral 920 ml IV Total 200 ml Output Urine Total 300 ml # Bowel Movements 1 Physical Exam CONSTITUTIONAL/GENERAL: Chronically ill-appearing patient, awake , confused, pleasant SKIN: Skin warm, dry. Chronic scaling, thickening noted to skin bilateral lower extremities especially to feet. HEAD: Atraumatic. Normocephalic. EYES: Pupils 3 mm, brisk reaction to light. No injection or drainage. Fundi not examined. CARDIOVASCULAR: Regular rate and rhythm , difficult to auscultate over loud verbalizations. Radial pulses palpable.+ Edema bilateral upper extremities RESPIRATORY/CHEST: Symmetric unlabored respirations on room air, lungs appear clear though difficult to hear over verbalizations. Breath sounds equal bilaterally. O2 via NC. GASTROINTESTINAL: Abdomen soft, round, no apparent tenderness, slightly distended. BS normoactive NEUROLOGICAL: awake , oriented to self only. Confused, no insight to illness or hospitalization. moving all 4 extremities some spontaneously. Follows simple commands. PSYCHIATRIC: Limited assessment due to clinical condition. No apparent anxiety/ distress noted. . Diagnostic Tests Laboratory Laboratory Tests Test 05/12/17 09:07 05/13/17 07:49 Hepatitis C RNA (PCR) IUs/ml LESS THAN 15 IU/mL (0-14) Hepatitis C RNA (PCR) log IUs/ml LESS THAN 1.18 (0-1.18) White Blood Count 26.3 TH/MM3 (4.0-11.0) Red Blood Count 3.35 MIL/MM3 (4.50-5.90) Hemoglobin 9.8 GM/DL (13.0-17.0) Hematocrit 30.9 % (39.0-51.0) Mean Corpuscular Volume 92.1 FL (80.0-100.0) Mean Corpuscular Hemoglobin 29.2 PG (27.0-34.0) Mean Corpuscular Hemoglobin Concent 31.8 % (32.0-36.0) Red Cell Distribution Width 19.9 % (11.6-17.2) Platelet Count 266 TH/MM3 (150-450) Mean Platelet Volume 9.0 FL (7.0-11.0) Blood Urea Nitrogen 29 MG/DL (7-18) Creatinine 1.06 MG/DL (0.60-1.30) Random Glucose 87 MG/DL (74-106) Calcium Level 7.7 MG/DL (8.5-10.1) Sodium Level 138 MEQ/L (136-145) Potassium Level 3.3 MEQ/L (3.5-5.1) Chloride Level 110 MEQ/L (98-107) Carbon Dioxide Level 17.0 MEQ/L (21.0-32.0) Anion Gap 11 MEQ/L (5-15) Estimat Glomerular Filtration Rate 70 ML/MIN (>89) Result Diagram: 05/13/17 0749 05/13/17 0749 Imaging Last Impressions Chest X-Ray 05/13/17 0000 Signed Impressions: Service Date/Time: May 07:28 - CONCLUSION: There is right lung airspace consolidation that is new. This could represent an infectious process in the appropriate clinical setting. Suggest follow-up to confirm resolution. Carmine Strong MD Liver Ultrasound 05/09/17 1000 Signed Impressions: Service Date/Time: Tuesday, May 09, 2017 17:16 - CONCLUSION: 1. Cirrhotic appearing liver with small amount of ascites. Ascites fluid primarily along the margin of the liver and spleen. 2. Prominent gallbladder wall with pericholecystic fluid. These findings are generally seen in the setting of liver cirrhosis but limit sensitivity for acute cholecystitis. Wallace Cordoba MD Abdomen/Pelvis CT 05/04/17 0000 Signed Impressions: Service Date/Time: Thursday, May 04, 2017 16:12 - CONCLUSION: 1. COPD changes with minimal bilateral effusions. 2. Small cirrhotic appearing liver with diffuse fatty infiltration. 3. Diffuse high density ascites throughout the abdomen similar in appearance to previous of 04/27/17. 4. Mild diffuse small bowel thickening with no evidence of obstruction. Andrzej Loaiza MD Brain MRI 05/02/17 0000 Signed Impressions: Service Date/Time: Tuesday, May 02, 2017 13:22 - CONCLUSION: 1. No evidence of acute infarction or acute hemorrhage. 2. Diffuse confluent disseminated white matter signal abnormalities in the supratentorial brain is nonspecific in appearance and could be due to diffuse white matter disease or ischemic process. Cliff Lugo MD Abdomen Ultrasound 04/30/17 0000 Signed Impressions: Service Date/Time: Sunday, April 30, 2017 11:40 - CONCLUSION: Moderate ascites is still present. Jesus Duncan MD Paracentesis 04/27/17 1452 Signed Impressions: Service Date/Time: Thursday, April 27, 2017 15:51 - CONCLUSION: 1. One complicated CT-guided paracentesis. 2. Profound hepatic steatosis. Wallace Cordoba MD Head CT 04/27/17 0000 Signed Impressions: Service Date/Time: Thursday, April 27, 2017 15:44 - CONCLUSION: Diffuse atrophy is present. Areas of encephalomalacia involving the right temporal tip and the left orbitofrontal cortices. No evidence of acute hemorrhage or edema Jesus Duncan MD Procedures 04/27/17 -Intubation, right IJ central line 04/28/17 -CT-guided Paracentesis, 4 L 05/06/17 -US guided right paracentesis 05/06/17 -extubation 05/10/17 -Flexible Sigmoidoscopy with biopsy . Assessment and Plan Disease Oriented Problem List: (1) COPD (chronic obstructive pulmonary disease) (2) Respiratory failure, acute (3) Tobacco abuse (4) Hepatic encephalopathy (5) Pneumonia (6) Severe sepsis (7) Acute kidney injury (8) Hypokalemia (9) Alcohol abuse (10) Metabolic acidosis Symptom Scale: (1) Dyspnea 0-10 Scale: Unable to quantify Comment: Currently tolerating O2 via nasal cannula. Extubated on 05/06/17. (2) Encephalopathy 0-10 Scale: Unable to quantify Comment: Persistent metabolic encephalopathy. Pertinent Non-Medical Issues Psychosocial:Per EMR patient reported to be homeless though at times resides in a hotel room. Per case management record- patient reports no Social Security number or contact persons. Per prior visit ID in EMR, note a scanned ID card documenting SSN #[id number]. During a prior visit in EMR 2014, contacts documented a brother Edin Goode @ [address] [place] [address] [phone]--> case management notes that the patient reports brother however he was living in that mobile home with his sister in law. Multiple hospitalizations note patient homeless and no other family reported. Searches through available resources via case management this admission with no additional family to contact. Discussed with legal 05/03/17 a proceed with friend as proxy. Spiritual: Not known Legal: Patient with persistent encephalopathy, unable to provide info on next of kin.Searches through available resources via case management/financial svs this admission with no additional family to contact. Discussed with legal 05/03 , may proceed with friend as proxy. 05/05/17 friend and rmo Joseph agrees to serve as healthcare proxy for this patient. Ethical issues impacting care: as stated above. . Important Contacts Rom/shahida Regalado [facility]. [phone] [facility] // [phone] office -serving as proxy as of 05/05/17 Patient previously reported a brother Edin Goode in [place] as a contact however this person during later visits was reported to be . No other family is known at this time. . Prognosis Condition is critical, Prognosis at this time guarded in terms of survival and recovery. Patient with long history of EtOH and various complications secondary to. Now with multiorgan failure requiring mechanical vent. He remains at risk for ongoing, medications and setbacks. If he does survive current acute hospitalization, he will likely have ongoing risk for further decline in complications. . Code Status: Full Code Plan * Legal decision maker: Patient unable to participate in medical decision- making given persistent encephalopathy. Evaluated by psych on 05/13/17, deemed not capacitated for medical decision-making. Unclear if he will regain capacity. No information on next of kin. Patient previously listed a brother as a contact during past hospitalizations, however per later records/admissions he later indicated this brother . 05/04/17 d/w legal dept, no return of family from [employer], may proceed w friend serving as proxy if she is willing/able . Friend and landlord Opal Leonardo serving as healthcare proxy as per [place] statute since 05/05/17. * Goals of care: Patient's friend Opal Leonardo acting as healthcare proxy decision maker, requests pt be d/c home with hospice services, and that she will care for him in the home setting. * CODE STATUS: Full code * SYMPTOMS: --Encephalopathy/AMS- persistent. Long history of EtOH abuse, seizures and secondary injuries. Likely multifactorial: Hepatic, renal dysfunction, sepsis, respiratory failure. Patient evaluated by psychiatry on 05/13/17, deemed not capacitated for medical decision-making. --Dyspnea-admitted with pneumonia, worsening respiratory status intubated-- extubated 05/06. Tolerated nasal cannula. On honey thick liquids, risk for aspiration and respiratory decompensation. + possible new pneumonia * Case discussed with family service caseworker Paula Marsh. * Palliative care will continue to follow during hospital course as condition evolves, to assist patient/decision-maker with understanding of medical conditions, weighing benefits/burdens of treatment options, for clarification of goals of treatment. Additionally will assist with any symptoms of palliative concern . Time Spent Total Floor Time (mins): 30 (chart review, PE, d/w proxy, CM and hospice admissions ) Attestation To help prompt me to consider important information that might be impacting today's encounter and assessment, information from prior notes written by myself or my colleagues may have been "brought forward" into today's note. My signature on this note, however, is an attestation that I personally performed the exam, history, and/or decision-making noted today, and, unless otherwise indicated, the interactions with patient, family, and staff as well as the review of records all occurred today. I also attest that the listed assessment and stated plan reflect my best clinical judgment today based on the combination of historical information, prior notes, and today's exam/ interactions. When time spent is documented, it refers only to time spent today by the signer, or if indicated, combined time spent today by collaborating physician/nurse practitioner. Liliam Shell May 14, 2017 12:13
--- NOTE | 2017-05-14 12:23 | HHI.PR ---
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 Patient is only oriented to his first and last name mouth but not place and dates. He was started on Zosyn yesterday for a new pulmonary infiltrate. Objective Vitals Vital Signs Date Time Temp Pulse Resp B/P (MAP) Pulse Ox O2 Delivery O2 Flow Rate FiO2 05/14/17 12:00 95.4 92 18 113/64 (80) 99 05/14/17 08:00 95.5 90 18 147/81 (103) 96 05/14/17 00:00 98.9 97 20 121/66 (84) 98 05/13/17 20:57 97 Nasal Cannula 3.00 05/13/17 20:15 98.8 90 20 113/67 (82) 97 05/13/17 20:11 97 Nasal Cannula 3.00 05/13/17 16:00 97.0 98 16 129/78 (95) 98 I/O 05/13/17 05/13/17 05/13/17 05/14/17 05/14/17 05/14/17 07:00 15:00 23:00 07:00 15:00 23:00 Intake Total 360 ml 1860 ml 320 ml Output Total 0 ml 0 ml 300 ml Balance 360 ml 1860 ml 20 ml Intake Oral 360 ml 1760 ml 120 ml IV Total 100 ml 200 ml Output Urine Total 0 ml 300 ml Drainage Total 0 ml # Voids 1 6 # Bowel Movements 2 2 1 Result Diagram: 05/13/17 0749 05/13/17 0749 Imaging Last Impressions Chest X-Ray 05/13/17 0000 Signed Impressions: Service Date/Time: May 07:28 - CONCLUSION: There is right lung airspace consolidation that is new. This could represent an infectious process in the appropriate clinical setting. Suggest follow-up to confirm resolution. Carmine Strong MD Liver Ultrasound 05/09/17 1000 Signed Impressions: Service Date/Time: Tuesday, May 09, 2017 17:16 - CONCLUSION: 1. Cirrhotic appearing liver with small amount of ascites. Ascites fluid primarily along the margin of the liver and spleen. 2. Prominent gallbladder wall with pericholecystic fluid. These findings are generally seen in the setting of liver cirrhosis but limit sensitivity for acute cholecystitis. Wallace Cordoba MD Abdomen/Pelvis CT 05/04/17 0000 Signed Impressions: Service Date/Time: Thursday, May 04, 2017 16:12 - CONCLUSION: 1. COPD changes with minimal bilateral effusions. 2. Small cirrhotic appearing liver with diffuse fatty infiltration. 3. Diffuse high density ascites throughout the abdomen similar in appearance to previous of 04/27/17. 4. Mild diffuse small bowel thickening with no evidence of obstruction. Andrzej Loaiza MD Brain MRI 05/02/17 0000 Signed Impressions: Service Date/Time: Tuesday, May 02, 2017 13:22 - CONCLUSION: 1. No evidence of acute infarction or acute hemorrhage. 2. Diffuse confluent disseminated white matter signal abnormalities in the supratentorial brain is nonspecific in appearance and could be due to diffuse white matter disease or ischemic process. Cliff Lugo MD Abdomen Ultrasound 04/30/17 0000 Signed Impressions: Service Date/Time: Sunday, April 30, 2017 11:40 - CONCLUSION: Moderate ascites is still present. Jesus Duncan MD Paracentesis 04/27/17 1452 Signed Impressions: Service Date/Time: Thursday, April 27, 2017 15:51 - CONCLUSION: 1. One complicated CT-guided paracentesis. 2. Profound hepatic steatosis. Wallace Cordoba MD Head CT 04/27/17 0000 Signed Impressions: Service Date/Time: Thursday, April 27, 2017 15:44 - CONCLUSION: Diffuse atrophy is present. Areas of encephalomalacia involving the right temporal tip and the left orbitofrontal cortices. No evidence of acute hemorrhage or edema Jesus Duncan MD Objective Remarks GENERAL: NAD SKIN: Warm and dry. HEAD: Normocephalic. EYES: No scleral icterus. No injection or drainage. NECK: Supple, trachea midline. No JVD or lymphadenopathy. CARDIOVASCULAR: Regular rate and rhythm without murmurs, gallops, or rubs. RESPIRATORY: Breath sounds equal bilaterally. No accessory muscle use. GASTROINTESTINAL: Abdomen soft, non-tender, nondistended. MUSCULOSKELETAL: No cyanosis, or edema. BACK: Nontender without obvious deformity. No CVA tenderness. A/P Problem List: (1) HCAP (healthcare-associated pneumonia) ICD Code: J18.9 - Pneumonia, unspecified organism (2) sigmoid colon mass (3) Abdominal pain ICD Code: R10.9 - Unspecified abdominal pain (4) Encephalopathy ICD Code: G93.40 - Encephalopathy, unspecified (5) Electrolyte abnormality ICD Code: E87.8 - Other disorders of electrolyte and fluid balance, not elsewhere classified (6) Hypernatremia ICD Code: E87.0 - Hyperosmolality and hypernatremia (7) Tobacco abuse ICD Code: Z72.0 - Tobacco abuse Status: Chronic (8) Respiratory failure, acute ICD Code: J96.00 - Acute respiratory failure, unspecified whether with hypoxia or hypercapnia (9) COPD (chronic obstructive pulmonary disease) ICD Code: J44.9 - COPD (chronic obstructive pulmonary disease) Status: Chronic Assessment and Plan 62-year-old man with HCAP Chest x-ray 05/13/17 finding of right lung airspace consolidation for which patient was started on Zosyn 05/13/17 by ID Maintain oxygen saturation above 92% DuoNeb when necessary, incentive spirometry, chest CPT 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 Decker - MRI brain 05/02: No evidence of infarction or hemorrhage - Repeat EEG 05/02: Severe encephalopathy - 04/27: EEG Mild- mod slowing. No epileptiform features. - On Thiamine, MVI, folic acid - Seizure precautions - On Seroquel - Appreciate input from psychiatry as patient deemed not decision making capacity Colonic mass - s/p sigmoidoscopy on 05/10 - Patient not a surgical candidate. - "Opal" Friend/ Landlord/ HCP with palliative care meeting - Poor prognosis. 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 - Hemo/Onc consult signed off - Appreciate input from palliative care medicine COPD - Nasal cannula to maintain saturations greater than equal to 92%. Currently in room air - Incentive spirometry while awake - As needed bronchodilator therapy every 2 hours when necessary - Continue to wean off hydrocortisone. Hypernatremia, resolved History of hepatitis C Hepatic steatosis - Pantoprazole for GI prophylaxis - Monitor LFT's, s/p CT guided paracentesis with removal 4 on 04/27 and repeat Paracentesis at bedside on 04/30 with 4L removal. - Repeat large vol paracentesis 05/05 shows cloudy ascites fluid indicating SBP - On lactulose 30 cc daily, Rifaximin. Will discontinue Sandostatin 50 mcg every 8 hours - Hepatitis C antibody positive SBP (spontaneous bacterial peritonitis) despite negative cultures Escherichia coli UTI Severe sepsis-resolved - Previously on Cefepime, oral vanco, IV flagyl) - BC 05/03: NGTD, 05/02 sputum: normal resp james - Urine culture: E.coli. C-diff 05/01, 05/04 and 05/08 negative Leukocytosis Normocytic anemia - Monitor CBC. GI prophylaxis with Protonix and DVT prophylaxis with SCDs. Mian Peguero MD May 14, 2017 12:23
--- NOTE | 2017-05-14 12:58 | HHI.GIFU ---
Subjective Remarks Pt resting in bed. Says he was doing okay until 5 minutes ago. (Jennifer Guerrero) Objective Vitals I&O Vital Signs Date Time Temp Pulse Resp B/P (MAP) Pulse Ox O2 Delivery O2 Flow Rate FiO2 05/14/17 12:00 95.4 92 18 113/64 (80) 99 05/14/17 09:02 98 Nasal Cannula 3.00 05/14/17 08:00 95.5 90 18 147/81 (103) 96 05/14/17 00:00 98.9 97 20 121/66 (84) 98 05/13/17 20:57 97 Nasal Cannula 3.00 05/13/17 20:15 98.8 90 20 113/67 (82) 97 05/13/17 20:11 97 Nasal Cannula 3.00 05/13/17 16:00 97.0 98 16 129/78 (95) 98 I/O 05/13/17 05/13/17 05/13/17 05/14/17 05/14/17 05/14/17 07:00 15:00 23:00 07:00 15:00 23:00 Intake Total 360 ml 1860 ml 320 ml Output Total 0 ml 0 ml 300 ml Balance 360 ml 1860 ml 20 ml Intake Oral 360 ml 1760 ml 120 ml IV Total 100 ml 200 ml Output Urine Total 0 ml 300 ml Drainage Total 0 ml # Voids 1 6 # Bowel Movements 2 2 1 Laboratory Date/Time Source Procedure Growth Status 05/03/17 10:10 Blood Peripheral Aerobic Blood Culture - Final NO GROWTH IN 5 DAYS Complete 05/03/17 10:10 Blood Peripheral Anaerobic Blood Culture - Final NO GROWTH IN 5 DAYS Complete 05/06/17 14:55 Fluid Peritoneal Fluid Gram Stain - Final Complete 05/06/17 14:55 Fluid Peritoneal Fluid Body Fluid Culture - Final NO GROWTH IN 72 HRS.--AEROBICALLY OR ... Complete 05/02/17 08:10 Sputum Endotracheal Gram Stain - Final Complete 05/02/17 08:10 Sputum Endotracheal Sputum Culture - Final HEAVY GROWTH NORMAL RESPIRATORY SHERYL Complete 04/26/17 20:10 Urine Random Urine Urine Culture - Final Escherichia Coli Complete Physical Exam HEENT: Normocephalic; atraumatic; CHEST: diminished CARDIAC: RRR ABDOMEN: Distended,semifirm, nontender, (+) hepatosplenomegaly; bowel sounds are present in all four quadrants. ostomy bag LLQ. EXTREMITIES: No edema. SKIN: Normal; no rash; + mild jaundice. 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 C. Diff toxin negative x 2. s/P flex sig found large circumferential mass 5x5 cm sigmoid. 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 Per GS poor surgical candidate, per oncology poor candidate for tx given neuro status. Per palliative care notes pt's HCP wants hospice on d/c. Liver cirrhosis/encephalopathy- Past history of ETOH abuse. Liver US (05/09) --> Cirrhotic appearing liver with small amount of ascites. Ascitic fluid primarily along the margin of the liver and spleen. Prominent gallbladder wall with pericholecystic fluid. These findings are generally seen in the setting of liver cirrhosis but limit sensitive for acute cholecystitis. on xifaxan, lactulose Ascites- Paracentesis (05/04) 4 L could ascitic fluid removed. SAAG- 1.9 MELD- 18 no growth peritoneal fluid Abdomen remains distended, softer today. History of Hepatitis C - hep c ab reactive, quant <15 Spontaneous bacterial peritonitis, severe sepsis, COPD, hypernatremia (resolved) - per attending Plan - adv diet, pureed with honey thick per ST - Continue xifaxan - Continue lactulose - Monitor labs - supportive care This pt has been seen and examined by myself and Dr. Villasenor and this note is written on his behalf (Jennifer Guerrero) Physician Comments Seen and examined with SILVANA, Palliative care on case. No active bleeding. Not a candidate for any agressive treatment. Will sign off, reconsult as needed. thank you (Shweta Villasenor MD) Jennifer Guerrero May 14, 2017 12:58 Shweta Villasenor MD May 14, 2017 14:58
[2017-05-14] MEDS ORDERED: POTASSIUM CHLORIDE 25 MEQ EFFERVESCENT TAB PO ONE (14:00)
[2017-05-14] MEDS: LORazepam 1 MG TAB PO PRN (21:44)
[2017-05-15] VITALS: BP 103/56; PULSE 104; RESP 16; TEMP 95.9; O2SAT 92
[2017-05-15] MEDS: PIPERACIL-TAZO 4.5 GM PREMIX 100 ML IV SCH ×4 (03:22→21:27)
[2017-05-15 06:35] LABS: AUTOMATED NEUTROPHIL # 14.5 TH/MM3 (1.8-7.7); BASOPHIL # 0.1 TH/MM3 (0-0.2); BASOPHIL % 0.5 % (0.0-2.0); EOSINOPHIL # 0.4 TH/MM3 (0-0.4); EOSINOPHIL % 2.4 % (0.0-4.0); HEMATOCRIT 29.8 % (39.0-51.0); HEMO FLAGS DIFF FINAL; LYMPH % 6.1 % (9.0-44.0); LYMPHOCYTE # 1.1 TH/MM3 (1.0-4.8); MEAN CELL VOLUME 93.7 FL (80.0-100.0); MEAN CORPUSCULAR HEMOGLOBIN 28.7 PG (27.0-34.0); MEAN CORPUSCULAR HGB CONC 30.7 % (32.0-36.0); MONO % 6.6 % (0.0-8.0); NEUT % 84.4 % (16.0-70.0); PLATELET COUNT 229 TH/MM3 (150-450); RED BLOOD COUNT 3.18 MIL/MM3 (4.50-5.90); RED CELL DISTRIBUTION WIDTH 21.5 % (11.6-17.2); WHITE BLOOD COUNT 17.2 TH/MM3 (4.0-11.0)
[2017-05-15 08:00] VITALS: BP 94/58; PULSE 94; RESP 15; TEMP 96.5; O2SAT 93
[2017-05-15] MEDS: INSULIN NovoLIN REGULAR SUPPLEMENTAL SCALE SQ SCH ×4 (08:00→19:54)
[2017-05-15] MEDS: RESP: ALBUTEROL 2.5 MG/IPRATROPIUM 0.5 MG NEB (SCH) NEB ×4 (08:00→21:36)
[2017-05-15] MEDS: CALCIUM CARBONATE 1.25 GM (CA 500 MG) TAB PO SCH ×2 (08:17→19:50)
[2017-05-15] MEDS: RIFAXIMIN 550 MG TAB PO SCH ×2 (08:17→19:51)
[2017-05-15] MEDS: HYDROCORTISONE SOD SUCCINATE 100 MG VIAL IV PUSH SCH (08:17)
[2017-05-15] MEDS: FOLIC ACID 1 MG TAB PO SCH (08:17)
[2017-05-15] MEDS: THIAMINE HCL 100 MG TAB PO SCH (08:17)
[2017-05-15] MEDS: MULTIVITAMIN TAB PO SCH (08:17)
[2017-05-15] MEDS: LACTULOSE SYRUP 20 GM/30 ML CUP PO SCH (08:17)
[2017-05-15] MEDS: FUROSEMIDE 20 MG TAB PO SCH (08:18)
[2017-05-15] MEDS: QUEtiapine FUMARATE 25 MG TAB PO SCH ×2 (08:19→13:25)
[2017-05-15] MEDS: SODIUM CHLORIDE 0.9% FLUSH 10 ML FLUSH IV FLUSH SCH ×2 (08:19→19:51)
[2017-05-15] MEDS: PANTOPRAZOLE SOD 40 MG DELAYED RELEASE TAB PO SCH (08:19)
--- NOTE | 2017-05-15 10:29 | HHI.PR ---
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 Patient is only oriented to his first and last name mouth but not place and dates. He was started on Zosyn yesterday for a new pulmonary infiltrate. 05/15/17-patient seen and examined , no acute event overnight and stable. Objective Vitals Vital Signs Date Time Temp Pulse Resp B/P (MAP) Pulse Ox O2 Delivery O2 Flow Rate FiO2 05/15/17 09:02 3.00 05/15/17 08:00 96.5 94 15 94/58 (70) 93 05/15/17 00:00 95.9 104 16 103/56 (72) 92 05/14/17 20:00 Nasal Cannula 3.00 05/14/17 20:00 96.2 103 17 109/58 (75) 92 05/14/17 16:07 99 Nasal Cannula 3.00 05/14/17 16:00 95.5 101 18 100/56 (71) 90 05/14/17 12:00 95.4 92 18 113/64 (80) 99 I/O 05/14/17 05/14/17 05/14/17 05/15/17 05/15/17 05/15/17 06:59 14:59 22:59 06:59 14:59 22:59 Intake Total 320 ml 1000 ml 460 ml Output Total 300 ml 250 ml Balance 20 ml 1000 ml 210 ml Intake Oral 120 ml 700 ml 360 ml IV Total 200 ml 300 ml 100 ml Output Urine Total 300 ml Drainage Total 250 ml # Voids 2 1 # Bowel Movements 1 1 Result Diagram: 05/15/17 0549 05/13/17 0749 Objective Remarks GENERAL: NAD SKIN: Warm and dry. HEAD: Normocephalic. EYES: No scleral icterus. No injection or drainage. NECK: Supple, trachea midline. No JVD or lymphadenopathy. CARDIOVASCULAR: Regular rate and rhythm without murmurs, gallops, or rubs. RESPIRATORY: Breath sounds equal bilaterally. No accessory muscle use. GASTROINTESTINAL: Abdomen soft, non-tender, nondistended. MUSCULOSKELETAL: No cyanosis, or edema. BACK: Nontender without obvious deformity. No CVA tenderness. A/P Problem List: (1) HCAP (healthcare-associated pneumonia) ICD Code: J18.9 - Pneumonia, unspecified organism (2) sigmoid colon mass (3) Abdominal pain ICD Code: R10.9 - Unspecified abdominal pain (4) Encephalopathy ICD Code: G93.40 - Encephalopathy, unspecified (5) Electrolyte abnormality ICD Code: E87.8 - Other disorders of electrolyte and fluid balance, not elsewhere classified (6) Hypernatremia ICD Code: E87.0 - Hyperosmolality and hypernatremia (7) Tobacco abuse ICD Code: Z72.0 - Tobacco abuse Status: Chronic (8) Respiratory failure, acute ICD Code: J96.00 - Acute respiratory failure, unspecified whether with hypoxia or hypercapnia (9) COPD (chronic obstructive pulmonary disease) ICD Code: J44.9 - COPD (chronic obstructive pulmonary disease) Status: Chronic Assessment and Plan 62-year-old man with HCAP Chest x-ray 05/13/17 finding of right lung airspace consolidation for which patient was started on Zosyn 05/13/17 by ID Maintain oxygen saturation above 92% DuoNeb when necessary, incentive spirometry, chest CPT 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 Decker - MRI brain 05/02: No evidence of infarction or hemorrhage - Repeat EEG 05/02: Severe encephalopathy - 04/27: EEG Mild- mod slowing. No epileptiform features. - On Thiamine, MVI, folic acid - Seizure precautions - On Seroquel - Appreciate input from psychiatry as patient deemed not decision making capacity Colonic mass - s/p sigmoidoscopy on 05/10 - Patient not a surgical candidate. - "Opal" Friend/ Landlord/ HCP with palliative care meeting - Poor prognosis. 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 - Hemo/Onc consult signed off - Appreciate input from palliative care medicine COPD - Nasal cannula to maintain saturations greater than equal to 92%. Currently in room air - Incentive spirometry while awake - As needed bronchodilator therapy every 2 hours when necessary - Continue to wean off hydrocortisone. Hypernatremia, resolved History of hepatitis C Hepatic steatosis - Pantoprazole for GI prophylaxis - Monitor LFT's, s/p CT guided paracentesis with removal 4 on 04/27 and repeat Paracentesis at bedside on 04/30 with 4L removal. - Repeat large vol paracentesis 05/05 shows cloudy ascites fluid indicating SBP - On lactulose 30 cc daily, Rifaximin. s/p Sandostatin 50 mcg every 8 hours - Hepatitis C antibody positive SBP (spontaneous bacterial peritonitis) despite negative cultures Escherichia coli UTI Severe sepsis-resolved - Previously on Cefepime, oral vanco, IV flagyl) - BC 05/03: NGTD, 05/02 sputum: normal resp james - Urine culture: E.coli. C-diff 05/01, 05/04 and 05/08 negative Leukocytosis Normocytic anemia - Monitor CBC. Lice Start Permethrin topical GI prophylaxis with Protonix and DVT prophylaxis with SCDs. Mian Peguero MD May 15, 2017 10:29
[2017-05-15] MEDS ORDERED: PERMETHRIN 1% LOTION 60 ML BTL TOPICAL ONE (10:30)
[2017-05-15 11:49] LABS: BICARBONATE 19.7 MEQ/L (21.0-32.0); POTASSIUM 3.4 MEQ/L (3.5-5.1)
[2017-05-15 12:00] VITALS: BP 96/53; PULSE 94; RESP 17; TEMP 95.7; O2SAT 91
[2017-05-15 12:32] LABS: CALCIUM-PROTEIN CORRECTED 7.9 MG/DL (8.5-10.1)
[2017-05-15 15:53] LABS: HEPATITIS C RNA GENOTYPE NOT DETECTED (NOT DETECTD)
[2017-05-15 16:00] VITALS: BP 98/48; PULSE 83; RESP 18; TEMP 97; O2SAT 93
[2017-05-15 20:03] VITALS: BP 100/64; PULSE 102; RESP 18; TEMP 96.9; O2SAT 98
[2017-05-15 23:55] VITALS: BP 104/64; PULSE 100; RESP 17; TEMP 97.9; O2SAT 100
[2017-05-16] MEDS: PIPERACIL-TAZO 4.5 GM PREMIX 100 ML IV SCH ×4 (04:35→21:59)
[2017-05-16] MEDS: RIFAXIMIN 550 MG TAB PO SCH ×2 (07:58→20:04)
[2017-05-16] MEDS: FOLIC ACID 1 MG TAB PO SCH (07:58)
[2017-05-16] MEDS: LACTULOSE SYRUP 20 GM/30 ML CUP PO SCH (07:58)
[2017-05-16] MEDS: CALCIUM CARBONATE 1.25 GM (CA 500 MG) TAB PO SCH ×2 (07:59→20:04)
[2017-05-16] MEDS: MULTIVITAMIN TAB PO SCH (07:59)
[2017-05-16] MEDS: PANTOPRAZOLE SOD 40 MG DELAYED RELEASE TAB PO SCH (07:59)
[2017-05-16] MEDS: THIAMINE HCL 100 MG TAB PO SCH (07:59)
[2017-05-16] MEDS: FUROSEMIDE 20 MG TAB PO SCH (07:59)
[2017-05-16] MEDS: HYDROCORTISONE SOD SUCCINATE 100 MG VIAL IV PUSH SCH (07:59)
[2017-05-16] MEDS: QUEtiapine FUMARATE 25 MG TAB PO SCH ×2 (07:59→12:00)
[2017-05-16 08:00] VITALS: BP_SYST 103; BP_SYST 116; BP_DIAS 57; BP_DIAS 70; PULSE 78; PULSE 93; RESP 17; RESP 19; TEMP 96.8; TEMP 97.1; O2SAT 97; O2SAT 99
[2017-05-16] MEDS: SODIUM CHLORIDE 0.9% FLUSH 10 ML FLUSH IV FLUSH SCH ×2 (08:00→20:04)
[2017-05-16] MEDS: INSULIN NovoLIN REGULAR SUPPLEMENTAL SCALE SQ SCH ×4 (08:00→20:05)
[2017-05-16] MEDS: RESP: ALBUTEROL 2.5 MG/IPRATROPIUM 0.5 MG NEB (SCH) NEB ×4 (08:04→21:08)
[2017-05-16 08:07] VITALS: O2SAT 94
--- NOTE | 2017-05-16 09:55 | HHI.PR ---
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 Patient is only oriented to his first and last name mouth but not place and dates. He was started on Zosyn yesterday for a new pulmonary infiltrate. 05/15/17-patient seen and examined , no acute event overnight and stable. 05/16/17-patient seen and examined, oriented to self date of the year of and place of . More talkative today. Objective Vitals Vital Signs Date Time Temp Pulse Resp B/P (MAP) Pulse Ox O2 Delivery O2 Flow Rate FiO2 05/16/17 08:07 94 Nasal Cannula 3.00 05/16/17 08:00 96.8 93 17 103/57 (72) 99 05/15/17 23:55 97.9 100 17 104/64 (77) 100 05/15/17 20:03 96.9 102 18 100/64 (76) 98 05/15/17 19:48 Nasal Cannula 3.00 05/15/17 16:00 97.0 83 18 98/48 (65) 93 05/15/17 12:00 95.7 94 17 96/53 (67) 91 I/O 05/15/17 05/15/17 05/15/17 05/16/17 05/16/17 05/16/17 07:00 15:00 23:00 07:00 15:00 23:00 Intake Total 460 ml 675 ml 860 ml Output Total 250 ml 400 ml 50 ml Balance 210 ml 275 ml 810 ml Intake Oral 360 ml 475 ml 760 ml IV Total 100 ml 200 ml 100 ml Drainage Total 250 ml 400 ml 50 ml # Voids 1 1 5 # Bowel Movements 2 5 Result Diagram: 05/15/17 0549 05/15/17 1050 Objective Remarks GENERAL: NAD SKIN: Warm and dry. HEAD: Normocephalic. EYES: No scleral icterus. No injection or drainage. NECK: Supple, trachea midline. No JVD or lymphadenopathy. CARDIOVASCULAR: Regular rate and rhythm without murmurs, gallops, or rubs. RESPIRATORY: Breath sounds equal bilaterally. No accessory muscle use. GASTROINTESTINAL: Abdomen soft, non-tender, nondistended. MUSCULOSKELETAL: No cyanosis, or edema. BACK: Nontender without obvious deformity. No CVA tenderness. A/P Problem List: (1) HCAP (healthcare-associated pneumonia) ICD Code: J18.9 - Pneumonia, unspecified organism (2) sigmoid colon mass (3) Abdominal pain ICD Code: R10.9 - Unspecified abdominal pain (4) Encephalopathy ICD Code: G93.40 - Encephalopathy, unspecified (5) Electrolyte abnormality ICD Code: E87.8 - Other disorders of electrolyte and fluid balance, not elsewhere classified (6) Hypernatremia ICD Code: E87.0 - Hyperosmolality and hypernatremia (7) Tobacco abuse ICD Code: Z72.0 - Tobacco abuse Status: Chronic (8) Respiratory failure, acute ICD Code: J96.00 - Acute respiratory failure, unspecified whether with hypoxia or hypercapnia (9) COPD (chronic obstructive pulmonary disease) ICD Code: J44.9 - COPD (chronic obstructive pulmonary disease) Status: Chronic Assessment and Plan 62-year-old man with HCAP Chest x-ray 05/13/17 finding of right lung airspace consolidation, currently on Zosyn 05/13/17 by ID Maintain oxygen saturation above 92% DuoNeb when necessary, incentive spirometry, chest CPT 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 Decker - MRI brain 05/02: No evidence of infarction or hemorrhage - Repeat EEG 05/02: Severe encephalopathy - 04/27: EEG Mild- mod slowing. No epileptiform features. - On Thiamine, MVI, folic acid - Seizure precautions - On Seroquel - Appreciate input from psychiatry as patient deemed not decision making capacity Colonic mass - s/p sigmoidoscopy on 05/10 - Patient not a surgical candidate. - "Opal" Friend/ Landlord/ HCP with palliative care meeting - Poor prognosis. 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 - Hemo/Onc consult signed off - Appreciate input from palliative care medicine COPD No exacerbation - Nasal cannula to maintain saturations greater than equal to 92%. - Incentive spirometry while awake - As needed bronchodilator therapy every 2 hours when necessary - d/c hydrocortisone and start prednisone 20 mg daily. Hypernatremia, resolved History of hepatitis C Hepatic steatosis - Pantoprazole for GI prophylaxis - Monitor LFT's, s/p CT guided paracentesis with removal 4 on 04/27 and repeat Paracentesis at bedside on 04/30 with 4L removal. - Repeat large vol paracentesis 05/05 shows cloudy ascites fluid indicating SBP - On lactulose 30 cc daily, Rifaximin. s/p Sandostatin 50 mcg every 8 hours - Hepatitis C antibody positive SBP (spontaneous bacterial peritonitis) despite negative cultures Escherichia coli UTI Severe sepsis-resolved - Previously on Cefepime, oral vanco, IV flagyl) - BC 05/03: NGTD, 05/02 sputum: normal resp james - Urine culture: E.coli. C-diff 05/01, 05/04 and 05/08 negative Leukocytosis Normocytic anemia - Monitor CBC. Lice s/p Permethrin topical tx 05/15/17 GI prophylaxis with Protonix and DVT prophylaxis with SCDs. Mian Peguero MD May 16, 2017 09:55
[2017-05-16 12:00] VITALS: BP 92/54; PULSE 87; RESP 16; TEMP 97.6; O2SAT 99
[2017-05-16 16:00] VITALS: BP 101/59; PULSE 97; RESP 19; TEMP 97.5; O2SAT 98
[2017-05-16 20:17] VITALS: BP 115/64; PULSE 95; RESP 18; TEMP 98.7; O2SAT 99
[2017-05-16 21:08] VITALS: O2SAT 93
[2017-05-17 00:24] VITALS: BP 119/72; PULSE 96; RESP 17; TEMP 96.6; O2SAT 96
[2017-05-17] MEDS: PIPERACIL-TAZO 4.5 GM PREMIX 100 ML IV SCH ×3 (04:11→16:32)
[2017-05-17] MEDS: RESP: ALBUTEROL 2.5 MG/3 ML NEB (PRN) NEB (04:42)
[2017-05-17] MEDS: FUROSEMIDE 20 MG TAB PO SCH (07:55)
[2017-05-17] MEDS: THIAMINE HCL 100 MG TAB PO SCH (07:55)
[2017-05-17] MEDS: MULTIVITAMIN TAB PO SCH (07:55)
[2017-05-17] MEDS: CALCIUM CARBONATE 1.25 GM (CA 500 MG) TAB PO SCH (07:55)
[2017-05-17] MEDS: PANTOPRAZOLE SOD 40 MG DELAYED RELEASE TAB PO SCH (07:55)
[2017-05-17] MEDS: RIFAXIMIN 550 MG TAB PO SCH (07:55)
[2017-05-17] MEDS: QUEtiapine FUMARATE 25 MG TAB PO SCH ×2 (07:55→11:15)
[2017-05-17] MEDS: FOLIC ACID 1 MG TAB PO SCH (07:55)
[2017-05-17] MEDS: SODIUM CHLORIDE 0.9% FLUSH 10 ML FLUSH IV FLUSH SCH (07:56)
[2017-05-17] MEDS: LACTULOSE SYRUP 20 GM/30 ML CUP PO SCH (07:56)
[2017-05-17 08:00] VITALS: BP 126/71; PULSE 96; RESP 20; TEMP 97.3; O2SAT 96
[2017-05-17] MEDS: RESP: ALBUTEROL 2.5 MG/IPRATROPIUM 0.5 MG NEB (SCH) NEB ×2 (08:00→11:06)
[2017-05-17] MEDS: INSULIN NovoLIN REGULAR SUPPLEMENTAL SCALE SQ SCH (08:00)
[2017-05-17] MEDS ORDERED: predniSONE 20 MG TAB PO SCH (09:00)
[2017-05-17 09:09] VITALS: O2SAT 95
--- NOTE | 2017-05-17 10:52 | HHI.PR ---
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 Patient is only oriented to his first and last name mouth but not place and dates. He was started on Zosyn yesterday for a new pulmonary infiltrate. 05/15/17-patient seen and examined , no acute event overnight and stable. 05/16/17-patient seen and examined, oriented to self date of the year of and place of . More talkative today. 05/17/17-patient seen and examined, refusing to take his medication this morning. Alert. States he wants end everything now Objective Vitals Vital Signs Date Time Temp Pulse Resp B/P (MAP) Pulse Ox O2 Delivery O2 Flow Rate FiO2 05/17/17 09:09 95 Nasal Cannula 3.00 05/17/17 09:04 Nasal Cannula 3.00 05/17/17 08:00 97.3 96 20 126/71 (89) 96 05/17/17 00:24 96.6 96 17 119/72 (88) 96 05/16/17 21:08 93 Nasal Cannula 3.00 05/16/17 20:17 98.7 95 18 115/64 (81) 99 05/16/17 20:05 Nasal Cannula 3.00 05/16/17 16:00 97.5 97 19 101/59 (73) 98 05/16/17 12:00 97.6 87 16 92/54 (67) 99 I/O 05/16/17 05/16/17 05/16/17 05/17/17 05/17/17 05/17/17 06:59 14:59 22:59 06:59 14:59 22:59 Intake Total 860 ml 100 ml 600 ml 860 ml 120 ml Output Total 50 ml 1 ml 10 ml Balance 810 ml 100 ml 599 ml 850 ml 120 ml Intake Oral 760 ml 400 ml 760 ml 120 ml IV Total 100 ml 100 ml 200 ml 100 ml Output Urine Total 1 ml Drainage Total 50 ml 10 ml # Voids 5 5 # Bowel Movements 5 2 5 Result Diagram: 05/15/17 0549 05/15/17 1050 Objective Remarks GENERAL: NAD SKIN: Warm and dry. HEAD: Normocephalic. EYES: No scleral icterus. No injection or drainage. NECK: Supple, trachea midline. No JVD or lymphadenopathy. CARDIOVASCULAR: Regular rate and rhythm without murmurs, gallops, or rubs. RESPIRATORY: Breath sounds equal bilaterally. No accessory muscle use. GASTROINTESTINAL: Abdomen soft, non-tender, nondistended. MUSCULOSKELETAL: No cyanosis, or edema. BACK: Nontender without obvious deformity. No CVA tenderness. A/P Problem List: (1) HCAP (healthcare-associated pneumonia) ICD Code: J18.9 - Pneumonia, unspecified organism (2) sigmoid colon mass (3) Abdominal pain ICD Code: R10.9 - Unspecified abdominal pain (4) Encephalopathy ICD Code: G93.40 - Encephalopathy, unspecified (5) Electrolyte abnormality ICD Code: E87.8 - Other disorders of electrolyte and fluid balance, not elsewhere classified (6) Hypernatremia ICD Code: E87.0 - Hyperosmolality and hypernatremia (7) Tobacco abuse ICD Code: Z72.0 - Tobacco abuse Status: Chronic (8) Respiratory failure, acute ICD Code: J96.00 - Acute respiratory failure, unspecified whether with hypoxia or hypercapnia (9) COPD (chronic obstructive pulmonary disease) ICD Code: J44.9 - COPD (chronic obstructive pulmonary disease) Status: Chronic Assessment and Plan 62-year-old man with HCAP Chest x-ray 05/13/17 finding of right lung airspace consolidation, currently on Zosyn 05/13/17 by ID Maintain oxygen saturation above 92% Continue DuoNeb when necessary, incentive spirometry, chest CPT 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 Decker - MRI brain 05/02: No evidence of infarction or hemorrhage - Repeat EEG 05/02: Severe encephalopathy - 04/27: EEG Mild- mod slowing. No epileptiform features. - On Thiamine, MVI, folic acid - Seizure precautions - On Seroquel - Appreciate input from psychiatry as patient deemed not decision making capacity Colonic mass - s/p sigmoidoscopy on 05/10 - Patient not a surgical candidate. - "Opal" Friend/ Landlord/ HCP with palliative care meeting - Poor prognosis. 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 - Hemo/Onc consult signed off - Appreciate input from palliative care medicine COPD No exacerbation - Nasal cannula to maintain saturations greater than equal to 92%. - Incentive spirometry while awake - As needed bronchodilator therapy every 2 hours when necessary - Continue prednisone 20 mg daily. Hypernatremia, resolved History of hepatitis C Hepatic steatosis - Pantoprazole for GI prophylaxis - Monitor LFT's, s/p CT guided paracentesis with removal 4 on 04/27 and repeat Paracentesis at bedside on 04/30 with 4L removal. - Repeat large vol paracentesis 05/05 shows cloudy ascites fluid indicating SBP - On lactulose 30 cc daily, Rifaximin. s/p Sandostatin 50 mcg every 8 hours - Hepatitis C antibody positive SBP (spontaneous bacterial peritonitis) despite negative cultures Escherichia coli UTI Severe sepsis-resolved - Previously on Cefepime, oral vanco, IV flagyl) - BC 05/03: NGTD, 05/02 sputum: normal resp james - Urine culture: E.coli. C-diff 05/01, 05/04 and 05/08 negative Leukocytosis Normocytic anemia - Monitor CBC. Lice s/p Permethrin topical tx 05/15/17 GI prophylaxis with Protonix and DVT prophylaxis with SCDs. Mian Peguero MD May 17, 2017 10:52
[2017-05-17 12:00] VITALS: BP 134/63; PULSE 99; RESP 19; TEMP 97.8; O2SAT 98
--- NOTE | 2017-05-17 15:36 | HHI.PR ---
Addendum to Inpatient Note Additional Information pt was seen today around 3 pm full note to follow Eda Hodge MD May 17, 2017 15:36
[2017-05-17 16:00] VITALS: BP 124/67; PULSE 96; RESP 20; TEMP 97.7; O2SAT 99
--- NOTE | 2017-05-17 17:11 | HHI.DS ---
Discharge Summary Admission Date Apr 26, 2017 at 22:16 Admitting Diagnosis severe sepsis, pneumonia, hepatic encephalopathy, acute kidney injur (1) HCAP (healthcare-associated pneumonia) ICD Code: J18.9 - Pneumonia, unspecified organism (2) sigmoid colon mass (3) Abdominal pain ICD Code: R10.9 - Unspecified abdominal pain (4) Encephalopathy ICD Code: G93.40 - Encephalopathy, unspecified (5) Electrolyte abnormality ICD Code: E87.8 - Other disorders of electrolyte and fluid balance, not elsewhere classified (6) Hypernatremia ICD Code: E87.0 - Hyperosmolality and hypernatremia (7) Tobacco abuse ICD Code: Z72.0 - Tobacco abuse Status: Chronic (8) Respiratory failure, acute ICD Code: J96.00 - Acute respiratory failure, unspecified whether with hypoxia or hypercapnia (9) COPD (chronic obstructive pulmonary disease) ICD Code: J44.9 - COPD (chronic obstructive pulmonary disease) Status: Chronic Brief History - From Admission 61-year-old male with a past medical history significant for COPD, tobacco and alcohol abuse, seizure disorder and CVA was brought to the emergency department via EMS under supposedly Dwyer act. The patient allegedly told the animal hospital clerk of the hotel where he is staying that he wants to . The police were called and the patient was brought to [facility]. Police reported that the patient will not be Dwyer acted but is being placed under arrest because he has an outstanding warrant. The patient was found to be wheezing severely in the emergency department, has a leukocytosis to 21.6 with a left shift and a left upper lobe pneumonia. He also has abdominal pain and severe ascites. CT of the abdomen and pelvis significant for severe abdominopelvic ascites and steatosis of the liver. Patient's lactic acid is elevated to 2.4. Ammonia 54. UA consistent with urinary tract infection. The patient refused to answer most of my questions during our interview. CBC/BMP: 05/15/17 0549 05/15/17 1050 Significant Findings Laboratory Tests Test 05/15/17 05:49 05/15/17 10:50 White Blood Count 17.2 TH/MM3 (4.0-11.0) Red Blood Count 3.18 MIL/MM3 (4.50-5.90) Hemoglobin 9.1 GM/DL (13.0-17.0) Hematocrit 29.8 % (39.0-51.0) Mean Corpuscular Hemoglobin Concent 30.7 % (32.0-36.0) Red Cell Distribution Width 21.5 % (11.6-17.2) Neutrophils (%) (Auto) 84.4 % (16.0-70.0) Lymphocytes (%) (Auto) 6.1 % (9.0-44.0) Neutrophils # (Auto) 14.5 TH/MM3 (1.8-7.7) Monocytes # (Auto) 1.1 TH/MM3 (0-0.9) Blood Urea Nitrogen 27 MG/DL (7-18) Random Glucose 114 MG/DL (74-106) Total Protein 6.1 GM/DL (6.4-8.2) Calcium Level 7.4 MG/DL (8.5-10.1) Potassium Level 3.4 MEQ/L (3.5-5.1) Chloride Level 112 MEQ/L (98-107) Carbon Dioxide Level 19.7 MEQ/L (21.0-32.0) Estimat Glomerular Filtration Rate 56 ML/MIN (>89) Protein Corrected Calcium 7.9 MG/DL (8.5-10.1) PE at Discharge GENERAL: NAD SKIN: Warm and dry. HEAD: Normocephalic. EYES: No scleral icterus. No injection or drainage. NECK: Supple, trachea midline. No JVD or lymphadenopathy. CARDIOVASCULAR: Regular rate and rhythm without murmurs, gallops, or rubs. RESPIRATORY: Breath sounds equal bilaterally. No accessory muscle use. GASTROINTESTINAL: Abdomen soft, non-tender, nondistended. MUSCULOSKELETAL: No cyanosis, or edema. BACK: Nontender without obvious deformity. No CVA tenderness. Pt Condition on Discharge: Deteriorating Discharge Disposition: Hospice/Med Facility Discharge Instructions DIET: Follow Instructions for: Heart Healthy Diet Speech Therapy-Diet Recommends: Honey Thickened Liquids, Pureed Activities you can perform: Regular-No Restrictions Mian Peguero MD May 17, 2017 17:11
--- NOTE | 2017-05-17 22:54 | HHI.IDPN ---
Subjective Subjective Remarks pt was seen earlier today around 1500 he was seen by hospice team, pending decision afebrile Antibiotics zosyn Allergies: Coded Allergies: codeine (Unverified Allergy, Severe, N/V, 04/26/17) propoxyphene (Unverified Allergy, Severe, HIVES, 04/26/17) Objective . Vital Signs Date Time Temp Pulse Resp B/P (MAP) Pulse Ox O2 Delivery O2 Flow Rate FiO2 05/17/17 16:00 97.7 96 20 124/67 (86) 99 05/17/17 12:00 97.8 99 19 134/63 (86) 98 05/17/17 09:09 95 Nasal Cannula 3.00 05/17/17 09:04 Nasal Cannula 3.00 05/17/17 08:00 97.3 96 20 126/71 (89) 96 05/17/17 00:24 96.6 96 17 119/72 (88) 96 05/17/17 05/17/17 05/18/17 15:00 23:00 07:00 Intake Total 120 ml 480 ml Output Total 600 ml Balance 120 ml -120 ml Intake Oral 120 ml 480 ml Output Urine Total 600 ml # Bowel Movements 2 Imaging Last Impressions Chest X-Ray 05/13/17 0000 Signed Impressions: Service Date/Time: May 07:28 - CONCLUSION: There is right lung airspace consolidation that is new. This could represent an infectious process in the appropriate clinical setting. Suggest follow-up to confirm resolution. Carmine Strong MD Liver Ultrasound 05/09/17 1000 Signed Impressions: Service Date/Time: Tuesday, May 09, 2017 17:16 - CONCLUSION: 1. Cirrhotic appearing liver with small amount of ascites. Ascites fluid primarily along the margin of the liver and spleen. 2. Prominent gallbladder wall with pericholecystic fluid. These findings are generally seen in the setting of liver cirrhosis but limit sensitivity for acute cholecystitis. Wallace Cordoba MD Abdomen/Pelvis CT 05/04/17 0000 Signed Impressions: Service Date/Time: Thursday, May 04, 2017 16:12 - CONCLUSION: 1. COPD changes with minimal bilateral effusions. 2. Small cirrhotic appearing liver with diffuse fatty infiltration. 3. Diffuse high density ascites throughout the abdomen similar in appearance to previous of 04/27/17. 4. Mild diffuse small bowel thickening with no evidence of obstruction. Andrzej Loaiza MD Brain MRI 05/02/17 0000 Signed Impressions: Service Date/Time: Tuesday, May 02, 2017 13:22 - CONCLUSION: 1. No evidence of acute infarction or acute hemorrhage. 2. Diffuse confluent disseminated white matter signal abnormalities in the supratentorial brain is nonspecific in appearance and could be due to diffuse white matter disease or ischemic process. Cliff Lugo MD Abdomen Ultrasound 04/30/17 0000 Signed Impressions: Service Date/Time: Sunday, April 30, 2017 11:40 - CONCLUSION: Moderate ascites is still present. Jesus Duncan MD Paracentesis 04/27/17 1452 Signed Impressions: Service Date/Time: Thursday, April 27, 2017 15:51 - CONCLUSION: 1. One complicated CT-guided paracentesis. 2. Profound hepatic steatosis. Wallace Cordoba MD Head CT 04/27/17 0000 Signed Impressions: Service Date/Time: Thursday, April 27, 2017 15:44 - CONCLUSION: Diffuse atrophy is present. Areas of encephalomalacia involving the right temporal tip and the left orbitofrontal cortices. No evidence of acute hemorrhage or edema Jesus Duncan MD Physical Exam CONSTITUTIONAL/GENERAL: This is an adequately nourished patient, in no apparent distress. TUBES/LINES/DRAINS: SKIN: No jaundice, rashes, or lesions. Skin temperature appropriate. Not diaphoretic. EYES: Pupils equal and round and reactive. Extraocular motions intact. No scleral icterus. No injection or drainage. Fundi not examined. CARDIOVASCULAR: Regular rate and rhythm without murmurs, gallops, or rubs. No JVD. Peripheral pulses symmetric. RESPIRATORY/CHEST: Symmetric, unlabored respirations. No rhochi to auscultation , but pt ws talking the entire exam. Breath sounds equal bilaterally. GASTROINTESTINAL: Abdomen soft, no pain to palpation, moderately distended. No hepato-splenomegaly, or palpable masses. No guarding. Bowel sounds present. draining fairly clear light yellow fluid from previous paracenthesis site LLQ and another draining site from RLQ with multiple 4x4 s sturated with odorless seorus fluid MUSCULOSKELETAL: Extremities without clubbing, cyanosis, + trace edema. NEUROLOGICAL:awake, alert, easily get agitated and very confused PSYCHIATRIC: calm , but non cooperative and confused Assessment & Plan Remarks Sepsis, shock: clinically resolved critically ill, stable ARF: resolving UTI, E.coli - ziegler S Ascitis, no e/o SBP WBC low in fluid, clx negtative Acute VDRF, PNA vs ARDS (more likely) - improving infiltrates SBP clx negative so far, but cell count cw SBP Leukocytosis , leukemoid reaction: - significantly improved Diarrhea, c.diff negative, bu clinically very suspicious for C.diff No spseudomembrannes on flex sig. sigmoid mass is a high grade adenoma New PNA, stable - agree with turning care to hospice dc abx if goes to hospice Eda Hodge MD May 17, 2017 22:54
== END 2017-05-17 19:16 | disposition hospice, home (50) | DRG 870 ==
LOC: NEPE 16:59 → NEDA 22:16 → N07A 23:19 → HIMW 04-27 07:41 → N07A 05-08 09:33
PROVIDERS: ADMIT Family Medicine; ATTEND Hospitalist
PROC: 0BH17EZ Insertion of Endotracheal Airway into Trachea, Via Natural or Artificial Opening (ICD-10-PCS; principal; 2017-04-27)
PROC: 5A1955Z Respiratory Ventilation, Greater than 96 Consecutive Hours (ICD-10-PCS; 2017-04-27)
PROC: 0W9G3ZX Drainage of Peritoneal Cavity, Percutaneous Approach, Diagnostic (ICD-10-PCS; 2017-04-27)
PROC: 02HV33Z Insertion of Infusion Device into Superior Vena Cava, Percutaneous Approach (ICD-10-PCS; 2017-04-27)
PROC: 0W9G3ZX Drainage of Peritoneal Cavity, Percutaneous Approach, Diagnostic (ICD-10-PCS; 2017-05-06)
PROC: 0DBN8ZX Excision of Sigmoid Colon, Via Natural or Artificial Opening Endoscopic, Diagnostic (ICD-10-PCS; 2017-05-10)
DX: A41.9 Sepsis, unspecified organism (principal); N17.0 Acute kidney failure with tubular necrosis; R65.21 Severe sepsis with septic shock; K76.7 Hepatorenal syndrome; J96.00 Acute respiratory failure, unspecified whether with hypoxia or hypercapnia; J18.9 Pneumonia, unspecified organism; J44.0 Chronic obstructive pulmonary disease with (acute) lower respiratory infection; G93.41 Metabolic encephalopathy; D68.9 Coagulation defect, unspecified; K65.2 Spontaneous bacterial peritonitis; E87.0 Hyperosmolality and hypernatremia; E87.2 Acidosis; N39.0 Urinary tract infection, site not specified; F05 Delirium due to known physiological condition; R45.851 Suicidal ideations; A04.72 Enterocolitis due to Clostridium difficile, not specified as recurrent; E86.0 Dehydration; E87.6 Hypokalemia; K70.31 Alcoholic cirrhosis of liver with ascites; E83.42 Hypomagnesemia; E83.51 Hypocalcemia; G40.909 Epilepsy, unspecified, not intractable, without status epilepticus; F32.9 Major depressive disorder, single episode, unspecified; F41.9 Anxiety disorder, unspecified; B96.20 Unspecified Escherichia coli [E. coli] as the cause of diseases classified elsewhere; B85.2 Pediculosis, unspecified; Z51.5 Encounter for palliative care; F17.210 Nicotine dependence, cigarettes, uncomplicated; K72.90 Hepatic failure, unspecified without coma; B19.20 Unspecified viral hepatitis C without hepatic coma; D50.9 Iron deficiency anemia, unspecified; K64.4 Residual hemorrhoidal skin tags; K64.8 Other hemorrhoids; D12.5 Benign neoplasm of sigmoid colon; D72.823 Leukemoid reaction; E87.70 Fluid overload, unspecified; F10.20 Alcohol dependence, uncomplicated; Z86.73 Personal history of transient ischemic attack (TIA), and cerebral infarction without residual deficits; Z91.19 Patient's noncompliance with other medical treatment and regimen; Z88.5 Allergy status to narcotic agent
CPT/HCPCS: 36556; 36600; 49082; 49083; 70450; 70551; 71010; 74176; 76705; 76937; 80048; 80053; 80074; 80076; 80202; 80307; 81001; 82042; 82140; 82150; 82805; 82945; 82948; 83605; 83615; 83690; 83735; 84100; 84132; 84155; 84157; 85007; 85025; 85027; 85610; 85730; 87040; 87070; 87077; 87086; 87186; 87205; 87493; 87522; 87641; 87902; 88112; 88305; 89051; 93005; 94002; 94003; 94150; 94640; 94664; 95819; 96365; C1729; J0456; J0610; J0692; J0696; J1720; J1940; J2060; J2248; J2250; J2354; J2370; J2543; J3010; J3370; J3411; J3475; J3480; J7030; J7040; J7042; J7050; J7070; J7512; J7613; P9045; P9047; Q9963